=== PATIENT | female | born 1955 | race Caucasian/White ===

== ENCOUNTER 2017-02-14 06:31 | Inpatient (IN) | payer OTHER ==
[2017-02-14] MEDS ORDERED: DEXAMETHASONE SOD PHOSPHATE 10 MG/1 ML VIAL ONE (06:40)
[2017-02-14] MEDS ORDERED: MAGNESIUM SULF 50% (8.12 MEQ/2 ML-1 GM VIAL) ONE (06:40)
[2017-02-14] MEDS ORDERED: ALBUTEROL SO4 2.5/IPRATROPIUM 0.5 INH SOL 3 ML VIAL.NEB. NEB ONE ×3 (06:41→09:31)
[2017-02-14 06:48] VITALS: BMI 31.9
[2017-02-14] MEDS ORDERED: methylPREDNISolone NA SUCC 125 MG/2 ML VIAL IVPB ONE (07:17)
--- NOTE | 2017-02-14 07:18 | PDOC ---
History of Present Illness <Yomaira Fine - Last Filed: 02/14/17 08:42> - General History Source: Patient Exam Limitations: No Limitations - History of Present Illness Initial Comments: 02/14/17 07:18 CHIEF COMPLAINT: Shortness of breath HISTORY OF PRESENT ILLNESS: This is a 61 year old female with a history of asthma/COPD (steroid dependent, uses O2 prn), GERD, osteoporosis, Essie's thyroiditis, and MGUS who presents to the ED complaining of shortness of breath. She was feeling slightly more short of breath and noted increased sputum production when she went to bed last night and. At around 2:30am, she woke up coughing and felt a "pop" in the left side of her chest, becoming acutely more short of breath. She denies fevers, chills, hemoptysis, leg pain/ swelling, or any other symptoms. V/s on arrival are notable for SpO2 of 91% on RA (patient states her baseline is 96%) and RR 30. PCP is Dr. La Burrell Resaw Tailer is Dr. James REVIEW OF SYSTEMS: GENERAL/CONSTITUTIONAL: No fever or chills. No weakness. No weight change. HEAD, EYES, EARS, NOSE AND THROAT: No change in vision. No ear pain or discharge. No sore throat. CARDIOVASCULAR: Chest pain/tightness, worse with deep breathing. RESPIRATORY: See HPI. GASTROINTESTINAL: No nausea, vomiting, diarrhea or constipation. GENITOURINARY: No dysuria, frequency, or change in urination. MUSCULOSKELETAL: New pain and swelling in DIPs. SKIN: No rash or easy bruising. NEUROLOGIC: No headache, vertigo, loss of consciousness, or loss of sensation. PSYCHIATRIC: No depression or anxiety. ENDOCRINE: No increased thirst. No abnormal weight change. HEMATOLOGIC/LYMPHATIC: No anemia, easy bleeding, or history of blood clots. ALLERGIC/IMMUNOLOGIC: PCN and fluoroquinolone allergies. PHYSICAL EXAM: GENERAL: The patient is awake, alert, and in respiratory distress. ENT: Pupils equal, round and reactive to light, extraocular movements intact, sclera anicteric, conjunctiva clear. Neck supple. LUNGS: Breath sounds absent left side. Wheezing in right lung nolan. Tachypneic with accessory muscle use. CV: RRR, S1/S2, no MRG. Cap refill < 2 sec. ABDOMEN: Soft, obese, non-tender. EXTREMITIES: 1+ pitting LE edema bilaterally. NEUROLOGICAL: Normal speech. CN II-XII grossly intact. PSYCH: Normal mood, normal affect. SKIN: Warm, dry, normal turgor, no rashes or lesions noted. <Jami Dixon - Last Filed: 02/14/17 11:13> - General Chief Complaint: Respiratory Stated Complaint: DIFFICULTY BREATHING Time Seen by Provider: 02/14/17 07:10 Past History <Yomaira Fine - Last Filed: 02/14/17 08:42> - Past Medical History Asthma: Yes Cancer: No Cardiac Disorders: No CVA: No COPD: No CHF: No Diabetes: Yes (steroid induced pre-diabetic) GI Disorders: No Disorders: No HTN: No Hypercholesterolemia: No Liver Disease: No Seizures: No Thyroid Disease: No - Surgical History Abdominal Surgery: No Appendectomy: No Cardiac Surgery: No Cholecystectomy: No Lung Surgery: No Neurologic Surgery: No Orthopedic Surgery: Yes (numerous foot surgeries) - Psycho/Social/Smoking Cessation Hx Anxiety: No Suicidal Ideation: No Smoking History: Unknown if ever smoked Have you smoked in the past 12 months: No Number of Cigarettes Smoked Daily: 1 If you are a former smoker, when did you quit?: 2014 'Breaking Loose' booklet given: 02/27/16 Hx Alcohol Use: No Drug/Substance Use Hx: No Substance Use Type: None Hx Substance Use Treatment: No <Jami Dixon - Last Filed: 02/14/17 11:13> - Past Medical History Allergies/Adverse Reactions: Allergies Allergy/AdvReac Type Severity Reaction Status Date / Time Penicillins Allergy Intermediate Rash Verified 02/14/17 06:36 fluoroquinolones Allergy Severe Difficulty Uncoded 02/14/17 06:36 Breathing Home Medications: Ambulatory Orders Albuterol Sulfate Inhaler - [Ventolin HFA Inhaler -] 2 puff IH Q4H 09/11/15 Atorvastatin Ca [Lipitor] 20 mg PO HS 02/14/17 Azelastine/Fluticasone [Dymista Nasal [place]] 23 gm NS BID 02/14/17 BUPROPion HCL "SR" [Wellbutrin Sr [Nf]] 150 mg PO DAILY 02/14/17 Budesonide/Formeterol Fumarate [SYMBICORT 160/4.5mcg -] 2 inh PO BID 02/14/17 Cetirizine HCl [Zyrtec -] 10 mg PO DAILY 02/14/17 Cyclobenzaprine HCl [Flexeril 10 mg] 10 mg PO BID PRN 02/14/17 Cyclosporine [Restasis] 1 each OP BID 02/14/17 Lorazepam [Ativan] 1 mg PO DAILY PRN 02/14/17 Montelukast Na [Singulair -] 10 mg PO HS 02/14/17 Prednisone [Deltasone -] 0 mg PO ASDIR 02/14/17 *Physical Exam - Vital Signs Last Vital Signs Temp Pulse Resp BP Pulse Ox 69 22 142/86 92 L 02/14/17 06:36 02/14/17 06:36 02/14/17 06:36 02/14/17 06:36 <Yomaira Fine - Last Filed: 02/14/17 08:42> - Vital Signs Last Vital Signs Temp Pulse Resp BP Pulse Ox 69 22 142/86 92 L 02/14/17 06:36 02/14/17 06:36 02/14/17 06:36 02/14/17 06:36 <Jami Dixon - Last Filed: 02/14/17 11:13> Procedures - Chest Tube Left Mid Axillary Line Indication: Pneumothorax Anesthesia: 2% Lidocaine Sterile Draping: Yes Sterile Technique: Yes Marte of Air Tompkins: Yes Vaseline Gauze Dressing: Yes Tube Sutured to Skin: Yes Complications: No Post Procedure CXR: Yes Progress: 02/14/17 08:30 Paitent pulse ox was initially 91. A chest tube thoracostomy was performed on the left side. Area was cleaned with chlorhexidine and anesthetized with 2% lidocaine without epinephrine. Pigtail catheter was guided in between the ribs and lung was subsequently drained. Area was dressed with xeroform petrolatum and gauze. Patients pulse ox leveled to 100 at this time. <Yomaira Fine - Last Filed: 02/14/17 08:42> Heart Score/ECG Review - ECG Intrepretation Comment:: 02/14/17 10:21 NSR at 99bpm, no ST or T wave changes <aJmi Dixon - Last Filed: 02/14/17 11:13> ED Treatment Course - LABORATORY CBC & Chemistry Diagram: 02/14/17 07:45 02/14/17 07:45 - ADDITIONAL ORDERS Additional order review: Laboratory Results 02/14/17 07:45 INR 0.96 02/14/17 07:45 RBC 5.06 MCV 75.3 L MCHC 31.9 L RDW 18.7 H MPV 7.6 Neutrophils % Y Lymphocytes % Y - Medications Given in the ED: ED Medications Discontinued Medications Generic Name Dose Route Start Last Admin Trade Name Abril PRN Reason Stop Dose Admin Albuterol/Ipratropium 1 amp 02/14/17 07:30 02/14/17 07:51 Duoneb - NEB 02/14/17 07:46 1 amp Q15M KAMLESH Administration Hydromorphone HCl 1 mg 02/14/17 07:40 02/14/17 07:50 Dilaudid Injection - IVPUSH 02/14/17 07:41 1 mg ONCE ONE Administration Methylprednisolone Sodium Succinate 125 mg 02/14/17 07:17 02/14/17 07:50 Solu-Medrol - IVPB 02/14/17 07:18 125 mg ONCE ONE Administration <Uts,Yomaira - Last Filed: 02/14/17 08:42> - LABORATORY CBC & Chemistry Diagram: 02/14/17 07:45 02/14/17 07:45 - RADIOLOGY Radiology Studies Ordered: Category Date Time Status CHEST PA & LAT [RAD] Stat Radiology 02/14/17 07:17 Ordered <Jami Dixon - Last Filed: 02/14/17 11:13> Medical Decision Making - Critical Care Time Total Critical Care Time (minutes): 30 Critical Care Statement: The care of this patient involved high complexity decision making to prevent further life threatening deterioration of the patient 's condition and/or to evalute & treat vital organ system(s) failure or risk of failure. <Uts,Yomaira - Last Filed: 02/14/17 08:42> - Medical Decision Making 02/14/17 09:25 A/P: 61 year old female with cough and shortness of breath, suspect spontaneous PTX. 1. Patient accompanied for AP CXR - large left PTX seen 2. Pigtail catheter placed by Dr. Mejia with improvement in SpO2, improved work of breathing 3. Labs sent and notable for WBC 27.0 - patient does have chronic leukocytosis, but this is above baseline; troponin elevated at 0.18, ASA given, no ischemic changes on EKG 4. Repeat CXR shows decreased PTX; increased lung markings at right base noted 5. Will give Ceftriaxone (not history of PCN anaphylaxis, recently completed course of azithromycin for sinusitis) 6. DuoNebs and Solu-Medrol 125mg IVP given 7. Will request admission to telemetry - accepted by Dr. Gloria Burrell 02/14/17 11:[address] Valentin; he is not livestock commission agent and unavailable today. If repeat troponins are trending up, service digital imaging technician should be notified. Otherwise, he will see patient tomorrow. <Jami Dixon - Last Filed: 02/14/17 11:13> *DC/Admit/Observation/Transfer - Attestations Scribe Attestion: 02/14/17 08:32 Documentation prepared by Yomaira Fine, acting as medical language specialist for Beatriz Mejia MD. <Yomaira Fine - Last Filed: 02/14/17 08:42> - Discharge Dispostion Admit: Yes <Jami Dixon - Last Filed: 02/14/17 11:13> Diagnosis at time of Disposition: Elevated troponin Pneumothorax Qualifiers: Pneumothorax type: other pneumothorax Qualified Code(s): J93.83 - Other pneumothorax - Referrals
[2017-02-14] MEDS: ALBUTEROL SO4 2.5/IPRATROPIUM 0.5 INH SOL 3 ML VIAL.NEB. NEB SCH ×2 (07:30→07:51)
[2017-02-14] MEDS ORDERED: HYDROmorphone HCL CARPU-JECT 1 MG/1 ML DISP.SYRIN IVPUSH ONE ×2 (07:40→09:13)
[2017-02-14] MEDS ORDERED: HYDROmorphone HCL CARPU-JECT 1 MG/1 ML DISP.SYRIN ONE ×3 (07:42→12:48)
[2017-02-14 07:53] LABS: MCHC 31.9 g/dl (32.0-36.0); MEAN CELL VOLUME 75.3 fl (80-96); MEAN PLT VOLUME 7.6 fl (7.5-11.1); PLATELET COUNT 337 K/MM3 (134-434); RDW 18.7 % (11.6-15.6); WHITE BLOOD COUNT 27.9 K/mm3 (4.0-10.0)
[2017-02-14 08:07] LABS: INR 0.96 (0.82-1.09); PROTHROMBIN TIME (PATIENT) 10.6 SEC (9.98-11.88)
[2017-02-14] MEDS ORDERED: LIDOCAINE HCL 2% (20ML MULTI-DOSE VIAL) NR ONE (08:08)
[2017-02-14 08:31] LABS: ALBUMIN 3.5 g/dl (3.4-5.0); ANION GAP 10 (8-16); BILIRUBIN,TOTAL 0.2 mg/dL (0.2-1.0); CALCIUM 8.4 mg/dL (8.5-10.1); CO2 25 mmol/L (21-32); COCKROFT - GAULT 89.3605; CREATININE 0.8 mg/dL (0.55-1.02); GLUCOSE,RANDOM 100 mg/dL (74-106); SGOT/AST 27 U/L (15-37); SGPT/ALT 38 U/L (12-78)
[2017-02-14 08:32] LABS: ALK PHOS 55 U/L (45-117); TROPONIN I 0.18 ng/ml (0.00-0.05)
[2017-02-14 08:33] LABS: ANISOCYTOSIS 1+; PLATELET ESTIMATE ADEQUATE (NORMAL); POLYCHROMASIA FEW
--- NOTE | 2017-02-14 08:42 | PDOC ---
*Physical Exam - Vital Signs Last Vital Signs Temp Pulse Resp BP Pulse Ox 69 22 142/86 92 L 02/14/17 06:36 02/14/17 06:36 02/14/17 06:36 02/14/17 06:36 - Physical Exam General Appearance: Yes: Nourished HEENT: positive: Normal ENT Inspection Neck: positive: Trachea midline Respiratory/Chest: positive: Lungs Clear, Decreased Breath Sounds, Other ( decreased breath sounds left lung, wheezing bilaterally) Cardiovascular: positive: Regular Rhythm, Regular Rate, S1, S2. negative: Edema , JVD, Murmur Vascular Pulses: Dorsalis-Pedis (R): 2+, Doralis-Pedis (L): 2+ Gastrointestinal/Abdominal: positive: Normal Bowel Sounds. negative: Tender, Flat Rectal Exam: negative: heme negative stool Musculoskeletal: positive: Normal Inspection. negative: CVA Tenderness Extremity: positive: Normal Capillary Refill, Normal Inspection, Normal Range of Motion Integumentary: positive: Normal Color, Dry, Warm Neurologic: positive: Fully Oriented, Alert, Normal Mood/Affect, Normal Response ED Treatment Course - LABORATORY CBC & Chemistry Diagram: 02/26/17 05:18 02/26/17 05:18 - ADDITIONAL ORDERS Additional order review: Laboratory Results 02/14/17 02/14/17 02/14/17 07:45 07:45 07:45 INR 0.96 Sodium 141 Potassium 4.1 Chloride 106 Carbon Dioxide 25 Anion Gap 10 BUN 17 D Creatinine 0.8 Creat Clearance w eGFR > 60 Random Glucose 100 Calcium 8.4 L Total Bilirubin 0.2 D AST 27 D ALT 38 Alkaline Phosphatase 55 D Creatine Kinase 254 H D Troponin I 0.18 H Total Protein 7.0 Albumin 3.5 02/14/17 07:45 RBC 5.06 MCV 75.3 L MCHC 31.9 L RDW 18.7 H MPV 7.6 Neutrophils % 88.0 H Lymphocytes % 6.0 L D Monocytes % 5.0 D - Medications Given in the ED: ED Medications Discontinued Medications Generic Name Dose Route Start Last Admin Trade Name Freq PRN Reason Stop Dose Admin Albuterol/Ipratropium 1 amp 02/14/17 07:30 02/14/17 07:51 Duoneb - NEB 02/14/17 07:46 1 amp Q15M KAMLESH Administration Hydromorphone HCl 1 mg 02/14/17 07:40 02/14/17 07:50 Dilaudid Injection - IVPUSH 02/14/17 07:41 1 mg ONCE ONE Administration Methylprednisolone Sodium Succinate 125 mg 02/14/17 07:17 02/14/17 07:50 Solu-Medrol - IVPB 02/14/17 07:18 125 mg ONCE ONE Administration Medical Decision Making - Medical Decision Making 02/14/17 08:38 61 yo F COPD here today with sob and wheezing, was using breathing treatment at home, suddenly felt pop, suddenly had left sided chest pain, and sob. no h/o bleb, or prior known ptx. no known h/o cancer. no fever or chills. no n/v no on exam awake, alert, bilat wheezing, mild tachypnea, mild acces. muscle use. heart RRR no m/r/g. abd soft nt nd. ext no edema wwp. MDM: pna, copd excacerbation, chf, ptx. plan cxr nebs steroids, labs, ekg ttrop. CXR with PTX chest pigtail placed for spontaneous ptx, pt improved. tolerated well. oxygen sats 100 following. prior to procedure, old ct confirmed no h/o blebs from 4 mo prior. plan pulmonary consult ( pt pulm dr. Eleanor Connell) and admit. continued nebs. abx. 02/26/17 09:58 *DC/Admit/Observation/Transfer Diagnosis at time of Disposition: Elevated troponin Pneumothorax Qualifiers: Pneumothorax type: other pneumothorax Qualified Code(s): J93.83 - Other pneumothorax - Discharge Dispostion Admit: Yes - Referrals - Patient Instructions - Post Discharge Activity
[2017-02-14] MEDS ORDERED: AZITHROMYCIN IVPB 500 MG in DEXTROSE 5%-WATER - 250 ML IVPB ONE (09:27)
[2017-02-14] MEDS ORDERED: CEFTRIAXONE 1 GM in DEXTROSE 5%-WATER - 50 ML IVPB ONE (09:28)
[2017-02-14] MEDS ORDERED: CEFTRIAXONE 50 ML ONE (09:41)
[2017-02-14] MEDS ORDERED: ASPIRIN 81 MG CHEWABLE TABLETS PO SCH (10:00)
[2017-02-14] MEDS ORDERED: ASPIRIN 81 MG CHEWABLE TABLETS ONE (10:03)
[2017-02-14] MEDS: ALBUTEROL SO4 0.083% IH SOL 2.5 MG/3 ML VIAL.NEB. NEB SCH ×2 (10:15→10:30)
[2017-02-14 12:14] LABS: TROPONIN I 0.22 ng/ml (0.00-0.05)
--- NOTE | 2017-02-14 12:46 | HP ---
Admitting History and Physical - Primary Care Physician PCP: Amarjit Burrell - Admission Chief Complaint: CP, SOB History of Present Illness: Pt. with Hx/o COPD, Acute bronchitis for the last 2 weeks, treated with Prednison and Zitromax) by PCP (Dr. Ladarius Burrell) and Pulmonary (Dr. James), last night woke up and cough when heard a "pop" and developed CP and SOB. Pt. came to ER and was found to have left side pneumotorax; chest tube was placed in ER. Pt. also with elevated CE. Pt was admitted to Telemetry. 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: Peripheral Neuropathy (left hand) Cardiovascular: Yes: CHF (Diastolic) Pulmonary: Yes: Asthma, COPD Gastrointestinal: Yes: GERD Heme/Onc: Yes: Other (MGUS) - Past Surgical History Additional Past Surgical History: Foot Surgery Cataract surgery - Smoking History Smoking history: Unknown if ever smoked Have you smoked in the past 12 months: No Aproximately how many cigarettes per day: 1 If you are a former smoker, when did you quit?: 2014 - Alcohol/Substance Use Hx Alcohol Use: No - Social History History of Recent Travel: No Home Medications - Allergies Allergies/Adverse Reactions: Allergies Allergy/AdvReac Type Severity Reaction Status Date / Time Penicillins Allergy Intermediate Rash Verified 02/14/17 06:36 fluoroquinolones Allergy Severe Difficulty Uncoded 02/14/17 06:36 Breathing - Home Medications Home Medications: Ambulatory Orders Albuterol Sulfate Inhaler - [Ventolin HFA Inhaler -] 2 puff IH Q4H 09/11/15 Atorvastatin Ca [Lipitor] 20 mg PO HS 02/14/17 Azelastine/Fluticasone [Dymista Nasal [place]] 23 gm NS BID 02/14/17 BUPROPion HCL "SR" [Wellbutrin Sr [Nf]] 150 mg PO DAILY 02/14/17 Budesonide/Formeterol Fumarate [SYMBICORT 160/4.5mcg -] 2 inh PO BID 02/14/17 Cetirizine HCl [Zyrtec -] 10 mg PO DAILY 02/14/17 Cyclobenzaprine HCl [Flexeril 10 mg] 10 mg PO BID PRN 02/14/17 Cyclosporine [Restasis] 1 each OP BID 02/14/17 Lorazepam [Ativan] 1 mg PO DAILY PRN 02/14/17 Montelukast Na [Singulair -] 10 mg PO HS 02/14/17 Prednisone [Deltasone -] 0 mg PO ASDIR 02/14/17 Family Disease History - Family Disease History Family History: Denies Review of Systems - Review of Systems Constitutional: denies: Chills, Fever Eyes: denies: Blurred Vision, Double Vision HENT: denies: Difficult Swallowing, Ear Discharge, Ear Pain, Throat Pain Neck: denies: Decreased ROM, Stiffness Cardiovascular: reports: Chest Pain (with breathing), Shortness of Breath. denies: Edema, Palpitations Respiratory: reports: Cough, Wheezing Gastrointestinal: denies: Abdominal Pain, Constipation, Diarrhea, Nausea, Vomiting Genitourinary: denies: Burning, Discharge, Flank Pain Musculoskeletal: denies: Back Pain, Joint Pain Integumentary: denies: Bruising, Erythema, Rash Neurological: denies: Change in LOC, Change in Speech, Confusion, Dizziness Endocrine: denies: Excessive Sweating, Unexplained Weight Gain Hematology/Lymphatic: denies: Easily Bruised, Excessive Bleeding Psychiatric: denies: Anxiety, Depression Physical Examination Vital Signs: Vital Signs Temperature Pulse Rate 99 H 02/14/17 09:30 Respiratory Rate 24 02/14/17 09:30 Blood Pressure 141/79 02/14/17 09:30 O2 Sat by Pulse Oximetry (%) 92 L 02/14/17 09:30 Constitutional: Yes: Mild Distress (secondary to pain) Eyes: Yes: Conjunctiva Clear, EOM Intact, PERRL HENT: Yes: Atraumatic. No: Epistaxis, Rhinnorhea Neck: Yes: Trachea Midline. No: Lymphadenopathy Cardiovascular: Yes: Regular Rate and Rhythm, Tachycardia, S1, S2 Respiratory: Yes: Wheezes, Other (decreased BS on Left side). No: CTA Bilaterally Gastrointestinal: Yes: Normal Bowel Sounds, Soft, Abdomen, Obese. No: Tenderness ...Rectal Exam: Yes: Deferred Breast(s): Yes: Other (deferred) Musculoskeletal: No: Back Pain, Joint Swelling Edema: No Integumentary: No: Erythema, Rash Neurological: Yes: Alert, Oriented, Cran Nerves II-XII Intact Psychiatric: Yes: Alert, Oriented Labs: reviewed Imaging - Results Chest X-ray: Report Reviewed, Image Reviewed Problem List - Problems (1) Pneumothorax Assessment/Plan: s/p Chest tube placement. Pulmonary consult. Case was d/w Dr. 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 Pt. also received Zithromax. To cont. both. Code(s): J44.1 - CHRONIC OBSTRUCTIVE PULMONARY DISEASE W (ACUTE) EXACERBATION (3) Elevated troponin Assessment/Plan: Cardio consult. Pt. states that saw Dr. Izquierdo 1 or 2 years ago, had few tests and everything came back OK. Serial CE. ASA Lipitor Consider BB ECHO Code(s): R74.8 - ABNORMAL LEVELS OF OTHER SERUM ENZYMES (4) Chest pain Code(s): R07.9 - CHEST PAIN, UNSPECIFIED Assessment/Plan Case was reviewed with pt and familly at bedside, all questions were answered DVT proph- Heparin SQ Pain control- Dilaudid IVPB; to adjust for comfort w/o affecting respiratory function. Case was d/w pt's nurse ( several times). AM labs. Time spent for managing pt.'s care: over 80 min.
[2017-02-14] MEDS: HYDROmorphone HCL CARPU-JECT 1 MG/1 ML DISP.SYRIN IVPB PRN ×3 (13:01→22:12)
--- NOTE | 2017-02-14 13:24 | CON.PULM ---
Consult Consult Specialty:: PULMONARY Referred by:: Dr. Burrell Reason for Consultation:: pneumothorax - History of Present Illness Chief Complaint: chest pain History of Present Illness: 61yo female with h/o COPD, chronic hypoxic respiratory failure on home O2, GERD , osteoporosis, Essie's thyroiditis, MGUS who presents with sudden onset of chest pain and shortness of breath which woke her up from sleep. She felt a "pop " in her chest. No reported trauma. No prior history of pneumothorax. She stopped smoking a year and a half ago, started at age 27 and smoked on average 1 /2 PPD. She is maintained on chronic prednisone. Noted to have a left sided pneumothorax in the ER, pigtail catheter placed with partial re-expansion of the lung. 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) Cardio/Vascular: Yes: CHF (Diastolic) Pulmonary: Yes: Asthma, COPD Gastrointestinal: Yes: GERD Endocrine: Yes: Hypothyroidism - Alcohol/Substance Use Hx Alcohol Use: No - Smoking History Smoking history: Unknown if ever smoked Have you smoked in the past 12 months: No Aproximately how many cigarettes per day: 1 If you are a former smoker, when did you quit?: 2014 - Social History History of Recent Travel: No Home Medications - Allergies Allergies/Adverse Reactions: Allergies Allergy/AdvReac Type Severity Reaction Status Date / Time Penicillins Allergy Intermediate Rash Verified 02/14/17 06:36 fluoroquinolones Allergy Severe Difficulty Uncoded 02/14/17 06:36 Breathing - Home Medications Home Medications: Ambulatory Orders Albuterol Sulfate Inhaler - [Ventolin HFA Inhaler -] 2 puff IH Q4H 09/11/15 Atorvastatin Ca [Lipitor] 20 mg PO HS 02/14/17 Azelastine/Fluticasone [Dymista Nasal [place]] 23 gm NS BID 02/14/17 BUPROPion HCL "SR" [Wellbutrin Sr [Nf]] 150 mg PO DAILY 02/14/17 Budesonide/Formeterol Fumarate [SYMBICORT 160/4.5mcg -] 2 inh PO BID 02/14/17 Cetirizine HCl [Zyrtec -] 10 mg PO DAILY 02/14/17 Cyclobenzaprine HCl [Flexeril 10 mg] 10 mg PO BID PRN 02/14/17 Cyclosporine [Restasis] 1 each OP BID 02/14/17 Lorazepam [Ativan] 1 mg PO DAILY PRN 02/14/17 Montelukast Na [Singulair -] 10 mg PO HS 02/14/17 Prednisone [Deltasone -] 0 mg PO ASDIR 02/14/17 Review of Systems - Review of Systems Constitutional: denies: Chills, Fever Eyes: denies: Recent Change in Vision HENT: denies: Nasal Congestion, Throat Pain Neck: denies: Tenderness Cardiovascular: reports: Chest Pain, Shortness of Breath. denies: Edema, Palpitations Respiratory: reports: Cough, SOB. denies: Hemoptysis, Wheezing Gastrointestinal: denies: Abdominal Pain, Nausea, Vomiting Genitourinary: denies: Dysuria, Hematuria Neurological: denies: Dizziness, Headache Physical Exam Vital Sings: Vital Signs Temperature Pulse Rate 99 H 02/14/17 09:30 Respiratory Rate 24 02/14/17 09:30 Blood Pressure 141/79 02/14/17 09:30 O2 Sat by Pulse Oximetry (%) 92 L 02/14/17 09:30 Constitutional: Yes: Anxious Eyes: Yes: Conjunctiva Clear, EOM Intact HENT: Yes: Atraumatic, Normocephalic Neck: Yes: Supple, Trachea Midline Cardiovascular: Yes: Regular Rate and Rhythm Respiratory: Yes: Diminished (distant breath sounds) ...Clubbing: No Gastrointestinal: Yes: Normal Bowel Sounds, Soft. No: Tenderness Edema: No Neurological: Yes: Alert, Oriented Imaging - Results Chest X-ray: Report Reviewed, Image Reviewed (left pneumothorax) Problem List - Problems (1) Pneumothorax Code(s): J93.9 - PNEUMOTHORAX, UNSPECIFIED Qualifiers: Pneumothorax type: other pneumothorax Qualified Code(s): J93.83 - Other pneumothorax; J93.8 - Other pneumothorax and air leak (2) COPD exacerbation Code(s): J44.1 - CHRONIC OBSTRUCTIVE PULMONARY DISEASE W (ACUTE) EXACERBATION (3) Chest pain Code(s): R07.9 - CHEST PAIN, UNSPECIFIED (4) Elevated troponin Code(s): R74.8 - ABNORMAL LEVELS OF OTHER SERUM ENZYMES Assessment/Plan Spontaneous Pneumothorax COPD Chronic Hypoxic Respiratory Failure MGUS +Troponins - continue pigtail catheter to low wall suction - repeat CXR in AM - if pneumothorax resolved, will clamp tube and repeat CXR - supplemental O2 - continue steroids - inhaled bronchodilators - DVT prophylaxis Thank you for this consult Rosendo Pierre MD
[2017-02-14] MEDS: ALBUTEROL SO4 2.5/IPRATROPIUM 0.5 INH SOL 3 ML VIAL.NEB. NEB PRN (14:04)
[2017-02-14 14:09] LABS: TROPONIN I 0.28 ng/ml (0.00-0.05)
[2017-02-14] MEDS: PANTOPRAZOLE 20 MG TABLET (FP) PO SCH (14:50)
[2017-02-14] MEDS: LORATADINE 10 MG TABLET PO SCH (14:51)
[2017-02-14] MEDS ORDERED: PT OWN MED DRAWER 7, Y5N ONE (16:59)
[2017-02-14] MEDS: BUDESONIDE/FORMETEROL FUMARATE 160/4.5 mcg INHALER IH SCH (21:57)
[2017-02-14] MEDS: MONTELUKAST NA 10 MG TABLET PO SCH (21:58)
[2017-02-14] MEDS: HEPARIN NA (PORCINE) 5,000 UNITS/ML 1ML VIAL SQ SCH (21:58)
[2017-02-14] MEDS ORDERED: ATORVASTATIN CA 40 MG TABLET (FP) PO ONE (22:00)
[2017-02-14] MEDS ORDERED: ATORVASTATIN CA 20 MG TABLET (FP) PO SCH (22:00)
[2017-02-15] MEDS: HYDROmorphone HCL CARPU-JECT 1 MG/1 ML DISP.SYRIN IVPB PRN ×3 (04:55→20:58)
[2017-02-15 07:02] LABS: MCH 23.8 pg (25.7-33.7); MCHC 31.5 g/dl (32.0-36.0); MEAN CELL VOLUME 75.5 fl (80-96); PLATELET COUNT 352 K/MM3 (134-434); RDW 18.7 % (11.6-15.6); WHITE BLOOD COUNT 23.9 K/mm3 (4.0-10.0)
[2017-02-15 07:25] LABS: ALBUMIN 3.7 g/dl (3.4-5.0); ANION GAP 6 (8-16); CALCIUM 8.8 mg/dL (8.5-10.1); CO2 30 mmol/L (21-32); GLUCOSE,RANDOM 88 mg/dL (74-106); SGPT/ALT 39 U/L (12-78)
[2017-02-15 07:38] LABS: ALK PHOS 53 U/L (45-117); BILIRUBIN,TOTAL 0.4 mg/dL (0.2-1.0); COCKROFT - GAULT 89.3605; CREATININE 0.8 mg/dL (0.55-1.02); SGOT/AST 37 U/L (15-37); THYROID STIMULATING HORMONE 1.18 uIU/ml (0.358-3.74); TOT PROT 7.2 g/dl (6.4-8.2)
--- NOTE | 2017-02-15 09:10 | CON.CARD ---
Consult Consult Specialty:: cardiology Referred by:: neri Reason for Consultation:: cp, elev troponin - History of Present Illness Chief Complaint: cp/sob History of Present Illness: 61yo female presented with sudden onset of chest pain and shortness of breath which woke her up from sleep. describes feeling a "pop" in her chest. No prior history of pneumothorax. on prednisone maintenance for copd. in ER, cxr revealed left sided pneumothora-- pigtail catheter placed with partial re-expansion of the lung. still feeling sob; also admits to ongoing cp though mild and improved vs prior + cough and wheeze no palpitations PMH: COPD, chronic hypoxic respiratory failure on home O2, longtime prior cigs, GERD, osteoporosis, Essie's thyroiditis, MGUS, HPL - Past Medical History [employer]: Yes: Peripheral Neuropathy (left hand) Cardio/Vascular: Yes: CHF (Diastolic) Pulmonary: Yes: Asthma, COPD Gastrointestinal: Yes: GERD Endocrine: Yes: Hypothyroidism - Alcohol/Substance Use Hx Alcohol Use: No - Smoking History Smoking history: Unknown if ever smoked Have you smoked in the past 12 months: No Aproximately how many cigarettes per day: 1 If you are a former smoker, when did you quit?: 2014 - Social History History of Recent Travel: No Home Medications - Allergies Allergies/Adverse Reactions: Allergies Allergy/AdvReac Type Severity Reaction Status Date / Time Penicillins Allergy Intermediate Rash Verified 02/14/17 06:36 fluoroquinolones Allergy Severe Difficulty Uncoded 02/14/17 06:36 Breathing - Home Medications Home Medications: Ambulatory Orders Albuterol Sulfate Inhaler - [Ventolin HFA Inhaler -] 2 puff IH Q4H 09/11/15 Atorvastatin Ca [Lipitor] 20 mg PO HS 02/14/17 Azelastine/Fluticasone [Dymista Nasal [place]] 23 gm NS BID 02/14/17 BUPROPion HCL "SR" [Wellbutrin Sr [Nf]] 150 mg PO DAILY 02/14/17 Budesonide/Formeterol Fumarate [SYMBICORT 160/4.5mcg -] 2 inh PO BID 02/14/17 Cetirizine HCl [Zyrtec -] 10 mg PO DAILY 02/14/17 Cyclobenzaprine HCl [Flexeril 10 mg] 10 mg PO BID PRN 02/14/17 Cyclosporine [Restasis] 1 each OP BID 02/14/17 Lorazepam [Ativan] 1 mg PO DAILY PRN 02/14/17 Montelukast Na [Singulair -] 10 mg PO HS 02/14/17 Prednisone [Deltasone -] 0 mg PO ASDIR 02/14/17 Family Disease History - Family Disease History Family History: Denies (no cmp) Review of Systems - Review of Systems Constitutional: denies: Chills, Fever Eyes: denies: Eye Pain HENT: denies: Nasal Congestion Neck: denies: Stiffness Cardiovascular: denies: Palpitations Respiratory: reports: Cough, Wheezing Gastrointestinal: denies: Diarrhea, Rectal Bleeding Genitourinary: denies: Burning, Hematuria Musculoskeletal: denies: Muscle Pain Integumentary: denies: Rash Neurological: denies: Numbness, Seizure, Syncope Endocrine: denies: Excessive Sweating Hematology/Lymphatic: denies: Excessive Bleeding Vital Signs: Vital Signs Temperature 97.4 F L 02/15/17 05:37 Pulse Rate 88 02/15/17 05:37 Respiratory Rate 20 02/15/17 05:37 Blood Pressure 133/78 02/15/17 05:37 O2 Sat by Pulse Oximetry (%) 95 02/14/17 21:00 Constitutional: Yes: Well Nourished, No Distress Eyes: No: Sclera Icterus HENT: No: Nasal Congestion Neck: No: Decreased ROM Respiratory: Yes: Wheezes. No: Accessory Muscle Use, Rales Gastrointestinal: Yes: Normal Bowel Sounds. No: Distention, Hepatomegaly, Palpable Mass, Tenderness Cardiovascular: Yes: Regular Rate and Rhythm JVD: No Carotid Bruit: No PMI: Non-Displaced Heart Sounds: Yes: S1, S2. No: Gallop Murmur: No: Systolic Murmur, Diastolic Murmur Musculoskeletal: Yes: Other (No kyphosis) Extremities: No: Cold, Cyanosis Edema: No Peripheral Pulses: 2+ Left Carotid, 2+ Right Carotid, 2+ Left Doralis Pedis, 2+ Right Dorsalis Pedis Integumentary: No: Jaundice Neurological: Yes: Alert, Oriented (x3) Psychiatric: No: Agitated - Other Data Labs, Other Data: CBC, BMP 02/15/17 05:35 02/15/17 05:35 INR, PTT INR 0.96 (0.82-1.09) 02/14/17 07:45 Troponin, BNP 02/14/17 02/14/17 11:30 13:08 Troponin I 0.22 H 0.28 H Troponin, BNP 02/14/17 02/14/17 11:30 13:08 Troponin I 0.22 H 0.28 H Laboratory Tests 02/14/17 02/14/17 02/14/17 07:45 11:30 13:08 WBC Hgb Plt Count Sodium Potassium Carbon Dioxide BUN Creatinine AST ALT Creatine Kinase 254 H D 356 H D 393 H Troponin I 0.18 H 0.22 H 0.28 H TSH 02/15/17 02/15/17 05:35 05:35 WBC 23.9 H Hgb 11.8 Plt Count 352 Sodium 139 Potassium 4.1 Carbon Dioxide 30 BUN 19 H Creatinine 0.8 AST 37 D ALT 39 Creatine Kinase Troponin I TSH 1.18 tele: NSR ekg: NSR, normal axis, no path q's; no ST-T abnormality Assessment/Plan spontaneous PTX, severe copd on home O2 and maintenance steroids with a.e. here: -s/p pigtail catheter insertion -plan per pulm team -tx of copd per pulm as well elevated troponin: -trop rising slowly 0.18 to 0.28-->0.19 with elevated CPK likely mostly non- cardiac (i.e. skel muscle) -EKG without ischemic changes -hi risk for underlying obstructive CAD based on longstanding prior cig hx -the above alma-pck-mhod pattern to a very low peak troponin either represents plaque rupture ACS in very small vascular distribution, or Type II ME sec to hypoxia and hemondynamic changes. -f/u echo for LV fxn -should have risk-stratification with nuclear stress test prior to hospital discharge, once resp status is much more stable -cont tele x 24 hrs and if she remains cardiologically stable it can be d/c'd in am HTN: -bp mostly controlled here, occasionally mild-mod elevated -apparently not on bp meds at home -likely sec to acute sx's she's having here--observe trend HPL: -cont home atorva regimen
[2017-02-15 09:28] LABS: TROPONIN I 0.19 ng/ml (0.00-0.05)
[2017-02-15] MEDS ORDERED: PT OWN MED DRAWER 7, Y5N ONE (09:35)
[2017-02-15] MEDS: methylPREDNISolone NA SUCC 40 MG/1 ML VIAL IVPB SCH (10:08)
[2017-02-15] MEDS: HEPARIN NA (PORCINE) 5,000 UNITS/ML 1ML VIAL SQ SCH ×2 (10:09→21:00)
[2017-02-15] MEDS: PANTOPRAZOLE 20 MG TABLET (FP) PO SCH (10:13)
[2017-02-15] MEDS: ASPIRIN COATED 81 MG TABLET.EC PO SCH (10:13)
[2017-02-15] MEDS: LORATADINE 10 MG TABLET PO SCH (10:13)
[2017-02-15] MEDS: BUDESONIDE/FORMETEROL FUMARATE 160/4.5 mcg INHALER IH SCH ×2 (10:15→22:00)
--- NOTE | 2017-02-15 10:37 | EKG ---
Test Reason : Blood Pressure : / mmHG Vent. Rate : 099 BPM Atrial Rate : 099 BPM P-R Int : 152 ms QRS Dur : 076 ms QT Int : 352 ms P-R-T Axes : 061 056 066 degrees QTc Int : 451 ms NORMAL SINUS RHYTHM NORMAL ECG WHEN COMPARED WITH ECG OF 16-JUL-2016 11:16, NO SIGNIFICANT CHANGE WAS FOUND Confirmed by SUDHA TAPIA MD ([id number]) on 02/15/2017 10:37:07 AM Referred By: Confirmed By:SUDHA TAPIA MD
--- NOTE | 2017-02-15 11:34 | PN ---
Progress Note, Physician History of Present Illness: pulmonary alert,feeling better,less dyspnea ,+ chest discomfort secondary to chest tube - Current Medication List Current Medications: Active Medications Albuterol/Ipratropium (Duoneb -) 1 amp NEB Q4H PRN PRN Reason: SHORTNESS OF BREATH Last Admin: 02/14/17 14:04 Dose: 1 amp Aspirin (Ecotrin -) 81 mg PO DAILY [facility] Last Admin: 02/15/17 10:13 Dose: 81 mg Atorvastatin Calcium (Lipitor -) 20 mg PO [facility] Budesonide/Formoterol Fumarate (Symbicort 160/4.5mcg -) 2 puff IH BID [facility] Last Admin: 02/15/17 10:15 Dose: 2 puff Bupropion HCl (Wellbutrin Xl -) 150 mg PO DAILY [facility] Last Admin: 02/15/17 10:09 Dose: 150 mg Heparin Sodium (Porcine) (Heparin -) 5,000 unit SQ BID [facility] Last Admin: 02/15/17 10:09 Dose: 5,000 unit Hydromorphone HCl (Dilaudid Injection -) 1 mg IVPB Q4H PRN PRN Reason: PAIN Last Admin: 02/15/17 10:14 Dose: 1 mg Loratadine (Claritin -) 10 mg PO DAILY [facility] Last Admin: 02/15/17 10:13 Dose: 10 mg Methylprednisolone Sodium Succinate (Solu-Medrol -) 40 mg IVPB DAILY [facility] Last Admin: 02/15/17 10:08 Dose: 40 mg Montelukast Sodium (Singulair -) 10 mg PO [facility] Last Admin: 02/14/17 21:58 Dose: 10 mg Non-Formulary Medication (Azelastine/Fluticasone [Dymista Nasal [place]]) 23 gm NS BID [facility] Non-Formulary Medication (Cyclosporine [Restasis]) 1 each OP BID [facility] Pantoprazole Sodium (Protonix -) 20 mg PO DAILY [facility] Last Admin: 02/15/17 10:13 Dose: 20 mg - Objective Vital Signs: Vital Signs Temperature 98.2 F 02/15/17 09:00 Pulse Rate 102 H 02/15/17 09:00 Respiratory Rate 20 02/15/17 09:00 Blood Pressure 147/90 02/15/17 09:00 O2 Sat by Pulse Oximetry (%) 96 02/15/17 09:00 Constitutional: Yes: Well Nourished, Calm Eyes: Yes: WNL HENT: Yes: WNL Neck: Yes: WNL Cardiovascular: Yes: Regular Rate and Rhythm, S1, S2 Respiratory: Yes: Diminished, Wheezes (few scattered xenia wheezes) Gastrointestinal: Yes: Normal Bowel Sounds, Soft Extremities: Yes: WNL Edema: No Labs: CBC, BMP 02/15/17 05:35 02/15/17 05:35 INR, PTT INR 0.96 (0.82-1.09) 02/14/17 07:45 Assessment/Plan Problem List - Problems (1) Pneumothorax Code(s): J93.9 - PNEUMOTHORAX, UNSPECIFIED Qualifiers: Pneumothorax type: other pneumothorax Qualified Code(s): J93.83 - Other pneumothorax; J93.8 - Other pneumothorax and air leak (2) COPD exacerbation Code(s): J44.1 - CHRONIC OBSTRUCTIVE PULMONARY DISEASE W (ACUTE) EXACERBATION (3) Chest pain Code(s): R07.9 - CHEST PAIN, UNSPECIFIED (4) Elevated troponin Code(s): R74.8 - ABNORMAL LEVELS OF OTHER SERUM ENZYMES Assessment/Plan Spontaneous Pneumothorax COPD Chronic Hypoxic Respiratory Failure MGUS +Troponins - continue pigtail catheter to low wall suction - if pneumothorax resolved, will clamp tube and repeat CXR - supplemental O2 - steroids - inhaled bronchodilators - DVT prophylaxis - analgesics - thoracic surgery eval for possible pleuradesis DR GRAHAM
--- NOTE | 2017-02-15 13:45 | CONSULT ---
Consult - text type - Consultation Consultation Note: Thoracic Surgery Consultation: 61F with COPD, on home O2, h/o Essie's, and MGUS, presented ED with shortness of breath and pleuritic chest pain. Found to have a pneumothorax yesterday. Chest tube drainage done in ED and lung expanded. Referred from Dr. Pierre and Dr. Burrell. PE: VSS CT in place, tidaling with small air-leak on suction, not on water seal. WBC elevated (secondary to steroids?) Imp/Plan: Pneumothorax in setting of COPD Recommend CT scan and continued chest tube drainage for now Would do clamp trial prior to removing tube after >48 hours of suction and no evidence of air-leak. I have lowered suction to -10 for now. I have spent 40 minutes with >50% spent in counseling and coordination of care including history, physical exam, review of imaging, and discussion with Dr. Pierre and nursing staff.
[2017-02-15] MEDS: ALBUTEROL SO4 2.5/IPRATROPIUM 0.5 INH SOL 3 ML VIAL.NEB. NEB PRN ×2 (14:03→18:50)
--- NOTE | 2017-02-15 19:14 | PN ---
Progress Note, Physician Chief Complaint: events noted admitted with spontaneous pneumothorax afetr a coughing spell at home had chest tube placed in ER; admitted to telemetry seen by cardio and pulmonary has pleuritic CP and + troponins - Current Medication List Current Medications: Active Medications Albuterol/Ipratropium (Duoneb -) 1 amp NEB Q4H PRN PRN Reason: SHORTNESS OF BREATH Last Admin: 02/15/17 14:03 Dose: 1 amp Aspirin (Ecotrin -) 81 mg PO DAILY [facility] Last Admin: 02/15/17 10:13 Dose: 81 mg Atorvastatin Calcium (Lipitor -) 20 mg PO [facility] Budesonide/Formoterol Fumarate (Symbicort 160/4.5mcg -) 2 puff IH BID [facility] Last Admin: 02/15/17 10:15 Dose: 2 puff Bupropion HCl (Wellbutrin Xl -) 150 mg PO DAILY [facility] Last Admin: 02/15/17 10:09 Dose: 150 mg Heparin Sodium (Porcine) (Heparin -) 5,000 unit SQ BID [facility] Last Admin: 02/15/17 10:09 Dose: 5,000 unit Hydromorphone HCl (Dilaudid Injection -) 1 mg IVPB Q4H PRN PRN Reason: PAIN Last Admin: 02/15/17 10:14 Dose: 1 mg Loratadine (Claritin -) 10 mg PO DAILY [facility] Last Admin: 02/15/17 10:13 Dose: 10 mg Methylprednisolone Sodium Succinate (Solu-Medrol -) 40 mg IVPB DAILY [facility] Last Admin: 02/15/17 10:08 Dose: 40 mg Montelukast Sodium (Singulair -) 10 mg PO HS [facility] Last Admin: 02/14/17 21:58 Dose: 10 mg Non-Formulary Medication (Azelastine/Fluticasone [Dymista Nasal [place]]) 23 gm NS BID [facility] Non-Formulary Medication (Cyclosporine [Restasis]) 1 each OP BID [facility] Pantoprazole Sodium (Protonix -) 20 mg PO DAILY [facility] Last Admin: 02/15/17 10:13 Dose: 20 mg - Objective Vital Signs: Vital Signs Temperature 97.9 F 02/15/17 18:00 Pulse Rate 83 02/15/17 18:00 Respiratory Rate 19 02/15/17 18:00 Blood Pressure 126/64 02/15/17 18:00 O2 Sat by Pulse Oximetry (%) 98 02/15/17 14:00 Constitutional: Yes: No Distress, Calm Eyes: Yes: Conjunctiva Clear HENT: Yes: Atraumatic Neck: Yes: Supple Cardiovascular: Yes: Regular Rate and Rhythm Respiratory: Yes: Rales, Other (L chest tube) Gastrointestinal: Yes: Soft. No: Distention, Tenderness Genitourinary: No: CVA Tenderness - Left, CVA Tenderness - Right Musculoskeletal: No: Joint Stiffness, Joint Swelling Extremities: No: Cold, Cool, Cyanosis Edema: No Peripheral Pulses WNL: Yes Integumentary: No: Rash, Venous Stasis Changes Neurological: Yes: WNL, Alert, Oriented ...Motor Strength: WNL Psychiatric: Yes: WNL, Alert, Oriented. No: Agitated, Suicidal Ideation Labs: CBC, BMP 02/15/17 05:35 02/15/17 05:35 INR, PTT INR 0.96 (0.82-1.09) 02/14/17 07:45 - ....Imaging Other: Report Reviewed Assessment/Plan Spontaneous Pneumothorax after coughing spell at home COPD O2 dep Chronic Hypoxic Respiratory Failure +Troponins, high WBC on steroids - continue pigtail catheter to low wall suction - if pneumothorax resolved, will clamp tube and repeat CXR - supplemental O2 - steroids - inhaled bronchodilators - DVT prophylaxis - analgesics - thoracic surgery eval for possible pleurodesis - f/u labs [place] pfx d/w pt and staff
[2017-02-15] MEDS: ATORVASTATIN CA 20 MG TABLET (FP) PO SCH (21:00)
[2017-02-16] MEDS: MONTELUKAST NA 10 MG TABLET PO SCH ×2 (04:30→20:10)
[2017-02-16] MEDS ORDERED: PT OWN MED DRAWER 7, Y5N ONE (09:53)
[2017-02-16] MEDS: PANTOPRAZOLE 20 MG TABLET (FP) PO SCH (09:54)
[2017-02-16] MEDS: ASPIRIN COATED 81 MG TABLET.EC PO SCH (09:54)
[2017-02-16] MEDS: LORATADINE 10 MG TABLET PO SCH (09:54)
[2017-02-16] MEDS: HEPARIN NA (PORCINE) 5,000 UNITS/ML 1ML VIAL SQ SCH ×2 (09:54→20:10)
[2017-02-16] MEDS: methylPREDNISolone NA SUCC 40 MG/1 ML VIAL IVPB SCH ×3 (09:55→20:12)
[2017-02-16] MEDS: BUDESONIDE/FORMETEROL FUMARATE 160/4.5 mcg INHALER IH SCH ×2 (09:55→20:11)
--- NOTE | 2017-02-16 09:59 | PN ---
Progress Note, Physician Chief Complaint: OOB to chair wheezing, on/off SOB, occasional L CP at the site of the chest tube. - Current Medication List Current Medications: Active Medications Albuterol/Ipratropium (Duoneb -) 1 amp NEB Q4H PRN PRN Reason: SHORTNESS OF BREATH Last Admin: 02/16/17 00:00 Dose: 1 amp Aspirin (Ecotrin -) 81 mg PO DAILY [facility] Last Admin: 02/16/17 09:54 Dose: 81 mg Atorvastatin Calcium (Lipitor -) 20 mg PO HS [facility] Last Admin: 02/15/17 21:00 Dose: 20 mg Budesonide/Formoterol Fumarate (Symbicort 160/4.5mcg -) 2 puff IH BID [facility] Last Admin: 02/16/17 09:55 Dose: 2 puff Bupropion HCl (Wellbutrin Xl -) 150 mg PO DAILY [facility] Last Admin: 02/16/17 09:54 Dose: 150 mg Heparin Sodium (Porcine) (Heparin -) 5,000 unit SQ BID [facility] Last Admin: 02/16/17 09:54 Dose: 5,000 unit Hydromorphone HCl (Dilaudid Injection -) 1 mg IVPB Q4H PRN PRN Reason: PAIN Last Admin: 02/15/17 20:58 Dose: 1 mg Loratadine (Claritin -) 10 mg PO DAILY [facility] Last Admin: 02/16/17 09:54 Dose: 10 mg Methylprednisolone Sodium Succinate (Solu-Medrol -) 40 mg IVPB DAILY [facility] Last Admin: 02/16/17 09:55 Dose: 40 mg Montelukast Sodium (Singulair -) 10 mg PO HS [facility] Last Admin: 02/16/17 04:30 Dose: 10 mg Non-Formulary Medication (Azelastine/Fluticasone [Dymista Nasal [place]]) 23 gm NS BID [facility] Non-Formulary Medication (Cyclosporine [Restasis]) 1 each OP BID [facility] Pantoprazole Sodium (Protonix -) 20 mg PO DAILY [facility] Last Admin: 02/16/17 09:54 Dose: 20 mg - Objective Vital Signs: Vital Signs Temperature 98 F 02/16/17 06:00 Pulse Rate 91 H 02/16/17 06:00 Respiratory Rate 20 02/16/17 06:00 Blood Pressure 114/72 02/16/17 06:00 O2 Sat by Pulse Oximetry (%) 95 02/15/17 21:00 Constitutional: Yes: Calm Eyes: Yes: Conjunctiva Clear HENT: Yes: Atraumatic Neck: Yes: Supple Cardiovascular: Yes: Regular Rate and Rhythm Respiratory: Yes: Wheezes Gastrointestinal: Yes: Soft. No: Distention, Tenderness Genitourinary: No: CVA Tenderness - Left, CVA Tenderness - Right Musculoskeletal: No: Joint Stiffness, Joint Swelling Extremities: No: Cold, Cool Edema: No Peripheral Pulses WNL: Yes Neurological: Yes: WNL, Alert, Oriented ...Motor Strength: WNL Psychiatric: Yes: WNL, Alert, Oriented. No: Agitated, Suicidal Ideation Labs: CBC, BMP 02/15/17 05:35 02/15/17 05:35 INR, PTT INR 0.96 (0.82-1.09) 02/14/17 07:45 - ....Imaging Other: Report Reviewed Assessment/Plan Spontaneous Pneumothorax after coughing spell at home COPD O2 dep Chronic Hypoxic Respiratory Failure +Troponins, high WBC on steroids - chest tube in, pulmonary and CT surgery f/u - chest CT ordered but pt could not lye down, wheezing; will increase iv solumedrol to 60 mg IVPB q6 h d/w pulm dr Mccoy. - supplemental O2 - inhaled bronchodilators - DVT prophylaxis - analgesics - f/u labs prognosis guarded falls pfx d/w pt and staff t time 35 min
--- NOTE | 2017-02-16 10:05 | PN ---
Progress Note (short form) - Note Progress Note: Chief Complaint: cp/sob S: breathing improving since pigtail placement. Still with limiting dyspnea upon any ambulation. + cough. + CP persists. Patient could not tolerate going down for scan this morning. Current Medications Albuterol/Ipratropium (Duoneb -) 1 amp NEB Q4H PRN PRN Reason: SHORTNESS OF BREATH Last Admin: 02/16/17 00:00 Dose: 1 amp Aspirin (Ecotrin -) 81 mg PO DAILY [facility] Last Admin: 02/16/17 09:54 Dose: 81 mg Atorvastatin Calcium (Lipitor -) 20 mg PO HS [facility] Last Admin: 02/15/17 21:00 Dose: 20 mg Budesonide/Formoterol Fumarate (Symbicort 160/4.5mcg -) 2 puff IH BID [facility] Last Admin: 02/16/17 09:55 Dose: 2 puff Bupropion HCl (Wellbutrin Xl -) 150 mg PO DAILY [facility] Last Admin: 02/16/17 09:54 Dose: 150 mg Heparin Sodium (Porcine) (Heparin -) 5,000 unit SQ BID [facility] Last Admin: 02/16/17 09:54 Dose: 5,000 unit Hydromorphone HCl (Dilaudid Injection -) 1 mg IVPB Q4H PRN PRN Reason: PAIN Last Admin: 02/15/17 20:58 Dose: 1 mg Loratadine (Claritin -) 10 mg PO DAILY [facility] Last Admin: 02/16/17 09:54 Dose: 10 mg Methylprednisolone Sodium Succinate (Solu-Medrol -) 40 mg IVPB DAILY [facility] Last Admin: 02/16/17 09:55 Dose: 40 mg Montelukast Sodium (Singulair -) 10 mg PO HS [facility] Last Admin: 02/16/17 04:30 Dose: 10 mg Non-Formulary Medication (Azelastine/Fluticasone [Dymista Nasal [place]]) 23 gm NS BID [facility] Non-Formulary Medication (Cyclosporine [Restasis]) 1 each OP BID [facility] Pantoprazole Sodium (Protonix -) 20 mg PO DAILY [facility] Last Admin: 02/16/17 09:54 Dose: 20 mg Vital Signs - 24 hr 02/15/17 02/15/17 02/15/17 14:00 18:00 21:00 Temperature 97.9 F Pulse Rate 97 H 83 Respiratory 19 22 Rate Blood Pressure 126/64 O2 Sat by Pulse 98 95 Oximetry (%) 02/16/17 02/16/17 02:00 06:00 Temperature 98 F Pulse Rate 102 H 91 H Respiratory 22 20 Rate Blood Pressure 126/69 114/72 O2 Sat by Pulse Oximetry (%) Intake & Output 02/14/17 02/15/17 02/16/17 02/17/17 07:59 07:59 07:59 07:59 Intake Total 350 50 50 Balance 350 50 50 Weight 169 lb 169 lb Constitutional: Yes: Well Nourished, No Distress Eyes: No: Sclera Icterus HENT: No: Nasal Congestion Neck: No: Decreased ROM Respiratory: Yes: diffuse rhonchi No: Accessory Muscle Use, Rales Gastrointestinal: Yes: Normal Bowel Sounds. No: Distention, Hepatomegaly, Palpable Mass, Tenderness Cardiovascular: Yes: Regular Rate and Rhythm JVD: No Carotid Bruit: No PMI: Non-Displaced Heart Sounds: Yes: S1, S2. No: Gallop Murmur: No: Systolic Murmur, Diastolic Murmur Musculoskeletal: Yes: Other (No kyphosis) Extremities: No: Cold, Cyanosis Edema: No Peripheral Pulses: 2+ Left Carotid, 2+ Right Carotid, 2+ Left Doralis Pedis, 2+ Right Dorsalis Pedis Integumentary: No: Jaundice Neurological: Yes: Alert, Oriented (x3) Psychiatric: No: Agitated - Other Data Labs, Other Data: no CBC, BMP tele: NSR/sinus tach ekg: NSR, normal axis, no path q's; no ST-T abnormality echo here: tds. nl lv/rv. valves not well seen but no sig ab. Assessment/Plan 61yo with h/o dchf, hl, COPD, chronic hypoxic respiratory failure on home O2, longtime prior cigs, GERD, osteoporosis, Essie's thyroiditis, MGUS who p/w CP/sob found to have ptx. spontaneous PTX, severe copd on home O2 and maintenance steroids with a.e. here: -s/p pigtail catheter insertion -plan per pulm team -tx of copd per pulm as well elevated troponin: -trop rising slowly 0.18 to 0.28-->0.19 with elevated CPK likely mostly non- cardiac (i.e. skel muscle) -EKG without ischemic changes. echo without rwma. -hi risk for underlying obstructive CAD based on longstanding prior cig hx -the above [id number] pattern to a very low peak troponin either represents plaque rupture ACS in very small vascular distribution, or Type II IA sec to hypoxia and hemondynamic changes. -should have risk-stratification with nuclear stress test prior to hospital discharge, once resp status is much more stable and pigtail catheter removed. - tele x 24 hrs nsr HTN: -bp controlled here, off bp meds (not on bp meds at home) -initial elevations likely sec to acute sx's HPL: -cont home atorva regimen
--- NOTE | 2017-02-16 10:36 | PN ---
Progress Note, Physician History of Present Illness: pulmonary alert,siting oob-chair,more congested today,+wheezing. pt unable to lay flat for chest ct - Current Medication List Current Medications: Active Medications Albuterol/Ipratropium (Duoneb -) 1 amp NEB Q4H PRN PRN Reason: SHORTNESS OF BREATH Last Admin: 02/16/17 00:00 Dose: 1 amp Aspirin (Ecotrin -) 81 mg PO DAILY [facility] Last Admin: 02/16/17 09:54 Dose: 81 mg Atorvastatin Calcium (Lipitor -) 20 mg PO HS [facility] Last Admin: 02/15/17 21:00 Dose: 20 mg Budesonide/Formoterol Fumarate (Symbicort 160/4.5mcg -) 2 puff IH BID [facility] Last Admin: 02/16/17 09:55 Dose: 2 puff Bupropion HCl (Wellbutrin Xl -) 150 mg PO DAILY [facility] Last Admin: 02/16/17 09:54 Dose: 150 mg Heparin Sodium (Porcine) (Heparin -) 5,000 unit SQ BID [facility] Last Admin: 02/16/17 09:54 Dose: 5,000 unit Hydromorphone HCl (Dilaudid Injection -) 1 mg IVPB Q4H PRN PRN Reason: PAIN Last Admin: 02/15/17 20:58 Dose: 1 mg Loratadine (Claritin -) 10 mg PO DAILY [facility] Last Admin: 02/16/17 09:54 Dose: 10 mg Methylprednisolone Sodium Succinate (Solu-Medrol -) 40 mg IVPB Q6H-IV [facility] Montelukast Sodium (Singulair -) 10 mg PO [facility] Last Admin: 02/16/17 04:30 Dose: 10 mg Non-Formulary Medication (Azelastine/Fluticasone [Dymista Nasal [place]]) 23 gm NS BID [facility] Non-Formulary Medication (Cyclosporine [Restasis]) 1 each OP BID [facility] Pantoprazole Sodium (Protonix -) 20 mg PO DAILY [facility] Last Admin: 02/16/17 09:54 Dose: 20 mg - Objective Vital Signs: Vital Signs Temperature 98 F 02/16/17 06:00 Pulse Rate 91 H 02/16/17 06:00 Respiratory Rate 20 02/16/17 06:00 Blood Pressure 114/72 02/16/17 06:00 O2 Sat by Pulse Oximetry (%) 95 02/15/17 21:00 Constitutional: Yes: Well Nourished, Calm Eyes: Yes: WNL HENT: Yes: Nasal Congestion Neck: Yes: WNL Cardiovascular: Yes: Regular Rate and Rhythm, S1, S2 Respiratory: Yes: Wheezes (bilateral expiratory and inspiratory wheezes) Gastrointestinal: Yes: Normal Bowel Sounds, Soft Extremities: Yes: WNL Edema: No Labs: CBC, BMP 02/15/17 05:35 02/15/17 05:35 INR, PTT INR 0.96 (0.82-1.09) 02/14/17 07:45 Assessment/Plan Problem List - Problems (1) Pneumothorax Code(s): J93.9 - PNEUMOTHORAX, UNSPECIFIED Qualifiers: Pneumothorax type: other pneumothorax Qualified Code(s): J93.83 - Other pneumothorax; J93.8 - Other pneumothorax and air leak (2) COPD exacerbation Code(s): J44.1 - CHRONIC OBSTRUCTIVE PULMONARY DISEASE W (ACUTE) EXACERBATION (3) Chest pain Code(s): R07.9 - CHEST PAIN, UNSPECIFIED (4) Elevated troponin Code(s): R74.8 - ABNORMAL LEVELS OF OTHER SERUM ENZYMES Assessment/Plan Spontaneous Pneumothorax COPD Chronic Hypoxic Respiratory Failure MGUS +Troponins - continue pigtail catheter to low wall suction - supplemental O2 - continue iv steroids - inhaled bronchodilators - DVT prophylaxis - analgesics DR GRAHAM
[2017-02-16] MEDS: HYDROmorphone HCL CARPU-JECT 1 MG/1 ML DISP.SYRIN IVPB PRN ×2 (11:26→20:02)
[2017-02-16] MEDS: ATORVASTATIN CA 20 MG TABLET (FP) PO SCH (20:11)
[2017-02-16] MEDS: ALBUTEROL SO4 2.5/IPRATROPIUM 0.5 INH SOL 3 ML VIAL.NEB. NEB PRN ×3 (20:29→23:49)
[2017-02-17] MEDS: ALBUTEROL SO4 2.5/IPRATROPIUM 0.5 INH SOL 3 ML VIAL.NEB. NEB PRN ×2 (06:20→19:18)
[2017-02-17 07:55] LABS: BASOPHIL 0.6 % (0-2.0); MCH 23.8 pg (25.7-33.7); MCHC 31.7 g/dl (32.0-36.0); MEAN CELL VOLUME 75.1 fl (80-96); MEAN PLT VOLUME 8.1 fl (7.5-11.1); NEUTROPHILS 82.5 % (42.8-82.8); PLATELET COUNT 339 K/MM3 (134-434); RDW 18.6 % (11.6-15.6); WHITE BLOOD COUNT 17.7 K/mm3 (4.0-10.0)
[2017-02-17 08:58] LABS: ALBUMIN 3.4 g/dl (3.4-5.0); ALK PHOS 54 U/L (45-117); ANION GAP 9 (8-16); BILIRUBIN,TOTAL 0.3 mg/dL (0.2-1.0); CALCIUM 9.3 mg/dL (8.5-10.1); CO2 32 mmol/L (21-32); CREATININE 0.6 mg/dL (0.55-1.02); GLUCOSE,RANDOM 110 mg/dL (74-106); SGOT/AST 24 U/L (15-37); SGPT/ALT 38 U/L (12-78); TOT PROT 6.9 g/dl (6.4-8.2)
--- NOTE | 2017-02-17 10:43 | PN ---
Progress Note, Physician Chief Complaint: feels better today; less wheezing on higher doses of steroids; L CT in; less CP less SOB d/w common law at bedside about pt's condition and treatment - Current Medication List Current Medications: Active Medications Acetaminophen (Tylenol -) 650 mg PO Q6H PRN PRN Reason: FEVER OR PAIN Albuterol/Ipratropium (Duoneb -) 1 amp NEB Q4H PRN PRN Reason: SHORTNESS OF BREATH Last Admin: 02/17/17 06:20 Dose: 1 amp Aspirin (Ecotrin -) 81 mg PO DAILY [facility] Last Admin: 02/16/17 09:54 Dose: 81 mg Atorvastatin Calcium (Lipitor -) 20 mg PO HS [facility] Last Admin: 02/16/17 20:11 Dose: 20 mg Budesonide/Formoterol Fumarate (Symbicort 160/4.5mcg -) 2 puff IH BID [facility] Last Admin: 02/16/17 20:11 Dose: 2 puff Bupropion HCl (Wellbutrin Xl -) 150 mg PO DAILY [facility] Last Admin: 02/16/17 09:54 Dose: 150 mg Heparin Sodium (Porcine) (Heparin -) 5,000 unit SQ BID [facility] Last Admin: 02/16/17 20:10 Dose: 5,000 unit Loratadine (Claritin -) 10 mg PO DAILY [facility] Last Admin: 02/16/17 09:54 Dose: 10 mg Methylprednisolone Sodium Succinate (Solu-Medrol -) 40 mg IVPB Q6H-IV [facility] Last Admin: 02/16/17 20:12 Dose: 40 mg Montelukast Sodium (Singulair -) 10 mg PO HS [facility] Last Admin: 02/16/17 20:10 Dose: 10 mg Non-Formulary Medication (Azelastine/Fluticasone [Dymista Nasal [place]]) 23 gm NS BID [facility] Non-Formulary Medication (Cyclosporine [Restasis]) 1 each OP BID [facility] Pantoprazole Sodium (Protonix -) 20 mg PO DAILY [facility] Last Admin: 02/16/17 09:54 Dose: 20 mg - Objective Vital Signs: Vital Signs Temperature 97.6 F 02/17/17 06:25 Pulse Rate 94 H 02/17/17 06:25 Respiratory Rate 20 02/17/17 06:25 Blood Pressure 127/86 02/17/17 06:25 O2 Sat by Pulse Oximetry (%) 95 02/16/17 21:00 Constitutional: Yes: No Distress, Calm Eyes: Yes: Conjunctiva Clear HENT: Yes: Atraumatic Neck: Yes: Supple Cardiovascular: Yes: Regular Rate and Rhythm Respiratory: Yes: Wheezes Gastrointestinal: Yes: Soft. No: Distention, Tenderness Genitourinary: No: CVA Tenderness - Left, CVA Tenderness - Right Musculoskeletal: No: Joint Stiffness, Joint Swelling Extremities: No: Cold, Cool Edema: No Peripheral Pulses WNL: Yes Integumentary: No: Rash, Venous Stasis Changes Neurological: Yes: WNL, Alert, Oriented ...Motor Strength: WNL Psychiatric: Yes: WNL, Alert, Oriented. No: Agitated, Suicidal Ideation Labs: CBC, BMP 02/17/17 06:20 02/17/17 06:20 INR, PTT INR 0.96 (0.82-1.09) 02/14/17 07:45 - ....Imaging Other: Report Reviewed Assessment/Plan Spontaneous Pneumothorax after coughing spell at home COPD O2 dep Chronic Hypoxic Respiratory Failure +Troponins, high WBC on steroids - chest tube in, pulmonary and CT surgery f/u - chest CT still pending; increased iv solumedrol to 60 mg IVPB q6h - supplemental O2 - inhaled bronchodilators - DVT prophylaxis - analgesics - f/u labs prognosis guarded falls pfx d/w pt and staff
--- NOTE | 2017-02-17 10:47 | PN ---
Progress Note (short form) - Note Progress Note: Chief Complaint: cp/sob S: Still with limiting dyspnea upon any ambulation. + cough. + CP persists. No dizzy/palps Current Medications Generic Name Dose Route Start Last Admin Trade Name Freq PRN Reason Stop Dose Admin Acetaminophen 650 mg 02/16/17 21:22 Tylenol - PO Q6H PRN FEVER OR PAIN Albuterol/Ipratropium 1 amp 02/14/17 13:23 02/17/17 06:20 Duoneb - NEB 1 amp Q4H PRN Administration SHORTNESS OF BREATH Aspirin 81 mg 02/15/17 10:00 02/16/17 09:54 Ecotrin - PO 81 mg DAILY [facility] Administration Atorvastatin Calcium 20 mg 02/15/17 22:00 02/16/17 20:11 Lipitor - PO 20 mg HS [facility] Administration Budesonide/Formoterol Fumarate 2 puff 02/14/17 22:00 02/16/17 20:11 Symbicort 160/4.5mcg - IH 2 puff BID [facility] Administration Bupropion HCl 150 mg 02/14/17 14:00 02/16/17 09:54 Wellbutrin Xl - PO 150 mg DAILY [facility] Administration Heparin Sodium (Porcine) 5,000 unit 02/14/17 22:00 02/16/17 20:10 Heparin - SQ 5,000 unit BID [facility] Administration Loratadine 10 mg 02/14/17 14:00 02/16/17 09:54 Claritin - PO 10 mg DAILY [facility] Administration Methylprednisolone Sodium Succinate 40 mg 02/16/17 15:00 02/16/17 20:12 Solu-Medrol - IVPB 40 mg Q6H-IV [facility] Administration Montelukast Sodium 10 mg 02/14/17 22:00 02/16/17 20:10 Singulair - PO 10 mg HS [facility] Administration Non-Formulary Medication 23 gm 02/14/17 22:00 Azelastine/Fluticasone [Dymista Nasal [place]] NS BID [facility] Non-Formulary Medication 1 each 02/14/17 13:15 Cyclosporine [Restasis] OP BID [facility] Pantoprazole Sodium 20 mg 02/14/17 14:00 02/16/17 09:54 Protonix - PO 20 mg DAILY [facility] Administration Vital Signs Period Temp Pulse Resp BP Sys/Stringer Pulse Ox Last 24 Hr 97.5 F-98.2 F 81-101 18-22 122-142/72-95 95 Constitutional: Yes: Well Nourished, No Distress Eyes: No: Sclera Icterus Respiratory: Yes: diffuse rhonchi/wheezes bl No: Accessory Muscle Use, Rales Gastrointestinal: Yes: Normal Bowel Sounds. No: Distention, Hepatomegaly, Palpable Mass, Tenderness Cardiovascular: Yes: Regular Rate and Rhythm JVD: No Heart Sounds: Yes: S1, S2. No: Gallop Murmur: No: Systolic Murmur, Diastolic Murmur Extremities: No: Cold, Cyanosis Edema: No Integumentary: No: Jaundice diaphoresis Neurological: Yes: Alert, Oriented (x3) Psychiatric: No: Agitated - Other Data Labs, Other Data: CBC, BMP 02/17/17 06:20 02/17/17 06:20 tele: SR/sinus tach ekg: NSR, normal axis, no path q's; no ST-T abnormality echo here: tds. nl lv/rv. valves not well seen but no sig ab. Assessment/Plan 61yo with h/o dchf, hl, COPD, chronic hypoxic respiratory failure on home O2, longtime prior cigs, GERD, osteoporosis, Essie's thyroiditis, MGUS who p/w CP/sob found to have ptx. spontaneous PTX, severe copd on home O2 and maintenance steroids with a.e. here: -s/p pigtail catheter insertion -still with sob, wheezing -tx of copd per pulm elevated troponin: -trop rising slowly 0.18 to 0.28-->0.19 with elevated CPK likely mostly non- cardiac (i.e. skel muscle) -EKG without ischemic changes. echo without rwma. -hi risk for underlying obstructive CAD based on longstanding prior cig hx -should have risk-stratification with nuclear stress test prior to hospital discharge, once resp status is much more stable and pigtail catheter removed. HTN: -bp controlled here, off bp meds (not on bp meds at home) -initial elevations likely sec to acute sx's HPL: -cont home atorva regimen
[2017-02-17] MEDS: ASPIRIN COATED 81 MG TABLET.EC PO SCH (10:54)
[2017-02-17] MEDS: PANTOPRAZOLE 20 MG TABLET (FP) PO SCH (10:54)
[2017-02-17] MEDS: LORATADINE 10 MG TABLET PO SCH (10:54)
[2017-02-17] MEDS: BUDESONIDE/FORMETEROL FUMARATE 160/4.5 mcg INHALER IH SCH ×2 (10:55→22:05)
[2017-02-17] MEDS: methylPREDNISolone NA SUCC 40 MG/1 ML VIAL IVPB SCH ×2 (10:55→21:57)
[2017-02-17] MEDS: HEPARIN NA (PORCINE) 5,000 UNITS/ML 1ML VIAL SQ SCH ×2 (10:56→21:58)
--- NOTE | 2017-02-17 11:26 | PN ---
Progress Note, Physician History of Present Illness: pulmonary alert,sitting up in bed less dyspneic - Current Medication List Current Medications: Active Medications Acetaminophen (Tylenol -) 650 mg PO Q6H PRN PRN Reason: FEVER OR PAIN Albuterol/Ipratropium (Duoneb -) 1 amp NEB Q4H PRN PRN Reason: SHORTNESS OF BREATH Last Admin: 02/17/17 06:20 Dose: 1 amp Aspirin (Ecotrin -) 81 mg PO DAILY [facility] Last Admin: 02/17/17 10:54 Dose: 81 mg Atorvastatin Calcium (Lipitor -) 20 mg PO HS [facility] Last Admin: 02/16/17 20:11 Dose: 20 mg Budesonide/Formoterol Fumarate (Symbicort 160/4.5mcg -) 2 puff IH BID [facility] Last Admin: 02/17/17 10:55 Dose: 2 puff Bupropion HCl (Wellbutrin Xl -) 150 mg PO DAILY [facility] Last Admin: 02/17/17 10:55 Dose: 150 mg Heparin Sodium (Porcine) (Heparin -) 5,000 unit SQ BID [facility] Last Admin: 02/17/17 10:56 Dose: 5,000 unit Loratadine (Claritin -) 10 mg PO DAILY [facility] Last Admin: 02/17/17 10:54 Dose: 10 mg Methylprednisolone Sodium Succinate (Solu-Medrol -) 40 mg IVPB Q6H-IV [facility] Last Admin: 02/17/17 10:55 Dose: 40 mg Montelukast Sodium (Singulair -) 10 mg PO HS [facility] Last Admin: 02/16/17 20:10 Dose: 10 mg Non-Formulary Medication (Azelastine/Fluticasone [Dymista Nasal [place]]) 23 gm NS BID [facility] Non-Formulary Medication (Cyclosporine [Restasis]) 1 each OP BID [facility] Pantoprazole Sodium (Protonix -) 20 mg PO DAILY [facility] Last Admin: 02/17/17 10:54 Dose: 20 mg - Objective Vital Signs: Vital Signs Temperature 97.6 F 02/17/17 06:25 Pulse Rate 94 H 02/17/17 06:25 Respiratory Rate 20 02/17/17 06:25 Blood Pressure 127/86 02/17/17 06:25 O2 Sat by Pulse Oximetry (%) 95 02/16/17 21:00 Constitutional: Yes: Well Nourished, Calm Eyes: Yes: WNL HENT: Yes: WNL Neck: Yes: WNL Cardiovascular: Yes: Regular Rate and Rhythm, S1, S2 Respiratory: Yes: Wheezes (less wheezes bilaterally) Gastrointestinal: Yes: Normal Bowel Sounds, Soft Extremities: Yes: WNL Edema: No Labs: CBC, BMP 02/17/17 06:20 02/17/17 06:20 INR, PTT INR 0.96 (0.82-1.09) 02/14/17 07:45 Assessment/Plan Problem List - Problems (1) Pneumothorax Code(s): J93.9 - PNEUMOTHORAX, UNSPECIFIED Qualifiers: Pneumothorax type: other pneumothorax Qualified Code(s): J93.83 - Other pneumothorax; J93.8 - Other pneumothorax and air leak (2) COPD exacerbation Code(s): J44.1 - CHRONIC OBSTRUCTIVE PULMONARY DISEASE W (ACUTE) EXACERBATION (3) Chest pain Code(s): R07.9 - CHEST PAIN, UNSPECIFIED (4) Elevated troponin Code(s): R74.8 - ABNORMAL LEVELS OF OTHER SERUM ENZYMES Assessment/Plan Spontaneous Pneumothorax COPD Chronic Hypoxic Respiratory Failure MGUS +Troponins - continue pigtail catheter to low wall suction - supplemental O2 - continue iv steroids same dose - inhaled bronchodilators - DVT prophylaxis - analgesics - chest ct DR GRAHAM
--- NOTE | 2017-02-17 15:06 | PN ---
Progress Note (short form) - Note Progress Note: Pt states that yesterday she had SOB but when it was noticed that the left pigtail catheter was clamped. after it was unkinked she felt better after 10 minutes. Today, she feels better and just returned from ct scan where she had a chest scan. Vital Signs Period Temp Pulse Resp BP Sys/Stringer Pulse Ox Last 24 Hr 97 F-98.2 F 81-112 18-24 122-142/72-95 95 PE: Left chest: pigtail catheter in place. + AL, minimal drainage. Mild SQ emphysema. CBC, BMP 02/17/17 06:20 02/17/17 06:20 CXR: 02/16-increased SQ emphysema with small apical pntx CT scan: waiting official read A/P: 61 yo female with COPD/left pigtail catheter for pntx Spoke with Dr. Hernandez, will await CT scan results Continue CT to 10cm LOW wall suction, CXR in the am
--- NOTE | 2017-02-17 15:12 | PN ---
Progress Note (short form) - Note Progress Note: Thoracic Surgery: Reviewed CT. LLL is completely atelectatic. Recommend IR drain placed to open this up as she is very high risk for VATS. I believe this will ultimately heal her air-leak. If air-leak persists after well-placed tube, would then do doxy pleurodesis. Will d/w Dr. King.
[2017-02-17] MEDS: ACETAMINOPHEN 325 MG TABLET (FP) PO PRN (20:27)
[2017-02-17] MEDS: ATORVASTATIN CA 20 MG TABLET (FP) PO SCH (21:57)
[2017-02-17] MEDS: MONTELUKAST NA 10 MG TABLET PO SCH (21:58)
[2017-02-18] MEDS: methylPREDNISolone NA SUCC 40 MG/1 ML VIAL IVPB SCH ×5 (03:00→22:41)
[2017-02-18] MEDS: ACETAMINOPHEN 325 MG TABLET (FP) PO PRN ×3 (05:30→18:40)
[2017-02-18] MEDS: ALBUTEROL SO4 2.5/IPRATROPIUM 0.5 INH SOL 3 ML VIAL.NEB. NEB PRN (05:35)
[2017-02-18] MEDS: HEPARIN NA (PORCINE) 5,000 UNITS/ML 1ML VIAL SQ SCH ×2 (09:42→22:41)
--- NOTE | 2017-02-18 09:56 | PN ---
Progress Note, Physician Chief Complaint: still SOB and intermitent L CP; for chest tube placemnt per CT sx in IR by dr Cardenas - Current Medication List Current Medications: Active Medications Acetaminophen (Tylenol -) 650 mg PO Q6H PRN PRN Reason: FEVER OR PAIN Last Admin: 02/18/17 05:30 Dose: 650 mg Albuterol/Ipratropium (Duoneb -) 1 amp NEB Q4H PRN PRN Reason: SHORTNESS OF BREATH Last Admin: 02/18/17 05:35 Dose: 1 amp Aspirin (Ecotrin -) 81 mg PO DAILY [facility] Last Admin: 02/17/17 10:54 Dose: 81 mg Atorvastatin Calcium (Lipitor -) 20 mg PO HS [facility] Last Admin: 02/17/17 21:57 Dose: 20 mg Budesonide/Formoterol Fumarate (Symbicort 160/4.5mcg -) 2 puff IH BID [facility] Last Admin: 02/17/17 22:05 Dose: 2 puff Bupropion HCl (Wellbutrin Xl -) 150 mg PO DAILY [facility] Last Admin: 02/17/17 10:55 Dose: 150 mg Heparin Sodium (Porcine) (Heparin -) 5,000 unit SQ BID [facility] Last Admin: 02/18/17 09:42 Dose: Not Given Loratadine (Claritin -) 10 mg PO DAILY [facility] Last Admin: 02/17/17 10:54 Dose: 10 mg Methylprednisolone Sodium Succinate (Solu-Medrol -) 40 mg IVPB Q6H-IV [facility] Last Admin: 02/18/17 03:00 Dose: 40 mg Montelukast Sodium (Singulair -) 10 mg PO HS [facility] Last Admin: 02/17/17 21:58 Dose: 10 mg Non-Formulary Medication (Azelastine/Fluticasone [Dymista Nasal [place]]) 23 gm NS BID [facility] Non-Formulary Medication (Cyclosporine [Restasis]) 1 each OP BID [facility] Pantoprazole Sodium (Protonix -) 20 mg PO DAILY [facility] Last Admin: 02/17/17 10:54 Dose: 20 mg - Objective Vital Signs: Vital Signs Temperature 97.6 F 02/18/17 06:00 Pulse Rate 100 H 02/18/17 06:00 Respiratory Rate 22 02/18/17 06:00 Blood Pressure 146/96 02/18/17 06:00 O2 Sat by Pulse Oximetry (%) 96 02/17/17 21:00 Constitutional: Yes: No Distress, Calm Eyes: Yes: Conjunctiva Clear HENT: Yes: Atraumatic Neck: Yes: Supple Cardiovascular: Yes: Regular Rate and Rhythm Respiratory: Yes: Rales, Wheezes Gastrointestinal: Yes: Soft. No: Distention, Tenderness Genitourinary: No: CVA Tenderness - Left, CVA Tenderness - Right Musculoskeletal: No: Joint Stiffness, Joint Swelling Extremities: No: Cold, Cool, Cyanosis Edema: No Integumentary: No: Rash, Venous Stasis Changes Neurological: Yes: WNL, Alert, Oriented ...Motor Strength: WNL Psychiatric: Yes: WNL, Alert, Oriented. No: Agitated Labs: CBC, BMP 02/17/17 06:20 02/17/17 06:20 INR, PTT INR 0.96 (0.82-1.09) 02/14/17 07:45 - ....Imaging Other: Report Reviewed Assessment/Plan Spontaneous Pneumothorax after coughing spell at home COPD O2 dep Chronic Hypoxic Respiratory Failure +Troponins, high WBC on steroids - for second chest tube to be placed by IR, pulmonary and CT surgery f/u - iv solumedrol to 60 mg IVPB q6h - supplemental O2 - inhaled bronchodilators - DVT prophylaxis - analgesics - f/u labs prognosis guarded falls pfx d/w pt and staff
[2017-02-18] MEDS: PANTOPRAZOLE 20 MG TABLET (FP) PO SCH (10:19)
[2017-02-18] MEDS: LORATADINE 10 MG TABLET PO SCH (10:19)
[2017-02-18] MEDS ORDERED: PT OWN MED DRAWER 7, Y5N ONE (10:32)
--- NOTE | 2017-02-18 10:54 | PN ---
Progress Note (short form) - Note Progress Note: Chief Complaint: cp/sob S: sob a little better, + cough. No dizzy/palps/cp Current Medications Generic Name Dose Route Start Last Admin Trade Name Freq PRN Reason Stop Dose Admin Acetaminophen 650 mg 02/16/17 21:22 02/18/17 05:30 Tylenol - PO 650 mg Q6H PRN Administration FEVER OR PAIN Albuterol/Ipratropium 1 amp 02/14/17 13:23 02/18/17 05:35 Duoneb - NEB 1 amp Q4H PRN Administration SHORTNESS OF BREATH Aspirin 81 mg 02/15/17 10:00 02/17/17 10:54 Ecotrin - PO 81 mg DAILY [facility] Administration Atorvastatin Calcium 20 mg 02/15/17 22:00 02/17/17 21:57 Lipitor - PO 20 mg HS [facility] Administration Budesonide/Formoterol Fumarate 2 puff 02/14/17 22:00 02/17/17 22:05 Symbicort 160/4.5mcg - IH 2 puff BID [facility] Administration Bupropion HCl 150 mg 02/14/17 14:00 02/17/17 10:55 Wellbutrin Xl - PO 150 mg DAILY [facility] Administration Heparin Sodium (Porcine) 5,000 unit 02/14/17 22:00 02/18/17 09:42 Heparin - SQ Not Given BID [facility] Loratadine 10 mg 02/14/17 14:00 02/18/17 10:19 Claritin - PO 10 mg DAILY [facility] Administration Methylprednisolone Sodium Succinate 40 mg 02/16/17 15:00 02/18/17 10:19 Solu-Medrol - IVPB 40 mg Q6H-IV [facility] Administration Montelukast Sodium 10 mg 02/14/17 22:00 02/17/17 21:58 Singulair - PO 10 mg HS [facility] Administration Non-Formulary Medication 23 gm 02/14/17 22:00 Azelastine/Fluticasone [Dymista Nasal [place]] NS BID [facility] Non-Formulary Medication 1 each 02/14/17 13:15 Cyclosporine [Restasis] OP BID [facility] Pantoprazole Sodium 20 mg 02/14/17 14:00 02/18/17 10:19 Protonix - PO 20 mg DAILY [facility] Administration Vital Signs Period Temp Pulse Resp BP Sys/Stringer Pulse Ox Last 24 Hr 97.3 F-97.8 F 87-100 18-22 124-146/70-96 96 Constitutional: Yes: Well Nourished, No Distress Eyes: No: Sclera Icterus Respiratory: Yes: diffuse rhonchi/wheezes bl No: Accessory Muscle Use, Rales Gastrointestinal: Yes: Normal Bowel Sounds. No: Distention, Hepatomegaly, Palpable Mass, Tenderness Cardiovascular: Yes: Regular Rate and Rhythm JVD: No Heart Sounds: Yes: S1, S2. No: Gallop Murmur: No: Systolic Murmur, Diastolic Murmur Extremities: No: Cold, Cyanosis Edema: No Integumentary: No: Jaundice diaphoresis Neurological: Yes: Alert, Oriented (x3) Psychiatric: No: Agitated - Other Data Labs, Other Data: CBC, BMP 02/17/17 06:20 02/17/17 06:20 tele: SR/sinus tach ekg: NSR, normal axis, no path q's; no ST-T abnormality echo here: tds. nl lv/rv. valves not well seen but no sig ab. Assessment/Plan 61yo with h/o dchf, hl, COPD, chronic hypoxic respiratory failure on home O2, longtime prior cigs, GERD, osteoporosis, Essie's thyroiditis, MGUS who p/w CP/sob found to have ptx. spontaneous PTX, severe copd on home O2 and maintenance steroids with a.e. here: -s/p pigtail catheter insertion -still with sob, wheezing and ct shows persistent PTX, plans per CTS/IR -tx of copd per pulm elevated troponin: -trop rising slowly 0.18 to 0.28-->0.19 with elevated CPK likely mostly non- cardiac (i.e. skel muscle) -EKG without ischemic changes. echo without rwma. -hi risk for underlying obstructive CAD based on longstanding prior cig hx -should have risk-stratification with nuclear stress test prior to hospital discharge, once resp status is much more stable and pigtail catheter removed. HTN: -bp controlled here, off bp meds (not on bp meds at home) -initial elevations likely sec to acute sx's HPL: -cont home atorva
[2017-02-18] MEDS: ASPIRIN COATED 81 MG TABLET.EC PO SCH (12:48)
[2017-02-18] MEDS: BUDESONIDE/FORMETEROL FUMARATE 160/4.5 mcg INHALER IH SCH ×2 (12:48→22:41)
[2017-02-18] MEDS: oxyCODONE HCL 5 MG TABLET PO PRN ×2 (13:53→18:38)
--- NOTE | 2017-02-18 16:01 | PN ---
Progress Note (short form) - Note Progress Note: Feels a little better. Had a second Pleural decompression catheter inserted by IR. No CP at the insertion sites. CXR: Left small apical PTX. Intake & Output 02/15/17 02/16/17 02/17/17 02/18/17 23:59 23:59 23:59 23:59 Intake Total 50 650 600 140 Balance 50 650 600 140 Last Vital Signs Temp Pulse Resp BP Pulse Ox 98.2 F 102 H 24 151/95 96 02/18/17 14:16 02/18/17 14:16 02/18/17 14:16 02/18/17 14:16 02/17/17 21:00 Active Medications Acetaminophen (Tylenol -) 650 mg PO Q6H PRN PRN Reason: FEVER OR PAIN Last Admin: 02/18/17 13:55 Dose: 650 mg Acetaminophen (Tylenol -) 325 mg PO Q6H PRN PRN Reason: PAIN Albuterol/Ipratropium (Duoneb -) 1 amp NEB Q4H PRN PRN Reason: SHORTNESS OF BREATH Last Admin: 02/18/17 05:35 Dose: 1 amp Aspirin (Ecotrin -) 81 mg PO DAILY [facility] Last Admin: 02/18/17 12:48 Dose: 81 mg Atorvastatin Calcium (Lipitor -) 20 mg PO HS [facility] Last Admin: 02/17/17 21:57 Dose: 20 mg Budesonide/Formoterol Fumarate (Symbicort 160/4.5mcg -) 2 puff IH BID [facility] Last Admin: 02/18/17 12:48 Dose: 2 puff Bupropion HCl (Wellbutrin Xl -) 150 mg PO DAILY [facility] Last Admin: 02/18/17 12:49 Dose: 150 mg Heparin Sodium (Porcine) (Heparin -) 5,000 unit SQ BID [facility] Last Admin: 02/18/17 09:42 Dose: Not Given Loratadine (Claritin -) 10 mg PO DAILY [facility] Last Admin: 02/18/17 10:19 Dose: 10 mg Methylprednisolone Sodium Succinate (Solu-Medrol -) 40 mg IVPB Q6H-IV [facility] Last Admin: 02/18/17 14:16 Dose: 40 mg Montelukast Sodium (Singulair -) 10 mg PO HS [facility] Last Admin: 02/17/17 21:58 Dose: 10 mg Non-Formulary Medication (Azelastine/Fluticasone [Dymista Nasal [place]]) 23 gm NS BID [facility] Non-Formulary Medication (Cyclosporine [Restasis]) 1 each OP BID [facility] Oxycodone HCl (Roxicodone -) 5 mg PO Q6H PRN PRN Reason: PAIN Last Admin: 02/18/17 13:53 Dose: 5 mg Pantoprazole Sodium (Protonix -) 20 mg PO DAILY [facility] Last Admin: 02/18/17 10:19 Dose: 20 mg Constitutional: Yes: Awake and alert, NAD Eyes: Yes: WNL HENT: Yes: WNL Neck: Yes: WNL Cardiovascular: Yes: Regular Rate and Rhythm, S1, S2 Respiratory: Yes: Few scattered expiratory Wheezes, pigtail x 2 Left hemithorax -> minimal air leak Gastrointestinal: Yes: Normal Bowel Sounds, Soft Extremities: Yes: WNL Edema: No Labs: Assessment/Plan Problem List - Problems (1) Pneumothorax Code(s): J93.9 - PNEUMOTHORAX, UNSPECIFIED Qualifiers: Pneumothorax type: other pneumothorax Qualified Code(s): J93.83 - Other pneumothorax; J93.8 - Other pneumothorax and air leak (2) COPD exacerbation Code(s): J44.1 - CHRONIC OBSTRUCTIVE PULMONARY DISEASE W (ACUTE) EXACERBATION (3) Chest pain Code(s): R07.9 - CHEST PAIN, UNSPECIFIED (4) Elevated troponin Code(s): R74.8 - ABNORMAL LEVELS OF OTHER SERUM ENZYMES Assessment/Plan Spontaneous Pneumothorax COPD Chronic Hypoxic Respiratory Failure MGUS +Troponins - Pigtail catheter to low wall suction - supplemental O2 - continue iv steroids - inhaled bronchodilators - DVT prophylaxis - analgesics - Daily CXR Dr Arana
[2017-02-18] MEDS: MONTELUKAST NA 10 MG TABLET PO SCH (22:40)
[2017-02-18] MEDS: ATORVASTATIN CA 20 MG TABLET (FP) PO SCH (22:41)
[2017-02-19] MEDS: methylPREDNISolone NA SUCC 40 MG/1 ML VIAL IVPB SCH ×4 (03:06→21:06)
--- NOTE | 2017-02-19 05:54 | PN ---
Progress Note, Physician Chief Complaint: OOB to chair feels a little bit better s/p 2nd CT inserted to decompress lung - Current Medication List Current Medications: Active Medications Acetaminophen (Tylenol -) 650 mg PO Q6H PRN PRN Reason: FEVER OR PAIN Last Admin: 02/18/17 18:40 Dose: 650 mg Acetaminophen (Tylenol -) 325 mg PO Q6H PRN PRN Reason: PAIN Albuterol/Ipratropium (Duoneb -) 1 amp NEB Q4H PRN PRN Reason: SHORTNESS OF BREATH Last Admin: 02/18/17 05:35 Dose: 1 amp Aspirin (Ecotrin -) 81 mg PO DAILY [facility] Last Admin: 02/18/17 12:48 Dose: 81 mg Atorvastatin Calcium (Lipitor -) 20 mg PO [facility] Last Admin: 02/18/17 22:41 Dose: 20 mg Budesonide/Formoterol Fumarate (Symbicort 160/4.5mcg -) 2 puff IH BID [facility] Last Admin: 02/18/17 22:41 Dose: 2 puff Bupropion HCl (Wellbutrin Xl -) 150 mg PO DAILY [facility] Last Admin: 02/18/17 12:49 Dose: 150 mg Heparin Sodium (Porcine) (Heparin -) 5,000 unit SQ BID [facility] Last Admin: 02/18/17 22:41 Dose: 5,000 unit Loratadine (Claritin -) 10 mg PO DAILY [facility] Last Admin: 02/18/17 10:19 Dose: 10 mg Methylprednisolone Sodium Succinate (Solu-Medrol -) 40 mg IVPB Q6H-IV [facility] Last Admin: 02/19/17 03:06 Dose: 40 mg Montelukast Sodium (Singulair -) 10 mg PO HS [facility] Last Admin: 02/18/17 22:40 Dose: 10 mg Non-Formulary Medication (Azelastine/Fluticasone [Dymista Nasal [place]]) 23 gm NS BID [facility] Non-Formulary Medication (Cyclosporine [Restasis]) 1 each OP BID [facility] Oxycodone HCl (Roxicodone -) 5 mg PO Q6H PRN PRN Reason: PAIN Last Admin: 02/18/17 18:38 Dose: 5 mg Pantoprazole Sodium (Protonix -) 20 mg PO DAILY [facility] Last Admin: 02/18/17 10:19 Dose: 20 mg - Objective Vital Signs: Vital Signs Temperature 97.9 F 02/19/17 03:07 Pulse Rate 85 02/19/17 03:07 Respiratory Rate 20 02/19/17 03:07 Blood Pressure 152/93 02/19/17 03:07 O2 Sat by Pulse Oximetry (%) 96 02/18/17 21:00 Constitutional: Yes: No Distress, Calm Eyes: Yes: Conjunctiva Clear HENT: Yes: Atraumatic Neck: Yes: Supple Cardiovascular: Yes: Regular Rate and Rhythm Respiratory: Yes: Wheezes Gastrointestinal: Yes: Soft. No: Distention, Tenderness Genitourinary: No: CVA Tenderness - Left, CVA Tenderness - Right Musculoskeletal: No: Joint Stiffness, Joint Swelling Extremities: No: Cold, Cool, Cyanosis Edema: No Integumentary: No: Rash, Venous Stasis Changes Neurological: Yes: WNL, Alert, Oriented ...Motor Strength: WNL Psychiatric: Yes: WNL, Alert, Oriented. No: Agitated, Suicidal Ideation Labs: CBC, BMP 02/17/17 06:20 02/17/17 06:20 INR, PTT INR 0.96 (0.82-1.09) 02/14/17 07:45 - ....Imaging Other: Report Reviewed Assessment/Plan Spontaneous Pneumothorax after coughing spell at home COPD O2 dep Chronic Hypoxic Respiratory Failure +Troponins, f/u by cardiology high WBC on steroids - for second chest tube placed by IR; pulmonary and CT surgery f/u - iv solumedrol - supplemental O2 - inhaled bronchodilators - DVT prophylaxis - analgesics - f/u labs falls PFX d/w pt do not get OOB alone, ask for help if needs OOB prognosis guarded falls pfx d/w pt and staff
[2017-02-19] MEDS: ASPIRIN COATED 81 MG TABLET.EC PO SCH (10:03)
[2017-02-19] MEDS: PANTOPRAZOLE 20 MG TABLET (FP) PO SCH (10:03)
[2017-02-19] MEDS: oxyCODONE HCL 5 MG TABLET PO PRN ×2 (10:03→19:56)
[2017-02-19] MEDS: LORATADINE 10 MG TABLET PO SCH (10:03)
[2017-02-19] MEDS: HEPARIN NA (PORCINE) 5,000 UNITS/ML 1ML VIAL SQ SCH ×2 (10:03→21:07)
[2017-02-19] MEDS: ACETAMINOPHEN 325 MG TABLET (FP) PO PRN ×2 (10:04→19:59)
[2017-02-19] MEDS: BUDESONIDE/FORMETEROL FUMARATE 160/4.5 mcg INHALER IH SCH ×2 (10:09→22:04)
[2017-02-19] MEDS: ALBUTEROL SO4 2.5/IPRATROPIUM 0.5 INH SOL 3 ML VIAL.NEB. NEB PRN ×2 (10:40→20:05)
--- NOTE | 2017-02-19 11:11 | PN ---
Progress Note, Physician History of Present Illness: PULMONARY ALERT,LES DYSPNEIC,LESS CONGESTED - Current Medication List Current Medications: Active Medications Acetaminophen (Tylenol -) 650 mg PO Q6H PRN PRN Reason: FEVER OR PAIN Last Admin: 02/18/17 18:40 Dose: 650 mg Acetaminophen (Tylenol -) 325 mg PO Q6H PRN PRN Reason: PAIN Last Admin: 02/19/17 10:04 Dose: 325 mg Albuterol/Ipratropium (Duoneb -) 1 amp NEB Q4H PRN PRN Reason: SHORTNESS OF BREATH Last Admin: 02/18/17 05:35 Dose: 1 amp Aspirin (Ecotrin -) 81 mg PO DAILY [facility] Last Admin: 02/19/17 10:03 Dose: 81 mg Atorvastatin Calcium (Lipitor -) 20 mg PO HS [facility] Last Admin: 02/18/17 22:41 Dose: 20 mg Budesonide/Formoterol Fumarate (Symbicort 160/4.5mcg -) 2 puff IH BID [facility] Last Admin: 02/18/17 22:41 Dose: 2 puff Bupropion HCl (Wellbutrin Xl -) 150 mg PO DAILY [facility] Last Admin: 02/19/17 10:04 Dose: 150 mg Heparin Sodium (Porcine) (Heparin -) 5,000 unit SQ BID [facility] Last Admin: 02/19/17 10:03 Dose: 5,000 unit Loratadine (Claritin -) 10 mg PO DAILY [facility] Last Admin: 02/19/17 10:03 Dose: 10 mg Methylprednisolone Sodium Succinate (Solu-Medrol -) 40 mg IVPB Q6H-IV [facility] Last Admin: 02/19/17 10:02 Dose: 40 mg Montelukast Sodium (Singulair -) 10 mg PO HS [facility] Last Admin: 02/18/17 22:40 Dose: 10 mg Non-Formulary Medication (Azelastine/Fluticasone [Dymista Nasal [place]]) 23 gm NS BID [facility] Non-Formulary Medication (Cyclosporine [Restasis]) 1 each OP BID [facility] Oxycodone HCl (Roxicodone -) 5 mg PO Q6H PRN PRN Reason: PAIN Last Admin: 02/19/17 10:03 Dose: 5 mg Pantoprazole Sodium (Protonix -) 20 mg PO DAILY [facility] Last Admin: 02/19/17 10:03 Dose: 20 mg - Objective Vital Signs: Vital Signs Temperature 98.2 F 02/19/17 08:10 Pulse Rate 94 H 02/19/17 08:10 Respiratory Rate 16 02/19/17 08:10 Blood Pressure 148/88 02/19/17 08:10 O2 Sat by Pulse Oximetry (%) 96 02/18/17 21:00 Constitutional: Yes: Well Nourished, Calm Eyes: Yes: WNL HENT: Yes: WNL Neck: Yes: WNL Cardiovascular: Yes: Regular Rate and Rhythm, S1, S2 Respiratory: Yes: Wheezes (BILATERAL WHEEZES) Gastrointestinal: Yes: Normal Bowel Sounds, Soft Extremities: Yes: WNL Edema: No Labs: CBC, BMP 02/17/17 06:20 02/17/17 06:20 INR, PTT INR 0.96 (0.82-1.09) 02/14/17 07:45 Assessment/Plan Problem List - Problems (1) Pneumothorax Code(s): J93.9 - PNEUMOTHORAX, UNSPECIFIED Qualifiers: Pneumothorax type: other pneumothorax Qualified Code(s): J93.83 - Other pneumothorax; J93.8 - Other pneumothorax and air leak (2) COPD exacerbation Code(s): J44.1 - CHRONIC OBSTRUCTIVE PULMONARY DISEASE W (ACUTE) EXACERBATION (3) Chest pain Code(s): R07.9 - CHEST PAIN, UNSPECIFIED (4) Elevated troponin Code(s): R74.8 - ABNORMAL LEVELS OF OTHER SERUM ENZYMES Assessment/Plan Spontaneous Pneumothorax COPD Chronic Hypoxic Respiratory Failure MGUS +Troponins - continue pigtail catheter to low wall suction - supplemental O2 - iv steroids - inhaled bronchodilators - DVT prophylaxis - analgesics - thoracic f/u DR GRAHAM
--- NOTE | 2017-02-19 11:25 | PN ---
Progress Note (short form) - Note Progress Note: Chief Complaint: cp/sob S: sob a little better, + cough. No dizzy/palps/cp Current Medications Generic Name Dose Route Start Last Admin Trade Name Freq PRN Reason Stop Dose Admin Acetaminophen 650 mg 02/16/17 21:22 02/18/17 18:40 Tylenol - PO 650 mg Q6H PRN Administration FEVER OR PAIN Acetaminophen 325 mg 02/18/17 13:42 02/19/17 10:04 Tylenol - PO 325 mg Q6H PRN Administration PAIN Albuterol/Ipratropium 1 amp 02/14/17 13:23 02/18/17 05:35 Duoneb - NEB 1 amp Q4H PRN Administration SHORTNESS OF BREATH Aspirin 81 mg 02/15/17 10:00 02/19/17 10:03 Ecotrin - PO 81 mg DAILY [facility] Administration Atorvastatin Calcium 20 mg 02/15/17 22:00 02/18/17 22:41 Lipitor - PO 20 mg HS [facility] Administration Budesonide/Formoterol Fumarate 2 puff 02/14/17 22:00 02/18/17 22:41 Symbicort 160/4.5mcg - IH 2 puff BID [facility] Administration Bupropion HCl 150 mg 02/14/17 14:00 02/19/17 10:04 Wellbutrin Xl - PO 150 mg DAILY [facility] Administration Heparin Sodium (Porcine) 5,000 unit 02/14/17 22:00 02/19/17 10:03 Heparin - SQ 5,000 unit BID [facility] Administration Loratadine 10 mg 02/14/17 14:00 02/19/17 10:03 Claritin - PO 10 mg DAILY [facility] Administration Methylprednisolone Sodium Succinate 40 mg 02/16/17 15:00 02/19/17 10:02 Solu-Medrol - IVPB 40 mg Q6H-IV [facility] Administration Montelukast Sodium 10 mg 02/14/17 22:00 02/18/17 22:40 Singulair - PO 10 mg HS [facility] Administration Non-Formulary Medication 23 gm 02/14/17 22:00 Azelastine/Fluticasone [Dymista Nasal [place]] NS BID [facility] Non-Formulary Medication 1 each 02/14/17 13:15 Cyclosporine [Restasis] OP BID [facility] Oxycodone HCl 5 mg 02/18/17 13:42 02/19/17 10:03 Roxicodone - PO 5 mg Q6H PRN Administration PAIN Pantoprazole Sodium 20 mg 02/14/17 14:00 02/19/17 10:03 Protonix - PO 20 mg DAILY [facility] Administration Vital Signs Period Temp Pulse Resp BP Sys/Stringer Pulse Ox Last 24 Hr 97.7 F-98.2 F 85-102 16-24 131-152/70-95 96 Constitutional: Yes: Well Nourished, No Distress Eyes: No: Sclera Icterus Respiratory: Yes: diffuse rhonchi/wheezes bl No: Accessory Muscle Use, Rales Gastrointestinal: Yes: Normal Bowel Sounds. No: Distention, Hepatomegaly, Palpable Mass, Tenderness Cardiovascular: Yes: Regular Rate and Rhythm JVD: No Heart Sounds: Yes: S1, S2. No: Gallop Murmur: No: Systolic Murmur, Diastolic Murmur Extremities: No: Cold, Cyanosis Edema: No Integumentary: No: Jaundice diaphoresis Neurological: Yes: Alert, Oriented (x3) Psychiatric: No: Agitated - Other Data Labs, Other Data: CBC, BMP 02/17/17 06:20 02/17/17 06:20 tele: SR/sinus tach ekg: NSR, normal axis, no path q's; no ST-T abnormality echo here: tds. nl lv/rv. valves not well seen but no sig ab. Assessment/Plan 61yo with h/o dchf, hl, COPD, chronic hypoxic respiratory failure on home O2, longtime prior cigs, GERD, osteoporosis, Essie's thyroiditis, MGUS who p/w CP/sob found to have ptx. spontaneous PTX, severe copd on home O2 and maintenance steroids with a.e. here: -s/p pigtail catheter insertion x2 -tx of copd per pulm elevated troponin: -trop elevation here, 0.18 to 0.28-->0.19 with elevated CPK likely mostly non- cardiac (i.e. skel muscle) -EKG without ischemic changes. echo without rwma. -hi risk for underlying obstructive CAD based on longstanding prior cig hx -should have risk-stratification with nuclear stress test prior to hospital discharge, once resp status is much more stable and pigtail catheters removed. HTN: -bp controlled here, off bp meds (not on bp meds at home) -initial elevations likely sec to acute sx's HPL: -cont home atorva
[2017-02-19] MEDS: MONTELUKAST NA 10 MG TABLET PO SCH (21:06)
[2017-02-19] MEDS: ATORVASTATIN CA 20 MG TABLET (FP) PO SCH (21:06)
[2017-02-20] MEDS: methylPREDNISolone NA SUCC 40 MG/1 ML VIAL IVPB SCH ×5 (02:24→22:27)
[2017-02-20] MEDS: oxyCODONE HCL 5 MG TABLET PO PRN ×2 (05:48→14:35)
[2017-02-20] MEDS: ACETAMINOPHEN 325 MG TABLET (FP) PO PRN ×2 (05:58→14:35)
[2017-02-20 07:39] LABS: MCHC 31.8 g/dl (32.0-36.0); MEAN CELL VOLUME 75.2 fl (80-96); MEAN PLT VOLUME 8.2 fl (7.5-11.1); PLATELET COUNT 343 K/MM3 (134-434); RDW 18.6 % (11.6-15.6); WHITE BLOOD COUNT 21.4 K/mm3 (4.0-10.0)
--- NOTE | 2017-02-20 08:42 | PN ---
Progress Note, Physician History of Present Illness: PULMONARY ALERT,STILL CONGESTED,+COUGH.PT STILL WITH SMALL PTX CHEST TUBES ON LOW WALL SUCTION - Current Medication List Current Medications: Active Medications Acetaminophen (Tylenol -) 650 mg PO Q6H PRN PRN Reason: FEVER OR PAIN Last Admin: 02/20/17 05:58 Dose: 650 mg Acetaminophen (Tylenol -) 325 mg PO Q6H PRN PRN Reason: PAIN Last Admin: 02/19/17 10:04 Dose: 325 mg Albuterol/Ipratropium (Duoneb -) 1 amp NEB Q4H PRN PRN Reason: SHORTNESS OF BREATH Last Admin: 02/19/17 20:05 Dose: 1 amp Aspirin (Ecotrin -) 81 mg PO DAILY [facility] Last Admin: 02/19/17 10:03 Dose: 81 mg Atorvastatin Calcium (Lipitor -) 20 mg PO HS [facility] Last Admin: 02/19/17 21:06 Dose: 20 mg Budesonide/Formoterol Fumarate (Symbicort 160/4.5mcg -) 2 puff IH BID [facility] Last Admin: 02/19/17 10:09 Dose: 2 puff Bupropion HCl (Wellbutrin Xl -) 150 mg PO DAILY [facility] Last Admin: 02/19/17 10:04 Dose: 150 mg Heparin Sodium (Porcine) (Heparin -) 5,000 unit SQ BID [facility] Last Admin: 02/19/17 21:07 Dose: 5,000 unit Loratadine (Claritin -) 10 mg PO DAILY [facility] Last Admin: 02/19/17 10:03 Dose: 10 mg Methylprednisolone Sodium Succinate (Solu-Medrol -) 40 mg IVPB Q6H-IV [facility] Last Admin: 02/20/17 02:24 Dose: 40 mg Montelukast Sodium (Singulair -) 10 mg PO HS [facility] Last Admin: 02/19/17 21:06 Dose: 10 mg Non-Formulary Medication (Azelastine/Fluticasone [Dymista Nasal [place]]) 23 gm NS BID [facility] Non-Formulary Medication (Cyclosporine [Restasis]) 1 each OP BID [facility] Oxycodone HCl (Roxicodone -) 5 mg PO Q6H PRN PRN Reason: PAIN Last Admin: 02/20/17 05:48 Dose: 5 mg Pantoprazole Sodium (Protonix -) 20 mg PO DAILY [facility] Last Admin: 02/19/17 10:03 Dose: 20 mg - Objective Vital Signs: Vital Signs Temperature 98.7 F 02/20/17 05:44 Pulse Rate 90 02/20/17 05:44 Respiratory Rate 18 02/20/17 05:44 Blood Pressure 146/83 02/20/17 05:44 O2 Sat by Pulse Oximetry (%) 97 02/19/17 20:00 Constitutional: Yes: Well Nourished, Calm Eyes: Yes: WNL HENT: Yes: WNL Neck: Yes: WNL Cardiovascular: Yes: Regular Rate and Rhythm, S1, S2 Respiratory: Yes: Wheezes (BILATERAL WHEEZES) Gastrointestinal: Yes: Normal Bowel Sounds, Soft Extremities: Yes: WNL Edema: No Labs: CBC, BMP 02/20/17 05:35 INR, PTT INR 0.96 (0.82-1.09) 02/14/17 07:45 Assessment/Plan Problem List - Problems (1) Pneumothorax Code(s): J93.9 - PNEUMOTHORAX, UNSPECIFIED Qualifiers: Pneumothorax type: other pneumothorax Qualified Code(s): J93.83 - Other pneumothorax; J93.8 - Other pneumothorax and air leak (2) COPD exacerbation Code(s): J44.1 - CHRONIC OBSTRUCTIVE PULMONARY DISEASE W (ACUTE) EXACERBATION (3) Chest pain Code(s): R07.9 - CHEST PAIN, UNSPECIFIED (4) Elevated troponin Code(s): R74.8 - ABNORMAL LEVELS OF OTHER SERUM ENZYMES Assessment/Plan Spontaneous Pneumothorax COPD Chronic Hypoxic Respiratory Failure MGUS +Troponins - continue pigtail catheter to low wall suction - supplemental O2 - iv steroids - inhaled bronchodilators - DVT prophylaxis - analgesics - thoracic f/u - chest x-ray DR GRAHAM
[2017-02-20] MEDS ORDERED: PT OWN MED DRAWER 7, Y5N ONE (08:59)
[2017-02-20] MEDS: PANTOPRAZOLE 20 MG TABLET (FP) PO SCH (09:30)
[2017-02-20] MEDS: HEPARIN NA (PORCINE) 5,000 UNITS/ML 1ML VIAL SQ SCH ×2 (09:30→21:03)
[2017-02-20] MEDS: ASPIRIN COATED 81 MG TABLET.EC PO SCH (09:30)
[2017-02-20] MEDS: LORATADINE 10 MG TABLET PO SCH (09:30)
[2017-02-20] MEDS: BUDESONIDE/FORMETEROL FUMARATE 160/4.5 mcg INHALER IH SCH ×2 (09:31→21:03)
[2017-02-20 10:24] LABS: PLATELET ESTIMATE ADEQUATE (NORMAL)
--- NOTE | 2017-02-20 10:49 | PN ---
Progress Note, Physician Chief Complaint: OOB to chair no new c/o; occasional pain at site of CT insertion; less SOB - Current Medication List Current Medications: Active Medications Acetaminophen (Tylenol -) 650 mg PO Q6H PRN PRN Reason: FEVER OR PAIN Last Admin: 02/20/17 05:58 Dose: 650 mg Acetaminophen (Tylenol -) 325 mg PO Q6H PRN PRN Reason: PAIN Last Admin: 02/19/17 10:04 Dose: 325 mg Albuterol/Ipratropium (Duoneb -) 1 amp NEB Q4H PRN PRN Reason: SHORTNESS OF BREATH Last Admin: 02/19/17 20:05 Dose: 1 amp Aspirin (Ecotrin -) 81 mg PO DAILY [facility] Last Admin: 02/20/17 09:30 Dose: 81 mg Atorvastatin Calcium (Lipitor -) 20 mg PO HS [facility] Last Admin: 02/19/17 21:06 Dose: 20 mg Budesonide/Formoterol Fumarate (Symbicort 160/4.5mcg -) 2 puff IH BID [facility] Last Admin: 02/20/17 09:31 Dose: 2 puff Bupropion HCl (Wellbutrin Xl -) 150 mg PO DAILY [facility] Last Admin: 02/20/17 09:31 Dose: 150 mg Heparin Sodium (Porcine) (Heparin -) 5,000 unit SQ BID [facility] Last Admin: 02/20/17 09:30 Dose: 5,000 unit Loratadine (Claritin -) 10 mg PO DAILY [facility] Last Admin: 02/20/17 09:30 Dose: 10 mg Methylprednisolone Sodium Succinate (Solu-Medrol -) 40 mg IVPB Q6H-IV [facility] Last Admin: 02/20/17 09:30 Dose: 40 mg Montelukast Sodium (Singulair -) 10 mg PO HS [facility] Last Admin: 02/19/17 21:06 Dose: 10 mg Non-Formulary Medication (Azelastine/Fluticasone [Dymista Nasal [place]]) 23 gm NS BID [facility] Non-Formulary Medication (Cyclosporine [Restasis]) 1 each OP BID [facility] Oxycodone HCl (Roxicodone -) 5 mg PO Q6H PRN PRN Reason: PAIN Last Admin: 02/20/17 05:48 Dose: 5 mg Pantoprazole Sodium (Protonix -) 20 mg PO DAILY [facility] Last Admin: 05/20/17 09:30 Dose: 20 mg - Objective Vital Signs: Vital Signs Temperature 98.2 F 02/20/17 08:05 Pulse Rate 88 02/20/17 08:05 Respiratory Rate 16 02/20/17 08:05 Blood Pressure 136/78 02/20/17 08:05 O2 Sat by Pulse Oximetry (%) 97 02/19/17 20:00 Constitutional: Yes: No Distress, Calm Eyes: Yes: Conjunctiva Clear HENT: Yes: Atraumatic Neck: Yes: Supple Cardiovascular: Yes: Regular Rate and Rhythm Respiratory: Yes: Wheezes Gastrointestinal: Yes: Soft. No: Distention, Tenderness Genitourinary: No: CVA Tenderness - Left, CVA Tenderness - Right Musculoskeletal: No: Joint Stiffness, Joint Swelling Extremities: No: Cold, Cool, Cyanosis Edema: No Peripheral Pulses WNL: Yes Integumentary: No: Rash, Venous Stasis Changes Neurological: Yes: WNL, Alert, Oriented ...Motor Strength: WNL Psychiatric: Yes: WNL, Alert, Oriented. No: Agitated, Suicidal Ideation Labs: CBC, BMP 02/20/17 05:35 02/20/17 05:35 INR, PTT INR 0.96 (0.82-1.09) 02/14/17 07:45 - ....Imaging Other: Report Reviewed Assessment/Plan Spontaneous Pneumothorax after coughing spell at home COPD O2 dep Chronic Hypoxic Respiratory Failure +Troponins, f/u by cardiology high WBC on steroids - for second chest tube placed by IR; pulmonary and CT surgery f/u - iv solumedrol - supplemental O2 - inhaled bronchodilators - DVT prophylaxis - analgesics - f/u labs falls PFX d/w pt do not get OOB alone, ask for help if needs OOB prognosis guarded falls pfx d/w pt and staff
[2017-02-20 10:50] LABS: ALBUMIN 3.3 g/dl (3.4-5.0); ALK PHOS 49 U/L (45-117); ANION GAP 12 (8-16); BILIRUBIN,TOTAL 0.2 mg/dL (0.2-1.0); CALCIUM 9.2 mg/dL (8.5-10.1); CO2 29 mmol/L (21-32); COCKROFT - GAULT 89.3605; CREATININE 0.8 mg/dL (0.55-1.02); GLUCOSE,RANDOM 130 mg/dL (74-106); SGOT/AST 18 U/L (15-37); SGPT/ALT 33 U/L (12-78); TOT PROT 6.8 g/dl (6.4-8.2)
--- NOTE | 2017-02-20 10:59 | PN ---
Progress Note, Physician History of Present Illness: No CV complaints Tele NSR/ST at 120s - Current Medication List Current Medications: Active Medications Acetaminophen (Tylenol -) 650 mg PO Q6H PRN PRN Reason: FEVER OR PAIN Last Admin: 02/20/17 05:58 Dose: 650 mg Acetaminophen (Tylenol -) 325 mg PO Q6H PRN PRN Reason: PAIN Last Admin: 02/19/17 10:04 Dose: 325 mg Albuterol/Ipratropium (Duoneb -) 1 amp NEB Q4H PRN PRN Reason: SHORTNESS OF BREATH Last Admin: 02/19/17 20:05 Dose: 1 amp Aspirin (Ecotrin -) 81 mg PO DAILY [facility] Last Admin: 02/20/17 09:30 Dose: 81 mg Atorvastatin Calcium (Lipitor -) 20 mg PO HS [facility] Last Admin: 02/19/17 21:06 Dose: 20 mg Budesonide/Formoterol Fumarate (Symbicort 160/4.5mcg -) 2 puff IH BID [facility] Last Admin: 02/20/17 09:31 Dose: 2 puff Bupropion HCl (Wellbutrin Xl -) 150 mg PO DAILY [facility] Last Admin: 02/20/17 09:31 Dose: 150 mg Heparin Sodium (Porcine) (Heparin -) 5,000 unit SQ BID [facility] Last Admin: 02/20/17 09:30 Dose: 5,000 unit Loratadine (Claritin -) 10 mg PO DAILY [facility] Last Admin: 02/20/17 09:30 Dose: 10 mg Methylprednisolone Sodium Succinate (Solu-Medrol -) 40 mg IVPB Q6H-IV [facility] Last Admin: 02/20/17 09:30 Dose: 40 mg Montelukast Sodium (Singulair -) 10 mg PO HS [facility] Last Admin: 02/19/17 21:06 Dose: 10 mg Non-Formulary Medication (Azelastine/Fluticasone [Dymista Nasal [place]]) 23 gm NS BID [facility] Non-Formulary Medication (Cyclosporine [Restasis]) 1 each OP BID [facility] Oxycodone HCl (Roxicodone -) 5 mg PO Q6H PRN PRN Reason: PAIN Last Admin: 02/20/17 05:48 Dose: 5 mg Pantoprazole Sodium (Protonix -) 20 mg PO DAILY [facility] Last Admin: 02/20/17 09:30 Dose: 20 mg - Objective Vital Signs: Vital Signs Temperature 98.2 F 02/20/17 08:05 Pulse Rate 88 02/20/17 08:05 Respiratory Rate 16 02/20/17 08:05 Blood Pressure 136/78 02/20/17 08:05 O2 Sat by Pulse Oximetry (%) 97 02/19/17 20:00 Constitutional: Yes: Calm Eyes: Yes: Conjunctiva Clear HENT: Yes: WNL Neck: Yes: WNL Cardiovascular: Yes: Regular Rate and Rhythm, Other (CT in place) Gastrointestinal: Yes: WNL Extremities: Yes: WNL Edema: No Labs: CBC, BMP 02/20/17 05:35 02/20/17 05:35 INR, PTT INR 0.96 (0.82-1.09) 02/14/17 07:45 Assessment/Plan 61yo with h/o dchf, hl, COPD, chronic hypoxic respiratory failure on home O2, longtime prior cigs, GERD, osteoporosis, Essie's thyroiditis, MGUS who p/w CP/sob found to have ptx. spontaneous PTX, severe copd on home O2 and maintenance steroids with a.e. here: -s/p pigtail catheter insertion x2 -tx of copd per pulm elevated troponin: -trop elevation here, 0.18 to 0.28-->0.19 with elevated CPK likely mostly non- cardiac (i.e. skel muscle) -EKG without ischemic changes. echo without rwma. -hi risk for underlying obstructive CAD based on longstanding prior cig hx -should have risk-stratification with nuclear stress test prior to hospital discharge, once resp status is much more stable and pigtail catheters removed. HTN: -bp controlled here, off bp meds (not on bp meds at home) -initial elevations likely sec to acute sx's HPL: -cont home atorva
[2017-02-20] MEDS: MONTELUKAST NA 10 MG TABLET PO SCH (21:02)
[2017-02-20] MEDS: ATORVASTATIN CA 20 MG TABLET (FP) PO SCH (21:02)
[2017-02-20] MEDS: ALBUTEROL SO4 2.5/IPRATROPIUM 0.5 INH SOL 3 ML VIAL.NEB. NEB PRN (21:45)
[2017-02-21] MEDS: methylPREDNISolone NA SUCC 40 MG/1 ML VIAL IVPB SCH ×3 (02:10→17:24)
[2017-02-21] MEDS ORDERED: ACETAMINOPHEN 325 MG TABLET (FP) PO PRN (02:13)
[2017-02-21] MEDS: ALBUTEROL SO4 2.5/IPRATROPIUM 0.5 INH SOL 3 ML VIAL.NEB. NEB PRN ×2 (06:53→22:20)
--- NOTE | 2017-02-21 09:12 | PN ---
Progress Note, Physician History of Present Illness: pulmonary alert,less dyspneic,+increased left apical ptx. - Current Medication List Current Medications: Active Medications Acetaminophen (Tylenol -) 650 mg PO Q6H PRN PRN Reason: FEVER OR PAIN Last Admin: 02/21/17 00:00 Dose: 650 mg Acetaminophen (Tylenol -) 325 mg PO Q6H PRN PRN Reason: PAIN Last Admin: 02/20/17 14:35 Dose: 325 mg Acetaminophen (Tylenol -) 650 mg PO Q4H PRN PRN Reason: FEVER OR PAIN Albuterol/Ipratropium (Duoneb -) 1 amp NEB Q4H PRN PRN Reason: SHORTNESS OF BREATH Last Admin: 02/21/17 06:53 Dose: 1 amp Aspirin (Ecotrin -) 81 mg PO DAILY [facility] Last Admin: 02/20/17 09:30 Dose: 81 mg Atorvastatin Calcium (Lipitor -) 20 mg PO HS [facility] Last Admin: 02/20/17 21:02 Dose: 20 mg Budesonide/Formoterol Fumarate (Symbicort 160/4.5mcg -) 2 puff IH BID [facility] Last Admin: 02/20/17 21:03 Dose: 2 puff Bupropion HCl (Wellbutrin Xl -) 150 mg PO DAILY [facility] Last Admin: 02/20/17 09:31 Dose: 150 mg Heparin Sodium (Porcine) (Heparin -) 5,000 unit SQ BID [facility] Last Admin: 02/20/17 21:03 Dose: 5,000 unit Loratadine (Claritin -) 10 mg PO DAILY [facility] Last Admin: 02/20/17 09:30 Dose: 10 mg Methylprednisolone Sodium Succinate (Solu-Medrol -) 40 mg IVPB Q6H-IV [facility] Last Admin: 02/21/17 02:10 Dose: 40 mg Montelukast Sodium (Singulair -) 10 mg PO HS [facility] Last Admin: 02/20/17 21:02 Dose: 10 mg Non-Formulary Medication (Azelastine/Fluticasone [Dymista Nasal [place]]) 23 gm NS BID [facility] Non-Formulary Medication (Cyclosporine [Restasis]) 1 each OP BID [facility] Oxycodone HCl (Roxicodone -) 5 mg PO Q6H PRN PRN Reason: PAIN Last Admin: 02/21/17 00:00 Dose: 5 mg Pantoprazole Sodium (Protonix -) 20 mg PO DAILY [facility] Last Admin: 02/20/17 09:30 Dose: 20 mg - Objective Vital Signs: Vital Signs Temperature 98.1 F 02/21/17 06:03 Pulse Rate 87 02/21/17 06:03 Respiratory Rate 16 02/21/17 06:03 Blood Pressure 142/82 02/21/17 06:03 O2 Sat by Pulse Oximetry (%) 96 02/20/17 20:02 Constitutional: Yes: Well Nourished, Calm Eyes: Yes: WNL HENT: Yes: WNL Neck: Yes: WNL Cardiovascular: Yes: Regular Rate and Rhythm, S1, S2 Respiratory: Yes: Wheezes (xenia wheezes) Gastrointestinal: Yes: Normal Bowel Sounds, Soft Extremities: Yes: WNL Edema: No Labs: CBC, BMP 02/20/17 05:35 02/20/17 05:35 INR, PTT INR 0.96 (0.82-1.09) 02/14/17 07:45 Assessment/Plan Problem List - Problems (1) Pneumothorax Code(s): J93.9 - PNEUMOTHORAX, UNSPECIFIED Qualifiers: Pneumothorax type: other pneumothorax Qualified Code(s): J93.83 - Other pneumothorax; J93.8 - Other pneumothorax and air leak (2) COPD exacerbation Code(s): J44.1 - CHRONIC OBSTRUCTIVE PULMONARY DISEASE W (ACUTE) EXACERBATION (3) Chest pain Code(s): R07.9 - CHEST PAIN, UNSPECIFIED (4) Elevated troponin Code(s): R74.8 - ABNORMAL LEVELS OF OTHER SERUM ENZYMES Assessment/Plan Spontaneous Pneumothorax COPD Chronic Hypoxic Respiratory Failure MGUS +Troponins - continue pigtail catheter to low wall suction - supplemental O2 - steroid taper - inhaled bronchodilators - DVT prophylaxis - analgesics - thoracic f/u - chest x-ray DR GRAHAM
[2017-02-21] MEDS ORDERED: PT OWN MED DRAWER 7, Y5N ONE (09:21)
[2017-02-21] MEDS: ASPIRIN COATED 81 MG TABLET.EC PO SCH (09:28)
[2017-02-21] MEDS: HEPARIN NA (PORCINE) 5,000 UNITS/ML 1ML VIAL SQ SCH ×2 (09:28→21:17)
[2017-02-21] MEDS: LORATADINE 10 MG TABLET PO SCH (09:28)
[2017-02-21] MEDS: PANTOPRAZOLE 20 MG TABLET (FP) PO SCH (09:29)
[2017-02-21] MEDS: BUDESONIDE/FORMETEROL FUMARATE 160/4.5 mcg INHALER IH SCH ×2 (09:29→21:17)
--- NOTE | 2017-02-21 11:57 | PN ---
Progress Note (short form) - Note Progress Note: Thoracic Surgery: CXR reviewed. Unclear if lower lobe is expanded. Would continue suction and get CT chest tomorrow. If does not expand would do VATS with bronch, possible doxycycline, this week and would need medical clearance and is likely high risk due to cardiac disease.
--- NOTE | 2017-02-21 11:58 | PN ---
Progress Note, Physician History of Present Illness: No CV complaints Some pleuritic CP Tele: ST 120s - Current Medication List Current Medications: Active Medications Acetaminophen (Tylenol -) 650 mg PO Q6H PRN PRN Reason: FEVER OR PAIN Last Admin: 02/21/17 00:00 Dose: 650 mg Acetaminophen (Tylenol -) 325 mg PO Q6H PRN PRN Reason: PAIN Last Admin: 02/20/17 14:35 Dose: 325 mg Acetaminophen (Tylenol -) 650 mg PO Q4H PRN PRN Reason: FEVER OR PAIN Albuterol/Ipratropium (Duoneb -) 1 amp NEB Q4H PRN PRN Reason: SHORTNESS OF BREATH Last Admin: 02/21/17 06:53 Dose: 1 amp Aspirin (Ecotrin -) 81 mg PO DAILY [facility] Last Admin: 02/21/17 09:28 Dose: 81 mg Atorvastatin Calcium (Lipitor -) 20 mg PO HS [facility] Last Admin: 02/20/17 21:02 Dose: 20 mg Budesonide/Formoterol Fumarate (Symbicort 160/4.5mcg -) 2 puff IH BID [facility] Last Admin: 02/21/17 09:29 Dose: 2 puff Bupropion HCl (Wellbutrin Xl -) 150 mg PO DAILY [facility] Last Admin: 02/21/17 09:29 Dose: 150 mg Heparin Sodium (Porcine) (Heparin -) 5,000 unit SQ BID [facility] Last Admin: 02/21/17 09:28 Dose: 5,000 unit Loratadine (Claritin -) 10 mg PO DAILY [facility] Last Admin: 02/21/17 09:28 Dose: 10 mg Methylprednisolone Sodium Succinate (Solu-Medrol -) 40 mg IVPB Q8H-IV [facility] Last Admin: 02/21/17 09:28 Dose: 40 mg Montelukast Sodium (Singulair -) 10 mg PO HS [facility] Last Admin: 02/20/17 21:02 Dose: 10 mg Non-Formulary Medication (Azelastine/Fluticasone [Dymista Nasal [place]]) 23 gm NS BID [facility] Non-Formulary Medication (Cyclosporine [Restasis]) 1 each OP BID [facility] Oxycodone HCl (Roxicodone -) 5 mg PO Q6H PRN PRN Reason: PAIN Last Admin: 02/21/17 00:00 Dose: 5 mg Pantoprazole Sodium (Protonix -) 20 mg PO DAILY [facility] Last Admin: 02/21/17 09:29 Dose: 20 mg - Objective Vital Signs: Vital Signs Temperature 98.6 F 02/21/17 10:00 Pulse Rate 101 H 02/21/17 10:00 Respiratory Rate 24 02/21/17 10:00 Blood Pressure 144/85 02/21/17 10:00 O2 Sat by Pulse Oximetry (%) 97 02/21/17 09:00 Constitutional: Yes: No Distress Eyes: Yes: WNL HENT: Yes: WNL Neck: Yes: WNL Cardiovascular: Yes: Tachycardia Respiratory: Yes: Other (Decreased BS left base, CT in place) Musculoskeletal: Yes: WNL Edema: No Labs: CBC, BMP 02/20/17 05:35 02/20/17 05:35 INR, PTT INR 0.96 (0.82-1.09) 02/14/17 07:45 Assessment/Plan 61yo with h/o dchf, hl, COPD, chronic hypoxic respiratory failure on home O2, longtime prior cigs, GERD, osteoporosis, Essie's thyroiditis, MGUS who p/w CP/sob found to have ptx. spontaneous PTX, severe copd on home O2 and maintenance steroids with a.e. here: -s/p pigtail catheter insertion x2 -tx of copd per pulm elevated troponin: -trop elevation here, 0.18 to 0.28-->0.19 with elevated CPK likely mostly non- cardiac (i.e. skel muscle) -EKG without ischemic changes. echo without rwma. -hi risk for underlying obstructive CAD based on longstanding prior cig hx -should have risk-stratification with nuclear stress test prior to hospital discharge, once resp status is much more stable and pigtail catheters removed. -On ASA and statin HTN: -bp controlled here, off bp meds (not on bp meds at home) -initial elevations likely sec to acute sx's HPL: -cont home atorva
--- NOTE | 2017-02-21 12:12 | PN ---
Progress Note, Physician Chief Complaint: no new c/o; CT in; less sob; occ L CP at surgical site; had BM - Current Medication List Current Medications: Active Medications Acetaminophen (Tylenol -) 650 mg PO Q6H PRN PRN Reason: FEVER OR PAIN Last Admin: 02/21/17 00:00 Dose: 650 mg Acetaminophen (Tylenol -) 325 mg PO Q6H PRN PRN Reason: PAIN Last Admin: 02/20/17 14:35 Dose: 325 mg Acetaminophen (Tylenol -) 650 mg PO Q4H PRN PRN Reason: FEVER OR PAIN Albuterol/Ipratropium (Duoneb -) 1 amp NEB Q4H PRN PRN Reason: SHORTNESS OF BREATH Last Admin: 02/21/17 06:53 Dose: 1 amp Aspirin (Ecotrin -) 81 mg PO DAILY [facility] Last Admin: 02/21/17 09:28 Dose: 81 mg Atorvastatin Calcium (Lipitor -) 20 mg PO HS [facility] Last Admin: 02/20/17 21:02 Dose: 20 mg Budesonide/Formoterol Fumarate (Symbicort 160/4.5mcg -) 2 puff IH BID [facility] Last Admin: 02/21/17 09:29 Dose: 2 puff Bupropion HCl (Wellbutrin Xl -) 150 mg PO DAILY [facility] Last Admin: 02/21/17 09:29 Dose: 150 mg Heparin Sodium (Porcine) (Heparin -) 5,000 unit SQ BID [facility] Last Admin: 02/21/17 09:28 Dose: 5,000 unit Loratadine (Claritin -) 10 mg PO DAILY [facility] Last Admin: 02/21/17 09:28 Dose: 10 mg Methylprednisolone Sodium Succinate (Solu-Medrol -) 40 mg IVPB Q8H-IV [facility] Last Admin: 02/21/17 09:28 Dose: 40 mg Montelukast Sodium (Singulair -) 10 mg PO HS [facility] Last Admin: 02/20/17 21:02 Dose: 10 mg Non-Formulary Medication (Azelastine/Fluticasone [Dymista Nasal [place]]) 23 gm NS BID [facility] Non-Formulary Medication (Cyclosporine [Restasis]) 1 each OP BID [facility] Oxycodone HCl (Roxicodone -) 5 mg PO Q6H PRN PRN Reason: PAIN Last Admin: 02/21/17 00:00 Dose: 5 mg Pantoprazole Sodium (Protonix -) 20 mg PO DAILY [facility] Last Admin: 02/21/17 09:29 Dose: 20 mg - Objective Vital Signs: Vital Signs Temperature 98.6 F 02/21/17 10:00 Pulse Rate 101 H 02/21/17 10:00 Respiratory Rate 24 02/21/17 10:00 Blood Pressure 144/85 02/21/17 10:00 O2 Sat by Pulse Oximetry (%) 97 02/21/17 09:00 Constitutional: Yes: No Distress, Calm Eyes: Yes: Conjunctiva Clear HENT: Yes: Atraumatic Neck: Yes: Supple Cardiovascular: Yes: Regular Rate and Rhythm Respiratory: Yes: Wheezes Gastrointestinal: Yes: Soft. No: Distention, Tenderness Genitourinary: No: CVA Tenderness - Left, CVA Tenderness - Right Musculoskeletal: No: Joint Stiffness, Joint Swelling Extremities: No: Cold, Cool, Cyanosis Edema: No Integumentary: No: Rash, Venous Stasis Changes Neurological: Yes: WNL, Alert, Oriented ...Motor Strength: WNL Psychiatric: Yes: WNL, Alert, Oriented. No: Agitated, Suicidal Ideation Labs: CBC, BMP 02/20/17 05:35 02/20/17 05:35 INR, PTT INR 0.96 (0.82-1.09) 02/14/17 07:45 - ....Imaging Other: Report Reviewed Assessment/Plan Spontaneous Pneumothorax after coughing spell at home COPD O2 dep Chronic Hypoxic Respiratory Failure +Troponins, f/u by cardiology high WBC on steroids - s/p second chest tube placed by IR; pulmonary and CT surgery f/u - will check chest CT in am - if lung not expanded might need surgery - cardiac and pulm eval preop - high risk surgery - iv solumedrol - supplemental O2 - inhaled bronchodilators - DVT prophylaxis - analgesics - f/u labs falls PFX d/w pt do not get OOB alone, ask for help if needs OOB prognosis guarded falls pfx d/w pt and staff
[2017-02-21] MEDS: oxyCODONE HCL 5 MG TABLET PO PRN ×2 (17:24)
[2017-02-21] MEDS: ACETAMINOPHEN 325 MG TABLET (FP) PO PRN ×2 (17:25)
[2017-02-21] MEDS: MONTELUKAST NA 10 MG TABLET PO SCH (21:18)
[2017-02-21] MEDS: ATORVASTATIN CA 20 MG TABLET (FP) PO SCH (21:18)
[2017-02-22] MEDS: methylPREDNISolone NA SUCC 40 MG/1 ML VIAL IVPB SCH ×3 (00:59→18:32)
[2017-02-22] MEDS: ALBUTEROL SO4 2.5/IPRATROPIUM 0.5 INH SOL 3 ML VIAL.NEB. NEB PRN (06:48)
[2017-02-22] MEDS ORDERED: PT OWN MED DRAWER 7, Y5N ONE (09:03)
[2017-02-22] MEDS: ASPIRIN COATED 81 MG TABLET.EC PO SCH (09:13)
[2017-02-22] MEDS: PANTOPRAZOLE 20 MG TABLET (FP) PO SCH (09:13)
[2017-02-22] MEDS: LORATADINE 10 MG TABLET PO SCH (09:13)
[2017-02-22] MEDS: BUDESONIDE/FORMETEROL FUMARATE 160/4.5 mcg INHALER IH SCH ×2 (09:14→21:54)
--- NOTE | 2017-02-22 09:30 | PN ---
Progress Note, Physician Chief Complaint: ptx History of Present Illness: ongoing positional L pectoral cp when moves or twists; sob stable feels "bubbles" under skin of L chest wall no palpit, edema + cigs hx - Current Medication List Current Medications: Active Medications Acetaminophen (Tylenol -) 650 mg PO Q6H PRN PRN Reason: FEVER OR PAIN Last Admin: 02/21/17 00:00 Dose: 650 mg Acetaminophen (Tylenol -) 325 mg PO Q6H PRN PRN Reason: PAIN Last Admin: 02/21/17 17:25 Dose: 325 mg Acetaminophen (Tylenol -) 650 mg PO Q4H PRN PRN Reason: FEVER OR PAIN Albuterol/Ipratropium (Duoneb -) 1 amp NEB Q4H PRN PRN Reason: SHORTNESS OF BREATH Last Admin: 02/22/17 06:48 Dose: 1 amp Aspirin (Ecotrin -) 81 mg PO DAILY [facility] Last Admin: 02/22/17 09:13 Dose: 81 mg Atorvastatin Calcium (Lipitor -) 20 mg PO [facility] Last Admin: 02/21/17 21:18 Dose: 20 mg Budesonide/Formoterol Fumarate (Symbicort 160/4.5mcg -) 2 puff IH BID [facility] Last Admin: 02/22/17 09:14 Dose: 2 puff Bupropion HCl (Wellbutrin Xl -) 150 mg PO DAILY [facility] Last Admin: 02/22/17 09:14 Dose: 150 mg Loratadine (Claritin -) 10 mg PO DAILY [facility] Last Admin: 02/22/17 09:13 Dose: 10 mg Methylprednisolone Sodium Succinate (Solu-Medrol -) 40 mg IVPB Q8H-IV [facility] Last Admin: 02/22/17 09:14 Dose: 40 mg Montelukast Sodium (Singulair -) 10 mg PO HS [facility] Last Admin: 02/21/17 21:18 Dose: 10 mg Non-Formulary Medication (Azelastine/Fluticasone [Dymista Nasal [place]]) 23 gm NS BID [facility] Non-Formulary Medication (Cyclosporine [Restasis]) 1 each OP BID [facility] Oxycodone HCl (Roxicodone -) 5 mg PO Q6H PRN PRN Reason: PAIN Last Admin: 02/21/17 17:24 Dose: 5 mg Pantoprazole Sodium (Protonix -) 20 mg PO DAILY [facility] Last Admin: 02/22/17 09:13 Dose: 20 mg - Objective Vital Signs: Vital Signs Temperature 98.2 F 02/22/17 06:00 Pulse Rate 88 02/22/17 06:00 Respiratory Rate 16 02/22/17 06:00 Blood Pressure 128/82 02/22/17 06:00 O2 Sat by Pulse Oximetry (%) 98 02/21/17 21:00 Constitutional: Yes: No Distress, Calm, Obese Eyes: No: Sclera Icterus HENT: No: Nasal Congestion Cardiovascular: Yes: Regular Rate and Rhythm, S1, S2, Other (PMI non diplaced). No: JVD, Gallop, Murmur Respiratory: Yes: CTA Bilaterally. No: Accessory Muscle Use, Rales, Wheezes Gastrointestinal: Yes: Normal Bowel Sounds, Soft. No: Tenderness Musculoskeletal: Yes: Other (No kyphosis) Extremities: No: Cold Edema: No Integumentary: No: Jaundice Neurological: Yes: Alert, Oriented (x3) Psychiatric: No: Agitated Labs: CBC, BMP 02/20/17 05:35 02/20/17 05:35 INR, PTT INR 0.96 (0.82-1.09) 02/14/17 07:45 - ....Imaging EKG: Other (tele: NSR) Assessment/Plan Echo here: tds. nl lv/rv. valves not well seen but no sig ab. Assessment/Plan 61yo with h/o dchf, hl, COPD, chronic hypoxic respiratory failure on home O2, longtime prior cigs, GERD, osteoporosis, Essie's thyroiditis, MGUS who p/w CP/sob found to have ptx. spontaneous PTX, severe copd on home O2 and maintenance steroids with a.e. here: -s/p pigtail catheter insertion x2 -thoracic surgery following: for possible VATS if lung does not re-expand -+subcutaneous emphysema on exam 02/22--pulm following as well elevated troponin: -trop elevation here, 0.18 to 0.28-->0.19 with elevated CPK likely mostly non- cardiac (i.e. skel muscle) -EKG without ischemic changes. echo without rwma. -hi risk for underlying obstructive CAD based on longstanding prior cig hx -cont ASA, statin -should have risk-stratification with nuclear stress test--will do tomorrow ( dobutamine MPI), also for preop risk stratification for possible VATS (per thoracic surgery note) atyp CP: -sx's are clearly m-skel in description HTN: -bp controlled here, off bp meds (not on bp meds at home) -initial elevations likely sec to acute sx's HPL: -cont home atorva preop CV eval: -RCRI = 0, probably decreased functional capacity -for intermediate risk thoracic surgery -possible small NSTEMI on admit, though equivocal hx -will do nuclear perfusion stress test to risk-stratify NO NEED FOR CONTINUED TELEMETRY MONITORING GIVEN NO ACTIVE CV SX'S
--- NOTE | 2017-02-22 11:45 | PN ---
Progress Note, Physician History of Present Illness: pulmonary alert,oob-chair,less dyspneic,+sub-cutaneous emphysema - Current Medication List Current Medications: Active Medications Acetaminophen (Tylenol -) 650 mg PO Q6H PRN PRN Reason: FEVER OR PAIN Last Admin: 02/21/17 00:00 Dose: 650 mg Acetaminophen (Tylenol -) 325 mg PO Q6H PRN PRN Reason: PAIN Last Admin: 02/21/17 17:25 Dose: 325 mg Acetaminophen (Tylenol -) 650 mg PO Q4H PRN PRN Reason: FEVER OR PAIN Albuterol/Ipratropium (Duoneb -) 1 amp NEB Q4H PRN PRN Reason: SHORTNESS OF BREATH Last Admin: 02/22/17 06:48 Dose: 1 amp Aspirin (Ecotrin -) 81 mg PO DAILY [facility] Last Admin: 02/22/17 09:13 Dose: 81 mg Atorvastatin Calcium (Lipitor -) 20 mg PO [facility] Last Admin: 02/21/17 21:18 Dose: 20 mg Budesonide/Formoterol Fumarate (Symbicort 160/4.5mcg -) 2 puff IH BID [facility] Last Admin: 02/22/17 09:14 Dose: 2 puff Bupropion HCl (Wellbutrin Xl -) 150 mg PO DAILY [facility] Last Admin: 02/22/17 09:14 Dose: 150 mg Loratadine (Claritin -) 10 mg PO DAILY [facility] Last Admin: 02/22/17 09:13 Dose: 10 mg Methylprednisolone Sodium Succinate (Solu-Medrol -) 40 mg IVPB Q8H-IV [facility] Last Admin: 02/22/17 09:14 Dose: 40 mg Montelukast Sodium (Singulair -) 10 mg PO HS [facility] Last Admin: 02/21/17 21:18 Dose: 10 mg Non-Formulary Medication (Azelastine/Fluticasone [Dymista Nasal [place]]) 23 gm NS BID [facility] Non-Formulary Medication (Cyclosporine [Restasis]) 1 each OP BID [facility] Oxycodone HCl (Roxicodone -) 5 mg PO Q6H PRN PRN Reason: PAIN Last Admin: 02/21/17 17:24 Dose: 5 mg Pantoprazole Sodium (Protonix -) 20 mg PO DAILY [facility] Last Admin: 02/22/17 09:13 Dose: 20 mg - Objective Vital Signs: Vital Signs Temperature 98.4 F 02/22/17 10:00 Pulse Rate 87 02/22/17 10:00 Respiratory Rate 22 02/22/17 10:00 Blood Pressure 140/83 02/22/17 10:00 O2 Sat by Pulse Oximetry (%) 98 02/21/17 21:00 Constitutional: Yes: Well Nourished, Calm Eyes: Yes: WNL HENT: Yes: WNL Neck: Yes: WNL Cardiovascular: Yes: Regular Rate and Rhythm, S1, S2 Respiratory: Yes: Rhonchi (less xenia wheezes and rhonchi,+increased subcutaneous emphysema anteriorly), Wheezes Gastrointestinal: Yes: Normal Bowel Sounds, Soft Extremities: Yes: WNL Edema: Yes Labs: CBC, BMP 02/20/17 05:35 02/20/17 05:35 INR, PTT INR 0.96 (0.82-1.09) 02/14/17 07:45 Assessment/Plan Problem List - Problems (1) Pneumothorax Code(s): J93.9 - PNEUMOTHORAX, UNSPECIFIED Qualifiers: Pneumothorax type: other pneumothorax Qualified Code(s): J93.83 - Other pneumothorax; J93.8 - Other pneumothorax and air leak (2) COPD exacerbation Code(s): J44.1 - CHRONIC OBSTRUCTIVE PULMONARY DISEASE W (ACUTE) EXACERBATION (3) Chest pain Code(s): R07.9 - CHEST PAIN, UNSPECIFIED (4) Elevated troponin Code(s): R74.8 - ABNORMAL LEVELS OF OTHER SERUM ENZYMES Assessment/Plan Spontaneous Pneumothorax COPD Chronic Hypoxic Respiratory Failure MGUS +Troponins - continue pigtail catheter to low wall suction - supplemental O2 - steroid taper - inhaled bronchodilators - DVT prophylaxis - analgesics - chest ct today,may require insertion large bore chest tube,possible VAT DR GRAHAM
--- NOTE | 2017-02-22 17:07 | PN ---
Progress Note, Physician Chief Complaint: feels better less SOB, still with some intermitent CP at the surgical sites but better - Current Medication List Current Medications: Active Medications Acetaminophen (Tylenol -) 650 mg PO Q6H PRN PRN Reason: FEVER OR PAIN Last Admin: 02/21/17 00:00 Dose: 650 mg Acetaminophen (Tylenol -) 325 mg PO Q6H PRN PRN Reason: PAIN Last Admin: 02/21/17 17:25 Dose: 325 mg Acetaminophen (Tylenol -) 650 mg PO Q4H PRN PRN Reason: FEVER OR PAIN Aspirin (Ecotrin -) 81 mg PO DAILY [facility] Last Admin: 02/22/17 09:13 Dose: 81 mg Atorvastatin Calcium (Lipitor -) 20 mg PO HS [facility] Last Admin: 02/21/17 21:18 Dose: 20 mg Budesonide/Formoterol Fumarate (Symbicort 160/4.5mcg -) 2 puff IH BID [facility] Last Admin: 02/22/17 09:14 Dose: 2 puff Bupropion HCl (Wellbutrin Xl -) 150 mg PO DAILY [facility] Last Admin: 02/22/17 09:14 Dose: 150 mg Loratadine (Claritin -) 10 mg PO DAILY [facility] Last Admin: 02/22/17 09:13 Dose: 10 mg Methylprednisolone Sodium Succinate (Solu-Medrol -) 40 mg IVPB Q8H-IV [facility] Last Admin: 02/22/17 09:14 Dose: 40 mg Montelukast Sodium (Singulair -) 10 mg PO HS [facility] Last Admin: 02/21/17 21:18 Dose: 10 mg Non-Formulary Medication (Azelastine/Fluticasone [Dymista Nasal [place]]) 23 gm NS BID [facility] Non-Formulary Medication (Cyclosporine [Restasis]) 1 each OP BID [facility] Oxycodone HCl (Roxicodone -) 5 mg PO Q6H PRN PRN Reason: PAIN Last Admin: 02/21/17 17:24 Dose: 5 mg Pantoprazole Sodium (Protonix -) 20 mg PO DAILY [facility] Last Admin: 02/22/17 09:13 Dose: 20 mg - Objective Vital Signs: Vital Signs Temperature 99.6 F 02/22/17 14:39 Pulse Rate 89 02/22/17 14:39 Respiratory Rate 24 02/22/17 14:39 Blood Pressure 144/95 02/22/17 14:39 O2 Sat by Pulse Oximetry (%) 97 02/22/17 09:00 Constitutional: Yes: No Distress, Calm Eyes: Yes: Conjunctiva Clear HENT: Yes: Atraumatic Neck: Yes: Supple Cardiovascular: Yes: Regular Rate and Rhythm Respiratory: Yes: Wheezes (less) Gastrointestinal: Yes: Soft. No: Distention, Tenderness Genitourinary: No: CVA Tenderness - Left, CVA Tenderness - Right Musculoskeletal: No: Joint Stiffness, Joint Swelling Extremities: No: Cold, Cool Edema: No Integumentary: No: Rash, Venous Stasis Changes Neurological: Yes: WNL, Alert, Oriented ...Motor Strength: WNL Psychiatric: Yes: WNL, Alert, Oriented. No: Agitated, Suicidal Ideation Labs: CBC, BMP 02/20/17 05:35 02/20/17 05:35 INR, PTT INR 0.96 (0.82-1.09) 02/14/17 07:45 - ....Imaging Other: Report Reviewed Assessment/Plan Spontaneous Pneumothorax after coughing spell at home COPD O2 dep Chronic Hypoxic Respiratory Failure +Troponins, f/u by cardiology high WBC on steroids - s/p second chest tube placed by IR; pulmonary and CT surgery f/u - will check chest CT in am - if lung not expanded might need surgery - cardiac and pulm eval preop - high risk surgery - iv solumedrol - supplemental O2 - inhaled bronchodilators - DVT prophylaxis - analgesics - f/u labs falls PFX d/w pt do not get OOB alone, ask for help if needs OOB prognosis guarded falls pfx d/w pt and staff
[2017-02-22] MEDS: oxyCODONE HCL 5 MG TABLET PO PRN (18:32)
[2017-02-22] MEDS: ACETAMINOPHEN 325 MG TABLET (FP) PO PRN (18:32)
[2017-02-22] MEDS: ATORVASTATIN CA 20 MG TABLET (FP) PO SCH (21:54)
[2017-02-22] MEDS: MONTELUKAST NA 10 MG TABLET PO SCH (21:54)
[2017-02-23] MEDS: methylPREDNISolone NA SUCC 40 MG/1 ML VIAL IVPB SCH ×4 (01:47→22:33)
[2017-02-23 07:17] LABS: BASOPHIL 0.2 % (0-2.0); MCH 23.9 pg (25.7-33.7); MCHC 32.2 g/dl (32.0-36.0); MEAN CELL VOLUME 74.4 fl (80-96); MEAN PLT VOLUME 7.9 fl (7.5-11.1); NEUTROPHILS 90.7 % (42.8-82.8); PLATELET COUNT 316 K/MM3 (134-434); RDW 18.5 % (11.6-15.6); WHITE BLOOD COUNT 23.2 K/mm3 (4.0-10.0)
[2017-02-23 08:32] LABS: ALBUMIN 3.2 g/dl (3.4-5.0); ALK PHOS 39 U/L (45-117); ANION GAP 8 (8-16); BILIRUBIN,TOTAL 0.3 mg/dL (0.2-1.0); CALCIUM 8.6 mg/dL (8.5-10.1); CO2 31 mmol/L (21-32); CREATININE 0.6 mg/dL (0.55-1.02); GLUCOSE,RANDOM 131 mg/dL (74-106); SGOT/AST 20 U/L (15-37); SGPT/ALT 37 U/L (12-78); TOT PROT 6.2 g/dl (6.4-8.2)
[2017-02-23] MEDS ORDERED: DOBUTAMINE HCL 100,000 MCG in DEXTROSE 5%-WATER - 92 ML IVPB ONE (10:00)
--- NOTE | 2017-02-23 11:02 | PN ---
Progress Note (short form) - Note Progress Note: PULMONARY Denies shortness of breath or chest pain. Repeat CT chest showing good re- expansion of left lung. Last Vital Signs Temp Pulse Resp BP Pulse Ox 97.8 F 84 20 133/83 97 02/23/17 09:00 02/23/17 09:00 02/23/17 09:00 02/23/17 09:00 02/22/17 21:00 Gen: NAD at rest Heart: RRR Lung: distant but equal breath sounds, scattered wheeze Abd: soft, nontender Ext: no edema CBC, BMP 02/23/17 06:15 02/23/17 06:15 Active Medications Acetaminophen (Tylenol -) 650 mg PO Q6H PRN PRN Reason: FEVER OR PAIN Last Admin: 02/21/17 00:00 Dose: 650 mg Acetaminophen (Tylenol -) 325 mg PO Q6H PRN PRN Reason: PAIN Last Admin: 02/22/17 18:32 Dose: 325 mg Acetaminophen (Tylenol -) 650 mg PO Q4H PRN PRN Reason: FEVER OR PAIN Aspirin (Ecotrin -) 81 mg PO DAILY [facility] Last Admin: 02/22/17 09:13 Dose: 81 mg Atorvastatin Calcium (Lipitor -) 20 mg PO [facility] Last Admin: 02/22/17 21:54 Dose: 20 mg Budesonide/Formoterol Fumarate (Symbicort 160/4.5mcg -) 2 puff IH BID [facility] Last Admin: 02/22/17 21:54 Dose: 2 puff Bupropion HCl (Wellbutrin Xl -) 150 mg PO DAILY [facility] Last Admin: 02/22/17 09:14 Dose: 150 mg Dobutamine HCl 100,000 mcg/ (Dextrose) 100 mls @ 22.99 mls/hr IVPB ONCE ONE; 5 MCG/KG/MIN PRN Reason: Protocol Stop: 02/23/17 14:20 Loratadine (Claritin -) 10 mg PO DAILY [facility] Last Admin: 02/22/17 09:13 Dose: 10 mg Methylprednisolone Sodium Succinate (Solu-Medrol -) 40 mg IVPB Q8H-IV [facility] Last Admin: 02/23/17 01:47 Dose: 40 mg Montelukast Sodium (Singulair -) 10 mg PO HS [facility] Last Admin: 02/22/17 21:54 Dose: 10 mg Non-Formulary Medication (Azelastine/Fluticasone [Dymista Nasal [place]]) 23 gm NS BID [facility] Non-Formulary Medication (Cyclosporine [Restasis]) 1 each OP BID [facility] Oxycodone HCl (Roxicodone -) 5 mg PO Q6H PRN PRN Reason: PAIN Last Admin: 02/22/17 18:32 Dose: 5 mg Pantoprazole Sodium (Protonix -) 20 mg PO DAILY [facility] Last Admin: 02/22/17 09:13 Dose: 20 mg A/P Spontaneous Pneumothorax COPD Chronic Hypoxic Respiratory Failure MGUS +Troponins - will clamp chest tubes today after stress test and repeat CXR after 1 hour - supplemental O2 - will decrease medrol to q12h dosing - inhaled bronchodilators - DVT prophylaxis - analgesics Problem List - Problems (1) Pneumothorax Code(s): J93.9 - PNEUMOTHORAX, UNSPECIFIED Qualifiers: Pneumothorax type: other pneumothorax Qualified Code(s): J93.83 - Other pneumothorax; J93.8 - Other pneumothorax and air leak (2) COPD exacerbation Code(s): J44.1 - CHRONIC OBSTRUCTIVE PULMONARY DISEASE W (ACUTE) EXACERBATION (3) Chest pain Code(s): R07.9 - CHEST PAIN, UNSPECIFIED (4) Elevated troponin Code(s): R74.8 - ABNORMAL LEVELS OF OTHER SERUM ENZYMES
[2017-02-23] MEDS: LORATADINE 10 MG TABLET PO SCH (12:36)
[2017-02-23] MEDS: PANTOPRAZOLE 20 MG TABLET (FP) PO SCH (12:36)
[2017-02-23] MEDS: ASPIRIN COATED 81 MG TABLET.EC PO SCH (12:36)
[2017-02-23] MEDS: BUDESONIDE/FORMETEROL FUMARATE 160/4.5 mcg INHALER IH SCH ×2 (12:38→21:46)
--- NOTE | 2017-02-23 14:58 | PN ---
Progress Note (short form) - Note Progress Note: Thoracic Surgery: Pt seen and examined while in Cardiac Stress test area. About to undergo stress. Tube on water seal. Did not tidal and did not show air-leak. However, LLL well-expanded on CT yesterday. After stress, recommend clamping tubes and cxr while clamped today and tomorrow. Possibly remove tubes tomorrow sequentially.
[2017-02-23] MEDS ORDERED: ALBUTEROL SO4 0.083% IH SOL 2.5 MG/3 ML VIAL.NEB. NEB PRN (18:05)
[2017-02-23] MEDS ORDERED: PT OWN MED DRAWER 7, Y5N ONE (20:47)
[2017-02-23] MEDS: ATORVASTATIN CA 20 MG TABLET (FP) PO SCH (21:45)
[2017-02-23] MEDS: MONTELUKAST NA 10 MG TABLET PO SCH (21:45)
[2017-02-23] MEDS: ALBUTEROL SO4 2.5/IPRATROPIUM 0.5 INH SOL 3 ML VIAL.NEB. NEB SCH (22:00)
--- NOTE | 2017-02-23 22:34 | PN ---
Progress Note, Physician Chief Complaint: OOB to chair NAD feels better but tired - Current Medication List Current Medications: Active Medications Acetaminophen (Tylenol -) 650 mg PO Q6H PRN PRN Reason: FEVER OR PAIN Last Admin: 02/21/17 00:00 Dose: 650 mg Acetaminophen (Tylenol -) 325 mg PO Q6H PRN PRN Reason: PAIN Last Admin: 02/22/17 18:32 Dose: 325 mg Acetaminophen (Tylenol -) 650 mg PO Q4H PRN PRN Reason: FEVER OR PAIN Albuterol Sulfate (Ventolin 0.083% Nebulizer Soln -) 1 amp NEB Q4H PRN PRN Reason: SHORT OF BREATH/WHEEZING Last Admin: 02/23/17 18:15 Dose: 1 amp Albuterol/Ipratropium (Duoneb -) 1 amp NEB TIDR [facility] Last Admin: 02/23/17 22:00 Dose: 1 amp Aspirin (Ecotrin -) 81 mg PO DAILY [facility] Last Admin: 02/23/17 12:36 Dose: 81 mg Atorvastatin Calcium (Lipitor -) 20 mg PO [facility] Last Admin: 02/23/17 21:45 Dose: 20 mg Budesonide/Formoterol Fumarate (Symbicort 160/4.5mcg -) 2 puff IH BID [facility] Last Admin: 02/23/17 21:46 Dose: 2 puff Bupropion HCl (Wellbutrin Xl -) 150 mg PO DAILY [facility] Last Admin: 02/23/17 12:36 Dose: 150 mg Loratadine (Claritin -) 10 mg PO DAILY [facility] Last Admin: 02/23/17 12:36 Dose: 10 mg Methylprednisolone Sodium Succinate (Solu-Medrol -) 40 mg IVPB Q12H [facility] Last Admin: 02/23/17 12:35 Dose: 40 mg Montelukast Sodium (Singulair -) 10 mg PO HS [facility] Last Admin: 02/23/17 21:45 Dose: 10 mg Non-Formulary Medication (Azelastine/Fluticasone [Dymista Nasal [place]]) 23 gm NS BID [facility] Non-Formulary Medication (Cyclosporine [Restasis]) 1 each OP BID [facility] Oxycodone HCl (Roxicodone -) 5 mg PO Q6H PRN PRN Reason: PAIN Last Admin: 02/22/17 18:32 Dose: 5 mg Pantoprazole Sodium (Protonix -) 20 mg PO DAILY [facility] Last Admin: 02/23/17 12:36 Dose: 20 mg - Objective Vital Signs: Vital Signs Temperature 98.3 F 02/23/17 19:59 Pulse Rate 95 H 02/23/17 19:59 Respiratory Rate 21 02/23/17 20:36 Blood Pressure 114/89 02/23/17 19:59 O2 Sat by Pulse Oximetry (%) 97 02/23/17 20:36 Constitutional: Yes: No Distress, Calm Eyes: Yes: Conjunctiva Clear HENT: Yes: Atraumatic Neck: Yes: Supple Cardiovascular: Yes: Regular Rate and Rhythm Respiratory: Yes: Wheezes (less) Gastrointestinal: Yes: Soft. No: Distention, Tenderness Musculoskeletal: No: Joint Stiffness, Joint Swelling Extremities: No: Cold, Cool Edema: No Peripheral Pulses WNL: Yes Integumentary: No: Rash, Venous Stasis Changes Neurological: Yes: WNL, Alert, Oriented ...Motor Strength: WNL Psychiatric: Yes: WNL, Alert, Oriented. No: Agitated, Suicidal Ideation Labs: CBC, BMP 02/23/17 06:15 02/23/17 06:15 INR, PTT INR 0.96 (0.82-1.09) 02/14/17 07:45 - ....Imaging Other: Report Reviewed Assessment/Plan Spontaneous Pneumothorax after coughing spell at home COPD O2 dep Chronic Hypoxic Respiratory Failure +Troponins, f/u by cardiology high WBC on steroids - s/p second chest tube placed by IR; pulmonary and CT surgery f/u - chest CT lung expanded well - cardiac and pulm f/u - iv solumedrol - supplemental O2 - inhaled bronchodilators - DVT prophylaxis - analgesics - f/u labs falls PFX d/w pt do not get OOB alone, ask for help if needs OOB prognosis guarded falls pfx d/w pt and staff
[2017-02-24] MEDS: ALBUTEROL SO4 2.5/IPRATROPIUM 0.5 INH SOL 3 ML VIAL.NEB. NEB SCH ×3 (06:42→22:29)
[2017-02-24 06:56] LABS: BASOPHIL 0.1 % (0-2.0); MCH 23.9 pg (25.7-33.7); MCHC 31.9 g/dl (32.0-36.0); MEAN PLT VOLUME 7.8 fl (7.5-11.1); NEUTROPHILS 87.8 % (42.8-82.8); PLATELET COUNT 342 K/MM3 (134-434); RDW 18.5 % (11.6-15.6); WHITE BLOOD COUNT 22.8 K/mm3 (4.0-10.0)
[2017-02-24 07:14] LABS: ALBUMIN 3.3 g/dl (3.4-5.0); ALK PHOS 43 U/L (45-117); ANION GAP 8 (8-16); BILIRUBIN,TOTAL 0.3 mg/dL (0.2-1.0); CALCIUM 8.9 mg/dL (8.5-10.1); CO2 33 mmol/L (21-32); COCKROFT - GAULT 89.3605; CREATININE 0.8 mg/dL (0.55-1.02); GLUCOSE,RANDOM 131 mg/dL (74-106); SGOT/AST 20 U/L (15-37); SGPT/ALT 41 U/L (12-78); TOT PROT 6.3 g/dl (6.4-8.2)
--- NOTE | 2017-02-24 11:01 | PN ---
Progress Note (short form) - Note Progress Note: Thoracic Surgery: CXR stable. Will sequentially pull tubes (have asked PA's to remove one at a time).
[2017-02-24] MEDS: ASPIRIN COATED 81 MG TABLET.EC PO SCH (11:05)
[2017-02-24] MEDS: PANTOPRAZOLE 20 MG TABLET (FP) PO SCH (11:05)
[2017-02-24] MEDS: methylPREDNISolone NA SUCC 40 MG/1 ML VIAL IVPB SCH ×2 (11:05→21:36)
[2017-02-24] MEDS: LORATADINE 10 MG TABLET PO SCH (11:05)
[2017-02-24] MEDS: BUDESONIDE/FORMETEROL FUMARATE 160/4.5 mcg INHALER IH SCH ×2 (11:06→21:37)
--- NOTE | 2017-02-24 11:38 | PN ---
Progress Note, Physician Chief Complaint: oral thrush (on IV steroids); no CP/SOB did not take opiates 1 chest tube removed; - Current Medication List Current Medications: Active Medications Acetaminophen (Tylenol -) 650 mg PO Q6H PRN PRN Reason: FEVER OR PAIN Last Admin: 02/21/17 00:00 Dose: 650 mg Acetaminophen (Tylenol -) 325 mg PO Q6H PRN PRN Reason: PAIN Last Admin: 02/22/17 18:32 Dose: 325 mg Acetaminophen (Tylenol -) 650 mg PO Q4H PRN PRN Reason: FEVER OR PAIN Albuterol Sulfate (Ventolin 0.083% Nebulizer Soln -) 1 amp NEB Q4H PRN PRN Reason: SHORT OF BREATH/WHEEZING Last Admin: 02/23/17 18:15 Dose: 1 amp Albuterol/Ipratropium (Duoneb -) 1 amp NEB TIDR [facility] Last Admin: 02/24/17 06:42 Dose: 1 amp Aspirin (Ecotrin -) 81 mg PO DAILY [facility] Last Admin: 02/24/17 11:05 Dose: 81 mg Atorvastatin Calcium (Lipitor -) 20 mg PO [facility] Last Admin: 02/23/17 21:45 Dose: 20 mg Budesonide/Formoterol Fumarate (Symbicort 160/4.5mcg -) 2 puff IH BID [facility] Last Admin: 02/24/17 11:06 Dose: 2 puff Bupropion HCl (Wellbutrin Xl -) 150 mg PO DAILY [facility] Last Admin: 02/24/17 11:05 Dose: 150 mg Loratadine (Claritin -) 10 mg PO DAILY [facility] Last Admin: 02/24/17 11:05 Dose: 10 mg Methylprednisolone Sodium Succinate (Solu-Medrol -) 40 mg IVPB Q12H [facility] Last Admin: 02/24/17 11:05 Dose: 40 mg Montelukast Sodium (Singulair -) 10 mg PO HS [facility] Last Admin: 02/23/17 21:45 Dose: 10 mg Non-Formulary Medication (Azelastine/Fluticasone [Dymista Nasal [place]]) 23 gm NS BID [facility] Non-Formulary Medication (Cyclosporine [Restasis]) 1 each OP BID [facility] Oxycodone HCl (Roxicodone -) 5 mg PO Q6H PRN PRN Reason: PAIN Last Admin: 02/22/17 18:32 Dose: 5 mg Pantoprazole Sodium (Protonix -) 20 mg PO DAILY [facility] Last Admin: 02/24/17 11:05 Dose: 20 mg - Objective Vital Signs: Vital Signs Temperature 98.0 F 02/24/17 05:51 Pulse Rate 88 02/24/17 05:51 Respiratory Rate 20 02/24/17 05:51 Blood Pressure 146/96 02/24/17 05:51 O2 Sat by Pulse Oximetry (%) 97 02/23/17 20:36 Constitutional: Yes: No Distress, Calm Eyes: Yes: Conjunctiva Clear HENT: Yes: Atraumatic Neck: Yes: Supple Cardiovascular: Yes: Regular Rate and Rhythm Respiratory: Yes: Wheezes (better) Gastrointestinal: Yes: Soft. No: Distention, Tenderness Genitourinary: No: Hematuria Musculoskeletal: No: Joint Stiffness, Joint Swelling Extremities: No: Cold, Cool, Cyanosis Edema: No Integumentary: No: Skin Tear, Venous Stasis Changes Neurological: Yes: WNL, Alert, Oriented ...Motor Strength: WNL Psychiatric: Yes: WNL, Alert, Oriented. No: Agitated, Suicidal Ideation Labs: CBC, BMP 02/24/17 05:55 02/24/17 05:55 INR, PTT INR 0.96 (0.82-1.09) 02/14/17 07:45 - ....Imaging Other: Report Reviewed Assessment/Plan Spontaneous Pneumothorax after coughing spell at home COPD O2 dep Chronic Hypoxic Respiratory Failure +Troponins, f/u by cardiology high WBC on steroids - 1 chest tube removed; pulmonary and CT surgery f/u - chest CT lung expanded well - cardiac and pulm f/u - iv solumedrol - supplemental O2 - inhaled bronchodilators - DVT prophylaxis - analgesics - f/u labs falls PFX d/w pt do not get OOB alone, ask for help if needs OOB prognosis guarded falls pfx d/w pt and staff
[2017-02-24] MEDS ORDERED: FLUCONAZOLE 150 MG TABLET PO ONE (12:01)
--- NOTE | 2017-02-24 12:09 | PN ---
Progress Note (short form) - Note Progress Note: Spoke with Dr. Hernandez and he asked to have one pigtail removed. The more inferior/posterior pigtail cath was removed. a Xeroform, dry dressing with tegaderm was applied. Will order a new xray.
[2017-02-24] MEDS ORDERED: PT OWN MED DRAWER 7, Y5N ONE (13:43)
--- NOTE | 2017-02-24 14:39 | PN ---
Progress Note (short form) - Note Progress Note: PULMONARY AWAKE/ALERT SUBJECTIVE IMPROVEMENT ONE PIGTAIL CATHETER REMOVED REPEAT CXR OFFICIAL READING PENDING TO MY REVIEW AN APICAL PTX REMAINS PIGTAIL IS PRESENTLY CLAMPED WILL UNCLAMP AND PLACE ON SUCTION WILL ADJUST STEROIDS Leonardo MARSH MD
--- NOTE | 2017-02-24 15:53 | PN ---
Progress Note (short form) - Note Progress Note: Thoracic Surgery: Reviewed CXR. Seems c/w yesterday afternoon's CXR, but worse than this AM. Could be small amount of entrained air when tube was pulled. After release of clamp, there was no air suggesting air-leak in pleurovac. In fact, not tidaling. I have reclamped chest tube. I don't think this tube is doing anything. Will check CXR in AM. If unchanged or better, can remove in AM. If worse, will put doxycyline in tubing and place back on suction. This is his first PTX and she is on prednisone so doxy may not take well. However, it does appear there is no further air-leak so she should do OK with chest tube removal.
[2017-02-24] MEDS ORDERED: FLUCONAZOLE 100 MG TABLET (UD) PO ONE (17:30)
[2017-02-24] MEDS: ACETAMINOPHEN 325 MG TABLET (FP) PO PRN (18:03)
[2017-02-24] MEDS: oxyCODONE HCL 5 MG TABLET PO PRN (18:04)
[2017-02-24] MEDS: NYSTATIN 500,000 UNITS/5 ML SUSPENSION PO SCH (19:20)
--- NOTE | 2017-02-24 20:09 | PN ---
Progress Note (short form) - Note Progress Note: Chief Complaint: ptx History of Present Illness: new left sided flank pain since chest tube removal today. sob stable. no cp, palps, dizziness, le edema + cigs hx Current Medications Acetaminophen (Tylenol -) 650 mg PO Q6H PRN PRN Reason: FEVER OR PAIN Last Admin: 02/21/17 00:00 Dose: 650 mg Acetaminophen (Tylenol -) 325 mg PO Q6H PRN PRN Reason: PAIN Last Admin: 02/24/17 18:03 Dose: 325 mg Acetaminophen (Tylenol -) 650 mg PO Q4H PRN PRN Reason: FEVER OR PAIN Albuterol Sulfate (Ventolin 0.083% Nebulizer Soln -) 1 amp NEB Q4H PRN PRN Reason: SHORT OF BREATH/WHEEZING Last Admin: 02/23/17 18:15 Dose: 1 amp Albuterol/Ipratropium (Duoneb -) 1 amp NEB TIDR [facility] Last Admin: 02/24/17 14:40 Dose: 1 amp Aspirin (Ecotrin -) 81 mg PO DAILY [facility] Last Admin: 02/24/17 11:05 Dose: 81 mg Atorvastatin Calcium (Lipitor -) 20 mg PO HS [facility] Last Admin: 02/23/17 21:45 Dose: 20 mg Budesonide/Formoterol Fumarate (Symbicort 160/4.5mcg -) 2 puff IH BID [facility] Last Admin: 02/24/17 11:06 Dose: 2 puff Bupropion HCl (Wellbutrin Xl -) 150 mg PO DAILY [facility] Last Admin: 02/24/17 11:05 Dose: 150 mg Loratadine (Claritin -) 10 mg PO DAILY [facility] Last Admin: 02/24/17 11:05 Dose: 10 mg Methylprednisolone Sodium Succinate (Solu-Medrol -) 20 mg IVPB BID [facility] Montelukast Sodium (Singulair -) 10 mg PO HS [facility] Last Admin: 02/23/17 21:45 Dose: 10 mg Non-Formulary Medication (Azelastine/Fluticasone [Dymista Nasal [place]]) 23 gm NS BID [facility] Non-Formulary Medication (Cyclosporine [Restasis]) 1 each OP BID [facility] Nystatin (Nystatin Oral Suspension -) 500,000 units PO Q6HPO [facility] Stop: 03/01/17 12:01 Last Admin: 02/24/17 19:20 Dose: 500,000 units Oxycodone HCl (Roxicodone -) 5 mg PO Q6H PRN PRN Reason: PAIN Last Admin: 02/24/17 18:04 Dose: 5 mg Pantoprazole Sodium (Protonix -) 20 mg PO DAILY [facility] Last Admin: 02/24/17 11:05 Dose: 20 mg Vital Signs - 24 hr 02/23/17 02/24/17 02/24/17 20:36 05:51 09:00 Temperature 98.0 F 98.2 F Pulse Rate 88 109 H Respiratory 21 20 18 Rate Blood Pressure 146/96 118/83 O2 Sat by Pulse 97 Oximetry (%) 02/24/17 14:00 Temperature 98.0 F Pulse Rate 95 H Respiratory 18 Rate Blood Pressure O2 Sat by Pulse Oximetry (%) Intake & Output 02/22/17 02/23/17 02/24/17 02/25/17 07:59 07:59 07:59 07:59 Intake Total 300 685 350 250 Output Total 600 600 Balance -300 685 -250 250 Constitutional: Yes: No Distress, Calm, Obese Eyes: No: Sclera Icterus HENT: No: Nasal Congestion Cardiovascular: Yes: Regular Rate and Rhythm, S1, S2, Other (PMI non diplaced). No: JVD, Gallop, Murmur Respiratory: Yes: superficial crackles diffusely on left. anterior crepitus. ? crepitus over left back?. No: Accessory Muscle Use, Rales, Wheezes Gastrointestinal: Yes: Normal Bowel Sounds, Soft. No: Tenderness Musculoskeletal: Yes: Other (No kyphosis) Extremities: No: Cold Edema: No Integumentary: No: Jaundice Neurological: Yes: Alert, Oriented (x3) Psychiatric: No: Agitated Labs: CBC, BMP 02/24/17 05:55 02/24/17 05:55 Laboratory Tests 02/24/17 05:55 Albumin 3.3 L - ....Imaging EKG: Other (tele: NSR) Assessment/Plan Echo here: tds. nl lv/rv. valves not well seen but no sig ab. dobutamine stress: suboptimal, target HR not achieved. occ pvc's seen. diaphragmatic attenuation, no ischemica. EF 73% Assessment/Plan 61yo with h/o dchf, hl, COPD, chronic hypoxic respiratory failure on home O2, longtime prior cigs, GERD, osteoporosis, Essie's thyroiditis, MGUS who p/w CP/sob found to have ptx. spontaneous PTX, severe copd on home O2 and maintenance steroids with a.e. here: -s/p pigtail catheter insertion x2 -thoracic surgery following: f -+subcutaneous emphysema on exam 02/22--pulm following as well - 02/24: 2nd chest tube removed today, apical ptx visualized on post-removal cxr. ongoing mgm't per thoracic surgery/pulm. elevated troponin: -trop elevation here, 0.18 to 0.28-->0.19 with elevated CPK likely mostly non- cardiac (i.e. skel muscle) -EKG without ischemic changes. echo without rwma. -hi risk for underlying obstructive CAD based on longstanding prior cig hx -cont ASA, statin - dobutmaine nuclear stress test negative for ischemia (although target heart rate not achieved) atyp CP: -sx's were m-skel in description, resolved HTN: -bp overall controlled here, off bp meds (not on bp meds at home) -initial elevations likely sec to acute sx's HPL: -cont home atorva preop CV eval/possible VATS? -RCRI = 0, probably decreased functional capacity -for intermediate risk thoracic surgery -possible small NSTEMI on admit, though equivocal hx. nuclear perfusion stress test negative for high risk findings.
[2017-02-24] MEDS: MONTELUKAST NA 10 MG TABLET PO SCH (21:36)
[2017-02-24] MEDS: ATORVASTATIN CA 20 MG TABLET (FP) PO SCH (21:36)
[2017-02-25] MEDS: NYSTATIN 500,000 UNITS/5 ML SUSPENSION PO SCH ×4 (00:52→18:51)
[2017-02-25] MEDS: ACETAMINOPHEN 325 MG TABLET (FP) PO PRN ×2 (01:10→09:32)
[2017-02-25] MEDS: oxyCODONE HCL 5 MG TABLET PO PRN ×2 (01:11→09:31)
[2017-02-25] MEDS: ALBUTEROL SO4 2.5/IPRATROPIUM 0.5 INH SOL 3 ML VIAL.NEB. NEB SCH ×3 (07:16→22:04)
[2017-02-25 07:24] LABS: MCH 24.1 pg (25.7-33.7); MEAN CELL VOLUME 75.2 fl (80-96); MEAN PLT VOLUME 8.1 fl (7.5-11.1); PLATELET COUNT 326 K/MM3 (134-434); RDW 18.5 % (11.6-15.6); WHITE BLOOD COUNT 29.1 K/mm3 (4.0-10.0)
[2017-02-25 08:06] LABS: ALBUMIN 3.3 g/dl (3.4-5.0); ANION GAP 8 (8-16); CALCIUM 8.8 mg/dL (8.5-10.1); CO2 30 mmol/L (21-32); GLUCOSE,RANDOM 170 mg/dL (74-106)
[2017-02-25 08:10] LABS: ALK PHOS 43 U/L (45-117); BILIRUBIN,TOTAL 0.3 mg/dL (0.2-1.0); COCKROFT - GAULT 89.3605; CREATININE 0.8 mg/dL (0.55-1.02); SGOT/AST 17 U/L (15-37); SGPT/ALT 41 U/L (12-78); TOT PROT 6.4 g/dl (6.4-8.2)
[2017-02-25] MEDS: PANTOPRAZOLE 20 MG TABLET (FP) PO SCH (09:30)
[2017-02-25] MEDS: LORATADINE 10 MG TABLET PO SCH (09:31)
[2017-02-25] MEDS: methylPREDNISolone NA SUCC 40 MG/1 ML VIAL IVPB SCH ×3 (09:33→18:51)
[2017-02-25] MEDS: BUDESONIDE/FORMETEROL FUMARATE 160/4.5 mcg INHALER IH SCH ×2 (09:39→22:29)
--- NOTE | 2017-02-25 10:46 | PN ---
Progress Note (short form) - Note Progress Note: Thoracic Surgery: One tube removed. Blew up with sq emphysema with remaining tube clamped. Reopened on suction. May have been dislodged as appears farther lateral than prior, or might have burst new bleb. Will likely need to go to OR for VATS. Will try and place tube under MAC with doxycycline. This causes pain and will need ICU bed. Discussed with Dr. James. Needs medical/cardiac optimization but believe this is necessary. If high risk cardiac, will be sure to do under MAC.
[2017-02-25] MEDS: ASPIRIN COATED 81 MG TABLET.EC PO SCH (11:09)
[2017-02-25] MEDS ORDERED: DOXYCYCLINE IVPB ONE (11:37)
[2017-02-25] MEDS ORDERED: SODIUM CHLORIDE IVPB ONE (11:37)
--- NOTE | 2017-02-25 12:04 | PN ---
Progress Note (short form) - Note Progress Note: PULMONARY/CCM Pt with worsening shortness of breath and subcutaneous emphysema after 1 tube removed, + air leak on pleur-vac. CXRs reviewed, position of pigtail catheter likely changed. Last Vital Signs Temp Pulse Resp BP Pulse Ox 98.3 F 85 18 118/85 98 02/25/17 08:04 02/25/17 08:04 02/25/17 08:04 02/25/17 08:04 02/25/17 09:00 Intake & Output 02/22/17 02/23/17 02/24/17 02/25/17 23:59 23:59 23:59 23:59 Intake Total 985 350 600 Output Total 600 400 Balance 985 -250 200 Gen: tachypneic with exertion Neck: no stridor, +subcutaneous emphysema Heart: RRR Lung: diffuse crackles Abd: soft, nontender Ext: no edema Chest tube: +air leak CBC, BMP 02/25/17 06:10 02/25/17 06:10 Active Medications Acetaminophen (Tylenol -) 650 mg PO Q6H PRN PRN Reason: FEVER OR PAIN Last Admin: 02/25/17 09:32 Dose: 650 mg Acetaminophen (Tylenol -) 325 mg PO Q6H PRN PRN Reason: PAIN Last Admin: 02/25/17 01:10 Dose: 325 mg Acetaminophen (Tylenol -) 650 mg PO Q4H PRN PRN Reason: FEVER OR PAIN Albuterol Sulfate (Ventolin 0.083% Nebulizer Soln -) 1 amp NEB Q4H PRN PRN Reason: SHORT OF BREATH/WHEEZING Last Admin: 02/23/17 18:15 Dose: 1 amp Albuterol/Ipratropium (Duoneb -) 1 amp NEB TIDR [facility] Last Admin: 02/25/17 07:16 Dose: 1 amp Aspirin (Ecotrin -) 81 mg PO DAILY [facility] Last Admin: 02/25/17 11:09 Dose: 81 mg Atorvastatin Calcium (Lipitor -) 20 mg PO HS [facility] Last Admin: 02/24/17 21:36 Dose: 20 mg Budesonide/Formoterol Fumarate (Symbicort 160/4.5mcg -) 2 puff IH BID [facility] Last Admin: 02/25/17 09:39 Dose: 2 puff Bupropion HCl (Wellbutrin Xl -) 150 mg PO DAILY [facility] Last Admin: 02/25/17 09:32 Dose: 150 mg Doxycycline Hyclate 1,000 mg/ (Sodium Chloride) 100 mls @ 100 mls/hr IVPB ONCE ONE Stop: 02/25/17 12:36 Loratadine (Claritin -) 10 mg PO DAILY [facility] Last Admin: 02/25/17 09:31 Dose: 10 mg Methylprednisolone Sodium Succinate (Solu-Medrol -) 20 mg IVPB BID [facility] Last Admin: 02/25/17 09:33 Dose: 20 mg Montelukast Sodium (Singulair -) 10 mg PO HS [facility] Last Admin: 02/24/17 21:36 Dose: 10 mg Non-Formulary Medication (Azelastine/Fluticasone [Dymista Nasal [place]]) 23 gm NS BID [facility] Non-Formulary Medication (Cyclosporine [Restasis]) 1 each OP BID [facility] Nystatin (Nystatin Oral Suspension -) 500,000 units PO Q6HPO [facility] Stop: 03/01/17 12:01 Last Admin: 02/25/17 11:16 Dose: 500,000 units Oxycodone HCl (Roxicodone -) 5 mg PO Q6H PRN PRN Reason: PAIN Last Admin: 02/25/17 09:31 Dose: 5 mg Pantoprazole Sodium (Protonix -) 20 mg PO DAILY [facility] Last Admin: 02/25/17 09:30 Dose: 20 mg A/P Spontaneous Pneumothorax Diffuse Subcutaneous Emphysema COPD Chronic Hypoxic Respiratory Failure MGUS +Troponins - discussed with thoracic surgery, will bring to OR for possible VATS/chest tube placement - keep NPO - supplemental O2 - taper medrol - inhaled bronchodilators - DVT prophylaxis - transfer to ICU for closer monitoring of airway/respiratory status Problem List - Problems (1) Pneumothorax Code(s): J93.9 - PNEUMOTHORAX, UNSPECIFIED Qualifiers: Pneumothorax type: other pneumothorax Qualified Code(s): J93.83 - Other pneumothorax; J93.8 - Other pneumothorax and air leak (2) COPD exacerbation Code(s): J44.1 - CHRONIC OBSTRUCTIVE PULMONARY DISEASE W (ACUTE) EXACERBATION (3) Chest pain Code(s): R07.9 - CHEST PAIN, UNSPECIFIED (4) Elevated troponin Code(s): R74.8 - ABNORMAL LEVELS OF OTHER SERUM ENZYMES
[2017-02-25] MEDS: SODIUM CHLORIDE 1,000 ML IV SCH (12:30)
[2017-02-25 12:36] LABS: PLATELET ESTIMATE ADEQUATE (NORMAL)
--- NOTE | 2017-02-25 14:04 | PN ---
Progress Note, Physician Chief Complaint: events noted one chest tube clamped yesterday, the other one removed per pulm & CT Sx, then pt felt "bubbles under her skin" informed last night nurse but MD not called; O2 sat >90% pt not SOB no CP. Today's CXR increasing SQ Emphysema d/w CT Sx pt needs VATS and possible Doxycycline infusion d/w pulm and cardiology, d/w pt and pt's family at bedside; pt transferred to ICU; chest tube unclamped - Current Medication List Current Medications: Active Medications Acetaminophen (Tylenol -) 650 mg PO Q6H PRN PRN Reason: FEVER OR PAIN Last Admin: 02/25/17 09:32 Dose: 650 mg Acetaminophen (Tylenol -) 325 mg PO Q6H PRN PRN Reason: PAIN Last Admin: 02/25/17 01:10 Dose: 325 mg Acetaminophen (Tylenol -) 650 mg PO Q4H PRN PRN Reason: FEVER OR PAIN Albuterol Sulfate (Ventolin 0.083% Nebulizer Soln -) 1 amp NEB Q4H PRN PRN Reason: SHORT OF BREATH/WHEEZING Last Admin: 02/23/17 18:15 Dose: 1 amp Albuterol/Ipratropium (Duoneb -) 1 amp NEB TIDR [facility] Last Admin: 02/25/17 07:16 Dose: 1 amp Aspirin (Ecotrin -) 81 mg PO DAILY [facility] Last Admin: 02/25/17 11:09 Dose: 81 mg Atorvastatin Calcium (Lipitor -) 20 mg PO HS [facility] Last Admin: 02/24/17 21:36 Dose: 20 mg Budesonide/Formoterol Fumarate (Symbicort 160/4.5mcg -) 2 puff IH BID [facility] Last Admin: 02/25/17 09:39 Dose: 2 puff Bupropion HCl (Wellbutrin Xl -) 150 mg PO DAILY [facility] Last Admin: 02/25/17 09:32 Dose: 150 mg Sodium Chloride (Normal Saline -) 1,000 mls @ 50 mls/hr IV ASDIR [facility] Last Admin: 02/25/17 12:30 Dose: 50 mls/hr Loratadine (Claritin -) 10 mg PO DAILY [facility] Last Admin: 02/25/17 09:31 Dose: 10 mg Methylprednisolone Sodium Succinate (Solu-Medrol -) 40 mg IVPB Q8H [facility] Montelukast Sodium (Singulair -) 10 mg PO HS [facility] Last Admin: 02/24/17 21:36 Dose: 10 mg Non-Formulary Medication (Azelastine/Fluticasone [Dymista Nasal [place]]) 23 gm NS BID [facility] Non-Formulary Medication (Cyclosporine [Restasis]) 1 each OP BID [facility] Nystatin (Nystatin Oral Suspension -) 500,000 units PO Q6HPO [facility] Stop: 03/01/17 12:01 Last Admin: 02/25/17 11:16 Dose: 500,000 units Oxycodone HCl (Roxicodone -) 5 mg PO Q6H PRN PRN Reason: PAIN Last Admin: 02/25/17 09:31 Dose: 5 mg Pantoprazole Sodium (Protonix -) 20 mg PO DAILY [facility] Last Admin: 02/25/17 09:30 Dose: 20 mg - Objective Vital Signs: Vital Signs Temperature 97.5 F L 02/25/17 12:00 Pulse Rate 86 02/25/17 12:00 Respiratory Rate 18 02/25/17 12:00 Blood Pressure 138/85 02/25/17 12:00 O2 Sat by Pulse Oximetry (%) 98 02/25/17 13:41 Constitutional: Yes: No Distress, Calm Eyes: Yes: Conjunctiva Clear HENT: Yes: Atraumatic Neck: Yes: Supple Cardiovascular: Yes: Regular Rate and Rhythm Respiratory: Yes: Diminished, Other (sq air chest, upper arms, neck) Gastrointestinal: Yes: Soft, Abdomen, Obese. No: Distention, Tenderness Genitourinary: No: CVA Tenderness - Left, CVA Tenderness - Right Musculoskeletal: No: Joint Stiffness, Joint Swelling Extremities: No: Cold, Cool, Cyanosis Edema: No Peripheral Pulses WNL: Yes Integumentary: No: Rash, Skin Tear, Venous Stasis Changes Neurological: Yes: WNL, Alert, Oriented ...Motor Strength: WNL Psychiatric: Yes: WNL, Alert, Oriented. No: Agitated, Suicidal Ideation Labs: CBC, BMP 02/25/17 06:10 02/25/17 06:10 INR, PTT INR 0.96 (0.82-1.09) 02/14/17 07:45 - ....Imaging Chest X-ray: Report Reviewed Other: Report Reviewed Assessment/Plan Spontaneous Pneumothorax after coughing spell at home advanced COPD O2 dep Chronic Hypoxic Respiratory Failure +Troponins, f/u by cardiology, stress test negative, echo no significant changes high WBC on steroids developed increased SQ emphysema after removing 1 chest tube and clamping the other chest tube; CT unclamped pt transferred to ICU d/w CT Sx dr Zapata d/w pulm dr Jean and cardio dr Leal; no absolute contraindications for VATs procedure ICU postop - cardiac and pulm f/u - iv solumedrol stress doses - supplemental O2 - inhaled bronchodilators - DVT prophylaxis - analgesics - f/u labs falls PFX d/w pt do not get OOB alone, ask for help if needs OOB d/w pt and staff d/w pt's family at bedside t time 60 min
--- NOTE | 2017-02-25 14:48 | PN ---
Physical Exam: SUBJECTIVE: Patient seen and examined in ICU. She is complaining of throat discomfort and swelling in her left arm and on her chest. OBJECTIVE: Vital Signs Period Temp Pulse Resp BP Sys/Stringer Pulse Ox Last 24 Hr 97.5 F-98.3 F 85-87 18-18 118-138/85-94 98-98 GENERAL: The patient is awake, alert, and fully oriented, in no mild distress, lying in bed on NC. HEAD: Normal with no signs of trauma. EYES: extraocular movements intact, sclera anicteric, conjunctiva clear. No ptosis. ENT: oropharynx clear without exudates, moist mucous membranes. NECK: Trachea midline, full range of motion, supple. LUNGS: Breath sounds equal, clear to auscultation bilaterally, no wheezes, no crackles, no accessory muscle use. HEART: Regular rate and rhythm, distant S1, S2 without murmur, rub or gallop. ABDOMEN: Obese, soft, nontender, nondistended, normoactive bowel sounds, no guarding, no rebound, no hepatosplenomegaly, no masses. EXTREMITIES: 2+ pulses, warm, no edema. NEUROLOGICAL: Normal speech, gait not observed, motor 5/5, sensation intact. PSYCH: Normal mood, normal affect. SKIN: Warm, dry, normal turgor, no rashes, subcutaneous emphysema in left arm and chest, neck. Laboratory Results - last 24 hr 02/25/17 02/25/17 06:10 06:10 WBC 29.1 H RBC 4.80 Hgb 11.5 Hct 36.1 MCV 75.2 L MCHC 32.0 RDW 18.5 H Plt Count 326 MPV 8.1 Neutrophils % 85.0 H Lymphocytes % 12.0 D Monocytes % 3.0 L Differential Comment Manual diff done Platelet Estimate Adequate Sodium 137 Potassium 4.3 Chloride 99 Carbon Dioxide 30 Anion Gap 8 BUN 24 H Creatinine 0.8 Creat Clearance w eGFR > 60 Random Glucose 170 H D Calcium 8.8 Total Bilirubin 0.3 AST 17 ALT 41 Alkaline Phosphatase 43 L Total Protein 6.4 Albumin 3.3 L Active Medications Generic Name Dose Route Start Last Admin Trade Name Freq PRN Reason Stop Dose Admin Acetaminophen 650 mg 02/16/17 21:22 02/25/17 09:32 Tylenol - PO 650 mg Q6H PRN Administration FEVER OR PAIN Acetaminophen 325 mg 02/18/17 13:42 02/25/17 01:10 Tylenol - PO 325 mg Q6H PRN Administration PAIN Acetaminophen 650 mg 02/21/17 02:13 Tylenol - PO Q4H PRN FEVER OR PAIN Albuterol Sulfate 1 amp 02/23/17 18:05 02/23/17 18:15 Ventolin 0.083% Nebulizer Soln - NEB 1 amp Q4H PRN Administration SHORT OF BREATH/WHEEZING Albuterol/Ipratropium 1 amp 02/23/17 22:00 02/25/17 07:16 Duoneb - NEB 1 amp TIDR [facility] Administration Aspirin 81 mg 02/15/17 10:00 02/25/17 11:09 Ecotrin - PO 81 mg DAILY [facility] Administration Atorvastatin Calcium 20 mg 02/15/17 22:00 02/24/17 21:36 Lipitor - PO 20 mg HS [facility] Administration Budesonide/Formoterol Fumarate 2 puff 02/14/17 22:00 02/25/17 09:39 Symbicort 160/4.5mcg - IH 2 puff BID [facility] Administration Bupropion HCl 150 mg 02/14/17 14:00 02/25/17 09:32 Wellbutrin Xl - PO 150 mg DAILY [facility] Administration Sodium Chloride 1,000 mls @ 50 mls/hr 02/25/17 12:45 02/25/17 12:30 Normal Saline - IV 50 mls/hr ASDIR [facility] Administration Loratadine 10 mg 02/14/17 14:00 02/25/17 09:31 Claritin - PO 10 mg DAILY [facility] Administration Methylprednisolone Sodium Succinate 40 mg 02/25/17 14:00 Solu-Medrol - IVPB Q8H-IV [facility] Montelukast Sodium 10 mg 02/14/17 22:00 02/24/17 21:36 Singulair - PO 10 mg HS [facility] Administration Non-Formulary Medication 23 gm 02/14/17 22:00 Azelastine/Fluticasone [Dymista Nasal [place]] NS BID [facility] Non-Formulary Medication 1 each 02/14/17 13:15 Cyclosporine [Restasis] OP BID [facility] Nystatin 500,000 units 02/24/17 18:00 02/25/17 11:16 Nystatin Oral Suspension - PO 03/01/17 12:01 500,000 units Q6HPO [facility] Administration Oxycodone HCl 5 mg 02/18/17 13:42 02/25/17 09:31 Roxicodone - PO 5 mg Q6H PRN Administration PAIN Pantoprazole Sodium 20 mg 02/14/17 14:00 02/25/17 09:30 Protonix - PO 20 mg DAILY [facility] Administration ASSESSMENT/PLAN: 61yo with h/o chf, COPD, chronic hypoxic respiratory failure on home O2, GERD, osteoporosis, Essie's,, MGUS who presented to the hospital complaining of severee SOB and was found to have pneumothorax. spontaneous PTX, -subcutaneous emphysema on exam and CXR -s/p pigtail catheter insertion x2, one removed yesterday -thoracic surgery following today at 4 PM for VATS elevated troponin: -trop elevation here, 0.18 to 0.28-->0.19 with elevated CPK likely mostly non- cardiac (i.e. skel muscle) -EKG, no ischemic changes -echo nl -hi risk for underlying obstructive CAD based on longstanding prior cig hx -cont ASA, statin -[place] nuclear stress test negative for ischemia HTN: -bp overall controlled here, off bp meds (not on bp meds at home) -initial elevations likely sec to acute sx's HPL: -cont home atorvastatin Disposition: ICU Visit type - Emergency Visit Emergency Visit: Yes ED Registration Date: 02/14/17 Care time: The patient presented to the Emergency Department on the above date and was hospitalized for further evaluation of their emergent condition. - New Patient This patient is new to me today: Yes Date on this admission: 02/25/17 - Critical Care Critical Care patient: Yes Total Critical Care Time (in minutes): 45 Critical Care Statement: The care of this patient involved high complexity decision making to prevent further life threatening deterioration of the patient 's condition and/or to evalute & treat vital organ system(s) failure or risk of failure.
--- NOTE | 2017-02-25 15:54 | PN ---
Progress Note (short form) - Note Progress Note: Chief Complaint: ptx History of Present Illness: acute worsening of subcutaneous emphysema. sob stable. no cp, palps, dizziness, le edema + cigs hx Current Medications Acetaminophen (Tylenol -) 650 mg PO Q6H PRN PRN Reason: FEVER OR PAIN Last Admin: 02/25/17 09:32 Dose: 650 mg Acetaminophen (Tylenol -) 325 mg PO Q6H PRN PRN Reason: PAIN Last Admin: 02/25/17 01:10 Dose: 325 mg Acetaminophen (Tylenol -) 650 mg PO Q4H PRN PRN Reason: FEVER OR PAIN Albuterol Sulfate (Ventolin 0.083% Nebulizer Soln -) 1 amp NEB Q4H PRN PRN Reason: SHORT OF BREATH/WHEEZING Last Admin: 02/23/17 18:15 Dose: 1 amp Albuterol/Ipratropium (Duoneb -) 1 amp NEB TIDR [facility] Last Admin: 02/25/17 14:45 Dose: 1 amp Aspirin (Ecotrin -) 81 mg PO DAILY [facility] Last Admin: 02/25/17 11:09 Dose: 81 mg Atorvastatin Calcium (Lipitor -) 20 mg PO HS [facility] Last Admin: 02/24/17 21:36 Dose: 20 mg Budesonide/Formoterol Fumarate (Symbicort 160/4.5mcg -) 2 puff IH BID [facility] Last Admin: 02/25/17 09:39 Dose: 2 puff Bupropion HCl (Wellbutrin Xl -) 150 mg PO DAILY [facility] Last Admin: 02/25/17 09:32 Dose: 150 mg Sodium Chloride (Normal Saline -) 1,000 mls @ 50 mls/hr IV ASDIR [facility] Last Admin: 02/25/17 12:30 Dose: 50 mls/hr Loratadine (Claritin -) 10 mg PO DAILY [facility] Last Admin: 02/25/17 09:31 Dose: 10 mg Methylprednisolone Sodium Succinate (Solu-Medrol -) 40 mg IVPB Q8H-IV [facility] Last Admin: 02/25/17 15:02 Dose: 40 mg Montelukast Sodium (Singulair -) 10 mg PO HS [facility] Last Admin: 02/24/17 21:36 Dose: 10 mg Non-Formulary Medication (Azelastine/Fluticasone [Dymista Nasal [place]]) 23 gm NS BID [facility] Non-Formulary Medication (Cyclosporine [Restasis]) 1 each OP BID [facility] Nystatin (Nystatin Oral Suspension -) 500,000 units PO Q6HPO [facility] Stop: 03/01/17 12:01 Last Admin: 02/25/17 11:16 Dose: 500,000 units Oxycodone HCl (Roxicodone -) 5 mg PO Q6H PRN PRN Reason: PAIN Last Admin: 02/25/17 09:31 Dose: 5 mg Pantoprazole Sodium (Protonix -) 20 mg PO DAILY [facility] Last Admin: 02/25/17 09:30 Dose: 20 mg Vital Signs - 24 hr 02/24/17 02/25/17 02/25/17 20:15 06:00 08:04 Temperature 98.3 F 98.3 F Pulse Rate 87 85 Respiratory 18 18 18 Rate Blood Pressure 125/94 118/85 O2 Sat by Pulse Oximetry (%) 02/25/17 02/25/17 02/25/17 09:00 12:00 13:41 Temperature 97.5 F L Pulse Rate 86 Respiratory 18 Rate Blood Pressure 138/85 O2 Sat by Pulse 98 98 Oximetry (%) 02/25/17 14:00 Temperature Pulse Rate 87 Respiratory 17 Rate Blood Pressure 128/84 O2 Sat by Pulse Oximetry (%) Intake & Output 02/23/17 02/24/17 02/25/17 02/26/17 07:59 07:59 07:59 07:59 Intake Total 685 350 600 60 Output Total 600 400 Balance 685 -250 200 60 Constitutional: Yes: No Distress, Calm, Obese Eyes: No: Sclera Icterus HENT: No: Nasal Congestion Cardiovascular: Yes: Regular Rate and Rhythm, S1, S2, Other (PMI non diplaced). No: JVD, Gallop, Murmur Respiratory: Yes: superficial crackles diffusely on left. anterior crepitus. ? crepitus over left back?. No: Accessory Muscle Use, Rales, Wheezes Gastrointestinal: Yes: Normal Bowel Sounds, Soft. No: Tenderness Musculoskeletal: Yes: Other (No kyphosis) Extremities: No: Cold Edema: No Integumentary: No: Jaundice Neurological: Yes: Alert, Oriented (x3) Psychiatric: No: Agitated Labs: CBC, BMP 02/25/17 06:10 05/25/17 06:10 Laboratory Tests 02/25/17 06:10 Total Bilirubin 0.3 AST 17 ALT 41 Alkaline Phosphatase 43 L Albumin 3.3 L - ....Imaging EKG: Other (tele: NSR) Assessment/Plan Echo here: tds. nl lv/rv. valves not well seen but no sig ab. dobutamine stress: suboptimal, target HR not achieved. occ pvc's seen. diaphragmatic attenuation, no ischemica. EF 73% Assessment/Plan 61yo with h/o dchf, hl, COPD, chronic hypoxic respiratory failure on home O2, longtime prior cigs, GERD, osteoporosis, Essie's thyroiditis, MGUS who p/w CP/sob found to have ptx. spontaneous PTX, severe copd on home O2 and maintenance steroids with a.e. here: -s/p pigtail catheter insertion x2 -thoracic surgery following: f -+subcutaneous emphysema on exam 02/22--pulm following as well - 02/24: 2nd chest tube removed today, apical ptx visualized on post-removal cxr. ongoing mgm't per thoracic surgery/pulm. - 02/25: CXR with acute worsening of subcutaneous emphysema, small left apical ptx. Plan for urgent surgery today. elevated troponin: -trop elevation here, 0.18 to 0.28-->0.19 with elevated CPK likely mostly non- cardiac (i.e. skel muscle) -EKG without ischemic changes. echo without rwma. -hi risk for underlying obstructive CAD based on longstanding prior cig hx -cont ASA, statin - dobutmine nuclear stress test negative for ischemia (although target heart rate not achieved) atyp CP: -sx's were m-skel in description, resolved HTN: -bp overall controlled here, off bp meds (not on bp meds at home) -initial elevations likely sec to acute sx's HPL: -cont home atorva preop CV eval/possible VATS? -RCRI = 0, probably decreased functional capacity -possible small NSTEMI on admit, though equivocal hx. nuclear perfusion stress test negative for high risk findings. -for intermediate risk thoracic surgery today. Despite change in clinical status, remains hemodynamically stable and stable from CV perspective. -Estimated CV minerva-operative risk is low-intermediate. Greatest risk is probably from underlying advanced pulmonary disease. Pulm consult following and aware of surgical plan. cct 35 min.
[2017-02-25] MEDS ORDERED: CLINDAMYCIN 600 MG PREMIX BAG IVPB ONE (16:45)
[2017-02-25] MEDS ORDERED: LIDOCAINE HCL 1%, 10 MG/ML (20ML VIAL) ONE ×3 (16:49→16:59)
[2017-02-25] MEDS ORDERED: LIDOCAINE HCL 1%, 10 MG/ML (50 mL VIAL) IJ ONE (17:00)
--- NOTE | 2017-02-25 17:47 | OP ---
Operative Note - Note: Operative Date: 02/25/17 Pre-Operative Diagnosis: COPD/Asthma Operation: Left VATS, pneumolysis, placement of chest tube Findings: Adhesion of left upper lobe to apex, old scarred bleb anteriorly. Lower lobe partially stuck to diaphragm. Surgeon: Isacc Hernandez Anesthesiologist/DRAW END HAND: Orin Mustafa Anesthesia: General Estimated Blood Loss (mls): 5 Drains & Tubes with Location: 28Fr Chest tube.
[2017-02-25] MEDS ORDERED: ONDANSETRON 4 MG/2 ML VIAL IVPUSH PRN (17:50)
[2017-02-25] MEDS ORDERED: HYDROmorphone *PCA* 10MG/50ML DISP.SYRIN PCA ONE (20:13)
[2017-02-25] MEDS: HYDROmorphone *PCA* 10MG/50ML DISP.SYRIN PCA SCH (20:14)
[2017-02-25] MEDS: ATORVASTATIN CA 20 MG TABLET (FP) PO SCH (22:29)
[2017-02-25] MEDS: MONTELUKAST NA 10 MG TABLET PO SCH (22:29)
[2017-02-26] MEDS: NYSTATIN 500,000 UNITS/5 ML SUSPENSION PO SCH ×4 (01:15→23:42)
[2017-02-26] MEDS: methylPREDNISolone NA SUCC 40 MG/1 ML VIAL IVPB SCH ×3 (01:15→17:03)
[2017-02-26 06:41] LABS: MCHC 32.1 g/dl (32.0-36.0); MEAN CELL VOLUME 74.5 fl (80-96); PLATELET COUNT 313 K/MM3 (134-434); RDW 18.6 % (11.6-15.6)
[2017-02-26] MEDS: ALBUTEROL SO4 2.5/IPRATROPIUM 0.5 INH SOL 3 ML VIAL.NEB. NEB SCH ×3 (06:46→21:46)
[2017-02-26 07:03] LABS: ALBUMIN 3.2 g/dl (3.4-5.0); ANION GAP 7 (8-16); BILIRUBIN,TOTAL 0.4 mg/dL (0.2-1.0); CO2 34 mmol/L (21-32); COCKROFT - GAULT 102.1275; CREATININE 0.7 mg/dL (0.55-1.02); GLUCOSE,RANDOM 106 mg/dL (74-106); SGOT/AST 19 U/L (15-37); SGPT/ALT 38 U/L (12-78); TOT PROT 6.2 g/dl (6.4-8.2)
[2017-02-26 07:04] LABS: ALK PHOS 41 U/L (45-117)
[2017-02-26 07:14] LABS: WHITE BLOOD COUNT 33.2 K/mm3 (4.0-10.0)
[2017-02-26 09:32] LABS: PLATELET ESTIMATE ADEQUATE (NORMAL)
--- NOTE | 2017-02-26 10:10 | OP ---
- Note: Patient Name: Ana Laura Gomez MR#: [id number] Procedure Date: 02/26/2017 Preoperative Diagnosis: Pneumothorax Postoperative Diagnosis: same Procedure: 1. Left VATS, pneumolysis, insertion of chest tube Indication: as above Surgeon(s): Dr. Isacc Hernandez Anesthesia: [facility] [place] Wound Classification: Clean Antibiotic Prophylaxis: n/a Findings: 1. Thoracoscopy: adhesion from left upper lobe to apex and left lower lobe to diaphragm, scarring on upper lobe anteriorly consistent with old bleb. Specimens: na. Complications: none Drains / Tubes / Catheters: 1 chest tube. Hardware / Implants: na Blood / Fluid Losses: 5cc. Blood / Fluids Administered: per anesthesia Post-Operative Condition: stable Indications: This patient is a 61 year-old female, former smoker with COPD and severe asthma on chronic steroids, who was admitted after a pneumothorax complicated by myocardial infarction. An emergent chest tube was placed by the ED followed by an IR CT guided chest tube by Dr. King that expanded her lung. After the first tube was removed she suffered from subcutaneous emphysema and it appeared as if the remaining tube was dislodged due to her obesity. For this reason, after discussion with her medical team and pulmonologists, we offered her a VATS to place a better chest tube. She was explained the risks, benefits, and alternatives of a VATS and she agreed and understood. All questions were answered. Details of Procedure: The patient was taken into the operating room and placed supine on the table. She was monitored with pulse oximetry and blood pressure monitoring. Sequential compression devices were placed. She was given sedation and placed in the right lateral decubitus position. The chest was prepared and draped in sterile fashion. I gave local anesthesia. I placed one port and visualized the lung. I then placed a chest tube to the apex. I elected not to do more given her tenuous respiratory status. We secured the tube. The lung expanded again. The wound was closed with absorbable sutures. Sterile dressings were placed. The patient was then awakened and taken to the ICU. She tolerated the procedure well.
[2017-02-26] MEDS ORDERED: PT OWN MED DRAWER 7, Y5N ONE ×2 (10:19→21:47)
[2017-02-26] MEDS: LORATADINE 10 MG TABLET PO SCH (10:21)
[2017-02-26] MEDS: PANTOPRAZOLE 20 MG TABLET (FP) PO SCH (10:22)
[2017-02-26] MEDS: ENOXAPARIN NA (PORCINE) 40 MG/0.4 ML DISP.SYRIN SQ SCH (10:22)
[2017-02-26] MEDS: ASPIRIN COATED 81 MG TABLET.EC PO SCH (10:23)
--- NOTE | 2017-02-26 10:25 | PN ---
Progress Note, Physician Chief Complaint: in ICU s/p VATs Sx; chest tube in awake alert; still with SQ emphysema; L eye closed b/o sq air no SOB; no other c/o - Current Medication List Current Medications: Active Medications Acetaminophen (Tylenol -) 650 mg PO Q6H PRN PRN Reason: FEVER OR PAIN Last Admin: 02/25/17 09:32 Dose: 650 mg Acetaminophen (Tylenol -) 325 mg PO Q6H PRN PRN Reason: PAIN Last Admin: 02/25/17 01:10 Dose: 325 mg Acetaminophen (Tylenol -) 650 mg PO Q4H PRN PRN Reason: FEVER OR PAIN Albuterol Sulfate (Ventolin 0.083% Nebulizer Soln -) 1 amp NEB Q4H PRN PRN Reason: SHORT OF BREATH/WHEEZING Last Admin: 02/23/17 18:15 Dose: 1 amp Albuterol/Ipratropium (Duoneb -) 1 amp NEB TIDR [facility] Last Admin: 02/26/17 06:46 Dose: 1 amp Aspirin (Ecotrin -) 81 mg PO DAILY [facility] Last Admin: 02/25/17 11:09 Dose: 81 mg Atorvastatin Calcium (Lipitor -) 20 mg PO HS [facility] Last Admin: 02/25/17 22:29 Dose: 20 mg Budesonide/Formoterol Fumarate (Symbicort 160/4.5mcg -) 2 puff IH BID [facility] Last Admin: 02/25/17 22:29 Dose: 2 puff Bupropion HCl (Wellbutrin Xl -) 150 mg PO DAILY [facility] Last Admin: 02/25/17 09:32 Dose: 150 mg Enoxaparin Sodium (Lovenox -) 40 mg SQ DAILY [facility] Hydromorphone HCl (Dilaudid Bow Making Machine Operator -) 0 mg CHARHOUSE WORKER CHARHOUSE WORKER [facility] PRN Reason: Protocol Stop: 03/04/17 17:51 Last Admin: 02/25/17 20:14 Dose: 0.2 mg Sodium Chloride (Normal Saline -) 1,000 mls @ 50 mls/hr IV ASDIR [facility] Last Admin: 02/25/17 12:30 Dose: 50 mls/hr Loratadine (Claritin -) 10 mg PO DAILY [facility] Last Admin: 02/25/17 09:31 Dose: 10 mg Methylprednisolone Sodium Succinate (Solu-Medrol -) 20 mg IVPB Q8H-IV [facility] Montelukast Sodium (Singulair -) 10 mg PO HS [facility] Last Admin: 02/25/17 22:29 Dose: 10 mg Non-Formulary Medication (Azelastine/Fluticasone [Dymista Nasal [place]]) 23 gm NS BID [facility] Non-Formulary Medication (Cyclosporine [Restasis]) 1 each OP BID [facility] Nystatin (Nystatin Oral Suspension -) 500,000 units PO Q6HPO [facility] Stop: 03/01/17 12:01 Last Admin: 02/26/17 06:15 Dose: 500,000 units Oxycodone HCl (Roxicodone -) 5 mg PO Q6H PRN PRN Reason: PAIN Last Admin: 02/25/17 09:31 Dose: 5 mg Pantoprazole Sodium (Protonix -) 20 mg PO DAILY [facility] Last Admin: 02/25/17 09:30 Dose: 20 mg - Objective Vital Signs: Vital Signs Temperature 98.6 F 02/26/17 06:00 Pulse Rate 94 H 02/26/17 10:06 Respiratory Rate 12 02/26/17 10:06 Blood Pressure 102/89 02/26/17 10:06 O2 Sat by Pulse Oximetry (%) 96 02/26/17 09:00 Constitutional: Yes: No Distress, Calm Eyes: Yes: Conjunctiva Clear HENT: Yes: Atraumatic Neck: Yes: Supple Cardiovascular: Yes: Regular Rate and Rhythm Respiratory: Yes: Wheezes (less) Gastrointestinal: Yes: Soft. No: Distention, Tenderness Genitourinary: No: Hematuria Musculoskeletal: No: Joint Stiffness, Joint Swelling Extremities: No: Cold, Cool, Cyanosis Edema: No Peripheral Pulses WNL: Yes Integumentary: No: Rash, Venous Stasis Changes Neurological: Yes: WNL, Alert, Oriented ...Motor Strength: WNL Psychiatric: Yes: WNL, Alert, Oriented. No: Agitated, Suicidal Ideation Labs: CBC, BMP 02/26/17 05:18 02/26/17 05:18 INR, PTT INR 0.96 (0.82-1.09) 02/14/17 07:45 - ....Imaging Other: Report Reviewed Assessment/Plan Spontaneous Pneumothorax after coughing spell at home advanced COPD O2 dep Chronic Hypoxic Respiratory Failure +Troponins, f/u by cardiology, stress test negative, echo no significant changes high WBC on steroids s/p VATs, pneumothorax and sq emphysema pt transferred to ICU postop - cardiac and pulm f/u - iv solumedrol taper - supplemental O2 - inhaled bronchodilators - DVT prophylaxis - analgesics - f/u labs falls PFX d/w pt do not get OOB alone, ask for help if needs OOB d/w pt and staff t time 40 min
[2017-02-26] MEDS: BUDESONIDE/FORMETEROL FUMARATE 160/4.5 mcg INHALER IH SCH ×2 (13:04→23:42)
--- NOTE | 2017-02-26 13:29 | PN ---
Teaching Attending Note Name of Resident: Eleanor Soto ATTENDING PHYSICIAN STATEMENT I saw and evaluated the patient. I reviewed the resident's note and discussed the case with the resident. I agree with the resident's findings and plan as documented. SUBJECTIVE: Patient and examined in the ICU. S/P Left VATS/pneumolysis/CT placement yesterday. Still with extensive SQ emphysema. She reports that her breathing is slightly better today. No CP. No obvious air leak noted. CXR: CT intact / no PTX Intake & Output 02/23/17 02/24/17 02/25/17 02/26/17 23:59 23:59 23:59 23:59 Intake Total 670 545 4715 1940 Output Total 600 400 795 510 Balance -250 145 471 0277 Last Vital Signs Temp Pulse Resp BP Pulse Ox 98 F 102 H 16 130/79 96 02/26/17 12:06 02/26/17 12:06 02/26/17 12:06 02/26/17 12:06 02/26/17 09:00 Active Medications Acetaminophen (Tylenol -) 650 mg PO Q6H PRN PRN Reason: FEVER OR PAIN Last Admin: 02/25/17 09:32 Dose: 650 mg Acetaminophen (Tylenol -) 325 mg PO Q6H PRN PRN Reason: PAIN Last Admin: 02/25/17 01:10 Dose: 325 mg Acetaminophen (Tylenol -) 650 mg PO Q4H PRN PRN Reason: FEVER OR PAIN Albuterol Sulfate (Ventolin 0.083% Nebulizer Soln -) 1 amp NEB Q4H PRN PRN Reason: SHORT OF BREATH/WHEEZING Last Admin: 02/23/17 18:15 Dose: 1 amp Albuterol/Ipratropium (Duoneb -) 1 amp NEB TIDR [facility] Last Admin: 02/26/17 06:46 Dose: 1 amp Aspirin (Ecotrin -) 81 mg PO DAILY [facility] Last Admin: 02/26/17 10:23 Dose: 81 mg Atorvastatin Calcium (Lipitor -) 20 mg PO HS [facility] Last Admin: 02/25/17 22:29 Dose: 20 mg Budesonide/Formoterol Fumarate (Symbicort 160/4.5mcg -) 2 puff IH BID [facility] Last Admin: 02/26/17 13:04 Dose: 2 puff Bupropion HCl (Wellbutrin Xl -) 150 mg PO DAILY [facility] Last Admin: 02/26/17 10:22 Dose: 150 mg Enoxaparin Sodium (Lovenox -) 40 mg SQ DAILY [facility] Last Admin: 02/26/17 10:22 Dose: 40 mg Hydromorphone HCl (Dilaudid Donation Specialist -) 0 mg SUPERVISOR ENGRAVING SUPERVISOR ENGRAVING [facility] PRN Reason: Protocol Stop: 03/04/17 17:51 Last Admin: 02/25/17 20:14 Dose: 0.2 mg Sodium Chloride (Normal Saline -) 1,000 mls @ 50 mls/hr IV ASDIR [facility] Last Admin: 02/25/17 12:30 Dose: 50 mls/hr Loratadine (Claritin -) 10 mg PO DAILY [facility] Last Admin: 02/26/17 10:21 Dose: 10 mg Methylprednisolone Sodium Succinate (Solu-Medrol -) 20 mg IVPB Q8H-IV [facility] Last Admin: 02/26/17 10:22 Dose: 20 mg Montelukast Sodium (Singulair -) 10 mg PO HS [facility] Last Admin: 02/25/17 22:29 Dose: 10 mg Non-Formulary Medication (Azelastine/Fluticasone [Dymista Nasal [place]]) 23 gm NS BID [facility] Non-Formulary Medication (Cyclosporine [Restasis]) 1 each OP BID [facility] Nystatin (Nystatin Oral Suspension -) 500,000 units PO Q6HPO [facility] Stop: 03/01/17 12:01 Last Admin: 02/26/17 06:15 Dose: 500,000 units Oxycodone HCl (Roxicodone -) 5 mg PO Q6H PRN PRN Reason: PAIN Last Admin: 02/25/17 09:31 Dose: 5 mg Pantoprazole Sodium (Protonix -) 20 mg PO DAILY [facility] Last Admin: 02/26/17 10:22 Dose: 20 mg Gen: Awake and alert, Mildly tachypneic Neck: no stridor, +subcutaneous emphysema Heart: RRR Lung: diffuse crackles Abd: soft, nontender Ext: no edema Chest tube: (-) air leak Laboratory Results - last 24 hr 02/26/17 02/26/17 05:18 05:18 WBC 33.2 H* RBC 4.82 Hgb 11.5 Hct 35.9 MCV 74.5 L MCHC 32.1 RDW 18.6 H Plt Count 313 MPV 8.0 Neutrophils % 87.0 H Lymphocytes % 8.0 D Monocytes % 4.0 Myelocytes 1 Differential Comment Manual diff done Platelet Estimate Adequate Sodium 140 Potassium 4.4 Chloride 99 Carbon Dioxide 34 H Anion Gap 7 L BUN 21 H Creatinine 0.7 Creat Clearance w eGFR > 60 Random Glucose 106 D Calcium 9.0 Total Bilirubin 0.4 D AST 19 ALT 38 Alkaline Phosphatase 41 L Total Protein 6.2 L Albumin 3.2 L A/P Spontaneous Pneumothorax Diffuse Subcutaneous Emphysema COPD Chronic Hypoxic Respiratory Failure MGUS +Troponins - discussed with thoracic surgery, will bring to OR for possible VATS/chest tube placement - keep NPO - supplemental O2 - taper medrol - inhaled bronchodilators - DVT prophylaxis - transfer to ICU for closer monitoring of airway/respiratory status Problem List - Problems (1) Pneumothorax Code(s): J93.9 - PNEUMOTHORAX, UNSPECIFIED Qualifiers: Pneumothorax type: other pneumothorax Qualified Code(s): J93.83 - Other pneumothorax; J93.8 - Other pneumothorax and air leak (2) COPD exacerbation Code(s): J44.1 - CHRONIC OBSTRUCTIVE PULMONARY DISEASE W (ACUTE) EXACERBATION (3) Chest pain Code(s): R07.9 - CHEST PAIN, UNSPECIFIED (4) Elevated troponin Code(s): R74.8 - ABNORMAL LEVELS OF OTHER SERUM ENZYMES A/P Spontaneous Pneumothorax Diffuse Subcutaneous Emphysema COPD Chronic Hypoxic Respiratory Failure MGUS +Troponins - CT to suction - Incentive Spirometry - O2 as needed - PO as tolerated - Steroid taper - BD TX - DVT prophylaxis - Follow CXR Dr Arnaa Critical care time spent in reviewing chart, evaluating patient and formulating plan 35 min
--- NOTE | 2017-02-26 14:51 | PN ---
Physical Exam: SUBJECTIVE: Patient seen and examined. She is feeling well. No complaints, her throat discomfort resolved. No overnight events. OBJECTIVE: Vital Signs Period Temp Pulse Resp BP Sys/Stringer Pulse Ox Last 24 Hr 98 F-98.6 F 70-107 12- 102-155/68-100 96-98 GENERAL: The patient is awake, alert, and fully oriented, in no mild distress, lying in bed. HEAD: Normal with no signs of trauma. EYES: extraocular movements intact, sclera anicteric, conjunctiva clear. Swelling on left side of her face, left eye closed. ENT: oropharynx clear without exudates, moist mucous membranes. NECK: Trachea midline, full range of motion, supple. LUNGS: Breath sounds equal, clear to auscultation bilaterally, no wheezes, no crackles, no accessory muscle use. HEART: Regular rate and rhythm, distant S1, S2 without murmur, rub or gallop. ABDOMEN: Obese, soft, nontender, nondistended, normoactive bowel sounds, no guarding, no rebound, no hepatosplenomegaly, no masses. EXTREMITIES: 2+ pulses, warm, no edema. NEUROLOGICAL: Normal speech, gait not observed, motor 5/5, sensation intact. PSYCH: Normal mood, normal affect. SKIN: Warm, dry, normal turgor, no rashes, subcutaneous emphysema in left arm and chest, neck. Laboratory Results - last 24 hr 02/26/17 02/26/17 05:18 05:18 WBC 33.2 H* RBC 4.82 Hgb 11.5 Hct 35.9 MCV 74.5 L MCHC 32.1 RDW 18.6 H Plt Count 313 MPV 8.0 Neutrophils % 87.0 H Lymphocytes % 8.0 D Monocytes % 4.0 Myelocytes 1 Differential Comment Manual diff done Platelet Estimate Adequate Sodium 140 Potassium 4.4 Chloride 99 Carbon Dioxide 34 H Anion Gap 7 L BUN 21 H Creatinine 0.7 Creat Clearance w eGFR > 60 Random Glucose 106 D Calcium 9.0 Total Bilirubin 0.4 D AST 19 ALT 38 Alkaline Phosphatase 41 L Total Protein 6.2 L Albumin 3.2 L Active Medications Generic Name Dose Route Start Last Admin Trade Name Freq PRN Reason Stop Dose Admin Acetaminophen 650 mg 02/16/17 21:22 02/25/17 09:32 Tylenol - PO 650 mg Q6H PRN Administration FEVER OR PAIN Acetaminophen 325 mg 02/18/17 13:42 02/25/17 01:10 Tylenol - PO 325 mg Q6H PRN Administration PAIN Acetaminophen 650 mg 02/21/17 02:13 Tylenol - PO Q4H PRN FEVER OR PAIN Albuterol Sulfate 1 amp 02/23/17 18:05 02/23/17 18:15 Ventolin 0.083% Nebulizer Soln - NEB 1 amp Q4H PRN Administration SHORT OF BREATH/WHEEZING Albuterol/Ipratropium 1 amp 02/23/17 22:00 02/26/17 14:01 Duoneb - NEB 1 amp TIDR KAMLESH Administration Aspirin 81 mg 02/15/17 10:00 02/26/17 10:23 Ecotrin - PO 81 mg DAILY KAMLESH Administration Atorvastatin Calcium 20 mg 02/15/17 22:00 02/25/17 22:29 Lipitor - PO 20 mg HS KAMLESH Administration Budesonide/Formoterol Fumarate 2 puff 02/14/17 22:00 02/26/17 13:04 Symbicort 160/4.5mcg - IH 2 puff BID KAMLESH Administration Bupropion HCl 150 mg 02/14/17 14:00 02/26/17 10:22 Wellbutrin Xl - PO 150 mg DAILY [facility] Administration Enoxaparin Sodium 40 mg 02/26/17 10:00 02/26/17 10:22 Lovenox - SQ 40 mg DAILY [facility] Administration Hydromorphone HCl 0 mg 02/25/17 18:00 02/25/17 20:14 Dilaudid Custom Stock Maker - SAWYER HELPER 03/04/17 17:51 0.2 mg SAWYER HELPER KAMLESH Administration Protocol Sodium Chloride 1,000 mls @ 50 mls/hr 02/25/17 12:45 02/25/17 12:30 Normal Saline - IV 50 mls/hr ASDIR KAMLESH Administration Loratadine 10 mg 02/14/17 14:00 02/26/17 10:21 Claritin - PO 10 mg DAILY K[facility]LES[facility] Administration Methylprednisolone Sodium Succinate 20 mg 02/26/17 09:06 02/26/17 10:22 Solu-Medrol - IVPB 20 mg Q8H-IV KAMLESH Administration Montelukast Sodium 10 mg 02/14/17 22:00 02/25/17 22:29 Singulair - PO 10 mg HS KAMLESH Administration Non-Formulary Medication 23 gm 02/14/17 22:00 Azelastine/Fluticasone [Dymista Nasal [place]] NS BID K[facility]LES[facility] Non-Formulary Medication 1 each 02/14/17 13:15 Cyclosporine [Restasis] OP BID K[facility]LES[facility] Nystatin 500,000 units 02/24/17 18:00 02/26/17 06:15 Nystatin Oral Suspension - PO 03/01/17 12:01 500,000 units Q6HPO KAMLES[facility] Administration Oxycodone HCl 5 mg 02/18/17 13:42 02/25/17 09:31 Roxicodone - PO 5 mg Q6H PRN Administration PAIN Pantoprazole Sodium 20 mg 02/14/17 14:00 02/26/17 10:22 Protonix - PO 20 mg DAILY K[facility]LES[facility] Administration ASSESSMENT/PLAN: 61yo with h/o chf, COPD, chronic hypoxic respiratory failure on home O2, GERD, osteoporosis, Essie's, MGUS who presented to the hospital complaining of severe SOB and was found to have pneumothorax. spontaneous PTX, -subcutaneous emphysema on exam and CXR -s/p pigtail catheter insertion x2, one removed yesterday -VATS done yesterday, no complications reported -Dilaulid PCN 0.3 elevated troponin: -trop elevation here, 0.18 to 0.28-->0.19 with elevated CPK likely mostly non- cardiac -EKG, no ischemic changes -echo nl -hi risk for underlying obstructive CAD based on longstanding prior cig hx -cont ASA, statin -[place] nuclear stress test negative for ischemia HTN: -bp overall controlled here, off bp meds (not on bp meds at home) -initial elevations likely sec to acute sx's HPL: -cont home atorvastatin Disposition: ICU, possible transfer to med surg tomorrow Problem List - Problems (1) Elevated troponin Code(s): R74.8 - ABNORMAL LEVELS OF OTHER SERUM ENZYMES (2) Pneumothorax Code(s): J93.9 - PNEUMOTHORAX, UNSPECIFIED Qualifiers: Pneumothorax type: other pneumothorax Qualified Code(s): J93.83 - Other pneumothorax; J93.8 - Other pneumothorax and air leak (3) COPD exacerbation Code(s): J44.1 - CHRONIC OBSTRUCTIVE PULMONARY DISEASE W (ACUTE) EXACERBATION (4) Respiratory distress Code(s): R06.00 - DYSPNEA, UNSPECIFIED Visit type - Emergency Visit Emergency Visit: Yes ED Registration Date: 02/14/17 Care time: The patient presented to the Emergency Department on the above date and was hospitalized for further evaluation of their emergent condition. - New Patient This patient is new to me today: No - Critical Care Critical Care patient: Yes Total Critical Care Time (in minutes): 45 Critical Care Statement: The care of this patient involved high complexity decision making to prevent further life threatening deterioration of the patient 's condition and/or to evalute & treat vital organ system(s) failure or risk of failure.
--- NOTE | 2017-02-26 16:01 | PN ---
Progress Note (short form) - Note Progress Note: Chief Complaint: ptx History of Present Illness: S/P Left VATS/pneumolysis/CT placement yesterday. sob stable. no cp, palps, dizziness, le edema + cigs hx Current Medications Acetaminophen (Tylenol -) 650 mg PO Q6H PRN PRN Reason: FEVER OR PAIN Last Admin: 02/25/17 09:32 Dose: 650 mg Acetaminophen (Tylenol -) 325 mg PO Q6H PRN PRN Reason: PAIN Last Admin: 02/25/17 01:10 Dose: 325 mg Acetaminophen (Tylenol -) 650 mg PO Q4H PRN PRN Reason: FEVER OR PAIN Albuterol Sulfate (Ventolin 0.083% Nebulizer Soln -) 1 amp NEB Q4H PRN PRN Reason: SHORT OF BREATH/WHEEZING Last Admin: 02/23/17 18:15 Dose: 1 amp Albuterol/Ipratropium (Duoneb -) 1 amp NEB TIDR [facility] Last Admin: 02/26/17 14:01 Dose: 1 amp Aspirin (Ecotrin -) 81 mg PO DAILY [facility] Last Admin: 02/26/17 10:23 Dose: 81 mg Atorvastatin Calcium (Lipitor -) 20 mg PO HS [facility] Last Admin: 02/25/17 22:29 Dose: 20 mg Budesonide/Formoterol Fumarate (Symbicort 160/4.5mcg -) 2 puff IH BID [facility] Last Admin: 02/26/17 13:04 Dose: 2 puff Bupropion HCl (Wellbutrin Xl -) 150 mg PO DAILY [facility] Last Admin: 02/26/17 10:22 Dose: 150 mg Enoxaparin Sodium (Lovenox -) 40 mg SQ DAILY [facility] Last Admin: 02/26/17 10:22 Dose: 40 mg Hydromorphone HCl (Dilaudid Toll Line Mechanic -) 0 mg HAND BRAILLE TRANSCRIBER HAND BRAILLE TRANSCRIBER KAMLESH PRN Reason: Protocol Stop: 03/04/17 17:51 Last Admin: 02/25/17 20:14 Dose: 0.2 mg Sodium Chloride (Normal Saline -) 1,000 mls @ 50 mls/hr IV ASDIR [facility] Last Admin: 02/25/17 12:30 Dose: 50 mls/hr Loratadine (Claritin -) 10 mg PO DAILY [facility] Last Admin: 02/26/17 10:21 Dose: 10 mg Methylprednisolone Sodium Succinate (Solu-Medrol -) 20 mg IVPB Q8H-IV [facility] Last Admin: 02/26/17 10:22 Dose: 20 mg Montelukast Sodium (Singulair -) 10 mg PO HS [facility] Last Admin: 02/25/17 22:29 Dose: 10 mg Non-Formulary Medication (Azelastine/Fluticasone [Dymista Nasal [place]]) 23 gm NS BID [facility] Non-Formulary Medication (Cyclosporine [Restasis]) 1 each OP BID [facility] Nystatin (Nystatin Oral Suspension -) 500,000 units PO Q6HPO [facility] Stop: 03/01/17 12:01 Last Admin: 02/26/17 06:15 Dose: 500,000 units Oxycodone HCl (Roxicodone -) 5 mg PO Q6H PRN PRN Reason: PAIN Last Admin: 02/25/17 09:31 Dose: 5 mg Pantoprazole Sodium (Protonix -) 20 mg PO DAILY [facility] Last Admin: 02/26/17 10:22 Dose: 20 mg Vital Signs - 24 hr 02/25/17 02/25/17 02/25/17 17:45 18:00 18:15 Temperature 98.4 F Pulse Rate 98 H 102 H 107 H Respiratory 18 13 21 Rate Blood Pressure 142/93 139/95 133/91 O2 Sat by Pulse Oximetry (%) 02/25/17 02/25/17 02/25/17 18:30 19:00 19:51 Temperature 98.6 F Pulse Rate 98 H 100 H Respiratory 17 16 16 Rate Blood Pressure 133/95 150/100 O2 Sat by Pulse 98 Oximetry (%) 02/25/17 02/25/17 02/25/17 20:00 20:14 20:44 Temperature 98.4 F Pulse Rate 94 H 94 H 83 Respiratory 16 14 14 Rate Blood Pressure 134/78 126/78 128/96 O2 Sat by Pulse Oximetry (%) 02/25/17 02/25/17 02/25/17 21:14 21:44 22:00 Temperature Pulse Rate 85 76 91 H Respiratory 14 14 17 Rate Blood Pressure 130/94 124/84 132/75 O2 Sat by Pulse Oximetry (%) 02/25/17 02/25/17 02/25/17 22:14 22:44 23:14 Temperature Pulse Rate 84 85 90 Respiratory 14 12 Rate Blood Pressure 130/100 134/100 O2 Sat by Pulse Oximetry (%) 02/25/17 02/26/17 02/26/17 23:44 00:00 00:14 Temperature 98.2 F Pulse Rate 92 H 78 78 Respiratory 12 12 12 Rate Blood Pressure 128/85 128/85 O2 Sat by Pulse Oximetry (%) 02/26/17 02/26/17 02/26/17 01:14 02:00 02:14 Temperature Pulse Rate 77 74 74 Respiratory 12 12 12 Rate Blood Pressure 130/80 121/77 121/77 O2 Sat by Pulse Oximetry (%) 02/26/17 02/26/17 02/26/17 03:14 04:00 04:14 Temperature Pulse Rate 76 83 83 Respiratory 14 22 20 Rate Blood Pressure 133/68 155/83 155/83 O2 Sat by Pulse Oximetry (%) 02/26/17 02/26/17 02/26/17 05:14 06:00 06:14 Temperature 98.6 F Pulse Rate 71 70 70 Respiratory 12 12 12 Rate Blood Pressure 142/82 134/81 142/81 O2 Sat by Pulse Oximetry (%) 02/26/17 02/26/17 02/26/17 08:00 09:00 10:00 Temperature Pulse Rate 96 H 94 H Respiratory 12 12 Rate Blood Pressure 116/73 102/89 O2 Sat by Pulse 96 Oximetry (%) 02/26/17 02/26/17 12:06 14:00 Temperature 98 F Pulse Rate 102 H 90 Respiratory 16 18 Rate Blood Pressure 130/79 145/99 O2 Sat by Pulse Oximetry (%) Intake & Output 02/24/17 02/25/17 02/26/17 02/27/17 07:59 07:59 07:59 07:59 Intake Total 547 605 8749 1040 Output Total 866 854 2925 600 Balance -634 027 7660 440 Constitutional: Yes: No Distress, Calm, Obese Eyes: No: Sclera Icterus HENT: No: Nasal Congestion Cardiovascular: Yes: Regular Rate and Rhythm, S1, S2, Other (PMI non diplaced). No: JVD, Gallop, Murmur Respiratory: Yes: superficial crackles diffusely on left. significant subcutaneous air No: Accessory Muscle Use, Rales, Wheezes Gastrointestinal: Yes: Normal Bowel Sounds, Soft. No: Tenderness Musculoskeletal: Yes: Other (No kyphosis) Extremities: No: Cold Edema: No Integumentary: No: Jaundice Neurological: Yes: Alert, Oriented (x3) Psychiatric: No: Agitated Labs: CBC, BMP 02/26/17 05:18 02/26/17 05:18 - ....Imaging EKG: Other (tele: NSR) Assessment/Plan Echo here: tds. nl lv/rv. valves not well seen but no sig ab. dobutamine stress: suboptimal, target HR not achieved. occ pvc's seen. diaphragmatic attenuation, no ischemica. EF 73% Assessment/Plan 61yo with h/o dchf, hl, COPD, chronic hypoxic respiratory failure on home O2, longtime prior cigs, GERD, osteoporosis, Essie's thyroiditis, MGUS who p/w CP/sob found to have ptx. spontaneous PTX, severe copd on home O2 and maintenance steroids with a.e. here: -s/p pigtail catheter insertion x2 -thoracic surgery following: f -+subcutaneous emphysema on exam 02/22--pulm following as well - 02/24: 2nd chest tube removed today, apical ptx visualized on post-removal cxr. ongoing mgm't per thoracic surgery/pulm. - 02/25: CXR with acute worsening of subcutaneous emphysema, small left apical ptx. Plan for urgent surgery today. - 02/26: S/P Left VATS/pneumolysis/CT placement yesterday elevated troponin: -trop elevation here, 0.18 to 0.28-->0.19 with elevated CPK likely mostly non- cardiac (i.e. skel muscle) -EKG without ischemic changes. echo without rwma. -hi risk for underlying obstructive CAD based on longstanding prior cig hx -cont ASA, statin - dobutmine nuclear stress test negative for ischemia (although target heart rate not achieved) atyp CP: -sx's were m-skel in description, resolved HTN: -bp overall controlled here, off bp meds (not on bp meds at home) -initial elevations likely sec to acute sx's HPL: -cont home atorva preop CV eval/S/P Left VATS/pneumolysis/CT placement 02/26 -RCRI = 0, probably decreased functional capacity -possible small NSTEMI on admit, though equivocal hx. nuclear perfusion stress test negative for high risk findings. -for intermediate risk thoracic surgery today. Despite change in clinical status, remains hemodynamically stable and stable from CV perspective. -Estimated CV minerva-operative risk is low-intermediate.
[2017-02-26] MEDS: SODIUM CHLORIDE 1,000 ML IV SCH (17:02)
[2017-02-26] MEDS: MONTELUKAST NA 10 MG TABLET PO SCH (22:43)
[2017-02-26] MEDS: ATORVASTATIN CA 20 MG TABLET (FP) PO SCH (22:43)
[2017-02-27] MEDS: methylPREDNISolone NA SUCC 40 MG/1 ML VIAL IVPB SCH ×3 (02:04→19:23)
[2017-02-27] MEDS: ALBUTEROL SO4 2.5/IPRATROPIUM 0.5 INH SOL 3 ML VIAL.NEB. NEB SCH ×3 (06:00→23:37)
[2017-02-27 06:33] LABS: BASOPHIL 0.1 % (0-2.0); EOSINOPHIL 0.1 % (0-4.5); MCH 23.5 pg (25.7-33.7); MCHC 31.1 g/dl (32.0-36.0); MEAN CELL VOLUME 75.6 fl (80-96); MEAN PLT VOLUME 8.1 fl (7.5-11.1); NEUTROPHILS 89.4 % (42.8-82.8); PLATELET COUNT 325 K/MM3 (134-434); RDW 18.6 % (11.6-15.6); WHITE BLOOD COUNT 25.9 K/mm3 (4.0-10.0)
[2017-02-27] MEDS: NYSTATIN 500,000 UNITS/5 ML SUSPENSION PO SCH ×4 (06:43→19:23)
[2017-02-27 07:01] LABS: ALBUMIN 2.9 g/dl (3.4-5.0); ANION GAP 10 (8-16); CALCIUM 8.6 mg/dL (8.5-10.1); CO2 32 mmol/L (21-32); COCKROFT - GAULT 89.3605; CREATININE 0.8 mg/dL (0.55-1.02); GLUCOSE,RANDOM 104 mg/dL (74-106); SGOT/AST 16 U/L (15-37); SGPT/ALT 31 U/L (12-78)
[2017-02-27 07:03] LABS: ALK PHOS 40 U/L (45-117); BILIRUBIN,TOTAL 0.6 mg/dL (0.2-1.0); TOT PROT 5.8 g/dl (6.4-8.2)
--- NOTE | 2017-02-27 08:50 | PN ---
Progress Note, Physician Chief Complaint: still in ICU, feels better, less pain, used very little FREIGHT SERVICE INSPECTOR - will change to po; L chest tube in; no SOB; less sq air no BM in 3 days; to take miralax po; d/w pt falls and decubs PFX; turn in bed frequently; OOB to chair with help only ; do not get OOB alone d/w pt and staff - Current Medication List Current Medications: Active Medications Acetaminophen (Tylenol -) 650 mg PO Q6H PRN PRN Reason: FEVER OR PAIN Last Admin: 02/25/17 09:32 Dose: 650 mg Acetaminophen (Tylenol -) 325 mg PO Q6H PRN PRN Reason: PAIN Last Admin: 02/25/17 01:10 Dose: 325 mg Acetaminophen (Tylenol -) 650 mg PO Q4H PRN PRN Reason: FEVER OR PAIN Albuterol Sulfate (Ventolin 0.083% Nebulizer Soln -) 1 amp NEB Q4H PRN PRN Reason: SHORT OF BREATH/WHEEZING Last Admin: 02/23/17 18:15 Dose: 1 amp Albuterol/Ipratropium (Duoneb -) 1 amp NEB TIDR [facility] Last Admin: 02/27/17 06:00 Dose: 1 amp Aspirin (Ecotrin -) 81 mg PO DAILY [facility] Last Admin: 02/26/17 10:23 Dose: 81 mg Atorvastatin Calcium (Lipitor -) 20 mg PO HS [facility] Last Admin: 02/26/17 22:43 Dose: 20 mg Budesonide/Formoterol Fumarate (Symbicort 160/4.5mcg -) 2 puff IH BID [facility] Last Admin: 02/26/17 23:42 Dose: 2 puff Bupropion HCl (Wellbutrin Xl -) 150 mg PO DAILY [facility] Last Admin: 02/26/17 10:22 Dose: 150 mg Enoxaparin Sodium (Lovenox -) 40 mg SQ DAILY [facility] Last Admin: 02/26/17 10:22 Dose: 40 mg Hydromorphone HCl (Dilaudid Air Carrier Maintenance Inspector -) 0 mg FREIGHT SERVICE INSPECTOR FREIGHT SERVICE INSPECTOR [facility] PRN Reason: Protocol Stop: 03/04/17 17:51 Last Admin: 02/25/17 20:14 Dose: 0.2 mg Sodium Chloride (Normal Saline -) 1,000 mls @ 50 mls/hr IV ASDIR [facility] Last Admin: 02/26/17 17:02 Dose: 50 mls/hr Loratadine (Claritin -) 10 mg PO DAILY [facility] Last Admin: 02/26/17 10:21 Dose: 10 mg Methylprednisolone Sodium Succinate (Solu-Medrol -) 20 mg IVPB Q8H-IV [facility] Last Admin: 02/27/17 02:04 Dose: 20 mg Montelukast Sodium (Singulair -) 10 mg PO HS [facility] Last Admin: 02/26/17 22:43 Dose: 10 mg Non-Formulary Medication (Azelastine/Fluticasone [Dymista Nasal [place]]) 23 gm NS BID [facility] Non-Formulary Medication (Cyclosporine [Restasis]) 1 each OP BID [facility] Nystatin (Nystatin Oral Suspension -) 500,000 units PO Q6HPO [facility] Stop: 03/01/17 12:01 Last Admin: 02/27/17 06:43 Dose: 500,000 units Oxycodone HCl (Roxicodone -) 5 mg PO Q6H PRN PRN Reason: PAIN Last Admin: 02/25/17 09:31 Dose: 5 mg Pantoprazole Sodium (Protonix -) 20 mg PO DAILY [facility] Last Admin: 02/26/17 10:22 Dose: 20 mg - Objective Vital Signs: Vital Signs Temperature 98.4 F 02/27/17 06:00 Pulse Rate 88 02/27/17 08:00 Respiratory Rate 18 02/27/17 08:00 Blood Pressure 123/76 02/27/17 08:00 O2 Sat by Pulse Oximetry (%) 100 02/26/17 22:00 Constitutional: Yes: No Distress, Calm Eyes: Yes: Conjunctiva Clear HENT: Yes: Atraumatic Neck: Yes: Supple Cardiovascular: Yes: Regular Rate and Rhythm Respiratory: Yes: CTA Bilaterally Gastrointestinal: Yes: Soft. No: Distention, Tenderness Genitourinary: No: CVA Tenderness - Left, CVA Tenderness - Right, Hematuria Musculoskeletal: No: Joint Stiffness, Joint Swelling Extremities: No: Cold, Cool, Cyanosis Edema: No Peripheral Pulses WNL: Yes Integumentary: No: Rash, Venous Stasis Changes Neurological: Yes: WNL, Alert, Oriented ...Motor Strength: WNL Psychiatric: Yes: WNL, Alert, Oriented. No: Agitated, Suicidal Ideation Labs: CBC, BMP 02/27/17 05:30 02/27/17 05:30 INR, PTT INR 0.96 (0.82-1.09) 02/14/17 07:45 - ....Imaging Other: Report Reviewed Assessment/Plan Spontaneous Pneumothorax after coughing spell at home advanced COPD O2 dep Chronic Hypoxic Respiratory Failure +Troponins, f/u by cardiology, stress test negative, echo no significant changes high WBC on steroids s/p VATs, pneumothorax and sq emphysema ICU postop - cardiac and pulm f/u; CT Sx f/u - iv solumedrol taper - supplemental O2 - inhaled bronchodilators - DVT prophylaxis - analgesics prn, miralax prn - f/u labs falls PFX d/w pt do not get OOB alone, ask for help if needs OOB d/w pt and staff t time 40 min
[2017-02-27] MEDS ORDERED: PT OWN MED DRAWER 7, Y5N ONE (09:49)
--- NOTE | 2017-02-27 09:58 | PN ---
Progress Note (short form) - Note Progress Note: Patient and examined in the ICU. CT intact. SQ emphysema grossly appears better. Reports that her breathing is slightly better today. No CP. No obvious air leak noted. CXR: CT intact / no PTX Intake & Output 02/24/17 02/25/17 02/26/17 02/27/17 23:59 23:59 23:59 23:59 Intake Total 600 1380 3630 650 Output Total 511 352 0937 600 Balance 613 102 0528 50 Last Vital Signs Temp Pulse Resp BP Pulse Ox 98.4 F 88 18 123/76 96 02/27/17 06:00 02/27/17 08:00 02/27/17 08:00 02/27/17 08:00 02/27/17 09:00 Active Medications Acetaminophen (Tylenol -) 650 mg PO Q6H PRN PRN Reason: FEVER OR PAIN Last Admin: 02/25/17 09:32 Dose: 650 mg Acetaminophen (Tylenol -) 325 mg PO Q6H PRN PRN Reason: PAIN Last Admin: 02/25/17 01:10 Dose: 325 mg Acetaminophen (Tylenol -) 650 mg PO Q4H PRN PRN Reason: FEVER OR PAIN Albuterol Sulfate (Ventolin 0.083% Nebulizer Soln -) 1 amp NEB Q4H PRN PRN Reason: SHORT OF BREATH/WHEEZING Last Admin: 02/23/17 18:15 Dose: 1 amp Albuterol/Ipratropium (Duoneb -) 1 amp NEB TIDR [facility] Last Admin: 02/27/17 06:00 Dose: 1 amp Aspirin (Ecotrin -) 81 mg PO DAILY [facility] Last Admin: 02/26/17 10:23 Dose: 81 mg Atorvastatin Calcium (Lipitor -) 20 mg PO HS [facility] Last Admin: 02/26/17 22:43 Dose: 20 mg Budesonide/Formoterol Fumarate (Symbicort 160/4.5mcg -) 2 puff IH BID [facility] Last Admin: 02/26/17 23:42 Dose: 2 puff Bupropion HCl (Wellbutrin Xl -) 150 mg PO DAILY [facility] Last Admin: 02/26/17 10:22 Dose: 150 mg Enoxaparin Sodium (Lovenox -) 40 mg SQ DAILY [facility] Last Admin: 02/26/17 10:22 Dose: 40 mg Hydromorphone HCl (Dilaudid Facility Administrator -) 0 mg PROSTHODONTIST PROSTHODONTIST [facility] PRN Reason: Protocol Stop: 03/04/17 17:51 Last Admin: 02/25/17 20:14 Dose: 0.2 mg Sodium Chloride (Normal Saline -) 1,000 mls @ 50 mls/hr IV ASDIR [facility] Last Admin: 02/26/17 17:02 Dose: 50 mls/hr Loratadine (Claritin -) 10 mg PO DAILY [facility] Last Admin: 02/26/17 10:21 Dose: 10 mg Methylprednisolone Sodium Succinate (Solu-Medrol -) 20 mg IVPB Q8H-IV [facility] Last Admin: 02/27/17 02:04 Dose: 20 mg Montelukast Sodium (Singulair -) 10 mg PO HS [facility] Last Admin: 02/26/17 22:43 Dose: 10 mg Non-Formulary Medication (Azelastine/Fluticasone [Dymista Nasal [place]]) 23 gm NS BID [facility] Non-Formulary Medication (Cyclosporine [Restasis]) 1 each OP BID [facility] Nystatin (Nystatin Oral Suspension -) 500,000 units PO Q6HPO [facility] Stop: 03/01/17 12:01 Last Admin: 02/27/17 06:43 Dose: 500,000 units Oxycodone HCl (Roxicodone -) 5 mg PO Q6H PRN PRN Reason: PAIN Last Admin: 02/25/17 09:31 Dose: 5 mg Pantoprazole Sodium (Protonix -) 20 mg PO DAILY [facility] Last Admin: 02/26/17 10:22 Dose: 20 mg Gen: Awake and alert, Less tachypneic Neck: no stridor, Less subcutaneous emphysema Heart: RRR Lung: diffuse crackles Abd: soft, nontender Ext: no edema Chest tube: (-) air leak Laboratory Results - last 24 hr 02/27/17 02/27/17 05:30 05:30 WBC 25.9 H RBC 4.72 Hgb 11.1 Hct 35.7 MCV 75.6 L MCHC 31.1 L RDW 18.6 H Plt Count 325 MPV 8.1 Neutrophils % 89.4 H Lymphocytes % 4.9 L D Monocytes % 5.5 Eosinophils % 0.1 D Basophils % 0.1 Sodium 141 Potassium 4.6 Chloride 99 Carbon Dioxide 32 Anion Gap 10 BUN 24 H Creatinine 0.8 Creat Clearance w eGFR > 60 Random Glucose 104 Calcium 8.6 Total Bilirubin 0.6 D AST 16 ALT 31 Alkaline Phosphatase 40 L Total Protein 5.8 L Albumin 2.9 L Problem List - Problems (1) Pneumothorax Code(s): J93.9 - PNEUMOTHORAX, UNSPECIFIED Qualifiers: Pneumothorax type: other pneumothorax Qualified Code(s): J93.83 - Other pneumothorax; J93.8 - Other pneumothorax and air leak (2) COPD exacerbation Code(s): J44.1 - CHRONIC OBSTRUCTIVE PULMONARY DISEASE W (ACUTE) EXACERBATION (3) Chest pain Code(s): R07.9 - CHEST PAIN, UNSPECIFIED (4) Elevated troponin Code(s): R74.8 - ABNORMAL LEVELS OF OTHER SERUM ENZYMES A/P Spontaneous Pneumothorax Diffuse Subcutaneous Emphysema COPD Chronic Hypoxic Respiratory Failure MGUS +Troponins - CT to suction - Incentive Spirometry - O2 as needed - PO as tolerated - Change to Prednisone - BD TX - DVT prophylaxis - Follow CXR - Floor Dr Arana Critical care time spent in reviewing chart, evaluating patient and formulating plan 35 min
[2017-02-27] MEDS: ASPIRIN COATED 81 MG TABLET.EC PO SCH (10:25)
[2017-02-27] MEDS: LORATADINE 10 MG TABLET PO SCH (10:25)
[2017-02-27] MEDS: ENOXAPARIN NA (PORCINE) 40 MG/0.4 ML DISP.SYRIN SQ SCH (10:25)
[2017-02-27] MEDS: BUDESONIDE/FORMETEROL FUMARATE 160/4.5 mcg INHALER IH SCH ×2 (10:28→21:47)
[2017-02-27] MEDS: PANTOPRAZOLE 20 MG TABLET (FP) PO SCH (10:46)
--- NOTE | 2017-02-27 12:36 | PN ---
Progress Note, Physician Chief Complaint: s/p VATS post op day one History of Present Illness: under MAC anesthesia - Current Medication List Current Medications: Active Medications Acetaminophen (Tylenol -) 650 mg PO Q6H PRN PRN Reason: FEVER OR PAIN Last Admin: 02/25/17 09:32 Dose: 650 mg Acetaminophen (Tylenol -) 325 mg PO Q6H PRN PRN Reason: PAIN Last Admin: 02/25/17 01:10 Dose: 325 mg Acetaminophen (Tylenol -) 650 mg PO Q4H PRN PRN Reason: FEVER OR PAIN Albuterol Sulfate (Ventolin 0.083% Nebulizer Soln -) 1 amp NEB Q4H PRN PRN Reason: SHORT OF BREATH/WHEEZING Last Admin: 02/23/17 18:15 Dose: 1 amp Albuterol/Ipratropium (Duoneb -) 1 amp NEB TIDR [facility] Last Admin: 02/27/17 06:00 Dose: 1 amp Aspirin (Ecotrin -) 81 mg PO DAILY [facility] Last Admin: 02/27/17 10:25 Dose: 81 mg Atorvastatin Calcium (Lipitor -) 20 mg PO HS [facility] Last Admin: 02/26/17 22:43 Dose: 20 mg Budesonide/Formoterol Fumarate (Symbicort 160/4.5mcg -) 2 puff IH BID [facility] Last Admin: 02/27/17 10:28 Dose: 2 puff Bupropion HCl (Wellbutrin Xl -) 150 mg PO DAILY [facility] Last Admin: 02/27/17 10:25 Dose: 150 mg Enoxaparin Sodium (Lovenox -) 40 mg SQ DAILY [facility] Last Admin: 02/27/17 10:25 Dose: 40 mg Hydromorphone HCl (Dilaudid Bereavement Counselor -) 0 mg POWER DISTRIBUTOR POWER DISTRIBUTOR [facility] PRN Reason: Protocol Stop: 03/04/17 17:51 Last Admin: 02/25/17 20:14 Dose: 0.2 mg Sodium Chloride (Normal Saline -) 1,000 mls @ 50 mls/hr IV ASDIR [facility] Last Admin: 02/26/17 17:02 Dose: 50 mls/hr Loratadine (Claritin -) 10 mg PO DAILY [facility] Last Admin: 02/27/17 10:25 Dose: 10 mg Methylprednisolone Sodium Succinate (Solu-Medrol -) 20 mg IVPB Q8H-IV [facility] Last Admin: 02/27/17 10:25 Dose: 20 mg Montelukast Sodium (Singulair -) 10 mg PO HS [facility] Last Admin: 02/26/17 22:43 Dose: 10 mg Non-Formulary Medication (Azelastine/Fluticasone [Dymista Nasal [place]]) 23 gm NS BID [facility] Non-Formulary Medication (Cyclosporine [Restasis]) 1 each OP BID [facility] Nystatin (Nystatin Oral Suspension -) 500,000 units PO Q6HPO [facility] Stop: 03/01/17 12:01 Last Admin: 02/27/17 06:43 Dose: 500,000 units Oxycodone HCl (Roxicodone -) 5 mg PO Q6H PRN PRN Reason: PAIN Last Admin: 02/25/17 09:31 Dose: 5 mg Pantoprazole Sodium (Protonix -) 20 mg PO DAILY [facility] Last Admin: 02/27/17 10:46 Dose: 20 mg - Objective Vital Signs: Vital Signs Temperature 98 F 02/27/17 10:00 Pulse Rate 88 02/27/17 12:00 Respiratory Rate 18 02/27/17 12:00 Blood Pressure 122/72 02/27/17 12:00 O2 Sat by Pulse Oximetry (%) 96 02/27/17 09:00 Constitutional: Yes: Well Nourished, No Distress Cardiovascular: Yes: WNL Respiratory: Yes: On Nasal O2 Gastrointestinal: Yes: WNL Labs: CBC, BMP 02/27/17 05:30 02/27/17 05:30 INR, PTT INR 0.96 (0.82-1.09) 02/14/17 07:45 Assessment/Plan Patient reported no adverse effects of anesthetic, breathing is better by report , pain on inspiration, will continue POWER DISTRIBUTOR until chest tube is removed.
--- NOTE | 2017-02-27 12:43 | PN ---
Progress Note (short form) - Note Progress Note: Anesthesia postop check Post op day 2, SLIP CASTER has been discontinued, patient reports good pain control, dept of anesthesia will sign off care at this time
[2017-02-27] MEDS: POLYETHYLENE GLYCOL 3350 119 GM BTL PO SCH (13:09)
[2017-02-27] MEDS: oxyCODONE HCL 5 MG TABLET PO PRN (19:24)
[2017-02-27] MEDS: ATORVASTATIN CA 20 MG TABLET (FP) PO SCH (21:48)
[2017-02-27] MEDS: MONTELUKAST NA 10 MG TABLET PO SCH (21:48)
[2017-02-28] MEDS: oxyCODONE HCL 5 MG TABLET PO PRN ×3 (01:18→19:19)
[2017-02-28] MEDS: ACETAMINOPHEN 325 MG TABLET (FP) PO PRN ×3 (01:18→19:19)
[2017-02-28] MEDS: methylPREDNISolone NA SUCC 40 MG/1 ML VIAL IVPB SCH ×3 (02:31→18:33)
[2017-02-28 06:16] LABS: MCH 23.7 pg (25.7-33.7); MCHC 31.6 g/dl (32.0-36.0); MEAN CELL VOLUME 74.9 fl (80-96); MEAN PLT VOLUME 8.2 fl (7.5-11.1); PLATELET COUNT 274 K/MM3 (134-434); RDW 18.8 % (11.6-15.6); WHITE BLOOD COUNT 23.5 K/mm3 (4.0-10.0)
[2017-02-28 06:42] LABS: ALBUMIN 2.7 g/dl (3.4-5.0); ALK PHOS 38 U/L (45-117); ANION GAP 10 (8-16); BILIRUBIN,TOTAL 0.2 mg/dL (0.2-1.0); CALCIUM 8.3 mg/dL (8.5-10.1); CO2 31 mmol/L (21-32); CREATININE 0.6 mg/dL (0.55-1.02); GLUCOSE,RANDOM 142 mg/dL (74-106); SGOT/AST 13 U/L (15-37); SGPT/ALT 29 U/L (12-78); TOT PROT 5.8 g/dl (6.4-8.2)
[2017-02-28] MEDS: ALBUTEROL SO4 2.5/IPRATROPIUM 0.5 INH SOL 3 ML VIAL.NEB. NEB SCH ×3 (06:50→22:13)
[2017-02-28] MEDS: NYSTATIN 500,000 UNITS/5 ML SUSPENSION PO SCH ×4 (06:52→18:32)
[2017-02-28] MEDS ORDERED: PT OWN MED DRAWER 7, Y5N ONE (09:07)
[2017-02-28] MEDS: ENOXAPARIN NA (PORCINE) 40 MG/0.4 ML DISP.SYRIN SQ SCH (09:09)
[2017-02-28] MEDS: ASPIRIN COATED 81 MG TABLET.EC PO SCH (09:10)
[2017-02-28] MEDS: POLYETHYLENE GLYCOL 3350 119 GM BTL PO SCH (09:10)
[2017-02-28] MEDS: PANTOPRAZOLE 20 MG TABLET (FP) PO SCH (09:10)
[2017-02-28] MEDS: LORATADINE 10 MG TABLET PO SCH (09:10)
[2017-02-28] MEDS: BUDESONIDE/FORMETEROL FUMARATE 160/4.5 mcg INHALER IH SCH ×2 (09:11→21:41)
[2017-02-28 09:30] LABS: PLATELET ESTIMATE ADEQUATE (NORMAL)
--- NOTE | 2017-02-28 10:19 | PN ---
Progress Note (short form) - Note Progress Note: Patient and examined in the ICU. CT intact. SQ emphysema grossly appears to be improving. Reports that her breathing is slightly better today. No CP bit some discomfort at the CT site. No obvious air leak noted. CXR: CT intact / no PTX Intake & Output 02/25/17 02/26/17 02/27/17 02/28/17 23:59 23:59 23:59 23:59 Intake Total 1380 3630 1910 200 Output Total 795 1810 1900 610 Balance 585 1820 10 -410 Last Vital Signs Temp Pulse Resp BP Pulse Ox 98.0 F 100 H 18 122/76 96 02/28/17 06:00 02/28/17 08:00 02/28/17 08:00 02/28/17 08:00 02/28/17 08:10 Active Medications Acetaminophen (Tylenol -) 650 mg PO Q6H PRN PRN Reason: FEVER OR PAIN Last Admin: 02/25/17 09:32 Dose: 650 mg Acetaminophen (Tylenol -) 325 mg PO Q6H PRN PRN Reason: PAIN Last Admin: 02/28/17 06:52 Dose: 325 mg Acetaminophen (Tylenol -) 650 mg PO Q4H PRN PRN Reason: FEVER OR PAIN Albuterol Sulfate (Ventolin 0.083% Nebulizer Soln -) 1 amp NEB Q4H PRN PRN Reason: SHORT OF BREATH/WHEEZING Last Admin: 02/23/17 18:15 Dose: 1 amp Albuterol/Ipratropium (Duoneb -) 1 amp NEB TIDR [facility] Last Admin: 02/28/17 06:50 Dose: 1 amp Aspirin (Ecotrin -) 81 mg PO DAILY [facility] Last Admin: 02/28/17 09:10 Dose: 81 mg Atorvastatin Calcium (Lipitor -) 20 mg PO HS [facility] Last Admin: 02/27/17 21:48 Dose: 20 mg Budesonide/Formoterol Fumarate (Symbicort 160/4.5mcg -) 2 puff IH BID [facility] Last Admin: 02/28/17 09:11 Dose: 2 puff Bupropion HCl (Wellbutrin Xl -) 150 mg PO DAILY [facility] Last Admin: 02/28/17 09:09 Dose: 150 mg Enoxaparin Sodium (Lovenox -) 40 mg SQ DAILY [facility] Last Admin: 02/28/17 09:09 Dose: 40 mg Loratadine (Claritin -) 10 mg PO DAILY [facility] Last Admin: 02/28/17 09:10 Dose: 10 mg Methylprednisolone Sodium Succinate (Solu-Medrol -) 20 mg IVPB Q8H-IV [facility] Last Admin: 02/28/17 09:09 Dose: 20 mg Montelukast Sodium (Singulair -) 10 mg PO HS [facility] Last Admin: 02/27/17 21:48 Dose: 10 mg Non-Formulary Medication (Azelastine/Fluticasone [Dymista Nasal [place]]) 23 gm NS BID [facility] Non-Formulary Medication (Cyclosporine [Restasis]) 1 each OP BID [facility] Nystatin (Nystatin Oral Suspension -) 500,000 units PO Q6HPO [facility] Stop: 03/01/17 12:01 Last Admin: 02/28/17 06:52 Dose: 500,000 units Oxycodone HCl (Roxicodone -) 5 mg PO Q6H PRN PRN Reason: PAIN Last Admin: 02/28/17 06:52 Dose: 5 mg Pantoprazole Sodium (Protonix -) 20 mg PO DAILY [facility] Last Admin: 02/28/17 09:10 Dose: 20 mg Polyethylene Glycol (Miralax (For Daily Use) -) 17 gm PO DAILY [facility] Last Admin: 02/28/17 09:10 Dose: 17 gm Gen: Awake and alert, Less tachypneic Neck: no stridor, Less subcutaneous emphysema Heart: RRR Lung: diffuse crackles Abd: soft, nontender Ext: no edema Chest tube: (-) air leak Laboratory Results - last 24 hr 02/28/17 02/28/17 05:20 05:20 WBC 23.5 H RBC 4.74 Hgb 11.2 Hct 35.5 MCV 74.9 L MCHC 31.6 L RDW 18.8 H Plt Count 274 MPV 8.2 Neutrophils % 93.0 H Lymphocytes % 4.0 L Monocytes % 2.0 L Band Neutrophils 1.0 Platelet Estimate Adequate Platelet Comment No clumping noted Sodium 141 Potassium 4.4 Chloride 100 Carbon Dioxide 31 Anion Gap 10 BUN 21 H Creatinine 0.6 D Creat Clearance w eGFR > 60 Random Glucose 142 H D Calcium 8.3 L Total Bilirubin 0.2 D AST 13 L ALT 29 Alkaline Phosphatase 38 L Total Protein 5.8 L Albumin 2.7 L Problem List - Problems (1) Pneumothorax Code(s): J93.9 - PNEUMOTHORAX, UNSPECIFIED Qualifiers: Pneumothorax type: other pneumothorax Qualified Code(s): J93.83 - Other pneumothorax; J93.8 - Other pneumothorax and air leak (2) COPD exacerbation Code(s): J44.1 - CHRONIC OBSTRUCTIVE PULMONARY DISEASE W (ACUTE) EXACERBATION (3) Chest pain Code(s): R07.9 - CHEST PAIN, UNSPECIFIED (4) Elevated troponin Code(s): R74.8 - ABNORMAL LEVELS OF OTHER SERUM ENZYMES A/P Spontaneous Pneumothorax Diffuse Subcutaneous Emphysema COPD Chronic Hypoxic Respiratory Failure MGUS +Troponins - CT to suction - Incentive Spirometry - O2 as needed - PO as tolerated - Change to Prednisone - BD TX - DVT prophylaxis - Follow CXR - Floor Dr Arana Critical care time spent in reviewing chart, evaluating patient and formulating plan 35 min
--- NOTE | 2017-02-28 11:56 | PN ---
Progress Note, Physician Chief Complaint: in ICU OOB to chair; chest tube in; has some yellow sputum but no fever/chills; WBC coming down; tapering steroids; no SOB at rest; less wheezing; CXR RLL atelectasis vs inf; d/w pulm dr Patterson will do incentive spirometry no ATB for now, close f/u ate OK, had BM small x 1; on miralax prn consults tests meds reviewed and d/w pt less SQ air on her face and chest; LUE sq air - Current Medication List Current Medications: Active Medications Acetaminophen (Tylenol -) 650 mg PO Q6H PRN PRN Reason: FEVER OR PAIN Last Admin: 02/25/17 09:32 Dose: 650 mg Acetaminophen (Tylenol -) 325 mg PO Q6H PRN PRN Reason: PAIN Last Admin: 02/28/17 06:52 Dose: 325 mg Albuterol Sulfate (Ventolin 0.083% Nebulizer Soln -) 1 amp NEB Q4H PRN PRN Reason: SHORT OF BREATH/WHEEZING Last Admin: 02/23/17 18:15 Dose: 1 amp Albuterol/Ipratropium (Duoneb -) 1 amp NEB TIDR [facility] Last Admin: 02/28/17 06:50 Dose: 1 amp Aspirin (Ecotrin -) 81 mg PO DAILY [facility] Last Admin: 02/28/17 09:10 Dose: 81 mg Atorvastatin Calcium (Lipitor -) 20 mg PO HS [facility] Last Admin: 02/27/17 21:48 Dose: 20 mg Budesonide/Formoterol Fumarate (Symbicort 160/4.5mcg -) 2 puff IH BID [facility] Last Admin: 02/28/17 09:11 Dose: 2 puff Bupropion HCl (Wellbutrin Xl -) 150 mg PO DAILY [facility] Last Admin: 02/28/17 09:09 Dose: 150 mg Enoxaparin Sodium (Lovenox -) 40 mg SQ DAILY [facility] Last Admin: 02/28/17 09:09 Dose: 40 mg Loratadine (Claritin -) 10 mg PO DAILY [facility] Last Admin: 02/28/17 09:10 Dose: 10 mg Methylprednisolone Sodium Succinate (Solu-Medrol -) 20 mg IVPB Q8H-IV [facility] Last Admin: 02/28/17 09:09 Dose: 20 mg Montelukast Sodium (Singulair -) 10 mg PO HS [facility] Last Admin: 02/27/17 21:48 Dose: 10 mg Non-Formulary Medication (Azelastine/Fluticasone [Dymista Nasal [place]]) 23 gm NS BID [facility] Non-Formulary Medication (Cyclosporine [Restasis]) 1 each OP BID [facility] Nystatin (Nystatin Oral Suspension -) 500,000 units PO Q6HPO [facility] Stop: 03/01/17 12:01 Last Admin: 02/28/17 06:52 Dose: 500,000 units Oxycodone HCl (Roxicodone -) 5 mg PO Q6H PRN PRN Reason: PAIN Last Admin: 02/28/17 06:52 Dose: 5 mg Pantoprazole Sodium (Protonix -) 20 mg PO DAILY [facility] Last Admin: 02/28/17 09:10 Dose: 20 mg Polyethylene Glycol (Miralax (For Daily Use) -) 17 gm PO DAILY [facility] Last Admin: 02/28/17 09:10 Dose: 17 gm - Objective Vital Signs: Vital Signs Temperature 98 F 02/28/17 10:00 Pulse Rate 96 H 02/28/17 10:00 Respiratory Rate 18 02/28/17 10:00 Blood Pressure 124/82 02/28/17 10:00 O2 Sat by Pulse Oximetry (%) 96 02/28/17 09:00 Constitutional: Yes: No Distress, Calm Eyes: Yes: Conjunctiva Clear HENT: Yes: Atraumatic Neck: Yes: Supple Cardiovascular: Yes: Regular Rate and Rhythm Respiratory: Yes: Wheezes (less) Gastrointestinal: Yes: Soft. No: Distention, Tenderness Musculoskeletal: No: Joint Stiffness, Joint Swelling Extremities: No: Cold, Cool, Cyanosis Edema: No Neurological: Yes: WNL, Alert, Oriented ...Motor Strength: WNL Psychiatric: Yes: WNL, Alert, Oriented. No: Agitated Labs: CBC, BMP 02/28/17 05:20 02/28/17 05:20 INR, PTT INR 0.96 (0.82-1.09) 02/14/17 07:45 - ....Imaging Other: Report Reviewed Assessment/Plan Spontaneous Pneumothorax after coughing spell at home advanced COPD O2 dep Chronic Hypoxic Respiratory Failure +Troponins, f/u by cardiology, stress test negative, echo no significant changes high WBC on steroids s/p VATs, pneumothorax and sq emphysema, improving; chest tube management per pulm and CT sx d/w pulm and pt and staff - transfer out of ICU - cardiac and pulm f/u; CT Sx f/u - iv solumedrol taper - supplemental O2 - inhaled bronchodilators - DVT prophylaxis - analgesics prn, miralax prn - f/u labs incentive spirometry f/u CXR falls PFX d/w pt do not get OOB alone, ask for help if needs OOB d/w pt and staff t time 40 min
[2017-02-28] MEDS ORDERED: ALBUTEROL SO4 0.083% IH SOL 2.5 MG/3 ML VIAL.NEB. NEB PRN (12:06)
--- NOTE | 2017-02-28 13:07 | PN ---
Progress Note (short form) - Note Progress Note: Chief Complaint: ptx History of Present Illness: sob and subcutaneous edema improved. no cp, palps, dizziness, le edema. transferred out of the icu today + cigs hx Current Medications Acetaminophen (Tylenol -) 650 mg PO Q6H PRN PRN Reason: FEVER OR PAIN Acetaminophen (Tylenol -) 325 mg PO Q6H PRN PRN Reason: PAIN Albuterol Sulfate (Ventolin 0.083% Nebulizer Soln -) 1 amp NEB Q4H PRN PRN Reason: SHORT OF BREATH/WHEEZING Albuterol/Ipratropium (Duoneb -) 1 amp NEB TIDR [facility] Aspirin (Ecotrin -) 81 mg PO DAILY [facility] Atorvastatin Calcium (Lipitor -) 20 mg PO HS [facility] Budesonide/Formoterol Fumarate (Symbicort 160/4.5mcg -) 2 puff IH BID [facility] Bupropion HCl (Wellbutrin Xl -) 150 mg PO DAILY [facility] Enoxaparin Sodium (Lovenox -) 40 mg SQ DAILY [facility] Loratadine (Claritin -) 10 mg PO DAILY [facility] Methylprednisolone Sodium Succinate (Solu-Medrol -) 20 mg IVPB Q8H-IV [facility] Montelukast Sodium (Singulair -) 10 mg PO HS [facility] Non-Formulary Medication (Azelastine/Fluticasone [Dymista Nasal [place]]) 23 gm NS BID [facility] Non-Formulary Medication (Cyclosporine [Restasis]) 1 each OP BID [facility] Nystatin (Nystatin Oral Suspension -) 500,000 units PO Q6HPO [facility] Stop: 03/01/17 12:01 Oxycodone HCl (Roxicodone -) 5 mg PO Q6H PRN PRN Reason: PAIN Pantoprazole Sodium (Protonix -) 20 mg PO DAILY [facility] Polyethylene Glycol (Miralax (For Daily Use) -) 17 gm PO DAILY [facility] Vital Signs - 24 hr 02/27/17 02/27/17 02/27/17 14:00 16:00 18:00 Temperature 98 F 98.2 F Pulse Rate 88 68 112 H Respiratory 18 18 18 Rate Blood Pressure 116/78 111/72 133/64 O2 Sat by Pulse Oximetry (%) 02/27/17 02/27/17 02/27/17 20:00 21:00 22:00 Temperature 98.8 F Pulse Rate 85 85 Respiratory 18 18 Rate Blood Pressure 114/76 123/69 O2 Sat by Pulse 96 Oximetry (%) 02/28/17 02/28/17 02/28/17 00:00 02:00 04:00 Temperature 98.0 F Pulse Rate 78 82 84 Respiratory 16 16 18 Rate Blood Pressure 120/78 135/76 142/78 O2 Sat by Pulse Oximetry (%) 02/28/17 02/28/17 02/28/17 06:00 08:00 09:00 Temperature 98.0 F Pulse Rate 86 100 H Respiratory 16 18 Rate Blood Pressure 128/68 122/76 O2 Sat by Pulse 96 Oximetry (%) 02/28/17 02/28/17 10:00 12:00 Temperature 98 F Pulse Rate 96 H 99 H Respiratory 18 18 Rate Blood Pressure 124/82 122/83 O2 Sat by Pulse Oximetry (%) Intake & Output 02/26/17 02/27/17 02/28/17 03/01/17 07:59 07:59 07:59 07:59 Intake Total 2680 2980 1460 Output Total 1305 1900 1910 Balance 1375 1080 -450 Constitutional: Yes: No Distress, Calm, Obese Eyes: No: Sclera Icterus HENT: No: Nasal Congestion Cardiovascular: Yes: Regular Rate and Rhythm, S1, S2, Other (PMI non diplaced). No: JVD, Gallop, Murmur Respiratory: Yes: improved aeration, bibasilar dullness + subcutaneous air, improving No: Accessory Muscle Use, Rales, Wheezes Gastrointestinal: Yes: Normal Bowel Sounds, Soft. No: Tenderness Musculoskeletal: Yes: Other (No kyphosis) Extremities: No: Cold Edema: No Integumentary: No: Jaundice Neurological: Yes: Alert, Oriented (x3) Psychiatric: No: Agitated Labs: CBC, BMP 02/28/17 05:20 02/28/17 05:20 - ....Imaging EKG: Other (tele: NSR) Assessment/Plan Echo here: tds. nl lv/rv. valves not well seen but no sig ab. dobutamine stress: suboptimal, target HR not achieved. occ pvc's seen. diaphragmatic attenuation, no ischemica. EF 73% Assessment/Plan 61yo with h/o dchf, hl, COPD, chronic hypoxic respiratory failure on home O2, longtime prior cigs, GERD, osteoporosis, Essie's thyroiditis, MGUS who p/w CP/sob found to have ptx. spontaneous PTX, severe copd on home O2 and maintenance steroids with a.e. here: -s/p pigtail catheter insertion x2 -+subcutaneous emphysema on exam 02/22--pulm following as well - 02/24: 2nd chest tube removed today, apical ptx visualized on post-removal cxr. ongoing mgm't per thoracic surgery/pulm. - 02/25: CXR with acute worsening of subcutaneous emphysema, small left apical ptx. --> S/P Left VATS/pneumolysis/CT placement - improving. thoracic surgery/pulm following elevated troponin: -trop elevation here, 0.18 to 0.28-->0.19 with elevated CPK likely mostly non- cardiac (i.e. skel muscle) -EKG without ischemic changes. echo without rwma. -hi risk for underlying obstructive CAD based on longstanding prior cig hx -cont ASA, statin - dobutamine nuclear stress test negative for ischemia (although target heart rate not achieved) atyp CP: -sx's were m-skel in description, resolved HTN: -bp overall controlled here, off bp meds (not on bp meds at home) -initial elevations likely sec to acute sx's HPL: -cont home atorva preop CV eval/S/P Left VATS/pneumolysis/CT placement 02/26 -RCRI = 0, probably decreased functional capacity -possible small NSTEMI on admit, though equivocal hx. nuclear perfusion stress test negative for high risk findings. -Estimated CV minerva-operative risk, low-intermediate. - BP/HR remains well controlled.
[2017-02-28] MEDS: PATIENT'S OWN MEDICATION (NON-FORMULARY) (Cyclosporine [Restasis] 1 EACH) OP SCH ×2 (15:01→15:02)
[2017-02-28] MEDS: HYDROmorphone *PCA* 10MG/50ML DISP.SYRIN PCA SCH (15:03)
[2017-02-28] MEDS: ATORVASTATIN CA 20 MG TABLET (FP) PO SCH (21:37)
[2017-02-28] MEDS: MONTELUKAST NA 10 MG TABLET PO SCH (21:37)
[2017-02-28] MEDS ORDERED: PATIENT'S OWN MEDICATION (NON-FORMULARY) (Cyclosporine [Restasis] 1 EACH) OP SCH (22:00)
[2017-03-01] MEDS: NYSTATIN 500,000 UNITS/5 ML SUSPENSION PO SCH ×3 (00:07→11:14)
[2017-03-01] MEDS: methylPREDNISolone NA SUCC 40 MG/1 ML VIAL IVPB SCH ×3 (02:39→21:20)
[2017-03-01] MEDS: oxyCODONE HCL 5 MG TABLET PO PRN ×3 (04:18→21:20)
[2017-03-01] MEDS: ACETAMINOPHEN 325 MG TABLET (FP) PO PRN ×3 (04:22→21:21)
[2017-03-01] MEDS: ALBUTEROL SO4 2.5/IPRATROPIUM 0.5 INH SOL 3 ML VIAL.NEB. NEB SCH ×3 (07:00→22:45)
--- NOTE | 2017-03-01 09:25 | PN ---
Progress Note (short form) - Note Progress Note: PULMONARY AWAKE/ALERT/VSS/AFEBRILE SUBJECTIVE IMPROVEMENT/LESS SUB-Q EMPHYSEMA ONE PIGTAIL CATHETER IN PLACE ON SUCTION REPEAT CXR PENDING TO MY REVIEW AN APICAL PTX REMAINS WILL ADJUST STEROIDS Leonardo MARSH MD
[2017-03-01] MEDS ORDERED: PT OWN MED DRAWER 7, Y5N ONE (09:41)
[2017-03-01] MEDS: LORATADINE 10 MG TABLET PO SCH (09:49)
[2017-03-01] MEDS: ASPIRIN COATED 81 MG TABLET.EC PO SCH (09:49)
[2017-03-01] MEDS: PANTOPRAZOLE 20 MG TABLET (FP) PO SCH (09:49)
[2017-03-01] MEDS: ENOXAPARIN NA (PORCINE) 40 MG/0.4 ML DISP.SYRIN SQ SCH (09:49)
[2017-03-01] MEDS: POLYETHYLENE GLYCOL 3350 119 GM BTL PO SCH (09:50)
[2017-03-01] MEDS: BUDESONIDE/FORMETEROL FUMARATE 160/4.5 mcg INHALER IH SCH ×2 (09:51→21:20)
--- NOTE | 2017-03-01 11:01 | PN ---
Progress Note, Physician Chief Complaint: feels better, consults noted; still needs chest tube for now - Current Medication List Current Medications: Active Medications Acetaminophen (Tylenol -) 650 mg PO Q6H PRN PRN Reason: FEVER OR PAIN Last Admin: 03/01/17 09:57 Dose: 650 mg Acetaminophen (Tylenol -) 325 mg PO Q6H PRN PRN Reason: PAIN Last Admin: 03/01/17 04:22 Dose: 325 mg Albuterol Sulfate (Ventolin 0.083% Nebulizer Soln -) 1 amp NEB Q4H PRN PRN Reason: SHORT OF BREATH/WHEEZING Albuterol/Ipratropium (Duoneb -) 1 amp NEB TIDR [facility] Last Admin: 03/01/17 07:00 Dose: 1 amp Aspirin (Ecotrin -) 81 mg PO DAILY [facility] Last Admin: 03/01/17 09:49 Dose: 81 mg Atorvastatin Calcium (Lipitor -) 20 mg PO [facility] Last Admin: 02/28/17 21:37 Dose: 20 mg Budesonide/Formoterol Fumarate (Symbicort 160/4.5mcg -) 2 puff IH BID [facility] [place] Last Admin: 03/01/17 09:51 Dose: 2 puff Bupropion HCl (Wellbutrin Xl -) 150 mg PO DAILY [facility] Last Admin: 03/01/17 09:51 Dose: 150 mg Enoxaparin Sodium (Lovenox -) 40 mg SQ DAILY [facility] [place] Last Admin: 03/01/17 09:49 Dose: 40 mg Loratadine (Claritin -) 10 mg PO DAILY [facility] [place] Last Admin: 03/01/17 09:49 Dose: 10 mg Methylprednisolone Sodium Succinate (Solu-Medrol -) 20 mg IVPB BID [facility] Last Admin: 03/01/17 09:50 Dose: 20 mg Montelukast Sodium (Singulair -) 10 mg PO HS [facility] [place] Last Admin: 02/28/17 21:37 Dose: 10 mg Non-Formulary Medication (Azelastine/Fluticasone [Dymista Nasal [place]]) 23 gm NS BID [facility] [place] Non-Formulary Medication (Cyclosporine [Restasis]) 1 each OP BID [facility] Nystatin (Nystatin Oral Suspension -) 500,000 units PO Q6HPO [facility] Stop: 03/01/17 12:01 Last Admin: 03/01/17 05:47 Dose: 500,000 units Oxycodone HCl (Roxicodone -) 5 mg PO Q6H PRN PRN Reason: PAIN Last Admin: 03/01/17 09:58 Dose: 5 mg Pantoprazole Sodium (Protonix -) 20 mg PO DAILY [facility] [place] Last Admin: 03/01/17 09:49 Dose: 20 mg Polyethylene Glycol (Miralax (For Daily Use) -) 17 gm PO DAILY [facility] Last Admin: 03/01/17 09:50 Dose: 17 gm - Objective Vital Signs: Vital Signs Temperature 98.1 F 03/01/17 06:00 Pulse Rate 61 03/01/17 06:00 Respiratory Rate 20 03/01/17 06:00 Blood Pressure 135/59 03/01/17 06:00 O2 Sat by Pulse Oximetry (%) 96 02/28/17 21:00 Constitutional: Yes: No Distress, Calm Eyes: Yes: Conjunctiva Clear HENT: Yes: Atraumatic Neck: Yes: Supple Cardiovascular: Yes: Regular Rate and Rhythm Respiratory: Yes: Wheezes Gastrointestinal: Yes: Soft. No: Distention, Tenderness Genitourinary: No: CVA Tenderness - Left, CVA Tenderness - Right Musculoskeletal: No: Joint Stiffness, Joint Swelling Extremities: No: Cold, Cool, Cyanosis Edema: No Integumentary: No: Rash, Venous Stasis Changes Neurological: Yes: WNL, Alert, Oriented ...Motor Strength: WNL Psychiatric: Yes: WNL, Alert, Oriented. No: Agitated, Suicidal Ideation Labs: CBC, BMP 02/28/17 05:20 02/28/17 05:20 INR, PTT INR 0.96 (0.82-1.09) 02/14/17 07:45 - ....Imaging Other: Report Reviewed Assessment/Plan Spontaneous Pneumothorax after coughing spell at home advanced COPD O2 dep Chronic Hypoxic Respiratory Failure +Troponins, f/u by cardiology, stress test negative, echo no significant changes high WBC on steroids s/p VATs, pneumothorax and sq emphysema, improving; chest tube management per pulm and CT sx d/w pulm and pt and staff - transfer out of ICU - cardiac and pulm f/u; CT Sx f/u - iv solumedrol taper and switch to po steroids per pulm - supplemental O2 - inhaled bronchodilators - DVT prophylaxis - analgesics prn, miralax prn - f/u labs incentive spirometry f/u CXR falls PFX d/w pt do not get OOB alone, ask for help if needs OOB d/w pt and staff
[2017-03-01] MEDS: MONTELUKAST NA 10 MG TABLET PO SCH (21:19)
[2017-03-01] MEDS: ATORVASTATIN CA 20 MG TABLET (FP) PO SCH (21:19)
[2017-03-02] MEDS: ALBUTEROL SO4 2.5/IPRATROPIUM 0.5 INH SOL 3 ML VIAL.NEB. NEB SCH ×3 (06:15→22:09)
[2017-03-02 08:06] LABS: MCH 24.4 pg (25.7-33.7); MCHC 32.6 g/dl (32.0-36.0); MEAN CELL VOLUME 74.8 fl (80-96); MEAN PLT VOLUME 7.9 fl (7.5-11.1); PLATELET COUNT 276 K/MM3 (134-434); RDW 18.6 % (11.6-15.6); WHITE BLOOD COUNT 22.7 K/mm3 (4.0-10.0)
[2017-03-02 08:31] LABS: CALCIUM 8.5 mg/dL (8.5-10.1); COCKROFT - GAULT 119.153; CREATININE 0.6 mg/dL (0.55-1.02)
[2017-03-02] MEDS: PANTOPRAZOLE 20 MG TABLET (FP) PO SCH (09:18)
[2017-03-02] MEDS: methylPREDNISolone NA SUCC 40 MG/1 ML VIAL IVPB SCH (09:18)
[2017-03-02] MEDS: LORATADINE 10 MG TABLET PO SCH (09:18)
[2017-03-02] MEDS: ASPIRIN COATED 81 MG TABLET.EC PO SCH (09:18)
[2017-03-02] MEDS: ENOXAPARIN NA (PORCINE) 40 MG/0.4 ML DISP.SYRIN SQ SCH (09:19)
[2017-03-02] MEDS: POLYETHYLENE GLYCOL 3350 119 GM BTL PO SCH (09:31)
[2017-03-02] MEDS: BUDESONIDE/FORMETEROL FUMARATE 160/4.5 mcg INHALER IH SCH ×2 (09:32→21:37)
[2017-03-02 10:47] LABS: PLATELET ESTIMATE ADEQUATE (NORMAL)
--- NOTE | 2017-03-02 11:06 | PN ---
Progress Note, Physician Chief Complaint: feels better no SOB no cough; CXR possible atelectasis vs inf but no fever and WBC down; d/w pulm would not treat with ATB - Current Medication List Current Medications: Active Medications Acetaminophen (Tylenol -) 650 mg PO Q6H PRN PRN Reason: FEVER OR PAIN Last Admin: 03/01/17 09:57 Dose: 650 mg Acetaminophen (Tylenol -) 325 mg PO Q6H PRN PRN Reason: PAIN Last Admin: 03/01/17 21:21 Dose: 325 mg Albuterol Sulfate (Ventolin 0.083% Nebulizer Soln -) 1 amp NEB Q4H PRN PRN Reason: SHORT OF BREATH/WHEEZING Albuterol/Ipratropium (Duoneb -) 1 amp NEB TIDR [facility] Last Admin: 03/02/17 06:15 Dose: 1 amp Aspirin (Ecotrin -) 81 mg PO DAILY [facility] Last Admin: 03/02/17 09:18 Dose: 81 mg Atorvastatin Calcium (Lipitor -) 20 mg PO HS [facility] Last Admin: 03/01/17 21:19 Dose: 20 mg Budesonide/Formoterol Fumarate (Symbicort 160/4.5mcg -) 2 puff IH BID [facility] Last Admin: 03/02/17 09:32 Dose: 2 puff Bupropion HCl (Wellbutrin Xl -) 150 mg PO DAILY [facility] Last Admin: 03/02/17 09:19 Dose: 150 mg Enoxaparin Sodium (Lovenox -) 40 mg SQ DAILY [facility] Last Admin: 03/02/17 09:19 Dose: 40 mg Loratadine (Claritin -) 10 mg PO DAILY [facility] Last Admin: 03/02/17 09:18 Dose: 10 mg Methylprednisolone Sodium Succinate (Solu-Medrol -) 20 mg IVPB BID [facility] Last Admin: 03/02/17 09:18 Dose: 20 mg Montelukast Sodium (Singulair -) 10 mg PO HS [facility] Last Admin: 03/01/17 21:19 Dose: 10 mg Non-Formulary Medication (Azelastine/Fluticasone [Dymista Nasal [place]]) 23 gm NS BID [facility] Non-Formulary Medication (Cyclosporine [Restasis]) 1 each OP BID [facility] Oxycodone HCl (Roxicodone -) 5 mg PO Q6H PRN PRN Reason: PAIN Last Admin: 03/01/17 21:20 Dose: 5 mg Pantoprazole Sodium (Protonix -) 20 mg PO DAILY [facility] Last Admin: 03/02/17 09:18 Dose: 20 mg Polyethylene Glycol (Miralax (For Daily Use) -) 17 gm PO DAILY [facility] Last Admin: 03/02/17 09:31 Dose: 17 gm - Objective Vital Signs: Vital Signs Temperature 98.4 F 03/02/17 06:36 Pulse Rate 83 03/02/17 06:36 Respiratory Rate 20 03/02/17 06:36 Blood Pressure 118/69 03/02/17 06:36 O2 Sat by Pulse Oximetry (%) 98 03/01/17 09:00 Constitutional: Yes: No Distress, Calm Eyes: Yes: Conjunctiva Clear HENT: Yes: Atraumatic Neck: Yes: Supple Cardiovascular: Yes: Regular Rate and Rhythm Respiratory: Yes: Wheezes Gastrointestinal: Yes: Soft. No: Distention, Tenderness Musculoskeletal: No: Joint Stiffness, Joint Swelling Extremities: No: Cold, Cool, Cyanosis Edema: No Integumentary: No: Rash, Venous Stasis Changes Neurological: Yes: WNL, Alert, Oriented ...Motor Strength: WNL Psychiatric: Yes: WNL, Alert, Oriented. No: Agitated, Suicidal Ideation Labs: CBC, BMP 03/02/17 06:50 03/02/17 06:50 INR, PTT INR 0.96 (0.82-1.09) 02/14/17 07:45 - ....Imaging Other: Report Reviewed Assessment/Plan Spontaneous Pneumothorax after coughing spell at home advanced COPD O2 dep Chronic Hypoxic Respiratory Failure +Troponins, f/u by cardiology, stress test negative, echo no significant changes high WBC on steroids s/p VATs, pneumothorax and sq emphysema, improving; chest tube management per pulm and CT sx d/w pulm and pt and staff - cardiac and pulm f/u; CT Sx f/u - po steroids per pulm - supplemental O2 - inhaled bronchodilators - DVT prophylaxis - analgesics prn, miralax prn - f/u labs incentive spirometry f/u CXR falls PFX d/w pt do not get OOB alone, ask for help if needs OOB d/w pt and staff
--- NOTE | 2017-03-02 11:22 | PN ---
Progress Note (short form) - Note Progress Note: Thoracic Surgery: Improving. No evidence of air-leak. Given high steroids, would recommend discharge with tube on Heimlich valve/pneumostat with VNS at home and removal in 2 weeks. Will check water seal cxr today and assess for valve tomorrow.
--- NOTE | 2017-03-02 12:07 | PN ---
Progress Note (short form) - Note Progress Note: Patient and examined in the ICU. CT intact. SQ emphysema progressively improving. Reports that her breathing is slightly better today. No obvious air leak noted. Intake & Output 02/27/17 02/28/17 03/01/17 03/02/17 23:59 23:59 23:59 23:59 Intake Total 9204 339 9629 200 Output Total 1900 610 40 20 Balance 10 -10 1480 180 Last Vital Signs Temp Pulse Resp BP Pulse Ox 98.5 F 93 H 18 121/76 98 03/02/17 10:00 03/02/17 10:00 03/02/17 10:00 03/02/17 10:00 03/01/17 09:00 Active Medications Acetaminophen (Tylenol -) 650 mg PO Q6H PRN PRN Reason: FEVER OR PAIN Last Admin: 03/01/17 09:57 Dose: 650 mg Acetaminophen (Tylenol -) 325 mg PO Q6H PRN PRN Reason: PAIN Last Admin: 03/01/17 21:21 Dose: 325 mg Albuterol Sulfate (Ventolin 0.083% Nebulizer Soln -) 1 amp NEB Q4H PRN PRN Reason: SHORT OF BREATH/WHEEZING Albuterol/Ipratropium (Duoneb -) 1 amp NEB TIDR [facility] Last Admin: 03/02/17 06:15 Dose: 1 amp Aspirin (Ecotrin -) 81 mg PO DAILY [facility] Last Admin: 03/02/17 09:18 Dose: 81 mg Atorvastatin Calcium (Lipitor -) 20 mg PO HS [facility] Last Admin: 03/01/17 21:19 Dose: 20 mg Budesonide/Formoterol Fumarate (Symbicort 160/4.5mcg -) 2 puff IH BID [facility] Last Admin: 03/02/17 09:32 Dose: 2 puff Bupropion HCl (Wellbutrin Xl -) 150 mg PO DAILY [facility] Last Admin: 03/02/17 09:19 Dose: 150 mg Enoxaparin Sodium (Lovenox -) 40 mg SQ DAILY [facility] Last Admin: 03/02/17 09:19 Dose: 40 mg Loratadine (Claritin -) 10 mg PO DAILY [facility] Last Admin: 03/02/17 09:18 Dose: 10 mg Methylprednisolone Sodium Succinate (Solu-Medrol -) 20 mg IVPB BID [facility] Last Admin: 03/02/17 09:18 Dose: 20 mg Montelukast Sodium (Singulair -) 10 mg PO HS [facility] Last Admin: 03/01/17 21:19 Dose: 10 mg Non-Formulary Medication (Azelastine/Fluticasone [Dymista Nasal [place]]) 23 gm NS BID [facility] Non-Formulary Medication (Cyclosporine [Restasis]) 1 each OP BID [facility] Oxycodone HCl (Roxicodone -) 5 mg PO Q6H PRN PRN Reason: PAIN Last Admin: 03/01/17 21:20 Dose: 5 mg Pantoprazole Sodium (Protonix -) 20 mg PO DAILY [facility] Last Admin: 03/02/17 09:18 Dose: 20 mg Polyethylene Glycol (Miralax (For Daily Use) -) 17 gm PO DAILY [facility] Last Admin: 03/02/17 09:31 Dose: 17 gm Gen: Awake and alert, NAD Neck: no stridor, Less subcutaneous emphysema Heart: RRR Lung: diffuse crackles Abd: soft, nontender Ext: no edema Chest tube: (-) air leak Laboratory Results - last 24 hr 03/02/17 03/02/17 06:50 06:50 WBC 22.7 H RBC 4.60 Hgb 11.2 Hct 34.4 MCV 74.8 L MCHC 32.6 RDW 18.6 H Plt Count 276 MPV 7.9 Neutrophils % 81.0 Lymphocytes % 13.0 D Monocytes % 5.0 D Eosinophils % 1.0 D Differential Comment Manual diff done Platelet Estimate Adequate Sodium 140 Potassium 4.3 Chloride 100 Carbon Dioxide 31 Anion Gap 9 BUN 20 H Creatinine 0.6 Random Glucose 101 D Calcium 8.5 Problem List - Problems (1) Pneumothorax Code(s): J93.9 - PNEUMOTHORAX, UNSPECIFIED Qualifiers: Pneumothorax type: other pneumothorax Qualified Code(s): J93.83 - Other pneumothorax; J93.8 - Other pneumothorax and air leak (2) COPD exacerbation Code(s): J44.1 - CHRONIC OBSTRUCTIVE PULMONARY DISEASE W (ACUTE) EXACERBATION (3) Chest pain Code(s): R07.9 - CHEST PAIN, UNSPECIFIED (4) Elevated troponin Code(s): R74.8 - ABNORMAL LEVELS OF OTHER SERUM ENZYMES A/P Spontaneous Pneumothorax Diffuse Subcutaneous Emphysema COPD Chronic Hypoxic Respiratory Failure MGUS +Troponins - CT to suction - Incentive Spirometry - O2 as needed - PO as tolerated - Prednisone - BD TX - DVT prophylaxis - Follow CXR - Agree with Jenifer Arana
[2017-03-02] MEDS: oxyCODONE HCL 5 MG TABLET PO PRN ×2 (15:47→23:31)
--- NOTE | 2017-03-02 16:55 | PN ---
Progress Note (short form) - Note Progress Note: thoracic f/u: CXR stable on water seal. New CXR in AM. If ok, home with Jenifer (PA will change tomorrow.)
[2017-03-02] MEDS: ATORVASTATIN CA 20 MG TABLET (FP) PO SCH (21:35)
[2017-03-02] MEDS: MONTELUKAST NA 10 MG TABLET PO SCH (21:35)
[2017-03-02] MEDS: ACETAMINOPHEN 325 MG TABLET (FP) PO PRN (23:30)
[2017-03-03] MEDS: ALBUTEROL SO4 2.5/IPRATROPIUM 0.5 INH SOL 3 ML VIAL.NEB. NEB SCH ×3 (05:59→22:35)
[2017-03-03] MEDS: BUDESONIDE/FORMETEROL FUMARATE 160/4.5 mcg INHALER IH SCH ×2 (09:21→21:47)
[2017-03-03] MEDS: PANTOPRAZOLE 20 MG TABLET (FP) PO SCH (09:52)
[2017-03-03] MEDS: ENOXAPARIN NA (PORCINE) 40 MG/0.4 ML DISP.SYRIN SQ SCH (09:52)
[2017-03-03] MEDS: LORATADINE 10 MG TABLET PO SCH (09:53)
[2017-03-03] MEDS: ASPIRIN COATED 81 MG TABLET.EC PO SCH (09:53)
[2017-03-03] MEDS ORDERED: predniSONE 20 MG TABLET (UD) PO SCH ×2 (10:00→11:31)
--- NOTE | 2017-03-03 10:01 | OP ---
- Note: Thoracic: CXR stable on water seal. Proceed to Heimlich and discharge with VNS. PA's to place. Sponge bath only. Will likely remove in 2 weeks.
[2017-03-03] MEDS: POLYETHYLENE GLYCOL 3350 119 GM BTL PO SCH (11:34)
[2017-03-03] MEDS: oxyCODONE HCL 5 MG TABLET PO PRN ×2 (11:34→17:56)
[2017-03-03] MEDS: ACETAMINOPHEN 325 MG TABLET (FP) PO PRN ×2 (11:34→17:57)
--- NOTE | 2017-03-03 11:41 | PN ---
Progress Note (short form) - Note Progress Note: PULMONARY AWAKE/ALERT/VSS/AFEBRILE SUBJECTIVE IMPROVEMENT/LESS SUB-Q EMPHYSEMA ONE PIGTAIL CATHETER IN PLACE ON WATER SEAL Dr. Hernandez's note reviewed Discussed with PMD WILL ADJUST STEROIDS Agree with discharge planning Leonardo MARSH MD
--- NOTE | 2017-03-03 11:57 | PN ---
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 pt needs more) and has home O2 and home nebs also ordered percocet prn; do not use if sleepy or lethargic; falls and risks and SE d/w pt she is aware do not use together with valium see DC instructions d/w pt scripts done; [employer]/ GÓMEZ checked falls pfx bathing d/w pt she said she is aware RTER if SOB/CP/fever/ bleeding t time 60 min - Current Medication List Current Medications: Active Medications Acetaminophen (Tylenol -) 650 mg PO Q6H PRN PRN Reason: FEVER OR PAIN Last Admin: 03/03/17 11:34 Dose: 650 mg Acetaminophen (Tylenol -) 325 mg PO Q6H PRN PRN Reason: PAIN Last Admin: 03/02/17 23:30 Dose: 325 mg Albuterol Sulfate (Ventolin 0.083% Nebulizer Soln -) 1 amp NEB Q4H PRN PRN Reason: SHORT OF BREATH/WHEEZING Albuterol/Ipratropium (Duoneb -) 1 amp NEB TIDR [facility] Last Admin: 03/03/17 05:59 Dose: 1 amp Aspirin (Ecotrin -) 81 mg PO DAILY [facility] Last Admin: 03/03/17 09:53 Dose: 81 mg Atorvastatin Calcium (Lipitor -) 20 mg PO HS [facility] Last Admin: 03/02/17 21:35 Dose: 20 mg Budesonide/Formoterol Fumarate (Symbicort 160/4.5mcg -) 2 puff IH BID [facility] Last Admin: 03/02/17 21:37 Dose: 2 puff Bupropion HCl (Wellbutrin Xl -) 150 mg PO DAILY [facility] Last Admin: 03/03/17 09:53 Dose: 150 mg Enoxaparin Sodium (Lovenox -) 40 mg SQ DAILY [facility] Last Admin: 03/03/17 09:52 Dose: 40 mg Loratadine (Claritin -) 10 mg PO DAILY [facility] Last Admin: 03/03/17 09:53 Dose: 10 mg Montelukast Sodium (Singulair -) 10 mg PO HS [facility] Last Admin: 03/02/17 21:35 Dose: 10 mg Non-Formulary Medication (Azelastine/Fluticasone [Dymista Nasal [place]]) 23 gm NS BID [facility] Non-Formulary Medication (Cyclosporine [Restasis]) 1 each OP BID [facility] Oxycodone HCl (Roxicodone -) 5 mg PO Q6H PRN PRN Reason: PAIN Last Admin: 03/03/17 11:34 Dose: 5 mg Pantoprazole Sodium (Protonix -) 20 mg PO DAILY [facility] Last Admin: 03/03/17 09:52 Dose: 20 mg Polyethylene Glycol (Miralax (For Daily Use) -) 17 gm PO DAILY [facility] Last Admin: 03/03/17 11:34 Dose: 17 gm Prednisone (Deltasone -) 30 mg PO DAILY [facility] - Objective Vital Signs: Vital Signs Temperature 98.2 F 03/03/17 06:36 Pulse Rate 88 03/03/17 06:36 Respiratory Rate 20 03/03/17 06:36 Blood Pressure 122/75 03/03/17 06:36 O2 Sat by Pulse Oximetry (%) 97 03/02/17 21:00 Constitutional: Yes: No Distress, Calm Eyes: Yes: Conjunctiva Clear HENT: Yes: Atraumatic Neck: Yes: Supple Cardiovascular: Yes: Regular Rate and Rhythm Respiratory: Yes: CTA Bilaterally, Other (L chest tube) Gastrointestinal: Yes: Soft. No: Distention, Tenderness Genitourinary: No: CVA Tenderness - Left, CVA Tenderness - Right Musculoskeletal: No: Joint Stiffness, Joint Swelling Extremities: No: Cold, Cool, Cyanosis Edema: No Integumentary: No: Rash, Venous Stasis Changes Neurological: Yes: WNL, Alert, Oriented ...Motor Strength: WNL Psychiatric: Yes: WNL, Alert, Oriented. No: Agitated, Suicidal Ideation Labs: CBC, BMP 03/02/17 06:50 03/02/17 06:50 INR, PTT INR 0.96 (0.82-1.09) 02/14/17 07:45 - ....Imaging Other: Report Reviewed Assessment/Plan Spontaneous Pneumothorax after coughing spell at home advanced COPD O2 dep Chronic Hypoxic Respiratory Failure +Troponins, f/u by cardiology, stress test negative, echo no significant changes high WBC on steroids s/p VATs, pneumothorax and sq emphysema, improving; chest tube management per pulm and CT sx - if Heimlich valve in today pt could go home - see above d/w pulm and pt and staff - cardiac and pulm f/u; CT Sx f/u - po steroids per pulm - supplemental O2 - inhaled bronchodilators - DVT prophylaxis - analgesics prn, miralax prn - f/u labs incentive spirometry f/u CXR falls PFX d/w pt do not get OOB alone, ask for help if needs OOB d/w pt and staff t time 60 min
--- NOTE | 2017-03-03 15:29 | PN ---
Progress Note (short form) - Note Progress Note: Pt without complaints today. Vital Signs Period Temp Pulse Resp BP Sys/Stringer Pulse Ox Last 24 Hr 97.7 F-98.3 F 77-100 18-20 115-137/57-81 96-97 chest tube-no drainage, x 2 days. GEN: appears comfortable left chest: No air leak with cough. Chest tube connected to heimlich valve. Since no drainage was noted end of the heimlich value was left to air. chest tube dressing c/d/i. CXR: 03/03: tiny small left apical/medial pntx, SQ emphysema, CT in place CXR: 03/02: ?left apical pntx, SQ emphysema A/P: Left VATS, pneumolysis, CT placment Placed heimlich valve today and pt to be discharged to home with VNS She is to return to Dr. Hernandez's office in two weeks, call to schedule an appointment and have outpt xray obtained prior to office visit. No baths, sponge bath only D/w Dr. Hernandez
--- NOTE | 2017-03-03 16:41 | DS ---
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 s/p VATs Hospital Course: improved with above; iv sterids stress doses pre and postop; DC home with chest tube with Heimlich valve; f/u as advised. Condition: Improved - Instructions Diet, Activity, Other Instructions: VNS for Heimlich valve care/wound care. DO NOT COVER OR CLOSE THE HEIMLICH VALVE, WILL DEFEAT THE PURPOSE AND CREATE A TENSION PNEUMOTHORAX Dry dressing to left chest. Keep incisions clean/dry. Sponge bath only, no baths. Please call Dr. Hernandez's office to schedule outpatient xray prior to office visit in 2 weeks. Regular diet f/u with pulmonary and PCP in 1-2 weeks Referrals: Adalid James MD [Primary Care Provider] - Isacc Hernandez MD [Staff Physician] - La Burrell [Staff Physician] - Disposition: VNS/HOME HEALTH CARE - Home Medications Comprehensive Discharge Medication List: Ambulatory Orders Albuterol Sulfate Inhaler - [Ventolin HFA Inhaler -] 2 puff IH Q4H 09/11/15 Atorvastatin Ca [Lipitor] 20 mg PO HS 02/14/17 Azelastine/Fluticasone [Dymista Nasal [place]] 23 gm NS BID 02/14/17 BUPROPion HCL "SR" [Wellbutrin Sr -] 150 mg PO DAILY 02/14/17 Budesonide/Formeterol Fumarate [SYMBICORT 160/4.5mcg -] 2 inh PO BID 02/14/17 Cetirizine HCl [Zyrtec -] 10 mg PO DAILY 02/14/17 Cyclosporine [Restasis] 1 each OP BID 02/14/17 Montelukast Na [Singulair -] 10 mg PO HS 02/14/17 Acetaminophen [Tylenol .Regular Strength -] 325 mg PO Q6H PRN #0 tablet Albuterol 0.083% Nebulizer [place] [Ventolin 0.083% Nebulizer Soln -] 1 amp NEB Q4H PRN #0 amp 03/03/17 Albuterol 2.5/Ipratropium 0.5 [Duoneb -] 1 amp NEB TIDR amp 03/03/17 Aspirin Coated [Ecotrin -] 81 mg PO DAILY tablet 03/03/17 Oxycodone HCl [Roxicodone -] 5 mg PO Q8H PRN #30 tablet MDD 3 03/03/17 Polyethylene Glycol 3350 [Miralax 119 gm Btl -] 17 gm PO DAILY bottle 03/03/17 Prednisone [Deltasone -] 30 mg PO DAILY tablet 03/03/17
[2017-03-03] MEDS: ATORVASTATIN CA 20 MG TABLET (FP) PO SCH (21:46)
[2017-03-03] MEDS: MONTELUKAST NA 10 MG TABLET PO SCH (21:46)
[2017-03-04] MEDS: ALBUTEROL SO4 2.5/IPRATROPIUM 0.5 INH SOL 3 ML VIAL.NEB. NEB SCH (06:10)
[2017-03-04] MEDS: oxyCODONE HCL 5 MG TABLET PO PRN ×2 (06:18→11:52)
[2017-03-04] MEDS: ACETAMINOPHEN 325 MG TABLET (FP) PO PRN ×2 (06:19→11:53)
[2017-03-04] MEDS ORDERED: PT OWN MED DRAWER 7, Y5N ONE (09:33)
[2017-03-04] MEDS: PANTOPRAZOLE 20 MG TABLET (FP) PO SCH (09:47)
--- NOTE | 2017-03-04 09:47 | PN ---
Progress Note (short form) - Note Progress Note: Had pain around the CT last night, better this AM. Heimlich valve attached. CXR: No PTX / basilar atelectasis Intake & Output 03/01/17 03/02/17 03/03/17 03/04/17 23:59 23:59 23:59 23:59 Intake Total 1520 1040 1760 100 Output Total 40 20 5 Balance 1480 1020 1755 100 Last Vital Signs Temp Pulse Resp BP Pulse Ox 98.6 F 89 20 126/68 96 03/04/17 06:07 03/04/17 06:07 03/04/17 06:07 03/04/17 06:07 03/03/17 10:30 Active Medications Acetaminophen (Tylenol -) 650 mg PO Q6H PRN PRN Reason: FEVER OR PAIN Last Admin: 03/03/17 17:57 Dose: 650 mg Acetaminophen (Tylenol -) 325 mg PO Q6H PRN PRN Reason: PAIN Last Admin: 03/04/17 06:19 Dose: 325 mg Albuterol Sulfate (Ventolin 0.083% Nebulizer Soln -) 1 amp NEB Q4H PRN PRN Reason: SHORT OF BREATH/WHEEZING Albuterol/Ipratropium (Duoneb -) 1 amp NEB TIDR [facility] Last Admin: 03/04/17 06:10 Dose: 1 amp Aspirin (Ecotrin -) 81 mg PO DAILY [facility] Last Admin: 03/03/17 09:53 Dose: 81 mg Atorvastatin Calcium (Lipitor -) 20 mg PO [facility] Last Admin: 03/03/17 21:46 Dose: 20 mg Budesonide/Formoterol Fumarate (Symbicort 160/4.5mcg -) 2 puff IH BID [facility] Last Admin: 03/03/17 21:47 Dose: 2 puff Bupropion HCl (Wellbutrin Xl -) 150 mg PO DAILY [facility] Last Admin: 03/03/17 09:53 Dose: 150 mg Enoxaparin Sodium (Lovenox -) 40 mg SQ DAILY [facility] Last Admin: 03/03/17 09:52 Dose: 40 mg Loratadine (Claritin -) 10 mg PO DAILY [facility] Last Admin: 03/03/17 09:53 Dose: 10 mg Montelukast Sodium (Singulair -) 10 mg PO [facility] Last Admin: 03/03/17 21:46 Dose: 10 mg Non-Formulary Medication (Azelastine/Fluticasone [Dymista Nasal [place]]) 23 gm NS BID [facility] Non-Formulary Medication (Cyclosporine [Restasis]) 1 each OP BID [facility] Oxycodone HCl (Roxicodone -) 5 mg PO Q6H PRN PRN Reason: PAIN Last Admin: 03/04/17 06:18 Dose: 5 mg Pantoprazole Sodium (Protonix -) 20 mg PO DAILY [facility] Last Admin: 03/03/17 09:52 Dose: 20 mg Polyethylene Glycol (Miralax (For Daily Use) -) 17 gm PO DAILY [facility] Last Admin: 03/03/17 11:34 Dose: 17 gm Prednisone (Deltasone -) 30 mg PO DAILY [facility] Gen: Awake and alert, NAD Neck: no stridor, Less subcutaneous emphysema Heart: RRR Lung: diffuse crackles Abd: soft, nontender Ext: no edema Chest tube: (-) air leak Problem List - Problems (1) Pneumothorax Code(s): J93.9 - PNEUMOTHORAX, UNSPECIFIED Qualifiers: Pneumothorax type: other pneumothorax Qualified Code(s): J93.83 - Other pneumothorax; J93.8 - Other pneumothorax and air leak (2) COPD exacerbation Code(s): J44.1 - CHRONIC OBSTRUCTIVE PULMONARY DISEASE W (ACUTE) EXACERBATION (3) Chest pain Code(s): R07.9 - CHEST PAIN, UNSPECIFIED (4) Elevated troponin Code(s): R74.8 - ABNORMAL LEVELS OF OTHER SERUM ENZYMES A/P Spontaneous Pneumothorax Diffuse Subcutaneous Emphysema COPD Chronic Hypoxic Respiratory Failure MGUS +Troponins - Encouraged patient Incentive Spirometry at home - Prednisone taper - BD TX - DVT prophylaxis - D/C planning Dr Arana
[2017-03-04] MEDS: ASPIRIN COATED 81 MG TABLET.EC PO SCH (09:48)
[2017-03-04] MEDS: LORATADINE 10 MG TABLET PO SCH (09:48)
[2017-03-04] MEDS: BUDESONIDE/FORMETEROL FUMARATE 160/4.5 mcg INHALER IH SCH (09:49)
[2017-03-04] MEDS: ENOXAPARIN NA (PORCINE) 40 MG/0.4 ML DISP.SYRIN SQ SCH (09:49)
[2017-03-04] MEDS: POLYETHYLENE GLYCOL 3350 119 GM BTL PO SCH (09:49)
[2017-03-04 12:31] VITALS: BP 130/81; PULSE 78; TEMP 98.1
== END 2017-03-04 12:15 | disposition home health service (06) | DRG 163 ==
LOC: JER 06:31 → JERBED 10:51 → J4W 12:36 → J6S 02-22 23:26 → JICU 02-25 11:56 → J8W 02-28 13:51
PROVIDERS: ADMIT Internal Medicine; ATTEND Internal Medicine
PROC: 0W9B30Z Drainage of Left Pleural Cavity with Drainage Device, Percutaneous Approach (ICD-10-PCS; principal; 2017-02-14)
PROC: 0W9B30Z Drainage of Left Pleural Cavity with Drainage Device, Percutaneous Approach (ICD-10-PCS; 2017-02-24)
PROC: 0BNG4ZZ Release Left Upper Lung Lobe, Percutaneous Endoscopic Approach (ICD-10-PCS; 2017-02-25)
PROC: 0WH Anatomical Regions, General, Insertion (ICD-10-PCS; 2017-02-25)
PROC: 0W9B30Z Drainage of Left Pleural Cavity with Drainage Device, Percutaneous Approach (ICD-10-PCS; 2017-02-26)
DX: J93.83 Other pneumothorax (principal); I21.4 Non-ST elevation (NSTEMI) myocardial infarction; I50.30 Unspecified diastolic (congestive) heart failure; J44.1 Chronic obstructive pulmonary disease with (acute) exacerbation; J96.10 Chronic respiratory failure, unspecified whether with hypoxia or hypercapnia; J98.11 Atelectasis; J94.8 Other specified pleural conditions; B37.0 Candidal stomatitis; K21.9 Gastro-esophageal reflux disease without esophagitis; M81.0 Age-related osteoporosis without current pathological fracture; E06.3 Autoimmune thyroiditis; E09.42 Drug or chemical induced diabetes mellitus with neurological complications with diabetic polyneuropathy; T38.0X5A Adverse effect of glucocorticoids and synthetic analogues, initial encounter; I11.0 Hypertensive heart disease with heart failure; R74.8 Abnormal levels of other serum enzymes; D47.2 Monoclonal gammopathy; Z99.81 Dependence on supplemental oxygen; Z87.891 Personal history of nicotine dependence; T81.82XA Emphysema (subcutaneous) resulting from a procedure, initial encounter; Y84.9 Medical procedure, unspecified as the cause of abnormal reaction of the patient, or of later complication, without mention of misadventure at the time of the procedure; E66.9 Obesity, unspecified; Z68.30 Body mass index [BMI] 30.0-30.9, adult; Z71.3 Dietary counseling and surveillance; J93.82 Other air leak
CPT/HCPCS: 32557; 36415; 71010-TC; 71250-TC; 78452-TC; 80048; 80053; 82550; 82553; 84439; 84443; 84484; 85025; 85027; 85610; 86850; 86900; 86901; 87040; 93005; 93010; 93017; 93306-TC; 94010; 94640; 99284-25; A9502; C1729; C1769; J1644

== ENCOUNTER 2017-07-21 16:15 | Emergency (ER) | payer OTHER ==
[2017-07-21 16:23] VITALS: BMI 33.2
--- NOTE | 2017-07-21 19:29 | PDOC ---
History of Present Illness - General Chief Complaint: Nasal Bleeding Stated Complaint: NOSE BLEED,BLOOD IN THE THROAT Time Seen by Provider: 07/21/17 19:10 - History of Present Illness Initial Comments: 07/21/17 19:19 CHIEF COMPLAINT: nosebleed HISTORY OF PRESENT ILLNESS: 62 yo F with hx of HTN and chronic asthma presents to ED with nosebleed x 2 days. Patient reports that last night she was walking in her kitchen when suddenly she started bleeding significantly and it continued for an hour. This afternoon she started bleeding again "with a lot of clots" and states that she now feels dizzy, lightheaded, and has palpitations. Patient reports she has had "chronic sinusitis" recently completed a course of azithromycin and is on her final day of a course of clindamycin. PAST MEDICAL HISTORY: Denies past medical history FAMILY HISTORY: Denies SOCIAL HISTORY:Denies tobacco, alcohol, illicit drug use. SURGICAL HISTORY: Denies ALLERGIES: PCN, fluoroquinolones REVIEW OF SYSTEMS General/Constitutional: Denies fever or chills. Denies weakness. HEENT: "two really bad nosebleeds since yesterday." Denies change in vision. Denies ear pain or discharge. Denies sore throat. Cardiovascular: Chronic shortness of breath secondary to asthma. Respiratory: Denies cough, wheezing, or hemoptysis. Gastrointestinal: Denies nausea, vomiting, diarrhea. Genitourinary: Denies dysuria, frequency, or change in urination. Musculoskeletal: Denies joint or muscle swelling or pain. Denies neck or back pain. Skin and breasts: Denies rash or easy bruising. Neurologic: Dizziness, lightheadedness. Denies headache loss of consciousness, or loss of sensation. PHYSICAL EXAM General Appearance: Well-appearing, appropriately dressed. No apparent distress. HEENT: No active bleeding. EOMI, PERRLA, normal ENT inspection, normal voice, TMs normal, pharynx normal. No conjunctival pallor. No photophobia, scleral icterus. Respiratory/Chest: Diffuse wheezing bilaterally. No crackles, rales, rhonchi, stridor, dullness Cardiovascular: RRR. S1, S2. No JVD, murmur, bradycardia, tachycardia. Vascular Pulses: Dorsalis-Pedis (R): 2+, Dorsalis-Pedis (L): 2+ Gastrointestinal/Abdominal: Normal bowel sounds. Abdomen soft, non-distended. No tenderness or rebound tenderness. No organomegaly, pulsatile mass, guarding , hernia, hepatomegaly, splenomegaly. Musculoskeletal/Extremities: Normal inspection. FROM of all extremities, normal capillary refill. No tenderness to extremities, pedal edema, swelling, erythema or deformity. Integumentary: Appropriate color, dry, warm. No cyanosis, erythema, jaundice or rash Neurologic: loan manager II-XII intact. Fully oriented, alert. Appropriate mood/affect. Motor strength 5/5. No appreciable EOM palsy, facial droop or sensory deficit. Past History - Past Medical History Allergies/Adverse Reactions: Allergies Allergy/AdvReac Type Severity Reaction Status Date / Time Penicillins Allergy Intermediate Rash Verified 07/21/17 16:23 fluoroquinolones Allergy Severe Difficulty Uncoded 07/21/17 16:23 Breathing Home Medications: Ambulatory Orders Albuterol Sulfate Inhaler - [Ventolin HFA Inhaler -] 2 puff IH Q4H 09/11/15 BUPROPion HCL "SR" [Wellbutrin Sr -] 150 mg PO DAILY 02/14/17 Budesonide/Formeterol Fumarate [SYMBICORT 160/4.5mcg -] 2 inh PO BID 02/14/17 Cetirizine HCl [Zyrtec -] 10 mg PO DAILY 02/14/17 Cyclosporine [Restasis] 1 each OP BID 02/14/17 Montelukast Na [Singulair -] 10 mg PO HS 02/14/17 Acetaminophen [Tylenol .Regular Strength -] 325 mg PO Q6H PRN #0 tablet Albuterol 0.083% Nebulizer Yadira [Ventolin 0.083% Nebulizer Soln -] 1 amp NEB Q4H PRN #0 amp 03/03/17 Albuterol 2.5/Ipratropium 0.5 [Duoneb -] 1 amp NEB TIDR amp 03/03/17 Aspirin Coated [Ecotrin -] 81 mg PO DAILY tablet 03/03/17 Polyethylene Glycol 3350 [Miralax 119 gm Btl -] 17 gm PO DAILY bottle 03/03/17 Prednisone [Deltasone -] 20 mg PO DAILY 07/21/17 Asthma: Yes Cancer: No Cardiac Disorders: No CVA: No COPD: No CHF: No Diabetes: Yes (steroid induced pre-diabetic) GI Disorders: No Disorders: No HTN: No Hypercholesterolemia: No Liver Disease: No Seizures: No Thyroid Disease: No Other medical history: PNEUMOTHORAX L - Surgical History Abdominal Surgery: No Appendectomy: No Cardiac Surgery: No Cholecystectomy: No Lung Surgery: No Neurologic Surgery: No Orthopedic Surgery: Yes (numerous foot surgeries) - Immunization History Immunization Up to Date: No - Suicide/Smoking/Psychosocial Hx Smoking History: Never smoked Have you smoked in the past 12 months: No Number of Cigarettes Smoked Daily: 1 If you are a former smoker, when did you quit?: 2014 'Breaking Loose' booklet given: 02/27/16 Hx Alcohol Use: No Drug/Substance Use Hx: No Substance Use Type: None Hx Substance Use Treatment: No *Physical Exam - Vital Signs Last Vital Signs Temp Pulse Resp BP Pulse Ox 115 H 20 142/89 96 07/21/17 16:20 07/21/17 16:20 07/21/17 16:20 07/21/17 16:20 ED Treatment Course - LABORATORY CBC & Chemistry Diagram: 07/21/17 19:50 07/21/17 19:50 Medical Decision Making - Medical Decision Making 07/21/17 21:40 62 yo F with hx of HTN and chronic asthma presents to ED with nosebleed x 2 days. VS remarkable for HR 115. -EKG -CBC, CMP, PT/PTT/INR -CXR Patient with diffuse wheezing b/l. Duoneb given Repeat HR now 80. Patient still with wheezing b/l. 1 mg Mg sulfate given. Patient reassessed; at this time she reports feeling better and is anxious to go home. Patient denies any SOB, difficulty breathing, nasal bleeding, palpitations, or any symptoms at this time. Advised patient to f/u with PCP Ashanti and ENT Ye this week. Patient verbalized understanding and agrees to plan. *DC/Admit/Observation/Transfer Diagnosis at time of Disposition: Epistaxis - Discharge Dispostion Admit: No - Referrals Referrals: Amarjit Burrell MD [Primary Care Provider] - Keenan Belcher MD [Staff Physician] - Adalid James MD [Staff Physician] - - Patient Instructions Printed Discharge Instructions: DI for Nosebleed Additional Instructions: As discussed, please use a humidifier to decrease your potential for bleeding. Follow up with Jacob Dodd, and Ye this week for further monitoring and evaluation. If you develop any severe headache, dizziness, palpitations, fever, weakness, or any new or worsening symptoms, please return to the ER.
[2017-07-21] MEDS ORDERED: ALBUTEROL SO4 2.5/IPRATROPIUM 0.5 INH SOL 3 ML VIAL.NEB. NEB ONE ×2 (19:30→19:43)
[2017-07-21 20:27] LABS: INR 0.91 (0.82-1.09); PROTHROMBIN TIME (PATIENT) 10.3 SEC (9.98-11.88)
[2017-07-21 20:34] LABS: BASOPHIL 0.4 % (0-2.0); EOSINOPHIL 0.2 % (0-4.5); MCH 24.2 pg (25.7-33.7); MCHC 32.3 g/dl (32.0-36.0); MEAN PLT VOLUME 8.1 fl (7.5-11.1); NEUTROPHILS 82.3 % (42.8-82.8); PLATELET COUNT 363 K/MM3 (134-434); RDW 18.2 % (11.6-15.6)
[2017-07-21 20:52] LABS: ALBUMIN 3.4 g/dl (3.4-5.0); ANION GAP 7 (8-16); BILIRUBIN,TOTAL 0.2 mg/dL (0.2-1.0); CALCIUM 8.7 mg/dL (8.5-10.1); CO2 30 mmol/L (21-32); CREATININE 0.9 mg/dL (0.55-1.02); GLUCOSE,RANDOM 176 mg/dL (74-106); SGOT/AST 23 U/L (15-37); SGPT/ALT 38 U/L (12-78); TOT PROT 6.6 g/dl (6.4-8.2)
[2017-07-21 20:53] LABS: ALK PHOS 49 U/L (45-117)
[2017-07-21] MEDS ORDERED: MAGNESIUM SULF 50% (8.12 MEQ/2 ML-1 GM VIAL) ONE (21:07)
[2017-07-21 21:14] VITALS: BP 140/94; PULSE 82
[2017-07-21 21:25] VITALS: TEMP 97.5
--- NOTE | 2017-07-22 13:00 | EKG ---
Test Reason : Blood Pressure : / mmHG Vent. Rate : 086 BPM Atrial Rate : 086 BPM P-R Int : 146 ms QRS Dur : 074 ms QT Int : 380 ms P-R-T Axes : 042 032 066 degrees QTc Int : 454 ms NORMAL SINUS RHYTHM NORMAL ECG WHEN COMPARED WITH ECG OF 14-FEB-2017 10:06, NO SIGNIFICANT CHANGE WAS FOUND Confirmed by TWAN HIGGINS MD ([id number]) on 07/22/2017 12:59:44 PM Referred By: Confirmed By:TWAN HIGGINS MD
== END 2017-07-21 21:58 | disposition home or self-care (01) ==
LOC: JER 16:15
PROC: 3E0F7GC Introduction of Other Therapeutic Substance into Respiratory Tract, Via Natural or Artificial Opening (ICD-10-PCS; principal; 2017-07-21)
DX: R04.0 Epistaxis (principal); J45.909 Unspecified asthma, uncomplicated; E09.9 Drug or chemical induced diabetes mellitus without complications; T38.0X5A Adverse effect of glucocorticoids and synthetic analogues, initial encounter; Y92.038 Other place in apartment as the place of occurrence of the external cause; I10 Essential (primary) hypertension; Z79.82 Long term (current) use of aspirin
CPT/HCPCS: 36415; 71020-TC; 80053; 85025; 85610; 85730; 93005; 93010; 99283-25

== ENCOUNTER 2017-07-22 15:07 | Emergency (ER) | payer OTHER ==
[2017-07-22 15:41] VITALS: BP 118/89; PULSE 96; TEMP 98.3; BMI 32.1
--- NOTE | 2017-07-22 15:46 | PDOC ---
History of Present Illness <Jadiel Guzmán - Last Filed: 07/22/17 16:21> - General History Source: Patient Exam Limitations: No Limitations - History of Present Illness Initial Comments: 07/22/17 16:29 62 y/o F with a PMHx of asthma presents to the ED with nasal bleeding today. Patient reports 3 different episodes of nasal bleeding. She states it was a lot of blood and became nervous. She is not on blood thinners. She has no other complaints. She denies fever, chills. Denies headache, dizziness. Denies nausea , vomiting, diarrhea. <Marlee Mon - Last Filed: 07/22/17 16:30> - General Chief Complaint: Nasal Bleeding Stated Complaint: NASAL BLEED Time Seen by Provider: 07/22/17 15:44 Past History - Past Medical History Asthma: Yes Cancer: No Cardiac Disorders: No CVA: No COPD: No CHF: No Diabetes: Yes (steroid induced pre-diabetic) GI Disorders: No Disorders: No HTN: No Hypercholesterolemia: No Liver Disease: No Seizures: No Thyroid Disease: No - Surgical History Abdominal Surgery: No Appendectomy: No Cardiac Surgery: No Cholecystectomy: No Lung Surgery: No Neurologic Surgery: No Orthopedic Surgery: Yes (numerous foot surgeries) - Immunization History Immunization Up to Date: No - Suicide/Smoking/Psychosocial Hx Smoking History: Never smoked Have you smoked in the past 12 months: No Number of Cigarettes Smoked Daily: 1 If you are a former smoker, when did you quit?: 2014 Information on smoking cessation initiated: No 'Breaking Loose' booklet given: 02/27/16 Hx Alcohol Use: No Drug/Substance Use Hx: No Substance Use Type: None Hx Substance Use Treatment: No <Jadiel Guzmán - Last Filed: 07/22/17 16:21> <Marlee Mon - Last Filed: 07/22/17 16:30> - Past Medical History Allergies/Adverse Reactions: Allergies Allergy/AdvReac Type Severity Reaction Status Date / Time Penicillins Allergy Intermediate Rash Verified 07/22/17 15:32 fluoroquinolones Allergy Severe Difficulty Uncoded 07/22/17 15:32 Breathing Home Medications: Ambulatory Orders Albuterol Sulfate Inhaler - [Ventolin HFA Inhaler -] 2 puff IH Q4H 09/11/15 BUPROPion HCL "SR" [Wellbutrin Sr -] 150 mg PO DAILY 02/14/17 Budesonide/Formeterol Fumarate [SYMBICORT 160/4.5mcg -] 2 inh PO BID 02/14/17 Cetirizine HCl [Zyrtec -] 10 mg PO DAILY 02/14/17 Cyclosporine [Restasis] 1 each OP BID 02/14/17 Montelukast Na [Singulair -] 10 mg PO HS 02/14/17 Acetaminophen [Tylenol .Regular Strength -] 325 mg PO Q6H PRN #0 tablet Albuterol 0.083% Nebulizer Yadira [Ventolin 0.083% Nebulizer Soln -] 1 amp NEB Q4H PRN #0 amp 03/03/17 Albuterol 2.5/Ipratropium 0.5 [Duoneb -] 1 amp NEB TIDR amp 03/03/17 Aspirin Coated [Ecotrin -] 81 mg PO DAILY tablet 03/03/17 Polyethylene Glycol 3350 [Miralax 119 gm Btl -] 17 gm PO DAILY bottle 03/03/17 Prednisone [Deltasone -] 20 mg PO DAILY 07/21/17 Review of Systems - Review of Systems Comments:: 07/22/17 16:29 A complete review of 10 out of 10 review of systems is taken and is negative apart from what is previously mentioned below and in the HPI. <Marlee Mon - Last Filed: 07/22/17 16:30> *Physical Exam - Vital Signs Last Vital Signs Temp Pulse Resp BP Pulse Ox 98.3 F 96 H 20 118/89 95 07/22/17 15:32 07/22/17 15:32 07/22/17 15:32 07/22/17 15:32 07/22/17 15:32 <Jadiel Guzmán - Last Filed: 07/22/17 16:21> - Vital Signs Last Vital Signs Temp Pulse Resp BP Pulse Ox 98.3 F 96 H 20 118/89 95 07/22/17 15:32 07/22/17 15:32 07/22/17 15:32 07/22/17 15:32 07/22/17 15:32 - Physical Exam Comments: 07/22/17 16:29 Vitals: Triage Vital signs reviewed General Appearance: no acute distress, well nourished well developed Head: Atraumatic Eyes: Pupils equal reactive round, extraocular movement intact Nose: Inside of right nostril small vessel with evidence of recent bleed, but no active bleeding. Neck: Supple; No Nucal rigidity Chest Wall: Nontender Cardiac: Regular rate and rhythm, no murmurs, no rubs, no gallops Lungs: Slight wheeze bilaterally, good air movement bilaterally Abdomen: Soft, non distended, normal bowel sounds, non tender to palpation Extremities: Full range of motion to all extremities, no cyanosis, clubbing, or edema Skin: Warm and dry, no rashes or lesions, no rash, no petechiae Neuro: AOX3; Cranial Nerves 2-12 grossly intact, Strength intact to all extremities, Sensation intact to all extremities Psych: normal mood, normal affect <Marlee Mon - Last Filed: 07/22/17 16:30> *DC/Admit/Observation/Transfer - Discharge Dispostion Admit: No <Jadiel Guzmán - Last Filed: 07/22/17 16:21> - Attestations Scribe Attestion: 07/22/17 16:30 Documentation prepared by Marlee Mon, acting as vice president medical affairs for Jadiel Guzmán MD. <Marlee Mon - Last Filed: 07/22/17 16:30> Diagnosis at time of Disposition: Epistaxis, recurrent, Epistaxis - Referrals Referrals: Amarjit Burrell MD [Primary Care Provider] - - Patient Instructions Printed Discharge Instructions: Nosebleed Additional Instructions: Follow-up with your ENT on Wednesday. If rebleeding occurs apply pressure for 30 minutes. Do not blow nose to not drink though a straw. Return to ED for any concerns
[2017-07-22] MEDS ORDERED: SILVER NITRATE 75% APPLIC STCK 1 PKT EACH TP ONE (16:18)
[2017-07-22] MEDS ORDERED: SILVER NITRATE 75% APPLIC STCK 1 PKT EACH ONE (16:31)
== END 2017-07-22 16:49 | disposition home or self-care (01) ==
LOC: JER 15:07
PROC: 0W3Q7ZZ Control Bleeding in Respiratory Tract, Via Natural or Artificial Opening (ICD-10-PCS; principal; 2017-07-22)
DX: R04.0 Epistaxis (principal); J45.909 Unspecified asthma, uncomplicated; E09.9 Drug or chemical induced diabetes mellitus without complications; T38.0X5A Adverse effect of glucocorticoids and synthetic analogues, initial encounter; Y92.038 Other place in apartment as the place of occurrence of the external cause; Z79.84 Long term (current) use of oral hypoglycemic drugs
CPT/HCPCS: 99281-25

== ENCOUNTER 2017-08-23 12:34 | Inpatient (IN) | payer OTHER ==
[2017-08-23 12:43] VITALS: BMI 32.1
--- NOTE | 2017-08-23 14:17 | PDOC ---
History of Present Illness <Marycarmen Ibarra - Last Filed: 08/23/17 18:07> - General History Source: Patient Exam Limitations: No Limitations - History of Present Illness Initial Comments: 08/23/17 16:30 The patient is a 62 year old female with a significant PMH of a recent left lung collapse (s/p 3 chest tubes), asthma/COPD (steroid dependent, uses O2 prn) , former smoker, GERD, osteoporosis, Hashimotos thyroiditis, and MGUS who presents to the emergency department after being sent in by Dr. James with shortness of breath beginning approximately five days ago. The patient notes that she even feels short of breath with minimal exertion. The patient reports coughing yellow sputum secondary to her shortness of breath. She reports intermittently self-checking her O2 saturation for the past five days and noting it was low. The patient also reports being prescribed antibiotics last Wednesday after being evaluated for an infection. The patient denies chest pain, headache and dizziness. Denies fever, chills, nausea, vomit, diarrhea and constipation. Denies dysuria, frequency, urgency and hematuria. Allergies: NKA Past surgical history: Chest tube x3 Social history: Former smoker (15 years, ppd). No reported alcohol or drug abuse. PCP: Dr. Lio Burrell <Benjamin Frances - Last Filed: 08/23/17 18:43> - General Chief Complaint: Shortness of Breath Stated Complaint: admission DIFFICULTY BREATHING Time Seen by Provider: 08/23/17 14:17 Past History - Past Medical History Asthma: Yes Cancer: No Cardiac Disorders: No CVA: No COPD: Yes CHF: No Diabetes: Yes (steroid induced pre-diabetic) GI Disorders: No Disorders: No HTN: No Hypercholesterolemia: No Liver Disease: No Seizures: No Thyroid Disease: No - Surgical History Abdominal Surgery: No Appendectomy: No Cardiac Surgery: No Cholecystectomy: No Lung Surgery: No Neurologic Surgery: No Orthopedic Surgery: Yes (numerous foot surgeries) - Immunization History Immunization Up to Date: No - Suicide/Smoking/Psychosocial Hx Smoking History: Former smoker Have you smoked in the past 12 months: No Number of Cigarettes Smoked Daily: 1 If you are a former smoker, when did you quit?: 2014 Information on smoking cessation initiated: No 'Breaking Loose' booklet given: 02/27/16 Hx Alcohol Use: No Drug/Substance Use Hx: No Substance Use Type: None Hx Substance Use Treatment: No <Marycarmen Ibarra - Last Filed: 08/23/17 18:07> <Benjamin Frances - Last Filed: 08/23/17 18:43> - Past Medical History Allergies/Adverse Reactions: Allergies Allergy/AdvReac Type Severity Reaction Status Date / Time Penicillins Allergy Intermediate Rash Verified 08/23/17 12:39 fluoroquinolones Allergy Severe Difficulty Uncoded 08/23/17 12:39 Breathing Home Medications: Ambulatory Orders Albuterol Sulfate Inhaler - [Ventolin HFA Inhaler -] 2 puff IH Q4H 09/11/15 BUPROPion HCL "SR" [Wellbutrin Sr -] 150 mg PO DAILY 02/14/17 Budesonide/Formeterol Fumarate [SYMBICORT 160/4.5mcg -] 2 inh PO BID 02/14/17 Cetirizine HCl [Zyrtec -] 10 mg PO DAILY 02/14/17 Cyclosporine [Restasis] 1 each OP BID 02/14/17 Montelukast Na [Singulair -] 10 mg PO HS 02/14/17 Acetaminophen [Tylenol .Regular Strength -] 325 mg PO Q6H PRN #0 tablet Albuterol 0.083% Nebulizer Yadira [Ventolin 0.083% Nebulizer Soln -] 1 amp NEB Q4H PRN #0 amp 03/03/17 Albuterol 2.5/Ipratropium 0.5 [Duoneb -] 1 amp NEB TIDR amp 03/03/17 Aspirin Coated [Ecotrin -] 81 mg PO DAILY tablet 03/03/17 Polyethylene Glycol 3350 [Miralax 119 gm Btl -] 17 gm PO DAILY bottle 03/03/17 Prednisone [Deltasone -] 20 mg PO DAILY 07/21/17 Review of Systems - Review of Systems Comments:: 08/23/17 16:29 GENERAL/CONSTITUTIONAL: No fever or chills. No weakness. HEAD, EYES, EARS, NOSE AND THROAT: No change in vision. No ear pain or discharge. No sore throat. CARDIOVASCULAR: No chest pain or shortness of breath. RESPIRATORY: (+) Shortness of breath. (+) Cough. No wheezing, or hemoptysis. GASTROINTESTINAL: No nausea, vomiting, diarrhea or constipation. GENITOURINARY: No dysuria, frequency, or change in urination. MUSCULOSKELETAL: No joint or muscle swelling or pain. No neck or back pain. SKIN: No rash NEUROLOGIC: No headache, vertigo, loss of consciousness, or change in strength/ sensation. ENDOCRINE: No increased thirst. No abnormal weight change. HEMATOLOGIC/LYMPHATIC: No anemia, easy bleeding, or history of blood clots. ALLERGIC/IMMUNOLOGIC: No hives or skin allergy. <Benjamin Frances - Last Filed: 08/23/17 18:43> *Physical Exam - Vital Signs Last Vital Signs Temp Pulse Resp BP Pulse Ox 97.8 F 114 H 22 121/91 95 08/23/17 12:40 08/23/17 12:40 08/23/17 12:40 08/23/17 12:40 08/23/17 12:40 <Marycarmen Ibarra - Last Filed: 08/23/17 18:07> - Vital Signs Last Vital Signs Temp Pulse Resp BP Pulse Ox 97.8 F 114 H 22 121/91 95 08/23/17 12:40 08/23/17 12:40 08/23/17 12:40 08/23/17 12:40 08/23/17 12:40 - Physical Exam Comments: 08/23/17 16:28 GENERAL: (+) Speaking in 3-4 word sentences. Awake, alert, and fully oriented, in no acute distress HEAD: No signs of trauma EYES: PERRLA, EOMI, sclera anicteric, conjunctiva clear ENT: Auricles normal inspection, hearing grossly normal, nares patent, oropharynx clear without exudates. Moist mucosa NECK: Normal ROM, supple, no lymphadenopathy, JVD, or masses LUNGS: (+) Diffuse wheezing. (+) Decreased air entry. Breath sounds equal. No crackles, rales, or rhonchi. HEART: Regular rate and rhythm, normal S1 and S2, no murmurs, rubs or gallops ABDOMEN: Soft, nontender, normoactive bowel sounds. No guarding, no rebound. No masses EXTREMITIES: Normal range of motion, no edema. No clubbing or cyanosis. No cords, erythema, or tenderness NEUROLOGICAL: Cranial nerves II through XII grossly intact. Normal speech, normal gait SKIN: Warm, Dry, normal turgor, no rashes or lesions noted. <Benjamin Frances - Last Filed: 08/23/17 18:43> Heart Score/ECG Review #1 08/23/17 18:36 Vent rate 107 bpm Sinus tachycardia Otherwise normal ECG <Benjamin Frances - Last Filed: 08/23/17 18:43> ED Treatment Course - LABORATORY CBC & Chemistry Diagram: 08/23/17 14:58 08/23/17 15:40 <Marycarmen Ibarra - Last Filed: 08/23/17 18:07> - LABORATORY CBC & Chemistry Diagram: 08/23/17 14:58 08/23/17 15:40 - Medications Given in the ED: ED Medications Discontinued Medications Generic Name Dose Route Start Last Admin Trade Name Freq PRN Reason Stop Dose Admin Albuterol/Ipratropium 1 amp 08/23/17 14:26 08/23/17 16:11 Duoneb - NEB 08/23/17 14:27 1 amp ONCE ONE Administration Methylprednisolone Sodium Succinate 125 mg 08/23/17 14:26 08/23/17 16:11 Solu-Medrol - IVPUSH 08/23/17 14:27 125 mg ONCE ONE Administration - Consult/PCP Time Called: 17:30 Case discussed with personal care physician: Amarjit Burrell <Benjamin Frances - Last Filed: 08/23/17 18:43> *DC/Admit/Observation/Transfer - Discharge Dispostion Admit: Yes <Marycarmen Ibarra - Last Filed: 08/23/17 18:07> - Attestations Scribe Attestion: 08/23/17 16:29 Documentation prepared by Benjamin Frances, acting as clinical medical transcriptionist for Marycarmen Ibarra MD. <Benjamin Frances - Last Filed: 08/23/17 18:43> Diagnosis at time of Disposition: Asthma Qualifiers: Asthma severity: moderate Asthma persistence: persistent Asthma complication type: with acute exacerbation Qualified Code(s): J45.41 - Moderate persistent asthma with (acute) exacerbation - Discharge Dispostion Condition at time of disposition: Good - Referrals Referrals: Amarjit Burrell MD [Primary Care Provider] -
[2017-08-23] MEDS ORDERED: methylPREDNISolone NA SUCC 125 MG/2 ML VIAL IVPUSH ONE (14:26)
[2017-08-23] MEDS ORDERED: ALBUTEROL SO4 2.5/IPRATROPIUM 0.5 INH SOL 3 ML VIAL.NEB. NEB ONE ×2 (14:26→15:42)
--- NOTE | 2017-08-23 15:59 | PN ---
Teaching Attending Note Name of Resident: Jakob Cheney ATTENDING PHYSICIAN STATEMENT I saw and evaluated the patient. I reviewed the resident's note and discussed the case with the resident. I agree with the resident's findings and plan as documented. PULMONARY IMP MODERATE CHRONIC PERSISTENT ASTHMA WITH ACUTE EXACERBATION ASTHMA/COPD SINUSITIS CHF PERIPHERAL NEUROPATHY GERD HYPOTHYROIDISM PLAN IV STEROIDS INHALED BRONCHODILATORS O2 DALIRESP ZITHROMAX 500mq PO TIW MONITOR PEAK FLOW DR GRAHAM Problem List - Problems (1) Asthma exacerbation Code(s): J45.901 - UNSPECIFIED ASTHMA WITH (ACUTE) EXACERBATION (2) COPD exacerbation Code(s): J44.1 - CHRONIC OBSTRUCTIVE PULMONARY DISEASE W (ACUTE) EXACERBATION (3) Respiratory distress Code(s): R06.00 - DYSPNEA, UNSPECIFIED (4) Moderate persistent chronic asthma with acute exacerbation Code(s): J45.41 - MODERATE PERSISTENT ASTHMA WITH (ACUTE) EXACERBATION
[2017-08-23 16:27] LABS: BASOPHIL 0.5 % (0-2.0); EOSINOPHIL 0.1 % (0-4.5); MCHC 31.7 g/dl (32.0-36.0); MEAN CELL VOLUME 75.5 fl (80-96); MEAN PLT VOLUME 7.6 fl (7.5-11.1); NEUTROPHILS 86.2 % (42.8-82.8); PLATELET COUNT 357 K/MM3 (134-434); RDW 18.1 % (11.6-15.6); WHITE BLOOD COUNT 15.7 K/mm3 (4.0-10.0)
--- NOTE | 2017-08-23 16:48 | CON.PULM ---
Consult Consult Specialty:: Pulmonary Reason for Consultation:: Asthma - History of Present Illness Chief Complaint: Shortness of breath History of Present Illness: The patient is a 62 yo f w/ PMH asthma/COPD, recurrent sinusitis and CHF who was sent to the ED by Dr. James for a 1 week history of SOB, chest tightness and productive cough. The patient states that 1 week ago, she began to experience a cough productive of yellowish sputum without blood. Since then, the cough began to be associated with wheezing and shortness of breath which became progressively worse. The patient went to Dr. James, who prescribed her 500mg azithromycin daily for 7 days. That patient took this medication as prescribed, but returned to Dr. James's office after the shortness of breath continued to become worse. The patient states that she cannot move from one room to another room in her house without becoming winded. Patient denies chest pain, abdominal pain, fevers, chills or sick contacts. 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) Cardio/Vascular: Yes: CHF (Diastolic) Pulmonary: Yes: Asthma, COPD Gastrointestinal: Yes: GERD Endocrine: Yes: Hypothyroidism - Alcohol/Substance Use Hx Alcohol Use: No - Smoking History Smoking history: Former smoker Have you smoked in the past 12 months: No Aproximately how many cigarettes per day: 1 If you are a former smoker, when did you quit?: 2014 - Social History History of Recent Travel: No Home Medications - Allergies Allergies/Adverse Reactions: Allergies Allergy/AdvReac Type Severity Reaction Status Date / Time Penicillins Allergy Intermediate Rash Verified 08/23/17 12:39 fluoroquinolones Allergy Severe Difficulty Uncoded 08/23/17 12:39 Breathing - Home Medications Home Medications: Ambulatory Orders Albuterol Sulfate Inhaler - [Ventolin HFA Inhaler -] 2 puff IH Q4H 09/11/15 BUPROPion HCL "SR" [Wellbutrin Sr -] 150 mg PO DAILY 02/14/17 Budesonide/Formeterol Fumarate [SYMBICORT 160/4.5mcg -] 2 inh PO BID 02/14/17 Cetirizine HCl [Zyrtec -] 10 mg PO DAILY 02/14/17 Cyclosporine [Restasis] 1 each OP BID 02/14/17 Montelukast Na [Singulair -] 10 mg PO HS 02/14/17 Acetaminophen [Tylenol .Regular Strength -] 325 mg PO Q6H PRN #0 tablet Albuterol 0.083% Nebulizer Yadira [Ventolin 0.083% Nebulizer Soln -] 1 amp NEB Q4H PRN #0 amp 03/03/17 Albuterol 2.5/Ipratropium 0.5 [Duoneb -] 1 amp NEB TIDR amp 03/03/17 Aspirin Coated [Ecotrin -] 81 mg PO DAILY tablet 03/03/17 Polyethylene Glycol 3350 [Miralax 119 gm Btl -] 17 gm PO DAILY bottle 03/03/17 Prednisone [Deltasone -] 20 mg PO DAILY 07/21/17 Review of Systems - Review of Systems Constitutional: denies: Chills, Fever, Malaise HENT: reports: Nasal Congestion. denies: Difficult Swallowing, Ear Pain, Hearing Loss, Throat Pain Cardiovascular: reports: Edema (swelling of feet for the past month), Shortness of Breath. denies: Chest Pain, Palpitations Respiratory: reports: Cough, SOB, SOB on Exertion. denies: Hemoptysis Gastrointestinal: denies: Abdominal Pain Physical Exam Vital Sings: Vital Signs Temperature 97.8 F 08/23/17 12:40 Pulse Rate 114 H 08/23/17 12:40 Respiratory Rate 22 08/23/17 12:40 Blood Pressure 121/91 08/23/17 12:40 O2 Sat by Pulse Oximetry (%) 95 08/23/17 12:40 Constitutional: Yes: Well Nourished, Calm. No: No Distress HENT: Yes: Atraumatic, Normocephalic Neck: Yes: Supple, Trachea Midline Cardiovascular: Yes: Regular Rate and Rhythm, S1, S2. No: JVD, Gallop, Murmur, Rub, S3, S4 Respiratory: Yes: Regular, Rhonchi (in all lung nolan), Other (prolonged expiratory phase) ...Breath Sounds: ANTONELLA Rhonchi, LLL Rhonchi, RUL Rhonchi, RML Rhonchi, RLL Rhonchi Labs: CBC, BMP 08/23/17 14:58 Assessment/Plan The Patient is a 62 yo f w/ PMH asthma/COPD and CHF who was sent to the ED by her threader for a cough and progressively worsening SOB which failed outpatient therapy. The patient has a severe persistent asthma and is currently on multiple bronchodilators as well as both inhaled and oral steroids and continues to have repeated infections and hospitalizations despite therapy. Patient currently only tachycardic, but afebrile at this time. #Persistant, productive cough 2/2 severe asthma vs infectious eitology -solu-medrol 60mg Q12h -spiriva 2 puffs BID -albuterol PRN for SOB -Sputum eosinophils -obtain baseline peak flow and monitor daily -DaliResp 500mcg daily -patient has refractory asthma and may benefit from additional medications or possibly invasive procedures
[2017-08-23 17:05] LABS: ALBUMIN 3.3 g/dl (3.4-5.0); ANION GAP 11 (8-16); CALCIUM 8.7 mg/dL (8.5-10.1); CO2 25 mmol/L (21-32); GLUCOSE,RANDOM 151 mg/dL (74-106); SGOT/AST 16 U/L (15-37); SGPT/ALT 35 U/L (12-78)
[2017-08-23 17:07] LABS: ALK PHOS 60 U/L (45-117); BILIRUBIN,TOTAL 0.4 mg/dL (0.2-1.0)
[2017-08-23] MEDS ORDERED: ALBUTEROL SO4 0.083% IH SOL 2.5 MG/3 ML VIAL.NEB. NEB ONE (18:19)
[2017-08-23] MEDS ORDERED: ACETAMINOPHEN 325 MG TABLET (FP) PO PRN (22:32)
[2017-08-23] MEDS ORDERED: ALBUTEROL SO4 0.083% IH SOL 2.5 MG/3 ML VIAL.NEB. NEB PRN (22:32)
--- NOTE | 2017-08-23 22:45 | HP ---
Admitting History and Physical - Primary Care Physician PCP: Amarjit Burrell - Admission Chief Complaint: SOB, Cough History of Present Illness: Pt with Hx/o COPD, ex smoker, started to feel SOB and coughing about a week ago ; she saw Dr. James and was started on Zithromax 500 mg DFaily X 7 Days. Pt was seen today on f/u and was referred to ER for worsening symptoms. 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) Cardiovascular: Yes: CHF (Diastolic) Pulmonary: Yes: Asthma, COPD Gastrointestinal: Yes: GERD Heme/Onc: Yes: Other (MGUS) Endocrine: Yes: Hypothyroidism - Smoking History Smoking history: Former smoker Have you smoked in the past 12 months: No Aproximately how many cigarettes per day: 1 If you are a former smoker, when did you quit?: 2014 - Alcohol/Substance Use Hx Alcohol Use: No - Social History History of Recent Travel: No Home Medications - Allergies Allergies/Adverse Reactions: Allergies Allergy/AdvReac Type Severity Reaction Status Date / Time Penicillins Allergy Intermediate Rash Verified 08/23/17 12:39 fluoroquinolones Allergy Severe Difficulty Uncoded 08/23/17 12:39 Breathing - Home Medications Home Medications: Ambulatory Orders Albuterol Sulfate Inhaler - [Ventolin HFA Inhaler -] 2 puff IH Q4H 09/11/15 BUPROPion HCL "SR" [Wellbutrin Sr -] 150 mg PO DAILY 02/14/17 Montelukast Na [Singulair -] 10 mg PO HS 02/14/17 Acetaminophen [Tylenol .Regular Strength -] 325 mg PO Q6H PRN #0 tablet Albuterol 0.083% Nebulizer Yadira [Ventolin 0.083% Nebulizer Soln -] 1 amp NEB Q4H PRN #0 amp 03/03/17 Albuterol 2.5/Ipratropium 0.5 [Duoneb -] 1 amp NEB TIDR amp 03/03/17 Polyethylene Glycol 3350 [Miralax 119 gm Btl -] 17 gm PO DAILY bottle 03/03/17 Prednisone [Deltasone -] 20 mg PO DAILY 07/21/17 Baclofen 10 mg PO BID 08/23/17 Budesonide/Formeterol Fumarate [SYMBICORT 80/4.5mcg -] 2 inh PO BID 08/23/17 Cetirizine HCl [Zyrtec -] 10 mg PO DAILY 08/23/17 Cyclosporine [Restasis] 1 each OP ASDIR 08/23/17 Famotidine [Pepcid] 40 mg PO DAILY 08/23/17 Fluticasone Prop 0.05% Nasal [Flonase -] 1 - 2 spray NS DAILY 08/23/17 Lorazepam 1 mg PO DAILY PRN 08/23/17 Naproxen [Naprosyn -] 500 mg PO BID 08/23/17 Nystatin Oral Suspension - [Nystatin Oral Susp 238482 Units/5 ML -] 5 ml PO BID 08/23/17 Review of Systems - Review of Systems Constitutional: denies: Chills, Fever Eyes: denies: Blurred Vision, Photophobia HENT: denies: Difficult Swallowing, Ear Discharge, Ear Pain, Epistaxis, Nasal Congestion Cardiovascular: denies: Chest Pain, Edema, Palpitations Respiratory: reports: Cough, SOB on Exertion, Wheezing. denies: Hemoptysis Gastrointestinal: denies: Abdominal Pain, Diarrhea, Vomiting Genitourinary: denies: Burning, Discharge, Dysuria Breasts: reports: Other (deferred) Musculoskeletal: denies: Back Pain, Joint Swelling Integumentary: denies: Blister, Bruising Neurological: denies: Change in LOC, Change in Speech, Confusion Endocrine: denies: Excessive Sweating, Intolerance to Heat Hematology/Lymphatic: denies: Easily Bruised, Excessive Bleeding Psychiatric: denies: Hallucinations, Panic Physical Examination Vital Signs: Vital Signs Temperature 98.3 F 08/23/17 21:00 Pulse Rate 95 H 08/23/17 21:00 Respiratory Rate 22 08/23/17 21:00 Blood Pressure 130/95 08/23/17 21:00 O2 Sat by Pulse Oximetry (%) 95 08/23/17 12:40 Constitutional: Yes: No Distress, Calm (breathing easier) Eyes: Yes: Conjunctiva Clear, EOM Intact HENT: Yes: Normocephalic. No: Hoarseness, Nasal Congestion, Thrush Neck: Yes: Trachea Midline. No: Lymphadenopathy Cardiovascular: Yes: Regular Rate and Rhythm, S1, S2 Respiratory: Yes: Regular, Rales, Rhonchi, Wheezes Gastrointestinal: Yes: Normal Bowel Sounds, Soft, Abdomen, Obese. No: Tenderness ...Rectal Exam: Yes: Deferred Breast(s): Yes: Other (deferred) Edema: No Integumentary: Yes: Rash. No: Bruising Neurological: Yes: Alert, Oriented, Other (motor and sensory evaluation is symmetric in UE/ LE/ face) Psychiatric: Yes: Alert, Oriented Labs: CBC, BMP 08/23/17 14:58 08/23/17 15:40 Imaging - Results Chest X-ray: Pending Problem List - Problems (1) COPD exacerbation Code(s): J44.1 - CHRONIC OBSTRUCTIVE PULMONARY DISEASE W (ACUTE) EXACERBATION (2) CHF (congestive heart failure) Code(s): I50.9 - HEART FAILURE, UNSPECIFIED (3) Shoulder pain, left Code(s): M25.512 - PAIN IN LEFT SHOULDER Assessment/Plan start IV solu-medrol Pulmonary consult Ortho consult OOBTC daily.PT eval. AM labs
[2017-08-23] MEDS: BUDESONIDE/FORMETEROL FUMARATE 80/4.5 mcg INHALER IH SCH (23:21)
[2017-08-23] MEDS: LORazepam 1 MG TABLET PO PRN (23:21)
[2017-08-23] MEDS: NYSTATIN 500,000 UNITS/5 ML SUSPENSION PO SCH (23:54)
[2017-08-24] MEDS: methylPREDNISolone NA SUCC 40 MG/1 ML VIAL IVPUSH SCH ×3 (02:20→18:41)
[2017-08-24] MEDS: ALBUTEROL SO4 2.5/IPRATROPIUM 0.5 INH SOL 3 ML VIAL.NEB. NEB SCH ×3 (06:06→21:30)
[2017-08-24 07:21] LABS: MCH 23.5 pg (25.7-33.7); MEAN CELL VOLUME 75.8 fl (80-96); MEAN PLT VOLUME 7.5 fl (7.5-11.1); PLATELET COUNT 348 K/MM3 (134-434); RDW 18.2 % (11.6-15.6); WHITE BLOOD COUNT 17.9 K/mm3 (4.0-10.0)
[2017-08-24 07:43] LABS: ANION GAP 8 (8-16); CALCIUM 8.6 mg/dL (8.5-10.1); CO2 25 mmol/L (21-32); GLUCOSE,RANDOM 151 mg/dL (74-106)
[2017-08-24 07:47] LABS: ALK PHOS 54 U/L (45-117); BILIRUBIN,TOTAL 0.3 mg/dL (0.2-1.0); CREATININE 0.8 mg/dL (0.55-1.02); SGOT/AST 11 U/L (15-37); SGPT/ALT 32 U/L (12-78); TOT PROT 6.4 g/dl (6.4-8.2)
[2017-08-24] MEDS ORDERED: PT OWN MED DRAWER 7, Y5N ONE ×3 (10:59→19:46)
[2017-08-24] MEDS: RANITIDINE HCL 150 MG TABLET (FP) PO SCH ×2 (11:04→21:45)
[2017-08-24] MEDS: LORATADINE 10 MG TABLET PO SCH (11:04)
[2017-08-24] MEDS: BACLOFEN 10 MG TABLET (FP) PO SCH ×2 (11:04→21:45)
[2017-08-24] MEDS: BUDESONIDE/FORMETEROL FUMARATE 80/4.5 mcg INHALER IH SCH ×2 (11:05→21:55)
[2017-08-24] MEDS: FLUTICASONE PROP 0.05% 16 GM NASAL SPRAY NS SCH (11:06)
[2017-08-24] MEDS: NYSTATIN 500,000 UNITS/5 ML SUSPENSION PO SCH ×2 (11:06→21:46)
[2017-08-24] MEDS: POLYETHYLENE GLYCOL 3350 119 GM BTL PO SCH (11:06)
[2017-08-24] MEDS: NAPROXEN 500 MG TABLET (FP) PO SCH ×2 (11:08→21:56)
--- NOTE | 2017-08-24 11:11 | PN ---
Progress Note (short form) - Note Progress Note: Breathing feels a little better today. Still with congested cough. No hemoptysis. Intake & Output 08/21/17 08/22/17 08/23/17 08/24/17 23:59 23:59 23:59 23:59 Intake Total 300 600 Balance 300 600 Weight 171 lb 12.8 oz Last Vital Signs Temp Pulse Resp BP Pulse Ox 98.4 F 95 H 22 147/83 95 08/24/17 06:00 08/24/17 06:00 08/24/17 06:00 08/24/17 06:00 08/23/17 21:00 Active Medications Acetaminophen (Tylenol -) 325 mg PO Q6H PRN PRN Reason: PAIN Albuterol Sulfate (Ventolin 0.083% Nebulizer Soln -) 1 amp NEB Q4H PRN PRN Reason: SHORT OF BREATH/WHEEZING Albuterol/Ipratropium (Duoneb -) 1 amp NEB TIDR [facility] Last Admin: 08/24/17 06:06 Dose: 1 amp Baclofen (Lioresal -) 10 mg PO BID [facility] Budesonide/Formoterol Fumarate (Symbicort 80/4.5mcg -) 2 puff IH BID [facility] Last Admin: 08/23/17 23:21 Dose: 2 puff Bupropion HCl (Wellbutrin Xl -) 150 mg PO DAILY [facility] Fluticasone Propionate (Flonase -) 1 spray NS DAILY [facility] Loratadine (Claritin -) 10 mg PO DAILY [facility] Lorazepam (Ativan -) 1 mg PO DAILY PRN PRN Reason: ANXIETY Last Admin: 08/23/17 23:21 Dose: 1 mg Methylprednisolone Sodium Succinate (Solu-Medrol -) 40 mg IVPUSH Q8H-IV [facility] Last Admin: 08/24/17 02:20 Dose: 40 mg Montelukast Sodium (Singulair -) 10 mg PO HS [facility] Naproxen (Naprosyn -) 500 mg PO BID [facility] Non-Formulary Medication (Cyclosporine [Restasis]) 1 each OP ASDIR [facility] Nystatin (Nystatin Oral Suspension -) 500,000 units PO BID [facility] Last Admin: 08/23/17 23:54 Dose: 500,000 units Polyethylene Glycol (Miralax (For Daily Use) -) 17 gm PO DAILY [facility] Ranitidine HCl (Zantac -) 300 mg PO HS [facility] Constitutional: Yes: Mildly tachypneic at rest HENT: Yes: Atraumatic, Normocephalic Neck: Yes: Supple, Trachea Midline Cardiovascular: Yes: Regular Rate and Rhythm, S1, S2. No: JVD, Gallop, Murmur, Rub, S3, S4 Respiratory: Yes: Bilateral expiratory wheeze with coarse rhonchi GI: (+) BS, NT, ND EXT: (-) edema Neuro: non-focal Labs: Laboratory Results - last 24 hr 08/23/17 08/23/17 08/24/17 14:58 15:40 06:30 WBC 15.7 H 17.9 H RBC 4.87 4.74 Hgb 11.7 11.1 Hct 36.8 35.9 MCV 75.5 L 75.8 L MCH 24.0 L 23.5 L MCHC 31.7 L 31.0 L RDW 18.1 H 18.2 H Plt Count 357 348 MPV 7.6 7.5 Neutrophils % 86.2 H Lymphocytes % 9.5 D Monocytes % 3.7 L Eosinophils % 0.1 Basophils % 0.5 Sodium 143 Potassium 4.4 Chloride 107 Carbon Dioxide 25 Anion Gap 11 BUN 17 D Creatinine 1.0 D Creat Clearance w eGFR 56.18 Random Glucose 151 H D Calcium 8.7 Total Bilirubin 0.4 D AST 16 ALT 35 Alkaline Phosphatase 60 D Total Protein 7.0 Albumin 3.3 L 08/24/17 06:30 WBC RBC Hgb Hct MCV MCH MCHC RDW Plt Count MPV Neutrophils % Lymphocytes % Monocytes % Eosinophils % Basophils % Sodium 140 Potassium 4.4 Chloride 107 Carbon Dioxide 25 Anion Gap 8 BUN 20 H Creatinine 0.8 Creat Clearance w eGFR > 60 Random Glucose 151 H Calcium 8.6 Total Bilirubin 0.3 D AST 11 L D ALT 32 Alkaline Phosphatase 54 Total Protein 6.4 Albumin 3.0 L Problem List - Problems (1) Asthma exacerbation Code(s): J45.901 - UNSPECIFIED ASTHMA WITH (ACUTE) EXACERBATION (2) COPD exacerbation Code(s): J44.1 - CHRONIC OBSTRUCTIVE PULMONARY DISEASE W (ACUTE) EXACERBATION (3) Respiratory distress Code(s): R06.00 - DYSPNEA, UNSPECIFIED (4) Moderate persistent chronic asthma with acute exacerbation Code(s): J45.41 - MODERATE PERSISTENT ASTHMA WITH (ACUTE) EXACERBATION Assessment/Plan IMP MODERATE CHRONIC PERSISTENT ASTHMA WITH ACUTE EXACERBATION ASTHMA/COPD SINUSITIS CHF PERIPHERAL NEUROPATHY GERD HYPOTHYROIDISM PLAN IV STEROIDS INHALED BRONCHODILATORS O2 SINGULAIR/CLARITIN ZITHROMAX 500mq PO TIW MONITOR PEAK FLOW SHOULD HAVE SLEEP WORKUP AFTER D/C TO R/O [facility] DR ZARATE
--- NOTE | 2017-08-24 14:44 | PN ---
Progress Note, Physician History of Present Illness: Pt's cough is slightly better, sitting in the bed (all day). Pt w/o CP, palp, abd pain; pt with constipation. Pt with left shoulder pain, states that cannot move her left arm. - Current Medication List Current Medications: Active Medications Acetaminophen (Tylenol -) 325 mg PO Q6H PRN PRN Reason: PAIN Albuterol Sulfate (Ventolin 0.083% Nebulizer Soln -) 1 amp NEB Q4H PRN PRN Reason: SHORT OF BREATH/WHEEZING Albuterol/Ipratropium (Duoneb -) 1 amp NEB TIDR [facility] Last Admin: 08/24/17 06:06 Dose: 1 amp Baclofen (Lioresal -) 10 mg PO BID [facility] Last Admin: 08/24/17 11:04 Dose: 10 mg Budesonide/Formoterol Fumarate (Symbicort 80/4.5mcg -) 2 puff IH BID [facility] Last Admin: 08/24/17 11:05 Dose: 2 puff Bupropion HCl (Wellbutrin Xl -) 150 mg PO DAILY [facility] Last Admin: 08/24/17 11:05 Dose: 150 mg Fluticasone Propionate (Flonase -) 1 spray NS DAILY [facility] Last Admin: 08/24/17 11:06 Dose: 1 spray Loratadine (Claritin -) 10 mg PO DAILY [facility] Last Admin: 08/24/17 11:04 Dose: 10 mg Lorazepam (Ativan -) 1 mg PO DAILY PRN PRN Reason: ANXIETY Last Admin: 08/23/17 23:21 Dose: 1 mg Methylprednisolone Sodium Succinate (Solu-Medrol -) 40 mg IVPUSH Q8H-IV [facility] Last Admin: 08/24/17 11:05 Dose: 40 mg Montelukast Sodium (Singulair -) 10 mg PO HS [facility] Naproxen (Naprosyn -) 500 mg PO BID [facility] Last Admin: 08/24/17 11:08 Dose: 500 mg Non-Formulary Medication (Cyclosporine [Restasis]) 1 each OP ASDIR [facility] Nystatin (Nystatin Oral Suspension -) 500,000 units PO BID [facility] Last Admin: 08/24/17 11:06 Dose: 500,000 units Polyethylene Glycol (Miralax (For Daily Use) -) 17 gm PO DAILY [facility] Last Admin: 08/24/17 11:06 Dose: 17 grams Ranitidine HCl (Zantac -) 300 mg PO HS [facility] Last Admin: 08/24/17 11:04 Dose: 300 mg - Objective Vital Signs: Vital Signs Temperature 98.4 F 08/24/17 06:00 Pulse Rate 95 H 08/24/17 06:00 Respiratory Rate 22 08/24/17 06:00 Blood Pressure 147/83 08/24/17 06:00 O2 Sat by Pulse Oximetry (%) 95 08/23/17 21:00 Constitutional: Yes: No Distress, Calm Cardiovascular: Yes: Regular Rate and Rhythm, S1, S2 Respiratory: Yes: Regular, CTA Bilaterally, Rhonchi (bilat), Wheezes (bilat) Gastrointestinal: Yes: Normal Bowel Sounds, Soft, Distention Edema: No Neurological: Yes: Alert, Oriented Labs: CBC, BMP 08/24/17 06:30 08/24/17 06:30 Problem List - Problems (1) COPD exacerbation Code(s): J44.1 - CHRONIC OBSTRUCTIVE PULMONARY DISEASE W (ACUTE) EXACERBATION (2) CHF (congestive heart failure) Code(s): I50.9 - HEART FAILURE, UNSPECIFIED (3) Shoulder pain, left Code(s): M25.512 - PAIN IN LEFT SHOULDER (4) Constipation Code(s): K59.00 - CONSTIPATION, UNSPECIFIED Assessment/Plan Continue IV Solu-medrol Pulmonary consult appreciated. Ortho consult for left shoulder pain OOBTC daily. PT eval. AM labs
[2017-08-24] MEDS: LORazepam 1 MG TABLET PO PRN (14:50)
--- NOTE | 2017-08-24 18:11 | EKG ---
Test Reason : Blood Pressure : / mmHG Vent. Rate : 107 BPM Atrial Rate : 107 BPM P-R Int : 148 ms QRS Dur : 074 ms QT Int : 326 ms P-R-T Axes : 039 038 065 degrees QTc Int : 435 ms SINUS TACHYCARDIA NONSPECIFIC T WAVE ABNORMALITY WHEN COMPARED WITH ECG OF 21-JUL-2017 19:44, NO SIGNIFICANT CHANGE WAS FOUND REPEAT EKG IF CLINICALLY INDICATED Confirmed by PALOMO BLANCA MD ([id number]) on 08/24/2017 6:10:55 PM Referred By: Confirmed By:PALOMO BLANCA MD
[2017-08-24] MEDS: MONTELUKAST NA 10 MG TABLET PO SCH (21:51)
[2017-08-25] MEDS: methylPREDNISolone NA SUCC 40 MG/1 ML VIAL IVPUSH SCH ×3 (01:44→17:31)
[2017-08-25] MEDS: ALBUTEROL SO4 2.5/IPRATROPIUM 0.5 INH SOL 3 ML VIAL.NEB. NEB SCH (06:20)
[2017-08-25 07:36] LABS: MCHC 31.4 g/dl (32.0-36.0); MEAN CELL VOLUME 76.3 fl (80-96); MEAN PLT VOLUME 7.9 fl (7.5-11.1); PLATELET COUNT 357 K/MM3 (134-434); RDW 18.5 % (11.6-15.6); WHITE BLOOD COUNT 22.5 K/mm3 (4.0-10.0)
[2017-08-25 07:45] LABS: ANION GAP 6 (8-16); CALCIUM 8.6 mg/dL (8.5-10.1); CO2 29 mmol/L (21-32); GLUCOSE,RANDOM 133 mg/dL (74-106)
[2017-08-25 07:46] LABS: CREATININE 0.7 mg/dL (0.55-1.02)
--- NOTE | 2017-08-25 09:57 | CONSULT ---
Consult - text type - Consultation Consultation Note: FULL CONSULT DICTATED IMP: LEFT ROTATOR CUFF EAR PLAN: NEEDS OPERATIVE REPAIR ONCE MEDICALLY OPTIMIZED. WILL BOOK OUTPATIENT AFTER DISCHARGE. ANALGESICS FOR NOW
[2017-08-25] MEDS ORDERED: ACETYLCYSTEINE 20% 200MG/ML 30 ML VIAL *FOR ORAL / INH USE ONLY NEB ONE (10:50)
[2017-08-25] MEDS ORDERED: SENNOSIDES 8.6MG TABLET (FP) PO PRN (10:52)
[2017-08-25] MEDS: BACLOFEN 10 MG TABLET (FP) PO SCH ×2 (10:58→21:57)
[2017-08-25] MEDS: LORATADINE 10 MG TABLET PO SCH (10:58)
[2017-08-25] MEDS: NYSTATIN 500,000 UNITS/5 ML SUSPENSION PO SCH ×2 (10:58→21:56)
[2017-08-25] MEDS: BUDESONIDE/FORMETEROL FUMARATE 80/4.5 mcg INHALER IH SCH ×2 (10:59→21:56)
--- NOTE | 2017-08-25 10:59 | PN ---
Progress Note, Physician History of Present Illness: Pt's cough is the same, cannot sleep. Pt w/o CP, palp, abd pain; pt with constipation. Pt with left shoulder pain, states that cannot move her left arm. Pt doesn't want to bring in Restasis at the hospital (not available from the hospital pharmacy), doesn't want to take it while in the hospital (to DC). - Current Medication List Current Medications: Active Medications Acetaminophen (Tylenol -) 325 mg PO Q6H PRN PRN Reason: PAIN Albuterol Sulfate (Ventolin 0.083% Nebulizer Soln -) 1 amp NEB Q4H PRN PRN Reason: SHORT OF BREATH/WHEEZING Albuterol/Ipratropium (Duoneb -) 1 amp NEB TIDR [facility] Last Admin: 08/25/17 06:20 Dose: 1 amp Baclofen (Lioresal -) 10 mg PO BID [facility] Last Admin: 08/24/17 21:45 Dose: 10 mg Budesonide/Formoterol Fumarate (Symbicort 80/4.5mcg -) 2 puff IH BID [facility] Last Admin: 08/24/17 21:55 Dose: 2 puff Bupropion HCl (Wellbutrin Xl -) 150 mg PO DAILY [facility] Last Admin: 08/24/17 11:05 Dose: 150 mg Fluticasone Propionate (Flonase -) 1 spray NS DAILY [facility] Last Admin: 08/24/17 11:06 Dose: 1 spray Loratadine (Claritin -) 10 mg PO DAILY [facility] Last Admin: 08/24/17 11:04 Dose: 10 mg Lorazepam (Ativan -) 1 mg PO DAILY PRN PRN Reason: ANXIETY Last Admin: 08/24/17 14:50 Dose: 1 mg Methylprednisolone Sodium Succinate (Solu-Medrol -) 40 mg IVPUSH Q8H-IV [facility] Last Admin: 08/25/17 01:44 Dose: 40 mg Montelukast Sodium (Singulair -) 10 mg PO HS [facility] Last Admin: 08/24/17 21:51 Dose: 10 mg Naproxen (Naprosyn -) 500 mg PO BID [facility] Last Admin: 08/24/17 21:56 Dose: 500 mg Non-Formulary Medication (Cyclosporine [Restasis]) 1 each OP ASDIR [facility] Nystatin (Nystatin Oral Suspension -) 500,000 units PO BID [facility] Last Admin: 08/24/17 21:46 Dose: 500,000 units Ranitidine HCl (Zantac -) 300 mg PO HS [facility] Last Admin: 08/24/17 21:45 Dose: 300 mg - Objective Vital Signs: Vital Signs Temperature 97.9 F 08/25/17 07:24 Pulse Rate 89 08/25/17 07:24 Respiratory Rate 17 08/25/17 07:24 Blood Pressure 129/69 08/25/17 07:24 O2 Sat by Pulse Oximetry (%) 93 L 08/24/17 21:00 Constitutional: Yes: No Distress, Calm Cardiovascular: Yes: Regular Rate and Rhythm, S1, S2 Respiratory: Yes: Regular, CTA Bilaterally, Rhonchi, Wheezes Gastrointestinal: Yes: Normal Bowel Sounds, Soft. No: Tenderness Edema: No Neurological: Yes: Alert, Oriented Labs: CBC, BMP 08/25/17 06:30 08/25/17 06:30 Problem List - Problems (1) COPD exacerbation Code(s): J44.1 - CHRONIC OBSTRUCTIVE PULMONARY DISEASE W (ACUTE) EXACERBATION (2) CHF (congestive heart failure) Code(s): I50.9 - HEART FAILURE, UNSPECIFIED (3) Shoulder pain, left Code(s): M25.512 - PAIN IN LEFT SHOULDER (4) Constipation Code(s): K59.00 - CONSTIPATION, UNSPECIFIED Assessment/Plan Continue IV Solu-medrol Pulmonary consult appreciated. Ortho consult for left shoulder pain OOBTC daily. PT eval. Increase Miralax, add Senna. Add Mucomyst. Add Hycodan PRN. Case was d/w pt's nurse. AM labs
[2017-08-25] MEDS: POLYETHYLENE GLYCOL 3350 119 GM BTL PO SCH ×2 (11:00→21:57)
[2017-08-25] MEDS: FLUTICASONE PROP 0.05% 16 GM NASAL SPRAY NS SCH (11:04)
[2017-08-25] MEDS: NAPROXEN 500 MG TABLET (FP) PO SCH ×2 (11:04→21:57)
[2017-08-25] MEDS: PATIENT'S OWN MEDICATION (NON-FORMULARY) (Cyclosporine [Restasis] 1 EACH) OP SCH ×2 (11:18→13:08)
[2017-08-25] MEDS ORDERED: ACETYLCYSTEINE 20% 200MG/ML 30 ML VIAL *FOR ORAL / INH USE ONLY NEB SCH (12:45)
--- NOTE | 2017-08-25 12:54 | PN ---
Progress Note, Physician History of Present Illness: PULMONARY' ' ALERT,LESS DYSPNEIC,+COUGH. - Current Medication List Current Medications: Active Medications Acetaminophen (Tylenol -) 325 mg PO Q6H PRN PRN Reason: PAIN Acetylcysteine (Mucomyst 20 Oral / Inh Use Only*) 600 mg NEB QIDR [facility] Albuterol Sulfate (Ventolin 0.083% Nebulizer Soln -) 1 amp NEB QIDR [facility] Baclofen (Lioresal -) 10 mg PO BID [facility] Last Admin: 08/25/17 10:58 Dose: 10 mg Budesonide/Formoterol Fumarate (Symbicort 80/4.5mcg -) 2 puff IH BID [facility] Last Admin: 08/25/17 10:59 Dose: 2 puff Bupropion HCl (Wellbutrin Xl -) 150 mg PO DAILY [facility] Last Admin: 08/25/17 10:58 Dose: 150 mg Fluticasone Propionate (Flonase -) 1 spray NS DAILY [facility] Last Admin: 08/25/17 11:04 Dose: 1 spray Guaifenesin/Codeine Phosphate (Robitussin Ac -) 5 ml PO TID PRN PRN Reason: COUGH Loratadine (Claritin -) 10 mg PO DAILY [facility] Last Admin: 08/25/17 10:58 Dose: 10 mg Lorazepam (Ativan -) 1 mg PO DAILY PRN PRN Reason: ANXIETY Last Admin: 08/24/17 14:50 Dose: 1 mg Methylprednisolone Sodium Succinate (Solu-Medrol -) 40 mg IVPUSH Q8H-IV [facility] Last Admin: 08/25/17 10:58 Dose: 40 mg Montelukast Sodium (Singulair -) 10 mg PO HS [facility] Last Admin: 08/24/17 21:51 Dose: 10 mg Naproxen (Naprosyn -) 500 mg PO BID [facility] Last Admin: 08/25/17 11:04 Dose: 500 mg Nystatin (Nystatin Oral Suspension -) 500,000 units PO BID [facility] Last Admin: 08/25/17 10:58 Dose: 500,000 units Polyethylene Glycol (Miralax (For Daily Use) -) 17 gm PO BID [facility] Ranitidine HCl (Zantac -) 300 mg PO HS [facility] Last Admin: 08/24/17 21:45 Dose: 300 mg Senna (Senna -) 2 tab PO HS PRN PRN Reason: CONSTIPATION - Objective Vital Signs: Vital Signs Temperature 98.2 F 08/25/17 11:19 Pulse Rate 95 H 08/25/17 11:19 Respiratory Rate 18 08/25/17 11:19 Blood Pressure 148/93 08/25/17 11:19 O2 Sat by Pulse Oximetry (%) 93 L 08/24/17 21:00 Constitutional: Yes: Well Nourished, Calm Eyes: Yes: WNL HENT: Yes: WNL Neck: Yes: WNL Cardiovascular: Yes: Regular Rate and Rhythm, S1, S2 Respiratory: Yes: Wheezes (SCATTTERED EDWIN WHEEZES) Gastrointestinal: Yes: Normal Bowel Sounds, Soft Extremities: Yes: WNL Edema: No Labs: CBC, BMP 08/25/17 06:30 08/25/17 06:30 Problem List - Problems (1) Asthma exacerbation Code(s): J45.901 - UNSPECIFIED ASTHMA WITH (ACUTE) EXACERBATION (2) COPD exacerbation Code(s): J44.1 - CHRONIC OBSTRUCTIVE PULMONARY DISEASE W (ACUTE) EXACERBATION (3) Respiratory distress Code(s): R06.00 - DYSPNEA, UNSPECIFIED (4) Moderate persistent chronic asthma with acute exacerbation Code(s): J45.41 - MODERATE PERSISTENT ASTHMA WITH (ACUTE) EXACERBATION Assessment/Plan IMP MODERATE CHRONIC PERSISTENT ASTHMA WITH ACUTE EXACERBATION ASTHMA/COPD SINUSITIS CHF PERIPHERAL NEUROPATHY GERD HYPOTHYROIDISM PLAN IV STEROIDS SAME DOSE INHALED BRONCHODILATORS O2 DALIRESP ZITHROMAX 500mq PO TIW MONITOR PEAK FLOW DR G[facility] Problem List - Problems (1) Asthma exacerbation Code(s): J45.901 - UNSPECIFIED ASTHMA WITH (ACUTE) EXACERBATION (2) COPD exacerbation Code(s): J44.1 - CHRONIC OBSTRUCTIVE PULMONARY DISEASE W (ACUTE) EXACERBATION (3) Respiratory distress Code(s): R06.00 - DYSPNEA, UNSPECIFIED (4) Moderate persistent chronic asthma with acute exacerbation Code(s): J45.41 - MODERATE PERSISTENT ASTHMA WITH (ACUTE) EXACERBATION
[2017-08-25] MEDS: ALBUTEROL SO4 0.083% IH SOL 2.5 MG/3 ML VIAL.NEB. NEB SCH ×3 (12:55→23:04)
[2017-08-25] MEDS: ACETYLCYSTEINE 20% 200MG/ML 4 ML VIAL *FOR ORAL / INH USE ONLY NEB SCH ×2 (17:20→23:04)
[2017-08-25] MEDS: MONTELUKAST NA 10 MG TABLET PO SCH (21:57)
[2017-08-25] MEDS: RANITIDINE HCL 150 MG TABLET (FP) PO SCH (21:57)
[2017-08-25] MEDS: LORazepam 1 MG TABLET PO PRN (22:07)
[2017-08-25] MEDS: guaiFENesin/CODEINE 5 ML UNIT-DOSE CUPS PO PRN (22:07)
[2017-08-26] MEDS: methylPREDNISolone NA SUCC 40 MG/1 ML VIAL IVPUSH SCH ×3 (02:25→17:10)
[2017-08-26] MEDS: ALBUTEROL SO4 0.083% IH SOL 2.5 MG/3 ML VIAL.NEB. NEB SCH ×4 (06:22→23:15)
[2017-08-26] MEDS: ACETYLCYSTEINE 20% 200MG/ML 4 ML VIAL *FOR ORAL / INH USE ONLY NEB SCH ×4 (06:22→23:15)
[2017-08-26 07:57] LABS: ANION GAP 6 (8-16); CALCIUM 7.8 mg/dL (8.5-10.1); CO2 29 mmol/L (21-32); CREATININE 0.7 mg/dL (0.55-1.02); GLUCOSE,RANDOM 130 mg/dL (74-106); MCH 24.2 pg (25.7-33.7); MCHC 31.9 g/dl (32.0-36.0); MEAN CELL VOLUME 75.9 fl (80-96); MEAN PLT VOLUME 7.7 fl (7.5-11.1); PLATELET COUNT 364 K/MM3 (134-434); WHITE BLOOD COUNT 18.5 K/mm3 (4.0-10.0)
[2017-08-26] MEDS ORDERED: PT OWN MED DRAWER 7, Y5N ONE ×3 (09:36→21:27)
--- NOTE | 2017-08-26 10:19 | PN ---
Progress Note, Physician History of Present Illness: Pt's cough, some improvement; pt slept last night with "new cough medicine". Pt w/o CP, palp, abd pain; pt with constipation. - Current Medication List Current Medications: Active Medications Acetaminophen (Tylenol -) 325 mg PO Q6H PRN PRN Reason: PAIN Acetylcysteine (Mucomyst 20 Oral / Inh Use Only*) 600 mg NEB QIDR [facility] Last Admin: 08/26/17 06:22 Dose: 600 mg Albuterol Sulfate (Ventolin 0.083% Nebulizer Soln -) 1 amp NEB QIDR [facility] Last Admin: 08/26/17 06:22 Dose: 1 amp Baclofen (Lioresal -) 10 mg PO BID [facility] Last Admin: 08/25/17 21:57 Dose: 10 mg Budesonide/Formoterol Fumarate (Symbicort 80/4.5mcg -) 2 puff IH BID [facility] Last Admin: 08/25/17 21:56 Dose: 2 puff Bupropion HCl (Wellbutrin Xl -) 150 mg PO DAILY [facility] Last Admin: 08/25/17 10:58 Dose: 150 mg Fluticasone Propionate (Flonase -) 1 spray NS DAILY [facility] Last Admin: 08/25/17 11:04 Dose: 1 spray Guaifenesin/Codeine Phosphate (Robitussin Ac -) 5 ml PO TID PRN PRN Reason: COUGH Last Admin: 08/25/17 22:07 Dose: 5 ml Loratadine (Claritin -) 10 mg PO DAILY [facility] Last Admin: 08/25/17 10:58 Dose: 10 mg Lorazepam (Ativan -) 1 mg PO DAILY PRN PRN Reason: ANXIETY Last Admin: 08/25/17 22:07 Dose: 1 mg Methylprednisolone Sodium Succinate (Solu-Medrol -) 40 mg IVPUSH Q8H-IV [facility] Last Admin: 08/26/17 02:25 Dose: 40 mg Montelukast Sodium (Singulair -) 10 mg PO HS [facility] Last Admin: 08/25/17 21:57 Dose: 10 mg Naproxen (Naprosyn -) 500 mg PO BID [facility] Last Admin: 08/25/17 21:57 Dose: 500 mg Nystatin (Nystatin Oral Suspension -) 500,000 units PO BID [facility] Last Admin: 08/25/17 21:56 Dose: 500,000 units Polyethylene Glycol (Miralax (For Daily Use) -) 17 gm PO BID [facility] Last Admin: 08/25/17 21:57 Dose: 17 grams Ranitidine HCl (Zantac -) 300 mg PO HS [facility] Last Admin: 08/25/17 21:57 Dose: 300 mg Senna (Senna -) 2 tab PO HS PRN PRN Reason: CONSTIPATION - Objective Vital Signs: Vital Signs Temperature 98 F 08/26/17 06:09 Pulse Rate 84 08/26/17 06:09 Respiratory Rate 18 08/26/17 06:09 Blood Pressure 148/88 08/26/17 06:09 O2 Sat by Pulse Oximetry (%) 96 08/25/17 21:00 Constitutional: Yes: No Distress, Calm Cardiovascular: Yes: Regular Rate and Rhythm, Murmur, S1, S2 Respiratory: Yes: Regular, CTA Bilaterally, Rales (bolat, scattered) Gastrointestinal: Yes: Normal Bowel Sounds, Soft. No: Tenderness Edema: No Neurological: Yes: Alert, Oriented Labs: CBC, BMP 08/26/17 06:55 08/26/17 06:55 Problem List - Problems (1) COPD exacerbation Code(s): J44.1 - CHRONIC OBSTRUCTIVE PULMONARY DISEASE W (ACUTE) EXACERBATION (2) CHF (congestive heart failure) Code(s): I50.9 - HEART FAILURE, UNSPECIFIED (3) Shoulder pain, left Code(s): M25.512 - PAIN IN LEFT SHOULDER (4) Constipation Code(s): K59.00 - CONSTIPATION, UNSPECIFIED (5) Leukocytosis Assessment/Plan: secondary to steroids Code(s): D72.829 - ELEVATED WHITE BLOOD CELL COUNT, UNSPECIFIED Assessment/Plan Continue IV Solu-medrol ( same dose for now) Pulmonary consult appreciated. Ortho consult for left shoulder pain OOBTC daily. PT eval. Increase Miralax, added Senna. Added Mucomyst. Added Hycodan PRN. Case was d/w pt's nurse. AM labs
[2017-08-26] MEDS: LORATADINE 10 MG TABLET PO SCH (10:25)
[2017-08-26] MEDS: BACLOFEN 10 MG TABLET (FP) PO SCH ×2 (10:25→21:23)
[2017-08-26] MEDS: guaiFENesin/CODEINE 5 ML UNIT-DOSE CUPS PO PRN ×2 (10:26→21:31)
[2017-08-26] MEDS: NYSTATIN 500,000 UNITS/5 ML SUSPENSION PO SCH ×2 (10:26→21:28)
[2017-08-26] MEDS: NAPROXEN 500 MG TABLET (FP) PO SCH ×2 (10:26→21:27)
[2017-08-26] MEDS: BUDESONIDE/FORMETEROL FUMARATE 80/4.5 mcg INHALER IH SCH ×2 (10:26→21:30)
[2017-08-26] MEDS: FLUTICASONE PROP 0.05% 16 GM NASAL SPRAY NS SCH (10:26)
[2017-08-26] MEDS: POLYETHYLENE GLYCOL 3350 119 GM BTL PO SCH ×2 (10:27→21:23)
--- NOTE | 2017-08-26 10:44 | PN ---
Progress Note (short form) - Note Progress Note: PULMONARY VSS/AFEBRILE MINOR SUBJECTIVE IMPROVEMENT AICTERIC B/L DIFUSE WHEEZES S1S2 BS+ MILD LOWER EXT EDEMA LEFT SHOULDER PAIN LABS/IMAGES/MICRO/EDS/NOTES REVIEWED IMP MODERATE CHRONIC PERSISTENT ASTHMA WITH ACUTE EXACERBATION/STEROID RESISTANT ASTHMA/COPD SINUSITIS CHF PERIPHERAL NEUROPATHY GERD HYPOTHYROIDISM LEFT SHOULDER PAIN PLAN IV STEROIDS SAME DOSE INHALED BRONCHODILATORS O2 DALIRESP ZITHROMAX 500mq PO TIW MONITOR PEAK FLOW Leonardo MARSH MD
[2017-08-26] MEDS: SENNOSIDES 8.6MG TABLET (FP) PO SCH (21:28)
[2017-08-26] MEDS: MONTELUKAST NA 10 MG TABLET PO SCH (21:30)
[2017-08-26] MEDS: RANITIDINE HCL 150 MG TABLET (FP) PO SCH (21:30)
[2017-08-27] MEDS: methylPREDNISolone NA SUCC 40 MG/1 ML VIAL IVPUSH SCH ×3 (01:22→17:12)
[2017-08-27] MEDS: ALBUTEROL SO4 0.083% IH SOL 2.5 MG/3 ML VIAL.NEB. NEB SCH ×4 (06:30→23:04)
[2017-08-27] MEDS: ACETYLCYSTEINE 20% 200MG/ML 4 ML VIAL *FOR ORAL / INH USE ONLY NEB SCH ×4 (06:30→23:04)
[2017-08-27] MEDS: amLODIPine BESYLATE 2.5 MG TABLET (FP) PO SCH (06:45)
[2017-08-27 07:40] LABS: MCH 23.9 pg (25.7-33.7); MCHC 31.5 g/dl (32.0-36.0); MEAN CELL VOLUME 75.9 fl (80-96); MEAN PLT VOLUME 7.7 fl (7.5-11.1); PLATELET COUNT 392 K/MM3 (134-434); RDW 18.2 % (11.6-15.6); WHITE BLOOD COUNT 24.9 K/mm3 (4.0-10.0)
[2017-08-27 07:59] LABS: ANION GAP 9 (8-16); CALCIUM 8.6 mg/dL (8.5-10.1); CO2 27 mmol/L (21-32); CREATININE 0.8 mg/dL (0.55-1.02); GLUCOSE,RANDOM 151 mg/dL (74-106)
[2017-08-27] MEDS ORDERED: PT OWN MED DRAWER 7, Y5N ONE ×2 (09:19→19:40)
[2017-08-27] MEDS: NYSTATIN 500,000 UNITS/5 ML SUSPENSION PO SCH ×2 (09:39→21:45)
[2017-08-27] MEDS: LORATADINE 10 MG TABLET PO SCH (09:39)
[2017-08-27] MEDS: SENNOSIDES 8.6MG TABLET (FP) PO SCH ×2 (09:39→21:46)
[2017-08-27] MEDS: POLYETHYLENE GLYCOL 3350 119 GM BTL PO SCH ×2 (09:39→21:44)
[2017-08-27] MEDS: FLUTICASONE PROP 0.05% 16 GM NASAL SPRAY NS SCH (09:39)
[2017-08-27] MEDS: BACLOFEN 10 MG TABLET (FP) PO SCH ×2 (09:39→21:39)
[2017-08-27] MEDS: NAPROXEN 500 MG TABLET (FP) PO SCH ×2 (09:40→21:45)
[2017-08-27] MEDS: BUDESONIDE/FORMETEROL FUMARATE 80/4.5 mcg INHALER IH SCH ×2 (09:43→21:52)
--- NOTE | 2017-08-27 10:55 | PN ---
Progress Note (short form) - Note Progress Note: PULMONARY VSS/AFEBRILE SUBJECTIVE IMPROVEMENT WITH THE ADDITION OF MUCOMYST ANICTERIC/CUSHINOID B/L DIFUSE WHEEZES DECREASED S1S2 BS+ MILD LOWER EXT EDEMA LEFT SHOULDER PAIN LABS/IMAGES/MICRO/EDS/NOTES REVIEWED PEAK FLOW 190 L/M IMP MODERATE CHRONIC PERSISTENT ASTHMA WITH ACUTE EXACERBATION/STEROID RESISTANT ASTHMA/COPD SINUSITIS CHF PERIPHERAL NEUROPATHY GERD HYPOTHYROIDISM LEFT SHOULDER PAIN PLAN IV STEROIDS SAME DOSE INHALED BRONCHODILATORS/CONTINUE MUCOMYST O2 DALIRESP ZITHROMAX 500mq PO TIW MONITOR PEAK FLOW Leonardo MARSH MD
--- NOTE | 2017-08-27 11:24 | PN ---
Progress Note (short form) - Note Progress Note: PULMONARY CONDITION IMPROVING WILL ARRANGE OR OUTPATIENT
--- NOTE | 2017-08-27 13:07 | PN ---
Progress Note, Physician History of Present Illness: Pt's cough, some improvement; still bring up colored sputum Pt w/o CP, palp, abd pain; pt with constipation-had a small BM. - Current Medication List Current Medications: Active Medications Acetaminophen (Tylenol -) 325 mg PO Q6H PRN PRN Reason: PAIN Acetylcysteine (Mucomyst 20 Oral / Inh Use Only*) 600 mg NEB QIDR [facility] Last Admin: 08/27/17 11:44 Dose: 600 mg Albuterol Sulfate (Ventolin 0.083% Nebulizer Soln -) 1 amp NEB QIDR [facility] Last Admin: 08/27/17 11:45 Dose: 1 amp Amlodipine Besylate (Norvasc -) 2.5 mg PO DAILY [facility] Last Admin: 08/27/17 06:45 Dose: 2.5 mg Baclofen (Lioresal -) 10 mg PO BID [facility] Last Admin: 08/27/17 09:39 Dose: 10 mg Budesonide/Formoterol Fumarate (Symbicort 80/4.5mcg -) 2 puff IH BID [facility] Last Admin: 08/27/17 09:43 Dose: 2 puff Bupropion HCl (Wellbutrin Xl -) 150 mg PO DAILY [facility] Last Admin: 08/27/17 09:39 Dose: 150 mg Fluticasone Propionate (Flonase -) 1 spray NS DAILY [facility] Last Admin: 08/27/17 09:39 Dose: 1 spray Guaifenesin/Codeine Phosphate (Robitussin Ac -) 5 ml PO TID PRN PRN Reason: COUGH Last Admin: 08/26/17 21:31 Dose: 5 ml Loratadine (Claritin -) 10 mg PO DAILY [facility] Last Admin: 08/27/17 09:39 Dose: 10 mg Lorazepam (Ativan -) 1 mg PO DAILY PRN PRN Reason: ANXIETY Last Admin: 08/25/17 22:07 Dose: 1 mg Methylprednisolone Sodium Succinate (Solu-Medrol -) 40 mg IVPUSH Q8H-IV [facility] Last Admin: 08/27/17 09:39 Dose: 40 mg Montelukast Sodium (Singulair -) 10 mg PO HS [facility] Last Admin: 08/26/17 21:30 Dose: 10 mg Naproxen (Naprosyn -) 500 mg PO BID [facility] Last Admin: 08/27/17 09:40 Dose: 500 mg Nystatin (Nystatin Oral Suspension -) 500,000 units PO BID [facility] Last Admin: 08/27/17 09:39 Dose: 500,000 units Polyethylene Glycol (Miralax (For Daily Use) -) 17 gm PO BID [facility] Last Admin: 08/27/17 09:39 Dose: 17 grams Ranitidine HCl (Zantac -) 300 mg PO HS [facility] Last Admin: 08/26/17 21:30 Dose: 300 mg Senna (Senna -) 2 tab PO BID [facility] Last Admin: 08/27/17 09:39 Dose: 2 tab - Objective Vital Signs: Vital Signs Temperature 98.1 F 08/27/17 10:00 Pulse Rate 98 H 08/27/17 11:08 Respiratory Rate 20 08/27/17 10:00 Blood Pressure 152/83 08/27/17 10:00 O2 Sat by Pulse Oximetry (%) 96 08/27/17 11:08 Constitutional: Yes: No Distress, Calm Cardiovascular: Yes: Regular Rate and Rhythm, S1, S2 Respiratory: Yes: Regular, Rhonchi, Wheezes Gastrointestinal: Yes: Normal Bowel Sounds, Soft, Abdomen, Obese. No: Tenderness Edema: No Neurological: Yes: Alert, Oriented Labs: CBC, BMP 08/27/17 06:00 08/27/17 06:00 Problem List - Problems (1) COPD exacerbation Code(s): J44.1 - CHRONIC OBSTRUCTIVE PULMONARY DISEASE W (ACUTE) EXACERBATION (2) CHF (congestive heart failure) Code(s): I50.9 - HEART FAILURE, UNSPECIFIED (3) Shoulder pain, left Code(s): M25.512 - PAIN IN LEFT SHOULDER (4) Constipation Code(s): K59.00 - CONSTIPATION, UNSPECIFIED (5) Leukocytosis Code(s): D72.829 - ELEVATED WHITE BLOOD CELL COUNT, UNSPECIFIED Assessment/Plan Continue IV Solu-medrol ( same dose for now) Pulmonary consult appreciated. Ortho consult for left shoulder pain OOBTC daily. PT eval. Cont Miralax, Senna. Cont Mucomyst. Cont Hycodan PRN. Case was d/w pt's nurse. AM labs
[2017-08-27] MEDS ORDERED: amLODIPine BESYLATE 2.5 MG TABLET (FP) PO ONE (16:15)
[2017-08-27] MEDS: MONTELUKAST NA 10 MG TABLET PO SCH (21:47)
[2017-08-27] MEDS: RANITIDINE HCL 150 MG TABLET (FP) PO SCH (21:54)
[2017-08-27] MEDS: guaiFENesin/CODEINE 5 ML UNIT-DOSE CUPS PO PRN (21:55)
[2017-08-28] MEDS: methylPREDNISolone NA SUCC 40 MG/1 ML VIAL IVPUSH SCH ×3 (02:15→21:17)
[2017-08-28] MEDS: ACETYLCYSTEINE 20% 200MG/ML 4 ML VIAL *FOR ORAL / INH USE ONLY NEB SCH ×3 (06:34→18:33)
[2017-08-28] MEDS: ALBUTEROL SO4 0.083% IH SOL 2.5 MG/3 ML VIAL.NEB. NEB SCH ×3 (06:35→18:33)
[2017-08-28 08:24] LABS: MCH 23.6 pg (25.7-33.7); MCHC 31.5 g/dl (32.0-36.0); MEAN CELL VOLUME 75.1 fl (80-96); MEAN PLT VOLUME 7.7 fl (7.5-11.1); PLATELET COUNT 396 K/MM3 (134-434); RDW 18.4 % (11.6-15.6); WHITE BLOOD COUNT 25.5 K/mm3 (4.0-10.0)
[2017-08-28 09:16] LABS: ANION GAP 9 (8-16); CALCIUM 8.9 mg/dL (8.5-10.1); CO2 28 mmol/L (21-32); CREATININE 0.8 mg/dL (0.55-1.02); GLUCOSE,RANDOM 175 mg/dL (74-106)
[2017-08-28] MEDS ORDERED: PT OWN MED DRAWER 7, Y5N ONE (10:17)
[2017-08-28 10:38] LABS: PLATELET COMMENTS NO CLUMPING NOTED; PLATELET ESTIMATE ADEQUATE; TOTAL CELLS COUNTED 100
[2017-08-28 10:39] LABS: ANISOCYTOSIS 1+; MICROCYTOSIS 1+
[2017-08-28] MEDS: amLODIPine BESYLATE 2.5 MG TABLET (FP) PO SCH (10:40)
[2017-08-28] MEDS: SENNOSIDES 8.6MG TABLET (FP) PO SCH ×2 (10:40→21:17)
[2017-08-28] MEDS: POLYETHYLENE GLYCOL 3350 119 GM BTL PO SCH ×2 (10:41→21:19)
[2017-08-28] MEDS: NYSTATIN 500,000 UNITS/5 ML SUSPENSION PO SCH ×2 (10:41→21:16)
[2017-08-28] MEDS: BUDESONIDE/FORMETEROL FUMARATE 80/4.5 mcg INHALER IH SCH ×2 (10:41→21:38)
[2017-08-28] MEDS: LORATADINE 10 MG TABLET PO SCH (10:41)
[2017-08-28] MEDS: BACLOFEN 10 MG TABLET (FP) PO SCH ×2 (10:41→21:16)
[2017-08-28] MEDS: NAPROXEN 500 MG TABLET (FP) PO SCH ×2 (10:41→21:16)
[2017-08-28] MEDS: FLUTICASONE PROP 0.05% 16 GM NASAL SPRAY NS SCH (10:42)
[2017-08-28] MEDS: guaiFENesin/CODEINE 5 ML UNIT-DOSE CUPS PO PRN (10:52)
--- NOTE | 2017-08-28 11:54 | PN ---
Progress Note, Physician History of Present Illness: Pt's cough, some improvement; still bring up colored sputum Pt w/o CP, palp, abd pain; pt with constipation-had BM. Pt c/o insomnia. - Current Medication List Current Medications: Active Medications Acetaminophen (Tylenol -) 325 mg PO Q6H PRN PRN Reason: PAIN Acetylcysteine (Mucomyst 20 Oral / Inh Use Only*) 600 mg NEB QIDR [facility] Last Admin: 08/28/17 06:34 Dose: 600 mg Albuterol Sulfate (Ventolin 0.083% Nebulizer Soln -) 1 amp NEB QIDR [facility] Last Admin: 08/28/17 06:35 Dose: 1 amp Amlodipine Besylate (Norvasc -) 2.5 mg PO DAILY [facility] Last Admin: 08/28/17 10:40 Dose: 2.5 mg Baclofen (Lioresal -) 10 mg PO BID [facility] Last Admin: 08/28/17 10:41 Dose: 10 mg Budesonide/Formoterol Fumarate (Symbicort 80/4.5mcg -) 2 puff IH BID [facility] Last Admin: 08/28/17 10:41 Dose: 2 puff Bupropion HCl (Wellbutrin Xl -) 150 mg PO DAILY [facility] Last Admin: 08/28/17 10:40 Dose: 150 mg Fluticasone Propionate (Flonase -) 1 spray NS DAILY [facility] Last Admin: 08/28/17 10:42 Dose: 1 spray Loratadine (Claritin -) 10 mg PO DAILY [facility] Last Admin: 08/28/17 10:41 Dose: 10 mg Methylprednisolone Sodium Succinate (Solu-Medrol -) 40 mg IVPUSH Q8H-IV [facility] Last Admin: 08/28/17 10:39 Dose: 40 mg Montelukast Sodium (Singulair -) 10 mg PO HS [facility] Last Admin: 08/27/17 21:47 Dose: 10 mg Naproxen (Naprosyn -) 500 mg PO BID [facility] Last Admin: 08/28/17 10:41 Dose: 500 mg Nystatin (Nystatin Oral Suspension -) 500,000 units PO BID [facility] Last Admin: 08/28/17 10:41 Dose: 500,000 units Polyethylene Glycol (Miralax (For Daily Use) -) 17 gm PO BID [facility] Last Admin: 08/28/17 10:41 Dose: Not Given Ranitidine HCl (Zantac -) 300 mg PO HS [facility] Last Admin: 08/27/17 21:54 Dose: 300 mg Senna (Senna -) 2 tab PO BID [facility] Last Admin: 08/28/17 10:40 Dose: 2 tab - Objective Vital Signs: Vital Signs Temperature 97.8 F 08/28/17 05:48 Pulse Rate 83 08/28/17 05:48 Respiratory Rate 18 08/28/17 05:48 Blood Pressure 145/77 08/28/17 05:48 O2 Sat by Pulse Oximetry (%) 96 08/27/17 19:56 Constitutional: Yes: No Distress, Calm Cardiovascular: Yes: Regular Rate and Rhythm, S1, S2 Respiratory: Yes: Regular, Rales (at bases), Wheezes Gastrointestinal: Yes: Normal Bowel Sounds, Soft. No: Tenderness Edema: No Neurological: Yes: Alert, Oriented Labs: CBC, BMP 08/28/17 07:00 08/28/17 07:00 Problem List - Problems (1) COPD exacerbation Code(s): J44.1 - CHRONIC OBSTRUCTIVE PULMONARY DISEASE W (ACUTE) EXACERBATION (2) CHF (congestive heart failure) Code(s): I50.9 - HEART FAILURE, UNSPECIFIED (3) Shoulder pain, left Code(s): M25.512 - PAIN IN LEFT SHOULDER (4) Constipation Code(s): K59.00 - CONSTIPATION, UNSPECIFIED (5) Leukocytosis Code(s): D72.829 - ELEVATED WHITE BLOOD CELL COUNT, UNSPECIFIED Assessment/Plan IV Solu-medrol- to [facility] Pulmonary consult appreciated. Ortho consult for left shoulder pain appreciated OOBTC daily. PT eval. Cont Miralax, Senna. Cont Mucomyst. Cont Hycodan PRN. Trial of Rozerem Case was d/w pt's nurse. AM labs
[2017-08-28] MEDS ORDERED: RAMELTEON 8 MG TABLET PO SCH ×2 (12:15→22:00)
--- NOTE | 2017-08-28 12:19 | PN ---
Progress Note (short form) - Note Progress Note: Breathing feels overall better today. Still with some congested cough. No hemoptysis. Intake & Output 08/25/17 08/26/17 08/27/17 08/28/17 23:59 23:59 23:59 23:59 Intake Total 780 565 500 595 Output Total 1 Balance 780 565 499 595 Last Vital Signs Temp Pulse Resp BP Pulse Ox 97.8 F 83 18 145/77 96 08/28/17 05:48 08/28/17 05:48 08/28/17 05:48 08/28/17 05:48 08/27/17 19:56 Active Medications Acetaminophen (Tylenol -) 325 mg PO Q6H PRN PRN Reason: PAIN Acetylcysteine (Mucomyst 20 Oral / Inh Use Only*) 600 mg NEB QIDR [facility] Last Admin: 08/28/17 06:34 Dose: 600 mg Albuterol Sulfate (Ventolin 0.083% Nebulizer Soln -) 1 amp NEB QIDR [facility] Last Admin: 08/28/17 06:35 Dose: 1 amp Amlodipine Besylate (Norvasc -) 2.5 mg PO DAILY [facility] Last Admin: 08/28/17 10:40 Dose: 2.5 mg Baclofen (Lioresal -) 10 mg PO BID [facility] Last Admin: 08/28/17 10:41 Dose: 10 mg Budesonide/Formoterol Fumarate (Symbicort 80/4.5mcg -) 2 puff IH BID [facility] Last Admin: 08/28/17 10:41 Dose: 2 puff Bupropion HCl (Wellbutrin Xl -) 150 mg PO DAILY [facility] Last Admin: 08/28/17 10:40 Dose: 150 mg Fluticasone Propionate (Flonase -) 1 spray NS DAILY [facility] Last Admin: 08/28/17 10:42 Dose: 1 spray Loratadine (Claritin -) 10 mg PO DAILY [facility] Last Admin: 08/28/17 10:41 Dose: 10 mg Methylprednisolone Sodium Succinate (Solu-Medrol -) 40 mg IVPUSH Q8H-IV [facility] Last Admin: 08/28/17 10:39 Dose: 40 mg Montelukast Sodium (Singulair -) 10 mg PO HS [facility] Last Admin: 08/27/17 21:47 Dose: 10 mg Naproxen (Naprosyn -) 500 mg PO BID [facility] Last Admin: 08/28/17 10:41 Dose: 500 mg Nystatin (Nystatin Oral Suspension -) 500,000 units PO BID [facility] Last Admin: 08/28/17 10:41 Dose: 500,000 units Polyethylene Glycol (Miralax (For Daily Use) -) 17 gm PO BID [facility] Last Admin: 08/28/17 10:41 Dose: Not Given Ranitidine HCl (Zantac -) 300 mg PO HS [facility] Last Admin: 08/27/17 21:54 Dose: 300 mg Senna (Senna -) 2 tab PO BID [facility] Last Admin: 08/28/17 10:40 Dose: 2 tab Constitutional: Yes: NAD HENT: Yes: Atraumatic, Normocephalic Neck: Yes: Supple, Trachea Midline Cardiovascular: Yes: Regular Rate and Rhythm, S1, S2. No: JVD, Gallop, Murmur, Rub, S3, S4 Respiratory: Yes: No wheeze appreciated, (+) coarse rhonchi GI: (+) BS, NT, ND EXT: (-) edema Neuro: non-focal Labs: Laboratory Results - last 24 hr 08/28/17 08/28/17 07:00 07:00 WBC 25.5 H RBC 4.74 Hgb 11.2 Hct 35.6 MCV 75.1 L MCH 23.6 L MCHC 31.5 L RDW 18.4 H Plt Count 396 MPV 7.7 Total Counted 100 Neutrophils % (Manual) 91.0 H* Band Neutrophils % 2.0 Lymphocytes % (Manual) 5.0 L Monocytes % (Manual) 2 L Manual Slide Review Done Hypersegmented Neuts 1+ Platelet Estimate Adequate Platelet Comment No clumping noted Anisocytosis 1+ Microcytosis 1+ Sodium 140 Potassium 4.3 Chloride 103 Carbon Dioxide 28 Anion Gap 9 BUN 25 H Creatinine 0.8 Random Glucose 175 H Calcium 8.9 Problem List - Problems (1) Asthma exacerbation Code(s): J45.901 - UNSPECIFIED ASTHMA WITH (ACUTE) EXACERBATION (2) COPD exacerbation Code(s): J44.1 - CHRONIC OBSTRUCTIVE PULMONARY DISEASE W (ACUTE) EXACERBATION (3) Respiratory distress Code(s): R06.00 - DYSPNEA, UNSPECIFIED (4) Moderate persistent chronic asthma with acute exacerbation Code(s): J45.41 - MODERATE PERSISTENT ASTHMA WITH (ACUTE) EXACERBATION Assessment/Plan IMP MODERATE CHRONIC PERSISTENT ASTHMA WITH ACUTE EXACERBATION ASTHMA/COPD SINUSITIS CHF PERIPHERAL NEUROPATHY GERD HYPOTHYROIDISM PLAN TAPER STEROIDS INHALED BRONCHODILATORS O2 SINGULAIR/CLARITIN ZITHROMAX 500mq PO TIW MONITOR PEAK FLOW SHOULD HAVE SLEEP WORKUP AFTER D/C TO R/O [facility] DR ZARATE
[2017-08-28] MEDS ORDERED: amLODIPine BESYLATE 2.5 MG TABLET (FP) PO ONE (20:30)
[2017-08-28] MEDS: RANITIDINE HCL 150 MG TABLET (FP) PO SCH (21:16)
[2017-08-28] MEDS: MONTELUKAST NA 10 MG TABLET PO SCH (21:17)
[2017-08-28] MEDS ORDERED: MELATONIN 5 MG TABLETS PO ONE (22:00)
[2017-08-29] MEDS: ACETYLCYSTEINE 20% 200MG/ML 4 ML VIAL *FOR ORAL / INH USE ONLY NEB SCH ×5 (00:59→23:40)
[2017-08-29] MEDS: ALBUTEROL SO4 0.083% IH SOL 2.5 MG/3 ML VIAL.NEB. NEB SCH ×5 (00:59→23:40)
[2017-08-29 07:17] LABS: MCH 23.8 pg (25.7-33.7); MCHC 31.2 g/dl (32.0-36.0); MEAN CELL VOLUME 76.1 fl (80-96); MEAN PLT VOLUME 7.8 fl (7.5-11.1); PLATELET COUNT 377 K/MM3 (134-434); RDW 18.6 % (11.6-15.6); WHITE BLOOD COUNT 26.2 K/mm3 (4.0-10.0)
[2017-08-29 07:50] LABS: ANION GAP 8 (8-16); CALCIUM 8.5 mg/dL (8.5-10.1); CO2 28 mmol/L (21-32)
[2017-08-29 07:53] LABS: CREATININE 0.8 mg/dL (0.55-1.02); GLUCOSE,RANDOM 154 mg/dL (74-106)
[2017-08-29 08:35] LABS: TOTAL CELLS COUNTED 100
[2017-08-29 08:36] LABS: METAMYELOCYTE 1 % (0-2); MYELOCYTE 3 % (0-2)
[2017-08-29 08:37] LABS: PLATELET ESTIMATE SLT INCREASE
[2017-08-29] MEDS ORDERED: PT OWN MED DRAWER 7, Y5N ONE (09:30)
[2017-08-29] MEDS: NAPROXEN 500 MG TABLET (FP) PO SCH ×2 (10:10→22:29)
[2017-08-29] MEDS: BUDESONIDE/FORMETEROL FUMARATE 80/4.5 mcg INHALER IH SCH ×2 (10:10→22:21)
[2017-08-29] MEDS: FLUTICASONE PROP 0.05% 16 GM NASAL SPRAY NS SCH (10:10)
[2017-08-29] MEDS: POLYETHYLENE GLYCOL 3350 119 GM BTL PO SCH ×2 (10:11→22:52)
[2017-08-29] MEDS: NYSTATIN 500,000 UNITS/5 ML SUSPENSION PO SCH ×2 (10:11→22:29)
[2017-08-29] MEDS: SENNOSIDES 8.6MG TABLET (FP) PO SCH ×2 (10:11→22:52)
[2017-08-29] MEDS: methylPREDNISolone NA SUCC 40 MG/1 ML VIAL IVPUSH SCH ×2 (10:11→22:29)
[2017-08-29] MEDS: amLODIPine BESYLATE 5 MG TABLET (FP) PO SCH (10:11)
[2017-08-29] MEDS: LORATADINE 10 MG TABLET PO SCH (10:11)
[2017-08-29] MEDS: BACLOFEN 10 MG TABLET (FP) PO SCH ×2 (10:11→22:29)
[2017-08-29] MEDS: amLODIPine BESYLATE 2.5 MG TABLET (FP) PO SCH (10:18)
--- NOTE | 2017-08-29 12:03 | PN ---
Progress Note (short form) - Note Progress Note: Breathing feels overall better today. Still with some congested cough. No hemoptysis. Intake & Output 08/26/17 08/27/17 08/28/17 08/29/17 23:59 23:59 23:59 23:59 Intake Total 367 107 7915 620 Output Total 1 2 Balance 371 887 0725 620 Last Vital Signs Temp Pulse Resp BP Pulse Ox 97.6 F 74 18 128/68 95 08/29/17 06:00 08/29/17 06:00 08/29/17 06:00 08/29/17 06:00 08/28/17 22:00 Active Medications Acetaminophen (Tylenol -) 325 mg PO Q6H PRN PRN Reason: PAIN Acetylcysteine (Mucomyst 20 Oral / Inh Use Only*) 600 mg NEB QIDR [facility] Last Admin: 08/29/17 11:08 Dose: 600 mg Albuterol Sulfate (Ventolin 0.083% Nebulizer Soln -) 1 amp NEB QIDR [facility] Last Admin: 08/29/17 11:08 Dose: 1 amp Amlodipine Besylate (Norvasc -) 5 mg PO DAILY [facility] Last Admin: 08/29/17 10:11 Dose: 5 mg Baclofen (Lioresal -) 10 mg PO BID [facility] Last Admin: 08/29/17 10:11 Dose: 10 mg Budesonide/Formoterol Fumarate (Symbicort 80/4.5mcg -) 2 puff IH BID [facility] Last Admin: 08/29/17 10:10 Dose: 2 puff Bupropion HCl (Wellbutrin Xl -) 150 mg PO DAILY [facility] Last Admin: 08/29/17 10:11 Dose: 150 mg Fluticasone Propionate (Flonase -) 1 spray NS DAILY [facility] Last Admin: 08/29/17 10:10 Dose: 1 spray Loratadine (Claritin -) 10 mg PO DAILY [facility] Last Admin: 08/29/17 10:11 Dose: 10 mg Methylprednisolone Sodium Succinate (Solu-Medrol -) 40 mg IVPUSH BID [facility] Last Admin: 08/29/17 10:11 Dose: 40 mg Montelukast Sodium (Singulair -) 10 mg PO HS [facility] Last Admin: 08/28/17 21:17 Dose: 10 mg Naproxen (Naprosyn -) 500 mg PO BID [facility] Last Admin: 08/29/17 10:10 Dose: 500 mg Nystatin (Nystatin Oral Suspension -) 500,000 units PO BID [facility] Last Admin: 08/29/17 10:11 Dose: 500,000 units Polyethylene Glycol (Miralax (For Daily Use) -) 17 gm PO BID [facility] Last Admin: 08/29/17 10:11 Dose: Not Given Ramelteon (Rozerem) [address] [facility] Ranitidine HCl (Zantac -) 300 mg PO HS [facility] Last Admin: 08/28/17 21:16 Dose: 300 mg Senna (Senna -) 2 tab PO BID [facility] Last Admin: 08/29/17 10:11 Dose: Not Given Constitutional: Yes: NAD HENT: Yes: Atraumatic, Normocephalic Neck: Yes: Supple, Trachea Midline Cardiovascular: Yes: Regular Rate and Rhythm, S1, S2. No: JVD, Gallop, Murmur, Rub, S3, S4 Respiratory: Yes: No wheeze appreciated, (+) coarse rhonchi GI: (+) BS, NT, ND EXT: (-) edema Neuro: non-focal Labs: Laboratory Results - last 24 hr 08/29/17 08/29/17 05:20 05:20 WBC 26.2 H RBC 4.69 Hgb 11.1 Hct 35.7 MCV 76.1 L MCH 23.8 L MCHC 31.2 L RDW 18.6 H Plt Count 377 MPV 7.8 Total Counted 100 Neutrophils % (Manual) 79.0 Band Neutrophils % 2.0 Lymphocytes % (Manual) 9.0 D Monocytes % (Manual) 6 D Myelocytes % (Man) 3 H Metamyelocytes 1 Manual Slide Review Done Platelet Estimate Slt increase Sodium 141 Potassium 4.6 Chloride 105 Carbon Dioxide 28 Anion Gap 8 BUN 27 H Creatinine 0.8 Random Glucose 154 H Calcium 8.5 Problem List - Problems (1) Asthma exacerbation Code(s): J45.901 - UNSPECIFIED ASTHMA WITH (ACUTE) EXACERBATION (2) COPD exacerbation Code(s): J44.1 - CHRONIC OBSTRUCTIVE PULMONARY DISEASE W (ACUTE) EXACERBATION (3) Respiratory distress Code(s): R06.00 - DYSPNEA, UNSPECIFIED (4) Moderate persistent chronic asthma with acute exacerbation Code(s): J45.41 - MODERATE PERSISTENT ASTHMA WITH (ACUTE) EXACERBATION Assessment/Plan IMP MODERATE CHRONIC PERSISTENT ASTHMA WITH ACUTE EXACERBATION ASTHMA/COPD SINUSITIS CHF PERIPHERAL NEUROPATHY GERD HYPOTHYROIDISM PLAN CAN CHANGE TO PREDNISONE INHALED BRONCHODILATORS O2 SINGULAIR/CLARITIN ZITHROMAX 500mq PO TIW MONITOR PEAK FLOW SHOULD HAVE SLEEP WORKUP AFTER D/C TO R/O [facility] DR ZARATE
--- NOTE | 2017-08-29 12:05 | PN ---
Progress Note, Physician History of Present Illness: Pt's cough, some improvement; still bring up colored sputum Pt w/o CP, palp, abd pain; pt's constipation improved. Pt c/o insomnia, Rozerem not available last night. - Current Medication List Current Medications: Active Medications Acetaminophen (Tylenol -) 325 mg PO Q6H PRN PRN Reason: PAIN Acetylcysteine (Mucomyst 20 Oral / Inh Use Only*) 600 mg NEB QIDR [facility] Last Admin: 08/29/17 11:08 Dose: 600 mg Albuterol Sulfate (Ventolin 0.083% Nebulizer Soln -) 1 amp NEB QIDR [facility] Last Admin: 08/29/17 11:08 Dose: 1 amp Amlodipine Besylate (Norvasc -) 5 mg PO DAILY [facility] Last Admin: 08/29/17 10:11 Dose: 5 mg Baclofen (Lioresal -) 10 mg PO BID [facility] Last Admin: 08/29/17 10:11 Dose: 10 mg Budesonide/Formoterol Fumarate (Symbicort 80/4.5mcg -) 2 puff IH BID [facility] Last Admin: 08/29/17 10:10 Dose: 2 puff Bupropion HCl (Wellbutrin Xl -) 150 mg PO DAILY [facility] Last Admin: 08/29/17 10:11 Dose: 150 mg Fluticasone Propionate (Flonase -) 1 spray NS DAILY [facility] Last Admin: 08/29/17 10:10 Dose: 1 spray Loratadine (Claritin -) 10 mg PO DAILY [facility] Last Admin: 08/29/17 10:11 Dose: 10 mg Methylprednisolone Sodium Succinate (Solu-Medrol -) 40 mg IVPUSH BID [facility] Last Admin: 08/29/17 10:11 Dose: 40 mg Montelukast Sodium (Singulair -) 10 mg PO HS [facility] Last Admin: 08/28/17 21:17 Dose: 10 mg Naproxen (Naprosyn -) 500 mg PO BID [facility] Last Admin: 08/29/17 10:10 Dose: 500 mg Nystatin (Nystatin Oral Suspension -) 500,000 units PO BID [facility] Last Admin: 08/29/17 10:11 Dose: 500,000 units Polyethylene Glycol (Miralax (For Daily Use) -) 17 gm PO BID [facility] Last Admin: 08/29/17 10:11 Dose: Not Given Ramelteon (Rozerem) 8 mg PO HS [facility] Ranitidine HCl (Zantac -) 300 mg PO HS [facility] Last Admin: 08/28/17 21:16 Dose: 300 mg Senna (Senna -) 2 tab PO BID [facility] Last Admin: 08/29/17 10:11 Dose: Not Given - Objective Vital Signs: Vital Signs Temperature 97.6 F 08/29/17 06:00 Pulse Rate 74 08/29/17 06:00 Respiratory Rate 18 08/29/17 06:00 Blood Pressure 128/68 08/29/17 06:00 O2 Sat by Pulse Oximetry (%) 95 08/28/17 22:00 Constitutional: Yes: No Distress Cardiovascular: Yes: Regular Rate and Rhythm, S1, S2 Respiratory: Yes: Regular, Rales (improving, scattered), Rhonchi (improving, scattered), Wheezes Gastrointestinal: Yes: Normal Bowel Sounds, Soft, Abdomen, Obese. No: Tenderness Edema: No (pretibial) Neurological: Yes: Alert, Oriented Labs: CBC, BMP 08/29/17 05:20 08/29/17 05:20 Problem List - Problems (1) COPD exacerbation Code(s): J44.1 - CHRONIC OBSTRUCTIVE PULMONARY DISEASE W (ACUTE) EXACERBATION (2) CHF (congestive heart failure) Code(s): I50.9 - HEART FAILURE, UNSPECIFIED (3) Shoulder pain, left Code(s): M25.512 - PAIN IN LEFT SHOULDER (4) Constipation Code(s): K59.00 - CONSTIPATION, UNSPECIFIED (5) Leukocytosis Code(s): D72.829 - ELEVATED WHITE BLOOD CELL COUNT, UNSPECIFIED (6) Asthma exacerbation Code(s): J45.901 - UNSPECIFIED ASTHMA WITH (ACUTE) EXACERBATION Assessment/Plan IV Solu-medrol- joseph yesterday; usually taper takes longer in her case ( secondary to advanced COPD, Asthma) Pulmonary consult appreciated. Ortho consult for left shoulder pain appreciated OOBTC daily. PT eval. Cont Miralax, Senna. Cont Mucomyst. Cont Hycodan PRN. Trial of Rozerem Case was d/w pt's nurse. AM labs
[2017-08-29] MEDS: MONTELUKAST NA 10 MG TABLET PO SCH (22:29)
[2017-08-29] MEDS: RANITIDINE HCL 150 MG TABLET (FP) PO SCH (22:29)
[2017-08-29] MEDS: MELATONIN 5 MG TABLETS PO SCH (22:29)
[2017-08-30] MEDS: ACETYLCYSTEINE 20% 200MG/ML 4 ML VIAL *FOR ORAL / INH USE ONLY NEB SCH ×4 (06:40→23:13)
[2017-08-30] MEDS: ALBUTEROL SO4 0.083% IH SOL 2.5 MG/3 ML VIAL.NEB. NEB SCH ×4 (06:40→23:13)
[2017-08-30 07:44] LABS: MCHC 31.5 g/dl (32.0-36.0); MEAN CELL VOLUME 76.1 fl (80-96); MEAN PLT VOLUME 7.6 fl (7.5-11.1); PLATELET COUNT 376 K/MM3 (134-434); RDW 18.7 % (11.6-15.6); WHITE BLOOD COUNT 26.6 K/mm3 (4.0-10.0)
[2017-08-30 08:07] LABS: ANION GAP 9 (8-16); CALCIUM 9.1 mg/dL (8.5-10.1); CO2 29 mmol/L (21-32); CREATININE 0.8 mg/dL (0.55-1.02); GLUCOSE,RANDOM 147 mg/dL (74-106)
[2017-08-30] MEDS: NYSTATIN 500,000 UNITS/5 ML SUSPENSION PO SCH ×2 (10:26→22:00)
[2017-08-30] MEDS: NAPROXEN 500 MG TABLET (FP) PO SCH ×2 (10:26→22:00)
[2017-08-30] MEDS: FLUTICASONE PROP 0.05% 16 GM NASAL SPRAY NS SCH (10:26)
[2017-08-30] MEDS: amLODIPine BESYLATE 5 MG TABLET (FP) PO SCH (10:26)
[2017-08-30] MEDS: LORATADINE 10 MG TABLET PO SCH (10:26)
[2017-08-30] MEDS: methylPREDNISolone NA SUCC 40 MG/1 ML VIAL IVPUSH SCH ×2 (10:26→22:03)
[2017-08-30] MEDS: BACLOFEN 10 MG TABLET (FP) PO SCH ×2 (10:26→21:59)
[2017-08-30] MEDS: BUDESONIDE/FORMETEROL FUMARATE 80/4.5 mcg INHALER IH SCH ×2 (10:27→22:05)
[2017-08-30] MEDS: POLYETHYLENE GLYCOL 3350 119 GM BTL PO SCH ×2 (11:07→22:00)
[2017-08-30] MEDS: SENNOSIDES 8.6MG TABLET (FP) PO SCH ×2 (11:07→22:02)
--- NOTE | 2017-08-30 12:48 | PN ---
Teaching Attending Note Name of Resident: Jakob Cheney ATTENDING PHYSICIAN STATEMENT I saw and evaluated the patient. I reviewed the resident's note and discussed the case with the resident. I agree with the resident's findings and plan as documented. PULMONARY ALERT,NAD,LESS DYSPNEIC,LESS COUGH Assessment/Plan IMP MODERATE CHRONIC PERSISTENT ASTHMA WITH ACUTE EXACERBATION ASTHMA/COPD SINUSITIS CHF PERIPHERAL NEUROPATHY GERD HYPOTHYROIDISM PLAN STEROID TAPER INHALED BRONCHODILATORS O2 DALIRESP ZITHROMAX 500mq PO TIW MONITOR PEAK FLOW DR GRAHAM Problem List - Problems (1) Asthma exacerbation Code(s): J45.901 - UNSPECIFIED ASTHMA WITH (ACUTE) EXACERBATION (2) COPD exacerbation Code(s): J44.1 - CHRONIC OBSTRUCTIVE PULMONARY DISEASE W (ACUTE) EXACERBATION (3) Respiratory distress Code(s): R06.00 - DYSPNEA, UNSPECIFIED (4) Moderate persistent chronic asthma with acute exacerbation Code(s): J45.41 - MODERATE PERSISTENT ASTHMA WITH (ACUTE) EXACERBATION ASSESSMENT AND PLAN: Problem List - Problems (1) Asthma exacerbation Code(s): J45.901 - UNSPECIFIED ASTHMA WITH (ACUTE) EXACERBATION (2) COPD exacerbation Code(s): J44.1 - CHRONIC OBSTRUCTIVE PULMONARY DISEASE W (ACUTE) EXACERBATION (3) Respiratory distress Code(s): R06.00 - DYSPNEA, UNSPECIFIED (4) Moderate persistent chronic asthma with acute exacerbation Code(s): J45.41 - MODERATE PERSISTENT ASTHMA WITH (ACUTE) EXACERBATION
--- NOTE | 2017-08-30 13:05 | PN ---
Progress Note, Physician History of Present Illness: f/u of pulmonary consultation Patient seen and examined at bedside. Patient states that her breathing is improved today. Transitioning patient to PO steroids in anticipation of discharge - Current Medication List Current Medications: Active Medications Acetaminophen (Tylenol -) 325 mg PO Q6H PRN PRN Reason: PAIN Acetylcysteine (Mucomyst 20 Oral / Inh Use Only*) 600 mg NEB QIDR [facility] Last Admin: 08/30/17 11:25 Dose: 600 mg Albuterol Sulfate (Ventolin 0.083% Nebulizer Soln -) 1 amp NEB QIDR [facility] Last Admin: 08/30/17 11:25 Dose: 1 amp Amlodipine Besylate (Norvasc -) 5 mg PO DAILY [facility] Last Admin: 08/30/17 10:26 Dose: 5 mg Baclofen (Lioresal -) 10 mg PO BID [facility] Last Admin: 08/30/17 10:26 Dose: 10 mg Budesonide/Formoterol Fumarate (Symbicort 80/4.5mcg -) 2 puff IH BID [facility] Last Admin: 08/30/17 10:27 Dose: 2 puff Bupropion HCl (Wellbutrin Xl -) 150 mg PO DAILY [facility] Last Admin: 08/30/17 10:26 Dose: 150 mg Fluticasone Propionate (Flonase -) 1 spray NS DAILY [facility] Last Admin: 08/30/17 10:26 Dose: 1 spray Loratadine (Claritin -) 10 mg PO DAILY [facility] Last Admin: 08/30/17 10:26 Dose: 10 mg Melatonin (Melatonin) 10 mg PO HS [facility] Last Admin: 08/29/17 22:29 Dose: 10 mg Methylprednisolone Sodium Succinate (Solu-Medrol -) 40 mg IVPUSH BID [facility] Last Admin: 08/30/17 10:26 Dose: 40 mg Montelukast Sodium (Singulair -) 10 mg PO HS [facility] Last Admin: 08/29/17 22:29 Dose: 10 mg Naproxen (Naprosyn -) 500 mg PO BID [facility] Last Admin: 08/30/17 10:26 Dose: 500 mg Nystatin (Nystatin Oral Suspension -) 500,000 units PO BID [facility] Last Admin: 08/30/17 10:26 Dose: 500,000 units Polyethylene Glycol (Miralax (For Daily Use) -) 17 gm PO BID [facility] Last Admin: 08/30/17 11:07 Dose: Not Given Ramelteon (Rozerem) 8 mg PO HS [facility] Ranitidine HCl (Zantac -) 300 mg PO HS [facility] Last Admin: 08/29/17 22:29 Dose: 300 mg Senna (Senna -) 2 tab PO BID [facility] Last Admin: 08/30/17 11:07 Dose: Not Given - Objective Vital Signs: Vital Signs Temperature 99.2 F 08/30/17 09:30 Pulse Rate 86 08/30/17 09:30 Respiratory Rate 18 08/30/17 09:30 Blood Pressure 118/90 08/30/17 09:30 O2 Sat by Pulse Oximetry (%) 96 08/30/17 09:00 Constitutional: Yes: Well Nourished, No Distress, Calm HENT: Yes: Atraumatic, Normocephalic Neck: Yes: Supple, Trachea Midline Cardiovascular: Yes: Regular Rate and Rhythm, S1, S2. 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 The patient has a severe persistent asthma and is currently on multiple bronchodilators as well as both inhaled and oral steroids and continues to have repeated infections and hospitalizations despite therapy. Patient currently only tachycardic, but afebrile at this time. #Persistant, productive cough 2/2 severe asthma vs infectious eitology -solu-medrol 60mg Q12h tapered to 40mg BID -spiriva 2 puffs BID -albuterol PRN for SOB -obtain baseline peak flow and monitor daily -DaliResp 500mcg daily -patient has refractory asthma and may benefit from additional medications or possibly invasive procedures
--- NOTE | 2017-08-30 17:05 | PROC ---
Procedure Note Procedure: SHOULDER STILL WITH SIGNIFICANT PAIN PLEASE ADD WARM SOAKS DC WHEN MEDICALLY OK
--- NOTE | 2017-08-30 19:28 | PN ---
Progress Note, Physician History of Present Illness: Pt's cough, improving. Pt w/o CP, palp, abd pain; pt's constipation improved. Pt c/o insomnia, Rozerem not available last night. - Current Medication List Current Medications: Active Medications Acetaminophen (Tylenol -) 325 mg PO Q6H PRN PRN Reason: PAIN Acetylcysteine (Mucomyst 20 Oral / Inh Use Only*) 600 mg NEB QIDR [facility] Last Admin: 08/30/17 17:05 Dose: 600 mg Albuterol Sulfate (Ventolin 0.083% Nebulizer Soln -) 1 amp NEB QIDR [facility] Last Admin: 08/30/17 17:05 Dose: 1 amp Amlodipine Besylate (Norvasc -) 5 mg PO DAILY [facility] Last Admin: 08/30/17 10:26 Dose: 5 mg Baclofen (Lioresal -) 10 mg PO BID [facility] Last Admin: 08/30/17 10:26 Dose: 10 mg Budesonide/Formoterol Fumarate (Symbicort 80/4.5mcg -) 2 puff IH BID [facility] Last Admin: 08/30/17 10:27 Dose: 2 puff Bupropion HCl (Wellbutrin Xl -) 150 mg PO DAILY [facility] Last Admin: 08/30/17 10:26 Dose: 150 mg Fluticasone Propionate (Flonase -) 1 spray NS DAILY [facility] Last Admin: 08/30/17 10:26 Dose: 1 spray Loratadine (Claritin -) 10 mg PO DAILY [facility] Last Admin: 08/30/17 10:26 Dose: 10 mg Melatonin (Melatonin) 10 mg PO HS [facility] Last Admin: 08/29/17 22:29 Dose: 10 mg Methylprednisolone Sodium Succinate (Solu-Medrol -) 40 mg IVPUSH BID [facility] Last Admin: 08/30/17 10:26 Dose: 40 mg Montelukast Sodium (Singulair -) 10 mg PO HS [facility] Last Admin: 08/29/17 22:29 Dose: 10 mg Naproxen (Naprosyn -) 500 mg PO BID [facility] Last Admin: 08/30/17 10:26 Dose: 500 mg Nystatin (Nystatin Oral Suspension -) 500,000 units PO BID [facility] Last Admin: 08/30/17 10:26 Dose: 500,000 units Polyethylene Glycol (Miralax (For Daily Use) -) 17 gm PO BID [facility] Last Admin: 08/30/17 11:07 Dose: Not Given Ramelteon (Rozerem) 8 mg PO HS [facility] Ranitidine HCl (Zantac -) 300 mg PO HS [facility] Last Admin: 08/29/17 22:29 Dose: 300 mg Senna (Senna -) 2 tab PO BID [facility] Last Admin: 08/30/17 11:07 Dose: Not Given - Objective Vital Signs: Vital Signs Temperature 98.7 F 08/30/17 15:04 Pulse Rate 90 08/30/17 15:04 Respiratory Rate 18 08/30/17 15:04 Blood Pressure 154/90 08/30/17 15:04 O2 Sat by Pulse Oximetry (%) 96 08/30/17 09:00 Constitutional: Yes: No Distress, Calm Cardiovascular: Yes: Regular Rate and Rhythm, S1, S2 Respiratory: Yes: Regular, Rhonchi, Wheezes Gastrointestinal: Yes: Normal Bowel Sounds, Soft, Abdomen, Obese. No: Tenderness Edema: No Neurological: Yes: Alert, Oriented Labs: CBC, BMP 08/30/17 06:20 08/30/17 06:20 Problem List - Problems (1) COPD exacerbation Code(s): J44.1 - CHRONIC OBSTRUCTIVE PULMONARY DISEASE W (ACUTE) EXACERBATION (2) CHF (congestive heart failure) Code(s): I50.9 - HEART FAILURE, UNSPECIFIED (3) Shoulder pain, left Code(s): M25.512 - PAIN IN LEFT SHOULDER (4) Constipation Code(s): K59.00 - CONSTIPATION, UNSPECIFIED (5) Leukocytosis Code(s): D72.829 - ELEVATED WHITE BLOOD CELL COUNT, UNSPECIFIED (6) Asthma exacerbation Code(s): J45.901 - UNSPECIFIED ASTHMA WITH (ACUTE) EXACERBATION Assessment/Plan IV Solu-medrol; usually taper takes longer in her case ( secondary to advanced COPD, Asthma) Pulmonary consult appreciated. Ortho consult for left shoulder pain appreciated OOBTC daily. PT eval. Cont Miralax, Senna. Cont Mucomyst. Cont Hycodan PRN. Rozerem- if available Case was d/w pt's nurse. DC planning in AM
[2017-08-30] MEDS ORDERED: PT OWN MED DRAWER 7, Y5N ONE (20:23)
[2017-08-30] MEDS: MELATONIN 5 MG TABLETS PO SCH (21:59)
[2017-08-30] MEDS: MONTELUKAST NA 10 MG TABLET PO SCH (22:03)
[2017-08-30] MEDS: RANITIDINE HCL 150 MG TABLET (FP) PO SCH (22:05)
[2017-08-31] MEDS: ALBUTEROL SO4 0.083% IH SOL 2.5 MG/3 ML VIAL.NEB. NEB SCH ×2 (06:58→11:11)
[2017-08-31] MEDS: ACETYLCYSTEINE 20% 200MG/ML 4 ML VIAL *FOR ORAL / INH USE ONLY NEB SCH ×2 (06:58→11:11)
[2017-08-31] MEDS ORDERED: PT OWN MED DRAWER 7, Y5N ONE (09:46)
[2017-08-31] MEDS: LORATADINE 10 MG TABLET PO SCH (10:05)
[2017-08-31] MEDS: FLUTICASONE PROP 0.05% 16 GM NASAL SPRAY NS SCH (10:05)
[2017-08-31] MEDS: BACLOFEN 10 MG TABLET (FP) PO SCH (10:05)
[2017-08-31] MEDS: NAPROXEN 500 MG TABLET (FP) PO SCH (10:06)
[2017-08-31] MEDS: POLYETHYLENE GLYCOL 3350 119 GM BTL PO SCH (10:06)
[2017-08-31] MEDS: NYSTATIN 500,000 UNITS/5 ML SUSPENSION PO SCH (10:07)
[2017-08-31] MEDS: amLODIPine BESYLATE 5 MG TABLET (FP) PO SCH (10:07)
[2017-08-31] MEDS: SENNOSIDES 8.6MG TABLET (FP) PO SCH (10:08)
[2017-08-31] MEDS: BUDESONIDE/FORMETEROL FUMARATE 80/4.5 mcg INHALER IH SCH (10:09)
[2017-08-31] MEDS: methylPREDNISolone NA SUCC 40 MG/1 ML VIAL IVPUSH SCH (10:09)
[2017-08-31 11:11] VITALS: PULSE 92
--- NOTE | 2017-08-31 12:06 | PN ---
Progress Note, Physician History of Present Illness: f/u of pulmonary consultation Patient seen and examined at bedside. Patient states that her breathing is improved today. Patient for discharge on PO steroids today. - Current Medication List Current Medications: Active Medications Acetaminophen (Tylenol -) 325 mg PO Q6H PRN PRN Reason: PAIN Acetylcysteine (Mucomyst 20 Oral / Inh Use Only*) 600 mg NEB QIDR [facility] Last Admin: 08/31/17 11:11 Dose: 600 mg Albuterol Sulfate (Ventolin 0.083% Nebulizer Soln -) 1 amp NEB QIDR [facility] Last Admin: 08/31/17 11:11 Dose: 1 amp Amlodipine Besylate (Norvasc -) 5 mg PO DAILY [facility] Last Admin: 08/31/17 10:07 Dose: 5 mg Baclofen (Lioresal -) 10 mg PO BID [facility] Last Admin: 08/31/17 10:05 Dose: 10 mg Budesonide/Formoterol Fumarate (Symbicort 80/4.5mcg -) 2 puff IH BID [facility] Last Admin: 08/31/17 10:09 Dose: 2 puff Bupropion HCl (Wellbutrin Xl -) 150 mg PO DAILY [facility] Last Admin: 08/31/17 10:09 Dose: 150 mg Fluticasone Propionate (Flonase -) 1 spray NS DAILY [facility] Last Admin: 08/31/17 10:05 Dose: 1 spray Loratadine (Claritin -) 10 mg PO DAILY [facility] Last Admin: 08/31/17 10:05 Dose: 10 mg Melatonin (Melatonin) 10 mg PO HS [facility] Last Admin: 08/30/17 21:59 Dose: 10 mg Methylprednisolone Sodium Succinate (Solu-Medrol -) 40 mg IVPUSH BID [facility] Last Admin: 08/31/17 10:09 Dose: 40 mg Montelukast Sodium (Singulair -) 10 mg PO HS [facility] Last Admin: 08/30/17 22:03 Dose: 10 mg Naproxen (Naprosyn -) 500 mg PO BID [facility] Last Admin: 08/31/17 10:06 Dose: 500 mg Nystatin (Nystatin Oral Suspension -) 500,000 units PO BID [facility] Last Admin: 08/31/17 10:07 Dose: 500,000 units Polyethylene Glycol (Miralax (For Daily Use) -) 17 gm PO BID [facility] Last Admin: 08/31/17 10:06 Dose: Not Given Ramelteon (Rozerem) 8 mg PO HS [facility] Ranitidine HCl (Zantac -) 300 mg PO HS [facility] Last Admin: 08/30/17 22:05 Dose: 300 mg Senna (Senna -) 2 tab PO BID [facility] Last Admin: 08/31/17 10:08 Dose: 2 tab - Objective Vital Signs: Vital Signs Temperature 98.5 F 08/31/17 06:00 Pulse Rate 92 H 08/31/17 11:11 Respiratory Rate 18 08/31/17 06:00 Blood Pressure 128/6 08/31/17 06:00 O2 Sat by Pulse Oximetry (%) 94 L 08/31/17 11:11 Constitutional: Yes: Well Nourished, No Distress, Calm HENT: Yes: Atraumatic, Normocephalic Neck: Yes: Supple, Trachea Midline Cardiovascular: Yes: Regular Rate and Rhythm, S1, S2. No: Bruit, JVD, Gallop, Murmur, Rub, S3, S4 Edema: No Labs: CBC, BMP 08/30/17 06:20 08/30/17 06:20 Assessment/Plan The Patient is a 62 yo f w/ PMH asthma/COPD and CHF who was sent to the ED by her title i assistant for a cough and progressively worsening SOB which failed outpatient therapy. The patient has a severe persistent asthma and is currently on multiple bronchodilators as well as both inhaled and oral steroids and continues to have repeated infections and hospitalizations despite therapy. Patient currently only tachycardic, but afebrile at this time. #Persistant, productive cough 2/2 severe asthma vs infectious eitology -Patient for discharge home today on slow taper of steroids as she is prone to adrenal crisis. -Patient encouraged to follow closely with Dr. James and Dr. Ashanti Hernández 500mcg daily -patient has refractory asthma and may benefit from additional medications or possibly invasive procedures
--- NOTE | 2017-08-31 12:16 | PN ---
Progress Note (short form) - Note Progress Note: PULMONARY Doing well. Breathing better. Minimal cough and wheezing. Last Vital Signs Temp Pulse Resp BP Pulse Ox 98.5 F 92 H 18 128/6 94 L 08/31/17 06:00 08/31/17 11:11 08/31/17 06:00 08/31/17 06:00 08/31/17 11:11 Gen: NAD at rest Heart: RRR Lung: scattered wheezes Abd: soft, nontender Ext: no edema CBC, BMP 08/30/17 06:20 08/30/17 06:20 Active Medications Acetaminophen (Tylenol -) 325 mg PO Q6H PRN PRN Reason: PAIN Acetylcysteine (Mucomyst 20 Oral / Inh Use Only*) 600 mg NEB QIDR [facility] Last Admin: 08/31/17 11:11 Dose: 600 mg Albuterol Sulfate (Ventolin 0.083% Nebulizer Soln -) 1 amp NEB QIDR [facility] Last Admin: 08/31/17 11:11 Dose: 1 amp Amlodipine Besylate (Norvasc -) 5 mg PO DAILY [facility] Last Admin: 08/31/17 10:07 Dose: 5 mg Baclofen (Lioresal -) 10 mg PO BID [facility] Last Admin: 08/31/17 10:05 Dose: 10 mg Budesonide/Formoterol Fumarate (Symbicort 80/4.5mcg -) 2 puff IH BID [facility] Last Admin: 08/31/17 10:09 Dose: 2 puff Bupropion HCl (Wellbutrin Xl -) 150 mg PO DAILY [facility] Last Admin: 08/31/17 10:09 Dose: 150 mg Fluticasone Propionate (Flonase -) 1 spray NS DAILY [facility] Last Admin: 08/31/17 10:05 Dose: 1 spray Loratadine (Claritin -) 10 mg PO DAILY [facility] Last Admin: 08/31/17 10:05 Dose: 10 mg Melatonin (Melatonin) 10 mg PO HS [facility] Last Admin: 08/30/17 21:59 Dose: 10 mg Methylprednisolone Sodium Succinate (Solu-Medrol -) 40 mg IVPUSH BID [facility] Last Admin: 08/31/17 10:09 Dose: 40 mg Montelukast Sodium (Singulair -) 10 mg PO HS [facility] Last Admin: 08/30/17 22:03 Dose: 10 mg Naproxen (Naprosyn -) 500 mg PO BID [facility] Last Admin: 08/31/17 10:06 Dose: 500 mg Nystatin (Nystatin Oral Suspension -) 500,000 units PO BID [facility] Last Admin: 08/31/17 10:07 Dose: 500,000 units Polyethylene Glycol (Miralax (For Daily Use) -) 17 gm PO BID [facility] Last Admin: 08/31/17 10:06 Dose: Not Given Ramelteon (Rozerem) 8 mg PO [facility] Ranitidine HCl (Zantac -) 300 mg PO [facility] Last Admin: 08/30/17 22:05 Dose: 300 mg Senna (Senna -) 2 tab PO BID [facility] Last Admin: 08/31/17 10:08 Dose: 2 tab A/P Acute Asthma Exacerbation CHF GERD Hypothyroidism - can change steroids to PO and taper as outpt - inhaled bronchodilators - monitor peak flow - DVT prophylaxis
[2017-08-31 13:26] VITALS: BP 135/73; TEMP 97.2
--- NOTE | 2017-08-31 14:11 | DS ---
Physical Examination Vital Signs: Vital Signs Temperature 97.2 F L 08/31/17 10:00 Pulse Rate 92 H 08/31/17 11:11 Respiratory Rate 18 08/31/17 10:00 Blood Pressure 135/73 08/31/17 10:00 O2 Sat by Pulse Oximetry (%) 94 L 08/31/17 11:11 Findings/Remarks: Pt w/o fever, chills, SOB, CP, palp. Pt's cough is getter; pt brings up less sputum. Constitutional: Yes: No Distress, Calm Cardiovascular: Yes: Regular Rate and Rhythm, S1, S2 Respiratory: Yes: Regular, Rhonchi (scattered, decreased), Wheezes (scattered, decreased) Gastrointestinal: Yes: Normal Bowel Sounds, Soft. No: Tenderness Edema: No Neurological: Yes: Alert, Oriented Labs: CBC, BMP 08/30/17 06:20 08/30/17 06:20 Discharge Summary Reason For Visit: ASTHMA Current Active Problems Asthma (Acute) CHF (congestive heart failure) (Acute) Constipation (Acute) Leukocytosis (Acute) Moderate persistent chronic asthma with acute exacerbation (Acute) Shoulder pain, left (Acute) Procedures: Principal: CXR Hospital Course: Pt with known Asthma and COPD (on chronic Prednisone) came to ER from Pulmonary office as she fell outpatient treatment of COPD exacerbation. Pt was admitted and started on IV steroids, with sloww improvement in the symptoms. Pt was treated alos for constipation with extra Miralax and Lasix. Pt' s blood pressure was noticed to be elevated (new) and required treatment with Norvasc. Pt to be DC'ed home with outpatient f/u. Condition: Good - Instructions Diet, Activity, Other Instructions: Diet: low salt, low cholesterol, NCS Referrals: Amarjit Burrell MD [Primary Care Provider] - (this week-call for apppoitment.) Adalid James MD [Staff Physician] - (next week- call for appointmnet) Disposition: HOME - Home Medications Comprehensive Discharge Medication List: Ambulatory Orders Albuterol Sulfate Inhaler - [Ventolin HFA Inhaler -] 2 puff IH Q4H 09/11/15 BUPROPion HCL "SR" [Wellbutrin Sr -] 150 mg PO DAILY 02/14/17 Montelukast Na [Singulair -] 10 mg PO HS 02/14/17 Acetaminophen [Tylenol .Regular Strength -] 325 mg PO Q6H PRN #0 tablet Albuterol 0.083% Nebulizer Yadira [Ventolin 0.083% Nebulizer Soln -] 1 amp NEB Q4H PRN #0 amp 03/03/17 Albuterol 2.5/Ipratropium 0.5 [Duoneb -] 1 amp NEB TIDR amp 03/03/17 Polyethylene Glycol 3350 [Miralax 119 gm Btl -] 17 gm PO DAILY bottle 03/03/17 Prednisone [Deltasone -] 20 mg PO DAILY 07/21/17 Baclofen 10 mg PO BID 08/23/17 Budesonide/Formeterol Fumarate [SYMBICORT 80/4.5mcg -] 2 inh PO BID 08/23/17 Cetirizine HCl [Zyrtec -] 10 mg PO DAILY 08/23/17 Cyclosporine [Restasis] 1 each OP ASDIR 08/23/17 Famotidine [Pepcid] 40 mg PO DAILY 08/23/17 Fluticasone Prop 0.05% Nasal [Flonase -] 1 - 2 spray NS DAILY 08/23/17 Lorazepam 1 mg PO DAILY PRN 08/23/17 Naproxen [Naprosyn -] 500 mg PO BID 08/23/17 Nystatin Oral Suspension - [Nystatin Oral Susp 983373 Units/5 ML -] 5 ml PO BID 08/23/17
== END 2017-08-31 16:37 | disposition home or self-care (01) | DRG 191 ==
LOC: JER 12:34 → JERBED 18:08 → J5S 20:40
PROVIDERS: ADMIT Specialist; ATTEND Specialist
DX: J44.1 Chronic obstructive pulmonary disease with (acute) exacerbation (principal); J45.41 Moderate persistent asthma with (acute) exacerbation; I50.30 Unspecified diastolic (congestive) heart failure; K21.9 Gastro-esophageal reflux disease without esophagitis; E03.9 Hypothyroidism, unspecified; D72.829 Elevated white blood cell count, unspecified; M25.512 Pain in left shoulder; J32.9 Chronic sinusitis, unspecified; G62.9 Polyneuropathy, unspecified; Z87.891 Personal history of nicotine dependence
CPT/HCPCS: 36415; 71020-TC; 80048; 80053; 85025; 85027; 93005; 93010; 94150; 94640; 99283-25; J0475

== ENCOUNTER 2017-09-24 05:18 | Day surgery (SDC) | payer OTHER ==
[2017-09-21 15:21] VITALS: BMI 32.8
--- NOTE | 2017-09-24 08:11 | HP ---
[facility] - Chief Complaint Chief Complaint: left shoulder pain - Past Medical History Allergies/Adverse Reactions: Allergies Allergy/AdvReac Type Severity Reaction Status Date / Time Penicillins Allergy Intermediate Rash Verified 09/21/17 15:08 fluoroquinolones Allergy Severe Difficulty Uncoded 09/21/17 15:08 Breathing FUNNEL COATER: Yes: Peripheral Neuropathy (left hand) Cardiovascular: Yes: CHF (Diastolic) Pulmonary: Yes: Asthma, COPD Gastrointestinal: Yes: GERD Heme/Onc: Yes: Other (MGUS) Endocrine: Yes: Hypothyroidism - Current Medications Current Medications: Home Medications Medication Instructions Recorded Albuterol Sulfate Inhaler - 2 puff IH Q4H PRN 09/11/15 [Ventolin HFA Inhaler -] BUPROPion HCL "SR" [Wellbutrin Sr 100 mg PO DAILY 02/14/17 -] Montelukast Na [Singulair -] 10 mg PO HS 02/14/17 Albuterol 0.083% Nebulizer Yadira 1 amp NEB Q4H PRN #0 amp 03/03/17 [Ventolin 0.083% Nebulizer Soln -] Albuterol 2.5/Ipratropium 0.5 1 amp NEB TIDR amp 03/03/17 [Duoneb -] Budesonide/Formeterol Fumarate 2 inh PO BID 08/23/17 [SYMBICORT 80/4.5mcg -] Cetirizine HCl [Zyrtec -] 10 mg PO DAILY 08/23/17 Cyclosporine [Restasis] 1 each OP ASDIR 08/23/17 Famotidine [Pepcid] 40 mg PO DAILY 08/23/17 Fluticasone Prop 0.05% Nasal 1 - 2 spray NS DAILY 08/23/17 [Flonase -] Lorazepam 1 mg PO DAILY PRN 08/23/17 Acetylcysteine 10% [Mucomyst] 600 mg GT BID #360 ml 08/31/17 Amlodipine Besylate [Norvasc -] 5 mg PO DAILY #30 tablet 08/31/17 Melatonin 10 mg PO HS #60 tab 08/31/17 Ramelteon [Rozerem] 8 mg PO HS PRN #30 tablet 08/31/17 Polyethylene Glycol 3350 [Miralax 17 gm PO DAILY PRN 09/21/17 119 gm Btl -] Prednisone 40 mg PO DAILY 09/21/17 Sennosides [Senna -] 2 tab PO BID PRN 09/21/17 Oxycodone HCl/Acetaminophen 1 - 2 tab PO Q6H #50 tab MDD 8 09/24/17 [Percocet 5-325 mg Tablet] Satellite Physical Exam - Physical Examination General Appearance: Well Nourished, Well Developed, Alert & Oriented x3 ENT: Clear Lung: Normal air movement Heart: Regular rate & rhythm Extremities: Other (left shoulder - + ttp, decr rom, +empty can, + neer, + regalado, nvi MRI + rct) Neurological: Intact, Alert, Oriented Satellite Impression/Plan - Impression/Plan Impression: left shoulder rct Operative Procedure: left shoulder arthroscopy with RCR, SAD Date to be Performed: 09/24/17
[2017-09-24] MEDS ORDERED: MIDAZOLAM HCL 2 MG/2 ML SINGLE DOSE VIAL ONE ×2 (08:47)
[2017-09-24] MEDS ORDERED: ONDANSETRON 4 MG/2 ML VIAL IVPUSH PRN (09:01)
[2017-09-24] MEDS ORDERED: oxyCODONE HCL 5 MG TABLET PO PRN (09:01)
[2017-09-24] MEDS ORDERED: LACTATED RINGERS SOLUTION 1,000 ML IV SCH (09:15)
[2017-09-24] MEDS ORDERED: ceFAZolin SODIUM 1 GM VIAL IVPB ONE (09:59)
[2017-09-24] MEDS ORDERED: LIDOCAINE HCL/PF 2% SDV 5ML VIAL ONE (10:07)
[2017-09-24] MEDS ORDERED: ceFAZolin SODIUM 1 GM VIAL ONE (10:11)
[2017-09-24] MEDS ORDERED: SODIUM CHLORIDE 0.9% P/F 10 ML VIAL IJ ONE (10:11)
[2017-09-24] MEDS ORDERED: PROPOFOL 20 ML ONE (10:12)
[2017-09-24] MEDS ORDERED: KETOROLAC TROMETHAMINE 30 MG/1 ML VIAL ONE ×2 (10:13→10:16)
[2017-09-24] MEDS ORDERED: DEXAMETHASONE SOD PHOSPHATE 4 MG/1 ML VIAL ONE ×2 (10:13→10:16)
--- NOTE | 2017-09-24 11:13 | OP ---
Operative Note - Note: Operative Date: 09/24/17 ([facility]) Pre-Operative Diagnosis: left shoulder rct Operation: left shoulder arthroscopy with RCR, SAD Implants: arthrex speedbridge, 2 swivelocks Post-Operative Diagnosis: Same as Pre-op Surgeon: Janusz Rivers Outreach Rep: Clem Holliday Anesthesiologist/CHILD GUIDANCE COUNSELOR: Daron Starkey Anesthesia: General, Local Specimens Removed: shavings Estimated Blood Loss (mls): 5 Operative Report Dictated: Yes
[2017-09-24 12:48] VITALS: TEMP 98.6
[2017-09-24 15:31] VITALS: PULSE 98
[2017-09-24 15:47] VITALS: BP 111/62
--- NOTE | 2017-09-25 13:25 | OP ---
DATE OF OPERATION: 09/24/2017 PREOPERATIVE DIAGNOSIS: Left rotator cuff tear. POSTOPERATIVE DIAGNOSIS: Left rotator cuff tear. PROCEDURE: Arthroscopy of the left shoulder with arthroscopic left rotator cuff repair. SURGICAL ATTENDING: Janusz Rivers MD PANTOGRAPH II ENGRAVER: OSIEL wSift ANESTHESIA: Regional and general. CLOSURE: A SpeedBridge as well SwiveLock for repair, 3-0 nylon for skin. ESTIMATED BLOOD LOSS: Negligible. COMPLICATIONS: None. CONDITION: To recovery room in stable condition. DESCRIPTION OF OPERATIVE PROCEDURE: Patient was taken to the operating room on September 24, 2017. Regional and general anesthesia was administered by the anesthesiologist. IV Kefzol administered prophylactically prior to the case. Patient was placed in the beach chair position with all prominences well padded. Left shoulder area was prepped and draped in the usual sterile fashion. First, a diagnostic arthroscopy of the glenohumeral joint was performed. A posterior portal was made 2 fingerbreadths below the acromion, first with a 15 blade, followed by a blunt trocar. Circumferential exam of the glenohumeral joint revealed the following: Intact glenoid and humeral head articular cartilage, intact labrum circumferentially; no loose body in the axillary pouch; intact subscapularis to its insertion; intact biceps to its insertion. Looking superiorly, there was a large rotator cuff tear clearly seen. The fluid was drained from the shoulder, and trocar was removed. The posterior trocar was redirected in the subacromial space. An accessory lateral portal was then made with a 15 blade, followed by a blunt trocar. A bursectomy was performed, clearing the subacromial space. The coracoacromial ligament was identified and was detached from the anterior acromion and was further debrided. The undersurface of the acromion was debrided, gaining sufficient height for the underlying rotator cuff. Looking inferiorly, the rotator cuff had a very large tear with displacement medially. The greater tuberosity was clearly seen throughout. This area was debrided of all fibrous tissues using a shaver and the ArthroCare device. The leading edge of the rotator cuff was debrided, exposing healthier tissue underneath. Bursal and fibrous tissue above the rotator cuff was debrided using the ArthroCare device. Traction on the rotator cuff revealed that it did have mobility and was able to be reduced to the leading edge of the greater tuberosity but not further. Stigler elevators again were used to free it up as best we could to deliver it to the greater tuberosity. Two medial anchors were placed on the articular margin, one anterior and one posterior. The 4 limbs of FiberTape that were preloaded were passed in a fanned-out position through the rotator cuff. They were docked through an anterior portal that was made with a 15 blade and blunt trocar. One anterior and one posterior limb were fixated through a lateral row anchor on the greater tuberosity, and the other limb that was anterior and posterior was fixated through a posterior anchor on the lateral aspect of the greater tuberosity, reducing the rotator cuff to the greater tuberosity. An accessory anterior SwiveLock was needed to fixate more of the rotator cuff anteriorly. FiberWire sutures were placed in horizontal mattress formation through the anterior portion of the rotator cuff, and they were fixated to SwiveLocks in the greater tuberosity. Post repair, the rotator cuff was found to be stable. We took it through a passive range of motion, found to have good clearance of the subacromial space with good, solid repair. The shoulder was irrigated with copious amounts of irrigation. The trocars were removed. The portals were closed using 3-0 nylon horizontal mattress. A sterile pressure dressing followed by a shoulder immobilizer was applied. The patient was awakened from anesthesia and transferred to recovery room in stable condition. No complications. Estimated blood loss negligible. Elina [id number]
--- NOTE | 2017-09-28 15:06 | PATH ---
Surgical Pathology Report Patient Name: KRISSY LEAHY [facility]. Rec. #: [id number] /Age/Gender: 1955 (Age: 62) / F Account: [id number] Location: [facility] SURGICAL Taken: 09/24/2017 Received: 09/24/2017 Reported: 09/28/2017 Physicians: Janusz Rivers M.D. Specimen(s) Received SHAVINGS LEFT SHOULDER Clinical History Tear left shoulder Final Diagnosis SHOULDER SHAVINGS, LEFT, ARTHROSCOPY WITH ROTATOR CUFF REPAIR: BENIGN CARTILAGE, DENSE CONNECTIVE AND FIBROADIPOSE TISSUE, SKELETAL MUSCLE, BONE, AND MILD CHRONIC SYNOVITIS. Electronically Signed Doris Corona M.D. Gross Description Received in formalin, labeled "left shoulder shavings," is a 3.5 x 3.5 x 0.4 cm. aggregate of scales-yellow soft tissue fragments. A sales representative livestock portion is submitted in one cassette. 09/24/201709/24/2017
== END 2017-09-24 14:30 | disposition home or self-care (01) ==
LOC: JASU-SURG 05:18
PROVIDERS: ATTEND Orthopaedic Surgery
PROC: 0LQ24ZZ Repair Left Shoulder Tendon, Percutaneous Endoscopic Approach (ICD-10-PCS; principal; 2017-09-24 09:30)
PROC: 0RNK4ZZ Release Left Shoulder Joint, Percutaneous Endoscopic Approach (ICD-10-PCS; 2017-09-24 09:30)
DX: M75.102 Unspecified rotator cuff tear or rupture of left shoulder, not specified as traumatic (principal)
CPT/HCPCS: 88304-TC; 94760

== ENCOUNTER 2017-10-05 11:06 | Inpatient (IN) | payer OTHER ==
[2017-10-05 11:26] VITALS: BMI 32.1
[2017-10-05] MEDS ORDERED: ALBUTEROL SO4 2.5/IPRATROPIUM 0.5 INH SOL 3 ML VIAL.NEB. NEB ONE ×5 (11:31→15:45)
--- NOTE | 2017-10-05 11:59 | PDOC ---
Attending Attestation - HPI HPI: 10/05/17 12:05 The patient is a 62 year old female, with a significant past medical history of lung collapse (s/p 3 chest tubes), steroid dependent on O2 prn, asthma, COPD, MGUS, GERD who presents to the emergency department with difficulty breathing and cough. The patient reports bringing up green sputum with her cough. She reports having 3 circumvent treatments at home and 1 while en route to the ER by EMS.She also has chief complaints of LE swelling. She denies recent fevers, chills, headache or dizziness. She denies recent nausea, vomit, diarrhea or constipation. She denies recent dysuria, frequency, urgency or hematuria. She denies recent chest pain or shortness of breath. Allergies: NKA Past surgical history: See HPI. Recent RCR. Social history: Former smoker. Denies EtOH use and recreational drug use. Primary Care Physician: / <Clem Howell - Last Filed: 10/05/17 12:05> - Resident Resident Name: Oumar Garnica - ED Attending Attestation I have performed the following: I have examined & evaluated the patient, The case was reviewed & discussed with the resident, I agree w/resident's findings & plan, Exceptions are as noted - Physicial Exam PE: GENERAL: Awake, alert, and fully oriented, in no acute distress HEAD: No signs of trauma EYES: PERRLA, EOMI, sclera anicteric, conjunctiva clear ENT: Auricles normal inspection, hearing grossly normal, nares patent, oropharynx clear without exudates. Moist mucosa NECK: Normal ROM, supple, no lymphadenopathy, JVD, or masses LUNGS: +Exp wheezes B/L. Good air entry B/L. HEART: Regular rate and rhythm, normal S1 and S2, no murmurs, rubs or gallops ABDOMEN: Soft, nontender, normoactive bowel sounds. No guarding, no rebound. No masses EXTREMITIES: Normal range of motion, 2+ pitting edema BLE, R>L. No clubbing or cyanosis. No cords, erythema, or tenderness NEUROLOGICAL: Cranial nerves II through XII grossly intact. Normal speech, normal gait SKIN: Warm, Dry, normal turgor, no rashes or lesions noted. - Medical Decision Making Patient's symptoms are more indicative of a respiratory etiology, however, she has history of recent shoulder surgery and swollen legs. Will r/o PE. Plan for admission. <Katya Omer - Last Filed: 10/09/17 10:20>
[2017-10-05 12:20] LABS: HEMATOCRIT 35.9 % (32.4-45.2); HEMOGLOBIN 11.2 GM/dL (10.7-15.3); MCH 24.1 pg (25.7-33.7); MCHC 31.1 g/dl (32.0-36.0); MEAN CELL VOLUME 77.4 fl (80-96); PLATELET COUNT 418 K/MM3 (134-434); RBC 4.64 M/mm3 (3.60-5.2); RDW 19.8 % (11.6-15.6); WHITE BLOOD COUNT 24.7 K/mm3 (4.0-10.0)
[2017-10-05 12:22] LABS: URINE APPEARANCE CLEAR; URINE BILIRUBIN NEGATIVE (NEGATIVE); URINE BLOOD 1+ (NEGATIVE); URINE COLOR STRAW; URINE GLUCOSE (UA) NEGATIVE (NEGATIVE); URINE KETONE NEGATIVE (NEGATIVE); URINE LEUK ESTERASE NEGATIVE (NEGATIVE); URINE NITRITE NEGATIVE (NEGATIVE); URINE PROTEIN NEGATIVE (NEGATIVE); URINE UROBILINOGEN NEGATIVE mg/dL (0.2-1.0)
[2017-10-05 12:42] LABS: ALBUMIN 3.4 g/dl (3.4-5.0); ANION GAP 9 (8-16); BILIRUBIN,TOTAL 0.3 mg/dL (0.2-1.0); BLOOD UREA NITROGEN 14 mg/dL (7-18); CALCIUM 8.7 mg/dL (8.5-10.1); CHLORIDE 105 mmol/L (98-107); CO2 26 mmol/L (21-32); CREATININE 0.8 mg/dL (0.55-1.02); GLUCOSE,RANDOM 102 mg/dL (74-106); SGOT/AST 18 U/L (15-37); SGPT/ALT 44 U/L (12-78); SODIUM 140 mmol/L (136-145); TOT PROT 6.9 g/dl (6.4-8.2)
[2017-10-05 12:45] LABS: ALK PHOS 63 U/L (45-117); N-TERMINAL BNP 20.47 pg/ml (5-125)
[2017-10-05] MEDS ORDERED: MAGNESIUM SULF 50% (8.12 MEQ/2 ML-1 GM VIAL) IVPB ONE (13:04)
[2017-10-05] MEDS ORDERED: methylPREDNISolone NA SUCC 125 MG/2 ML VIAL IVPUSH ONE (13:04)
--- NOTE | 2017-10-05 13:16 | PDOC ---
History of Present Illness - General Chief Complaint: Respiratory Stated Complaint: DIFFICULTY BREATHING Time Seen by Provider: 10/05/17 11:26 History Source: Patient Exam Limitations: No Limitations - History of Present Illness Initial Comments: 10/05/17 13:06 The patient is a 62F with a PMH of recent left lung collapse (s/p 3 chest tubes) , asthma/COPD (steroid dependent, uses O2 prn), former smoker, GERD, osteoporosis, Hashimotos thyroiditis, and MGUS who presents to the ED via EMS for complaints of asthma exacerbation. The patient states that for the past 3 days she has been feeling more short of breath than usual. She states that today she tried to go to the bathroom from her bedroom and became extremely short of breath. She admits to a recent orthopedic surgery (09/24/17) where she had her rotator cuff replaced and says both of her legs have been more swollen as of recent. She denies any fever, chills, CP, but admits to a cough. She used 3 combivent nebs at home and 1 in EMS. She says this does not feel like her normal asthma exacerbations because she does not normally get this short of breath with exertion. Past History - Past Medical History Allergies/Adverse Reactions: Allergies Allergy/AdvReac Type Severity Reaction Status Date / Time Penicillins Allergy Intermediate Rash Verified 10/05/17 11:24 fluoroquinolones Allergy Severe Difficulty Uncoded 10/05/17 11:24 Breathing Home Medications: Ambulatory Orders Albuterol Sulfate Inhaler - [Ventolin HFA Inhaler -] 2 puff IH Q4H PRN 09/11/15 BUPROPion HCL "SR" [Wellbutrin Sr -] 100 mg PO DAILY 02/14/17 Montelukast Na [Singulair -] 10 mg PO HS 02/14/17 Albuterol 0.083% Nebulizer Yadira [Ventolin 0.083% Nebulizer Soln -] 1 amp NEB Q4H PRN #0 amp 03/03/17 Albuterol 2.5/Ipratropium 0.5 [Duoneb -] 1 amp NEB TIDR amp 03/03/17 Budesonide/Formeterol Fumarate [SYMBICORT 80/4.5mcg -] 2 inh PO BID 08/23/17 Cetirizine HCl [Zyrtec -] 10 mg PO DAILY 08/23/17 Cyclosporine [Restasis] 1 each OU BID 08/23/17 Famotidine [Pepcid] 40 mg PO DAILY 08/23/17 Lorazepam 1 mg PO DAILY PRN 08/23/17 Acetylcysteine 10% [Mucomyst] 600 mg GT BID #360 ml 08/31/17 Amlodipine Besylate [Norvasc -] 5 mg PO DAILY #30 tablet 08/31/17 Melatonin 10 mg PO HS #60 tab 08/31/17 Prednisone 40 mg PO DAILY 09/21/17 Naproxen 500 mg PO BID 10/05/17 Nystatin 100,000 unit PO BID 10/05/17 Anemia: No Asthma: Yes Cancer: No Cardiac Disorders: No CVA: No COPD: Yes CHF: No Dementia: No 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) GI Disorders: No Disorders: No HTN: Yes Hypercholesterolemia: Yes Liver Disease: No Seizures: No Thyroid Disease: No - Surgical History Abdominal Surgery: No Appendectomy: No Cardiac Surgery: No Cholecystectomy: No Lung Surgery: No Neurologic Surgery: No Orthopedic Surgery: Yes (numerous foot surgeries, right rotator cuff) - Immunization History Immunization Up to Date: No - Suicide/Smoking/Psychosocial Hx Smoking History: Former smoker Have you smoked in the past 12 months: No Number of Cigarettes Smoked Daily: 1 If you are a former smoker, when did you quit?: 02/17 Information on smoking cessation initiated: No 'Breaking Loose' booklet given: 02/27/16 Hx Alcohol Use: No Drug/Substance Use Hx: No Substance Use Type: None Hx Substance Use Treatment: No Review of Systems - Review of Systems Comments:: 10/05/17 13:22 GENERAL/CONSTITUTIONAL: No fever or chills. No weakness. HEAD, EYES, EARS, NOSE AND THROAT: No change in vision. No ear pain or discharge. No sore throat. GASTROINTESTINAL: No nausea, vomiting, diarrhea, constipation, or abdominal pain. GENITOURINARY: No dysuria, frequency, hematuria, or change in urination. CARDIOVASCULAR: No chest pain, palpitations, or lightheadedness. RESPIRATORY: Positive for cough and wheezing, asthma, and shortness of breath. No hemoptysis. MUSCULOSKELETAL: No joint or muscle swelling or pain. No neck or back pain. SKIN: Positive for new onset edema. No rash or lesions. NEUROLOGIC: No headache, numbness, tingling, weakness, loss of consciousness, or change in strength/sensation. ENDOCRINE: No increased thirst. No abnormal weight change. HEMATOLOGIC/LYMPHATIC: No anemia, easy bleeding, or history of blood clots. ALLERGIC/IMMUNOLOGIC: No hives or skin allergy. *Physical Exam - Vital Signs Last Vital Signs Temp Pulse Resp BP Pulse Ox 98.7 F 112 H 24 133/80 96 10/05/17 11:24 10/05/17 12:00 10/05/17 12:00 10/05/17 12:00 10/05/17 12:00 Heart Score/ECG Review #1 General ECG Interpretation: Sinus Rhythm, Normal Rate, Normal Intervals, No acute ischemic changes Compared to previous ECG there are: Previous ECG unavail 10/05/17 13:24 NSR, sinus tach Rate 111 QRS 74 QTc 451 ED Treatment Course - LABORATORY CBC & Chemistry Diagram: 10/05/17 12:10 10/05/17 12:10 - ADDITIONAL ORDERS Additional order review: Laboratory Results 10/05/17 10/05/17 12:10 11:58 Sodium 140 Potassium 4.0 Chloride 105 Carbon Dioxide 26 Anion Gap 9 BUN 14 Creatinine 0.8 Creat Clearance w eGFR > 60 Random Glucose 102 Calcium 8.7 Total Bilirubin 0.3 AST 18 ALT 44 Alkaline Phosphatase 63 D Creatine Kinase 132 Troponin I < 0.02 B-Natriuretic Peptide 20.47 Total Protein 6.9 Albumin 3.4 Urine Color Straw Urine Appearance Clear Urine pH 6.0 Ur Specific Colbert 1.004 Urine Protein Negative Urine Glucose (UA) Negative Urine Ketones Negative Urine Blood 1+ H Urine Nitrite Negative Urine Bilirubin Negative Urine Urobilinogen Negative 10/05/17 12:10 RBC 4.64 MCV 77.4 L MCHC 31.1 L RDW 19.8 H MPV 7.0 L Neutrophils % No Result Required. Lymphocytes % No Result Required. - RADIOLOGY Radiology Studies Ordered: Category Date Time Status CHEST CTA [CT] Stat CT Scan 10/05/17 13:00 Ordered CHEST PA & LAT [RAD] Stat Radiology 10/05/17 12:01 Completed - Medications Given in the ED: ED Medications Discontinued Medications Generic Name Dose Route Start Last Admin Trade Name Freq PRN Reason Stop Dose Admin Albuterol/Ipratropium 1 amp 10/05/17 11:34 10/05/17 11:58 Duoneb - NEB 10/05/17 11:35 1 amp ONCE ONE Administration Medical Decision Making - Medical Decision Making 10/05/17 13:24 The patient is a 62F with a PMH of asthma who is presenting with worsening of her asthma symptoms. I have a slight suspicion for PE 2/2 ortho procedure and worsening SOB. CXR shows bibasilar atelectic changes. Pending CTA. Labs significant for white count of 24. Pt is on chronic 40mg prednisone for asthma. Will reassess and monitor closely. 10/05/17 14:54 Chest CTA does not indicate any PE but does indicate atelectasis in R lung base. Dr. Burrell accepts admission for the patient. *DC/Admit/Observation/Transfer Diagnosis at time of Disposition: Moderate persistent chronic asthma with acute exacerbation - Discharge Dispostion Condition at time of disposition: Stable Admit: Yes - Referrals Referrals: Amarjit Burrell MD [Primary Care Provider] - - Patient Instructions - Post Discharge Activity
[2017-10-05] MEDS ORDERED: methylPREDNISolone NA SUCC 125 MG/2 ML VIAL ONE (14:00)
[2017-10-05] MEDS ORDERED: MAGNESIUM SULF 50% (8.12 MEQ/2 ML-1 GM VIAL) ONE (14:00)
[2017-10-05 14:16] LABS: EPI CELLS RARE /HPF (FEW)
[2017-10-05 14:37] LABS: ANISOCYTOSIS 2+; PLATELET ESTIMATE NORMAL
[2017-10-05] MEDS ORDERED: LORazepam 1 MG TABLET PO PRN (17:19)
[2017-10-05] MEDS ORDERED: PT OWN MED DRAWER 7, Y5N ONE (21:14)
[2017-10-05] MEDS: guaiFENesin/D-M SUGAR-FREE/ACLHOL-FREE 118 ML BOTTLE PO SCH (21:21)
[2017-10-05] MEDS: methylPREDNISolone NA SUCC 125 MG/2 ML VIAL IVPB SCH (21:21)
[2017-10-05] MEDS: MONTELUKAST NA 10 MG TABLET PO SCH (21:22)
[2017-10-05] MEDS: HEPARIN NA (PORCINE) 5,000 UNITS/ML 1ML VIAL SQ SCH (21:22)
[2017-10-05] MEDS ORDERED: PATIENT'S OWN MEDICATION (NON-FORMULARY) (Cyclosporine [Restasis] 1 EACH) OU SCH (22:00)
[2017-10-05] MEDS ORDERED: ACETYLCYSTEINE 20% 200MG/ML 30 ML VIAL *FOR ORAL / INH USE ONLY GT SCH (22:00)
[2017-10-05] MEDS: ALBUTEROL SO4 2.5/IPRATROPIUM 0.5 INH SOL 3 ML VIAL.NEB. NEB SCH (22:10)
[2017-10-05] MEDS: MELATONIN 5 MG TABLETS PO SCH (22:41)
[2017-10-05] MEDS: NAPROXEN 500 MG TABLET (FP) PO SCH (22:42)
[2017-10-05] MEDS: BUDESONIDE/FORMETEROL FUMARATE 80/4.5 mcg INHALER IH SCH (22:42)
[2017-10-05] MEDS: NYSTATIN 500,000 UNITS/5 ML SUSPENSION PO SCH (22:49)
--- NOTE | 2017-10-05 23:42 | HP ---
Admitting History and Physical - Primary Care Physician PCP: Amarjit Burrell - Admission Chief Complaint: SOB History of Present Illness: Pt with significant Hx/o Asthma, COPD, CHF, c/o worsening SOB for the last 2-3 days, now associated with clear to yellowish sputum; pt came today to ER; pt had CTA (and R'ed/O PE) and was admitted for Asthma Exacerbation. 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) Cardiovascular: Yes: CHF (Diastolic) Pulmonary: Yes: Asthma, COPD, Other (Former Smoker.) Gastrointestinal: Yes: GERD Heme/Onc: Yes: Other (MGUS) Endocrine: Yes: Hypothyroidism - Smoking History Smoking history: Former smoker Have you smoked in the past 12 months: No Aproximately how many cigarettes per day: 1 If you are a former smoker, when did you quit?: 02/17 - Alcohol/Substance Use Hx Alcohol Use: No - Social History History of Recent Travel: No Home Medications - Allergies Allergies/Adverse Reactions: Allergies Allergy/AdvReac Type Severity Reaction Status Date / Time Penicillins Allergy Intermediate Rash Verified 10/05/17 11:24 fluoroquinolones Allergy Severe Difficulty Uncoded 10/05/17 11:24 Breathing - Home Medications Home Medications: Ambulatory Orders RX: Albuterol Sulfate Inhaler - [Ventolin HFA Inhaler -] 2 puff IH Q4H PRN 09/11 RX: BUPROPion HCL "SR" [Wellbutrin Sr -] 100 mg PO DAILY 02/14/17 RX: Montelukast Na [Singulair -] 10 mg PO HS 02/14/17 RX: Albuterol 0.083% Nebulizer Yadira [Ventolin 0.083% Nebulizer Soln -] 1 amp NEB Q4H PRN #0 amp 03/03/17 RX: Albuterol 2.5/Ipratropium 0.5 [Duoneb -] 1 amp NEB TIDR amp 03/03/17 RX: Budesonide/Formeterol Fumarate [SYMBICORT 80/4.5mcg -] 2 inh PO BID RX: Cetirizine HCl [Zyrtec -] 10 mg PO DAILY 08/23/17 RX: Cyclosporine [Restasis] 1 each OU BID 08/23/17 RX: Famotidine [Pepcid] 40 mg PO DAILY 08/23/17 RX: Lorazepam 1 mg PO DAILY PRN 08/23/17 RX: Acetylcysteine 10% [Mucomyst] 600 mg GT BID #360 ml 08/31/17 RX: Amlodipine Besylate [Norvasc -] 5 mg PO DAILY #30 tablet 08/31/17 RX: Melatonin 10 mg PO HS #60 tab 08/31/17 RX: Prednisone 40 mg PO DAILY 09/21/17 RX: Naproxen 500 mg PO BID 10/05/17 RX: Nystatin 100,000 unit PO BID 10/05/17 Review of Systems - Review of Systems Constitutional: reports: Weakness. denies: Chills, Fever Eyes: denies: Blind Spots, Blurred Vision, Double Vision HENT: denies: Difficult Swallowing, Ear Discharge, Ear Pain, Epistaxis Cardiovascular: denies: Chest Pain, Edema, Palpitations Respiratory: reports: Cough, SOB, Wheezing. denies: Hemoptysis Gastrointestinal: denies: Abdominal Pain, Diarrhea, Nausea, Vomiting Genitourinary: denies: Burning, Discharge, Dysuria Musculoskeletal: denies: Back Pain, Joint Swelling Integumentary: denies: Blister, Bruising Neurological: denies: Change in LOC, Change in Speech, Dizziness Endocrine: denies: Excessive Sweating, Intolerance to Cold Psychiatric: denies: Anxiety, Depression Physical Examination Vital Signs: Vital Signs Temperature 98.1 F 10/05/17 17:56 Pulse Rate 107 H 10/05/17 22:00 Respiratory Rate 20 10/05/17 22:00 Blood Pressure 123/83 10/05/17 22:00 O2 Sat by Pulse Oximetry (%) 96 10/05/17 18:23 Constitutional: Yes: No Distress, Calm Eyes: Yes: Conjunctiva Clear, EOM Intact, PERRL HENT: Yes: Normocephalic. No: Epistaxis, Rhinnorhea Neck: Yes: Trachea Midline. No: Lymphadenopathy Cardiovascular: Yes: Regular Rate and Rhythm, S1, S2 Respiratory: Yes: Regular, Rhonchi (bilat), Wheezes (bilat.) Gastrointestinal: Yes: Normal Bowel Sounds, Soft. No: Tenderness ...Rectal Exam: Yes: Deferred Renal/: No: CVA Tenderness - Left, CVA Tenderness - Right Breast(s): Yes: Other (deferred) Musculoskeletal: No: Joint Stiffness, Joint Swelling Extremities: No: Cold, Cool Edema: No (pretibial) Integumentary: No: Body Piercing, Erythema Neurological: Yes: Alert, Oriented, Other (sensory and motor exam is symmetric in UE/ LE/ face.) Psychiatric: Yes: Alert, Oriented Labs: CBC, BMP 10/05/17 12:10 10/05/17 12:10 Imaging - Results Chest X-ray: Report Reviewed X-ray: Report Reviewed Problem List - Problems (1) Asthma exacerbation Code(s): J45.901 - UNSPECIFIED ASTHMA WITH (ACUTE) EXACERBATION (2) Acute exacerbation of COPD with asthma Code(s): J44.1 - CHRONIC OBSTRUCTIVE PULMONARY DISEASE W (ACUTE) EXACERBATION; J45.901 - UNSPECIFIED ASTHMA WITH (ACUTE) EXACERBATION (3) CHF (congestive heart failure) Code(s): I50.9 - HEART FAILURE, UNSPECIFIED (4) Leukocytosis Assessment/Plan: probable secondary to chronic steroid use. Code(s): D72.829 - ELEVATED WHITE BLOOD CELL COUNT, UNSPECIFIED (5) Shoulder pain, left Assessment/Plan: s/p recent surgery (with Dr. Rivers) Code(s): M25.512 - PAIN IN LEFT SHOULDER Assessment/Plan IV Steroids Pulmonary consult AM labs DVT prophylaxis PT evaluation
[2017-10-05] MEDS ORDERED: ACETYLCYSTEINE 20% 200MG/ML 4 ML VIAL *FOR ORAL / INH USE ONLY NEB SCH (23:45)
[2017-10-06] MEDS ORDERED: PT OWN MED DRAWER 7, Y5N ONE ×3 (00:26→21:19)
[2017-10-06] MEDS: guaiFENesin/D-M SUGAR-FREE/ACLHOL-FREE 118 ML BOTTLE PO SCH ×7 (03:08→21:26)
[2017-10-06] MEDS: methylPREDNISolone NA SUCC 125 MG/2 ML VIAL IVPB SCH ×4 (03:09→21:25)
[2017-10-06] MEDS: ALBUTEROL SO4 2.5/IPRATROPIUM 0.5 INH SOL 3 ML VIAL.NEB. NEB SCH ×3 (06:20→22:02)
[2017-10-06 07:35] LABS: HEMATOCRIT 34.9 % (32.4-45.2); HEMOGLOBIN 10.6 GM/dL (10.7-15.3); MCH 23.9 pg (25.7-33.7); MCHC 30.5 g/dl (32.0-36.0); MEAN CELL VOLUME 78.3 fl (80-96); MEAN PLT VOLUME 7.2 fl (7.5-11.1); PLATELET COUNT 416 K/MM3 (134-434); RBC 4.46 M/mm3 (3.60-5.2); RDW 19.1 % (11.6-15.6); WHITE BLOOD COUNT 25.5 K/mm3 (4.0-10.0)
[2017-10-06 08:05] LABS: ALBUMIN 3.1 g/dl (3.4-5.0); ANION GAP 15 (8-16); BLOOD UREA NITROGEN 16 mg/dL (7-18); CHLORIDE 102 mmol/L (98-107); CO2 22 mmol/L (21-32); CREATININE 0.9 mg/dL (0.55-1.02); GLUCOSE,RANDOM 171 mg/dL (74-106); POTASSIUM 4.2 mmol/L (3.5-5.1); SGOT/AST 14 U/L (15-37); SGPT/ALT 38 U/L (12-78); SODIUM 139 mmol/L (136-145)
[2017-10-06 08:07] LABS: ALK PHOS 60 U/L (45-117); BILIRUBIN,TOTAL 0.4 mg/dL (0.2-1.0); TOT PROT 6.6 g/dl (6.4-8.2)
--- NOTE | 2017-10-06 09:31 | EKG ---
Test Reason : Blood Pressure : / mmHG Vent. Rate : 111 BPM Atrial Rate : 111 BPM P-R Int : 148 ms QRS Dur : 074 ms QT Int : 332 ms P-R-T Axes : 029 012 050 degrees QTc Int : 451 ms SINUS TACHYCARDIA OTHERWISE NORMAL ECG Confirmed by MD Bill, Rob ([id number]) on 10/06/2017 9:31:20 AM Referred By: Confirmed By:Rob Khan MD
[2017-10-06] MEDS: ACETYLCYSTEINE 20% 200MG/ML 4 ML VIAL *FOR ORAL / INH USE ONLY NEB SCH ×2 (09:55→22:02)
[2017-10-06] MEDS: ALBUTEROL SO4 0.083% IH SOL 2.5 MG/3 ML VIAL.NEB. NEB PRN (09:55)
[2017-10-06] MEDS: HEPARIN NA (PORCINE) 5,000 UNITS/ML 1ML VIAL SQ SCH ×2 (09:58→21:26)
[2017-10-06] MEDS: RANITIDINE HCL 150 MG TABLET (FP) PO SCH (09:58)
[2017-10-06] MEDS: NYSTATIN 500,000 UNITS/5 ML SUSPENSION PO SCH ×2 (09:58→21:26)
[2017-10-06] MEDS: amLODIPine BESYLATE 5 MG TABLET (FP) PO SCH (09:59)
[2017-10-06] MEDS: BUDESONIDE/FORMETEROL FUMARATE 80/4.5 mcg INHALER IH SCH ×2 (09:59→21:26)
[2017-10-06] MEDS: NAPROXEN 500 MG TABLET (FP) PO SCH ×2 (10:00→21:26)
[2017-10-06] MEDS: LORATADINE 10 MG TABLET PO SCH (10:00)
--- NOTE | 2017-10-06 12:17 | PN ---
Progress Note, Physician History of Present Illness: Pt states that her breathing is better. Pt w/o SOB, CP, palp, abd pain. - Current Medication List Current Medications: Active Medications Acetylcysteine (Mucomyst 20 Oral / Inh Use Only*) 600 mg NEB BID [facility] Last Admin: 10/06/17 09:55 Dose: 600 mg Albuterol Sulfate (Ventolin 0.083% Nebulizer Soln -) 1 amp NEB Q4H PRN PRN Reason: SHORT OF BREATH/WHEEZING Last Admin: 10/06/17 09:55 Dose: 1 amp Albuterol/Ipratropium (Duoneb -) 1 amp NEB TIDR [facility] Last Admin: 10/06/17 06:20 Dose: 1 amp Amlodipine Besylate (Norvasc -) 5 mg PO DAILY [facility] Last Admin: 10/06/17 09:59 Dose: Not Given Budesonide/Formoterol Fumarate (Symbicort 80/4.5mcg -) 2 puff IH BID [facility] Last Admin: 10/06/17 09:59 Dose: 2 puff Bupropion HCl (Wellbutrin Xl -) 150 mg PO DAILY [facility] Last Admin: 10/06/17 10:00 Dose: 150 mg Guaifenesin (Diabetic Tussin Dm -) 10 ml PO Q4H [facility] Last Admin: 10/06/17 10:00 Dose: 10 ml Heparin Sodium (Porcine) (Heparin -) 5,000 unit SQ BID [facility] Last Admin: 10/06/17 09:58 Dose: 5,000 unit Loratadine (Claritin -) 10 mg PO DAILY [facility] Last Admin: 10/06/17 10:00 Dose: 10 mg Lorazepam (Ativan -) 1 mg PO DAILY PRN PRN Reason: ANXIETY Melatonin (Melatonin) 10 mg PO HS [facility] Last Admin: 10/05/17 22:41 Dose: 10 mg Methylprednisolone Sodium Succinate (Solu-Medrol -) 40 mg IVPB Q6H-IV [facility] Last Admin: 10/06/17 09:58 Dose: 40 mg Montelukast Sodium (Singulair -) 10 mg PO HS [facility] Last Admin: 10/05/17 21:22 Dose: 10 mg Naproxen (Naprosyn -) 500 mg PO BID [facility] Last Admin: 10/06/17 10:00 Dose: Not Given Non-Formulary Medication (Cyclosporine [Restasis]) 1 each OU BID [facility] Nystatin (Nystatin Oral Suspension -) 500,000 units PO BID [facility] Last Admin: 10/06/17 09:58 Dose: 500,000 units Ranitidine HCl (Zantac -) 150 mg PO DAILY [facility] Last Admin: 10/06/17 09:58 Dose: 150 mg - Objective Vital Signs: Vital Signs Temperature 98.3 F 10/06/17 06:00 Pulse Rate 107 H 10/06/17 06:00 Respiratory Rate 20 10/06/17 06:00 Blood Pressure 131/68 10/06/17 06:00 O2 Sat by Pulse Oximetry (%) 96 10/05/17 18:23 Constitutional: Yes: No Distress, Calm Cardiovascular: Yes: Regular Rate and Rhythm, S1, S2 Respiratory: Yes: Regular, Rhonchi (scattered). No: Wheezes Gastrointestinal: Yes: Normal Bowel Sounds, Soft. No: Tenderness Neurological: Yes: Alert, Oriented Labs: CBC, BMP 10/06/17 07:00 10/06/17 07:00 Problem List - Problems (1) Asthma exacerbation Code(s): J45.901 - UNSPECIFIED ASTHMA WITH (ACUTE) EXACERBATION (2) Acute exacerbation of COPD with asthma Code(s): J44.1 - CHRONIC OBSTRUCTIVE PULMONARY DISEASE W (ACUTE) EXACERBATION; J45.901 - UNSPECIFIED ASTHMA WITH (ACUTE) EXACERBATION (3) CHF (congestive heart failure) Code(s): I50.9 - HEART FAILURE, UNSPECIFIED (4) Leukocytosis Code(s): D72.829 - ELEVATED WHITE BLOOD CELL COUNT, UNSPECIFIED (5) Shoulder pain, left Code(s): M25.512 - PAIN IN LEFT SHOULDER Assessment/Plan IV Steroids-to joseph per PUlmonary. Pulmonary consult AM labs; to monitor WBC, fever curve DVT prophylaxis PT evaluation Case was d/w pt's nurse.
--- NOTE | 2017-10-06 13:55 | PN ---
Progress Note (short form) - Note Progress Note: PULMONARY CONSULTATION DICTATED 10/06/17 IMP ASTHMA/COPD EXACERBATION URI DIASTOLIC HF STEROID INDUCED DM MGUS R/O OSAS PLAN O2 INHALED BRONCHODILATORS IV STEROIDS DIURETICS ABX SPUTUM C+S MONITOR PEAK FLOW SLEEP SCREEN DR GRAHAM Problem List - Problems (1) MGUS (monoclonal gammopathy of unknown significance) Code(s): D47.2 - MONOCLONAL GAMMOPATHY (2) Acute exacerbation of COPD with asthma Code(s): J44.1 - CHRONIC OBSTRUCTIVE PULMONARY DISEASE W (ACUTE) EXACERBATION; J45.901 - UNSPECIFIED ASTHMA WITH (ACUTE) EXACERBATION (3) Moderate persistent chronic asthma with acute exacerbation Code(s): J45.41 - MODERATE PERSISTENT ASTHMA WITH (ACUTE) EXACERBATION (4) Diabetes 1.5, managed as type 2 Code(s): E13.9 - OTHER SPECIFIED DIABETES MELLITUS WITHOUT COMPLICATIONS (5) Respiratory distress Code(s): R06.00 - DYSPNEA, UNSPECIFIED
--- NOTE | 2017-10-06 14:56 | CONS ---
DATE OF CONSULTATION: 10/06/2017 REFERRING PHYSICIAN: Amarjit Burrell MD The patient is a 62-year-old female with past medical history of asthma/COPD on O2 as well as chronic steroids, history of peripheral neuropathy, diastolic heart failure, GERD, MGUS, hypothyroidism, longstanding history of tobacco use approximately 1/2 pack per day since teenage years, quit 1 year ago, admitted to [facility] with complaints of 2- to 3-day history of increasing shortness of breath and dyspnea on exertion. The patient states she was doing relatively well until a few days prior to admission. She started developing shortness of breath with minimal exertion. She stated that her symptoms became so severe she could only ambulate a couple steps and felt severely dyspneic, at which time she presented to the emergency room. She was treated with bronchodilators with some clinical improvement. She was also noted to have this cough productive of clear to yellowish sputum. She denied any hemoptysis, denied any chest pains or palpitations, denies any nausea, vomiting, or diaphoresis. She was admitted with the above. On admission she was started on inhaled bronchodilators and steroids with good response. Patient denies any fevers, chills. Denies any recent travel. There is no history of DVT or PE in the past. There is a history of respiratory failure in the past requiring ventilatory support in the while working at [employer]. PAST MEDICAL HISTORY: Includes asthma/COPD, diastolic heart failure, MGUS, GERD, peripheral neuropathy. Reviewed. SOCIAL HISTORY: Again with positive history of smoking, quit 1 year ago. No occupational exposures. CURRENT MEDICATIONS: Include Symbicort 80/4.5, Restasis, Solu-Medrol 40 q.6, heparin, , Wellbutrin, Diabetic Tussin, Ativan, albuterol, DuoNeb, Norvasc, Zantac, Singulair, Mucomyst, Naprosyn, melatonin, nystatin, and Claritin. REVIEW OF SYSTEMS: Positive shortness of breath. Positive cough. Positive dyspnea. Positive orthopnea. No chest pain, no palpitations. No fever, no chills. Positive lower extremity edema. PHYSICAL EXAMINATION: General: The patient is an obese female but awake, alert, currently in no acute distress. Vital Signs: She is currently afebrile, blood pressure 131/68. Respiratory rate is 20. HEENT: Normocephalic, atraumatic. Neck: Supple. Heart: Regular, S1, S2. Chest: Scattered bilateral wheezes. Abdomen: Soft. Bowel sounds are positive. Extremities: Bilateral lower extremity edema. LABORATORY: WBC is 25.5, hemoglobin 10.6, hematocrit 34.9 with a platelet count of 416,000. BUN is 16, creatinine 0.9. BNP is 20. Chest CT: Atelectatic changes. Subsegmental consolidation, atelectasis, right lung base. Mild atelectatic changes in the left lung base. IMPRESSION: 1. Acute asthma/chronic obstructive pulmonary disease exacerbation. 2. Diastolic heart failure. 3. Steroid-induced diabetes. 4. History of monoclonal gammopathy of undetermined significance. 5. Rule out obstructive sleep apnea. PLAN: IV steroids, inhaled bronchodilators, supplemental O2. Will obtain sleep screen. Monitor peak flow. Antibiotics. Elina [id number]
[2017-10-06] MEDS: AZITHROMYCIN 250 MG TABLET PO SCH (14:58)
[2017-10-06] MEDS: MELATONIN 5 MG TABLETS PO SCH (21:26)
[2017-10-06] MEDS: MONTELUKAST NA 10 MG TABLET PO SCH (22:36)
[2017-10-07] MEDS: guaiFENesin/D-M SUGAR-FREE/ACLHOL-FREE 118 ML BOTTLE PO SCH ×5 (02:23→18:14)
[2017-10-07] MEDS: methylPREDNISolone NA SUCC 125 MG/2 ML VIAL IVPB SCH ×3 (02:32→15:53)
[2017-10-07] MEDS: ALBUTEROL SO4 2.5/IPRATROPIUM 0.5 INH SOL 3 ML VIAL.NEB. NEB SCH (06:50)
[2017-10-07 07:37] LABS: HEMATOCRIT 32.3 % (32.4-45.2); MCH 23.9 pg (25.7-33.7); MEAN CELL VOLUME 77.2 fl (80-96); MEAN PLT VOLUME 7.7 fl (7.5-11.1); PLATELET COUNT 407 K/MM3 (134-434); RBC 4.19 M/mm3 (3.60-5.2); WHITE BLOOD COUNT 25.8 K/mm3 (4.0-10.0)
[2017-10-07 07:48] LABS: ANION GAP 14 (8-16); BLOOD UREA NITROGEN 17 mg/dL (7-18); CHLORIDE 103 mmol/L (98-107); CO2 24 mmol/L (21-32); CREATININE 0.9 mg/dL (0.55-1.02); GLUCOSE,RANDOM 176 mg/dL (74-106); POTASSIUM 4.1 mmol/L (3.5-5.1); SODIUM 141 mmol/L (136-145)
[2017-10-07] MEDS ORDERED: PT OWN MED DRAWER 7, Y5N ONE ×2 (09:07→17:37)
[2017-10-07] MEDS: AZITHROMYCIN 250 MG TABLET PO SCH (09:23)
[2017-10-07] MEDS: amLODIPine BESYLATE 5 MG TABLET (FP) PO SCH (09:23)
[2017-10-07] MEDS: LORATADINE 10 MG TABLET PO SCH (09:23)
[2017-10-07] MEDS: NYSTATIN 500,000 UNITS/5 ML SUSPENSION PO SCH (09:23)
[2017-10-07] MEDS: RANITIDINE HCL 150 MG TABLET (FP) PO SCH (09:23)
[2017-10-07] MEDS: HEPARIN NA (PORCINE) 5,000 UNITS/ML 1ML VIAL SQ SCH (09:23)
[2017-10-07] MEDS: BUDESONIDE/FORMETEROL FUMARATE 80/4.5 mcg INHALER IH SCH (09:24)
[2017-10-07] MEDS: NAPROXEN 500 MG TABLET (FP) PO SCH (09:24)
[2017-10-07 10:21] LABS: ANISOCYTOSIS 3+; MACROCYTOSIS 0; PLATELET ESTIMATE NORMAL
[2017-10-07] MEDS: ACETYLCYSTEINE 20% 200MG/ML 4 ML VIAL *FOR ORAL / INH USE ONLY NEB SCH ×2 (10:30→22:45)
[2017-10-07] MEDS: ALBUTEROL SO4 0.083% IH SOL 2.5 MG/3 ML VIAL.NEB. NEB PRN ×2 (10:30→22:46)
--- NOTE | 2017-10-07 13:04 | PN ---
Progress Note, Physician History of Present Illness: pulmonary alert,feeling better,less dyspneic - Current Medication List Current Medications: Active Medications Acetylcysteine (Mucomyst 20 Oral / Inh Use Only*) 600 mg NEB BID [facility] Last Admin: 10/07/17 10:30 Dose: 600 mg Albuterol Sulfate (Ventolin 0.083% Nebulizer Soln -) 1 amp NEB Q4H PRN PRN Reason: SHORT OF BREATH/WHEEZING Last Admin: 10/07/17 10:30 Dose: 1 amp Albuterol/Ipratropium (Duoneb -) 1 amp NEB TIDR [facility] Amlodipine Besylate (Norvasc -) 5 mg PO DAILY [facility] Last Admin: 10/07/17 09:23 Dose: 5 mg Azithromycin (Zithromax -) 500 mg PO DAILY [facility] Last Admin: 10/07/17 09:23 Dose: 500 mg Budesonide/Formoterol Fumarate (Symbicort 80/4.5mcg -) 2 puff IH BID [facility] Last Admin: 10/07/17 09:24 Dose: 2 puff Bupropion HCl (Wellbutrin Xl -) 150 mg PO DAILY [facility] Last Admin: 10/07/17 09:25 Dose: 150 mg Guaifenesin (Diabetic Tussin Dm -) 10 ml PO Q4H [facility] Last Admin: 10/07/17 09:24 Dose: Not Given Heparin Sodium (Porcine) (Heparin -) 5,000 unit SQ BID [facility] Last Admin: 10/07/17 09:23 Dose: 5,000 unit Loratadine (Claritin -) 10 mg PO DAILY [facility] Last Admin: 10/07/17 09:23 Dose: 10 mg Lorazepam (Ativan -) 1 mg PO DAILY PRN PRN Reason: ANXIETY Melatonin (Melatonin) 10 mg PO [facility] Last Admin: 10/06/17 21:26 Dose: 10 mg Methylprednisolone Sodium Succinate (Solu-Medrol -) 40 mg IVPB Q6H-IV [facility] Last Admin: 10/07/17 09:22 Dose: 40 mg Montelukast Sodium (Singulair -) 10 mg PO [facility] Last Admin: 10/06/17 22:36 Dose: 10 mg Naproxen (Naprosyn -) 500 mg PO BID [facility] Last Admin: 10/07/17 09:24 Dose: Not Given Non-Formulary Medication (Cyclosporine [Restasis]) 1 each OU BID [facility] Nystatin (Nystatin Oral Suspension -) 500,000 units PO BID [facility] Last Admin: 10/07/17 09:23 Dose: 500,000 units Ranitidine HCl (Zantac -) 150 mg PO DAILY [facility] Last Admin: 10/07/17 09:23 Dose: 150 mg - Objective Vital Signs: Vital Signs Temperature 97.8 F 10/07/17 10:00 Pulse Rate 108 H 10/07/17 10:00 Respiratory Rate 20 10/07/17 10:00 Blood Pressure 139/73 10/07/17 10:00 O2 Sat by Pulse Oximetry (%) 96 10/05/17 18:23 Constitutional: Yes: Well Nourished, Calm Eyes: Yes: WNL HENT: Yes: WNL Neck: Yes: WNL Cardiovascular: Yes: Regular Rate and Rhythm, S1, S2 Respiratory: Yes: Wheezes (few wheezes) Gastrointestinal: Yes: Normal Bowel Sounds, Soft Extremities: Yes: WNL Edema: Yes (xenia ankle edema) Labs: CBC, BMP 10/07/17 06:45 10/07/17 06:45 Problem List - Problems (1) MGUS (monoclonal gammopathy of unknown significance) Code(s): D47.2 - MONOCLONAL GAMMOPATHY (2) Acute exacerbation of COPD with asthma Code(s): J44.1 - CHRONIC OBSTRUCTIVE PULMONARY DISEASE W (ACUTE) EXACERBATION; J45.901 - UNSPECIFIED ASTHMA WITH (ACUTE) EXACERBATION (3) Moderate persistent chronic asthma with acute exacerbation Code(s): J45.41 - MODERATE PERSISTENT ASTHMA WITH (ACUTE) EXACERBATION (4) Diabetes 1.5, managed as type 2 Code(s): E13.9 - OTHER SPECIFIED DIABETES MELLITUS WITHOUT COMPLICATIONS (5) Respiratory distress Code(s): R06.00 - DYSPNEA, UNSPECIFIED Assessment/Plan IMP ASTHMA/COPD EXACERBATION URI DIASTOLIC HF STEROID INDUCED DM MGUS R/O OSAS PLAN O2 INHALED BRONCHODILATORS IV STEROIDS DIURETICS ABX MONITOR PEAK FLOW SLEEP SCREEN DR GRAHAM Problem List - Problems (1) MGUS (monoclonal gammopathy of unknown significance) Code(s): D47.2 - MONOCLONAL GAMMOPATHY (2) Acute exacerbation of COPD with asthma Code(s): J44.1 - CHRONIC OBSTRUCTIVE PULMONARY DISEASE W (ACUTE) EXACERBATION; J45.901 - UNSPECIFIED ASTHMA WITH (ACUTE) EXACERBATION (3) Moderate persistent chronic asthma with acute exacerbation Code(s): J45.41 - MODERATE PERSISTENT ASTHMA WITH (ACUTE) EXACERBATION (4) Diabetes 1.5, managed as type 2 Code(s): E13.9 - OTHER SPECIFIED DIABETES MELLITUS WITHOUT COMPLICATIONS (5) Respiratory distress Code(s): R06.00 - DYSPNEA, UNSPECIFIED
[2017-10-07] MEDS ORDERED: ALBUTEROL SO4 2.5/IPRATROPIUM 0.5 INH SOL 3 ML VIAL.NEB. NEB SCH (14:00)
--- NOTE | 2017-10-07 16:35 | PN ---
Progress Note, Physician History of Present Illness: Pt states that her breathing is better; still get SOB with activity Pt w/o SOB, CP, palp, abd pain. - Current Medication List Current Medications: Active Medications Acetylcysteine (Mucomyst 20 Oral / Inh Use Only*) 600 mg NEB BID [facility] Last Admin: 10/07/17 10:30 Dose: 600 mg Albuterol/Ipratropium (Duoneb -) 1 amp NEB TIDR [facility] Amlodipine Besylate (Norvasc -) 5 mg PO DAILY [facility] Last Admin: 10/07/17 09:23 Dose: 5 mg Azithromycin (Zithromax -) 500 mg PO DAILY [facility] Last Admin: 10/07/17 09:23 Dose: 500 mg Budesonide/Formoterol Fumarate (Symbicort 80/4.5mcg -) 2 puff IH BID [facility] Last Admin: 10/07/17 09:24 Dose: 2 puff Bupropion HCl (Wellbutrin Xl -) 150 mg PO DAILY [facility] Last Admin: 10/07/17 09:25 Dose: 150 mg Guaifenesin (Diabetic Tussin Dm -) 10 ml PO Q4H [facility] Last Admin: 10/07/17 15:20 Dose: Not Given Heparin Sodium (Porcine) (Heparin -) 5,000 unit SQ BID [facility] Last Admin: 10/07/17 09:23 Dose: 5,000 unit Loratadine (Claritin -) 10 mg PO DAILY [facility] Last Admin: 10/07/17 09:23 Dose: 10 mg Lorazepam (Ativan -) 1 mg PO DAILY PRN PRN Reason: ANXIETY Melatonin (Melatonin) [address] [facility] Last Admin: 10/06/17 21:26 Dose: 10 mg Methylprednisolone Sodium Succinate (Solu-Medrol -) 40 mg IVPB Q6H-IV [facility] Last Admin: 10/07/17 15:53 Dose: 40 mg Montelukast Sodium (Singulair -) [address] [facility] Last Admin: 10/06/17 22:36 Dose: 10 mg Naproxen (Naprosyn -) 500 mg PO BID [facility] Last Admin: 10/07/17 09:24 Dose: Not Given Nystatin (Nystatin Oral Suspension -) 500,000 units PO BID [facility] Last Admin: 10/07/17 09:23 Dose: 500,000 units Ranitidine HCl (Zantac -) 150 mg PO DAILY [facility] Last Admin: 10/07/17 09:23 Dose: 150 mg - Objective Vital Signs: Vital Signs Temperature 98 F 10/07/17 15:23 Pulse Rate 112 H 10/07/17 15:23 Respiratory Rate 20 10/07/17 10:00 Blood Pressure 146/92 10/07/17 15:23 O2 Sat by Pulse Oximetry (%) 96 10/05/17 18:23 Constitutional: Yes: No Distress, Calm Cardiovascular: Yes: Regular Rate and Rhythm, S1, S2 Respiratory: Yes: Regular, CTA Bilaterally. No: Rales Gastrointestinal: Yes: Normal Bowel Sounds, Soft. No: Tenderness Edema: No (pretibial) Neurological: Yes: Alert, Oriented Labs: CBC, BMP 10/07/17 06:45 10/07/17 06:45 Problem List - Problems (1) Asthma exacerbation Code(s): J45.901 - UNSPECIFIED ASTHMA WITH (ACUTE) EXACERBATION (2) Acute exacerbation of COPD with asthma Code(s): J44.1 - CHRONIC OBSTRUCTIVE PULMONARY DISEASE W (ACUTE) EXACERBATION; J45.901 - UNSPECIFIED ASTHMA WITH (ACUTE) EXACERBATION (3) CHF (congestive heart failure) Code(s): I50.9 - HEART FAILURE, UNSPECIFIED (4) Leukocytosis Code(s): D72.829 - ELEVATED WHITE BLOOD CELL COUNT, UNSPECIFIED (5) Shoulder pain, left Code(s): M25.512 - PAIN IN LEFT SHOULDER Assessment/Plan IV Steroids-to joseph in AM to Q*H. Pulmonary consult appreciated AM labs; to monitor WBC, fever curve DVT prophylaxis PT evaluation Case was d/w pt's nurse.
[2017-10-08] MEDS: HEPARIN NA (PORCINE) 5,000 UNITS/ML 1ML VIAL SQ SCH ×3 (00:09→22:24)
[2017-10-08] MEDS: MONTELUKAST NA 10 MG TABLET PO SCH ×2 (00:11→22:24)
[2017-10-08] MEDS: NYSTATIN 500,000 UNITS/5 ML SUSPENSION PO SCH ×3 (00:11→22:24)
[2017-10-08] MEDS: NAPROXEN 500 MG TABLET (FP) PO SCH ×3 (00:11→22:24)
[2017-10-08] MEDS: MELATONIN 5 MG TABLETS PO SCH ×2 (00:11→22:24)
[2017-10-08] MEDS: guaiFENesin/D-M SUGAR-FREE/ACLHOL-FREE 118 ML BOTTLE PO SCH ×7 (00:12→22:25)
[2017-10-08] MEDS: BUDESONIDE/FORMETEROL FUMARATE 80/4.5 mcg INHALER IH SCH ×3 (00:12→22:23)
[2017-10-08] MEDS: methylPREDNISolone NA SUCC 125 MG/2 ML VIAL IVPB SCH ×3 (00:13→09:48)
[2017-10-08] MEDS: ALBUTEROL SO4 0.083% IH SOL 2.5 MG/3 ML VIAL.NEB. NEB PRN ×3 (06:15→22:00)
[2017-10-08 07:35] LABS: HEMATOCRIT 33.5 % (32.4-45.2); HEMOGLOBIN 10.4 GM/dL (10.7-15.3); MCH 24.1 pg (25.7-33.7); MCHC 30.9 g/dl (32.0-36.0); MEAN PLT VOLUME 7.3 fl (7.5-11.1); PLATELET COUNT 400 K/MM3 (134-434); RDW 19.5 % (11.6-15.6); WHITE BLOOD COUNT 24.5 K/mm3 (4.0-10.0)
[2017-10-08 09:00] LABS: CHLORIDE 103 mmol/L (98-107); POTASSIUM 3.9 mmol/L (3.5-5.1); SODIUM 140 mmol/L (136-145)
[2017-10-08 09:04] LABS: ANION GAP 14 (8-16); BLOOD UREA NITROGEN 23 mg/dL (7-18); CALCIUM 8.9 mg/dL (8.5-10.1); CO2 23 mmol/L (21-32); CREATININE 0.9 mg/dL (0.55-1.02); GLUCOSE,RANDOM 171 mg/dL (74-106)
[2017-10-08] MEDS: ACETYLCYSTEINE 20% 200MG/ML 4 ML VIAL *FOR ORAL / INH USE ONLY NEB SCH ×2 (09:23→22:00)
[2017-10-08] MEDS ORDERED: PT OWN MED DRAWER 7, Y5N ONE ×2 (09:38→14:15)
[2017-10-08] MEDS: AZITHROMYCIN 250 MG TABLET PO SCH (09:47)
[2017-10-08] MEDS: LORATADINE 10 MG TABLET PO SCH (09:47)
[2017-10-08] MEDS: amLODIPine BESYLATE 5 MG TABLET (FP) PO SCH (09:47)
[2017-10-08] MEDS: RANITIDINE HCL 150 MG TABLET (FP) PO SCH (09:47)
--- NOTE | 2017-10-08 10:33 | PN ---
Progress Note, Physician History of Present Illness: Pt states that her breathing is better; still get SOB with activity Pt w/o SOB, CP, palp, abd pain. Pt with constipation - Current Medication List Current Medications: Active Medications Acetylcysteine (Mucomyst 20 Oral / Inh Use Only*) 600 mg NEB BID [facility]S [facility] Last Admin: 10/08/17 09:23 Dose: 600 mg Albuterol Sulfate (Ventolin 0.083% Nebulizer Soln -) 1 amp NEB Q6H PRN PRN Reason: SHORT OF BREATH/WHEEZING Last Admin: 10/08/17 09:24 Dose: 1 amp Amlodipine Besylate (Norvasc -) 5 mg PO DAILY [facility] 234 BEDS AT [facility] Last Admin: 10/08/17 09:47 Dose: 5 mg Azithromycin (Zithromax -) 500 mg PO DAILY [facility] 234 B[facility]S AT [facility] Last Admin: 10/08/17 09:47 Dose: 500 mg Budesonide/Formoterol Fumarate (Symbicort 80/4.5mcg -) 2 puff IH BID [facility] B[facility]S AT [facility] Last Admin: 10/08/17 09:47 Dose: 2 puff Bupropion HCl (Wellbutrin Xl -) 150 mg PO DAILY [facility] 234 B[facility]S AT [facility] Last Admin: 10/08/17 09:47 Dose: 150 mg Guaifenesin (Diabetic Tussin Dm -) 10 ml PO Q4H [facility] 234 B[facility]S AT [facility] Last Admin: 10/08/17 09:48 Dose: 10 ml Heparin Sodium (Porcine) (Heparin -) 5,000 unit SQ BID [facility] 234 B[facility]S AT [facility] Last Admin: 10/08/17 09:48 Dose: 5,000 unit Loratadine (Claritin -) 10 mg PO DAILY [facility] 234 B[facility]S [facility] Last Admin: 10/08/17 09:47 Dose: 10 mg Lorazepam (Ativan -) 1 mg PO DAILY PRN PRN Reason: ANXIETY Melatonin (Melatonin) 10 mg PO HS [facility] 234 BEDS AT [facility] Last Admin: 10/08/17 00:11 Dose: 10 mg Methylprednisolone Sodium Succinate (Solu-Medrol -) 40 mg IVPB Q8H-IV [facility] Montelukast Sodium (Singulair -) 10 mg PO HS [facility] 234 BEDS AT [facility] Last Admin: 10/08/17 00:11 Dose: 10 mg Naproxen (Naprosyn -) 500 mg PO BID [facility] 234 B[facility]S AT [facility] Last Admin: 10/08/17 09:49 Dose: Not Given Nystatin (Nystatin Oral Suspension -) 500,000 units PO BID [facility] 234 B[facility]S AT [facility] Last Admin: 10/08/17 09:47 Dose: 500,000 units Ranitidine HCl (Zantac -) 150 mg PO DAILY [facility] Last Admin: 10/08/17 09:47 Dose: 150 mg - Objective Vital Signs: Vital Signs Temperature 98.2 F 10/08/17 09:00 Pulse Rate 88 10/08/17 10:08 Respiratory Rate 18 10/08/17 09:00 Blood Pressure 137/82 10/08/17 09:00 O2 Sat by Pulse Oximetry (%) 96 10/08/17 10:08 Constitutional: Yes: No Distress, Calm Cardiovascular: Yes: Regular Rate and Rhythm, S1, S2 Respiratory: Yes: Regular, Wheezes (minimum with deep inspiration) Gastrointestinal: Yes: Normal Bowel Sounds, Soft. No: Tenderness Edema: No (pretibial) Neurological: Yes: Alert, Oriented Labs: CBC, BMP 10/08/17 07:15 10/08/17 07:15 Problem List - Problems (1) Asthma exacerbation Code(s): J45.901 - UNSPECIFIED ASTHMA WITH (ACUTE) EXACERBATION (2) Acute exacerbation of COPD with asthma Code(s): J44.1 - CHRONIC OBSTRUCTIVE PULMONARY DISEASE W (ACUTE) EXACERBATION; J45.901 - UNSPECIFIED ASTHMA WITH (ACUTE) EXACERBATION (3) CHF (congestive heart failure) Code(s): I50.9 - HEART FAILURE, UNSPECIFIED (4) Leukocytosis Code(s): D72.829 - ELEVATED WHITE BLOOD CELL COUNT, UNSPECIFIED (5) Shoulder pain, left Code(s): M25.512 - PAIN IN LEFT SHOULDER Assessment/Plan IV Steroids-to joseph in AM to Q12H. Pulmonary consult appreciated AM labs; to monitor WBC, fever curve DVT prophylaxis PT evaluation Case was d/w pt's nurse. Miralax once, Senna PRN at night if Miralax doesn't help.
[2017-10-08] MEDS ORDERED: POLYETHYLENE GLYCOL 3350 119 GM BTL PO ONE (10:55)
--- NOTE | 2017-10-08 13:18 | PN ---
Progress Note, Physician History of Present Illness: pulmonary alert,feeling better,less dyspneic.sleep screen + mild mónica AHI 5 - Current Medication List Current Medications: Active Medications Acetylcysteine (Mucomyst 20 Oral / Inh Use Only*) 600 mg NEB BID [facility] Last Admin: 10/08/17 09:23 Dose: 600 mg Albuterol Sulfate (Ventolin 0.083% Nebulizer Soln -) 1 amp NEB Q6H PRN PRN Reason: SHORT OF BREATH/WHEEZING Last Admin: 10/08/17 09:24 Dose: 1 amp Amlodipine Besylate (Norvasc -) 5 mg PO DAILY [facility] Last Admin: 10/08/17 09:47 Dose: 5 mg Azithromycin (Zithromax -) 500 mg PO DAILY [facility] Last Admin: 10/08/17 09:47 Dose: 500 mg Budesonide/Formoterol Fumarate (Symbicort 80/4.5mcg -) 2 puff IH BID [facility] Last Admin: 10/08/17 09:47 Dose: 2 puff Bupropion HCl (Wellbutrin Xl -) 150 mg PO DAILY [facility] Last Admin: 10/08/17 09:47 Dose: 150 mg Guaifenesin (Diabetic Tussin Dm -) 10 ml PO Q4H [facility] Last Admin: 10/08/17 09:48 Dose: 10 ml Heparin Sodium (Porcine) (Heparin -) 5,000 unit SQ BID [facility] Last Admin: 10/08/17 09:48 Dose: 5,000 unit Loratadine (Claritin -) 10 mg PO DAILY [facility] Last Admin: 10/08/17 09:47 Dose: 10 mg Lorazepam (Ativan -) 1 mg PO DAILY PRN PRN Reason: ANXIETY Melatonin (Melatonin) 10 mg PO [facility] Last Admin: 10/08/17 00:11 Dose: 10 mg Methylprednisolone Sodium Succinate (Solu-Medrol -) 40 mg IVPB Q8H-IV [facility] Montelukast Sodium (Singulair -) 10 mg PO [facility] Last Admin: 10/08/17 00:11 Dose: 10 mg Naproxen (Naprosyn -) 500 mg PO BID [facility] Last Admin: 10/08/17 09:49 Dose: Not Given Nystatin (Nystatin Oral Suspension -) 500,000 units PO BID [facility] Last Admin: 10/08/17 09:47 Dose: 500,000 units Ranitidine HCl (Zantac -) 150 mg PO DAILY [facility] Last Admin: 10/08/17 09:47 Dose: 150 mg Senna (Senna -) 2 tab PO HS PRN PRN Reason: CONSTIPATION - Objective Vital Signs: Vital Signs Temperature 98.2 F 10/08/17 09:00 Pulse Rate 88 10/08/17 10:08 Respiratory Rate 18 10/08/17 09:00 Blood Pressure 137/82 10/08/17 09:00 O2 Sat by Pulse Oximetry (%) 96 10/08/17 10:08 Constitutional: Yes: Well Nourished, Calm Eyes: Yes: WNL HENT: Yes: WNL Neck: Yes: WNL Cardiovascular: Yes: Regular Rate and Rhythm, S1, S2 Respiratory: Yes: Wheezes (less wheezes xenia) Gastrointestinal: Yes: Normal Bowel Sounds, Soft Extremities: Yes: WNL Edema: Yes Labs: CBC, BMP 10/08/17 07:15 10/08/17 07:15 Problem List - Problems (1) MGUS (monoclonal gammopathy of unknown significance) Code(s): D47.2 - MONOCLONAL GAMMOPATHY (2) Acute exacerbation of COPD with asthma Code(s): J44.1 - CHRONIC OBSTRUCTIVE PULMONARY DISEASE W (ACUTE) EXACERBATION; J45.901 - UNSPECIFIED ASTHMA WITH (ACUTE) EXACERBATION (3) Moderate persistent chronic asthma with acute exacerbation Code(s): J45.41 - MODERATE PERSISTENT ASTHMA WITH (ACUTE) EXACERBATION (4) Diabetes 1.5, managed as type 2 Code(s): E13.9 - OTHER SPECIFIED DIABETES MELLITUS WITHOUT COMPLICATIONS (5) Respiratory distress Code(s): R06.00 - DYSPNEA, UNSPECIFIED Assessment/Plan IMP ASTHMA/COPD EXACERBATION URI DIASTOLIC HF STEROID INDUCED DM MGUS OSAS MILD AHI 5 PLAN O2 INHALED BRONCHODILATORS IV STEROIDS SAME DOSE DIURETICS ABX MONITOR PEAK FLOW DR GRAHAM Problem List - Problems (1) MGUS (monoclonal gammopathy of unknown significance) Code(s): D47.2 - MONOCLONAL GAMMOPATHY (2) Acute exacerbation of COPD with asthma Code(s): J44.1 - CHRONIC OBSTRUCTIVE PULMONARY DISEASE W (ACUTE) EXACERBATION; J45.901 - UNSPECIFIED ASTHMA WITH (ACUTE) EXACERBATION (3) Moderate persistent chronic asthma with acute exacerbation Code(s): J45.41 - MODERATE PERSISTENT ASTHMA WITH (ACUTE) EXACERBATION (4) Diabetes 1.5, managed as type 2 Code(s): E13.9 - OTHER SPECIFIED DIABETES MELLITUS WITHOUT COMPLICATIONS (5) Respiratory distress Code(s): R06.00 - DYSPNEA, UNSPECIFIED
[2017-10-08] MEDS: methylPREDNISolone NA SUCC 40 MG/1 ML VIAL IVPB SCH (17:22)
[2017-10-08] MEDS: SENNOSIDES 8.6MG TABLET (FP) PO PRN (22:24)
[2017-10-09] MEDS: methylPREDNISolone NA SUCC 40 MG/1 ML VIAL IVPB SCH ×2 (02:29→10:08)
[2017-10-09] MEDS: guaiFENesin/D-M SUGAR-FREE/ACLHOL-FREE 118 ML BOTTLE PO SCH ×6 (02:29→22:50)
[2017-10-09] MEDS: amLODIPine BESYLATE 5 MG TABLET (FP) PO SCH (10:07)
[2017-10-09] MEDS: HEPARIN NA (PORCINE) 5,000 UNITS/ML 1ML VIAL SQ SCH ×2 (10:07→22:19)
[2017-10-09] MEDS: AZITHROMYCIN 250 MG TABLET PO SCH (10:07)
[2017-10-09] MEDS: RANITIDINE HCL 150 MG TABLET (FP) PO SCH (10:07)
[2017-10-09] MEDS: NYSTATIN 500,000 UNITS/5 ML SUSPENSION PO SCH ×2 (10:07→22:20)
[2017-10-09] MEDS: LORATADINE 10 MG TABLET PO SCH (10:07)
[2017-10-09] MEDS: BUDESONIDE/FORMETEROL FUMARATE 80/4.5 mcg INHALER IH SCH ×2 (10:09→22:20)
[2017-10-09] MEDS: NAPROXEN 500 MG TABLET (FP) PO SCH ×2 (10:11→22:20)
[2017-10-09] MEDS: ACETYLCYSTEINE 20% 200MG/ML 4 ML VIAL *FOR ORAL / INH USE ONLY NEB SCH ×2 (10:15→22:15)
[2017-10-09] MEDS: ALBUTEROL SO4 0.083% IH SOL 2.5 MG/3 ML VIAL.NEB. NEB PRN ×2 (10:15→22:15)
--- NOTE | 2017-10-09 11:15 | CON.CARD ---
Cardiology Consult (text) - Consultation Consultation Note: - History of Present Illness Chief Complaint: sob, cough History of Present Illness: 62yo female presented with several days of cough and sob. Feels like her usual copd. Also for past few months has le edema. No cp, palps, dizzy, loc, pnd. no palpitations. 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) Cardio/Vascular: Yes: CHF (Diastolic) Pulmonary: Yes: Asthma, COPD Gastrointestinal: Yes: GERD Endocrine: Yes: Hypothyroidism - Alcohol/Substance Use Hx Alcohol Use: No - Smoking History Smoking history: Unknown if ever smoked Have you smoked in the past 12 months: No Aproximately how many cigarettes per day: 1 If you are a former smoker, when did you quit?: 2014 - Social History History of Recent Travel: No Home Medications - Allergies Allergies/Adverse Reactions: Allergies Allergy/AdvReac Type Severity Reaction Status Date / Time Penicillins Allergy Intermediate Rash Verified 10/05/17 11:24 fluoroquinolones Allergy Severe Difficulty Uncoded 10/05/17 11:24 Breathing - Home Medications Home Medications Medication Instructions Recorded Albuterol Sulfate Inhaler - 2 puff IH Q4H PRN 09/11/15 [Ventolin HFA Inhaler -] BUPROPion HCL "SR" [Wellbutrin Sr 100 mg PO DAILY 02/14/17 -] Montelukast Na [Singulair -] 10 mg PO HS 02/14/17 Albuterol 0.083% Nebulizer Yadira 1 amp NEB Q4H PRN #0 amp 03/03/17 [Ventolin 0.083% Nebulizer Soln -] Albuterol 2.5/Ipratropium 0.5 1 amp NEB TIDR amp 03/03/17 [Duoneb -] Budesonide/Formeterol Fumarate 2 inh PO BID 08/23/17 [SYMBICORT 80/4.5mcg -] Cetirizine HCl [Zyrtec -] 10 mg PO DAILY 08/23/17 Cyclosporine [Restasis] 1 each OU BID 08/23/17 Famotidine [Pepcid] 40 mg PO DAILY 08/23/17 Lorazepam 1 mg PO DAILY PRN 08/23/17 Acetylcysteine 10% [Mucomyst] 600 mg GT BID #360 ml 08/31/17 Amlodipine Besylate [Norvasc -] 5 mg PO DAILY #30 tablet 08/31/17 Melatonin 10 mg PO HS #60 tab 08/31/17 Prednisone 40 mg PO DAILY 09/21/17 Naproxen 500 mg PO BID 10/05/17 Nystatin 100,000 unit PO BID 10/05/17 Family Disease History - Family Disease History Family History: Denies (no cmp) Review of Systems - Review of Systems Constitutional: denies: Chills, Fever Eyes: denies: Eye Pain HENT: denies: Nasal Congestion Neck: denies: Stiffness Cardiovascular: denies: Palpitations Respiratory: reports: Cough, Wheezing Gastrointestinal: denies: Diarrhea, Rectal Bleeding Genitourinary: denies: Burning, Hematuria Musculoskeletal: denies: Muscle Pain Integumentary: denies: Rash Neurological: denies: Numbness, Seizure, Syncope Endocrine: denies: Excessive Sweating Hematology/Lymphatic: denies: Excessive Bleeding Vital Signs: Vital Signs Period Temp Pulse Resp BP Sys/Stringer Pulse Ox Last 24 Hr 97.5 F-98.4 F 80-98 18-20 138-145/68-92 96 Constitutional: Yes: Well Nourished, No Distress Eyes: No: Sclera Icterus HENT: No: Nasal Congestion Neck: No: Decreased ROM Respiratory: Yes: Wheezes. No: Accessory Muscle Use, Rales Gastrointestinal: Yes: Normal Bowel Sounds. No: Distention, Hepatomegaly, Palpable Mass, Tenderness Cardiovascular: Yes: Regular Rate and Rhythm JVD: No Carotid Bruit: No PMI: Non-Displaced Heart Sounds: Yes: S1, S2. No: Gallop Murmur: No: Systolic Murmur, Diastolic Murmur Extremities: No: Cold, Cyanosis Edema: trace pedal edema bl Peripheral Pulses: 2+ Left Carotid, 2+ Right Carotid, 2+ Left Doralis Pedis, 2+ Right Dorsalis Pedis Integumentary: No: Jaundice Neurological: Yes: Alert, Oriented (x3) Psychiatric: No: Agitated - Other Data Labs, Other Data: Laboratory Last Values WBC 24.5 K/mm3 (4.0-10.0) H 10/08/17 07:15 RBC 4.30 M/mm3 (3.60-5.2) 10/08/17 07:15 Hgb 10.4 GM/dL (10.7-15.3) L 10/08/17 07:15 Hct 33.5 % (32.4-45.2) 10/08/17 07:15 MCV 78.0 fl (80-96) L 10/08/17 07:15 MCH 24.1 pg (25.7-33.7) L 10/08/17 07:15 MCHC 30.9 g/dl (32.0-36.0) L 10/08/17 07:15 RDW 19.5 % (11.6-15.6) H 10/08/17 07:15 Plt Count 400 K/MM3 (134-434) 10/08/17 07:15 MPV 7.3 fl (7.5-11.1) L 10/08/17 07:15 Total Counted 100 10/07/17 06:45 Neutrophils % No Result Required. 10/07/17 06:45 Neutrophils % (Manual) 86.9 % (42.8-82.8) H 10/07/17 06:45 Band Neutrophils % 3.0 % 10/07/17 06:45 Lymphocytes % No Result Required. 10/07/17 06:45 Lymphocytes % (Manual) 7.1 % (8-40) L 10/07/17 06:45 Monocytes % (Manual) 1 % (3.8-10.2) L 10/07/17 06:45 Eosinophils % (Manual) 0.0 % (0-4.5) 10/07/17 06:45 Basophils % (Manual) 0.0 % (0-2.0) 10/07/17 06:45 Myelocytes % (Man) 2 % (0-2) D 10/07/17 06:45 Metamyelocytes 0 % (0-2) D 10/07/17 06:45 Hypochromia 0 10/07/17 06:45 Platelet Estimate Normal 10/07/17 06:45 Polychromasia 0 10/07/17 06:45 Poikilocytosis 0 10/07/17 06:45 Anisocytosis 3+ 10/07/17 06:45 Microcytosis 3+ 10/07/17 06:45 Macrocytosis 0 10/07/17 06:45 Sodium 140 mmol/L (136-145) 10/08/17 07:15 Potassium 3.9 mmol/L (3.5-5.1) 10/08/17 07:15 Chloride 103 mmol/L (98-107) 10/08/17 07:15 Carbon Dioxide 23 mmol/L (21-32) 10/08/17 07:15 Anion Gap 14 (8-16) 10/08/17 07:15 BUN 23 mg/dL (7-18) H D 10/08/17 07:15 Creatinine 0.9 mg/dL (0.55-1.02) 10/08/17 07:15 Creat Clearance w eGFR > 60 (>60) 10/06/17 07:00 Random Glucose 171 mg/dL (74-106) H 10/08/17 07:15 Calcium 8.9 mg/dL (8.5-10.1) 10/08/17 07:15 Total Bilirubin 0.4 mg/dL (0.2-1.0) D 10/06/17 07:00 AST 14 U/L (15-37) L D 10/06/17 07:00 ALT 38 U/L (12-78) 10/06/17 07:00 Alkaline Phosphatase 60 U/L (45-117) 10/06/17 07:00 Creatine Kinase 132 IU/L (26-192) 10/05/17 12:10 Troponin I < 0.02 ng/ml (0.00-0.05) 10/05/17 12:10 B-Natriuretic Peptide 20.47 pg/ml (5-125) 10/05/17 12:10 Total Protein 6.6 g/dl (6.4-8.2) 10/06/17 07:00 Albumin 3.1 g/dl (3.4-5.0) L 10/06/17 07:00 Urine Color Straw 10/05/17 11:58 Urine Appearance Clear 10/05/17 11:58 Urine pH 6.0 (5.0-8.0) 10/05/17 11:58 Ur Specific Dewey 1.004 (1.001-1.035) 10/05/17 11:58 Urine Protein Negative (NEGATIVE) 01/02/18 11:58 Urine Glucose (UA) Negative (NEGATIVE) 10/05/17 11:58 Urine Ketones Negative (NEGATIVE) 10/05/17 11:58 Urine Blood 1+ (NEGATIVE) H 10/05/17 11:58 Urine Nitrite Negative (NEGATIVE) 10/05/17 11:58 Urine Bilirubin Negative (NEGATIVE) 10/05/17 11:58 Urine Urobilinogen Negative mg/dL (0.2-1.0) 10/05/17 11:58 Ur Leukocyte Esterase Negative (NEGATIVE) 10/05/17 11:58 Urine WBC (Auto) 3 /hpf (3-5) 10/05/17 11:58 Urine RBC (Auto) 1 /hpf (0-3) 10/05/17 11:58 Ur Epithelial Cells Rare /HPF (FEW) 10/05/17 11:58 Echo 02/2017: tds. nl lv/rv. valves not well seen but no sig ab. dobutamine stress 02/2017: suboptimal, target HR not achieved. occ pvc's seen. diaphragmatic attenuation, no ischemica. EF 73% cta chest: no pe, no chf ecg 10/05/17: sr, nl intervals, no ischemic changes Assessment/Plan 62yo with h/o dchf, hld, COPD, chronic hypoxic respiratory failure on home O2, longtime prior cigs, GERD, osteoporosis, Essie's thyroiditis, MGUS, PTX s/p vats here with sob. sob, copd: -no signs of acs or pulm edema -current sxs seem to be from copd, cont tx per pmd/pulm HTN: -stable off meds HPL: -cont home statin chronic diastolic chf, le venous insuff: -no signs pulm edema or acute chf -ct chest w/o chf -bnp low -will start lasix 20 po qd for le edema
--- NOTE | 2017-10-09 12:30 | PN ---
Progress Note, Physician History of Present Illness: pulmonary alert,feeling better,less dyspneic - Current Medication List Current Medications: Active Medications Acetylcysteine (Mucomyst 20 Oral / Inh Use Only*) 600 mg NEB BID [facility] Last Admin: 10/09/17 10:15 Dose: 600 mg Albuterol Sulfate (Ventolin 0.083% Nebulizer Soln -) 1 amp NEB Q6H PRN PRN Reason: SHORT OF BREATH/WHEEZING Last Admin: 10/09/17 10:15 Dose: 1 amp Amlodipine Besylate (Norvasc -) 5 mg PO DAILY [facility] Last Admin: 10/09/17 10:07 Dose: 5 mg Azithromycin (Zithromax -) 500 mg PO DAILY [facility] Last Admin: 10/09/17 10:07 Dose: 500 mg Budesonide/Formoterol Fumarate (Symbicort 80/4.5mcg -) 2 puff IH BID [facility] Last Admin: 10/09/17 10:09 Dose: 2 puff Bupropion HCl (Wellbutrin Xl -) 150 mg PO DAILY [facility] Last Admin: 10/09/17 10:10 Dose: 150 mg Furosemide (Lasix -) 20 mg PO DAILY [facility] Guaifenesin (Diabetic Tussin Dm -) 10 ml PO Q4H [facility] Last Admin: 10/09/17 11:02 Dose: 10 ml Heparin Sodium (Porcine) (Heparin -) 5,000 unit SQ BID [facility] Last Admin: 10/09/17 10:07 Dose: 5,000 unit Loratadine (Claritin -) 10 mg PO DAILY [facility] Last Admin: 10/09/17 10:07 Dose: 10 mg Lorazepam (Ativan -) 1 mg PO DAILY PRN PRN Reason: ANXIETY Melatonin (Melatonin) 10 mg PO [facility] Last Admin: 10/08/17 22:24 Dose: 10 mg Methylprednisolone Sodium Succinate (Solu-Medrol -) 40 mg IVPB Q8H-IV [facility] Last Admin: 10/09/17 10:08 Dose: 40 mg Montelukast Sodium (Singulair -) 10 mg PO [facility] Last Admin: 10/08/17 22:24 Dose: 10 mg Naproxen (Naprosyn -) 500 mg PO BID [facility] Last Admin: 10/09/17 10:11 Dose: Not Given Nystatin (Nystatin Oral Suspension -) 500,000 units PO BID [facility] Last Admin: 10/09/17 10:07 Dose: 500,000 units Ranitidine HCl (Zantac -) 150 mg PO DAILY [facility] Last Admin: 10/09/17 10:07 Dose: 150 mg Senna (Senna -) 2 tab PO HS PRN PRN Reason: CONSTIPATION Last Admin: 10/08/17 22:24 Dose: 2 tab - Objective Vital Signs: Vital Signs Temperature 98.2 F 10/09/17 08:58 Pulse Rate 94 H 10/09/17 08:58 Respiratory Rate 20 10/09/17 08:58 Blood Pressure 143/86 10/09/17 08:58 O2 Sat by Pulse Oximetry (%) 96 10/08/17 21:00 Constitutional: Yes: Well Nourished, Calm Eyes: Yes: WNL HENT: Yes: WNL Neck: Yes: WNL Cardiovascular: Yes: Regular Rate and Rhythm, S1, S2 Respiratory: Yes: Wheezes (few scattered wheezes) Gastrointestinal: Yes: Normal Bowel Sounds, Soft Extremities: Yes: WNL Edema: Yes Labs: CBC, BMP 10/08/17 07:15 10/08/17 07:15 Problem List - Problems (1) MGUS (monoclonal gammopathy of unknown significance) Code(s): D47.2 - MONOCLONAL GAMMOPATHY (2) Acute exacerbation of COPD with asthma Code(s): J44.1 - CHRONIC OBSTRUCTIVE PULMONARY DISEASE W (ACUTE) EXACERBATION; J45.901 - UNSPECIFIED ASTHMA WITH (ACUTE) EXACERBATION (3) Moderate persistent chronic asthma with acute exacerbation Code(s): J45.41 - MODERATE PERSISTENT ASTHMA WITH (ACUTE) EXACERBATION (4) Diabetes 1.5, managed as type 2 Code(s): E13.9 - OTHER SPECIFIED DIABETES MELLITUS WITHOUT COMPLICATIONS (5) Respiratory distress Code(s): R06.00 - DYSPNEA, UNSPECIFIED Assessment/Plan IMP ASTHMA/COPD EXACERBATION URI DIASTOLIC HF STEROID INDUCED DM MGUS OSAS MILD AHI 5 PLAN O2 INHALED BRONCHODILATORS STEROID TAPER DIURETICS ABX MONITOR PEAK FLOW DR GRAHAM Problem List - Problems (1) MGUS (monoclonal gammopathy of unknown significance) Code(s): D47.2 - MONOCLONAL GAMMOPATHY (2) Acute exacerbation of COPD with asthma Code(s): J44.1 - CHRONIC OBSTRUCTIVE PULMONARY DISEASE W (ACUTE) EXACERBATION; J45.901 - UNSPECIFIED ASTHMA WITH (ACUTE) EXACERBATION (3) Moderate persistent chronic asthma with acute exacerbation Code(s): J45.41 - MODERATE PERSISTENT ASTHMA WITH (ACUTE) EXACERBATION (4) Diabetes 1.5, managed as type 2 Code(s): E13.9 - OTHER SPECIFIED DIABETES MELLITUS WITHOUT COMPLICATIONS (5) Respiratory distress Code(s): R06.00 - DYSPNEA, UNSPECIFIED
[2017-10-09] MEDS ORDERED: methylPREDNISolone NA SUCC 40 MG/1 ML VIAL IVPB SCH (12:31)
[2017-10-09] MEDS: FUROSEMIDE 20 MG TABLET (FP) PO SCH (13:06)
--- NOTE | 2017-10-09 13:09 | PN ---
Progress Note, Physician History of Present Illness: Pt states that her breathing is better; still get SOB with activity Pt w/o SOB, CP, palp, abd pain. Pt with constipation, fogot to ask for Senna last night. - Current Medication List Current Medications: Active Medications Acetylcysteine (Mucomyst 20 Oral / Inh Use Only*) 600 mg NEB BID [facility] Last Admin: 10/09/17 10:15 Dose: 600 mg Albuterol Sulfate (Ventolin 0.083% Nebulizer Soln -) 1 amp NEB Q6H PRN PRN Reason: SHORT OF BREATH/WHEEZING Last Admin: 10/09/17 10:15 Dose: 1 amp Amlodipine Besylate (Norvasc -) 5 mg PO DAILY [facility] Last Admin: 10/09/17 10:07 Dose: 5 mg Azithromycin (Zithromax -) 500 mg PO DAILY [facility] Last Admin: 10/09/17 10:07 Dose: 500 mg Budesonide/Formoterol Fumarate (Symbicort 80/4.5mcg -) 2 puff IH BID [facility] Last Admin: 10/09/17 10:09 Dose: 2 puff Bupropion HCl (Wellbutrin Xl -) 150 mg PO DAILY [facility] Last Admin: 10/09/17 10:10 Dose: 150 mg Furosemide (Lasix -) 20 mg PO DAILY [facility] Last Admin: 10/09/17 13:06 Dose: 20 mg Guaifenesin (Diabetic Tussin Dm -) 10 ml PO Q4H [facility] Last Admin: 10/09/17 11:02 Dose: 10 ml Heparin Sodium (Porcine) (Heparin -) 5,000 unit SQ BID [facility] Last Admin: 10/09/17 10:07 Dose: 5,000 unit Loratadine (Claritin -) 10 mg PO DAILY [facility] Last Admin: 10/09/17 10:07 Dose: 10 mg Lorazepam (Ativan -) 1 mg PO DAILY PRN PRN Reason: ANXIETY Melatonin (Melatonin) 10 mg PO HS [facility] Last Admin: 10/08/17 22:24 Dose: 10 mg Methylprednisolone Sodium Succinate (Solu-Medrol -) 40 mg IVPB Q12H [facility] Montelukast Sodium (Singulair -) 10 mg PO HS [facility] Last Admin: 10/08/17 22:24 Dose: 10 mg Naproxen (Naprosyn -) 500 mg PO BID [facility] Last Admin: 10/09/17 10:11 Dose: Not Given Nystatin (Nystatin Oral Suspension -) 500,000 units PO BID [facility] Last Admin: 10/09/17 10:07 Dose: 500,000 units Ranitidine HCl (Zantac -) 150 mg PO DAILY [facility] Last Admin: 10/09/17 10:07 Dose: 150 mg Senna (Senna -) 2 tab PO HS PRN PRN Reason: CONSTIPATION Last Admin: 10/08/17 22:24 Dose: 2 tab - Objective Vital Signs: Vital Signs Temperature 98.2 F 10/09/17 08:58 Pulse Rate 94 H 10/09/17 08:58 Respiratory Rate 20 10/09/17 08:58 Blood Pressure 143/86 10/09/17 08:58 O2 Sat by Pulse Oximetry (%) 96 10/08/17 21:00 Constitutional: Yes: No Distress Cardiovascular: Yes: Regular Rate and Rhythm, S1, S2 Respiratory: Yes: Regular, Rales. No: Wheezes Gastrointestinal: Yes: Normal Bowel Sounds, Soft. No: Tenderness Edema: No Neurological: Yes: Alert, Oriented Labs: CBC, BMP 10/08/17 07:15 10/08/17 07:15 Problem List - Problems (1) Asthma exacerbation Code(s): J45.901 - UNSPECIFIED ASTHMA WITH (ACUTE) EXACERBATION (2) Acute exacerbation of COPD with asthma Code(s): J44.1 - CHRONIC OBSTRUCTIVE PULMONARY DISEASE W (ACUTE) EXACERBATION; J45.901 - UNSPECIFIED ASTHMA WITH (ACUTE) EXACERBATION (3) CHF (congestive heart failure) Code(s): I50.9 - HEART FAILURE, UNSPECIFIED (4) Leukocytosis Code(s): D72.829 - ELEVATED WHITE BLOOD CELL COUNT, UNSPECIFIED (5) Shoulder pain, left Code(s): M25.512 - PAIN IN LEFT SHOULDER (6) Constipation Code(s): K59.00 - CONSTIPATION, UNSPECIFIED Assessment/Plan IV Steroids-to joseph in AM to Q12H. Pulmonary consult appreciated AM labs; to monitor WBC, fever curve DVT prophylaxis PT evaluation Case was d/w pt's nurse. Miralax
[2017-10-09] MEDS ORDERED: PT OWN MED DRAWER 7, Y5N ONE ×2 (22:11→23:06)
[2017-10-09] MEDS: MELATONIN 5 MG TABLETS PO SCH (22:19)
[2017-10-09] MEDS: methylPREDNISolone NA SUCC 40 MG/1 ML VIAL IVPUSH SCH (22:20)
[2017-10-09] MEDS: MONTELUKAST NA 10 MG TABLET PO SCH (22:22)
[2017-10-09] MEDS: SENNOSIDES 8.6MG TABLET (FP) PO PRN (22:23)
[2017-10-10] MEDS: guaiFENesin/D-M SUGAR-FREE/ACLHOL-FREE 118 ML BOTTLE PO SCH ×6 (01:44→21:05)
[2017-10-10] MEDS: NYSTATIN 500,000 UNITS/5 ML SUSPENSION PO SCH ×2 (09:21→21:05)
[2017-10-10] MEDS: AZITHROMYCIN 250 MG TABLET PO SCH (09:24)
[2017-10-10] MEDS: FUROSEMIDE 20 MG TABLET (FP) PO SCH (09:24)
[2017-10-10] MEDS: methylPREDNISolone NA SUCC 40 MG/1 ML VIAL IVPUSH SCH ×2 (09:24→21:05)
[2017-10-10] MEDS: LORATADINE 10 MG TABLET PO SCH (09:24)
[2017-10-10] MEDS: amLODIPine BESYLATE 5 MG TABLET (FP) PO SCH (09:24)
[2017-10-10] MEDS: RANITIDINE HCL 150 MG TABLET (FP) PO SCH (09:24)
[2017-10-10] MEDS: HEPARIN NA (PORCINE) 5,000 UNITS/ML 1ML VIAL SQ SCH ×2 (09:24→21:05)
[2017-10-10] MEDS: NAPROXEN 500 MG TABLET (FP) PO SCH ×2 (09:25→21:05)
[2017-10-10] MEDS: BUDESONIDE/FORMETEROL FUMARATE 80/4.5 mcg INHALER IH SCH ×2 (09:25→21:05)
--- NOTE | 2017-10-10 11:05 | PN ---
Progress Note (short form) - Note Progress Note: s: sob improving, no cp palps dizzy; le edema better o: Vital Signs Period Temp Pulse Resp BP Sys/Stringer Pulse Ox Last 24 Hr 97.8 F-98.2 F 84-98 20-20 118-136/71-81 97 Constitutional: Yes: Well Nourished, No Distress Eyes: No: Sclera Icterus Respiratory: Yes: Wheezes. No: Accessory Muscle Use, Rales Gastrointestinal: Yes: Normal Bowel Sounds. No: Distention, Hepatomegaly, Palpable Mass, Tenderness Cardiovascular: Yes: Regular Rate and Rhythm JVD: No Heart Sounds: Yes: S1, S2. No: Gallop Murmur: No: Systolic Murmur, Diastolic Murmur Extremities: No: Cold, Cyanosis Edema: trace pedal edema bl Integumentary: No: Jaundice Neurological: Yes: Alert, Oriented (x3) Psychiatric: No: Agitated Current Medications Generic Name Dose Route Start Last Admin Trade Name Freq PRN Reason Stop Dose Admin Acetylcysteine 600 mg 10/05/17 23:46 10/09/17 22:15 Mucomyst 20 Oral / Inh Use Only* NEB 600 mg BID [facility]AM[facility] Administration Albuterol Sulfate 1 amp 10/07/17 18:09 10/09/17 22:15 Ventolin 0.083% Nebulizer Soln - NEB 1 amp Q6H PRN Administration SHORT OF BREATH/WHEEZING Amlodipine Besylate 5 mg 10/06/17 10:00 10/10/17 09:24 Norvasc - PO 5 mg DAILY [facility] Administration Azithromycin 500 mg 10/06/17 14:00 10/10/17 09:24 Zithromax - PO 500 mg DAILY [facility] Administration Budesonide/Formoterol Fumarate 2 puff 10/05/17 22:00 10/10/17 09:25 Symbicort 80/4.5mcg - IH 2 puff BID [facility] Administration Bupropion HCl 150 mg 10/06/17 10:00 10/10/17 09:25 Wellbutrin Xl - PO 150 mg DAILY [facility] Administration Furosemide 20 mg 10/09/17 11:15 10/10/17 09:24 Lasix - PO 20 mg DAILY [facility] Administration Guaifenesin 10 ml 10/05/17 18:00 10/10/17 09:23 Diabetic Tussin Dm - PO 10 ml Q4H [facility] Administration Heparin Sodium (Porcine) 5,000 unit 10/05/17 22:00 10/10/17 09:24 Heparin - SQ 5,000 unit BID [facility] Administration Loratadine 10 mg 10/06/17 10:00 10/10/17 09:24 Claritin - PO 10 mg DAILY [facility] Administration Lorazepam 1 mg 10/05/17 17:19 Ativan - PO DAILY PRN ANXIETY Melatonin 10 mg 10/05/17 22:00 10/09/17 22:19 Melatonin PO 10 mg HS [facility] Administration Methylprednisolone Sodium Succinate 40 mg 10/09/17 22:00 10/10/17 09:24 Solu-Medrol - IVPUSH 40 mg BID [facility] Administration Montelukast Sodium 10 mg 10/05/17 22:00 10/09/17 22:22 Singulair - PO 10 mg HS [facility] Administration Naproxen 500 mg 10/05/17 22:00 10/10/17 09:25 Naprosyn - PO Not Given BID [facility] Nystatin 500,000 units 10/05/17 22:30 10/10/17 09:21 Nystatin Oral Suspension - PO 500,000 units BID [facility] Administration Ranitidine HCl 150 mg 10/06/17 10:00 10/10/17 09:24 Zantac - PO 150 mg DAILY [facility] Administration Senna 2 tab 10/08/17 10:55 10/09/17 22:23 Senna - PO 2 tab HS PRN Administration CONSTIPATION CBC, BMP 10/08/17 07:15 10/08/17 07:15 Echo 02/2017: tds. nl lv/rv. valves not well seen but no sig ab. dobutamine stress 02/2017: suboptimal, target HR not achieved. occ pvc's seen. diaphragmatic attenuation, no ischemica. EF 73% cta chest: no pe, no chf ecg 10/05/17: sr, nl intervals, no ischemic changes Assessment/Plan 62yo with h/o dchf, hld, COPD, chronic hypoxic respiratory failure on home O2, longtime prior cigs, GERD, osteoporosis, Essie's thyroiditis, MGUS, PTX s/p vats here with sob. sob, copd: -no signs of acs or pulm edema -current sxs seem to be from copd, cont tx per pmd/pulm HTN: -stable off meds HPL: -cont home statin chronic diastolic chf, le venous insuff: -no signs pulm edema or acute chf -ct chest w/o chf -bnp low -started lasix 20 po qd here for le edema
[2017-10-10] MEDS: ACETYLCYSTEINE 20% 200MG/ML 4 ML VIAL *FOR ORAL / INH USE ONLY NEB SCH ×2 (11:17→22:43)
[2017-10-10] MEDS: ALBUTEROL SO4 0.083% IH SOL 2.5 MG/3 ML VIAL.NEB. NEB PRN ×2 (11:18→22:42)
--- NOTE | 2017-10-10 12:31 | PN ---
Progress Note, Physician History of Present Illness: pulmonary alert,feeling better,less dyspneic - Current Medication List Current Medications: Active Medications Acetylcysteine (Mucomyst 20 Oral / Inh Use Only*) 600 mg NEB BID [facility] Last Admin: 10/10/17 11:17 Dose: 600 mg Albuterol Sulfate (Ventolin 0.083% Nebulizer Soln -) 1 amp NEB Q6H PRN PRN Reason: SHORT OF BREATH/WHEEZING Last Admin: 10/10/17 11:18 Dose: 1 amp Amlodipine Besylate (Norvasc -) 5 mg PO DAILY [facility] Last Admin: 10/10/17 09:24 Dose: 5 mg Azithromycin (Zithromax -) 500 mg PO DAILY [facility] Last Admin: 10/10/17 09:24 Dose: 500 mg Budesonide/Formoterol Fumarate (Symbicort 80/4.5mcg -) 2 puff IH BID [facility] Last Admin: 10/10/17 09:25 Dose: 2 puff Bupropion HCl (Wellbutrin Xl -) 150 mg PO DAILY [facility] Last Admin: 10/10/17 09:25 Dose: 150 mg Furosemide (Lasix -) 20 mg PO DAILY [facility] Last Admin: 10/10/17 09:24 Dose: 20 mg Guaifenesin (Diabetic Tussin Dm -) 10 ml PO Q4H [facility] Last Admin: 10/10/17 09:23 Dose: 10 ml Heparin Sodium (Porcine) (Heparin -) 5,000 unit SQ BID [facility] Last Admin: 10/10/17 09:24 Dose: 5,000 unit Loratadine (Claritin -) 10 mg PO DAILY [facility] Last Admin: 10/10/17 09:24 Dose: 10 mg Lorazepam (Ativan -) 1 mg PO DAILY PRN PRN Reason: ANXIETY Melatonin (Melatonin) 10 mg PO HS [facility] Last Admin: 10/09/17 22:19 Dose: 10 mg Methylprednisolone Sodium Succinate (Solu-Medrol -) 40 mg IVPUSH BID [facility] Last Admin: 10/10/17 09:24 Dose: 40 mg Montelukast Sodium (Singulair -) 10 mg PO HS [facility] Last Admin: 10/09/17 22:22 Dose: 10 mg Naproxen (Naprosyn -) 500 mg PO BID [facility] Last Admin: 10/10/17 09:25 Dose: Not Given Nystatin (Nystatin Oral Suspension -) 500,000 units PO BID [facility] Last Admin: 10/10/17 09:21 Dose: 500,000 units Ranitidine HCl (Zantac -) 150 mg PO DAILY [facility] Last Admin: 10/10/17 09:24 Dose: 150 mg Senna (Senna -) 2 tab PO HS PRN PRN Reason: CONSTIPATION Last Admin: 10/09/17 22:23 Dose: 2 tab - Objective Vital Signs: Vital Signs Temperature 97.8 F 10/10/17 09:51 Pulse Rate 84 10/10/17 09:51 Respiratory Rate 20 10/10/17 09:51 Blood Pressure 118/81 10/10/17 09:51 O2 Sat by Pulse Oximetry (%) 97 10/10/17 09:00 Constitutional: Yes: Well Nourished, Calm Eyes: Yes: WNL HENT: Yes: WNL Neck: Yes: WNL Cardiovascular: Yes: Regular Rate and Rhythm, S1, S2 Respiratory: Yes: Wheezes (few scattered xenia wheezes) Gastrointestinal: Yes: Normal Bowel Sounds, Soft Extremities: Yes: WNL Edema: Yes Labs: CBC, BMP Problem List - Problems (1) MGUS (monoclonal gammopathy of unknown significance) Code(s): D47.2 - MONOCLONAL GAMMOPATHY (2) Acute exacerbation of COPD with asthma Code(s): J44.1 - CHRONIC OBSTRUCTIVE PULMONARY DISEASE W (ACUTE) EXACERBATION; J45.901 - UNSPECIFIED ASTHMA WITH (ACUTE) EXACERBATION (3) Moderate persistent chronic asthma with acute exacerbation Code(s): J45.41 - MODERATE PERSISTENT ASTHMA WITH (ACUTE) EXACERBATION (4) Diabetes 1.5, managed as type 2 Code(s): E13.9 - OTHER SPECIFIED DIABETES MELLITUS WITHOUT COMPLICATIONS (5) Respiratory distress Code(s): R06.00 - DYSPNEA, UNSPECIFIED Assessment/Plan IMP ASTHMA/COPD EXACERBATION improving URI DIASTOLIC HF STEROID INDUCED DM MGUS OSAS MILD AHI 5 PLAN O2 INHALED BRONCHODILATORS STEROID TAPER DIURETICS ABX MONITOR PEAK FLOW DR GRAHAM Problem List - Problems (1) MGUS (monoclonal gammopathy of unknown significance) Code(s): D47.2 - MONOCLONAL GAMMOPATHY (2) Acute exacerbation of COPD with asthma Code(s): J44.1 - CHRONIC OBSTRUCTIVE PULMONARY DISEASE W (ACUTE) EXACERBATION; J45.901 - UNSPECIFIED ASTHMA WITH (ACUTE) EXACERBATION (3) Moderate persistent chronic asthma with acute exacerbation Code(s): J45.41 - MODERATE PERSISTENT ASTHMA WITH (ACUTE) EXACERBATION (4) Diabetes 1.5, managed as type 2 Code(s): E13.9 - OTHER SPECIFIED DIABETES MELLITUS WITHOUT COMPLICATIONS (5) Respiratory distress Code(s): R06.00 - DYSPNEA, UNSPECIFIED
--- NOTE | 2017-10-10 14:06 | PN ---
Progress Note, Physician History of Present Illness: Pt states that her breathing is better. Pt w/o SOB, CP, palp, abd pain. - Current Medication List Current Medications: Active Medications Acetylcysteine (Mucomyst 20 Oral / Inh Use Only*) 600 mg NEB BID [facility] [place] Last Admin: 10/10/17 11:17 Dose: 600 mg Albuterol Sulfate (Ventolin 0.083% Nebulizer Soln -) 1 amp NEB Q6H PRN PRN Reason: SHORT OF BREATH/WHEEZING Last Admin: 10/10/17 11:18 Dose: 1 amp Amlodipine Besylate (Norvasc -) 5 mg PO DAILY [facility] [place] Last Admin: 10/10/17 09:24 Dose: 5 mg Azithromycin (Zithromax -) 500 mg PO DAILY [facility] [place] Last Admin: 10/10/17 09:24 Dose: 500 mg Budesonide/Formoterol Fumarate (Symbicort 80/4.5mcg -) 2 puff IH BID [facility] [place] Last Admin: 10/10/17 09:25 Dose: 2 puff Bupropion HCl (Wellbutrin Xl -) 150 mg PO DAILY [facility] [place] Last Admin: 10/10/17 09:25 Dose: 150 mg Furosemide (Lasix -) 20 mg PO DAILY [facility] [place] Last Admin: 10/10/17 09:24 Dose: 20 mg Guaifenesin (Diabetic Tussin Dm -) 10 ml PO Q4H [facility] [place] Last Admin: 10/10/17 13:29 Dose: Not Given Heparin Sodium (Porcine) (Heparin -) 5,000 unit SQ BID [facility] [place] Last Admin: 10/10/17 09:24 Dose: 5,000 unit Loratadine (Claritin -) 10 mg PO DAILY [facility] [place] Last Admin: 10/10/17 09:24 Dose: 10 mg Lorazepam (Ativan -) 1 mg PO DAILY PRN PRN Reason: ANXIETY Melatonin (Melatonin) 10 mg PO HS [facility] [place] Last Admin: 10/09/17 22:19 Dose: 10 mg Methylprednisolone Sodium Succinate (Solu-Medrol -) 40 mg IVPUSH BID [facility] [place] Last Admin: 10/10/17 09:24 Dose: 40 mg Montelukast Sodium (Singulair -) 10 mg PO HS [facility] [place] Last Admin: 10/09/17 22:22 Dose: 10 mg Naproxen (Naprosyn -) 500 mg PO BID [facility] [place] Last Admin: 10/10/17 09:25 Dose: Not Given Nystatin (Nystatin Oral Suspension -) 500,000 units PO BID [facility] [place] Last Admin: 10/10/17 09:21 Dose: 500,000 units Ranitidine HCl (Zantac -) 150 mg PO DAILY [facility] [place] Last Admin: 10/10/17 09:24 Dose: 150 mg Senna (Senna -) 2 tab PO HS PRN PRN Reason: CONSTIPATION Last Admin: 10/09/17 22:23 Dose: 2 tab - Objective Vital Signs: Vital Signs Temperature 97.8 F 10/10/17 09:51 Pulse Rate 84 10/10/17 09:51 Respiratory Rate 20 10/10/17 09:51 Blood Pressure 118/81 10/10/17 09:51 O2 Sat by Pulse Oximetry (%) 97 10/10/17 09:00 Constitutional: Yes: No Distress, Calm Cardiovascular: Yes: Regular Rate and Rhythm, S1, S2 Respiratory: Yes: Regular, CTA Bilaterally, Rales (scattered) Gastrointestinal: Yes: Normal Bowel Sounds, Soft. No: Tenderness Edema: No Neurological: Yes: Alert, Oriented Labs: CBC, BMP 10/08/17 07:15 10/08/17 07:15 Problem List - Problems (1) Asthma exacerbation Code(s): J45.901 - UNSPECIFIED ASTHMA WITH (ACUTE) EXACERBATION (2) Acute exacerbation of COPD with asthma Code(s): J44.1 - CHRONIC OBSTRUCTIVE PULMONARY DISEASE W (ACUTE) EXACERBATION; J45.901 - UNSPECIFIED ASTHMA WITH (ACUTE) EXACERBATION (3) CHF (congestive heart failure) Code(s): I50.9 - HEART FAILURE, UNSPECIFIED (4) Leukocytosis Code(s): D72.829 - ELEVATED WHITE BLOOD CELL COUNT, UNSPECIFIED (5) Shoulder pain, left Code(s): M25.512 - PAIN IN LEFT SHOULDER Assessment/Plan IV Steroids- tappered to Q12H starting today. Pulmonary consult appreciated AM labs; to monitor WBC, fever curve DVT prophylaxis PT evaluation Case was d/w pt's nurse.
[2017-10-10] MEDS ORDERED: PT OWN MED DRAWER 7, Y5N ONE ×2 (17:21→19:58)
[2017-10-10] MEDS: MELATONIN 5 MG TABLETS PO SCH (21:05)
[2017-10-10] MEDS: MONTELUKAST NA 10 MG TABLET PO SCH (21:06)
[2017-10-11] MEDS: guaiFENesin/D-M SUGAR-FREE/ACLHOL-FREE 118 ML BOTTLE PO SCH ×6 (06:29→22:23)
[2017-10-11 07:34] LABS: HEMATOCRIT 35.9 % (32.4-45.2); HEMOGLOBIN 11.3 GM/dL (10.7-15.3); MCH 24.2 pg (25.7-33.7); MCHC 31.4 g/dl (32.0-36.0); MEAN CELL VOLUME 77.1 fl (80-96); MEAN PLT VOLUME 7.6 fl (7.5-11.1); PLATELET COUNT 423 K/MM3 (134-434); RBC 4.65 M/mm3 (3.60-5.2); RDW 19.3 % (11.6-15.6); WHITE BLOOD COUNT 26.7 K/mm3 (4.0-10.0)
[2017-10-11 08:11] LABS: ALBUMIN 3.1 g/dl (3.4-5.0); ANION GAP 7 (8-16); BILIRUBIN,TOTAL 0.4 mg/dL (0.2-1.0); BLOOD UREA NITROGEN 26 mg/dL (7-18); CALCIUM 8.3 mg/dL (8.5-10.1); CHLORIDE 102 mmol/L (98-107); CO2 29 mmol/L (21-32); CREATININE 0.7 mg/dL (0.55-1.02); GLUCOSE,RANDOM 144 mg/dL (74-106); POTASSIUM 4.1 mmol/L (3.5-5.1); SGOT/AST 9 U/L (15-37); SGPT/ALT 32 U/L (12-78); SODIUM 138 mmol/L (136-145); TOT PROT 6.6 g/dl (6.4-8.2)
[2017-10-11 08:12] LABS: ALK PHOS 51 U/L (45-117)
[2017-10-11] MEDS ORDERED: PT OWN MED DRAWER 7, Y5N ONE (09:01)
[2017-10-11] MEDS: ACETYLCYSTEINE 20% 200MG/ML 4 ML VIAL *FOR ORAL / INH USE ONLY NEB SCH ×2 (09:29→22:25)
[2017-10-11] MEDS: ALBUTEROL SO4 0.083% IH SOL 2.5 MG/3 ML VIAL.NEB. NEB PRN ×2 (09:29→22:25)
[2017-10-11] MEDS: amLODIPine BESYLATE 5 MG TABLET (FP) PO SCH (09:38)
[2017-10-11] MEDS: NAPROXEN 500 MG TABLET (FP) PO SCH ×2 (09:38→22:24)
[2017-10-11] MEDS: RANITIDINE HCL 150 MG TABLET (FP) PO SCH (09:38)
[2017-10-11] MEDS: AZITHROMYCIN 250 MG TABLET PO SCH (09:38)
[2017-10-11] MEDS: LORATADINE 10 MG TABLET PO SCH (09:38)
[2017-10-11] MEDS: BUDESONIDE/FORMETEROL FUMARATE 80/4.5 mcg INHALER IH SCH ×2 (09:38→22:22)
[2017-10-11] MEDS: FUROSEMIDE 20 MG TABLET (FP) PO SCH (09:38)
[2017-10-11] MEDS: methylPREDNISolone NA SUCC 40 MG/1 ML VIAL IVPUSH SCH ×2 (09:39→22:22)
[2017-10-11] MEDS: HEPARIN NA (PORCINE) 5,000 UNITS/ML 1ML VIAL SQ SCH ×2 (09:39→22:22)
[2017-10-11] MEDS: NYSTATIN 500,000 UNITS/5 ML SUSPENSION PO SCH ×2 (09:39→22:23)
--- NOTE | 2017-10-11 13:19 | PN ---
Progress Note, Physician History of Present Illness: pulmonary alert,nad,-cp,-sob - Current Medication List Current Medications: Active Medications Acetylcysteine (Mucomyst 20 Oral / Inh Use Only*) 600 mg NEB BID [facility] Last Admin: 10/11/17 09:29 Dose: 600 mg Albuterol Sulfate (Ventolin 0.083% Nebulizer Soln -) 1 amp NEB Q6H PRN PRN Reason: SHORT OF BREATH/WHEEZING Last Admin: 10/11/17 09:29 Dose: 1 amp Amlodipine Besylate (Norvasc -) 5 mg PO DAILY [facility] Last Admin: 10/11/17 09:38 Dose: 5 mg Azithromycin (Zithromax -) 500 mg PO DAILY [facility] Last Admin: 10/11/17 09:38 Dose: 500 mg Budesonide/Formoterol Fumarate (Symbicort 80/4.5mcg -) 2 puff IH BID [facility] Last Admin: 10/11/17 09:38 Dose: 2 puff Bupropion HCl (Wellbutrin Xl -) 150 mg PO DAILY [facility] Last Admin: 10/11/17 09:38 Dose: 150 mg Furosemide (Lasix -) 20 mg PO DAILY [facility] Last Admin: 10/11/17 09:38 Dose: 20 mg Guaifenesin (Diabetic Tussin Dm -) 10 ml PO Q4H [facility] Last Admin: 10/11/17 09:39 Dose: Not Given Heparin Sodium (Porcine) (Heparin -) 5,000 unit SQ BID [facility] Last Admin: 10/11/17 09:39 Dose: 5,000 unit Loratadine (Claritin -) 10 mg PO DAILY [facility] Last Admin: 10/11/17 09:38 Dose: 10 mg Melatonin (Melatonin) [address] [facility] Last Admin: 10/10/17 21:05 Dose: 10 mg Methylprednisolone Sodium Succinate (Solu-Medrol -) 40 mg IVPUSH BID [facility] Last Admin: 10/11/17 09:39 Dose: 40 mg Montelukast Sodium (Singulair -) 10 mg PO HS [facility] Last Admin: 10/10/17 21:06 Dose: 10 mg Naproxen (Naprosyn -) 500 mg PO BID [facility] Last Admin: 10/11/17 09:38 Dose: 500 mg Nystatin (Nystatin Oral Suspension -) 500,000 units PO BID [facility] Last Admin: 10/11/17 09:39 Dose: 500,000 units Ranitidine HCl (Zantac -) 150 mg PO DAILY [facility] Last Admin: 10/11/17 09:38 Dose: 150 mg Senna (Senna -) 2 tab PO HS PRN PRN Reason: CONSTIPATION Last Admin: 10/09/17 22:23 Dose: 2 tab - Objective Vital Signs: Vital Signs Temperature 98.7 F 10/11/17 09:00 Pulse Rate 110 H 10/11/17 09:28 Respiratory Rate 20 10/11/17 09:00 Blood Pressure 130/80 10/11/17 09:00 O2 Sat by Pulse Oximetry (%) 97 10/11/17 09:28 Constitutional: Yes: Well Nourished, Calm Eyes: Yes: WNL HENT: Yes: WNL Neck: Yes: WNL Cardiovascular: Yes: Regular Rate and Rhythm, S1, S2 Respiratory: Yes: Wheezes (few wheezes) Gastrointestinal: Yes: Normal Bowel Sounds, Soft Extremities: Yes: WNL Edema: Yes Labs: CBC, BMP 10/11/17 07:10 10/11/17 07:10 Problem List - Problems (1) MGUS (monoclonal gammopathy of unknown significance) Code(s): D47.2 - MONOCLONAL GAMMOPATHY (2) Acute exacerbation of COPD with asthma Code(s): J44.1 - CHRONIC OBSTRUCTIVE PULMONARY DISEASE W (ACUTE) EXACERBATION; J45.901 - UNSPECIFIED ASTHMA WITH (ACUTE) EXACERBATION (3) Moderate persistent chronic asthma with acute exacerbation Code(s): J45.41 - MODERATE PERSISTENT ASTHMA WITH (ACUTE) EXACERBATION (4) Diabetes 1.5, managed as type 2 Code(s): E13.9 - OTHER SPECIFIED DIABETES MELLITUS WITHOUT COMPLICATIONS (5) Respiratory distress Code(s): R06.00 - DYSPNEA, UNSPECIFIED Assessment/Plan IMP ASTHMA/COPD EXACERBATION improving URI DIASTOLIC HF STEROID INDUCED DM MGUS OSAS MILD AHI 5 PLAN O2 INHALED BRONCHODILATORS PREDNISONE AM DIURETICS ABX MONITOR PEAK FLOW DR GRAHAM Problem List - Problems (1) MGUS (monoclonal gammopathy of unknown significance) Code(s): D47.2 - MONOCLONAL GAMMOPATHY (2) Acute exacerbation of COPD with asthma Code(s): J44.1 - CHRONIC OBSTRUCTIVE PULMONARY DISEASE W (ACUTE) EXACERBATION; J45.901 - UNSPECIFIED ASTHMA WITH (ACUTE) EXACERBATION (3) Moderate persistent chronic asthma with acute exacerbation Code(s): J45.41 - MODERATE PERSISTENT ASTHMA WITH (ACUTE) EXACERBATION (4) Diabetes 1.5, managed as type 2 Code(s): E13.9 - OTHER SPECIFIED DIABETES MELLITUS WITHOUT COMPLICATIONS (5) Respiratory distress Code(s): R06.00 - DYSPNEA, UNSPECIFIED
--- NOTE | 2017-10-11 18:56 | PN ---
Progress Note, Physician History of Present Illness: Pt breathing is better. Pt's leg are less swollen. Pt w/o SOB, CP, palp, abd pain. - Current Medication List Current Medications: Active Medications Acetylcysteine (Mucomyst 20 Oral / Inh Use Only*) 600 mg NEB BID [facility] Last Admin: 10/11/17 09:29 Dose: 600 mg Albuterol Sulfate (Ventolin 0.083% Nebulizer Soln -) 1 amp NEB Q6H PRN PRN Reason: SHORT OF BREATH/WHEEZING Last Admin: 10/11/17 09:29 Dose: 1 amp Amlodipine Besylate (Norvasc -) 5 mg PO DAILY [facility] Last Admin: 10/11/17 09:38 Dose: 5 mg Azithromycin (Zithromax -) 500 mg PO DAILY [facility] Last Admin: 10/11/17 09:38 Dose: 500 mg Budesonide/Formoterol Fumarate (Symbicort 80/4.5mcg -) 2 puff IH BID [facility] Last Admin: 10/11/17 09:38 Dose: 2 puff Bupropion HCl (Wellbutrin Xl -) 150 mg PO DAILY [facility] Last Admin: 10/11/17 09:38 Dose: 150 mg Furosemide (Lasix -) 20 mg PO DAILY [facility] Last Admin: 10/11/17 09:38 Dose: 20 mg Guaifenesin (Diabetic Tussin Dm -) 10 ml PO Q4H [facility] Last Admin: 10/11/17 17:01 Dose: Not Given Heparin Sodium (Porcine) (Heparin -) 5,000 unit SQ BID [facility] Last Admin: 10/11/17 09:39 Dose: 5,000 unit Loratadine (Claritin -) 10 mg PO DAILY [facility] Last Admin: 10/11/17 09:38 Dose: 10 mg Melatonin (Melatonin) 10 mg PO HS [facility] Last Admin: 10/10/17 21:05 Dose: 10 mg Methylprednisolone Sodium Succinate (Solu-Medrol -) 40 mg IVPUSH BID [facility] Stop: 10/11/17 23:00 Last Admin: 10/11/17 09:39 Dose: 40 mg Montelukast Sodium (Singulair -) 10 mg PO HS [facility] Last Admin: 10/10/17 21:06 Dose: 10 mg Naproxen (Naprosyn -) 500 mg PO BID [facility] Last Admin: 10/11/17 09:38 Dose: 500 mg Nystatin (Nystatin Oral Suspension -) 500,000 units PO BID [facility] Last Admin: 10/11/17 09:39 Dose: 500,000 units Prednisone (Deltasone -) 60 mg PO DAILY [facility] Ranitidine HCl (Zantac -) 150 mg PO DAILY [facility] Last Admin: 10/11/17 09:38 Dose: 150 mg Senna (Senna -) 2 tab PO HS PRN PRN Reason: CONSTIPATION Last Admin: 10/09/17 22:23 Dose: 2 tab - Objective Vital Signs: Vital Signs Temperature 97.8 F 10/11/17 14:50 Pulse Rate 96 H 10/11/17 14:50 Respiratory Rate 20 10/11/17 14:50 Blood Pressure 124/80 10/11/17 14:50 O2 Sat by Pulse Oximetry (%) 97 10/11/17 09:28 Constitutional: Yes: No Distress, Calm Cardiovascular: Yes: Regular Rate and Rhythm, S1, S2 Respiratory: Yes: Regular, Rales (scattered) Gastrointestinal: Yes: Normal Bowel Sounds, Soft. No: Tenderness Edema: No (pretibial) Neurological: Yes: Alert, Oriented Labs: CBC, BMP 10/11/17 07:10 10/11/17 07:10 Problem List - Problems (1) Asthma exacerbation Code(s): J45.901 - UNSPECIFIED ASTHMA WITH (ACUTE) EXACERBATION (2) Acute exacerbation of COPD with asthma Code(s): J44.1 - CHRONIC OBSTRUCTIVE PULMONARY DISEASE W (ACUTE) EXACERBATION; J45.901 - UNSPECIFIED ASTHMA WITH (ACUTE) EXACERBATION (3) CHF (congestive heart failure) Code(s): I50.9 - HEART FAILURE, UNSPECIFIED (4) Leukocytosis Code(s): D72.829 - ELEVATED WHITE BLOOD CELL COUNT, UNSPECIFIED (5) Shoulder pain, left Code(s): M25.512 - PAIN IN LEFT SHOULDER Assessment/Plan IV Steroids, to be switched to PO starting AM Pulmonary consult and f/u appreciated. DVT prophylaxis PT evaluation Case was d/w pt's nurse. DC planning
[2017-10-11] MEDS: SENNOSIDES 8.6MG TABLET (FP) PO PRN (22:22)
[2017-10-11] MEDS: MONTELUKAST NA 10 MG TABLET PO SCH (22:23)
[2017-10-11] MEDS: MELATONIN 5 MG TABLETS PO SCH (22:23)
[2017-10-12] MEDS: guaiFENesin/D-M SUGAR-FREE/ACLHOL-FREE 118 ML BOTTLE PO SCH ×3 (02:04→11:53)
[2017-10-12 09:10] VITALS: BP 107/75; TEMP 97.9
[2017-10-12 09:32] VITALS: PULSE 95
[2017-10-12] MEDS: ACETYLCYSTEINE 20% 200MG/ML 4 ML VIAL *FOR ORAL / INH USE ONLY NEB SCH (09:32)
[2017-10-12] MEDS: ALBUTEROL SO4 0.083% IH SOL 2.5 MG/3 ML VIAL.NEB. NEB PRN (09:32)
[2017-10-12] MEDS ORDERED: PT OWN MED DRAWER 7, Y5N ONE (09:46)
[2017-10-12] MEDS: FUROSEMIDE 20 MG TABLET (FP) PO SCH (09:53)
[2017-10-12] MEDS: NYSTATIN 500,000 UNITS/5 ML SUSPENSION PO SCH (09:53)
[2017-10-12] MEDS: BUDESONIDE/FORMETEROL FUMARATE 80/4.5 mcg INHALER IH SCH (09:53)
[2017-10-12] MEDS: AZITHROMYCIN 250 MG TABLET PO SCH (09:53)
[2017-10-12] MEDS: amLODIPine BESYLATE 5 MG TABLET (FP) PO SCH (09:53)
[2017-10-12] MEDS: LORATADINE 10 MG TABLET PO SCH (09:53)
[2017-10-12] MEDS: RANITIDINE HCL 150 MG TABLET (FP) PO SCH (09:53)
[2017-10-12] MEDS: HEPARIN NA (PORCINE) 5,000 UNITS/ML 1ML VIAL SQ SCH (09:53)
[2017-10-12] MEDS: NAPROXEN 500 MG TABLET (FP) PO SCH (09:58)
[2017-10-12] MEDS ORDERED: predniSONE 20 MG TABLET (UD) PO SCH (10:00)
[2017-10-12] MEDS ORDERED: ACETYLCYSTEINE 20% 200MG/ML 4 ML VIAL *FOR ORAL / INH USE ONLY NEB SCH (10:24)
--- NOTE | 2017-10-12 10:53 | PN ---
Progress Note, Physician History of Present Illness: Pt breathing OK, even when walking; she feels good and wants to go home. Pt's leg are less swollen, wants to continue on Lasix. Pt w/o SOB, CP, palp, abd pain. - Current Medication List Current Medications: Active Medications Acetylcysteine (Mucomyst 20 Oral / Inh Use Only*) 600 mg NEB RBID [facility] Albuterol Sulfate (Ventolin 0.083% Nebulizer Soln -) 1 amp NEB Q6H PRN PRN Reason: SHORT OF BREATH/WHEEZING Last Admin: 10/12/17 09:32 Dose: 1 amp Amlodipine Besylate (Norvasc -) 5 mg PO DAILY [facility] Last Admin: 10/12/17 09:53 Dose: 5 mg Azithromycin (Zithromax -) 500 mg PO DAILY [facility] Last Admin: 10/12/17 09:53 Dose: 500 mg Budesonide/Formoterol Fumarate (Symbicort 80/4.5mcg -) 2 puff IH BID [facility] Last Admin: 10/12/17 09:53 Dose: 2 puff Bupropion HCl (Wellbutrin Xl -) 150 mg PO DAILY [facility] Last Admin: 10/12/17 09:53 Dose: 150 mg Furosemide (Lasix -) 20 mg PO DAILY [facility] Last Admin: 10/12/17 09:53 Dose: 20 mg Guaifenesin (Diabetic Tussin Dm -) 10 ml PO Q4H [facility] Last Admin: 10/12/17 06:26 Dose: Not Given Heparin Sodium (Porcine) (Heparin -) 5,000 unit SQ BID [facility] Last Admin: 10/12/17 09:53 Dose: 5,000 unit Loratadine (Claritin -) 10 mg PO DAILY [facility] Last Admin: 10/12/17 09:53 Dose: 10 mg Melatonin (Melatonin) 10 mg PO HS [facility] Last Admin: 10/11/17 22:23 Dose: 10 mg Montelukast Sodium (Singulair -) 10 mg PO HS [facility] Last Admin: 10/11/17 22:23 Dose: 10 mg Naproxen (Naprosyn -) 500 mg PO BID [facility] Last Admin: 10/12/17 09:58 Dose: 500 mg Nystatin (Nystatin Oral Suspension -) 500,000 units PO BID [facility] Last Admin: 10/12/17 09:53 Dose: 500,000 units Prednisone (Deltasone -) 60 mg PO DAILY [facility] Last Admin: 10/12/17 09:53 Dose: 60 mg Ranitidine HCl (Zantac -) 150 mg PO DAILY [facility] Last Admin: 10/12/17 09:53 Dose: 150 mg Senna (Senna -) 2 tab PO HS PRN PRN Reason: CONSTIPATION Last Admin: 10/11/17 22:22 Dose: 2 tab - Objective Vital Signs: Vital Signs Temperature 97.9 F 10/12/17 09:07 Pulse Rate 95 H 10/12/17 09:31 Respiratory Rate 18 10/12/17 09:07 Blood Pressure 107/75 10/12/17 09:07 O2 Sat by Pulse Oximetry (%) 96 10/12/17 09:31 Constitutional: Yes: No Distress, Calm Cardiovascular: Yes: Regular Rate and Rhythm, S1, S2 Respiratory: Yes: Regular, Wheezes (occasinally, scattered, with deep inpiration ) Gastrointestinal: Yes: Normal Bowel Sounds, Soft. No: Tenderness Extremities: Yes: Other (feet edema: decreased) Edema: No (pretibial) Neurological: Yes: Alert, Oriented Labs: CBC, BMP 10/11/17 07:10 10/11/17 07:10 Problem List - Problems (1) Asthma exacerbation Code(s): J45.901 - UNSPECIFIED ASTHMA WITH (ACUTE) EXACERBATION (2) Acute exacerbation of COPD with asthma Code(s): J44.1 - CHRONIC OBSTRUCTIVE PULMONARY DISEASE W (ACUTE) EXACERBATION; J45.901 - UNSPECIFIED ASTHMA WITH (ACUTE) EXACERBATION (3) CHF (congestive heart failure) Code(s): I50.9 - HEART FAILURE, UNSPECIFIED Qualifiers: Congestive heart failure type: diastolic Congestive heart failure chronicity: chronic Qualified Code(s): I50.32 - Chronic diastolic (congestive ) heart failure (4) Leukocytosis Code(s): D72.829 - ELEVATED WHITE BLOOD CELL COUNT, UNSPECIFIED (5) Shoulder pain, left Code(s): M25.512 - PAIN IN LEFT SHOULDER (6) Edema of both feet Code(s): R60.0 - LOCALIZED EDEMA Assessment/Plan switched to PO starting AM Pulmonary consult and f/u appreciated. DVT prophylaxis PT evaluation Case was d/w pt's nurse. Pt to go home today. See DC summary.
--- NOTE | 2017-10-12 11:00 | DS ---
Physical Examination Vital Signs: Vital Signs Temperature 97.9 F 10/12/17 09:07 Pulse Rate 95 H 10/12/17 09:31 Respiratory Rate 18 10/12/17 09:07 Blood Pressure 107/75 10/12/17 09:07 O2 Sat by Pulse Oximetry (%) 96 10/12/17 09:31 Findings/Remarks: Pt breathing OK, even when walking; she feels good and wants to go home. Pt's leg are less swollen, wants to continue on Lasix. Pt w/o SOB, CP, palp, abd pain. Constitutional: Yes: No Distress, Calm Cardiovascular: Yes: Regular Rate and Rhythm, S1, S2 Respiratory: Yes: Regular, Rales (scatterd wheezing with deep inspiration) Gastrointestinal: Yes: Normal Bowel Sounds, Soft Extremities: Yes: Other (Feet Edema: improved) Edema: No (pretibial) Neurological: Yes: Alert, Oriented Labs: CBC, BMP 10/11/17 07:10 10/11/17 07:10 Discharge Summary Reason For Visit: MODERATE PERSISTANT CHRONIC ASTHMA Current Active Problems Acute exacerbation of COPD with asthma (Acute) Edema of both feet (Acute) MGUS (monoclonal gammopathy of unknown significance) (Acute) Moderate persistent chronic asthma with acute exacerbation (Acute) Hospital Course: Pt came to ER c/o SOB, found to have Acute asthma exacerbation, Acute COPD exacerbation; pt was admitted , started on IV steroids; pt was seen by Pulmonary (Dr. Mccoy/ [place]); pt improved slowly and steroids were tappered. Pt had feet edema, seen by Cardio (Dr. Leal/ [place]), started on low dose Lasix with improvement of edema. Pt to go home today; steroid joseph was reviewed with patient, all questions were answered. Condition: Stable - Instructions Referrals: Amarjit Burrell MD [Primary Care Provider] - (in 1 week; call for appointment. ) Adalid James MD [Staff Physician] - (within a week; call for appointment.) Yuly Stockton MD [Staff Physician] - (im 1-2 weeks; call for appointment.) Disposition: HOME - Home Medications Comprehensive Discharge Medication List: Ambulatory Orders this list might NOT be accurate. Albuterol Sulfate Inhaler - [Ventolin HFA Inhaler -] 2 puff IH Q4H PRN 09/11/15 BUPROPion HCL "SR" [Wellbutrin Sr -] 100 mg PO DAILY 02/14/17 Montelukast Na [Singulair -] 10 mg PO HS 02/14/17 Albuterol 0.083% Nebulizer [facility] [Ventolin 0.083% Nebulizer Soln -] 1 amp NEB Q4H PRN #0 amp 03/03/17 Albuterol 2.5/Ipratropium 0.5 [Duoneb -] 1 amp NEB TIDR amp 03/03/17 Budesonide/Formeterol Fumarate [SYMBICORT 80/4.5mcg -] 2 inh PO BID 08/23/17 Cetirizine HCl [Zyrtec -] 10 mg PO DAILY 08/23/17 Cyclosporine [Restasis] 1 each OU BID 08/23/17 Famotidine [Pepcid] 40 mg PO DAILY 08/23/17 Lorazepam 1 mg PO DAILY PRN 08/23/17 Acetylcysteine 10% [Mucomyst] 600 mg GT BID #360 ml 08/31/17 Amlodipine Besylate [Norvasc -] 5 mg PO DAILY #30 tablet 08/31/17 Melatonin 10 mg PO HS #60 tab 08/31/17 Prednisone 40 mg PO DAILY 09/21/17 Naproxen 500 mg PO BID 10/05/17 Nystatin 100,000 unit PO BID 10/05/17
--- NOTE | 2017-10-12 12:41 | PN ---
Progress Note (short form) - Note Progress Note: s: sob improving, no cp palps dizzy; le edema better o: Current Medications Acetylcysteine (Mucomyst 20 Oral / Inh Use Only*) 600 mg NEB RBID [facility] Albuterol Sulfate (Ventolin 0.083% Nebulizer Soln -) 1 amp NEB Q6H PRN PRN Reason: SHORT OF BREATH/WHEEZING Last Admin: 10/12/17 09:32 Dose: 1 amp Amlodipine Besylate (Norvasc -) 5 mg PO DAILY [facility] Last Admin: 10/12/17 09:53 Dose: 5 mg Azithromycin (Zithromax -) 500 mg PO DAILY [facility] Last Admin: 10/12/17 09:53 Dose: 500 mg Budesonide/Formoterol Fumarate (Symbicort 80/4.5mcg -) 2 puff IH BID [facility] Last Admin: 10/12/17 09:53 Dose: 2 puff Bupropion HCl (Wellbutrin Xl -) 150 mg PO DAILY [facility] Last Admin: 10/12/17 09:53 Dose: 150 mg Furosemide (Lasix -) 20 mg PO DAILY [facility] Last Admin: 10/12/17 09:53 Dose: 20 mg Guaifenesin (Diabetic Tussin Dm -) 10 ml PO Q4H [facility] Last Admin: 10/12/17 11:53 Dose: Not Given Heparin Sodium (Porcine) (Heparin -) 5,000 unit SQ BID [facility] Last Admin: 10/12/17 09:53 Dose: 5,000 unit Loratadine (Claritin -) 10 mg PO DAILY [facility] Last Admin: 10/12/17 09:53 Dose: 10 mg Melatonin (Melatonin) 10 mg PO HS [facility] Last Admin: 10/11/17 22:23 Dose: 10 mg Montelukast Sodium (Singulair -) 10 mg PO HS [facility] Last Admin: 10/11/17 22:23 Dose: 10 mg Naproxen (Naprosyn -) 500 mg PO BID [facility] Last Admin: 10/12/17 09:58 Dose: 500 mg Nystatin (Nystatin Oral Suspension -) 500,000 units PO BID [facility] Last Admin: 10/12/17 09:53 Dose: 500,000 units Prednisone (Deltasone -) 60 mg PO DAILY [facility] Last Admin: 10/12/17 09:53 Dose: 60 mg Ranitidine HCl (Zantac -) 150 mg PO DAILY [facility] Last Admin: 10/12/17 09:53 Dose: 150 mg Senna (Senna -) 2 tab PO HS PRN PRN Reason: CONSTIPATION Last Admin: 10/11/17 22:22 Dose: 2 tab Vital Signs - 24 hr 10/11/17 10/11/17 10/11/17 14:50 21:00 23:00 Temperature 97.8 F Pulse Rate 96 H 88 Respiratory 20 20 18 Rate Blood Pressure 124/80 125/78 O2 Sat by Pulse 96 Oximetry (%) 10/12/17 10/12/17 10/12/17 05:14 09:00 09:07 Temperature 98.6 F 97.9 F Pulse Rate 87 98 H Respiratory 18 18 18 Rate Blood Pressure 136/73 107/75 O2 Sat by Pulse 95 Oximetry (%) 10/12/17 09:31 Temperature Pulse Rate 95 H Respiratory Rate Blood Pressure O2 Sat by Pulse 96 Oximetry (%) Intake & Output 10/10/17 10/11/17 10/12/17 10/13/17 07:59 07:59 07:59 07:59 Intake Total 768 398 2922 Balance [phone] Constitutional: Yes: Well Nourished, No Distress Eyes: No: Sclera Icterus Respiratory: Yes: Wheezes. No: Accessory Muscle Use, Rales Gastrointestinal: Yes: Normal Bowel Sounds. No: Distention, Hepatomegaly, Palpable Mass, Tenderness Cardiovascular: Yes: Regular Rate and Rhythm JVD: No Heart Sounds: Yes: S1, S2. No: Gallop Murmur: No: Systolic Murmur, Diastolic Murmur Extremities: No: Cold, Cyanosis Edema: trace pedal edema bl Integumentary: No: Jaundice Neurological: Yes: Alert, Oriented (x3) Psychiatric: No: Agitated no CBC, BMP today Echo 02/2017: tds. nl lv/rv. valves not well seen but no sig ab. dobutamine stress 02/2017: suboptimal, target HR not achieved. occ pvc's seen. diaphragmatic attenuation, no ischemica. EF 73% cta chest: no pe, no chf ecg 10/05/17: sr, nl intervals, no ischemic changes Assessment/Plan 62yo with h/o dchf, hld, COPD, chronic hypoxic respiratory failure on home O2, longtime prior cigs, GERD, osteoporosis, Essie's thyroiditis, MGUS, PTX s/p vats here with sob. sob, copd: -no signs of acs or pulm edema -current sxs seem to be from copd, cont tx per pmd/pulm HTN: -stable off meds HPL: -cont home statin chronic diastolic chf, le venous insuff: -no signs pulm edema or acute chf -ct chest w/o chf -bnp low -started lasix 20 po qd here for le edema
== END 2017-10-12 13:35 | disposition home or self-care (01) | DRG 191 ==
LOC: JER 11:06 → JERBED 13:18 → J5S 18:14
PROVIDERS: ADMIT Specialist; ATTEND Specialist
DX: J44.1 Chronic obstructive pulmonary disease with (acute) exacerbation (principal); J45.41 Moderate persistent asthma with (acute) exacerbation; I50.32 Chronic diastolic (congestive) heart failure; J96.11 Chronic respiratory failure with hypoxia; K21.9 Gastro-esophageal reflux disease without esophagitis; J06.9 Acute upper respiratory infection, unspecified; D47.2 Monoclonal gammopathy; E11.42 Type 2 diabetes mellitus with diabetic polyneuropathy; E78.00 Pure hypercholesterolemia, unspecified; E03.9 Hypothyroidism, unspecified; D72.829 Elevated white blood cell count, unspecified; M81.8 Other osteoporosis without current pathological fracture; I87.2 Venous insufficiency (chronic) (peripheral); M25.512 Pain in left shoulder; R60.9 Edema, unspecified; E06.3 Autoimmune thyroiditis; G47.33 Obstructive sleep apnea (adult) (pediatric); Z87.891 Personal history of nicotine dependence; Z79.52 Long term (current) use of systemic steroids; Z99.81 Dependence on supplemental oxygen
CPT/HCPCS: 36415; 71046-TC; 71275-TC; 80048; 80053; 81003; 81015; 82550; 83880; 84484; 85025; 85027; 87070; 87077; 87086; 87205; 93005; 93010; 93306-TC; 94010; 94150; 94640; 99284-25; J1644

== ENCOUNTER 2017-10-25 12:11 | Inpatient (IN) | payer OTHER ==
[2017-10-25 12:16] VITALS: BMI 32.3
[2017-10-25] MEDS ORDERED: ALBUTEROL SO4 2.5/IPRATROPIUM 0.5 INH SOL 3 ML VIAL.NEB. NEB ONE ×4 (12:17→23:42)
[2017-10-25] MEDS ORDERED: methylPREDNISolone NA SUCC 125 MG/2 ML VIAL IVPB ONE (15:12)
[2017-10-25] MEDS ORDERED: MAGNESIUM SULF 50% (8.12 MEQ/2 ML-1 GM VIAL) IVPB ONE (15:12)
--- NOTE | 2017-10-25 15:22 | PDOC ---
History of Present Illness - History of Present Illness Initial Comments: 10/25/17 15:48 The patient is a 62 year old female with a significant PMH of left lung collapse (s/p chest tubes, asthma/COPD (steroid dependent, uses O2 prn), former smoker, GERD, osteoporosis, Hashimotos thyroiditis, and MGUS who was sent to the emergency department by Dr. Stockton for further evaluation of persistent productive cough and wheezing that began on October 21. The patient reports she was recently discharged for an upper respiratory infection. The patient states she saw Dr. James with complaints of greenish productive cough and wheezing that began on 10/21/17 and was started on azithromycin and had her prednisone increased from 40 to 60 mg. The patient used her nebulizer and home O2 with no relief of symptoms. The patient denies chest pain, headache and dizziness. Denies fever, chills, nausea, vomit, diarrhea and constipation. Denies dysuria, frequency, urgency and hematuria. Allergies: NKA Past surgical history: None reported Social history: Former smoker. No reported alcohol or drug use. PCP: Dr. 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) GI Disorders: No Disorders: No HTN: Yes Hypercholesterolemia: Yes Liver Disease: No Seizures: No Thyroid Disease: No - Surgical History Abdominal Surgery: No Appendectomy: No Cardiac Surgery: No Cholecystectomy: No Lung Surgery: No Neurologic Surgery: No Orthopedic Surgery: Yes (numerous foot surgeries, right rotator cuff) - Immunization History Immunization Up to Date: No - Suicide/Smoking/Psychosocial Hx Smoking History: Former smoker Have you smoked in the past 12 months: No Number of Cigarettes Smoked Daily: 1 If you are a former smoker, when did you quit?: 02/17 Information on smoking cessation initiated: No 'Breaking Loose' booklet given: 02/27/16 Hx Alcohol Use: No Drug/Substance Use Hx: No Substance Use Type: None Hx Substance Use Treatment: No <Benjamin Katz - Last Filed: 10/25/17 17:44> - Past Medical History Allergies/Adverse Reactions: Allergies Allergy/AdvReac Type Severity Reaction Status Date / Time Penicillins Allergy Intermediate Rash Verified 10/25/17 12:12 fluoroquinolones Allergy Severe Difficulty Uncoded 10/25/17 12:12 Breathing Home Medications: Ambulatory Orders Albuterol Sulfate Inhaler - [Ventolin HFA Inhaler -] 2 puff IH Q4H PRN 09/11/15 BUPROPion HCL "SR" [Wellbutrin Sr -] 100 mg PO DAILY 02/14/17 Montelukast Na [Singulair -] 10 mg PO HS 02/14/17 Albuterol 0.083% Nebulizer Yadira [Ventolin 0.083% Nebulizer Soln -] 1 amp NEB Q4H PRN #0 amp 03/03/17 Budesonide/Formeterol Fumarate [SYMBICORT 80/4.5mcg -] 2 inh PO BID 08/23/17 Cetirizine HCl [Zyrtec -] 10 mg PO DAILY 08/23/17 Cyclosporine [Restasis] 1 each OU BID 08/23/17 Famotidine [Pepcid] 40 mg PO DAILY 08/23/17 Lorazepam 1 mg PO DAILY PRN 08/23/17 Acetylcysteine 10% [Mucomyst] 600 mg GT BID #360 ml 08/31/17 Amlodipine Besylate [Norvasc -] 5 mg PO DAILY #30 tablet 08/31/17 Melatonin 10 mg PO HS #60 tab 08/31/17 Naproxen 500 mg PO BID 10/05/17 Nystatin 100,000 unit PO BID 10/05/17 Acetylcysteine Po/INH 20% [Mucomyst 20 Oral / INH Use Only*] 600 mg NEB BID #60 vial 10/12/17 Albuterol 0.083% Nebulizer Yadira [Ventolin 0.083% Nebulizer Soln -] 1 amp NEB Q6H PRN amp 10/12/17 Furosemide [Lasix -] 20 mg PO DAILY #90 tablet 10/12/17 Guaifenesin/D-Methorphan Hb [Diabetic Tussin Dm -] 10 ml PO Q4H #200 ml Prednisone [Deltasone -] See Taper PO DAILY 15 Days #67 tablet 10/12/17 Review of Systems - Review of Systems Able to Perform ROS?: Yes Comments:: 10/25/17 15:26 GENERAL/CONSTITUTIONAL: No fever or chills. No weakness. HEAD, EYES, EARS, NOSE AND THROAT: No change in vision. No ear pain or discharge. No sore throat. CARDIOVASCULAR: No chest pain or shortness of breath. RESPIRATORY: (+) Productive cough. (+) Wheezing. No hemoptysis. GASTROINTESTINAL: No nausea, vomiting, diarrhea or constipation. GENITOURINARY: No dysuria, frequency, or change in urination. MUSCULOSKELETAL: No joint or muscle swelling or pain. No neck or back pain. SKIN: No rash NEUROLOGIC: No headache, vertigo, loss of consciousness, or change in strength/ sensation. ENDOCRINE: No increased thirst. No abnormal weight change. HEMATOLOGIC/LYMPHATIC: No anemia, easy bleeding, or history of blood clots. ALLERGIC/IMMUNOLOGIC: No hives or skin allergy. <Renetta Espinoza - Last Filed: 10/25/17 15:54> *Physical Exam - Vital Signs Last Vital Signs Temp Pulse Resp BP Pulse Ox 98.4 F 100 H 20 145/94 96 10/25/17 12:13 10/25/17 12:13 10/25/17 12:13 10/25/17 12:13 10/25/17 12:13 - Physical Exam Comments: 10/25/17 15:25 GENERAL: Awake, alert, and fully oriented, in no acute distress HEAD: No signs of trauma EYES: PERRLA, EOMI, sclera anicteric, conjunctiva clear ENT: Auricles normal inspection, hearing grossly normal, nares patent, oropharynx clear without exudates. Moist mucosa NECK: Normal ROM, supple, no lymphadenopathy, JVD, or masses LUNGS: (+) Diffuse expiratory wheezing. No crackles. HEART: Regular rate and rhythm, normal S1 and S2, no murmurs, rubs or gallops ABDOMEN: Soft, nontender, normoactive bowel sounds. No guarding, no rebound. No masses EXTREMITIES: Normal range of motion, no edema. No clubbing or cyanosis. No cords, erythema, or tenderness NEUROLOGICAL: Cranial nerves II through XII grossly intact. Normal speech, normal gait SKIN: Warm, Dry, normal turgor, no rashes or lesions noted. <Renetta Espinoza - Last Filed: 10/25/17 15:54> - Vital Signs Last Vital Signs Temp Pulse Resp BP Pulse Ox 98.4 F 100 H 20 145/94 96 10/25/17 12:13 10/25/17 12:13 10/25/17 12:13 10/25/17 12:13 10/25/17 12:13 <Benjamin Katz - Last Filed: 10/25/17 17:44> Heart Score/ECG Review #1 ECG reviewed & interpreted by me at: 17:25 10/25/17 17:44 NSR 110, no std/ilan, normal axis, normal intervals, QTC 454 msec <Benjamin Katz - Last Filed: 10/25/17 17:44> ED Treatment Course - Medications Given in the ED: ED Medications Discontinued Medications Generic Name Dose Route Start Last Admin Trade Name Freq PRN Reason Stop Dose Admin Albuterol/Ipratropium 1 amp 10/25/17 12:17 10/25/17 12:18 Duoneb - NEB 10/25/17 12:18 1 amp NOW ONE Administration <Renetta Espinoza - Last Filed: 10/25/17 15:54> - LABORATORY CBC & Chemistry Diagram: 10/25/17 17:18 10/25/17 17:18 - RADIOLOGY Radiology Studies Ordered: Category Date Time Status CHEST X-RAY PORTABLE* [RAD] Stat Radiology 10/25/17 14:59 Ordered - Medications Given in the ED: ED Medications Discontinued Medications Generic Name Dose Route Start Last Admin Trade Name Freq PRN Reason Stop Dose Admin Albuterol/Ipratropium 1 amp 10/25/17 12:17 10/25/17 12:18 Duoneb - NEB 10/25/17 12:18 1 amp NOW ONE Administration <Benjamin Katz - Last Filed: 10/25/17 17:44> Medical Decision Making - Medical Decision Making 10/25/17 15:22 A portion of this note was documented by scribe services under my direction. I have reviewed the details of the note, within reason, and agree with the documentation with the following case summary and management plan written by me. Patient treated in the ED. Nursing notes are reviewed and incorporated into the medical decision-making. Vital signs reviewed. Peripheral IV access obtained by the nurse, laboratory studies are drawn and sent, reviewed and interpreted by myself. Vital Signs Temp Pulse Resp BP Pulse Ox 98.4 F 100 H 20 145/94 96 10/25/17 12:13 10/25/17 12:13 10/25/17 12:13 10/25/17 12:13 10/25/17 12:13 62 year old female with past medical history of collapsed lung, COPD, asthma, MGUS, GERD, congestive heart failure presents with persistent shortness of breath and wheezing. The patient reported that she was recently discharge for an upper a store infection earlier this month. On October 21, patient started developing wheezing and greenish productive cough. She was initiated on empiric azithromycin and her prednisone was increased to 60 mg. The patient continues to wheeze and have greenish cough. No fevers, chills or chest pain. Pt went to visit Dr. Jessica Wells who sent patient to the ED. Likely COPD exacerbation. Failed outpatient therapy. R/o CHF, PNA. Labs, chest xray. Duonebs, steroids, likely needs antibiotics. Admit 10/25/17 15:[address] Rasheed Mccoy. Dr. Mccoy is seeing the patient in the ED. 10/25/17 17:[address] Monreal for ID consultation. Dr. Monreal recommended vanc and aztreonam (pt has rash allergy to penicillins). Vanc and aztreonam ordered. Case discussed with DR. Amarjit Burrell. Accepts for admission for COPD and PNA Case discussed in detail with admitting physician including history, physical exam and ancillary studies. Admitting physician has assumed care for the patient, will follow all pending diagnostics and will complete the evaluation and treatment. <Benjamin Katz - Last Filed: 10/25/17 17:44> *DC/Admit/Observation/Transfer - Attestations Scribe Attestion: 10/25/17 15:28 Documentation prepared by Renetta Espinoza, acting as medical assistant dermatology for Benjamin Katz MD. <Renetta Espinoza - Last Filed: 10/25/17 15:54> - Discharge Dispostion Admit: Yes <GiannaBenjamin - Last Filed: 10/25/17 17:44> Diagnosis at time of Disposition: Pneumonia Qualifiers: Pneumonia type: due to unspecified organism Laterality: unspecified laterality Lung location: unspecified part of lung Qualified Code(s): J18.9 - Pneumonia, unspecified organism COPD (chronic obstructive pulmonary disease) Qualifiers: COPD type: unspecified COPD Qualified Code(s): J44.9 - Chronic obstructive pulmonary disease, unspecified - Discharge Dispostion Condition at time of disposition: Stable - Referrals Referrals: Amarjit Burrell MD [Primary Care Provider] - - Patient Instructions - Post Discharge Activity
--- NOTE | 2017-10-25 15:58 | PN ---
Progress Note (short form) - Note Progress Note: PULMONARY CONSULTATION DICTATED 10/25/17 IMP ACUTE ON CHRONIC HYPOXEMIC RESPIRATORY FAILURE CHRONIC PERSISTENT ASTHMA WITH ACUTE EXACERBATION DIASTOLIC HF MGUS PERIPHERAL NEUROPATHY PLAN IV STEROIDS INHALED BRONCHODILATORS O2 THEOPHYLLINE MONITOR PEAK FLOW ABX F/U CHEST X-RAY Problem List - Problems (1) Acute on chronic respiratory failure with hypoxia Code(s): J96.21 - ACUTE AND CHRONIC RESPIRATORY FAILURE WITH HYPOXIA (2) Acute exacerbation of COPD with asthma Code(s): J44.1 - CHRONIC OBSTRUCTIVE PULMONARY DISEASE W (ACUTE) EXACERBATION; J45.901 - UNSPECIFIED ASTHMA WITH (ACUTE) EXACERBATION (3) Asthma exacerbation Code(s): J45.901 - UNSPECIFIED ASTHMA WITH (ACUTE) EXACERBATION (4) CHF (congestive heart failure) Code(s): I50.9 - HEART FAILURE, UNSPECIFIED Qualifiers: (5) Diabetes 1.5, managed as type 2 Code(s): E13.9 - OTHER SPECIFIED DIABETES MELLITUS WITHOUT COMPLICATIONS (6) Edema of both feet Code(s): R60.0 - LOCALIZED EDEMA (7) MGUS (monoclonal gammopathy of unknown significance) Code(s): D47.2 - MONOCLONAL GAMMOPATHY (8) Moderate persistent chronic asthma with acute exacerbation Code(s): J45.41 - MODERATE PERSISTENT ASTHMA WITH (ACUTE) EXACERBATION (9) Respiratory distress Code(s): R06.00 - DYSPNEA, UNSPECIFIED
[2017-10-25] MEDS ORDERED: AZTREONAM 2 GM in DEXTROSE 5%-WATER - 50 ML IVPB ONE (16:38)
[2017-10-25] MEDS ORDERED: VANCOMYCIN 1,000 MG in DEXTROSE 5%-WATER - 250 ML IVPB ONE (16:40)
[2017-10-25] MEDS ORDERED: methylPREDNISolone NA SUCC 125 MG/2 ML VIAL ONE (17:25)
[2017-10-25] MEDS ORDERED: MAGNESIUM SULF 50% (8.12 MEQ/2 ML-1 GM VIAL) ONE (17:25)
[2017-10-25] MEDS ORDERED: VANCOMYCIN 1 GRAM (PRE-DOCKED) 1,000 MG/250 ML BAG IVPB ONE (17:25)
[2017-10-25 17:34] LABS: BASO % 0.6 % (0-2.0); HEMATOCRIT 34.8 % (32.4-45.2); HEMOGLOBIN 10.9 GM/dL (10.7-15.3); LYMPH % 7.9 % (8-40); MCH 24.5 pg (25.7-33.7); MCHC 31.3 g/dl (32.0-36.0); MEAN CELL VOLUME 78.1 fl (80-96); MEAN PLT VOLUME 7.7 fl (7.5-11.1); MONO % 2.9 % (3.8-10.2); NEUT % 88.6 % (42.8-82.8); PLATELET COUNT 327 K/MM3 (134-434); RBC 4.45 M/mm3 (3.60-5.2); RDW 19.6 % (11.6-15.6); WHITE BLOOD COUNT 12.7 K/mm3 (4.0-10.0)
[2017-10-25 17:36] LABS: VENOUS PC02 35.8 mmHg (38-52); VENOUS PH 7.42 (7.32-7.42); VENOUS PO2 50.3 mmHg (28-48)
--- NOTE | 2017-10-25 17:40 | CONS ---
PULMONARY CONSULTATION DATE OF CONSULTATION: 10/25/2017 REFERRING PHYSICIAN: Dr. Burrell HISTORY OF PRESENT ILLNESS: The patient is a 62-year-old female known to me from previous hospitalization with past medical history of chronic persistent asthma on chronic steroids and O2, peripheral neuropathy, diastolic heart failure, GERD, MGUS, hypothyroidism, history of 1/2 pack per day since teenage years, quit 1 year ago, admitted to [facility] with complaint of increasing shortness of breath, cough and bronchospasm. The patient was recently hospitalized for COPD and asthma exacerbation. She apparently for the past week or so has started to notice increased shortness of breath, cough and wheezing. She was placed on upped the dose of steroids to 60 mg daily, as well as started on Zithromax. Still complained of cough productive of green sputum. Denied any chest pain, nausea, vomiting. She did complain of some sweats. Denied any fevers or chills. Denied any hemoptysis. The patient's symptoms continued to worsen, at which time she presented to the emergency room. In the ER she was treated with magnesium sulfate supplement, Solu-Medrol and inhaled bronchodilators with some clinical improvement. PAST MEDICAL HISTORY: Again includes chronic persistent asthma on chronic steroids and O2, peripheral neuropathy, diastolic heart failure, MGUS, hypothyroidism, GERD. SOCIAL HISTORY: No occupational exposure. Tobacco history: Quit 1 year ago. REVIEW OF SYSTEMS: Positive cough, positive shortness of breath, positive wheezing, positive chills, no fever, no hemoptysis, no abdominal pain. Presents with mild lower extremity edema. CURRENT MEDICATIONS: Started in the ER Solu-Medrol, magnesium and DuoNebs. PHYSICAL EXAMINATION: General: The patient is a well-developed, well-nourished female awake, alert, dyspneic, afebrile. Vital Signs: Blood pressure is 145/94, heart rate 100. O2 saturation is 96% on 2 L. HEENT: Exam is normal. Normocephalic, atraumatic. Neck: Supple. Heart: Tachycardic. Normal S1, S2. Chest: Bilateral expiratory and inspiratory wheezes and rhonchi. Abdomen: Soft. Bowel sounds are positive. Extremities: Bilateral lower extremity edema. LABORATORY: WBC is 26.7, hemoglobin 11.3, hematocrit 35.9, platelet count 423,000. INR is 0.95. Chemistries: BUN 7, creatinine 0.6. Chest x-ray reveals heart is rotated to the left. There is possible right lower lobe opacity. IMPRESSION: Chronic persistent asthma with acute exacerbation. Diastolic heart failure. Monoclonal gammopathy of undetermined significance (MGUS). Neuropathy. PLAN: IV steroids, inhaled bronchodilators, antibiotics. Will follow chest x-ray. Monitor peak flow. Start theophylline 300 mg daily. Also will consider referring patient for a bronchial thermoplasty. GIGI GRAHAM M.D. [id number]
[2017-10-25 17:48] LABS: INR 0.97 (0.82-1.09)
[2017-10-25 17:51] LABS: ACTIVATED PTT 25.9 SECONDS (26.9-34.4)
[2017-10-25 17:55] LABS: ALBUMIN 2.9 g/dl (3.4-5.0); ANION GAP 11 (8-16); BILIRUBIN,TOTAL 0.2 mg/dL (0.2-1.0); BLOOD UREA NITROGEN 19 mg/dL (7-18); CALCIUM 8.4 mg/dL (8.5-10.1); CHLORIDE 107 mmol/L (98-107); CO2 23 mmol/L (21-32); CREATININE 0.9 mg/dL (0.55-1.02); GLUCOSE,RANDOM 216 mg/dL (74-106); MAGNESIUM 2.4 mg/dL (1.8-2.4); PHOSPHOROUS 3.7 mg/dL (2.5-4.9); POTASSIUM 4.4 mmol/L (3.5-5.1); SGOT/AST 14 U/L (15-37); SGPT/ALT 38 U/L (12-78); SODIUM 141 mmol/L (136-145); TOT PROT 6.6 g/dl (6.4-8.2)
[2017-10-25 17:58] LABS: ALK PHOS 53 U/L (45-117); N-TERMINAL BNP 27.09 pg/ml (5-125)
--- NOTE | 2017-10-25 18:19 | HP ---
Admitting History and Physical - Primary Care Physician PCP: Amarjit Burrell - Admission Chief Complaint: Cough, Dyspnea History of Present Illness: Pt with significant Hx/o CHF, Asthma, COPD on chronic steroids, Acute respiratory failure, started last week by Dr. James on Zithromax and Prednisone dose was uptitrate to 60 mg daily, seen today by Dr. Stockton in the office and referred to ER for worsening dyspnea. History Source: Patient - Past Medical History [employer]: Yes: Peripheral Neuropathy (left hand) Cardiovascular: Yes: CHF (Diastolic) Pulmonary: Yes: Asthma, COPD, Other (Former Smoker. Pneumothorax) Gastrointestinal: Yes: GERD Heme/Onc: Yes: Other (MGUS) Endocrine: Yes: Hypothyroidism - Past Surgical History Additional Past Surgical History: Left shoulder Sx - Smoking History Smoking history: Former smoker Have you smoked in the past 12 months: No Aproximately how many cigarettes per day: 1 If you are a former smoker, when did you quit?: 02/17 - Alcohol/Substance Use Hx Alcohol Use: No - Social History History of Recent Travel: No Home Medications - Allergies Allergies/Adverse Reactions: Allergies Allergy/AdvReac Type Severity Reaction Status Date / Time Penicillins Allergy Intermediate Rash Verified 10/25/17 12:12 fluoroquinolones Allergy Severe Difficulty Uncoded 10/25/17 12:12 Breathing - Home Medications Home Medications: Ambulatory Orders Albuterol Sulfate Inhaler - [Ventolin HFA Inhaler -] 2 puff IH Q4H PRN 09/11/15 BUPROPion HCL "SR" [Wellbutrin Sr -] 100 mg PO DAILY 02/14/17 Montelukast Na [Singulair -] 10 mg PO HS 02/14/17 Albuterol 0.083% Nebulizer Yadira [Ventolin 0.083% Nebulizer Soln -] 1 amp NEB Q4H PRN #0 amp 03/03/17 Budesonide/Formeterol Fumarate [SYMBICORT 80/4.5mcg -] 2 inh PO BID 08/23/17 Cetirizine HCl [Zyrtec -] 10 mg PO DAILY 08/23/17 Cyclosporine [Restasis] 1 each OU BID 08/23/17 Famotidine [Pepcid] 40 mg PO DAILY 08/23/17 Lorazepam 1 mg PO DAILY PRN 08/23/17 Acetylcysteine 10% [Mucomyst] 600 mg GT BID #360 ml 08/31/17 Amlodipine Besylate [Norvasc -] 5 mg PO DAILY #30 tablet 08/31/17 Melatonin 10 mg PO HS #60 tab 08/31/17 Naproxen 500 mg PO BID 10/05/17 Nystatin 100,000 unit PO BID 10/05/17 Acetylcysteine Po/INH 20% [Mucomyst 20 Oral / INH Use Only*] 600 mg NEB BID #60 vial 10/12/17 Albuterol 0.083% Nebulizer Yadira [Ventolin 0.083% Nebulizer Soln -] 1 amp NEB Q6H PRN amp 10/12/17 Furosemide [Lasix -] 20 mg PO DAILY #90 tablet 10/12/17 Guaifenesin/D-Methorphan Hb [Diabetic Tussin Dm -] 10 ml PO Q4H #200 ml Prednisone [Deltasone -] See Taper PO DAILY 15 Days #67 tablet 10/12/17 Review of Systems - Review of Systems Constitutional: reports: Fever, Weakness. denies: Chills Eyes: denies: Blurred Vision, Double Vision HENT: denies: Difficult Swallowing, Ear Discharge, Ear Pain, Nasal Congestion, Throat Pain Neck: reports: Stiffness. denies: Pain on Movement Cardiovascular: reports: Palpitations. denies: Chest Pain, Edema Respiratory: reports: Cough, SOB on Exertion, Wheezing. denies: Hemoptysis Gastrointestinal: denies: Abdominal Pain, Diarrhea, Vomiting Genitourinary: denies: Burning, Discharge, Dysuria Musculoskeletal: reports: Joint Pain (Left shoulder). denies: Back Pain Integumentary: denies: Pallor, Rash Neurological: denies: Change in LOC, Change in Speech Endocrine: denies: Excessive Sweating, Intolerance to Cold Psychiatric: denies: Altered Sleep Pattern, Anxiety Physical Examination Vital Signs: Vital Signs Temperature 98.4 F 10/25/17 12:13 Pulse Rate 100 H 10/25/17 12:13 Respiratory Rate 20 10/25/17 12:13 Blood Pressure 145/94 10/25/17 12:13 O2 Sat by Pulse Oximetry (%) 96 10/25/17 12:13 Constitutional: Yes: Anxious. No: Diaphoresis, Pallor Eyes: Yes: Conjunctiva Clear, EOM Intact HENT: No: Drooling, Epistaxis, Rhinnorhea Neck: Yes: Trachea Midline, Lymphadenopathy Cardiovascular: Yes: Regular Rate and Rhythm, S1, S2 Respiratory: Yes: Regular, Rhonchi (bilat.), Wheezes (bilat.) Gastrointestinal: Yes: Normal Bowel Sounds, Soft. No: Tenderness ...Rectal Exam: Yes: Deferred Renal/: No: CVA Tenderness - Left, CVA Tenderness - Right Breast(s): Yes: Other (deferred) Musculoskeletal: Yes: Other (L shoulder still painful, undergoing PT after surgery). No: Back Pain, Joint Swelling Edema: LLE: Trace, RLE: Trace Integumentary: No: Bruising, Jaundice, Rash Neurological: Yes: Alert, Oriented, Other (symmetric motor and sensory in UE/ LE / face.) Psychiatric: Yes: Alert, Oriented Labs: CBC, BMP 10/25/17 17:18 10/25/17 17:18 Imaging - Results Chest X-ray: Report Reviewed Problem List - Problems (1) Pneumonia Code(s): J18.9 - PNEUMONIA, UNSPECIFIED ORGANISM Qualifiers: Pneumonia type: due to unspecified organism Laterality: unspecified laterality Lung location: unspecified part of lung Qualified Code(s): J18.9 - Pneumonia, unspecified organism (2) Acute exacerbation of COPD with asthma Code(s): J44.1 - CHRONIC OBSTRUCTIVE PULMONARY DISEASE W (ACUTE) EXACERBATION; J45.901 - UNSPECIFIED ASTHMA WITH (ACUTE) EXACERBATION (3) CHF (congestive heart failure) Code(s): I50.9 - HEART FAILURE, UNSPECIFIED Qualifiers: (4) MGUS (monoclonal gammopathy of unknown significance) Code(s): D47.2 - MONOCLONAL GAMMOPATHY (5) Shoulder pain, left Code(s): M25.512 - PAIN IN LEFT SHOULDER Assessment/Plan Pulmonary Consult, case was d/w dr. Mccoy ID consult IV abtx per ID IV steroids DVT prophylaxis GI prophylaxis AM labs
--- NOTE | 2017-10-25 18:50 | CON.CARD ---
Cardiology Consult (text) - Consultation Consultation Note: Chief Complaint: sob, cough History of Present Illness: 62yo with h/o new HTN (recently started on norvasc), LE edema/? diastolic dysfunction/chf, copd on home O2, prior PTX needing VATS, MGUS, peripheral neuropathy, GERD, hypothyroid and recent rotator cuff surgery who p/w progressive sob. Recent admit for copd exacerbation earlier this month. Started on lasix 20 mg daily at that time. For the past week has had progressive sob, wheezing. Spoke with outpatient pulm and had uptitration of home steroids and started on abx over the weekend. SOB continued to progress. Now with sob even if walking from one room to the next in her home. + assoc cough with green sputum Ran out of norvasc one week ago. During this time had slight worsening of her LE edema. Upon instructions from pmd, took double lasix for 3 days with improvement. Still with mild LE edema similar to her baseline. Mild discomfort at shoulder surgery site. No cp, palps, orthopnea, pnd, dizzy, loc, bleeding. No f/c/s, h/a, rashes, visual disturbances, congestion. s/p duonebs, IV steroids and ABx in ER with some mild improvement in sx's. PMH/pshx: per phi social hx: former smoker family hx: no cmp ros: per phi. Ambulatory Orders Albuterol Sulfate Inhaler - [Ventolin HFA Inhaler -] 2 puff IH Q4H PRN 09/11/15 BUPROPion HCL "SR" [Wellbutrin Sr -] 100 mg PO DAILY 02/14/17 Montelukast Na [Singulair -] 10 mg PO HS 02/14/17 Albuterol 0.083% Nebulizer Yadira [Ventolin 0.083% Nebulizer Soln -] 1 amp NEB Q4H PRN #0 amp 03/03/17 Budesonide/Formeterol Fumarate [SYMBICORT 80/4.5mcg -] 2 inh PO BID 08/23/17 Cetirizine HCl [Zyrtec -] 10 mg PO DAILY 08/23/17 Cyclosporine [Restasis] 1 each OU BID 08/23/17 Famotidine [Pepcid] 40 mg PO DAILY 08/23/17 Lorazepam 1 mg PO DAILY PRN 08/23/17 Acetylcysteine 10% [Mucomyst] 600 mg GT BID #360 ml 08/31/17 Amlodipine Besylate [Norvasc -] 5 mg PO DAILY #30 tablet 08/31/17 Melatonin 10 mg PO HS #60 tab 08/31/17 Naproxen 500 mg PO BID 10/05/17 Nystatin 100,000 unit PO BID 10/05/17 Acetylcysteine Po/INH 20% [Mucomyst 20 Oral / INH Use Only*] 600 mg NEB BID #60 vial 10/12/17 Albuterol 0.083% Nebulizer Yadira [Ventolin 0.083% Nebulizer Soln -] 1 amp NEB Q6H PRN amp 10/12/17 Furosemide [Lasix -] 20 mg PO DAILY #90 tablet 10/12/17 Guaifenesin/D-Methorphan Hb [Diabetic Tussin Dm -] 10 ml PO Q4H #200 ml Prednisone [Deltasone -] See Taper PO DAILY 15 Days #67 tablet 10/12/17 Current Medications Heparin Sodium (Porcine) (Heparin -) 5,000 unit SQ BID [facility] Vital Signs - 24 hr 10/25/17 12:13 Temperature 98.4 F Pulse Rate 100 H Respiratory 20 Rate Blood Pressure 145/94 O2 Sat by Pulse 96 Oximetry (%) Constitutional: Yes: Well Nourished, No Distress Eyes: No: Sclera Icterus HENT: No: Nasal Congestion Neck: No: Decreased ROM. no jvd. Respiratory: Yes: Wheezes. diminished air movement. Normal effort. No: Accessory Muscle Use, Rales Gastrointestinal: Yes: Normal Bowel Sounds. No: Distention, Hepatomegaly, Palpable Mass, Tenderness Cardiovascular: Yes: Regular Rate and Rhythm JVD: No Carotid Bruit: No PMI: Non-Displaced Heart Sounds: Yes: S1, S2. No: Gallop Murmur: No: Systolic Murmur, Diastolic Murmur Extremities: No: Cold, Cyanosis Edema: trace pedal edema bl Peripheral Pulses: 2+ Left Carotid, 2+ Right Carotid, 2+ Left Doralis Pedis, 2+ Right Dorsalis Pedis Integumentary: No: Jaundice Neurological: Yes: Alert, Oriented (x3) Psychiatric: No: Agitated CBC, BMP 10/25/17 17:18 10/25/17 17:18 Laboratory Tests 10/25/17 10/25/17 10/25/17 17:15 17:18 17:18 INR 0.97 Lactic Acid 4.9 H* Magnesium 2.4 Total Bilirubin 0.2 D AST 14 L ALT 38 Alkaline Phosphatase 53 Creatine Kinase 110 Troponin I < 0.02 B-Natriuretic Peptide 27.09 Albumin 2.9 L ekg: pending cxr: per report, 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 similar to priors. by my review, LLL opacity in area of prior atelectasis/ consolidation is slightly more prominent than on priors. echo 10/2017: tds. nl lv size/fn. rv not well visualized. 1+ mac. small pericardial effusion < 1 cm. Echo 02/2017: tds. nl lv/rv. valves not well seen but no sig ab. dobutamine stress 02/2017: suboptimal, target HR not achieved. occ pvc's seen. diaphragmatic attenuation, no ischemica. EF 73% Assessment/Plan 62yo with h/o new HTN (recently started on norvasc), LE edema/? diastolic dysfunction/chf, copd on home O2, prior PTX needing VATS, MGUS, peripheral neuropathy, GERD, hypothyroid and recent rotator cuff surgery who p/w progressive sob. sob, copd: -no clinical signs or sx's of pulm edema -significant wheezing on exam. current etilogy of sx's seems to be pulmonary > cardiac, eval/mgm't per pmd/pulm - con't effie. ekg pending. HTN: -con't home norvasc HPL: - will start low dose statin. chronic diastolic chf, le venous insuff: -no signs pulm edema or acute chf -bnp low -continue home lasix 20 po qd for le edema
[2017-10-25] MEDS: HEPARIN NA (PORCINE) 5,000 UNITS/ML 1ML VIAL SQ SCH (22:25)
[2017-10-25] MEDS: ATORVASTATIN CA 20 MG TABLET (FP) PO SCH (22:25)
[2017-10-25] MEDS: amLODIPine BESYLATE 5 MG TABLET (FP) PO SCH (22:25)
[2017-10-25] MEDS: BUDESONIDE/FORMETEROL FUMARATE 160/4.5 mcg INHALER IH SCH (22:26)
[2017-10-25] MEDS: methylPREDNISolone NA SUCC 40 MG/1 ML VIAL IVPUSH SCH (23:17)
[2017-10-26 00:07] LABS: URINE APPEARANCE CLEAR; URINE BILIRUBIN NEGATIVE (NEGATIVE); URINE BLOOD 1+ (NEGATIVE); URINE COLOR STRAW; URINE GLUCOSE (UA) 3+ (NEGATIVE); URINE KETONE TRACE (NEGATIVE); URINE LEUK ESTERASE NEGATIVE (NEGATIVE); URINE NITRITE NEGATIVE (NEGATIVE); URINE PROTEIN NEGATIVE (NEGATIVE); URINE UROBILINOGEN NEGATIVE mg/dL (0.2-1.0)
[2017-10-26] MEDS: ALBUTEROL SO4 2.5/IPRATROPIUM 0.5 INH SOL 3 ML VIAL.NEB. NEB PRN ×4 (00:30→21:35)
[2017-10-26 01:01] LABS: EPI CELLS RARE /HPF (FEW)
[2017-10-26] MEDS: methylPREDNISolone NA SUCC 40 MG/1 ML VIAL IVPUSH SCH ×4 (04:00→20:38)
[2017-10-26 07:49] LABS: HEMATOCRIT 34.8 % (32.4-45.2); HEMOGLOBIN 10.9 GM/dL (10.7-15.3); MCH 24.3 pg (25.7-33.7); MCHC 31.2 g/dl (32.0-36.0); MEAN CELL VOLUME 77.8 fl (80-96); MEAN PLT VOLUME 7.4 fl (7.5-11.1); PLATELET COUNT 309 K/MM3 (134-434); RBC 4.48 M/mm3 (3.60-5.2); RDW 19.5 % (11.6-15.6)
[2017-10-26 08:31] LABS: CHLORIDE 104 mmol/L (98-107); POTASSIUM 4.3 mmol/L (3.5-5.1); SODIUM 140 mmol/L (136-145)
[2017-10-26 09:02] LABS: ANION GAP 16 (8-16); BLOOD UREA NITROGEN 15 mg/dL (7-18); CALCIUM 8.7 mg/dL (8.5-10.1); CO2 20 mmol/L (21-32); CREATININE 0.8 mg/dL (0.55-1.02); GLUCOSE,RANDOM 157 mg/dL (74-106)
[2017-10-26] MEDS: BUDESONIDE/FORMETEROL FUMARATE 160/4.5 mcg INHALER IH SCH ×2 (09:37→21:14)
[2017-10-26] MEDS: amLODIPine BESYLATE 5 MG TABLET (FP) PO SCH (09:37)
[2017-10-26] MEDS: HEPARIN NA (PORCINE) 5,000 UNITS/ML 1ML VIAL SQ SCH ×2 (09:37→21:14)
[2017-10-26] MEDS: TIOTROPIUM BROMIDE 18 MCG/INH (DEVICE W/ 5 CAPSULES) IH SCH (09:38)
[2017-10-26] MEDS: THEOPHYLLINE ANHYDROUS PO SCH (09:38)
[2017-10-26] MEDS ORDERED: FUROSEMIDE 20 MG TABLET (FP) PO SCH (10:00)
[2017-10-26] MEDS ORDERED: THEOPHYLLINE ANHYDROUS 200 MG CAP.ER.24H PO SCH (10:00)
--- NOTE | 2017-10-26 10:06 | CON.ID ---
Consult Consult Specialty:: infectious disease Referred by:: dr salazar Reason for Consultation:: worsening cough, wheezing, green sputum - History of Present Illness Chief Complaint: wheezing, green sputum, weakness History of Present Illness: 62 year old female with COPD on home oxygen- stopped smoking about a year ago, recently hospitalized 10/05 to 10/12 for copd exacerbation, got po zithromax noted worsening wheezing and grenn sputum production at home last week- no fevers generalized weakness she contacted her 911 dispatcher who prescribed zithromax 500 mg which she started on 10/21, as well her steroids were increased to 60 mg (she was on at taper from her prior hospital stay) normally takes 20 mg lives alone no fevers no vomiting no hemoptysis no chest pain penicillin and flouroquinolone allergies - History Source History Provided By: Patient - Past Medical History [employer]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 Pneumothorax, home oxygen) Gastrointestinal: Yes: GERD Endocrine: Yes: Hypothyroidism - Past Surgical History Additional Surgical History: 09/24 left rotator cuff repain - Alcohol/Substance Use Hx Alcohol Use: No - Smoking History Smoking history: Former smoker Have you smoked in the past 12 months: No Aproximately how many cigarettes per day: 1 If you are a former smoker, when did you quit?: 02/17 - Social History Usual Living Arrangement: Alone ADL: Independent History of Recent Travel: No Home Medications - Allergies Allergies/Adverse Reactions: Allergies Allergy/AdvReac Type Severity Reaction Status Date / Time Penicillins Allergy Intermediate Rash Verified 10/25/17 12:12 fluoroquinolones Allergy Severe Difficulty Uncoded 10/25/17 12:12 Breathing - Home Medications Home Medications: Ambulatory Orders Albuterol Sulfate Inhaler - [Ventolin HFA Inhaler -] 2 puff IH Q4H PRN 09/11/15 BUPROPion HCL "SR" [Wellbutrin Sr -] 100 mg PO DAILY 02/14/17 Montelukast Na [Singulair -] 10 mg PO HS 02/14/17 Albuterol 0.083% Nebulizer Yadira [Ventolin 0.083% Nebulizer Soln -] 1 amp NEB Q4H PRN #0 amp 03/03/17 Budesonide/Formeterol Fumarate [SYMBICORT 80/4.5mcg -] 2 inh PO BID 08/23/17 Cetirizine HCl [Zyrtec -] 10 mg PO DAILY 08/23/17 Cyclosporine [Restasis] 1 each OU BID 08/23/17 Famotidine [Pepcid] 40 mg PO DAILY 08/23/17 Lorazepam 1 mg PO DAILY PRN 08/23/17 Acetylcysteine 10% [Mucomyst] 600 mg GT BID #360 ml 08/31/17 Amlodipine Besylate [Norvasc -] 5 mg PO DAILY #30 tablet 08/31/17 Melatonin 10 mg PO HS #60 tab 08/31/17 Naproxen 500 mg PO BID 10/05/17 Nystatin 100,000 unit PO BID 10/05/17 Acetylcysteine Po/INH 20% [Mucomyst 20 Oral / INH Use Only*] 600 mg NEB BID #60 vial 10/12/17 Albuterol 0.083% Nebulizer Yadira [Ventolin 0.083% Nebulizer Soln -] 1 amp NEB Q6H PRN amp 10/12/17 Furosemide [Lasix -] 20 mg PO DAILY #90 tablet 10/12/17 Guaifenesin/D-Methorphan Hb [Diabetic Tussin Dm -] 10 ml PO Q4H #200 ml Prednisone [Deltasone -] See Taper PO DAILY 15 Days #67 tablet 10/12/17 Family Disease History - Family Disease History Family History: Unremarkable Review of Systems - Review of Systems Constitutional: reports: Weakness. denies: Chills, Fever, Night Sweats Eyes: reports: No Symptoms HENT: reports: No Symptoms Neck: reports: No Symptoms Cardiovascular: reports: Edema. denies: Chest Pain Respiratory: reports: Cough, SOB, Wheezing. denies: Hemoptysis Gastrointestinal: reports: No Symptoms Genitourinary: reports: No Symptoms Physical Exam Vital Signs: Vital Signs Temperature 98.1 F 10/26/17 09:46 Pulse Rate 88 10/26/17 06:00 Respiratory Rate 24 10/26/17 09:46 Blood Pressure 140/81 10/26/17 06:00 O2 Sat by Pulse Oximetry (%) 95 10/26/17 09:46 Constitutional: Yes: Well Nourished, No Distress Eyes: Yes: Conjunctiva Clear HENT: Yes: Atraumatic, Normocephalic, Thrush. No: Pharyngeal Erythema, Tonsillar Exudate Neck: Yes: WNL Cardiovascular: Yes: Regular Rate and Rhythm Respiratory: Yes: Wheezes Gastrointestinal: Yes: Normal Bowel Sounds, Soft Extremities: Yes: Other (left arm in sling) Edema: LLE: Trace, RLE: Trace Psychiatric: Yes: Alert, Oriented Labs: CBC, BMP 10/26/17 05:55 10/26/17 07:16 Imaging - Results Chest X-ray: Report Reviewed (increased bibasilar markings) Problem List - Problems (1) Acute exacerbation of COPD with asthma Code(s): J44.1 - CHRONIC OBSTRUCTIVE PULMONARY DISEASE W (ACUTE) EXACERBATION; J45.901 - UNSPECIFIED ASTHMA WITH (ACUTE) EXACERBATION (2) Bronchitis Code(s): J40 - BRONCHITIS, NOT SPECIFIED ACUTE OR CHRONIC (3) Pneumonia Code(s): J18.9 - PNEUMONIA, UNSPECIFIED ORGANISM Qualifiers: Pneumonia type: due to unspecified organism Laterality: unspecified laterality Lung location: unspecified part of lung Qualified Code(s): J18.9 - Pneumonia, unspecified organism (4) Penicillin allergy Code(s): Z88.0 - ALLERGY STATUS TO PENICILLIN (5) Obesity (BMI 30.0-34.9) Code(s): E66.9 - OBESITY, UNSPECIFIED Assessment/Plan cannot r/o pneumonia she is on steroids which may mask fevers pen and quinolone allergies noted send sputum culture (productive cough- green sputum) legionella antigen influenza negative received vanoc/azactam in ED will continue pending cultures- would obtain pa and lateral cxray-if negative, will d/c antibiotics and observe recent chest ct 1/2- no PE, no ILD, some atelectasis check rsv antigen d/w Dr Salazar
[2017-10-26] MEDS ORDERED: VANCOMYCIN 1 GRAM (PRE-DOCKED) 1,000 MG/250 ML BAG IVPB SCH (10:15)
[2017-10-26] MEDS ORDERED: VANCOMYCIN 1,000 MG in DEXTROSE 5%-WATER - 250 ML IVPB SCH (11:45)
--- NOTE | 2017-10-26 12:52 | PN ---
Progress Note (short form) - Note Progress Note: Chief Complaint: sob, cough History of Present Illness: sob/wheezing persists. no cp, palps, dizziness. Current Medications Albuterol/Ipratropium (Duoneb -) 1 amp NEB Q4H PRN PRN Reason: SHORTNESS OF BREATH Last Admin: 10/26/17 12:40 Dose: 1 amp Amlodipine Besylate (Norvasc -) 5 mg PO DAILY [facility] Last Admin: 10/26/17 09:37 Dose: 5 mg Atorvastatin Calcium (Lipitor -) 20 mg PO HS [facility] Last Admin: 10/25/17 22:25 Dose: Not Given Budesonide/Formoterol Fumarate (Symbicort 160/4.5mcg -) 2 puff IH BID [facility] Last Admin: 10/26/17 09:37 Dose: 2 puff Furosemide (Lasix -) 20 mg PO DAILY [facility] Last Admin: 10/26/17 09:38 Dose: 20 mg Heparin Sodium (Porcine) (Heparin -) 5,000 unit SQ BID [facility] Last Admin: 10/26/17 09:37 Dose: 5,000 unit Aztreonam (Azactam (Restricted To Id) -) 1 gm in 10 mls @ 120 mls/hr IVPUSH Q8H -IV [facility] PRN Reason: Protocol Vancomycin HCl 1,000 mg/ (Dextrose) 250 mls @ 166.667 mls/hr IVPB BID [facility] Last Admin: 10/26/17 12:41 Dose: 166.667 mls/hr Methylprednisolone Sodium Succinate (Solu-Medrol -) 60 mg IVPUSH Q6H-IV [facility] Last Admin: 10/26/17 09:37 Dose: 60 mg Nystatin (Nystatin Oral Suspension -) 500,000 units PO Q6HPO [facility] Theophylline 200 mg/ (Theophylline 100 mg) 300 mg PO DAILY [facility] Last Admin: 10/26/17 09:38 Dose: 300 mg Tiotropium [place] (Spiriva -) 1 puff IH DAILY [facility] Last Admin: 10/26/17 09:38 Dose: Not Given Vital Signs - 24 hr 10/25/17 10/26/17 10/26/17 22:00 06:00 09:46 Temperature 98.4 F 98.5 F 98.1 F Pulse Rate 97 H 88 Respiratory 20 20 24 Rate Blood Pressure 136/85 140/81 O2 Sat by Pulse 96 95 Oximetry (%) Intake & Output 10/24/17 10/25/17 10/26/17 10/27/17 07:59 07:59 07:59 07:59 Intake Total 400 Balance 400 Weight 171 lb Constitutional: Yes: Well Nourished, No Distress Eyes: No: Sclera Icterus HENT: No: Nasal Congestion Neck: No: Decreased ROM. no jvd. Respiratory: Yes: Wheezes. diminished air movement. Normal effort. No: Accessory Muscle Use, Rales Gastrointestinal: Yes: Normal Bowel Sounds. No: Distention, Hepatomegaly, Palpable Mass, Tenderness Cardiovascular: Yes: Regular Rate and Rhythm JVD: No Carotid Bruit: No PMI: Non-Displaced Heart Sounds: Yes: S1, S2. No: Gallop Murmur: No: Systolic Murmur, Diastolic Murmur Extremities: No: Cold, Cyanosis Edema: no edema Peripheral Pulses: 2+ Left Carotid, 2+ Right Carotid, 2+ Left Doralis Pedis, 2+ Right Dorsalis Pedis Integumentary: No: Jaundice Neurological: Yes: Alert, Oriented (x3) Psychiatric: No: Agitated CBC, BMP 10/26/17 05:55 10/26/17 07:16 Laboratory Tests 10/25/17 10/25/17 10/26/17 17:18 22:42 07:16 Lactic Acid Magnesium 2.4 Creatine Kinase 110 96 89 Troponin I < 0.02 < 0.02 < 0.02 Albumin 2.9 L 10/26/17 10:40 Lactic Acid 5.9 H* Magnesium Creatine Kinase Troponin I Albumin ekg: sinus tach, no ischemic changes. 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 similar to priors. by my review, LLL opacity in area of prior atelectasis/ consolidation is slightly more prominent than on priors. echo 10/2017: tds. nl lv size/fn. rv not well visualized. 1+ mac. small pericardial effusion < 1 cm. Echo 02/2017: tds. nl lv/rv. valves not well seen but no sig ab. dobutamine stress 02/2017: suboptimal, target HR not achieved. occ pvc's seen. diaphragmatic attenuation, no ischemica. EF 73% Assessment/Plan 62yo with h/o new HTN (recently started on norvasc), LE edema/? diastolic dysfunction/chf, copd on home O2, prior PTX needing VATS, MGUS, peripheral neuropathy, GERD, hypothyroid and recent rotator cuff surgery who p/w progressive sob. sob, copd: -no clinical signs or sx's of pulm edema -significant wheezing on exam. current etilogy of sx's seems to be pulmonary > cardiac, eval/mgm't per pmd/pulm - ce's neg x 3. ekg without ischemic changes . no anginal sx's. no signs of acs. HTN: -con't home norvasc HPL: - started low dose statin. chronic diastolic chf, le venous insuff: -no signs pulm edema or acute chf -bnp low -continue home lasix 20 po qd for le edema
[2017-10-26] MEDS: AZTREONAM 1 GRAM SYRINGE 1 GM/10 ML DISP.SYRIN IVPUSH SCH ×2 (15:00→20:37)
[2017-10-26] MEDS: SODIUM CHLORIDE 1,000 ML IV SCH (15:24)
[2017-10-26] MEDS ORDERED: DOCUSATE SODIUM 100 MG CAPSULE (FP) PO PRN (17:34)
--- NOTE | 2017-10-26 17:38 | PN ---
Progress Note (short form) - Note Progress Note: Still with congested cough and [place], but better than last night. No CP. Intake & Output 10/23/17 10/24/17 10/25/17 10/26/17 23:59 23:59 23:59 23:59 Intake Total 400 0 Balance 400 0 Weight 171 lb Last Vital Signs Temp Pulse Resp BP Pulse Ox 98.2 F 112 H 28 H 122/80 98 10/26/17 15:00 10/26/17 15:00 10/26/17 15:00 10/26/17 15:00 10/26/17 15:00 Active Medications Albuterol/Ipratropium (Duoneb -) 1 amp NEB Q4H PRN PRN Reason: SHORTNESS OF BREATH Last Admin: 10/26/17 12:40 Dose: 1 amp Amlodipine Besylate (Norvasc -) 5 mg PO DAILY [facility] Last Admin: 10/26/17 09:37 Dose: 5 mg Atorvastatin Calcium (Lipitor -) 20 mg PO HS [facility] Last Admin: 10/25/17 22:25 Dose: Not Given Budesonide/Formoterol Fumarate (Symbicort 160/4.5mcg -) 2 puff IH BID [facility] Last Admin: 10/26/17 09:37 Dose: 2 puff Docusate Sodium (Colace -) 100 mg PO Q12H PRN PRN Reason: CONSTIPATION Furosemide (Lasix -) 20 mg PO DAILY [facility] Last Admin: 10/26/17 09:38 Dose: 20 mg Heparin Sodium (Porcine) (Heparin -) 5,000 unit SQ BID [facility] Last Admin: 10/26/17 09:37 Dose: 5,000 unit Aztreonam (Azactam (Restricted To Id) -) 1 gm in 10 mls @ 120 mls/hr IVPUSH Q8H -IV [facility] PRN Reason: Protocol Vancomycin HCl 1,000 mg/ (Dextrose) 250 mls @ 166.667 mls/hr IVPB BID [facility] Last Admin: 10/26/17 12:41 Dose: 166.667 mls/hr Sodium Chloride (Normal Saline -) 1,000 mls @ 50 mls/hr IV ASDIR [facility] Last Admin: 10/26/17 15:24 Dose: 50 mls/hr Methylprednisolone Sodium Succinate (Solu-Medrol -) 60 mg IVPUSH Q6H-IV [facility] Last Admin: 10/26/17 15:23 Dose: 60 mg Nystatin (Nystatin Oral Suspension -) 500,000 units PO Q6HPO [facility] Pantoprazole Sodium (Protonix -) 40 mg PO DAILY [facility] Theophylline 200 mg/ (Theophylline 100 mg) 300 mg PO DAILY [facility] Last Admin: 10/26/17 09:38 Dose: 300 mg Tiotropium [place] (Spiriva -) 1 puff IH DAILY [facility] Last Admin: 10/26/17 09:38 Dose: Not Given Constitutional: Yes: Mildly tachypneic at rest Eyes: No: Sclera Icterus HENT: No: Nasal Congestion Neck: No: Decreased ROM. no jvd. Respiratory: Yes: Bilateral expiratory Wheezes. diminished air movement. Normal effort. No: Accessory Muscle Use, Rales Gastrointestinal: Yes: Normal Bowel Sounds. No: Distention, Hepatomegaly, Palpable Mass, Tenderness Cardiovascular: Yes: Regular Rate and Rhythm JVD: No Carotid Bruit: No PMI: Non-Displaced Heart Sounds: Yes: S1, S2. No: Gallop Murmur: No: Systolic Murmur, Diastolic Murmur Extremities: No: Cold, Cyanosis Edema: trace pedal edema bl Peripheral Pulses: 2+ Left Carotid, 2+ Right Carotid, 2+ Left Doralis Pedis, 2+ Right Dorsalis Pedis Integumentary: No: Jaundice Neurological: Yes: Alert, Oriented (x3) Psychiatric: No: Agitated Laboratory Results - last 24 hr 10/25/17 10/25/17 10/25/17 17:15 17:18 17:18 WBC 12.7 H D RBC 4.45 Hgb 10.9 Hct 34.8 MCV 78.1 L MCH 24.5 L MCHC 31.3 L RDW 19.6 H Plt Count 327 D MPV 7.7 Neutrophils % 88.6 H Lymphocytes % 7.9 L Monocytes % 2.9 L Eosinophils % 0.0 D Basophils % 0.6 PT with INR 11.00 INR 0.97 PTT (Actin FS) 25.9 L VBG pH POC VBG pCO2 POC VBG pO2 Mixed VBG HCO3 Sodium Potassium Chloride Carbon Dioxide Anion Gap BUN Creatinine Creat Clearance w eGFR Random Glucose Lactic Acid 4.9 H* Calcium Phosphorus Magnesium Total Bilirubin AST ALT Alkaline Phosphatase Creatine Kinase Troponin I B-Natriuretic Peptide Total Protein Albumin Urine Color Urine Appearance Urine pH Ur Specific [place] Urine Protein Urine Glucose (UA) Urine Ketones Urine Blood Urine Nitrite Urine Bilirubin Urine Urobilinogen Ur Leukocyte Esterase Urine WBC (Auto) Urine RBC (Auto) Ur Epithelial Cells Blood Type Antibody Screen 10/25/17 10/25/17 10/25/17 17:18 17:18 17:18 WBC RBC Hgb Hct MCV MCH MCHC RDW Plt Count MPV Neutrophils % Lymphocytes % Monocytes % Eosinophils % Basophils % PT with INR INR PTT (Actin FS) VBG pH 7.42 POC VBG pCO2 35.8 L POC VBG pO2 50.3 H D Mixed VBG HCO3 23.2 Sodium 141 Potassium 4.4 Chloride 107 Carbon Dioxide 23 Anion Gap 11 BUN 19 H Creatinine 0.9 Creat Clearance w eGFR > 60 Random Glucose 216 H Lactic Acid Calcium 8.4 L Phosphorus 3.7 Magnesium 2.4 Total Bilirubin 0.2 D AST 14 L ALT 38 Alkaline Phosphatase 53 Creatine Kinase 110 Troponin I < 0.02 B-Natriuretic Peptide 27.09 Total Protein 6.6 Albumin 2.9 L Urine Color Urine Appearance Urine pH Ur Specific [place] Urine Protein Urine Glucose (UA) Urine Ketones Urine Blood Urine Nitrite Urine Bilirubin Urine Urobilinogen Ur Leukocyte Esterase Urine WBC (Auto) Urine RBC (Auto) Ur Epithelial Cells Blood Type A POSITIVE Antibody Screen Negative 10/25/17 10/25/17 10/26/17 17:18 22:42 05:55 WBC 16.0 H RBC 4.48 Hgb 10.9 Hct 34.8 MCV 77.8 L MCH 24.3 L MCHC 31.2 L RDW 19.5 H Plt Count 309 MPV 7.4 L Neutrophils % Lymphocytes % Monocytes % Eosinophils % Basophils % PT with INR INR PTT (Actin FS) VBG pH POC VBG pCO2 POC VBG pO2 Mixed VBG HCO3 Sodium Potassium Chloride Carbon Dioxide Anion Gap BUN Creatinine Creat Clearance w eGFR Random Glucose Lactic Acid Calcium Phosphorus Magnesium Total Bilirubin AST ALT Alkaline Phosphatase Creatine Kinase 96 Troponin I < 0.02 B-Natriuretic Peptide Cancelled Total Protein Albumin Urine Color Urine Appearance Urine pH Ur Specific [place] Urine Protein Urine Glucose (UA) Urine Ketones Urine Blood Urine Nitrite Urine Bilirubin Urine Urobilinogen Ur Leukocyte Esterase Urine WBC (Auto) Urine RBC (Auto) Ur Epithelial Cells Blood Type Antibody Screen 10/26/17 10/26/17 10/26/17 07:16 07:16 10:40 WBC RBC Hgb Hct MCV MCH MCHC RDW Plt Count MPV Neutrophils % Lymphocytes % Monocytes % Eosinophils % Basophils % PT with INR INR PTT (Actin FS) VBG pH POC VBG pCO2 POC VBG pO2 Mixed VBG HCO3 Sodium 140 Potassium 4.3 Chloride 104 Carbon Dioxide 20 L Anion Gap 16 BUN 15 Creatinine 0.8 Creat Clearance w eGFR Random Glucose 157 H Lactic Acid 5.9 H* Calcium 8.7 Phosphorus Magnesium Total Bilirubin AST ALT Alkaline Phosphatase Creatine Kinase 89 Troponin I < 0.02 B-Natriuretic Peptide Total Protein Albumin Urine Color Urine Appearance Urine pH Ur Specific [place] Urine Protein Urine Glucose (UA) Urine Ketones Urine Blood Urine Nitrite Urine Bilirubin Urine Urobilinogen Ur Leukocyte Esterase Urine WBC (Auto) Urine RBC (Auto) Ur Epithelial Cells Blood Type Antibody Screen 10/26/17 23:58 WBC RBC Hgb Hct MCV MCH MCHC RDW Plt Count MPV Neutrophils % Lymphocytes % Monocytes % Eosinophils % Basophils % PT with INR INR PTT (Actin FS) VBG pH POC VBG pCO2 POC VBG pO2 Mixed VBG HCO3 Sodium Potassium Chloride Carbon Dioxide Anion Gap BUN Creatinine Creat Clearance w eGFR Random Glucose Lactic Acid Calcium Phosphorus Magnesium Total Bilirubin AST ALT Alkaline Phosphatase Creatine Kinase Troponin I B-Natriuretic Peptide Total Protein Albumin Urine Color Straw Urine Appearance Clear Urine pH 5.0 Ur Specific [place] 1.017 Urine Protein Negative Urine Glucose (UA) 3+ H Urine Ketones Trace H Urine Blood 1+ H Urine Nitrite Negative Urine Bilirubin Negative Urine Urobilinogen Negative Ur Leukocyte Esterase Negative Urine WBC (Auto) 1 Urine RBC (Auto) 5 Ur Epithelial Cells Rare Blood Type Antibody Screen Problem List - Problems (1) Acute on chronic respiratory failure with hypoxia Code(s): J96.21 - ACUTE AND CHRONIC RESPIRATORY FAILURE WITH HYPOXIA (2) Acute exacerbation of COPD with asthma Code(s): J44.1 - CHRONIC OBSTRUCTIVE PULMONARY DISEASE W (ACUTE) EXACERBATION; J45.901 - UNSPECIFIED ASTHMA WITH (ACUTE) EXACERBATION (3) Asthma exacerbation Code(s): J45.901 - UNSPECIFIED ASTHMA WITH (ACUTE) EXACERBATION (4) CHF (congestive heart failure) Code(s): I50.9 - HEART FAILURE, UNSPECIFIED Qualifiers: (5) Diabetes 1.5, managed as type 2 Code(s): E13.9 - OTHER SPECIFIED DIABETES MELLITUS WITHOUT COMPLICATIONS (6) Edema of both feet Code(s): R60.0 - LOCALIZED EDEMA (7) MGUS (monoclonal gammopathy of unknown significance) Code(s): D47.2 - MONOCLONAL GAMMOPATHY (8) Moderate persistent chronic asthma with acute exacerbation Code(s): J45.41 - MODERATE PERSISTENT ASTHMA WITH (ACUTE) EXACERBATION (9) Respiratory distress Code(s): R06.00 - DYSPNEA, UNSPECIFIED IMP ACUTE ON CHRONIC HYPOXEMIC RESPIRATORY FAILURE CHRONIC PERSISTENT ASTHMA WITH ACUTE EXACERBATION DIASTOLIC HF MGUS PERIPHERAL NEUROPATHY PLAN IV STEROIDS INHALED BRONCHODILATORS O2 THEOPHYLLINE MONITOR PEAK FLOW ABX PER ID DR ZARATE
--- NOTE | 2017-10-26 17:39 | PN ---
Progress Note, Physician History of Present Illness: Pt's breathing is the same, sputum is lighteer in color. Pt w/o CP, palp, abd apin Pt w/o BM X 2 days. - Current Medication List Current Medications: Active Medications Albuterol/Ipratropium (Duoneb -) 1 amp NEB Q4H PRN PRN Reason: SHORTNESS OF BREATH Last Admin: 10/26/17 12:40 Dose: 1 amp Amlodipine Besylate (Norvasc -) 5 mg PO DAILY [facility] Last Admin: 10/26/17 09:37 Dose: 5 mg Atorvastatin Calcium (Lipitor -) 20 mg PO HS [facility] Last Admin: 10/25/17 22:25 Dose: Not Given Budesonide/Formoterol Fumarate (Symbicort 160/4.5mcg -) 2 puff IH BID [facility] Last Admin: 10/26/17 09:37 Dose: 2 puff Furosemide (Lasix -) 20 mg PO DAILY [facility] Last Admin: 10/26/17 09:38 Dose: 20 mg Heparin Sodium (Porcine) (Heparin -) 5,000 unit SQ BID [facility] Last Admin: 10/26/17 09:37 Dose: 5,000 unit Aztreonam (Azactam (Restricted To Id) -) 1 gm in 10 mls @ 120 mls/hr IVPUSH Q8H -IV [facility] PRN Reason: Protocol Vancomycin HCl 1,000 mg/ (Dextrose) 250 mls @ 166.667 mls/hr IVPB BID [facility] Last Admin: 10/26/17 12:41 Dose: 166.667 mls/hr Sodium Chloride (Normal Saline -) 1,000 mls @ 50 mls/hr IV ASDIR [facility] Last Admin: 10/26/17 15:24 Dose: 50 mls/hr Methylprednisolone Sodium Succinate (Solu-Medrol -) 60 mg IVPUSH Q6H-IV [facility] Last Admin: 10/26/17 15:23 Dose: 60 mg Nystatin (Nystatin Oral Suspension -) 500,000 units PO Q6HPO [facility] Theophylline 200 mg/ (Theophylline 100 mg) 300 mg PO DAILY [facility] Last Admin: 10/26/17 09:38 Dose: 300 mg Tiotropium [place] (Spiriva -) 1 puff IH DAILY [facility] Last Admin: 10/26/17 09:38 Dose: Not Given - Objective Vital Signs: Vital Signs Temperature 98.2 F 10/26/17 15:00 Pulse Rate 112 H 10/26/17 15:00 Respiratory Rate 28 H 10/26/17 15:00 Blood Pressure 122/80 10/26/17 15:00 O2 Sat by Pulse Oximetry (%) 98 10/26/17 15:00 Constitutional: Yes: No Distress, Calm Cardiovascular: Yes: Regular Rate and Rhythm, S1, S2 Respiratory: Yes: Regular, Rhonchi, Wheezes Gastrointestinal: Yes: Normal Bowel Sounds, Soft, Abdomen, Obese. No: Palpable Mass, Tenderness Edema: LLE: Trace, RLE: Trace Neurological: Yes: Alert, Oriented Labs: CBC, BMP 10/26/17 05:55 10/26/17 07:16 INR, PTT INR 0.97 (0.82-1.09) 10/25/17 17:18 Problem List - Problems (1) Pneumonia Code(s): J18.9 - PNEUMONIA, UNSPECIFIED ORGANISM Qualifiers: Pneumonia type: due to unspecified organism Laterality: unspecified laterality Lung location: unspecified part of lung Qualified Code(s): J18.9 - Pneumonia, unspecified organism (2) Acute exacerbation of COPD with asthma Code(s): J44.1 - CHRONIC OBSTRUCTIVE PULMONARY DISEASE W (ACUTE) EXACERBATION; J45.901 - UNSPECIFIED ASTHMA WITH (ACUTE) EXACERBATION (3) CHF (congestive heart failure) Code(s): I50.9 - HEART FAILURE, UNSPECIFIED Qualifiers: (4) MGUS (monoclonal gammopathy of unknown significance) Code(s): D47.2 - MONOCLONAL GAMMOPATHY (5) Shoulder pain, left Code(s): M25.512 - PAIN IN LEFT SHOULDER (6) Constipation Assessment/Plan: Start Colace Code(s): K59.00 - CONSTIPATION, UNSPECIFIED (7) Leukocytosis Assessment/Plan: likely secondary to Steroids Code(s): D72.829 - ELEVATED WHITE BLOOD CELL COUNT, UNSPECIFIED (8) Lactic acidosis Assessment/Plan: IVF Repeate level in AM Code(s): E87.2 - ACIDOSIS Assessment/Plan Pulmonary Consult, ID consult appreciated IV abtx per ID IV steroids DVT prophylaxis GI prophylaxis AM labs
[2017-10-26] MEDS: PANTOPRAZOLE 40 MG TABLET (FP) PO SCH (18:24)
[2017-10-26] MEDS: NYSTATIN 500,000 UNITS/5 ML SUSPENSION PO SCH ×2 (18:24→23:13)
[2017-10-26] MEDS: ATORVASTATIN CA 20 MG TABLET (FP) PO SCH (21:14)
[2017-10-27] MEDS: VANCOMYCIN 1,000 MG in DEXTROSE 5%-WATER - 250 ML IVPB SCH ×2 (02:52→15:45)
[2017-10-27] MEDS: methylPREDNISolone NA SUCC 40 MG/1 ML VIAL IVPUSH SCH ×4 (02:52→19:02)
[2017-10-27] MEDS: AZTREONAM 1 GRAM SYRINGE 1 GM/10 ML DISP.SYRIN IVPUSH SCH ×3 (02:52→19:08)
[2017-10-27] MEDS: SODIUM CHLORIDE 1,000 ML IV SCH ×2 (06:52→15:30)
[2017-10-27] MEDS: NYSTATIN 500,000 UNITS/5 ML SUSPENSION PO SCH ×3 (06:53→19:01)
--- NOTE | 2017-10-27 08:08 | EKG ---
Test Reason : Blood Pressure : / mmHG Vent. Rate : 110 BPM Atrial Rate : 110 BPM P-R Int : 144 ms QRS Dur : 076 ms QT Int : 336 ms P-R-T Axes : 029 036 063 degrees QTc Int : 454 ms SINUS TACHYCARDIA OTHERWISE NORMAL ECG WHEN COMPARED WITH ECG OF 05-OCT-2017 12:21, NO SIGNIFICANT CHANGE WAS FOUND Confirmed by RIKI MCGREGOR MD ([id number]) on 10/27/2017 8:07:56 AM Referred By: Confirmed By:RIKI MCGREGOR MD
--- NOTE | 2017-10-27 08:10 | PN ---
Progress Note, Physician Chief Complaint: ID Vancomcyin and Aztreonam per Dr Holm PCN allergy Subjective improvement - Current Medication List Current Medications: Active Medications Albuterol/Ipratropium (Duoneb -) 1 amp NEB Q4H PRN PRN Reason: SHORTNESS OF BREATH Last Admin: 10/26/17 21:35 Dose: 1 amp Amlodipine Besylate (Norvasc -) 5 mg PO DAILY [facility] Last Admin: 10/26/17 09:37 Dose: 5 mg Atorvastatin Calcium (Lipitor -) 20 mg PO HS [facility] Last Admin: 10/26/17 21:14 Dose: 20 mg Budesonide/Formoterol Fumarate (Symbicort 160/4.5mcg -) 2 puff IH BID [facility] Last Admin: 10/26/17 21:14 Dose: 2 puff Docusate Sodium (Colace -) 100 mg PO Q12H PRN PRN Reason: CONSTIPATION Furosemide (Lasix -) 20 mg PO DAILY [facility] Last Admin: 10/26/17 09:38 Dose: 20 mg Heparin Sodium (Porcine) (Heparin -) 5,000 unit SQ BID [facility] Last Admin: 10/26/17 21:14 Dose: 5,000 unit Aztreonam (Azactam (Restricted To Id) -) 1 gm in 10 mls @ 120 mls/hr IVPUSH Q8H -IV [facility] PRN Reason: Protocol Last Admin: 10/27/17 02:52 Dose: 120 mls/hr Sodium Chloride (Normal Saline -) 1,000 mls @ 50 mls/hr IV ASDIR [facility] Last Admin: 10/27/17 06:52 Dose: 50 mls/hr Vancomycin HCl 1,000 mg/ (Dextrose) 250 mls @ 166.667 mls/hr IVPB Q12H [facility] Last Admin: 10/27/17 02:52 Dose: 166.667 mls/hr Methylprednisolone Sodium Succinate (Solu-Medrol -) 60 mg IVPUSH Q6H-IV [facility] Last Admin: 10/27/17 02:52 Dose: 60 mg Nystatin (Nystatin Oral Suspension -) 500,000 units PO Q6HPO [facility] Last Admin: 10/27/17 06:53 Dose: 500,000 units Pantoprazole Sodium (Protonix -) 40 mg PO DAILY [facility] Last Admin: 10/26/17 18:24 Dose: 40 mg Theophylline 200 mg/ (Theophylline 100 mg) 300 mg PO DAILY [facility] Last Admin: 10/26/17 09:38 Dose: 300 mg Tiotropium [place] (Spiriva -) 1 puff IH DAILY [facility] Last Admin: 10/26/17 09:38 Dose: Not Given - Objective Vital Signs: Vital Signs Temperature 97.5 F L 10/27/17 06:00 Pulse Rate 95 H 10/27/17 06:00 Respiratory Rate 20 10/27/17 06:00 Blood Pressure 140/77 10/27/17 06:00 O2 Sat by Pulse Oximetry (%) 98 10/26/17 21:00 Constitutional: Yes: No Distress HENT: Yes: WNL, Atraumatic Neck: Yes: WNL, Supple Cardiovascular: Yes: Regular Rate and Rhythm, S1, S2, Other. No: Murmur Respiratory: Yes: WNL, Regular, CTA Bilaterally, Rhonchi Gastrointestinal: Yes: WNL, Normal Bowel Sounds, Soft. No: Tenderness, Tenderness, Epigastrium Edema: No Labs: CBC, BMP 10/26/17 05:55 10/26/17 07:16 INR, PTT INR 0.97 (0.82-1.09) 10/25/17 17:18 Assessment/Plan Microbiology 10/26/17 16:30 Nasopharyngeal Swab Respiratory Syncytial Virus Ag - Final 10/25/17 17:10 Nasopharyngeal Swab Influenza Types A,B Antigen (GEORGINA) - Final 10/25/17 17:10 Nasopharyngeal Swab - Final Laboratory Tests 10/26/17 10/26/17 10/27/17 05:55 07:16 07:30 WBC 16.0 H Pending Hgb 10.9 Pending Plt Count 309 Pending BUN 15 Creatinine 0.8 10/27/17 07:30 WBC Hgb Plt Count BUN Pending Creatinine Pending Assessment Exacerbation of COPD Plan Continue current antibiotics Jocelin CHAUHAN
[2017-10-27] MEDS: ALBUTEROL SO4 2.5/IPRATROPIUM 0.5 INH SOL 3 ML VIAL.NEB. NEB PRN ×4 (08:40→20:35)
[2017-10-27 08:57] LABS: CHLORIDE 105 mmol/L (98-107)
[2017-10-27 10:30] LABS: HEMATOCRIT 33.1 % (32.4-45.2); HEMOGLOBIN 10.2 GM/dL (10.7-15.3); MCH 24.1 pg (25.7-33.7); MEAN CELL VOLUME 77.8 fl (80-96); MEAN PLT VOLUME 7.3 fl (7.5-11.1); PLATELET COUNT 303 K/MM3 (134-434); RBC 4.25 M/mm3 (3.60-5.2); RDW 19.2 % (11.6-15.6); WHITE BLOOD COUNT 20.2 K/mm3 (4.0-10.0)
[2017-10-27 10:41] LABS: ALBUMIN 2.8 g/dl (3.4-5.0); BILIRUBIN,TOTAL 0.4 mg/dL (0.2-1.0); BLOOD UREA NITROGEN 18 mg/dL (7-18); CALCIUM 8.5 mg/dL (8.5-10.1); CO2 23 mmol/L (21-32); GLUCOSE,RANDOM 181 mg/dL (74-106); TOT PROT 6.3 g/dl (6.4-8.2)
[2017-10-27] MEDS ORDERED: PT OWN MED DRAWER 7, Y5N ONE ×3 (10:52→21:33)
--- NOTE | 2017-10-27 10:52 | PN ---
Progress Note, Physician History of Present Illness: Pt's breathing is a little better, sputum is outreach analyst in color. Pt w/o CP, palp, abd pain, N, V. Pt w/o BM yet. - Current Medication List Current Medications: Active Medications Albuterol/Ipratropium (Duoneb -) 1 amp NEB Q4H PRN PRN Reason: SHORTNESS OF BREATH Last Admin: 10/27/17 08:40 Dose: 1 amp Amlodipine Besylate (Norvasc -) 5 mg PO DAILY [facility] Last Admin: 10/26/17 09:37 Dose: 5 mg Atorvastatin Calcium (Lipitor -) 20 mg PO HS [facility] Last Admin: 10/26/17 21:14 Dose: 20 mg Budesonide/Formoterol Fumarate (Symbicort 160/4.5mcg -) 2 puff IH BID [facility] Last Admin: 10/26/17 21:14 Dose: 2 puff Docusate Sodium (Colace -) 100 mg PO Q12H PRN PRN Reason: CONSTIPATION Heparin Sodium (Porcine) (Heparin -) 5,000 unit SQ BID [facility] Last Admin: 10/26/17 21:14 Dose: 5,000 unit Aztreonam (Azactam (Restricted To Id) -) 1 gm in 10 mls @ 120 mls/hr IVPUSH Q8H -IV [facility] PRN Reason: Protocol Last Admin: 10/27/17 02:52 Dose: 120 mls/hr Sodium Chloride (Normal Saline -) 1,000 mls @ 50 mls/hr IV ASDIR [facility] Last Admin: 10/27/17 06:52 Dose: 50 mls/hr Vancomycin HCl 1,000 mg/ (Dextrose) 250 mls @ 166.667 mls/hr IVPB Q12H [facility] Last Admin: 10/27/17 02:52 Dose: 166.667 mls/hr Methylprednisolone Sodium Succinate (Solu-Medrol -) 60 mg IVPUSH Q6H-IV [facility] Last Admin: 10/27/17 09:49 Dose: 60 mg Nystatin (Nystatin Oral Suspension -) 500,000 units PO Q6HPO [facility] Last Admin: 10/27/17 06:53 Dose: 500,000 units Pantoprazole Sodium (Protonix -) 40 mg PO DAILY [facility] Last Admin: 10/26/17 18:24 Dose: 40 mg Theophylline 200 mg/ (Theophylline 100 mg) 300 mg PO DAILY [facility] Last Admin: 10/26/17 09:38 Dose: 300 mg Tiotropium [place] (Spiriva -) 1 puff IH DAILY [facility] Last Admin: 10/26/17 09:38 Dose: Not Given - Objective Vital Signs: Vital Signs Temperature 98.2 F 10/27/17 08:48 Pulse Rate 102 H 10/27/17 08:48 Respiratory Rate 24 10/27/17 08:48 Blood Pressure 145/72 10/27/17 08:48 O2 Sat by Pulse Oximetry (%) 98 10/26/17 21:00 Constitutional: Yes: No Distress, Calm Cardiovascular: Yes: Regular Rate and Rhythm, S1, S2 Respiratory: Yes: Regular, Rhonchi, Wheezes Gastrointestinal: Yes: Normal Bowel Sounds, Soft. No: Tenderness Edema: No Neurological: Yes: Alert, Oriented Labs: INR, PTT INR 0.97 (0.82-1.09) 10/25/17 17:18 reviewed Problem List - Problems (1) Pneumonia Code(s): J18.9 - PNEUMONIA, UNSPECIFIED ORGANISM Qualifiers: Pneumonia type: due to unspecified organism Laterality: unspecified laterality Lung location: unspecified part of lung Qualified Code(s): J18.9 - Pneumonia, unspecified organism (2) Acute exacerbation of COPD with asthma Code(s): J44.1 - CHRONIC OBSTRUCTIVE PULMONARY DISEASE W (ACUTE) EXACERBATION; J45.901 - UNSPECIFIED ASTHMA WITH (ACUTE) EXACERBATION (3) CHF (congestive heart failure) Code(s): I50.9 - HEART FAILURE, UNSPECIFIED Qualifiers: (4) MGUS (monoclonal gammopathy of unknown significance) Code(s): D47.2 - MONOCLONAL GAMMOPATHY (5) Shoulder pain, left Code(s): M25.512 - PAIN IN LEFT SHOULDER (6) Constipation Code(s): K59.00 - CONSTIPATION, UNSPECIFIED (7) Leukocytosis Code(s): D72.829 - ELEVATED WHITE BLOOD CELL COUNT, UNSPECIFIED (8) Lactic acidosis Assessment/Plan: improving; cont IVF Code(s): E87.2 - ACIDOSIS Assessment/Plan Pulmonary Consult, ID consult appreciated IV abtx per ID IV steroids- joseph per Pulmonary DVT prophylaxis GI prophylaxis Miralax today. AM labs
[2017-10-27] MEDS: PANTOPRAZOLE 40 MG TABLET (FP) PO SCH (10:57)
[2017-10-27] MEDS: HEPARIN NA (PORCINE) 5,000 UNITS/ML 1ML VIAL SQ SCH ×2 (10:57→21:37)
[2017-10-27] MEDS: amLODIPine BESYLATE 5 MG TABLET (FP) PO SCH (10:57)
[2017-10-27] MEDS: BUDESONIDE/FORMETEROL FUMARATE 160/4.5 mcg INHALER IH SCH ×2 (10:57→21:37)
[2017-10-27] MEDS: THEOPHYLLINE ANHYDROUS PO SCH (10:58)
--- NOTE | 2017-10-27 11:16 | PN ---
Progress Note (short form) - Note Progress Note: Chief Complaint: sob, cough History of Present Illness: sob/wheezing persists but better. no cp, palps, dizziness. Current Medications Generic Name Dose Route Start Last Admin Trade Name Freq PRN Reason Stop Dose Admin Albuterol/Ipratropium 1 amp 10/26/17 01:42 10/27/17 08:40 Duoneb - NEB 1 amp Q4H PRN Administration SHORTNESS OF BREATH Amlodipine Besylate 5 mg 10/25/17 19:00 10/27/17 10:57 Norvasc - PO 5 mg DAILY [facility] Administration Atorvastatin Calcium 20 mg 10/25/17 22:00 10/26/17 21:14 Lipitor - PO 20 mg HS [facility] Administration Budesonide/Formoterol Fumarate 2 puff 10/25/17 22:00 10/27/17 10:57 Symbicort 160/4.5mcg - IH 2 puff BID [facility] Administration Docusate Sodium 100 mg 10/26/17 17:34 Colace - PO Q12H PRN CONSTIPATION Heparin Sodium (Porcine) 5,000 unit 10/25/17 22:00 10/27/17 10:57 Heparin - SQ 5,000 unit BID [facility] Administration Aztreonam 1 gm in 10 mls @ 120 mls/hr 10/26/17 11:45 10/27/17 11:08 Azactam (Restricted To Id) - IVPUSH 120 mls/hr Q8H-IV [facility] Administration Protocol Sodium Chloride 1,000 mls @ 50 mls/hr 10/26/17 15:30 10/27/17 06:52 Normal Saline - IV 50 mls/hr ASDIR [facility] Administration Vancomycin HCl 1,000 mg/ 250 mls @ 166.667 mls/hr 10/27/17 03:00 10/27/17 02: 52 Dextrose IVPB 166.667 mls/hr Q12H [facility] Administration Methylprednisolone Sodium Succinate 60 mg 10/25/17 21:00 10/27/17 09:49 Solu-Medrol - IVPUSH 60 mg Q6H-IV [facility] Administration Nystatin 500,000 units 10/26/17 18:00 10/27/17 06:53 Nystatin Oral Suspension - PO 500,000 units Q6HPO [facility] Administration Pantoprazole Sodium 40 mg 10/26/17 17:45 10/27/17 10:57 Protonix - PO 40 mg DAILY [facility] Administration Theophylline 200 mg/ 300 mg 10/26/17 10:00 10/27/17 10:58 Theophylline 100 mg PO 300 mg DAILY [facility] Administration Tiotropium [place] 1 puff 10/26/17 10:00 10/26/17 09:38 Spiriva - IH Not Given DAILY [facility] Vital Signs Period Temp Pulse Resp BP Sys/Stringer Pulse Ox Last 24 Hr 97.5 F-98.2 F 88-112 20-28 122-145/70-81 98-98 Constitutional: Yes: Well Nourished, No Distress Eyes: No: Sclera Icterus Neck: No: Decreased ROM. no jvd. Respiratory: Yes: Wheezes. diminished air movement. Normal effort. No: Accessory Muscle Use, Rales Gastrointestinal: Yes: Normal Bowel Sounds. No: Distention, Hepatomegaly, Palpable Mass, Tenderness Cardiovascular: Yes: Regular Rate and Rhythm JVD: No Heart Sounds: Yes: S1, S2. No: Gallop Murmur: No: Systolic Murmur, Diastolic Murmur Extremities: No: Cold, Cyanosis Edema: no edema Integumentary: No: Jaundice Neurological: Yes: Alert, Oriented (x3) Psychiatric: No: Agitated CBC, BMP 10/27/17 09:50 ekg: sinus tach, no ischemic changes. 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 similar to priors. by my review, LLL opacity in area of prior atelectasis/ consolidation is slightly more prominent than on priors. echo 10/2017: tds. nl lv size/fn. rv not well visualized. 1+ mac. small pericardial effusion < 1 cm. Echo 02/2017: tds. nl lv/rv. valves not well seen but no sig ab. dobutamine stress 02/2017: suboptimal, target HR not achieved. occ pvc's seen. diaphragmatic attenuation, no ischemica. EF 73% Assessment/Plan 62yo with h/o new HTN (recently started on norvasc), LE edema/? diastolic dysfunction/chf, copd on home O2, prior PTX needing VATS, MGUS, peripheral neuropathy, GERD, hypothyroid and recent rotator cuff surgery who p/w progressive sob. sob, copd: -no clinical signs or sx's of pulm edema -significant wheezing on exam. current etiology of sx's seems to be pulmonary > cardiac, eval/mgm't per pmd/pulm -ce's neg x 3. ekg without ischemic changes . no anginal sx's. no signs of acs. HTN: -con't home norvasc HPL: - started low dose statin. chronic diastolic chf, le venous insuff: -no signs pulm edema or acute chf -bnp low -was on lasix 20 qd for le edema at home, holding now while on ivfs
[2017-10-27] MEDS ORDERED: POLYETHYLENE GLYCOL 3350 119 GM BTL PO ONE (11:28)
[2017-10-27] MEDS: DOCUSATE SODIUM 100 MG CAPSULE (FP) PO SCH ×2 (12:27→21:36)
[2017-10-27 12:31] LABS: ANION GAP 13 (8-16); CREATININE 0.8 mg/dL (0.55-1.02); POTASSIUM 4.1 mmol/L (3.5-5.1); SGOT/AST 24 U/L (15-37); SGPT/ALT 31 U/L (12-78); SODIUM 141 mmol/L (136-145)
[2017-10-27 12:32] LABS: ALK PHOS 41 U/L (45-117)
[2017-10-27] MEDS: TIOTROPIUM BROMIDE 18 MCG/INH (DEVICE W/ 5 CAPSULES) IH SCH (14:04)
--- NOTE | 2017-10-27 15:47 | PN ---
Progress Note, Physician Chief Complaint: COUGH/WHEEZE IMPROVED History of Present Illness: WELL KNOWN BY ME FROM OUTPATIENT VISITS - Current Medication List Current Medications: Active Medications Albuterol/Ipratropium (Duoneb -) 1 amp NEB Q4H PRN PRN Reason: SHORTNESS OF BREATH Last Admin: 10/27/17 11:35 Dose: 1 amp Amlodipine Besylate (Norvasc -) 5 mg PO DAILY [facility] Last Admin: 10/27/17 10:57 Dose: 5 mg Atorvastatin Calcium (Lipitor -) 20 mg PO HS [facility] Last Admin: 10/26/17 21:14 Dose: 20 mg Budesonide/Formoterol Fumarate (Symbicort 160/4.5mcg -) 2 puff IH BID [facility] Last Admin: 10/27/17 10:57 Dose: 2 puff Docusate Sodium (Colace -) 100 mg PO BID [facility] Last Admin: 10/27/17 12:27 Dose: 100 mg Heparin Sodium (Porcine) (Heparin -) 5,000 unit SQ BID [facility] Last Admin: 10/27/17 10:57 Dose: 5,000 unit Aztreonam (Azactam (Restricted To Id) -) 1 gm in 10 mls @ 120 mls/hr IVPUSH Q8H -IV [facility] PRN Reason: Protocol Last Admin: 10/27/17 11:08 Dose: 120 mls/hr Sodium Chloride (Normal Saline -) 1,000 mls @ 50 mls/hr IV ASDIR [facility] Last Admin: 10/27/17 06:52 Dose: 50 mls/hr Vancomycin HCl 1,000 mg/ (Dextrose) 250 mls @ 166.667 mls/hr IVPB Q12H [facility] Last Admin: 10/27/17 02:52 Dose: 166.667 mls/hr Methylprednisolone Sodium Succinate (Solu-Medrol -) 40 mg IVPUSH Q8H-IV [facility] Nystatin (Nystatin Oral Suspension -) 500,000 units PO Q6HPO [facility] Last Admin: 10/27/17 12:27 Dose: 500,000 units Pantoprazole Sodium (Protonix -) 40 mg PO DAILY [facility] Last Admin: 10/27/17 10:57 Dose: 40 mg Theophylline 200 mg/ (Theophylline 100 mg) 300 mg PO DAILY [facility] Last Admin: 10/27/17 10:58 Dose: 300 mg Tiotropium [place] (Spiriva -) 1 puff IH DAILY [facility] Last Admin: 10/27/17 14:04 Dose: 1 puff - Objective Vital Signs: Vital Signs Temperature 97.6 F 10/27/17 15:13 Pulse Rate 114 H 10/27/17 15:13 Respiratory Rate 22 10/27/17 15:13 Blood Pressure 150/88 10/27/17 15:13 O2 Sat by Pulse Oximetry (%) 98 10/26/17 21:00 Constitutional: Yes: Calm Eyes: Yes: EOM Intact HENT: Yes: Normocephalic Neck: Yes: Trachea Midline Cardiovascular: Yes: Tachycardia, S1, S2 Respiratory: Yes: Wheezes (DIFFUSE B/LPOSTERIOR) Gastrointestinal: Yes: Normal Bowel Sounds Edema: LLE: Trace, RLE: Trace Integumentary: Yes: WNL Neurological: Yes: Alert Psychiatric: Yes: Alert Labs: CBC, BMP 10/27/17 09:50 10/27/17 07:30 INR, PTT INR 0.97 (0.82-1.09) 10/25/17 17:18 - ....Imaging Chest X-ray: Report Reviewed, Image Reviewed EKG: Report Reviewed, Image Reviewed Problem List - Problems (1) Acute on chronic respiratory failure with hypoxia Code(s): J96.21 - ACUTE AND CHRONIC RESPIRATORY FAILURE WITH HYPOXIA (2) COPD (chronic obstructive pulmonary disease) Code(s): J44.9 - CHRONIC OBSTRUCTIVE PULMONARY DISEASE, UNSPECIFIED Qualifiers: COPD type: unspecified COPD Qualified Code(s): J44.9 - Chronic obstructive pulmonary disease, unspecified (3) Lactic acidosis Code(s): E87.2 - ACIDOSIS (4) Pneumonia Code(s): J18.9 - PNEUMONIA, UNSPECIFIED ORGANISM Qualifiers: Pneumonia type: due to unspecified organism Laterality: unspecified laterality Lung location: unspecified part of lung Qualified Code(s): J18.9 - Pneumonia, unspecified organism (5) Acute exacerbation of COPD with asthma Code(s): J44.1 - CHRONIC OBSTRUCTIVE PULMONARY DISEASE W (ACUTE) EXACERBATION; J45.901 - UNSPECIFIED ASTHMA WITH (ACUTE) EXACERBATION (6) Asthma Code(s): J45.909 - UNSPECIFIED ASTHMA, UNCOMPLICATED Qualifiers: Asthma severity: moderate Asthma persistence: persistent Asthma complication type: with acute exacerbation Qualified Code(s): J45.41 - Moderate persistent asthma with (acute) exacerbation Assessment/Plan LACTIC ACID/WBC COUNT RISING DESPITE CLINICAL IMPROVEMENT IMP ACUTE ON CHRONIC HYPOXEMIC RESPIRATORY FAILURE CHRONIC PERSISTENT ASTHMA WITH ACUTE EXACERBATION DIASTOLIC HF MGUS PERIPHERAL NEUROPATHY PLAN IV STEROIDS REDUCED INHALED BRONCHODILATORS O2 THEOPHYLLINE MONITOR PEAK FLOW ABX PER ID Leonardo MARSH MD
[2017-10-27] MEDS: ATORVASTATIN CA 20 MG TABLET (FP) PO SCH (21:37)
[2017-10-28] MEDS: NYSTATIN 500,000 UNITS/5 ML SUSPENSION PO SCH ×4 (01:00→17:12)
[2017-10-28] MEDS: AZTREONAM 1 GRAM SYRINGE 1 GM/10 ML DISP.SYRIN IVPUSH SCH ×3 (01:47→18:08)
[2017-10-28] MEDS: methylPREDNISolone NA SUCC 40 MG/1 ML VIAL IVPUSH SCH ×3 (01:51→18:08)
[2017-10-28] MEDS: VANCOMYCIN 1,000 MG in DEXTROSE 5%-WATER - 250 ML IVPB SCH ×2 (03:17→14:08)
[2017-10-28 07:47] LABS: HEMOGLOBIN 9.7 GM/dL (10.7-15.3); MCH 24.3 pg (25.7-33.7); MCHC 31.1 g/dl (32.0-36.0); MEAN CELL VOLUME 78.1 fl (80-96); MEAN PLT VOLUME 7.7 fl (7.5-11.1); PLATELET COUNT 299 K/MM3 (134-434); RBC 3.97 M/mm3 (3.60-5.2); RDW 19.3 % (11.6-15.6); WHITE BLOOD COUNT 17.9 K/mm3 (4.0-10.0)
[2017-10-28 07:51] LABS: ANION GAP 10 (8-16); BLOOD UREA NITROGEN 17 mg/dL (7-18); CALCIUM 7.8 mg/dL (8.5-10.1); CHLORIDE 105 mmol/L (98-107); CO2 25 mmol/L (21-32); CREATININE 0.6 mg/dL (0.55-1.02); GLUCOSE,RANDOM 207 mg/dL (74-106); POTASSIUM 3.7 mmol/L (3.5-5.1); SODIUM 140 mmol/L (136-145)
[2017-10-28] MEDS: TIOTROPIUM BROMIDE 18 MCG/INH (DEVICE W/ 5 CAPSULES) IH SCH (09:17)
[2017-10-28] MEDS: BUDESONIDE/FORMETEROL FUMARATE 160/4.5 mcg INHALER IH SCH ×2 (09:18→23:04)
[2017-10-28] MEDS: amLODIPine BESYLATE 5 MG TABLET (FP) PO SCH (09:20)
[2017-10-28] MEDS: DOCUSATE SODIUM 100 MG CAPSULE (FP) PO SCH ×2 (09:20→22:41)
[2017-10-28] MEDS: PANTOPRAZOLE 40 MG TABLET (FP) PO SCH (09:20)
[2017-10-28] MEDS: HEPARIN NA (PORCINE) 5,000 UNITS/ML 1ML VIAL SQ SCH ×2 (09:21→22:41)
[2017-10-28] MEDS: THEOPHYLLINE ANHYDROUS PO SCH (09:23)
--- NOTE | 2017-10-28 09:57 | PN ---
Progress Note, Physician History of Present Illness: Pt's breathing is slightly better. Pt w/o CP, palp, abd pain, N, V. Pt had BM this AM - Current Medication List Current Medications: Active Medications Albuterol/Ipratropium (Duoneb -) 1 amp NEB Q4H PRN PRN Reason: SHORTNESS OF BREATH Last Admin: 10/27/17 20:35 Dose: 1 amp Amlodipine Besylate (Norvasc -) 5 mg PO DAILY [facility] Last Admin: 10/28/17 09:20 Dose: 5 mg Atorvastatin Calcium (Lipitor -) 20 mg PO HS [facility] Last Admin: 10/27/17 21:37 Dose: 20 mg Budesonide/Formoterol Fumarate (Symbicort 160/4.5mcg -) 2 puff IH BID [facility] Last Admin: 10/28/17 09:18 Dose: 2 puff Docusate Sodium (Colace -) 100 mg PO BID [facility] Last Admin: 10/28/17 09:20 Dose: 100 mg Heparin Sodium (Porcine) (Heparin -) 5,000 unit SQ BID [facility] Last Admin: 10/28/17 09:21 Dose: 5,000 unit Aztreonam (Azactam (Restricted To Id) -) 1 gm in 10 mls @ 120 mls/hr IVPUSH Q8H -IV [facility] PRN Reason: Protocol Last Admin: 10/28/17 09:20 Dose: 120 mls/hr Sodium Chloride (Normal Saline -) 1,000 mls @ 50 mls/hr IV ASDIR [facility] Last Admin: 10/27/17 15:30 Dose: Not Given Vancomycin HCl 1,000 mg/ (Dextrose) 250 mls @ 166.667 mls/hr IVPB Q12H [facility] Last Admin: 10/28/17 03:17 Dose: 166.667 mls/hr Methylprednisolone Sodium Succinate (Solu-Medrol -) 40 mg IVPUSH Q8H-IV [facility] Last Admin: 10/28/17 09:19 Dose: 40 mg Nystatin (Nystatin Oral Suspension -) 500,000 units PO Q6HPO [facility] Last Admin: 10/28/17 06:16 Dose: 500,000 units Pantoprazole Sodium (Protonix -) 40 mg PO DAILY [facility] Last Admin: 10/28/17 09:20 Dose: 40 mg Theophylline 200 mg/ (Theophylline 100 mg) 300 mg PO DAILY [facility] Last Admin: 10/28/17 09:23 Dose: 300 mg Tiotropium [place] (Spiriva -) 1 puff IH DAILY [facility] Last Admin: 10/28/17 09:17 Dose: 1 puff - Objective Vital Signs: Vital Signs Temperature 97.5 F L 10/28/17 06:00 Pulse Rate 88 10/28/17 06:00 Respiratory Rate 20 10/28/17 06:00 Blood Pressure 140/87 10/28/17 06:00 O2 Sat by Pulse Oximetry (%) 94 L 10/27/17 21:00 Constitutional: Yes: No Distress, Calm Cardiovascular: Yes: Regular Rate and Rhythm, S1 Respiratory: Yes: Regular, Rales, Rhonchi, Wheezes Gastrointestinal: Yes: Normal Bowel Sounds, Soft. No: Tenderness Peripheral Pulses WNL: No Neurological: Yes: Alert, Oriented Labs: CBC, BMP 10/28/17 06:30 10/28/17 06:30 INR, PTT INR 0.97 (0.82-1.09) 10/25/17 17:18 Problem List - Problems (1) Pneumonia Code(s): J18.9 - PNEUMONIA, UNSPECIFIED ORGANISM Qualifiers: Pneumonia type: due to unspecified organism Laterality: unspecified laterality Lung location: unspecified part of lung Qualified Code(s): J18.9 - Pneumonia, unspecified organism (2) Acute exacerbation of COPD with asthma Code(s): J44.1 - CHRONIC OBSTRUCTIVE PULMONARY DISEASE W (ACUTE) EXACERBATION; J45.901 - UNSPECIFIED ASTHMA WITH (ACUTE) EXACERBATION (3) CHF (congestive heart failure) Code(s): I50.9 - HEART FAILURE, UNSPECIFIED Qualifiers: (4) MGUS (monoclonal gammopathy of unknown significance) Code(s): D47.2 - MONOCLONAL GAMMOPATHY (5) Shoulder pain, left Code(s): M25.512 - PAIN IN LEFT SHOULDER Assessment/Plan Pulmonary Consult, ID consult appreciated Abtx per ID IV steroids- to taper slowly per Pulmonary DVT prophylaxis GI prophylaxis I encouraged pt to walk in the hallway. Case was d/w pt's nurse. AM labs
--- NOTE | 2017-10-28 10:13 | PN ---
Progress Note (short form) - Note Progress Note: Chief Complaint: sob, cough History of Present Illness: sob/wheezing persists but better. no cp, palps, dizziness. Current Medications Generic Name Dose Route Start Last Admin Trade Name Freq PRN Reason Stop Dose Admin Albuterol/Ipratropium 1 amp 10/26/17 01:42 10/27/17 20:35 Duoneb - NEB 1 amp Q4H PRN Administration SHORTNESS OF BREATH Amlodipine Besylate 5 mg 10/25/17 19:00 10/28/17 09:20 Norvasc - PO 5 mg DAILY [facility] Administration Atorvastatin Calcium 20 mg 10/25/17 22:00 10/27/17 21:37 Lipitor - PO 20 mg HS [facility] Administration Budesonide/Formoterol Fumarate 2 puff 10/25/17 22:00 10/28/17 09:18 Symbicort 160/4.5mcg - IH 2 puff BID [facility] Administration Docusate Sodium 100 mg 10/27/17 12:00 10/28/17 09:20 Colace - PO 100 mg BID [facility] Administration Heparin Sodium (Porcine) 5,000 unit 10/25/17 22:00 10/28/17 09:21 Heparin - SQ 5,000 unit BID [facility] Administration Aztreonam 1 gm in 10 mls @ 120 mls/hr 10/26/17 11:45 10/28/17 09:20 Azactam (Restricted To Id) - IVPUSH 120 mls/hr Q8H-IV [facility] Administration Protocol Sodium Chloride 1,000 mls @ 50 mls/hr 10/26/17 15:30 10/27/17 15:30 Normal Saline - IV Not Given ASDIR [facility] Vancomycin HCl 1,000 mg/ 250 mls @ 166.667 mls/hr 10/27/17 03:00 10/28/17 03: 17 Dextrose IVPB 166.667 mls/hr Q12H [facility] Administration Methylprednisolone Sodium Succinate 40 mg 10/27/17 18:00 10/28/17 09:19 Solu-Medrol - IVPUSH 40 mg Q8H-IV [facility] Administration Nystatin 500,000 units 10/26/17 18:00 10/28/17 06:16 Nystatin Oral Suspension - PO 500,000 units Q6HPO [facility] Administration Pantoprazole Sodium 40 mg 10/26/17 17:45 10/28/17 09:20 Protonix - PO 40 mg DAILY [facility] Administration Theophylline 200 mg/ 300 mg 10/26/17 10:00 10/28/17 09:23 Theophylline 100 mg PO 300 mg DAILY [facility] Administration Tiotropium [place] 1 puff 10/26/17 10:00 10/28/17 09:17 Spiriva - IH 1 puff DAILY [facility] Administration Vital Signs Period Temp Pulse Resp BP Sys/Stringer Pulse Ox Last 24 Hr 97.5 F-98.4 F 88-114 20-24 128-150/70-88 93-94 Constitutional: Yes: Well Nourished, No Distress Eyes: No: Sclera Icterus Neck: No: Decreased ROM. no jvd. Respiratory: Yes: Wheezes. diminished air movement. Normal effort. No: Accessory Muscle Use, Rales Gastrointestinal: Yes: Normal Bowel Sounds. No: Distention, Hepatomegaly, Palpable Mass, Tenderness Cardiovascular: Yes: Regular Rate and Rhythm JVD: No Heart Sounds: Yes: S1, S2. No: Gallop Murmur: No: Systolic Murmur, Diastolic Murmur Extremities: No: Cold, Cyanosis Edema: no edema Integumentary: No: Jaundice Neurological: Yes: Alert, Oriented (x3) Psychiatric: No: Agitated CBC, BMP 10/28/17 06:30 10/28/17 06:30 ekg: sinus tach, no ischemic changes. 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 similar to priors. by my review, LLL opacity in area of prior atelectasis/ consolidation is slightly more prominent than on priors. echo 10/2017: tds. nl lv size/fn. rv not well visualized. 1+ mac. small pericardial effusion < 1 cm. Echo 02/2017: tds. nl lv/rv. valves not well seen but no sig ab. dobutamine stress 02/2017: suboptimal, target HR not achieved. occ pvc's seen. diaphragmatic attenuation, no ischemica. EF 73% Assessment/Plan 62yo with h/o new HTN (recently started on norvasc), LE edema/? diastolic dysfunction/chf, copd on home O2, prior PTX needing VATS, MGUS, peripheral neuropathy, GERD, hypothyroid and recent rotator cuff surgery who p/w progressive sob. sob, copd: -no clinical signs or sx's of pulm edema -current etiology of sx's seems to be pulmonary > cardiac, mgm't per pmd/pulm -ce's neg x 3. ekg without ischemic changes . no anginal sx's. no signs of acs. HTN: -con't home norvasc HPL: - on statin. chronic diastolic chf, le venous insuff: -no signs pulm edema or acute chf -bnp low -was on lasix 20 qd for le edema at home, holding now while on ivfs
[2017-10-28] MEDS: ALBUTEROL SO4 2.5/IPRATROPIUM 0.5 INH SOL 3 ML VIAL.NEB. NEB PRN ×2 (11:30→20:50)
--- NOTE | 2017-10-28 14:22 | PN ---
Progress Note, Physician History of Present Illness: pulmonary alert,feeling better,less dyspneic,less congested - Current Medication List Current Medications: Active Medications Albuterol/Ipratropium (Duoneb -) 1 amp NEB Q4H PRN PRN Reason: SHORTNESS OF BREATH Last Admin: 10/27/17 20:35 Dose: 1 amp Amlodipine Besylate (Norvasc -) 5 mg PO DAILY [facility] Last Admin: 10/28/17 09:20 Dose: 5 mg Atorvastatin Calcium (Lipitor -) 20 mg PO HS [facility] Last Admin: 10/27/17 21:37 Dose: 20 mg Budesonide/Formoterol Fumarate (Symbicort 160/4.5mcg -) 2 puff IH BID [facility] Last Admin: 10/28/17 09:18 Dose: 2 puff Docusate Sodium (Colace -) 100 mg PO BID [facility] Last Admin: 10/28/17 09:20 Dose: 100 mg Heparin Sodium (Porcine) (Heparin -) 5,000 unit SQ BID [facility] Last Admin: 10/28/17 09:21 Dose: 5,000 unit Aztreonam (Azactam (Restricted To Id) -) 1 gm in 10 mls @ 120 mls/hr IVPUSH Q8H -IV [facility] PRN Reason: Protocol Last Admin: 10/28/17 09:20 Dose: 120 mls/hr Sodium Chloride (Normal Saline -) 1,000 mls @ 50 mls/hr IV ASDIR [facility] Last Admin: 10/27/17 15:30 Dose: Not Given Vancomycin HCl 1,000 mg/ (Dextrose) 250 mls @ 166.667 mls/hr IVPB Q12H [facility] Last Admin: 10/28/17 14:08 Dose: 166.667 mls/hr Insulin Aspart (Novolog Vial Sliding Scale -) 1 vial SQ BIDAC [facility] PRN Reason: Protocol Methylprednisolone Sodium Succinate (Solu-Medrol -) 40 mg IVPUSH Q8H-IV [facility] Last Admin: 10/28/17 09:19 Dose: 40 mg Nystatin (Nystatin Oral Suspension -) 500,000 units PO Q6HPO [facility] Last Admin: 10/28/17 12:01 Dose: 500,000 units Pantoprazole Sodium (Protonix -) 40 mg PO DAILY [facility] Last Admin: 10/28/17 09:20 Dose: 40 mg Theophylline 200 mg/ (Theophylline 100 mg) 300 mg PO DAILY [facility] Last Admin: 10/28/17 09:23 Dose: 300 mg Tiotropium [place] (Spiriva -) 1 puff IH DAILY [facility] Last Admin: 10/28/17 09:17 Dose: 1 puff - Objective Vital Signs: Vital Signs Temperature 98.5 F 10/28/17 11:16 Pulse Rate 90 10/28/17 11:16 Respiratory Rate 22 10/28/17 11:16 Blood Pressure 150/83 10/28/17 11:16 O2 Sat by Pulse Oximetry (%) 94 L 10/27/17 21:00 Constitutional: Yes: Well Nourished, Calm Eyes: Yes: WNL HENT: Yes: WNL Neck: Yes: WNL Cardiovascular: Yes: Regular Rate and Rhythm, S1, S2 Respiratory: Yes: Wheezes (wheezes) Gastrointestinal: Yes: Normal Bowel Sounds, Soft Extremities: Yes: WNL Edema: Yes Labs: CBC, BMP 10/28/17 06:30 10/28/17 06:30 INR, PTT INR 0.97 (0.82-1.09) 10/25/17 17:18 Problem List - Problems (1) Acute on chronic respiratory failure with hypoxia Code(s): J96.21 - ACUTE AND CHRONIC RESPIRATORY FAILURE WITH HYPOXIA (2) Acute exacerbation of COPD with asthma Code(s): J44.1 - CHRONIC OBSTRUCTIVE PULMONARY DISEASE W (ACUTE) EXACERBATION; J45.901 - UNSPECIFIED ASTHMA WITH (ACUTE) EXACERBATION (3) Asthma exacerbation Code(s): J45.901 - UNSPECIFIED ASTHMA WITH (ACUTE) EXACERBATION (4) CHF (congestive heart failure) Code(s): I50.9 - HEART FAILURE, UNSPECIFIED Qualifiers: (5) Diabetes 1.5, managed as type 2 Code(s): E13.9 - OTHER SPECIFIED DIABETES MELLITUS WITHOUT COMPLICATIONS (6) Edema of both feet Code(s): R60.0 - LOCALIZED EDEMA (7) MGUS (monoclonal gammopathy of unknown significance) Code(s): D47.2 - MONOCLONAL GAMMOPATHY (8) Moderate persistent chronic asthma with acute exacerbation Code(s): J45.41 - MODERATE PERSISTENT ASTHMA WITH (ACUTE) EXACERBATION (9) Respiratory distress Code(s): R06.00 - DYSPNEA, UNSPECIFIED Assessment/Plan IMP ACUTE ON CHRONIC HYPOXEMIC RESPIRATORY FAILURE CHRONIC PERSISTENT ASTHMA WITH ACUTE EXACERBATION DIASTOLIC HF PNEUMONIA MGUS PERIPHERAL NEUROPATHY PLAN IV STEROIDS INHALED BRONCHODILATORS O2 THEOPHYLLINE LEVEL MONITOR PEAK FLOW ABX F/U CHEST X-RAY Problem List - Problems (1) Acute on chronic respiratory failure with hypoxia Code(s): J96.21 - ACUTE AND CHRONIC RESPIRATORY FAILURE WITH HYPOXIA (2) Acute exacerbation of COPD with asthma Code(s): J44.1 - CHRONIC OBSTRUCTIVE PULMONARY DISEASE W (ACUTE) EXACERBATION; J45.901 - UNSPECIFIED ASTHMA WITH (ACUTE) EXACERBATION (3) Asthma exacerbation Code(s): J45.901 - UNSPECIFIED ASTHMA WITH (ACUTE) EXACERBATION (4) CHF (congestive heart failure) Code(s): I50.9 - HEART FAILURE, UNSPECIFIED Qualifiers: (5) Diabetes 1.5, managed as type 2 Code(s): E13.9 - OTHER SPECIFIED DIABETES MELLITUS WITHOUT COMPLICATIONS (6) Edema of both feet Code(s): R60.0 - LOCALIZED EDEMA (7) MGUS (monoclonal gammopathy of unknown significance) Code(s): D47.2 - MONOCLONAL GAMMOPATHY (8) Moderate persistent chronic asthma with acute exacerbation Code(s): J45.41 - MODERATE PERSISTENT ASTHMA WITH (ACUTE) EXACERBATION (9) Respiratory distress Code(s): R06.00 - DYSPNEA, UNSPECIFIED
--- NOTE | 2017-10-28 15:48 | PN ---
Progress Note, Physician Chief Complaint: ID vancomycin aztreonam corticosteroids Continued improvement - Current Medication List Current Medications: Active Medications Albuterol/Ipratropium (Duoneb -) 1 amp NEB Q4H PRN PRN Reason: SHORTNESS OF BREATH Last Admin: 10/27/17 20:35 Dose: 1 amp Amlodipine Besylate (Norvasc -) 5 mg PO DAILY [facility] Last Admin: 10/28/17 09:20 Dose: 5 mg Atorvastatin Calcium (Lipitor -) 20 mg PO HS [facility] Last Admin: 10/27/17 21:37 Dose: 20 mg Budesonide/Formoterol Fumarate (Symbicort 160/4.5mcg -) 2 puff IH BID [facility] Last Admin: 10/28/17 09:18 Dose: 2 puff Docusate Sodium (Colace -) 100 mg PO BID [facility] Last Admin: 10/28/17 09:20 Dose: 100 mg Heparin Sodium (Porcine) (Heparin -) 5,000 unit SQ BID [facility] Last Admin: 10/28/17 09:21 Dose: 5,000 unit Aztreonam (Azactam (Restricted To Id) -) 1 gm in 10 mls @ 120 mls/hr IVPUSH Q8H -IV [facility] PRN Reason: Protocol Last Admin: 10/28/17 09:20 Dose: 120 mls/hr Sodium Chloride (Normal Saline -) 1,000 mls @ 50 mls/hr IV ASDIR [facility] Last Admin: 10/27/17 15:30 Dose: Not Given Vancomycin HCl 1,000 mg/ (Dextrose) 250 mls @ 166.667 mls/hr IVPB Q12H [facility] Last Admin: 10/28/17 14:08 Dose: 166.667 mls/hr Insulin Aspart (Novolog Vial Sliding Scale -) 1 vial SQ BIDAC [facility] PRN Reason: Protocol Methylprednisolone Sodium Succinate (Solu-Medrol -) 40 mg IVPUSH Q8H-IV [facility] Last Admin: 10/28/17 09:19 Dose: 40 mg Nystatin (Nystatin Oral Suspension -) 500,000 units PO Q6HPO [facility] Last Admin: 10/28/17 12:01 Dose: 500,000 units Pantoprazole Sodium (Protonix -) 40 mg PO DAILY [facility] Last Admin: 10/28/17 09:20 Dose: 40 mg Theophylline 200 mg/ (Theophylline 100 mg) 300 mg PO DAILY [facility] Last Admin: 10/28/17 09:23 Dose: 300 mg Tiotropium [place] (Spiriva -) 1 puff IH DAILY [facility] Last Admin: 10/28/17 09:17 Dose: 1 puff - Objective Vital Signs: Vital Signs Temperature 98.5 F 10/28/17 11:16 Pulse Rate 90 10/28/17 11:16 Respiratory Rate 22 10/28/17 11:16 Blood Pressure 150/83 10/28/17 11:16 O2 Sat by Pulse Oximetry (%) 97 10/28/17 09:00 Constitutional: Yes: No Distress Neck: Yes: WNL, Supple Cardiovascular: Yes: Regular Rate and Rhythm, S1, S2 Respiratory: Yes: WNL, Regular, CTA Bilaterally, Rhonchi, Wheezes Gastrointestinal: Yes: Soft, Tenderness Edema: No Labs: CBC, BMP 10/28/17 06:30 10/28/17 06:30 INR, PTT INR 0.97 (0.82-1.09) 10/25/17 17:18 Assessment/Plan Microbiology 10/26/17 23:58 Urine - Urine Clean Catch Urine Culture - Final NO GROWTH OBTAINED 10/26/17 16:30 Nasopharyngeal Swab Respiratory Syncytial Virus Ag - Final 10/26/17 13:00 Sputum - Expectorated Gram Stain - Final 10/26/17 13:00 Sputum - Expectorated Sputum Culture - Final NORMAL RESPIRATORY LIVIA 10/25/17 17:10 Nasopharyngeal Swab Influenza Types A,B Antigen (GEORGINA) - Final 10/25/17 17:10 Nasopharyngeal Swab - Final 10/25/17 17:10 Blood - Peripheral Venous Blood Culture - Preliminary NO GROWTH OBTAINED AFTER 48 HOURS, INCUBATION TO CONTINUE FOR 3 DAYS. 10/25/17 17:10 Blood - Peripheral Venous Blood Culture - Preliminary NO GROWTH OBTAINED AFTER 48 HOURS, INCUBATION TO CONTINUE FOR 3 DAYS. Laboratory Tests 10/28/17 10/28/17 10/28/17 02:00 06:30 06:30 WBC 17.9 H Hgb 9.7 L Hct 31.0 L Plt Count 299 BUN 17 Creatinine 0.6 Lactic Acid Vancomycin Pre-Dose 8.414 10/28/17 08:15 WBC Hgb Hct Plt Count BUN Creatinine Lactic Acid 3.5 H* Vancomycin Pre-Dose Assessment Excerbation of COPD ? Pneumonia Antibiotic allergies Empiric treatment Plan Continue same therapy another 24-48hours Jocelin CHAUHAN
[2017-10-28] MEDS: INSULIN SLIDING SCALE (NOVOLOG) 1 VIAL SQ SCH (16:26)
[2017-10-28] MEDS: SODIUM CHLORIDE 1,000 ML IV SCH (16:29)
--- NOTE | 2017-10-28 19:13 | PN ---
Progress Note, Physician History of Present Illness: Pt's breathing is better. Pt w/o CP, palp, abd pain, N, V. Pt had BM in AM. - Current Medication List Current Medications: Active Medications Albuterol/Ipratropium (Duoneb -) 1 amp NEB Q4H PRN PRN Reason: SHORTNESS OF BREATH Last Admin: 10/28/17 11:30 Dose: 1 amp Amlodipine Besylate (Norvasc -) 5 mg PO DAILY [facility] Last Admin: 10/28/17 09:20 Dose: 5 mg Atorvastatin Calcium (Lipitor -) 20 mg PO HS [facility] Last Admin: 10/27/17 21:37 Dose: 20 mg Budesonide/Formoterol Fumarate (Symbicort 160/4.5mcg -) 2 puff IH BID [facility] Last Admin: 10/28/17 09:18 Dose: 2 puff Docusate Sodium (Colace -) 100 mg PO BID [facility] Last Admin: 10/28/17 09:20 Dose: 100 mg Heparin Sodium (Porcine) (Heparin -) 5,000 unit SQ BID [facility] Last Admin: 10/28/17 09:21 Dose: 5,000 unit Aztreonam (Azactam (Restricted To Id) -) 1 gm in 10 mls @ 120 mls/hr IVPUSH Q8H -IV [facility] PRN Reason: Protocol Last Admin: 10/28/17 18:08 Dose: 120 mls/hr Sodium Chloride (Normal Saline -) 1,000 mls @ 50 mls/hr IV [facility]IR [facility] Last Admin: 10/28/17 16:29 Dose: Not Given Vancomycin HCl 1,000 mg/ (Dextrose) 250 mls @ 166.667 mls/hr IVPB Q12H [facility] Last Admin: 10/28/17 14:08 Dose: 166.667 mls/hr Insulin Aspart (Novolog Vial Sliding Scale -) 1 vial SQ BIDAC [facility] PRN Reason: Protocol Last Admin: 10/28/17 16:26 Dose: 4 units Methylprednisolone Sodium Succinate (Solu-Medrol -) 40 mg IVPUSH Q8H-IV [facility] Last Admin: 10/28/17 18:08 Dose: 40 mg Nystatin (Nystatin Oral Suspension -) 500,000 units PO Q6HPO [facility] Last Admin: 10/28/17 17:12 Dose: 500,000 units Pantoprazole Sodium (Protonix -) 40 mg PO DAILY [facility] Last Admin: 10/28/17 09:20 Dose: 40 mg Theophylline 200 mg/ (Theophylline 100 mg) 300 mg PO DAILY [facility] Last Admin: 10/28/17 09:23 Dose: 300 mg Tiotropium [place] (Spiriva -) 1 puff IH DAILY [facility] Last Admin: 10/28/17 09:17 Dose: 1 puff - Objective Vital Signs: Vital Signs Temperature 97.9 F 10/28/17 18:14 Pulse Rate 97 H 10/28/17 18:14 Respiratory Rate 20 10/28/17 18:14 Blood Pressure 152/95 10/28/17 18:14 O2 Sat by Pulse Oximetry (%) 97 10/28/17 09:00 Constitutional: Yes: No Distress, Calm Cardiovascular: Yes: Regular Rate and Rhythm, S1, S2 Respiratory: Yes: Regular, Rhonchi, Wheezes Gastrointestinal: Yes: Normal Bowel Sounds, Soft, Abdomen, Obese. No: Tenderness Edema: LLE: Trace, RLE: Trace Neurological: Yes: Alert, Oriented Labs: CBC, BMP 10/28/17 06:30 10/28/17 06:30 INR, PTT INR 0.97 (0.82-1.09) 10/25/17 17:18 Problem List - Problems (1) Pneumonia Code(s): J18.9 - PNEUMONIA, UNSPECIFIED ORGANISM Qualifiers: Pneumonia type: due to unspecified organism Laterality: unspecified laterality Lung location: unspecified part of lung Qualified Code(s): J18.9 - Pneumonia, unspecified organism (2) Acute exacerbation of COPD with asthma Code(s): J44.1 - CHRONIC OBSTRUCTIVE PULMONARY DISEASE W (ACUTE) EXACERBATION; J45.901 - UNSPECIFIED ASTHMA WITH (ACUTE) EXACERBATION (3) CHF (congestive heart failure) Code(s): I50.9 - HEART FAILURE, UNSPECIFIED Qualifiers: (4) MGUS (monoclonal gammopathy of unknown significance) Code(s): D47.2 - MONOCLONAL GAMMOPATHY (5) Shoulder pain, left Code(s): M25.512 - PAIN IN LEFT SHOULDER Assessment/Plan Pulmonary Consult, ID consult appreciated IV abtx per ID IV steroids- to taper slowly DVT prophylaxis GI prophylaxis TO reduce IVF/ 24 hours AM labs
[2017-10-28] MEDS: ATORVASTATIN CA 20 MG TABLET (FP) PO SCH (22:41)
[2017-10-29] MEDS: NYSTATIN 500,000 UNITS/5 ML SUSPENSION PO SCH ×5 (00:30→23:20)
[2017-10-29] MEDS ORDERED: PT OWN MED DRAWER 7, Y5N ONE ×4 (01:51→18:31)
[2017-10-29] MEDS: AZTREONAM 1 GRAM SYRINGE 1 GM/10 ML DISP.SYRIN IVPUSH SCH ×3 (01:59→18:38)
[2017-10-29] MEDS: methylPREDNISolone NA SUCC 40 MG/1 ML VIAL IVPUSH SCH ×3 (02:00→18:33)
[2017-10-29] MEDS: VANCOMYCIN 1,000 MG in DEXTROSE 5%-WATER - 250 ML IVPB SCH ×2 (02:58→15:55)
[2017-10-29] MEDS: INSULIN SLIDING SCALE (NOVOLOG) 1 VIAL SQ SCH ×2 (06:03→17:42)
[2017-10-29 08:09] LABS: HEMOGLOBIN 9.9 GM/dL (10.7-15.3); MCHC 30.9 g/dl (32.0-36.0); MEAN CELL VOLUME 77.6 fl (80-96); MEAN PLT VOLUME 7.5 fl (7.5-11.1); PLATELET COUNT 314 K/MM3 (134-434); RBC 4.13 M/mm3 (3.60-5.2); RDW 19.3 % (11.6-15.6); WHITE BLOOD COUNT 16.8 K/mm3 (4.0-10.0)
[2017-10-29 08:15] LABS: ANION GAP 10 (8-16); BLOOD UREA NITROGEN 17 mg/dL (7-18); CALCIUM 8.1 mg/dL (8.5-10.1); CHLORIDE 103 mmol/L (98-107); CO2 29 mmol/L (21-32); GLUCOSE,RANDOM 169 mg/dL (74-106); POTASSIUM 3.7 mmol/L (3.5-5.1); SODIUM 142 mmol/L (136-145)
[2017-10-29 08:17] LABS: CREATININE 0.6 mg/dL (0.55-1.02)
[2017-10-29] MEDS: BUDESONIDE/FORMETEROL FUMARATE 160/4.5 mcg INHALER IH SCH ×2 (10:24→22:17)
[2017-10-29] MEDS: amLODIPine BESYLATE 5 MG TABLET (FP) PO SCH (10:24)
[2017-10-29] MEDS: DOCUSATE SODIUM 100 MG CAPSULE (FP) PO SCH ×2 (10:24→22:17)
[2017-10-29] MEDS: HEPARIN NA (PORCINE) 5,000 UNITS/ML 1ML VIAL SQ SCH ×2 (10:24→22:16)
[2017-10-29] MEDS: FUROSEMIDE 20 MG TABLET (FP) PO SCH (10:24)
--- NOTE | 2017-10-29 10:24 | PN ---
Progress Note, Physician History of Present Illness: Pt's breathing is better. Pt w/o CP, palp, abd pain, N, V. - Current Medication List Current Medications: Active Medications Albuterol/Ipratropium (Duoneb -) 1 amp NEB Q4H PRN PRN Reason: SHORTNESS OF BREATH Last Admin: 10/28/17 20:50 Dose: 1 amp Amlodipine Besylate (Norvasc -) [address] [facility] Last Admin: 10/28/17 09:20 Dose: 5 mg Atorvastatin Calcium (Lipitor -) [address] [facility] Last Admin: 10/28/17 22:41 Dose: 20 mg Budesonide/Formoterol Fumarate (Symbicort 160/4.5mcg -) [address] [facility] Last Admin: 10/28/17 23:04 Dose: 2 puff Docusate Sodium (Colace -) [address] [facility] Last Admin: 10/28/17 22:41 Dose: 100 mg Furosemide (Lasix -) [address] [facility] Heparin Sodium (Porcine) (Heparin -) 5,[address] [facility] Last Admin: 10/28/17 22:41 Dose: 5,000 unit Aztreonam (Azactam (Restricted To Id) -) 1 gm in 10 mls @ 120 mls/hr IVPUSH Q8H -IV [facility] PRN Reason: Protocol Last Admin: 10/29/17 01:59 Dose: 120 mls/hr Vancomycin HCl 1,000 mg/ (Dextrose) 250 mls @ 166.667 mls/hr IVPB Q12H [facility] Last Admin: 10/29/17 02:58 Dose: 166.667 mls/hr Insulin Aspart (Novolog Vial Sliding Scale -) 1 vial SQ BIDAC [facility] PRN Reason: Protocol Last Admin: 10/29/17 06:03 Dose: 4 units Methylprednisolone Sodium Succinate (Solu-Medrol -) 40 mg IVPUSH Q8H-IV [facility] Last Admin: 10/29/17 02:00 Dose: 40 mg Nystatin (Nystatin Oral Suspension -) 500,[address] [facility] Last Admin: 10/29/17 05:33 Dose: 500,000 units Pantoprazole Sodium (Protonix -) [address] [facility] Last Admin: 10/28/17 09:20 Dose: 40 mg Theophylline 200 mg/ (Theophylline 100 mg) [address] [facility] Last Admin: 10/28/17 09:23 Dose: 300 mg Tiotropium [place] (Spiriva -) [address] [facility] Last Admin: 10/28/17 09:17 Dose: 1 puff - Objective Vital Signs: Vital Signs Temperature 98.9 F 10/29/17 10:00 Pulse Rate 100 H 10/29/17 10:00 Respiratory Rate 24 10/29/17 10:00 Blood Pressure 132/71 10/29/17 10:00 O2 Sat by Pulse Oximetry (%) 97 10/28/17 21:00 Constitutional: Yes: No Distress, Calm Cardiovascular: Yes: Regular Rate and Rhythm, S1, S2 Respiratory: Yes: Regular, Rhonchi, Wheezes Gastrointestinal: Yes: Normal Bowel Sounds, Soft. No: Tenderness Edema: No Neurological: Yes: Alert, Oriented Labs: CBC, BMP 10/29/17 07:02 10/29/17 07:02 INR, PTT INR 0.97 (0.82-1.09) 10/25/17 17:18 Problem List - Problems (1) Pneumonia Code(s): J18.9 - PNEUMONIA, UNSPECIFIED ORGANISM Qualifiers: Pneumonia type: due to unspecified organism Laterality: unspecified laterality Lung location: unspecified part of lung Qualified Code(s): J18.9 - Pneumonia, unspecified organism (2) Acute exacerbation of COPD with asthma Code(s): J44.1 - CHRONIC OBSTRUCTIVE PULMONARY DISEASE W (ACUTE) EXACERBATION; J45.901 - UNSPECIFIED ASTHMA WITH (ACUTE) EXACERBATION (3) CHF (congestive heart failure) Code(s): I50.9 - HEART FAILURE, UNSPECIFIED Qualifiers: (4) MGUS (monoclonal gammopathy of unknown significance) Code(s): D47.2 - MONOCLONAL GAMMOPATHY (5) Shoulder pain, left Code(s): M25.512 - PAIN IN LEFT SHOULDER Assessment/Plan Pulmonary Consult, ID consult appreciated IV abtx per ID IV steroids- to taper slowly DVT prophylaxis GI prophylaxis To DC IVF. I encouraged pt to walk in the hallway. Xanax PRN for anxiety AM labs
[2017-10-29] MEDS: TIOTROPIUM BROMIDE 18 MCG/INH (DEVICE W/ 5 CAPSULES) IH SCH (10:25)
[2017-10-29] MEDS: PANTOPRAZOLE 40 MG TABLET (FP) PO SCH (10:25)
[2017-10-29] MEDS: THEOPHYLLINE ANHYDROUS PO SCH (10:38)
--- NOTE | 2017-10-29 10:52 | PN ---
Progress Note (short form) - Note Progress Note: Chief Complaint: sob, cough History of Present Illness: sob/wheezing persists but better. no cp, palps, dizziness. Current Medications Generic Name Dose Route Start Last Admin Trade Name Freq PRN Reason Stop Dose Admin Albuterol/Ipratropium 1 amp 10/26/17 01:42 10/28/17 20:50 Duoneb - NEB 1 amp Q4H PRN Administration SHORTNESS OF BREATH Amlodipine Besylate 5 mg 10/25/17 19:00 10/29/17 10:24 Norvasc - PO 5 mg DAILY [facility] Administration Atorvastatin Calcium 20 mg 10/25/17 22:00 10/28/17 22:41 Lipitor - PO 20 mg HS [facility] Administration Budesonide/Formoterol Fumarate 2 puff 10/25/17 22:00 10/29/17 10:24 Symbicort 160/4.5mcg - IH 2 puff BID [facility] Administration Docusate Sodium 100 mg 10/27/17 12:00 10/29/17 10:24 Colace - PO 100 mg BID [facility] Administration Furosemide 20 mg 10/29/17 10:00 10/29/17 10:24 Lasix - PO 20 mg DAILY [facility] Administration Heparin Sodium (Porcine) 5,000 unit 10/25/17 22:00 10/29/17 10:24 Heparin - SQ 5,000 unit BID [facility] Administration Aztreonam 1 gm in 10 mls @ 120 mls/hr 10/26/17 11:45 10/29/17 10:24 Azactam (Restricted To Id) - IVPUSH 120 mls/hr Q8H-IV [facility] Administration Protocol Vancomycin HCl 1,000 mg/ 250 mls @ 166.667 mls/hr 10/27/17 03:00 10/29/17 02: 58 Dextrose IVPB 166.667 mls/hr Q12H [facility] Administration Insulin Aspart 1 vial 10/28/17 16:30 10/29/17 06:03 Novolog Vial Sliding Scale - SQ 4 units BIDAC [facility] Administration Protocol Methylprednisolone Sodium Succinate 40 mg 10/27/17 18:00 10/29/17 10:24 Solu-Medrol - IVPUSH 40 mg Q8H-IV [facility] Administration Nystatin 500,000 units 10/26/17 18:00 10/29/17 05:33 Nystatin Oral Suspension - PO 500,000 units Q6HPO [facility] Administration Pantoprazole Sodium 40 mg 10/26/17 17:45 10/29/17 10:25 Protonix - PO 40 mg DAILY [facility] Administration Theophylline 200 mg/ 300 mg 10/26/17 10:00 10/29/17 10:38 Theophylline 100 mg PO 300 mg DAILY [facility] Administration Tiotropium [place] 1 puff 10/26/17 10:00 10/29/17 10:25 Spiriva - IH 1 puff DAILY [facility] Administration Vital Signs Period Temp Pulse Resp BP Sys/Stringer Pulse Ox Last 24 Hr 97.8 F-98.9 F 84-100 20-24 132-152/71-95 97 Constitutional: Yes: Well Nourished, No Distress Eyes: No: Sclera Icterus Neck: No: Decreased ROM. no jvd. Respiratory: Yes: Wheezes. diminished air movement. Normal effort. No: Accessory Muscle Use, Rales Gastrointestinal: Yes: Normal Bowel Sounds. No: Distention, Hepatomegaly, Palpable Mass, Tenderness Cardiovascular: Yes: Regular Rate and Rhythm JVD: No Heart Sounds: Yes: S1, S2. No: Gallop Murmur: No: Systolic Murmur, Diastolic Murmur Extremities: No: Cold, Cyanosis Edema: trace le edema Integumentary: No: Jaundice Neurological: Yes: Alert, Oriented (x3) Psychiatric: No: Agitated CBC, BMP 10/29/17 07:02 10/29/17 07:02 ekg: sinus tach, no ischemic changes. 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 similar to priors. by my review, LLL opacity in area of prior atelectasis/ consolidation is slightly more prominent than on priors. echo 10/2017: tds. nl lv size/fn. rv not well visualized. 1+ mac. small pericardial effusion < 1 cm. Echo 02/2017: tds. nl lv/rv. valves not well seen but no sig ab. dobutamine stress 02/2017: suboptimal, target HR not achieved. occ pvc's seen. diaphragmatic attenuation, no ischemica. EF 73% Assessment/Plan 62yo with h/o new HTN (recently started on norvasc), LE edema/? diastolic dysfunction/chf, copd on home O2, prior PTX needing VATS, MGUS, peripheral neuropathy, GERD, hypothyroid and recent rotator cuff surgery who p/w progressive sob. sob, copd: -no clinical signs or sx's of pulm edema -current etiology of sx's seems to be pulmonary > cardiac, mgm't per pmd/pulm -ce's neg x 3. ekg without ischemic changes . no anginal sx's. no signs of acs. HTN: -con't home norvasc HPL: - on statin. chronic diastolic chf, le venous insuff: -no signs pulm edema or acute chf -bnp low -was on lasix 20 qd for le edema at home, held while on ivfs but now with some worsening le edema so will dc ivfs and resume po lasix.
[2017-10-29] MEDS: ALBUTEROL SO4 2.5/IPRATROPIUM 0.5 INH SOL 3 ML VIAL.NEB. NEB PRN ×3 (12:37→21:20)
[2017-10-29] MEDS: ALPRAZolam 0.25 MG TABLET PO PRN (12:56)
--- NOTE | 2017-10-29 14:59 | PN ---
Progress Note (short form) - Note Progress Note: sputum clearing still wheezing but more comfortable no fevers Vital Signs Period Temp Pulse Resp BP Sys/Stringer Pulse Ox Last 24 Hr 97.8 F-98.9 F 84-100 20-24 132-152/71-95 97 cor-rrr lungs bilatereal wheeze abd soft,nt ext no edema left arm in sling CBC, BMP 10/29/17 07:02 10/29/17 07:02 cxray left base infiltrate Microbiology 10/25/17 17:10 Blood - Peripheral Venous Blood Culture - Preliminary NO GROWTH OBTAINED AFTER 72 HOURS, INCUBATION TO CONTINUE FOR 2 DAYS. 10/25/17 17:10 Blood - Peripheral Venous Blood Culture - Preliminary NO GROWTH OBTAINED AFTER 72 HOURS, INCUBATION TO CONTINUE FOR 2 DAYS. 10/26/17 13:00 Sputum - Expectorated Gram Stain - Final 10/26/17 13:00 Sputum - Expectorated Sputum Culture - Final NORMAL RESPIRATORY LIVIA 10/26/17 23:58 Urine - Urine Clean Catch Urine Culture - Final NO GROWTH OBTAINED 10/26/17 16:30 Nasopharyngeal Swab Respiratory Syncytial Virus Ag - Final 10/25/17 17:10 Nasopharyngeal Swab Influenza Types A,B Antigen (GEORGINA) - Final 10/25/17 17:10 Nasopharyngeal Swab - Final a/p pneumonia COPD improving pen/quinolone allergies continue vancomycin/azactam day #3 Problem List - Problems (1) Acute exacerbation of COPD with asthma Code(s): J44.1 - CHRONIC OBSTRUCTIVE PULMONARY DISEASE W (ACUTE) EXACERBATION; J45.901 - UNSPECIFIED ASTHMA WITH (ACUTE) EXACERBATION (2) Bronchitis Code(s): J40 - BRONCHITIS, NOT SPECIFIED ACUTE OR CHRONIC (3) Pneumonia Code(s): J18.9 - PNEUMONIA, UNSPECIFIED ORGANISM Qualifiers: Pneumonia type: due to unspecified organism Laterality: unspecified laterality Lung location: unspecified part of lung Qualified Code(s): J18.9 - Pneumonia, unspecified organism (4) Penicillin allergy Code(s): Z88.0 - ALLERGY STATUS TO PENICILLIN (5) Obesity (BMI 30.0-34.9) Code(s): E66.9 - OBESITY, UNSPECIFIED
--- NOTE | 2017-10-29 15:10 | PN ---
Progress Note, Physician Chief Complaint: COUGH/WHEEZE CONTINUES History of Present Illness: WELL KNOWN BY ME FROM OUTPATIENT VISITS - Current Medication List Current Medications: Active Medications Albuterol/Ipratropium (Duoneb -) 1 amp NEB Q4H PRN PRN Reason: SHORTNESS OF BREATH Last Admin: 10/29/17 12:37 Dose: 1 amp Alprazolam (Xanax -) 0.25 mg PO Q6H PRN PRN Reason: ANXIETY Last Admin: 10/29/17 12:56 Dose: 0.25 mg Amlodipine Besylate (Norvasc -) 5 mg PO DAILY [facility] Last Admin: 10/29/17 10:24 Dose: 5 mg Atorvastatin Calcium (Lipitor -) 20 mg PO HS [facility] Last Admin: 10/28/17 22:41 Dose: 20 mg Budesonide/Formoterol Fumarate (Symbicort 160/4.5mcg -) 2 puff IH BID [facility] Last Admin: 10/29/17 10:24 Dose: 2 puff Docusate Sodium (Colace -) 100 mg PO BID [facility] Last Admin: 10/29/17 10:24 Dose: 100 mg Furosemide (Lasix -) 20 mg PO DAILY [facility] Last Admin: 10/29/17 10:24 Dose: 20 mg Heparin Sodium (Porcine) (Heparin -) 5,000 unit SQ BID [facility] Last Admin: 10/29/17 10:24 Dose: 5,000 unit Aztreonam (Azactam (Restricted To Id) -) 1 gm in 10 mls @ 120 mls/hr IVPUSH Q8H -IV [facility] PRN Reason: Protocol Last Admin: 10/29/17 10:24 Dose: 120 mls/hr Vancomycin HCl 1,000 mg/ (Dextrose) 250 mls @ 166.667 mls/hr IVPB Q12H [facility] Last Admin: 10/29/17 02:58 Dose: 166.667 mls/hr Insulin Aspart (Novolog Vial Sliding Scale -) 1 vial SQ BIDAC [facility] PRN Reason: Protocol Last Admin: 10/29/17 06:03 Dose: 4 units Methylprednisolone Sodium Succinate (Solu-Medrol -) 40 mg IVPUSH Q8H-IV [facility] Last Admin: 10/29/17 10:24 Dose: 40 mg Nystatin (Nystatin Oral Suspension -) 500,000 units PO Q6HPO [facility] Last Admin: 10/29/17 11:57 Dose: 500,000 units Pantoprazole Sodium (Protonix -) 40 mg PO DAILY [facility] Last Admin: 10/29/17 10:25 Dose: 40 mg Theophylline 200 mg/ (Theophylline 100 mg) 300 mg PO DAILY [facility] Last Admin: 10/29/17 10:38 Dose: 300 mg Tiotropium [place] (Spiriva -) 1 puff IH DAILY [facility] Last Admin: 10/29/17 10:25 Dose: 1 puff - Objective Vital Signs: Vital Signs Temperature 97.9 F 10/29/17 15:00 Pulse Rate 106 H 10/29/17 15:00 Respiratory Rate 24 10/29/17 15:00 Blood Pressure 146/73 10/29/17 15:00 O2 Sat by Pulse Oximetry (%) 97 10/28/17 21:00 Constitutional: Yes: Calm Eyes: Yes: EOM Intact HENT: Yes: Normocephalic, Other (CUSHINOID) Neck: Yes: Trachea Midline Cardiovascular: Yes: Regular Rate and Rhythm, S1, S2 Respiratory: Yes: Wheezes Gastrointestinal: Yes: Abdomen, Obese Edema: No Neurological: Yes: Alert Labs: CBC, BMP 10/29/17 07:02 10/29/17 07:02 INR, PTT INR 0.97 (0.82-1.09) 10/25/17 17:18 - ....Imaging Chest X-ray: Report Reviewed, Image Reviewed EKG: Report Reviewed, Image Reviewed Problem List - Problems (1) Acute on chronic respiratory failure with hypoxia Code(s): J96.21 - ACUTE AND CHRONIC RESPIRATORY FAILURE WITH HYPOXIA (2) COPD (chronic obstructive pulmonary disease) Code(s): J44.9 - CHRONIC OBSTRUCTIVE PULMONARY DISEASE, UNSPECIFIED Qualifiers: COPD type: unspecified COPD Qualified Code(s): J44.9 - Chronic obstructive pulmonary disease, unspecified (3) Lactic acidosis Code(s): E87.2 - ACIDOSIS (4) Pneumonia Code(s): J18.9 - PNEUMONIA, UNSPECIFIED ORGANISM Qualifiers: Pneumonia type: due to unspecified organism Laterality: unspecified laterality Lung location: unspecified part of lung Qualified Code(s): J18.9 - Pneumonia, unspecified organism (5) Acute exacerbation of COPD with asthma Code(s): J44.1 - CHRONIC OBSTRUCTIVE PULMONARY DISEASE W (ACUTE) EXACERBATION; J45.901 - UNSPECIFIED ASTHMA WITH (ACUTE) EXACERBATION (6) Asthma Code(s): J45.909 - UNSPECIFIED ASTHMA, UNCOMPLICATED Qualifiers: Asthma severity: moderate Asthma persistence: persistent Asthma complication type: with acute exacerbation Qualified Code(s): J45.41 - Moderate persistent asthma with (acute) exacerbation Assessment/Plan IMP ACUTE ON CHRONIC HYPOXEMIC RESPIRATORY FAILURE CHRONIC PERSISTENT ASTHMA WITH ACUTE EXACERBATION DIASTOLIC HF MGUS PERIPHERAL NEUROPATHY PLAN IV STEROIDS INHALED BRONCHODILATORS O2 THEOPHYLLINE MONITOR PEAK FLOW ABX PER LOU MARSH MD
[2017-10-29] MEDS ORDERED: INSULIN (NOVOLOG) ASPART 100 UNITS/ML 10ML VIAL ONE (17:46)
[2017-10-29] MEDS: ATORVASTATIN CA 20 MG TABLET (FP) PO SCH (22:17)
[2017-10-30] MEDS: AZTREONAM 1 GRAM SYRINGE 1 GM/10 ML DISP.SYRIN IVPUSH SCH ×2 (02:07→09:30)
[2017-10-30] MEDS: VANCOMYCIN 1,000 MG in DEXTROSE 5%-WATER - 250 ML IVPB SCH (02:07)
[2017-10-30] MEDS: methylPREDNISolone NA SUCC 40 MG/1 ML VIAL IVPUSH SCH ×3 (02:07→17:29)
[2017-10-30] MEDS: NYSTATIN 500,000 UNITS/5 ML SUSPENSION PO SCH ×4 (06:13→23:06)
[2017-10-30] MEDS: INSULIN SLIDING SCALE (NOVOLOG) 1 VIAL SQ SCH ×2 (06:14→17:35)
[2017-10-30] MEDS ORDERED: PT OWN MED DRAWER 7, Y5N ONE (09:15)
[2017-10-30] MEDS: TIOTROPIUM BROMIDE 18 MCG/INH (DEVICE W/ 5 CAPSULES) IH SCH (09:29)
[2017-10-30] MEDS: BUDESONIDE/FORMETEROL FUMARATE 160/4.5 mcg INHALER IH SCH ×2 (09:29→21:58)
[2017-10-30] MEDS: amLODIPine BESYLATE 5 MG TABLET (FP) PO SCH (09:30)
[2017-10-30] MEDS: HEPARIN NA (PORCINE) 5,000 UNITS/ML 1ML VIAL SQ SCH ×2 (09:30→21:59)
[2017-10-30] MEDS: DOCUSATE SODIUM 100 MG CAPSULE (FP) PO SCH ×2 (09:30→21:58)
[2017-10-30] MEDS: FUROSEMIDE 20 MG TABLET (FP) PO SCH (09:30)
[2017-10-30] MEDS: PANTOPRAZOLE 40 MG TABLET (FP) PO SCH (09:30)
[2017-10-30] MEDS: THEOPHYLLINE ANHYDROUS PO SCH (09:31)
--- NOTE | 2017-10-30 09:57 | PN ---
Progress Note, Physician Chief Complaint: ID Definitely feeling better - Current Medication List Current Medications: Active Medications Albuterol/Ipratropium (Duoneb -) 1 amp NEB Q4H PRN PRN Reason: SHORTNESS OF BREATH Last Admin: 10/29/17 21:20 Dose: 1 amp Alprazolam (Xanax -) 0.25 mg PO Q6H PRN PRN Reason: ANXIETY Last Admin: 10/29/17 12:56 Dose: 0.25 mg Amlodipine Besylate (Norvasc -) 5 mg PO DAILY [facility] Last Admin: 10/30/17 09:30 Dose: 5 mg Atorvastatin Calcium (Lipitor -) 20 mg PO HS [facility] Last Admin: 10/29/17 22:17 Dose: 20 mg Budesonide/Formoterol Fumarate (Symbicort 160/4.5mcg -) 2 puff IH BID [facility] Last Admin: 10/30/17 09:29 Dose: 2 puff Docusate Sodium (Colace -) 100 mg PO BID [facility] Last Admin: 10/30/17 09:30 Dose: 100 mg Furosemide (Lasix -) 20 mg PO DAILY [facility] Last Admin: 10/30/17 09:30 Dose: 20 mg Heparin Sodium (Porcine) (Heparin -) 5,000 unit SQ BID [facility] Last Admin: 10/30/17 09:30 Dose: 5,000 unit Aztreonam (Azactam (Restricted To Id) -) 1 gm in 10 mls @ 120 mls/hr IVPUSH Q8H -IV [facility] PRN Reason: Protocol Last Admin: 10/30/17 09:30 Dose: 120 mls/hr Vancomycin HCl 1,000 mg/ (Dextrose) 250 mls @ 166.667 mls/hr IVPB Q12H [facility] Last Admin: 10/30/17 02:07 Dose: 166.667 mls/hr Insulin Aspart (Novolog Vial Sliding Scale -) 1 vial SQ BIDAC [facility] PRN Reason: Protocol Last Admin: 10/30/17 06:14 Dose: 4 units Methylprednisolone Sodium Succinate (Solu-Medrol -) 40 mg IVPUSH Q8H-IV [facility] Last Admin: 10/30/17 09:30 Dose: 40 mg Nystatin (Nystatin Oral Suspension -) 500,000 units PO Q6HPO [facility] Last Admin: 10/30/17 06:13 Dose: 500,000 units Pantoprazole Sodium (Protonix -) 40 mg PO DAILY [facility] Last Admin: 10/30/17 09:30 Dose: 40 mg Theophylline 200 mg/ (Theophylline 100 mg) 300 mg PO DAILY [facility] Last Admin: 10/30/17 09:31 Dose: 300 mg Tiotropium [place] (Spiriva -) 1 puff IH DAILY [facility] Last Admin: 10/30/17 09:29 Dose: 1 puff - Objective Vital Signs: Vital Signs Temperature 98.8 F 10/30/17 05:28 Pulse Rate 88 10/30/17 05:28 Respiratory Rate 20 10/30/17 05:28 Blood Pressure 142/78 10/30/17 05:28 O2 Sat by Pulse Oximetry (%) 97 10/29/17 23:00 HENT: Yes: WNL, Atraumatic Neck: Yes: WNL, Supple Cardiovascular: Yes: Regular Rate and Rhythm, S1, S2. No: Murmur Respiratory: Yes: WNL, Regular, CTA Bilaterally. No: Rhonchi, Wheezes Gastrointestinal: Yes: WNL, Normal Bowel Sounds, Soft Labs: CBC, BMP 10/29/17 07:02 10/29/17 07:02 INR, PTT INR 0.97 (0.82-1.09) 10/25/17 17:18 Assessment/Plan Microbiology 10/26/17 23:58 Urine - Urine Clean Catch Urine Culture - Final NO GROWTH OBTAINED 10/26/17 13:00 Sputum - Expectorated Gram Stain - Final 10/26/17 13:00 Sputum - Expectorated Sputum Culture - Final NORMAL RESPIRATORY LIVIA 10/25/17 17:10 Blood - Peripheral Venous Blood Culture - Preliminary NO GROWTH OBTAINED AFTER 96 HOURS, INCUBATION TO CONTINUE FOR 1 DAYS. Laboratory Tests 10/29/17 10/29/17 07:02 07:02 WBC 16.8 H Hgb 9.9 L Hct 32.0 L Plt Count 314 Creatinine 0.6 Assessment Received treatment for pneumonia Plan Will stop antibiotics today Jocelin CHAUHAN
[2017-10-30] MEDS: ALBUTEROL SO4 2.5/IPRATROPIUM 0.5 INH SOL 3 ML VIAL.NEB. NEB PRN ×2 (10:00→20:11)
--- NOTE | 2017-10-30 10:26 | PN ---
Progress Note, Physician History of Present Illness: Pt's breathing is the same, walked yesterday in the hallway and felt weak, not SOB. Pt w/o CP, palp, abd pain, N, V. Pt is c/o insomnia, asking for medication. - Current Medication List Current Medications: Active Medications Albuterol/Ipratropium (Duoneb -) 1 amp NEB Q4H PRN PRN Reason: SHORTNESS OF BREATH Last Admin: 10/29/17 21:20 Dose: 1 amp Alprazolam (Xanax -) 0.25 mg PO Q6H PRN PRN Reason: ANXIETY Last Admin: 10/29/17 12:56 Dose: 0.25 mg Amlodipine Besylate (Norvasc -) 5 mg PO DAILY [facility] Last Admin: 10/30/17 09:30 Dose: 5 mg Atorvastatin Calcium (Lipitor -) 20 mg PO HS [facility] Last Admin: 10/29/17 22:17 Dose: 20 mg Budesonide/Formoterol Fumarate (Symbicort 160/4.5mcg -) 2 puff IH BID [facility] Last Admin: 10/30/17 09:29 Dose: 2 puff Docusate Sodium (Colace -) 100 mg PO BID [facility] Last Admin: 10/30/17 09:30 Dose: 100 mg Furosemide (Lasix -) 20 mg PO DAILY [facility] Last Admin: 10/30/17 09:30 Dose: 20 mg Heparin Sodium (Porcine) (Heparin -) 5,000 unit SQ BID [facility] Last Admin: 10/30/17 09:30 Dose: 5,000 unit Insulin Aspart (Novolog Vial Sliding Scale -) 1 vial SQ BIDAC [facility] PRN Reason: Protocol Last Admin: 10/30/17 06:14 Dose: 4 units Methylprednisolone Sodium Succinate (Solu-Medrol -) 40 mg IVPUSH Q8H-IV [facility] Last Admin: 10/30/17 09:30 Dose: 40 mg Nystatin (Nystatin Oral Suspension -) 500,000 units PO Q6HPO [facility] Last Admin: 10/30/17 06:13 Dose: 500,000 units Pantoprazole Sodium (Protonix -) 40 mg PO DAILY [facility] Last Admin: 10/30/17 09:30 Dose: 40 mg Ramelteon (Rozerem) 8 mg PO HS [facility] Theophylline 200 mg/ (Theophylline 100 mg) 300 mg PO DAILY [facility] Last Admin: 10/30/17 09:31 Dose: 300 mg Tiotropium [place] (Spiriva -) 1 puff IH DAILY [facility] Last Admin: 10/30/17 09:29 Dose: 1 puff - Objective Vital Signs: Vital Signs Temperature 98.5 F 10/30/17 09:25 Pulse Rate 104 H 10/30/17 09:25 Respiratory Rate 20 10/30/17 09:25 Blood Pressure 129/72 10/30/17 09:25 O2 Sat by Pulse Oximetry (%) 97 10/29/17 23:00 Constitutional: Yes: No Distress, Calm Cardiovascular: Yes: Regular Rate and Rhythm, S1, S2 Respiratory: Yes: Regular, Rhonchi, Wheezes Gastrointestinal: Yes: Normal Bowel Sounds, Soft. No: Tenderness Edema: Yes (feet) Neurological: Yes: Alert, Oriented Labs: CBC, BMP 10/29/17 07:02 10/29/17 07:02 INR, PTT INR 0.97 (0.82-1.09) 10/25/17 17:18 Problem List - Problems (1) Pneumonia Code(s): J18.9 - PNEUMONIA, UNSPECIFIED ORGANISM Qualifiers: Pneumonia type: due to unspecified organism Laterality: unspecified laterality Lung location: unspecified part of lung Qualified Code(s): J18.9 - Pneumonia, unspecified organism (2) Acute exacerbation of COPD with asthma Code(s): J44.1 - CHRONIC OBSTRUCTIVE PULMONARY DISEASE W (ACUTE) EXACERBATION; J45.901 - UNSPECIFIED ASTHMA WITH (ACUTE) EXACERBATION (3) CHF (congestive heart failure) Code(s): I50.9 - HEART FAILURE, UNSPECIFIED Qualifiers: (4) MGUS (monoclonal gammopathy of unknown significance) Code(s): D47.2 - MONOCLONAL GAMMOPATHY (5) Shoulder pain, left Code(s): M25.512 - PAIN IN LEFT SHOULDER (6) Insomnia Assessment/Plan: probable due to steroids Code(s): G47.00 - INSOMNIA, UNSPECIFIED Assessment/Plan Pulmonary Consult, ID consult appreciated IV abtx per ID IV steroids- to taper slowly; case was d/w Dr. James DVT prophylaxis GI prophylaxis To DC IVF. I encouraged pt to walk in the hallway. Xanax PRN for anxiety. Rozerem for insomnia AM labs
--- NOTE | 2017-10-30 10:39 | PN ---
Progress Note, Physician Chief Complaint: COUGH/WHEEZE IMPROVED History of Present Illness: WELL KNOWN BY ME FROM OUTPATIENT VISITS - Current Medication List Current Medications: Active Medications Albuterol/Ipratropium (Duoneb -) 1 amp NEB Q4H PRN PRN Reason: SHORTNESS OF BREATH Last Admin: 10/29/17 21:20 Dose: 1 amp Alprazolam (Xanax -) 0.25 mg PO Q6H PRN PRN Reason: ANXIETY Last Admin: 10/29/17 12:56 Dose: 0.25 mg Amlodipine Besylate (Norvasc -) 5 mg PO DAILY [facility] Last Admin: 10/30/17 09:30 Dose: 5 mg Atorvastatin Calcium (Lipitor -) 20 mg PO HS [facility] Last Admin: 10/29/17 22:17 Dose: 20 mg Budesonide/Formoterol Fumarate (Symbicort 160/4.5mcg -) 2 puff IH BID [facility] Last Admin: 10/30/17 09:29 Dose: 2 puff Docusate Sodium (Colace -) 100 mg PO BID [facility] Last Admin: 10/30/17 09:30 Dose: 100 mg Furosemide (Lasix -) 20 mg PO DAILY [facility] Last Admin: 10/30/17 09:30 Dose: 20 mg Heparin Sodium (Porcine) (Heparin -) 5,000 unit SQ BID [facility] Last Admin: 10/30/17 09:30 Dose: 5,000 unit Insulin Aspart (Novolog Vial Sliding Scale -) 1 vial SQ BIDAC [facility] PRN Reason: Protocol Last Admin: 10/30/17 06:14 Dose: 4 units Methylprednisolone Sodium Succinate (Solu-Medrol -) 20 mg IVPUSH Q8H-IV [facility] Nystatin (Nystatin Oral Suspension -) 500,000 units PO Q6HPO [facility] Last Admin: 10/30/17 06:13 Dose: 500,000 units Pantoprazole Sodium (Protonix -) 40 mg PO DAILY [facility] Last Admin: 10/30/17 09:30 Dose: 40 mg Ramelteon (Rozerem) 8 mg PO HS [facility] Theophylline 200 mg/ (Theophylline 100 mg) 300 mg PO DAILY [facility] Last Admin: 10/30/17 09:31 Dose: 300 mg Tiotropium [place] (Spiriva -) 1 puff IH DAILY [facility] Last Admin: 10/30/17 09:29 Dose: 1 puff - Objective Vital Signs: Vital Signs Temperature 98.5 F 10/30/17 09:25 Pulse Rate 104 H 10/30/17 09:25 Respiratory Rate 20 10/30/17 09:25 Blood Pressure 129/72 10/30/17 09:25 O2 Sat by Pulse Oximetry (%) 97 10/29/17 23:00 Constitutional: Yes: Well Nourished Eyes: Yes: EOM Intact HENT: Yes: Normocephalic, Other (CUSHINOID) Neck: Yes: Trachea Midline Cardiovascular: Yes: S1, S2 Respiratory: Yes: Wheezes (BILATERALLY IMPROVED) Gastrointestinal: Yes: Normal Bowel Sounds Edema: No Integumentary: Yes: Bruising Labs: CBC, BMP 10/29/17 07:02 10/29/17 07:02 INR, PTT INR 0.97 (0.82-1.09) 10/25/17 17:18 REST REVIEWED - ....Imaging Chest X-ray: Report Reviewed, Image Reviewed EKG: Report Reviewed, Image Reviewed Problem List - Problems (1) Acute on chronic respiratory failure with hypoxia Code(s): J96.21 - ACUTE AND CHRONIC RESPIRATORY FAILURE WITH HYPOXIA (2) COPD (chronic obstructive pulmonary disease) Code(s): J44.9 - CHRONIC OBSTRUCTIVE PULMONARY DISEASE, UNSPECIFIED Qualifiers: COPD type: unspecified COPD Qualified Code(s): J44.9 - Chronic obstructive pulmonary disease, unspecified (3) Lactic acidosis Code(s): E87.2 - ACIDOSIS (4) Pneumonia Code(s): J18.9 - PNEUMONIA, UNSPECIFIED ORGANISM Qualifiers: Pneumonia type: due to unspecified organism Laterality: unspecified laterality Lung location: unspecified part of lung Qualified Code(s): J18.9 - Pneumonia, unspecified organism (5) Acute exacerbation of COPD with asthma Code(s): J44.1 - CHRONIC OBSTRUCTIVE PULMONARY DISEASE W (ACUTE) EXACERBATION; J45.901 - UNSPECIFIED ASTHMA WITH (ACUTE) EXACERBATION (6) Asthma Code(s): J45.909 - UNSPECIFIED ASTHMA, UNCOMPLICATED Qualifiers: Asthma severity: moderate Asthma persistence: persistent Asthma complication type: with acute exacerbation Qualified Code(s): J45.41 - Moderate persistent asthma with (acute) exacerbation Assessment/Plan IMP ACUTE ON CHRONIC HYPOXEMIC RESPIRATORY FAILURE CHRONIC PERSISTENT ASTHMA WITH ACUTE EXACERBATION DIASTOLIC HF MGUS PERIPHERAL NEUROPATHY PLAN IV STEROIDS REDUCED INHALED BRONCHODILATORS O2 THEOPHYLLINE MONITOR PEAK FLOW ABX DISCONTINUED PER LOU MARSH MD
[2017-10-30 11:45] LABS: ANION GAP 9 (8-16); BLOOD UREA NITROGEN 22 mg/dL (7-18); CALCIUM 8.6 mg/dL (8.5-10.1); CHLORIDE 99 mmol/L (98-107); CO2 32 mmol/L (21-32); CREATININE 0.7 mg/dL (0.55-1.02); GLUCOSE,RANDOM 182 mg/dL (74-106); POTASSIUM 3.8 mmol/L (3.5-5.1); SODIUM 140 mmol/L (136-145)
[2017-10-30] MEDS: ALPRAZolam 0.25 MG TABLET PO PRN (20:21)
[2017-10-30] MEDS: RAMELTEON 8 MG TABLET PO SCH (21:58)
[2017-10-30] MEDS: ATORVASTATIN CA 20 MG TABLET (FP) PO SCH (21:58)
--- NOTE | 2017-10-30 22:17 | CONSULT ---
Consult - text type - Consultation Consultation Note: PATIENT WELL-KNOWN TO ME S/P LEFT ROTATOR CUFF REPAIR 5 WEEKS AGO INCISION CLEAN AND DRY NVI IMP: DOING WELL PLAN: DC SHOULDER IMMOBILIZER BEGIN AROM I WILL ARRANGE OUTPATIENT PT ONCE DCed
[2017-10-31] MEDS: methylPREDNISolone NA SUCC 40 MG/1 ML VIAL IVPUSH SCH ×3 (01:42→17:40)
[2017-10-31] MEDS: NYSTATIN 500,000 UNITS/5 ML SUSPENSION PO SCH ×4 (06:35→23:18)
[2017-10-31] MEDS ORDERED: INSULIN (NOVOLOG) ASPART 100 UNITS/ML 10ML VIAL ONE ×3 (06:37→17:38)
[2017-10-31] MEDS: INSULIN SLIDING SCALE (NOVOLOG) 1 VIAL SQ SCH ×2 (06:39→17:39)
[2017-10-31 08:04] LABS: HEMATOCRIT 34.4 % (32.4-45.2); HEMOGLOBIN 10.8 GM/dL (10.7-15.3); MCH 24.4 pg (25.7-33.7); MCHC 31.3 g/dl (32.0-36.0); MEAN CELL VOLUME 77.9 fl (80-96); MEAN PLT VOLUME 7.5 fl (7.5-11.1); PLATELET COUNT 362 K/MM3 (134-434); RBC 4.42 M/mm3 (3.60-5.2); RDW 19.9 % (11.6-15.6); WHITE BLOOD COUNT 17.4 K/mm3 (4.0-10.0)
[2017-10-31 08:40] LABS: ALK PHOS 45 U/L (45-117); ANION GAP 10 (8-16); BILIRUBIN,TOTAL 0.2 mg/dL (0.2-1.0); BLOOD UREA NITROGEN 23 mg/dL (7-18); CALCIUM 8.1 mg/dL (8.5-10.1); CHLORIDE 103 mmol/L (98-107); CO2 26 mmol/L (21-32); CREATININE 0.7 mg/dL (0.55-1.02); GLUCOSE,RANDOM 176 mg/dL (74-106); POTASSIUM 3.9 mmol/L (3.5-5.1); SGOT/AST 12 U/L (15-37); SGPT/ALT 38 U/L (12-78); SODIUM 139 mmol/L (136-145); TOT PROT 6.3 g/dl (6.4-8.2)
[2017-10-31] MEDS ORDERED: PT OWN MED DRAWER 7, Y5N ONE ×3 (09:53→13:55)
[2017-10-31] MEDS: amLODIPine BESYLATE 5 MG TABLET (FP) PO SCH (09:54)
[2017-10-31] MEDS: DOCUSATE SODIUM 100 MG CAPSULE (FP) PO SCH ×2 (09:54→21:53)
[2017-10-31] MEDS: FUROSEMIDE 20 MG TABLET (FP) PO SCH (09:54)
[2017-10-31] MEDS: HEPARIN NA (PORCINE) 5,000 UNITS/ML 1ML VIAL SQ SCH ×2 (09:54→21:53)
[2017-10-31] MEDS: PANTOPRAZOLE 40 MG TABLET (FP) PO SCH (09:54)
[2017-10-31] MEDS: BUDESONIDE/FORMETEROL FUMARATE 160/4.5 mcg INHALER IH SCH ×2 (09:55→21:53)
[2017-10-31] MEDS ORDERED: SODIUM CHLORIDE 500 ML IV ONE (10:00)
[2017-10-31] MEDS: THEOPHYLLINE ANHYDROUS PO SCH (10:00)
--- NOTE | 2017-10-31 11:34 | PN ---
Progress Note, Physician Chief Complaint: COUGH/WHEEZE IMPROVED History of Present Illness: WELL KNOWN BY ME FROM OUTPATIENT VISITS - Current Medication List Current Medications: Active Medications Alprazolam (Xanax -) 0.25 mg PO Q6H PRN PRN Reason: ANXIETY Last Admin: 10/30/17 20:21 Dose: 0.25 mg Amlodipine Besylate (Norvasc -) 5 mg PO DAILY [facility] Last Admin: 10/31/17 09:54 Dose: 5 mg Atorvastatin Calcium (Lipitor -) 20 mg PO HS [facility] Last Admin: 10/30/17 21:58 Dose: 20 mg Budesonide/Formoterol Fumarate (Symbicort 160/4.5mcg -) 2 puff IH BID [facility] Last Admin: 10/31/17 09:55 Dose: 2 puff Docusate Sodium (Colace -) 100 mg PO BID [facility] Last Admin: 10/31/17 09:54 Dose: 100 mg Furosemide (Lasix -) 20 mg PO DAILY [facility] Last Admin: 10/31/17 09:54 Dose: 20 mg Heparin Sodium (Porcine) (Heparin -) 5,000 unit SQ BID [facility] Last Admin: 10/31/17 09:54 Dose: 5,000 unit Sodium Chloride (Normal Saline -) 500 mls @ 50 mls/hr IV ONCE ONE Stop: 10/31/17 19:59 Last Admin: 10/31/17 09:55 Dose: 50 mls/hr Insulin Aspart (Novolog Vial Sliding Scale -) 1 vial SQ BIDAC [facility] PRN Reason: Protocol Last Admin: 10/31/17 06:39 Dose: 2 units Methylprednisolone Sodium Succinate (Solu-Medrol -) 20 mg IVPUSH Q8H-IV [facility] Last Admin: 10/31/17 09:54 Dose: 20 mg Nystatin (Nystatin Oral Suspension -) 500,000 units PO Q6HPO [facility] Last Admin: 10/31/17 06:35 Dose: 500,000 units Pantoprazole Sodium (Protonix -) 40 mg PO DAILY [facility] Last Admin: 10/31/17 09:54 Dose: 40 mg Ramelteon (Rozerem) 8 mg PO HS [facility] Last Admin: 10/30/17 21:58 Dose: 8 mg Theophylline 200 mg/ (Theophylline 100 mg) 300 mg PO DAILY [facility] Last Admin: 10/30/17 09:31 Dose: 300 mg Tiotropium [place] (Spiriva -) 1 puff IH DAILY [facility] Last Admin: 10/30/17 09:29 Dose: 1 puff - Objective Vital Signs: Vital Signs Temperature 98.1 F 10/31/17 09:42 Pulse Rate 99 H 10/31/17 09:42 Respiratory Rate 20 10/31/17 09:42 Blood Pressure 126/75 10/31/17 09:42 O2 Sat by Pulse Oximetry (%) 96 10/30/17 21:00 Constitutional: Yes: Calm Eyes: Yes: EOM Intact HENT: Yes: Normocephalic Neck: Yes: Trachea Midline Cardiovascular: Yes: Regular Rate and Rhythm, S1, S2 Respiratory: Yes: Wheezes (BILATERAL MINIMAL) Gastrointestinal: Yes: Normal Bowel Sounds ...Rectal Exam: Yes: Deferred Genitourinary: Yes: WNL Edema: LLE: 1+, RLE: 1+ Neurological: Yes: Alert Psychiatric: Yes: Alert Labs: CBC, BMP 10/31/17 06:30 10/31/17 06:30 INR, PTT INR 0.97 (0.82-1.09) 10/25/17 17:18 - ....Imaging Chest X-ray: Report Reviewed, Image Reviewed Problem List - Problems (1) Acute on chronic respiratory failure with hypoxia Code(s): J96.21 - ACUTE AND CHRONIC RESPIRATORY FAILURE WITH HYPOXIA (2) COPD (chronic obstructive pulmonary disease) Code(s): J44.9 - CHRONIC OBSTRUCTIVE PULMONARY DISEASE, UNSPECIFIED Qualifiers: COPD type: unspecified COPD Qualified Code(s): J44.9 - Chronic obstructive pulmonary disease, unspecified (3) Lactic acidosis Code(s): E87.2 - ACIDOSIS (4) Pneumonia Code(s): J18.9 - PNEUMONIA, UNSPECIFIED ORGANISM Qualifiers: Pneumonia type: due to unspecified organism Laterality: unspecified laterality Lung location: unspecified part of lung Qualified Code(s): J18.9 - Pneumonia, unspecified organism (5) Acute exacerbation of COPD with asthma Code(s): J44.1 - CHRONIC OBSTRUCTIVE PULMONARY DISEASE W (ACUTE) EXACERBATION; J45.901 - UNSPECIFIED ASTHMA WITH (ACUTE) EXACERBATION (6) Asthma Code(s): J45.909 - UNSPECIFIED ASTHMA, UNCOMPLICATED Qualifiers: Asthma severity: moderate Asthma persistence: persistent Asthma complication type: with acute exacerbation Qualified Code(s): J45.41 - Moderate persistent asthma with (acute) exacerbation Assessment/Plan IMP ACUTE ON CHRONIC HYPOXEMIC RESPIRATORY FAILURE CHRONIC PERSISTENT ASTHMA WITH ACUTE EXACERBATION DIASTOLIC HF MGUS PERIPHERAL NEUROPATHY PLAN IV STEROIDS REDUCED INHALED BRONCHODILATORS O2 THEOPHYLLINE MONITOR PEAK FLOW ABX DISCONTINUED PER LOU MARSH MD
--- NOTE | 2017-10-31 12:20 | PN ---
Progress Note, Physician History of Present Illness: Pt's breathing bettter, walked in the hallway felt a little SOB. Pt w/o CP, palp, abd pain, N, V. - Current Medication List Current Medications: Active Medications Alprazolam (Xanax -) 0.25 mg PO Q6H PRN PRN Reason: ANXIETY Last Admin: 10/30/17 20:21 Dose: 0.25 mg Amlodipine Besylate (Norvasc -) 5 mg PO DAILY [facility] Last Admin: 10/31/17 09:54 Dose: 5 mg Atorvastatin Calcium (Lipitor -) 20 mg PO HS [facility] Last Admin: 10/30/17 21:58 Dose: 20 mg Budesonide/Formoterol Fumarate (Symbicort 160/4.5mcg -) 2 puff IH BID [facility] Last Admin: 10/31/17 09:55 Dose: 2 puff Docusate Sodium (Colace -) 100 mg PO BID [facility] Last Admin: 10/31/17 09:54 Dose: 100 mg Furosemide (Lasix -) 20 mg PO DAILY [facility] Last Admin: 10/31/17 09:54 Dose: 20 mg Heparin Sodium (Porcine) (Heparin -) 5,000 unit SQ BID [facility] Last Admin: 10/31/17 09:54 Dose: 5,000 unit Sodium Chloride (Normal Saline -) 500 mls @ 50 mls/hr IV ONCE ONE Stop: 10/31/17 19:59 Last Admin: 10/31/17 09:55 Dose: 50 mls/hr Insulin Aspart (Novolog Vial Sliding Scale -) 1 vial SQ BIDAC [facility] PRN Reason: Protocol Last Admin: 10/31/17 06:39 Dose: 2 units Methylprednisolone Sodium Succinate (Solu-Medrol -) 20 mg IVPUSH Q8H-IV [facility] Last Admin: 10/31/17 09:54 Dose: 20 mg Nystatin (Nystatin Oral Suspension -) 500,000 units PO Q6HPO [facility] Last Admin: 10/31/17 12:09 Dose: 500,000 units Pantoprazole Sodium (Protonix -) 40 mg PO DAILY [facility] Last Admin: 10/31/17 09:54 Dose: 40 mg Ramelteon (Rozerem) 8 mg PO HS [facility] Last Admin: 10/30/17 21:58 Dose: 8 mg Theophylline 200 mg/ (Theophylline 100 mg) 300 mg PO DAILY [facility] Last Admin: 10/31/17 10:00 Dose: 300 mg Tiotropium [place] (Spiriva -) 1 puff IH DAILY [facility] Last Admin: 10/30/17 09:29 Dose: 1 puff - Objective Vital Signs: Vital Signs Temperature 98.1 F 10/31/17 09:42 Pulse Rate 99 H 10/31/17 09:42 Respiratory Rate 20 10/31/17 09:42 Blood Pressure 126/75 10/31/17 09:42 O2 Sat by Pulse Oximetry (%) 96 10/30/17 21:00 Constitutional: Yes: No Distress, Calm Cardiovascular: Yes: Regular Rate and Rhythm, S1, S2 Respiratory: Yes: Regular, Rhonchi (decreased), Wheezes (decreased) Gastrointestinal: Yes: Normal Bowel Sounds, Soft. No: Tenderness Neurological: Yes: Alert, Oriented Labs: CBC, BMP 10/31/17 06:30 10/31/17 06:30 INR, PTT INR 0.97 (0.82-1.09) 10/25/17 17:18 Problem List - Problems (1) Pneumonia Code(s): J18.9 - PNEUMONIA, UNSPECIFIED ORGANISM Qualifiers: Pneumonia type: due to unspecified organism Laterality: unspecified laterality Lung location: unspecified part of lung Qualified Code(s): J18.9 - Pneumonia, unspecified organism (2) Acute exacerbation of COPD with asthma Code(s): J44.1 - CHRONIC OBSTRUCTIVE PULMONARY DISEASE W (ACUTE) EXACERBATION; J45.901 - UNSPECIFIED ASTHMA WITH (ACUTE) EXACERBATION (3) CHF (congestive heart failure) Code(s): I50.9 - HEART FAILURE, UNSPECIFIED Qualifiers: (4) MGUS (monoclonal gammopathy of unknown significance) Code(s): D47.2 - MONOCLONAL GAMMOPATHY (5) Shoulder pain, left Code(s): M25.512 - PAIN IN LEFT SHOULDER (6) Insomnia Code(s): G47.00 - INSOMNIA, UNSPECIFIED (7) Lactic acidosis Assessment/Plan: Likely secondary to Respiratory alkalosis Code(s): E87.2 - ACIDOSIS Assessment/Plan Pulmonary Consult, ID consult appreciated Off abtx per ID IV steroids- to taper slowly; DVT prophylaxis GI prophylaxis To DC IVF. I encouraged pt to walk in the hallway. Xanax PRN for anxiety. Rozerem for insomnia. AM labs
[2017-10-31] MEDS: TIOTROPIUM BROMIDE 18 MCG/INH (DEVICE W/ 5 CAPSULES) IH SCH (13:40)
--- NOTE | 2017-10-31 18:08 | PN ---
Progress Note (short form) - Note Progress Note: Chief Complaint: sob, cough History of Present Illness: sob improved. + edema of bilateral feet. no cp, palps, dizziness. Current Medications Alprazolam (Xanax -) 0.25 mg PO Q6H PRN PRN Reason: ANXIETY Last Admin: 10/30/17 20:21 Dose: 0.25 mg Amlodipine Besylate (Norvasc -) 5 mg PO DAILY [facility] Last Admin: 10/31/17 09:54 Dose: 5 mg Atorvastatin Calcium (Lipitor -) 20 mg PO HS [facility] Last Admin: 10/30/17 21:58 Dose: 20 mg Budesonide/Formoterol Fumarate (Symbicort 160/4.5mcg -) 2 puff IH BID [facility] Last Admin: 10/31/17 09:55 Dose: 2 puff Docusate Sodium (Colace -) 100 mg PO BID [facility] Last Admin: 10/31/17 09:54 Dose: 100 mg Furosemide (Lasix -) 20 mg PO DAILY [facility] Last Admin: 10/31/17 09:54 Dose: 20 mg Heparin Sodium (Porcine) (Heparin -) 5,000 unit SQ BID [facility] Last Admin: 10/31/17 09:54 Dose: 5,000 unit Sodium Chloride (Normal Saline -) 500 mls @ 50 mls/hr IV ONCE ONE Stop: 10/31/17 19:59 Last Admin: 10/31/17 09:55 Dose: 50 mls/hr Insulin Aspart (Novolog Vial Sliding Scale -) 1 vial SQ BIDAC [facility] PRN Reason: Protocol Last Admin: 10/31/17 17:39 Dose: 2 units Methylprednisolone Sodium Succinate (Solu-Medrol -) 20 mg IVPUSH Q8H-IV [facility] Last Admin: 10/31/17 17:40 Dose: Not Given Nystatin (Nystatin Oral Suspension -) 500,000 units PO Q6HPO [facility] Last Admin: 10/31/17 17:55 Dose: 500,000 units Pantoprazole Sodium (Protonix -) 40 mg PO DAILY [facility] Last Admin: 10/31/17 09:54 Dose: 40 mg Ramelteon (Rozerem) 8 mg PO HS [facility] Last Admin: 10/30/17 21:58 Dose: 8 mg Theophylline 200 mg/ (Theophylline 100 mg) 300 mg PO DAILY [facility] Last Admin: 10/31/17 10:00 Dose: 300 mg Tiotropium [place] (Spiriva -) 1 puff IH DAILY [facility] Last Admin: 10/31/17 13:40 Dose: 1 puff Vital Signs - 24 hr 10/30/17 10/30/17 10/30/17 18:54 21:00 23:00 Temperature Pulse Rate 103 H 102 H Respiratory 20 20 18 Rate Blood Pressure 125/73 140/90 O2 Sat by Pulse 96 Oximetry (%) 10/31/17 10/31/17 10/31/17 06:35 09:00 09:42 Temperature 97.9 F 98.1 F Pulse Rate 92 H 96 H 99 H Respiratory 18 20 20 Rate Blood Pressure 143/92 116/82 126/75 O2 Sat by Pulse Oximetry (%) 10/31/17 10/31/17 10/31/17 10:00 13:41 17:55 Temperature 98.0 F 98.4 F Pulse Rate 91 H 107 H Respiratory 20 20 Rate Blood Pressure 128/78 116/75 O2 Sat by Pulse 96 Oximetry (%) Intake & Output 10/29/17 10/30/17 10/31/17 11/01/17 07:59 07:59 07:59 07:59 Intake Total 1800 1635 1200 Balance 1800 1635 1200 Constitutional: Yes: Well Nourished, No Distress Eyes: No: Sclera Icterus Neck: No: Decreased ROM. no jvd. Respiratory: Yes: Wheezes. diminished air movement. Normal effort. No: Accessory Muscle Use, Rales Gastrointestinal: Yes: Normal Bowel Sounds. No: Distention, Hepatomegaly, Palpable Mass, Tenderness Cardiovascular: Yes: Regular Rate and Rhythm JVD: No Heart Sounds: Yes: S1, S2. No: Gallop Murmur: No: Systolic Murmur, Diastolic Murmur Extremities: No: Cold, Cyanosis Edema: trace-1+ le edema of feet Integumentary: No: Jaundice Neurological: Yes: Alert, Oriented (x3) Psychiatric: No: Agitated CBC, BMP 10/31/17 06:30 10/31/17 06:30 Laboratory Tests 10/30/17 10/31/17 10/31/17 11:05 06:30 06:30 Lactic Acid 2.8 H* 3.7 H* Total Bilirubin 0.2 D AST 12 L ALT 38 Alkaline Phosphatase 45 Albumin 3.0 L ekg: sinus tach, no ischemic changes. 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 similar to priors. by my review, LLL opacity in area of prior atelectasis/ consolidation is slightly more prominent than on priors. echo 10/2017: tds. nl lv size/fn. rv not well visualized. 1+ mac. small pericardial effusion < 1 cm. Echo 02/2017: tds. nl lv/rv. valves not well seen but no sig ab. dobutamine stress 02/2017: suboptimal, target HR not achieved. occ pvc's seen. diaphragmatic attenuation, no ischemica. EF 73% Assessment/Plan 62yo with h/o new HTN (recently started on norvasc), LE edema/? diastolic dysfunction/chf, copd on home O2, prior PTX needing VATS, MGUS, peripheral neuropathy, GERD, hypothyroid and recent rotator cuff surgery who p/w progressive sob. sob, copd: -no clinical signs or sx's of pulm edema -etiology of sx's seems to be pulmonary > cardiac, mgm't per pmd/pulm -ce's neg x 3. ekg without ischemic changes . no anginal sx's. no signs of acs. HTN: -bp trending down today and lactate trending up, will hold norvasc. HPL: - on statin. chronic diastolic chf, le venous insuff: -no signs pulm edema or acute chf -bnp low -10/29 was on lasix 20 qd for le edema at home, held while on ivfs but now with some worsening le edema so will dc ivfs and resume po lasix. -10/31 lactate rising again --> will hold lasix for now. daily weights, i/o's.
[2017-10-31] MEDS: predniSONE 20 MG TABLET (UD) PO SCH (19:13)
[2017-10-31] MEDS: RAMELTEON 8 MG TABLET PO SCH (21:53)
[2017-10-31] MEDS: ATORVASTATIN CA 20 MG TABLET (FP) PO SCH (21:53)
[2017-11-01] MEDS: INSULIN SLIDING SCALE (NOVOLOG) 1 VIAL SQ SCH (06:15)
[2017-11-01] MEDS: NYSTATIN 500,000 UNITS/5 ML SUSPENSION PO SCH ×2 (06:16→13:10)
[2017-11-01 07:38] LABS: HEMATOCRIT 33.3 % (32.4-45.2); HEMOGLOBIN 10.4 GM/dL (10.7-15.3); MCH 24.3 pg (25.7-33.7); MCHC 31.3 g/dl (32.0-36.0); MEAN CELL VOLUME 77.5 fl (80-96); MEAN PLT VOLUME 7.4 fl (7.5-11.1); PLATELET COUNT 339 K/MM3 (134-434); RDW 19.9 % (11.6-15.6); WHITE BLOOD COUNT 16.8 K/mm3 (4.0-10.0)
[2017-11-01 07:57] LABS: ANION GAP 10 (8-16); BLOOD UREA NITROGEN 20 mg/dL (7-18); CALCIUM 8.6 mg/dL (8.5-10.1); CHLORIDE 102 mmol/L (98-107); CO2 29 mmol/L (21-32); CREATININE 0.6 mg/dL (0.55-1.02); GLUCOSE,RANDOM 158 mg/dL (74-106); POTASSIUM 3.6 mmol/L (3.5-5.1); SODIUM 141 mmol/L (136-145)
[2017-11-01 09:11] VITALS: BP 123/82; PULSE 106; TEMP 98.3
--- NOTE | 2017-11-01 09:15 | PN ---
Progress Note, Physician Chief Complaint: sob, cough History of Present Illness: sob and cough better leg swelling resolved no dizzy, palpit - Current Medication List Current Medications: Active Medications Alprazolam (Xanax -) 0.25 mg PO Q6H PRN PRN Reason: ANXIETY Last Admin: 10/30/17 20:21 Dose: 0.25 mg Atorvastatin Calcium (Lipitor -) 20 mg PO HS [facility] Last Admin: 10/31/17 21:53 Dose: 20 mg Budesonide/Formoterol Fumarate (Symbicort 160/4.5mcg -) 2 puff IH BID [facility] Last Admin: 10/31/17 21:53 Dose: 2 puff Docusate Sodium (Colace -) 100 mg PO BID [facility] Last Admin: 10/31/17 21:53 Dose: 100 mg Heparin Sodium (Porcine) (Heparin -) 5,000 unit SQ BID [facility] Last Admin: 10/31/17 21:53 Dose: 5,000 unit Insulin Aspart (Novolog Vial Sliding Scale -) 1 vial SQ BIDAC [facility] PRN Reason: Protocol Last Admin: 11/01/17 06:15 Dose: 2 units Nystatin (Nystatin Oral Suspension -) 500,000 units PO Q6HPO [facility] Last Admin: 11/01/17 06:16 Dose: 500,000 units Pantoprazole Sodium (Protonix -) 40 mg PO DAILY [facility] Last Admin: 10/31/17 09:54 Dose: 40 mg Prednisone (Deltasone -) 40 mg PO DAILY [facility] Last Admin: 10/31/17 19:13 Dose: 40 mg Ramelteon (Rozerem) 8 mg PO HS [facility] Last Admin: 10/31/17 21:53 Dose: 8 mg Theophylline 200 mg/ (Theophylline 100 mg) 300 mg PO DAILY [facility] Last Admin: 10/31/17 10:00 Dose: 300 mg Tiotropium [place] (Spiriva -) 1 puff IH DAILY [facility] Last Admin: 10/31/17 13:40 Dose: 1 puff - Objective Vital Signs: Vital Signs Temperature 98.3 F 11/01/17 09:00 Pulse Rate 106 H 11/01/17 09:00 Respiratory Rate 18 11/01/17 09:00 Blood Pressure 123/82 11/01/17 09:00 O2 Sat by Pulse Oximetry (%) 96 10/31/17 21:00 Constitutional: Yes: Well Nourished, No Distress, Calm Cardiovascular: Yes: Regular Rate and Rhythm, S1, S2. No: Gallop, Murmur Respiratory: Yes: Regular, Wheezes (faint R base). No: Accessory Muscle Use, Rales Extremities: No: Cold Edema: No Neurological: Yes: Alert, Oriented Psychiatric: No: Agitated Labs: CBC, BMP 11/01/17 07:00 11/01/17 07:00 INR, PTT INR 0.97 (0.82-1.09) 10/25/17 17:18 Assessment/Plan ekg: sinus tach, no ischemic changes. cxr report: increased interstitial markings c/w chronic lung disease. similar to priors. dr heller review: LLL opacity in area of prior atelectasis/consolidation is slightly more prominent than on priors. echo 10/2017: tds. nl lv size/fn. rv not well visualized. 1+ mac. small pericardial effusion < 1 cm. Echo 02/2017: tds. nl lv/rv. valves not well seen but no sig ab. dobutamine stress 02/2017: suboptimal, target HR not achieved. occ pvc's seen. diaphragmatic attenuation, no ischemica. EF 73% Assessment/Plan 62yo with h/o new HTN (recently started on norvasc), LE edema/? diastolic dysfunction/chf, copd on home O2, prior PTX needing VATS, MGUS, peripheral neuropathy, GERD, hypothyroid and recent rotator cuff surgery who p/w progressive sob. sob, a.e. copd: -no clinical signs or sx's of pulm edema -etiology of sx's seems to be pulmonary > cardiac, mgm't per pmd/pulm -ce's neg x 3. ekg without ischemic changes . no anginal sx's. no signs of acs. HTN: -norvasc held here when bp trending down -bp 120s today (11/01). pt states dr heller d/w'd her ? amlodpine 5mg causing her edema at home, in absence of diast chf here -rec d/c on 2.5mg amlodipine daily and see dr heller in 4 wks to assess bp and edema HPL: - on statin. chronic diastolic chf, le venous insuff: -no signs pulm edema or acute chf -bnp low -10/29 was on lasix 20 qd for le edema at home, held while on ivfs but now with some worsening le edema so will dc ivfs and resume po lasix. -10/31 lactate rising again --> will hold lasix for now. -ok for prn lasix at home for edema as needed clinically stable from cv p.o.v.
[2017-11-01] MEDS: DOCUSATE SODIUM 100 MG CAPSULE (FP) PO SCH (09:28)
[2017-11-01] MEDS: predniSONE 20 MG TABLET (UD) PO SCH (09:28)
[2017-11-01] MEDS: PANTOPRAZOLE 40 MG TABLET (FP) PO SCH (09:28)
[2017-11-01] MEDS: HEPARIN NA (PORCINE) 5,000 UNITS/ML 1ML VIAL SQ SCH (09:28)
[2017-11-01] MEDS: TIOTROPIUM BROMIDE 18 MCG/INH (DEVICE W/ 5 CAPSULES) IH SCH (09:29)
[2017-11-01] MEDS: BUDESONIDE/FORMETEROL FUMARATE 160/4.5 mcg INHALER IH SCH (09:29)
[2017-11-01] MEDS: THEOPHYLLINE ANHYDROUS PO SCH (10:54)
--- NOTE | 2017-11-01 11:33 | DS ---
Physical Examination Vital Signs: Vital Signs Temperature 98.3 F 11/01/17 09:00 Pulse Rate 106 H 11/01/17 09:00 Respiratory Rate 18 11/01/17 09:00 Blood Pressure 123/82 11/01/17 09:00 O2 Sat by Pulse Oximetry (%) 96 10/31/17 21:00 Findings/Remarks: Pt's breathing is better. Pt w/o SOB, CP, palpitations, abd pain. Constitutional: Yes: No Distress, Calm Cardiovascular: Yes: Regular Rate and Rhythm, S1, S2 Respiratory: Yes: Regular, Wheezes (expiratory) Gastrointestinal: Yes: Normal Bowel Sounds, Soft. No: Tenderness Edema: No Neurological: Yes: Alert, Oriented Labs: CBC, BMP 11/01/17 07:00 11/01/17 07:00 Discharge Summary Reason For Visit: CHRONIC OBSTRUCTIVE ASTHMA WITH EXACERBATION, PNUE Current Active Problems Acute on chronic respiratory failure with hypoxia (Acute) COPD (chronic obstructive pulmonary disease) (Acute) Insomnia (Acute) Lactic acidosis (Acute) Obesity (BMI 30.0-34.9) (Acute) Penicillin allergy (Acute) Pneumonia (Acute) Procedures: Principal: CXRs Hospital Course: Pt came to ER for ARMSTRONG, from doctors office ( after was treated as outpatient with Steroids and abtx but failed to improve); pt was admitted for PNA and COPD exacerbation, started on IV abtx, high dose IV steroids. Pt was seen by Cardio ( Dr. Stockton), Pulmonary (De. James/ Nadine), ID (dr. Holm). Pt improved slowly. Pt to be DC'ed home with outpaint f/u. Condition: Improved - Instructions Diet, Activity, Other Instructions: Low salt, Low cholesterol, NCS Referrals: Amarjit Burrell MD [Primary Care Provider] - (1-2 weeks) Adalid James MD [Staff Physician] - (1-2 weeks) Yuly Stockton MD [Staff Physician] - (1-2 weeks) Disposition: HOME - Home Medications Comprehensive Discharge Medication List: Ambulatory Orders this list might NOT be accurate Albuterol Sulfate Inhaler - [Ventolin HFA Inhaler -] 2 puff IH Q4H PRN 09/11/15 BUPROPion HCL "SR" [Wellbutrin Sr -] 100 mg PO DAILY 02/14/17 Montelukast Na [Singulair -] 10 mg PO HS 02/14/17 Albuterol 0.083% Nebulizer Yadira [Ventolin 0.083% Nebulizer Soln -] 1 amp NEB Q4H PRN #0 amp 03/03/17 Budesonide/Formeterol Fumarate [SYMBICORT 80/4.5mcg -] 2 inh PO BID 08/23/17 Cetirizine HCl [Zyrtec -] 10 mg PO DAILY 08/23/17 Cyclosporine [Restasis] 1 each OU BID 08/23/17 Famotidine [Pepcid] 40 mg PO DAILY 08/23/17 Lorazepam 1 mg PO DAILY PRN 08/23/17 Acetylcysteine 10% [Mucomyst] 600 mg GT BID #360 ml 08/31/17 Amlodipine Besylate [Norvasc -] 5 mg PO DAILY #30 tablet 08/31/17 Melatonin 10 mg PO HS #60 tab 08/31/17 Naproxen 500 mg PO BID 10/05/17 Nystatin 100,000 unit PO BID 10/05/17 Acetylcysteine Po/INH 20% [Mucomyst 20 Oral / INH Use Only*] 600 mg NEB BID #60 vial 10/12/17 Albuterol 0.083% Nebulizer Yadira [Ventolin 0.083% Nebulizer Soln -] 1 amp NEB Q6H PRN amp 10/12/17 Furosemide [Lasix -] 20 mg PO DAILY #90 tablet 10/12/17 Guaifenesin/D-Methorphan Hb [Diabetic Tussin Dm -] 10 ml PO Q4H #200 ml Prednisone [Deltasone -] See Taper PO DAILY 15 Days #67 tablet 10/12/17
--- NOTE | 2017-11-01 11:51 | PN ---
Progress Note (short form) - Note Progress Note: Overall feels better. Some residual cough. Intake & Output 10/29/17 10/30/17 10/31/17 11/01/17 23:59 23:59 23:59 23:59 Intake Total 1785 1450 400 200 Balance 1785 1450 400 200 Last Vital Signs Temp Pulse Resp BP Pulse Ox 98.3 F 106 H 18 123/82 93 L 11/01/17 09:00 11/01/17 09:00 11/01/17 09:00 11/01/17 09:00 11/01/17 10:00 Active Medications Alprazolam (Xanax -) 0.25 mg PO Q6H PRN PRN Reason: ANXIETY Last Admin: 10/30/17 20:21 Dose: 0.25 mg Atorvastatin Calcium (Lipitor -) 20 mg PO HS [facility] Last Admin: 10/31/17 21:53 Dose: 20 mg Budesonide/Formoterol Fumarate (Symbicort 160/4.5mcg -) 2 puff IH BID [facility] Last Admin: 11/01/17 09:29 Dose: 2 puff Docusate Sodium (Colace -) 100 mg PO BID [facility] Last Admin: 11/01/17 09:28 Dose: 100 mg Heparin Sodium (Porcine) (Heparin -) 5,000 unit SQ BID [facility] Last Admin: 11/01/17 09:28 Dose: 5,000 unit Insulin Aspart (Novolog Vial Sliding Scale -) 1 vial SQ BIDAC [facility] PRN Reason: Protocol Last Admin: 11/01/17 06:15 Dose: 2 units Nystatin (Nystatin Oral Suspension -) 500,000 units PO Q6HPO [facility] Last Admin: 11/01/17 06:16 Dose: 500,000 units Pantoprazole Sodium (Protonix -) 40 mg PO DAILY [facility] Last Admin: 11/01/17 09:28 Dose: 40 mg Prednisone (Deltasone -) 40 mg PO DAILY [facility] Last Admin: 11/01/17 09:28 Dose: 40 mg Ramelteon (Rozerem) 8 mg PO HS [facility] Last Admin: 10/31/17 21:53 Dose: 8 mg Theophylline 200 mg/ (Theophylline 100 mg) 300 mg PO DAILY [facility] Last Admin: 11/01/17 10:54 Dose: 300 mg Tiotropium [place] (Spiriva -) 1 puff IH DAILY [facility] Last Admin: 11/01/17 09:29 Dose: 1 puff Constitutional: Yes: NAD Eyes: No: Sclera Icterus HENT: No: Nasal Congestion Neck: No: Decreased ROM. no jvd. Respiratory: Yes: few scattered rhonchi, no Wheezes. diminished air movement. Normal effort. No: Accessory Muscle Use, Rales Gastrointestinal: Yes: Normal Bowel Sounds. No: Distention, Hepatomegaly, Palpable Mass, Tenderness Cardiovascular: Yes: Regular Rate and Rhythm JVD: No Carotid Bruit: No PMI: Non-Displaced Heart Sounds: Yes: S1, S2. No: Gallop Murmur: No: Systolic Murmur, Diastolic Murmur Extremities: No: Cold, Cyanosis Edema: trace pedal edema bl Peripheral Pulses: 2+ Left Carotid, 2+ Right Carotid, 2+ Left Doralis Pedis, 2+ Right Dorsalis Pedis Integumentary: No: Jaundice Neurological: Yes: Alert, Oriented (x3) Psychiatric: No: Agitated Laboratory Results - last 24 hr 10/31/17 11/01/17 11/01/17 17:33 06:14 07:00 WBC 16.8 H RBC 4.30 Hgb 10.4 L Hct 33.3 MCV 77.5 L MCH 24.3 L MCHC 31.3 L RDW 19.9 H Plt Count 339 MPV 7.4 L Sodium Potassium Chloride Carbon Dioxide Anion Gap BUN Creatinine POC Glucometer 185 171 Random Glucose Calcium 11/01/17 07:00 WBC RBC Hgb Hct MCV MCH MCHC RDW Plt Count MPV Sodium 141 Potassium 3.6 Chloride 102 Carbon Dioxide 29 Anion Gap 10 BUN 20 H Creatinine 0.6 POC Glucometer Random Glucose 158 H Calcium 8.6 Problem List - Problems (1) Acute on chronic respiratory failure with hypoxia Code(s): J96.21 - ACUTE AND CHRONIC RESPIRATORY FAILURE WITH HYPOXIA (2) Acute exacerbation of COPD with asthma Code(s): J44.1 - CHRONIC OBSTRUCTIVE PULMONARY DISEASE W (ACUTE) EXACERBATION; J45.901 - UNSPECIFIED ASTHMA WITH (ACUTE) EXACERBATION (3) Asthma exacerbation Code(s): J45.901 - UNSPECIFIED ASTHMA WITH (ACUTE) EXACERBATION (4) CHF (congestive heart failure) Code(s): I50.9 - HEART FAILURE, UNSPECIFIED Qualifiers: (5) Diabetes 1.5, managed as type 2 Code(s): E13.9 - OTHER SPECIFIED DIABETES MELLITUS WITHOUT COMPLICATIONS (6) Edema of both feet Code(s): R60.0 - LOCALIZED EDEMA (7) MGUS (monoclonal gammopathy of unknown significance) Code(s): D47.2 - MONOCLONAL GAMMOPATHY (8) Moderate persistent chronic asthma with acute exacerbation Code(s): J45.41 - MODERATE PERSISTENT ASTHMA WITH (ACUTE) EXACERBATION (9) Respiratory distress Code(s): R06.00 - DYSPNEA, UNSPECIFIED IMP ACUTE ON CHRONIC HYPOXEMIC RESPIRATORY FAILURE CHRONIC PERSISTENT ASTHMA WITH ACUTE EXACERBATION DIASTOLIC HF MGUS PERIPHERAL NEUROPATHY PLAN PREDNISONE INHALED BRONCHODILATORS O2 THEOPHYLLINE MONITOR [place] FLOW SPIRIVA OFFICE FOLLOW UP IN [address] ZARATE
== END 2017-11-01 13:09 | disposition home or self-care (01) | DRG 190 ==
LOC: JER 12:11 → JERBED 17:32 → J5S 10-26 14:11
PROVIDERS: ADMIT Specialist; ATTEND Specialist
DX: J44.1 Chronic obstructive pulmonary disease with (acute) exacerbation (principal); J96.21 Acute and chronic respiratory failure with hypoxia; J18.9 Pneumonia, unspecified organism; J45.901 Unspecified asthma with (acute) exacerbation; E87.2 Acidosis; I50.32 Chronic diastolic (congestive) heart failure; G62.9 Polyneuropathy, unspecified; I11.0 Hypertensive heart disease with heart failure; E78.5 Hyperlipidemia, unspecified; E03.9 Hypothyroidism, unspecified; Z88.0 Allergy status to penicillin; M25.512 Pain in left shoulder; E11.9 Type 2 diabetes mellitus without complications; K21.9 Gastro-esophageal reflux disease without esophagitis; E66.9 Obesity, unspecified; Z68.32 Body mass index [BMI] 32.0-32.9, adult; G47.00 Insomnia, unspecified
CPT/HCPCS: 36415; 71045-TC; 71046-TC; 80048; 80053; 81003; 81015; 82550; 82803; 82962; 83605; 83735; 83880; 84100; 84484; 85025; 85027; 85610; 85730; 86850; 86900; 86901; 87040; 87070; 87086; 87205; 87420; 87804; 93005; 93010; 94640; 99285-25; G0480; J1644

== ENCOUNTER 2018-03-05 17:10 | Emergency (ER) | payer OTHER ==
[2018-03-05 17:14] VITALS: BMI 31.7
--- NOTE | 2018-03-05 18:25 | PDOC ---
History of Present Illness - General Chief Complaint: Edema Stated Complaint: LUMP ON FACE Time Seen by Provider: 03/05/18 17:59 - History of Present Illness Initial Comments: 03/05/18 18:25 62 yo F with h/o asthma, DM II, COPD on chronic steroid taper, L rotator cuff injury, Diastolic CHF, MGUS who p/w left internal submanidular pain. Patient states that she has had 2 days of painful L sided lower submandibular pain, associated with "copper/nickel" taste and chin tingling x 1 day. Symptoms worse with PO food intake. Patient wears dentures. No home O2 requirements. At baseline resp status. Denies F/C, skin changes, VARGAS, vision change, Jaw pain, N/V, CP, SOB, abdominal pain, diarrhea, constipation, BPR, urinary complaints, weakness, lightheadedness , sensory changes. PMHx: as noted above ROS: as noted above Allergies: Oxycodone Past History - Past Medical History Allergies/Adverse Reactions: Allergies Allergy/AdvReac Type Severity Reaction Status Date / Time Penicillins Allergy Intermediate Rash Verified 03/05/18 17:14 fluoroquinolones Allergy Severe Difficulty Uncoded 03/05/18 17:14 Breathing Home Medications: Ambulatory Orders Albuterol Sulfate Inhaler - [Ventolin HFA Inhaler -] 2 puff IH Q4H PRN 09/11/15 BUPROPion HCL "SR" [Wellbutrin Sr -] 100 mg PO DAILY 02/14/17 Albuterol 0.083% Nebulizer Yadira [Ventolin 0.083% Nebulizer Soln -] 1 amp NEB Q4H PRN #0 amp 03/03/17 Cetirizine HCl [Zyrtec -] 10 mg PO DAILY 08/23/17 Cyclosporine [Restasis] 1 each OU BID 08/23/17 Famotidine [Pepcid] 40 mg PO DAILY 08/23/17 Lorazepam 1 mg PO DAILY PRN 08/23/17 Acetylcysteine 10% [Mucomyst] 600 mg GT BID #360 ml 08/31/17 Amlodipine Besylate [Norvasc -] 5 mg PO DAILY #30 tablet 08/31/17 Melatonin 10 mg PO HS #60 tab 08/31/17 Naproxen 500 mg PO BID 10/05/17 Nystatin 100,000 unit PO BID 10/05/17 Furosemide [Lasix -] 20 mg PO DAILY #90 tablet 10/12/17 Guaifenesin/D-Methorphan Hb [Diabetic Tussin Dm -] 10 ml PO Q4H #200 ml Budesonide/Formeterol Fumarate [SYMBICORT 160/4.5mcg -] 2 puff IH BID inhaler 11/01/17 Budesonide/Formeterol Fumarate [SYMBICORT 80/4.5mcg -] 2 inh PO BID 30 Days #1 inhaler 11/01/17 Docusate Sodium [Colace -] 100 mg PO BID #60 capsule MDD 2 11/01/17 Montelukast Na [Singulair -] 10 mg PO HS #90 tablet 11/01/17 Theophylline Anhydrous [Waldo-24] 300 mg PO DAILY #90 cap.er.24h MDD 1 11/01/17 Tiotropium [place] [Spiriva] 1 puff IH DAILY inh 11/01/17 predniSONE [Deltasone -] See Taper PO DAILY #30 tablet MDD 2 11/01/17 Anemia: No Asthma: Yes Cancer: No Cardiac Disorders: No CVA: No COPD: Yes CHF: No Dementia: No 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) GI Disorders: No Disorders: No HTN: Yes Hypercholesterolemia: Yes Liver Disease: No Seizures: No Thyroid Disease: No - Surgical History Abdominal Surgery: No Appendectomy: No Cardiac Surgery: No Cholecystectomy: No Lung Surgery: No Neurologic Surgery: No Orthopedic Surgery: Yes (numerous foot surgeries, right rotator cuff) - Immunization History Immunization Up to Date: No - Suicide/Smoking/Psychosocial Hx Smoking History: Never smoked Have you smoked in the past 12 months: No Number of Cigarettes Smoked Daily: 1 If you are a former smoker, when did you quit?: 02/17 Information on smoking cessation initiated: No 'Breaking Loose' booklet given: 02/27/16 Hx Alcohol Use: No Drug/Substance Use Hx: No Substance Use Type: None Hx Substance Use Treatment: No Review of Systems - Review of Systems Comments:: 03/05/18 18:25 GENERAL/CONSTITUTIONAL: No fever or chills. No weakness. HEAD, EYES, EARS, NOSE AND THROAT: No change in vision. No ear pain or discharge. No sore throat. CARDIOVASCULAR: No chest pain or shortness of breath RESPIRATORY: No cough, wheezing, or hemoptysis. GASTROINTESTINAL: No nausea, vomiting, diarrhea or constipation. GENITOURINARY: No dysuria, frequency, or change in urination. MUSCULOSKELETAL: No joint or muscle swelling or pain. No neck or back pain. SKIN: No rash NEUROLOGIC: No headache, vertigo, loss of consciousness, or change in strength/ sensation. ENDOCRINE: No increased thirst. No abnormal weight change HEMATOLOGIC/LYMPHATIC: No anemia, easy bleeding, or history of blood clots. ALLERGIC/IMMUNOLOGIC: No hives or skin allergy. *Physical Exam - Vital Signs Last Vital Signs Temp Pulse Resp BP Pulse Ox 115 H 20 141/78 94 L 03/05/18 17:13 03/05/18 17:13 03/05/18 17:13 03/05/18 17:13 - Physical Exam Comments: 03/05/18 18:25 GENERAL: Awake, alert, and fully oriented, in no acute distress HEAD: No signs of trauma, normocephalic, atraumatic EYES PERRLA, EOMI, sclera anicteric, conjunctiva clear ENT: Poor dentition, bottom row dentures. Pain at area of submandibular gland, with no stone palpated or d/c present. Auricles normal inspection, hearing grossly normal, nares patent, oropharynx clear without exudates. Moist mucosa NECK: Normal ROM, supple, no lymphadenopathy, JVD, or masses. LUNGS: Coarse exp rhonci throughout. Absent rales HEART: Regular rate and rhythm, normal S1 and S2, no murmurs, rubs or gallops, peripheral pulses normal and equal bilaterally. EXTREMITIES : Normal inspection, Normal range of motion, no edema. No clubbing or cyanosis. NEUROLOGICAL: Cranial nerves II through XII grossly intact. Normal speech, normal gait, no focal sensorimotor deficits SKIN: Warm, Dry, normal turgor, no rashes or lesions noted ED Treatment Course - LABORATORY CBC & Chemistry Diagram: 03/05/18 20:10 03/05/18 20:10 Medical Decision Making - Medical Decision Making 03/05/18 18:57 62 yo F with h/o asthma, COPD, Diastolic CHF, MGUS who p/w left internal submanidular pain and altered taste aggravated with meals. HR 116, AF, A&Ox3. Patient symptoms likely 2/2 sialothiasis vs. sialoadentiis. No evidence of dental abscess, parapharyngeal infection, or parotitis. No skin change, evidence of cellulitis, or evidence of [place] angina. Absent jaw pain, clicking , or concern for TMJ disease. ED Course: CBC, BMP, CT SOFT TISSUE NECK 03/05/18 20:49 WBC: 16.2 (chronically elevated 20's-30's ) BMP: Unremarkable 03/06/18 00:01 CT SOFT TISSUE NECK: Several nodules in R parotid gland, with largest measuring 2 x 1.7 x 1.6 cm ( lymph node, malignancy cannot be excluded). Prominence of BL lacrimal glands, protruding anteriorly, which is non specific, but can be seen with sarcoidosis. 03/06/18 00:26 Repeat BP 133/74, HR 79. Discussed patient CT report findings and advised to f/u with PMD and ENT. Patient stable for d/c with return precautions and instructions to follow up with ENT. Also advised and recommended on daily sialogogue use. *DC/Admit/Observation/Transfer Diagnosis at time of Disposition: Sialolithiasis of submandibular gland - Discharge Dispostion Disposition: HOME Condition at time of disposition: Stable Decision to Admit order: No - Referrals Referrals: Amarjit Burrell MD [Primary Care Provider] - Artie Leos MD [Staff Physician] - - Patient Instructions Printed Discharge Instructions: Parotitis, DI for Mouth Pain Additional Instructions: Please return to the emergency department with any new or worsening symptoms or concerns. Please follow up with your primary care physician within 72 hours. Please follow up with ear, nose, throat doctor as discussed to further evaluate findings of your CT SOFT TISSUE NECK, which demonstrated Several nodules in R parotid gland, with largest measuring 2 x 1.7 x 1.6 cm ( lymph node, malignancy cannot be excluded). Prominence of BL lacrimal glands, protruding anteriorly, which is non specific, but can be seen with sarcoidosis. Please take lemon drops or sialogogues for pain control of left submandibular region of mouth. - Post Discharge Activity - Attestations Physician Attestion: 03/05/18 18:25 I attest to the information provided in this note.
--- NOTE | 2018-03-05 19:16 | PDOC ---
Attending Attestation - Resident Resident Name: Brett Pope - ED Attending Attestation I have performed the following: I have examined & evaluated the patient, The case was reviewed & discussed with the resident, I agree w/resident's findings & plan, Exceptions are as noted - HPI HPI: 03/05/18 19:27 Ms Gomez is a 62 yo F h/o HTN, CHF (diastolic dysfunction), COPD on home O2 and chronic steroids, prior pneumothorax needing VATS, MGUS, peripheral neuropathy , GERD, hypothyroid who presents to the ER for evaluation of left facial swelling Pt states she has had these symptoms for the past 2 days Denies known trauma She is edentous for many years as a result of prednisone use She has had multiple dentures over the years and does not think her symptoms are related to ill fitting dentures She notes a"copper/nickel" taste and left chin tingling x 1 day. no swelling of the cheek no prior episodes like this Pt has pain with swallowing because it irritates her left mandibular area 03/05/18 19:28 03/05/18 19:33 - Physicial Exam PE: 03/05/18 19:38 GENERAL: Awake, alert, and fully oriented, in no acute distress, cazares facies ENT: Poor dentition, gums not swollen, no abscess noted at the left mandibular area, painful left submandibular gland, Auricles normal inspection, hearing grossly normal, nares patent, oropharynx clear without exudates. Moist mucosa NECK: Normal ROM, supple, no lymphadenopathy, or masses. LUNGS: Coarse exp rhonci throughout. Absent rales HEART: Regular rate and rhythm, normal S1 and S2, no murmurs EXTREMITIES : Normal inspection, Normal range of motion, no edema. NEUROLOGICAL: Cranial nerves II through XII grossly intact. Normal speech, normal gait, no focal sensorimotor deficits SKIN: Warm, Dry, normal turgor, no rashes or lesions noted - Medical Decision Making 03/05/18 19:43 Pt presents to the ER with left jaw swelling and pain x 2 days no abscess noted at the left gum line Sialolithiasis with mandibular swelling Pt is immunosuppressed, increases her likehood of abscess Pt is chronic steroid use, which increased the likelihood of fractures Will do: Labs CT soft tissue neck Pain medications Re assess 03/05/18 20:40 Laboratory Tests 03/05/18 20:10 WBC 16.2 H Hgb 11.6 D Hct 36.7 Plt Count 357 Neutrophils % 89.[address] demonstrates no abscess Will discharge to home Pt to follow up with PMD
[2018-03-05] MEDS ORDERED: ACETAMINOPHEN 1000 MG/100 ML VIAL (NON FORMULARY) IVPB ONE (19:26)
[2018-03-05] MEDS ORDERED: ACETAMINOPHEN INJECTION 100 ML IVPB ONE (20:00)
[2018-03-05 20:15] LABS: BASO % 0.2 % (0-2.0); EOS % 0.1 % (0-4.5); HEMATOCRIT 36.7 % (32.4-45.2); HEMOGLOBIN 11.6 GM/dL (10.7-15.3); LYMPH % 6.8 % (8-40); MCH 23.1 pg (25.7-33.7); MCHC 31.6 g/dl (32.0-36.0); MEAN CELL VOLUME 73.2 fl (80-96); MEAN PLT VOLUME 7.9 fl (7.5-11.1); MONO % 3.4 % (3.8-10.2); NEUT % 89.5 % (42.8-82.8); PLATELET COUNT 357 K/MM3 (134-434); RBC 5.02 M/mm3 (3.60-5.2); RDW 21.2 % (11.6-15.6); WHITE BLOOD COUNT 16.2 K/mm3 (4.0-10.0)
[2018-03-05 21:10] LABS: ANISOCYTOSIS 1+; MACROCYTOSIS 1+
[2018-03-05 21:11] LABS: PLATELET ESTIMATE ADEQUATE
[2018-03-05 21:16] LABS: ANION GAP 10 (8-16); CALCIUM 8.6 mg/dL (8.5-10.1); CHLORIDE 103 mmol/L (98-107); CO2 27 mmol/L (21-32); CREATININE 0.7 mg/dL (0.55-1.02); GLUCOSE,RANDOM 139 mg/dL (74-106); POTASSIUM 4.6 mmol/L (3.5-5.1); SODIUM 140 mmol/L (136-145)
[2018-03-05 21:18] LABS: BLOOD UREA NITROGEN 13 mg/dL (7-18)
[2018-03-06 01:19] VITALS: BP 127/77; PULSE 84; TEMP 98.2
== END 2018-03-06 01:20 | disposition home or self-care (01) ==
LOC: JER 17:10
PROC: 3E033NZ Introduction of Analgesics, Hypnotics, Sedatives into Peripheral Vein, Percutaneous Approach (ICD-10-PCS; principal; 2018-03-05)
DX: K11.5 Sialolithiasis (principal); I10 Essential (primary) hypertension; J45.909 Unspecified asthma, uncomplicated; J44.9 Chronic obstructive pulmonary disease, unspecified; E78.00 Pure hypercholesterolemia, unspecified; I50.9 Heart failure, unspecified; D47.2 Monoclonal gammopathy
CPT/HCPCS: 36415; 70491-TC; 80048; 85025; 96374; 99283-25; J0131

== ENCOUNTER 2018-09-29 11:08 | Inpatient (IN) | payer OTHER ==
[2018-09-29] MEDS ORDERED: MAGNESIUM SULF 50% (8.12 MEQ/2 ML-1 GM VIAL) IVPB ONE (11:32)
[2018-09-29] MEDS ORDERED: ALBUTEROL SO4 2.5/IPRATROPIUM 0.5 INH SOL 3 ML VIAL.NEB. NEB ONE ×2 (11:32→11:41)
[2018-09-29] MEDS ORDERED: MAGNESIUM 1GM/D5W - 1 GM/100 ML IVPB IVPB ONE (11:41)
[2018-09-29 12:25] LABS: BASO % 0.3 % (0-2.0); EOS % 0.3 % (0-4.5); HEMATOCRIT 37.5 % (32.4-45.2); HEMOGLOBIN 11.6 GM/dL (10.7-15.3); LYMPH % 8.3 % (8-40); MCH 23.4 pg (25.7-33.7); MEAN CELL VOLUME 75.3 fl (80-96); MEAN PLT VOLUME 7.4 fl (7.5-11.1); NEUT % 87.1 % (42.8-82.8); PLATELET COUNT 366 K/MM3 (134-434); RBC 4.98 M/mm3 (3.60-5.2); RDW 18.9 % (11.6-15.6); WHITE BLOOD COUNT 19.1 K/mm3 (4.0-10.0)
[2018-09-29 12:55] LABS: ALBUMIN 3.2 g/dl (3.4-5.0); ALK PHOS 57 U/L (45-117); ANION GAP 9 MMOL/L (8-16); BILIRUBIN,TOTAL 0.2 mg/dL (0.2-1); BLOOD UREA NITROGEN 14 mg/dL (7-18); CALCIUM 8.5 mg/dL (8.5-10.1); CHLORIDE 106 mmol/L (98-107); CO2 25 mmol/L (21-32); CREATININE 0.8 mg/dL (0.55-1.3); GLUCOSE,RANDOM 120 mg/dL (74-106); POTASSIUM 3.7 mmol/L (3.5-5.1); SGOT/AST 19 U/L (15-37); SGPT/ALT 27 U/L (13-61); SODIUM 140 mmol/L (136-145); TOT PROT 6.6 g/dl (6.4-8.2)
--- NOTE | 2018-09-29 13:48 | PDOC ---
History of Present Illness - General History Source: Patient Exam Limitations: No Limitations - History of Present Illness Initial Comments: 09/29/18 13:59 The patient is a 63 year old female, with a significant PMH of asthma, COPD, hyperlipidemia, hypertension, CHF (diastolic dysfunction), MGUS, peripheral neuropathy, GERD, hypothyroidism, who presents to the emergency department with asthma exacerbation beginning just prior to arrival. The patient states she received Decadron from EMS prior to arrival in the ED. The patient states she has not been feeling well for 2 days and endorses a productive cough with yellow sputum. The patient states she is on prednisone 80 mg for [address] James and a low dose of azithromycin. The patient denies any recent sick contacts or travel. The patient states she did receive a flu shot earlier this year. The patient denies chest pain, headache and dizziness. Denies fever, chills, nausea, vomit, diarrhea and constipation. Denies dysuria, frequency, urgency and hematuria. Allergies: Quinolones, Penicillins, [Fluoroquinolones] Social History: Former Smoker PCP: Dr Burrell Pulmonary: Dr James <Shaquille Lee - Last Filed: 09/29/18 14:10> <Jadiel Guzmán - Last Filed: 09/29/18 16:54> - General Chief Complaint: Asthma Stated Complaint: Shortness of Breath Time Seen by Provider: 09/29/18 11:23 Past History <Shaquille Lee - Last Filed: 09/29/18 14:10> - Past Medical History Anemia: No Asthma: Yes Cancer: No Cardiac Disorders: No CVA: No COPD: Yes CHF: No Dementia: No 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) GI Disorders: No Disorders: No HTN: Yes Hypercholesterolemia: Yes Liver Disease: No Seizures: No Thyroid Disease: No - Surgical History Abdominal Surgery: No Appendectomy: No Cardiac Surgery: No Cholecystectomy: No Lung Surgery: No Neurologic Surgery: No Orthopedic Surgery: Yes (numerous foot surgeries, right rotator cuff) - Immunization History Immunization Up to Date: No - Suicide/Smoking/Psychosocial Hx Smoking History: Former smoker Have you smoked in the past 12 months: No Number of Cigarettes Smoked Daily: 1 If you are a former smoker, when did you quit?: 02/17 Information on smoking cessation initiated: No 'Breaking Loose' booklet given: 02/27/16 Hx Alcohol Use: No Drug/Substance Use Hx: No Substance Use Type: None Hx Substance Use Treatment: No <Jadiel Guzmán - Last Filed: 09/29/18 16:54> - Past Medical History Allergies/Adverse Reactions: Allergies Allergy/AdvReac Type Severity Reaction Status Date / Time Quinolones Allergy Severe Difficulty Verified 09/29/18 11:10 Breathing Penicillins Allergy Intermediate Rash Verified 09/29/18 11:10 fluoroquinolones Allergy Severe Difficulty Uncoded 09/29/18 11:10 Breathing Home Medications: Ambulatory Orders predniSONE [Deltasone -] 10 mg PO ASDIR 09/29/18 Review of Systems - Review of Systems Comments:: 09/29/18 13:59 A complete review of 10 out of 10 review of systems is taken and is negative apart from what is previously mentioned below and in the HPI. <Shaquille Lee - Last Filed: 09/29/18 14:10> *Physical Exam - Vital Signs Last Vital Signs Temp Pulse Resp BP Pulse Ox 117 H 20 120/79 95 09/29/18 11:10 09/29/18 11:10 09/29/18 11:10 09/29/18 11:10 - Physical Exam Comments: 09/29/18 13:59 Vitals: Triage Vital signs reviewed General Appearance: no acute distress, well nourished well developed, Neck: Supple; No Nuchal rigidity Chest Wall: Nontender Cardiac: Regular rate and rhythm, no murmurs, no rubs, no gallops, Lungs: (+) Coarse breath sounds bilaterally and expiratory wheezing. Abdomen: Soft, nondistended, normal bowel sounds, nontender to palpation Rectal: Exam deferred Extremities: Full range of motion to all extremities, no cyanosis, clubbing, or edema Skin: Warm and dry, no rashes or lesions, no petechiae Psych: normal mood, normal affect <Shaquille Lee - Last Filed: 09/29/18 14:10> - Vital Signs Last Vital Signs Temp Pulse Resp BP Pulse Ox 117 H 20 120/79 95 09/29/18 11:10 09/29/18 11:10 09/29/18 11:10 09/29/18 11:10 <Jadiel Guzmán - Last Filed: 09/29/18 16:54> Moderate Sedation - Procedure Monitoring Vital Signs: Procedure Monitoring Vital Signs Temperature Pulse Rate 117 H 09/29/18 11:10 Respiratory Rate 20 09/29/18 11:10 Blood Pressure 120/79 09/29/18 11:10 O2 Sat by Pulse Oximetry (%) 95 09/29/18 11:10 <Shaquille Lee - Last Filed: 09/29/18 14:10> - Procedure Monitoring Vital Signs: Procedure Monitoring Vital Signs Temperature Pulse Rate 117 H 09/29/18 11:10 Respiratory Rate 20 09/29/18 11:10 Blood Pressure 120/79 09/29/18 11:10 O2 Sat by Pulse Oximetry (%) 95 09/29/18 11:10 <Jadiel Guzmán - Last Filed: 09/29/18 16:54> Heart Score/ECG Review - ECG Impressions Comment:: 09/29/18 16:54 EKG performed at 1142 demonstrates sinus rhythm [address] elevations or T-wave inversions. Interpreted by me. <Jadiel Guzmán - Last Filed: 09/29/18 16:54> ED Treatment Course - LABORATORY CBC & Chemistry Diagram: 09/29/18 12:08 09/29/18 12:08 - ADDITIONAL ORDERS Additional order review: Laboratory Results 09/29/18 12:08 Sodium 140 Potassium 3.7 Chloride 106 Carbon Dioxide 25 Anion Gap 9 BUN 14 Creatinine 0.8 Creat Clearance w eGFR > 60 Random Glucose 120 H Calcium 8.5 Total Bilirubin 0.2 AST 19 ALT 27 Alkaline Phosphatase 57 Troponin I < 0.02 Total Protein 6.6 Albumin 3.2 L 09/29/18 12:08 RBC 4.98 MCV 75.3 L MCHC 31.0 L RDW 18.9 H MPV 7.4 L Neutrophils % 87.1 H Lymphocytes % 8.3 D Monocytes % 4.0 Eosinophils % 0.3 Basophils % 0.3 - Medications Given in the ED: ED Medications Discontinued Medications Generic Name Dose Route Start Last Admin Trade Name Freq PRN Reason Stop Dose Admin Albuterol/Ipratropium 3 amp 09/29/18 11:32 09/29/18 11:49 Duoneb - NEB 09/29/18 11:33 3 amp ONCE ONE Administration Magnesium Sulfate 1 gm 09/29/18 11:32 09/29/18 11:50 Magnesium Sulfate IVPB 09/29/18 11:33 1 gm ONCE ONE Administration <Shaquille Lee - Last Filed: 09/29/18 14:10> - LABORATORY CBC & Chemistry Diagram: 09/29/18 12:08 09/29/18 12:08 - ADDITIONAL ORDERS Additional order review: Laboratory Results 09/29/18 12:08 Sodium 140 Potassium 3.7 Chloride 106 Carbon Dioxide 25 Anion Gap 9 BUN 14 Creatinine 0.8 Creat Clearance w eGFR > 60 Random Glucose 120 H Calcium 8.5 Total Bilirubin 0.2 AST 19 ALT 27 Alkaline Phosphatase 57 Troponin I < 0.02 Total Protein 6.6 Albumin 3.2 L 09/29/18 12:08 RBC 4.98 MCV 75.3 L MCHC 31.0 L RDW 18.9 H MPV 7.4 L Neutrophils % 87.1 H Lymphocytes % 8.3 D Monocytes % 4.0 Eosinophils % 0.3 Basophils % 0.3 - RADIOLOGY Radiology Studies Ordered: Category Date Time Status CXRPORT [CHEST X-RAY PORTABLE*] [RAD] Stat Radiology 09/29/18 11:35 Completed - Medications Given in the ED: ED Medications Discontinued Medications Generic Name Dose Route Start Last Admin Trade Name Freq PRN Reason Stop Dose Admin Albuterol/Ipratropium 3 amp 09/29/18 11:32 09/29/18 11:49 Duoneb - NEB 09/29/18 11:33 3 amp ONCE ONE Administration Magnesium Sulfate 1 gm 09/29/18 11:32 09/29/18 11:50 Magnesium Sulfate IVPB 09/29/18 11:33 1 gm ONCE ONE Administration <Jadiel Guzmán - Last Filed: 09/29/18 16:54> Medical Decision Making - Medical Decision Making 09/29/18 16:53 COPD exacerbation brought in by EMS Decadron given by EMS Patient with exertional dyspnea difficulty breathing bilateral and strict return for wheezing and coarse breath sounds despite being on 80 mg of prednisone by mouth daily and azithromycin as an outpatient In the emergency department patient received an additional 1 g IV magnesium as well as 3 to all nebs She is currently improving but still symptomatic with difficulty ambulating on her baseline home O2 given failure to improve had an unsafe discharge is patient lives by herself we'll admit to medicine for further management with pulmonary consultation. <Jadiel Guzmán - Last Filed: 09/29/18 16:54> *DC/Admit/Observation/Transfer - Attestations Scribe Attestion: 09/29/18 13:59 Documentation prepared by Shaquille Lee, acting as medical sales associate for Jadiel Guzmán MD. <Shaquille Lee - Last Filed: 09/29/18 14:10> - Discharge Dispostion Decision to Admit order: Yes <Jadiel Guzmán - Last Filed: 09/29/18 16:54> Diagnosis at time of Disposition: COPD (chronic obstructive pulmonary disease) Qualifiers: COPD type: COPD with acute exacerbation Qualified Code(s): J44.1 - Chronic obstructive pulmonary disease with (acute) exacerbation - Discharge Dispostion Disposition: HOME
--- NOTE | 2018-09-29 13:58 | EKG ---
Test Reason : Blood Pressure : / mmHG Vent. Rate : 115 BPM Atrial Rate : 115 BPM P-R Int : 148 ms QRS Dur : 078 ms QT Int : 332 ms P-R-T Axes : 047 032 028 degrees QTc Int : 459 ms POOR DATA QUALITY, INTERPRETATION MAY BE ADVERSELY AFFECTED SINUS TACHYCARDIA OTHERWISE NORMAL ECG WHEN COMPARED WITH ECG OF 07-JUN-2018 11:45, NO SIGNIFICANT CHANGE WAS FOUND Confirmed by RONALDO CHAUHAN, TWAN ([id number]) on 09/29/2018 1:58:28 PM Referred By: Confirmed By:TWAN HIGGINS MD
[2018-09-29] MEDS ORDERED: CYCLOBENZAPRINE HCL 10 MG TABLET (FP) PO PRN (14:36)
[2018-09-29] MEDS ORDERED: PATIENT'S OWN MEDICATION (NON-FORMULARY) (Cyclosporine [Restasis] 1 EACH) OU SCH (22:00)
[2018-09-29] MEDS ORDERED: PT OWN MED DRAWER 7, Y5N ONE (22:28)
[2018-09-29] MEDS: MONTELUKAST NA 10 MG TABLET PO SCH (22:31)
[2018-09-29] MEDS: buPROPion HCL 100 MG TABLET PO SCH (22:31)
[2018-09-29] MEDS: ATORVASTATIN CA 20 MG TABLET (FP) PO SCH (22:31)
[2018-09-29 22:51] VITALS: BMI 27.8
--- NOTE | 2018-09-29 23:08 | HP ---
Admitting History and Physical - Primary Care Physician PCP: Amarjit Burrell - Admission Chief Complaint: SOB History of Present Illness: Pt with significant Hx/o Asthma, COPD on chronic steroid, developed SOB last week, was recommended to increase Prednisone to 40 mg daily; over the weekend pt 's SOB got worse and pt self increased Prednisone to 80 mg daily. Today pt decided to came to ER as she felt worse. 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 Pneumothorax) Gastrointestinal: Yes: GERD ...: No Heme/Onc: Yes: Other (MGUS) Endocrine: Yes: Hypothyroidism - Smoking History Smoking history: Former smoker Have you smoked in the past 12 months: No Aproximately how many cigarettes per day: 1 If you are a former smoker, when did you quit?: 02/17 - Alcohol/Substance Use Hx Alcohol Use: No - Social History ADL: Independent History of Recent Travel: No Home Medications - Allergies Allergies/Adverse Reactions: Allergies Allergy/AdvReac Type Severity Reaction Status Date / Time Quinolones Allergy Severe Difficulty Verified 09/29/18 11:10 Breathing Penicillins Allergy Intermediate Rash Verified 09/29/18 11:10 fluoroquinolones Allergy Severe Difficulty Uncoded 09/29/18 11:10 Breathing - Home Medications Home Medications: Ambulatory Orders Acetaminophen [Tylenol Extra Strength] 500 mg PO PRN PRN 09/29/18 Albuterol Sulfate Inhaler - [Ventolin Hfa Inhaler -] 1 - 2 inh PO QID PRN Atorvastatin Calcium [Lipitor] 20 mg PO DAILY 09/29/18 Budesonide/Formeterol Fumarate [SYMBICORT 160/4.5mcg -] 1 inh PO BID 09/29/18 Bupropion HCl 100 mg PO DAILY 09/29/18 Cetirizine HCl 10 mg PO DAILY 09/29/18 Cyclosporine [Restasis] 1 each OP DAILY 09/29/18 Famotidine [Pepcid] 40 mg PO DAILY 09/29/18 Fluticasone Propionate 2 spray NS BID 09/29/18 Ipratropium/Albuterol Sulfate [Iprat-Albut 0.5-3(2.5) mg/3 ml] 1 vial IH Q4H Lorazepam 1 mg PO PRN PRN 09/29/18 Montelukast Sodium [Singulair] 10 mg PO DAILY 09/29/18 predniSONE [Deltasone -] 10 mg PO ASDIR 09/29/18 Review of Systems - Review of Systems Constitutional: denies: Chills, Fever Eyes: denies: Blurred Vision, Eye Pain HENT: denies: Ear Discharge, Ear Pain, Throat Pain Neck: denies: Pain on Movement, Stiffness Cardiovascular: denies: Chest Pain, Edema, Palpitations Respiratory: reports: Cough, SOB, SOB on Exertion, Wheezing, Other (BEHZAD) Gastrointestinal: denies: Abdominal Pain, Diarrhea, Nausea, Vomiting Genitourinary: denies: Burning, Discharge Musculoskeletal: reports: Joint Pain (L shoulder (old)). denies: Back Pain Integumentary: reports: Bruising (old). denies: Blister Neurological: denies: Change in LOC, Change in Speech, Numbness Endocrine: denies: Excessive Sweating, Intolerance to Cold Psychiatric: denies: Anxiety, Depression Physical Examination Vital Signs: Vital Signs Temperature 98.4 F 09/29/18 20:00 Pulse Rate 100 H 09/29/18 20:00 Respiratory Rate 24 H 09/29/18 20:00 Blood Pressure 125/88 09/29/18 20:00 O2 Sat by Pulse Oximetry (%) 94 L 09/29/18 20:00 Constitutional: Yes: No Distress, Calm Eyes: Yes: Conjunctiva Clear, EOM Intact Neck: Yes: Trachea Midline. No: Lymphadenopathy Cardiovascular: Yes: Regular Rate and Rhythm, S1, S2 Respiratory: Yes: Regular, Rhonchi, Wheezes Gastrointestinal: Yes: Normal Bowel Sounds, Soft. No: Tenderness ...Rectal Exam: Yes: Deferred Renal/: No: CVA Tenderness - Left, CVA Tenderness - Right Breast(s): Yes: Other (deffered) Musculoskeletal: No: Back Pain, Joint Swelling Edema: Yes Edema: LLE: Trace, RLE: Trace Integumentary: Yes: Bruising. No: Erythema Neurological: Yes: Alert, Oriented, Other (motor and sensory examination is symmetric in UE/ LE/ face) Psychiatric: Yes: Alert, Oriented Labs: CBC, BMP 09/29/18 12:08 09/29/18 12:08 Imaging - Results Chest X-ray: Report Reviewed Problem List - Problems (1) Acute exacerbation of COPD with asthma Code(s): J44.1 - CHRONIC OBSTRUCTIVE PULMONARY DISEASE W (ACUTE) EXACERBATION; J45.901 - UNSPECIFIED ASTHMA WITH (ACUTE) EXACERBATION (2) Hypertension Code(s): I10 - ESSENTIAL (PRIMARY) HYPERTENSION (3) HLD (hyperlipidemia) Code(s): E78.5 - HYPERLIPIDEMIA, UNSPECIFIED (4) CHF (congestive heart failure) Code(s): I50.9 - HEART FAILURE, UNSPECIFIED Qualifiers: (5) MGUS (monoclonal gammopathy of unknown significance) Code(s): D47.2 - MONOCLONAL GAMMOPATHY Assessment/Plan IV Solu-Medrol Albuterol Nebulized IH Pulmonary consult [facility] labs
[2018-09-29] MEDS: BUDESONIDE/FORMETEROL FUMARATE 160/4.5 mcg INHALER IH SCH (23:37)
[2018-09-29] MEDS: FLUTICASONE PROP 0.05% 16 GM NASAL SPRAY NS SCH (23:37)
[2018-09-29] MEDS: methylPREDNISolone NA SUCC 40 MG/1 ML VIAL IVPUSH SCH (23:38)
[2018-09-30] MEDS: methylPREDNISolone NA SUCC 40 MG/1 ML VIAL IVPUSH SCH ×4 (03:19→20:24)
[2018-09-30 08:30] LABS: HEMATOCRIT 37.2 % (32.4-45.2); HEMOGLOBIN 11.3 GM/dL (10.7-15.3); MCH 22.9 pg (25.7-33.7); MCHC 30.3 g/dl (32.0-36.0); MEAN CELL VOLUME 75.6 fl (80-96); MEAN PLT VOLUME 7.5 fl (7.5-11.1); PLATELET COUNT 359 K/MM3 (134-434); RBC 4.91 M/mm3 (3.60-5.2); RDW 18.9 % (11.6-15.6); WHITE BLOOD COUNT 17.6 K/mm3 (4.0-10.0)
[2018-09-30 08:58] LABS: ALBUMIN 3.2 g/dl (3.4-5.0); ALK PHOS 56 U/L (45-117); ANION GAP 9 MMOL/L (8-16); BILIRUBIN,TOTAL 0.2 mg/dL (0.2-1); BLOOD UREA NITROGEN 17 mg/dL (7-18); CALCIUM 8.5 mg/dL (8.5-10.1); CHLORIDE 105 mmol/L (98-107); CO2 26 mmol/L (21-32); CREATININE 0.7 mg/dL (0.55-1.3); GLUCOSE,RANDOM 134 mg/dL (74-106); POTASSIUM 4.4 mmol/L (3.5-5.1); SGOT/AST 18 U/L (15-37); SGPT/ALT 26 U/L (13-61); SODIUM 140 mmol/L (136-145); TOT PROT 6.6 g/dl (6.4-8.2)
[2018-09-30] MEDS ORDERED: PT OWN MED DRAWER 7, Y5N ONE (09:25)
--- NOTE | 2018-09-30 09:37 | PN ---
Progress Note, Physician History of Present Illness: Pt is breathing a little better; + wheezing, cough (better). Pt w/o CP, palpitations, abd pain; + constipation. - Current Medication List Current Medications: Active Medications Albuterol Sulfate (Ventolin 0.083% Nebulizer Soln -) 1 amp NEB Q4H PRN PRN Reason: SHORT OF BREATH/WHEEZING Atorvastatin Calcium (Lipitor -) 20 mg PO HS [facility] Last Admin: 09/29/18 22:31 Dose: 20 mg Budesonide/Formoterol Fumarate (Symbicort 160/4.5mcg -) 2 puff IH BID [facility] Last Admin: 09/29/18 23:37 Dose: 2 puff Bupropion HCl (Wellbutrin -) 100 mg PO DAILY [facility] Last Admin: 09/29/18 22:31 Dose: Not Given Cyclobenzaprine HCl (Flexeril -) 10 mg PO Q8H PRN PRN Reason: MUSCLE SPASMS Ferrous Sulfate (Feosol -) 325 mg PO DAILY [facility] Fluticasone Propionate (Flonase -) 2 spray NS BID [facility] Last Admin: 09/29/18 23:37 Dose: 2 spray Loratadine (Claritin -) 10 mg PO DAILY [facility] Methylprednisolone Sodium Succinate (Solu-Medrol -) 40 mg IVPUSH Q6H-IV [facility] Last Admin: 09/30/18 08:43 Dose: 40 mg Montelukast Sodium (Singulair -) 10 mg PO [facility] Last Admin: 09/29/18 22:31 Dose: 10 mg Non-Formulary Medication (Cyclosporine [Restasis]) 1 each OU BID [facility] Ranitidine HCl (Zantac -) 300 mg PO DAILY [facility] - Objective Vital Signs: Vital Signs Temperature 98.5 F 09/30/18 06:51 Pulse Rate 96 H 09/30/18 06:51 Respiratory Rate 24 H 09/30/18 06:51 Blood Pressure 136/85 09/30/18 06:51 O2 Sat by Pulse Oximetry (%) 94 L 09/29/18 21:00 Constitutional: Yes: No Distress, Calm Cardiovascular: Yes: Regular Rate and Rhythm, S1, S2 Respiratory: Yes: Regular, Rhonchi, Wheezes Gastrointestinal: Yes: Normal Bowel Sounds, Soft. No: Tenderness Edema: LLE: Trace, RLE: Trace Neurological: Yes: Alert, Oriented Labs: CBC, BMP 09/30/18 07:00 09/30/18 07:00 Problem List - Problems (1) Acute exacerbation of COPD with asthma Code(s): J44.1 - CHRONIC OBSTRUCTIVE PULMONARY DISEASE W (ACUTE) EXACERBATION; J45.901 - UNSPECIFIED ASTHMA WITH (ACUTE) EXACERBATION (2) Hypertension Code(s): I10 - ESSENTIAL (PRIMARY) HYPERTENSION (3) HLD (hyperlipidemia) Code(s): E78.5 - HYPERLIPIDEMIA, UNSPECIFIED (4) Diabetes mellitus Code(s): E11.9 - TYPE 2 DIABETES MELLITUS WITHOUT COMPLICATIONS (5) Back pain Code(s): M54.9 - DORSALGIA, UNSPECIFIED Qualifiers: Back pain location: low back pain Chronicity: unspecified Back pain laterality: unspecified Sciatica presence: without sciatica Qualified Code(s ): M54.5 - Low back pain (6) CHF (congestive heart failure) Code(s): I50.9 - HEART FAILURE, UNSPECIFIED Qualifiers: (7) Rotator cuff disorder Code(s): M67.919 - UNSP DISORDER OF SYNOVIUM AND TENDON, UNSPECIFIED SHOULDER (8) MGUS (monoclonal gammopathy of unknown significance) Code(s): D47.2 - MONOCLONAL GAMMOPATHY (9) Shoulder pain, left Code(s): M25.512 - PAIN IN LEFT SHOULDER (10) Hypoalbuminemia Code(s): E88.09 - OTH DISORDERS OF PLASMA-PROTEIN METABOLISM, NEC Assessment/Plan IV Solu-Medrol Albuterol Nebulized IH Pulmonary consult Miralax OOBTC GI proph AM labs
[2018-09-30] MEDS: FERROUS SO4 325 MG TABLET (FP) PO SCH (09:46)
[2018-09-30] MEDS: RANITIDINE HCL 150 MG TABLET (FP) PO SCH (09:46)
[2018-09-30] MEDS: LORATADINE 10 MG TABLET PO SCH (09:46)
[2018-09-30] MEDS: POLYETHYLENE GLYCOL 3350 119 GM BTL PO SCH (09:47)
[2018-09-30] MEDS: BUDESONIDE/FORMETEROL FUMARATE 160/4.5 mcg INHALER IH SCH ×2 (09:47→21:37)
[2018-09-30] MEDS: FLUTICASONE PROP 0.05% 16 GM NASAL SPRAY NS SCH ×2 (09:47→21:37)
--- NOTE | 2018-09-30 10:37 | CON.PULM ---
Consult Consult Specialty:: PULMONARY Referred by:: PMD Reason for Consultation:: SOB/COPD/WHEEZE - History of Present Illness Chief Complaint: COUGH/MUCOUS/WHEEZE/SOB FLU LIKE SYMPTOMS History of Present Illness: The patient is a 63 year old female, with a significant PMH of asthma, COPD, hyperlipidemia, hypertension, CHF (diastolic dysfunction), MGUS, peripheral neuropathy, GERD, hypothyroidism,chronic steroid use due to asthma, who presents to the emergency department with asthma exacerbation beginning 48 hours ship [employer]. The patient states she received Decadron from EMS prior to arrival in the ED. The patient states she has not been feeling well for 2 days and had a productive cough with yellow sputum. The patient states she is on prednisone 80 mg for 4 days by pmd and a low dose of azithromycin. The patient denies any recent sick contacts or travel. The patient states she did receive a flu shot earlier this year. - History Source History Provided By: Patient, Medical Record Limitations to Obtaining History: No Limitations - Past Medical History [employer]: Yes: Peripheral Neuropathy (left hand) Cardio/Vascular: Yes: CHF (Diastolic) Pulmonary: Yes: Asthma, COPD, Other (Former Smoker. Pneumothorax) Gastrointestinal: Yes: GERD ...: No Endocrine: Yes: Hypothyroidism - Alcohol/Substance Use Hx Alcohol Use: No - Smoking History Smoking history: Former smoker Have you smoked in the past 12 months: No Aproximately how many cigarettes per day: 1 If you are a former smoker, when did you quit?: 02/17 - Social History Usual Living Arrangement: Alone ADL: Independent Place of : [facility] History of Recent Travel: No Home Medications - Allergies Allergies/Adverse Reactions: Allergies Allergy/AdvReac Type Severity Reaction Status Date / Time Quinolones Allergy Severe Difficulty Verified 09/29/18 11:10 Breathing Penicillins Allergy Intermediate Rash Verified 09/29/18 11:10 fluoroquinolones Allergy Severe Difficulty Uncoded 09/29/18 11:10 Breathing - Home Medications Home Medications: Ambulatory Orders Acetaminophen [Tylenol Extra Strength] 500 mg PO PRN PRN 09/29/18 Albuterol Sulfate Inhaler - [Ventolin Hfa Inhaler -] 1 - 2 inh PO QID PRN Atorvastatin Calcium [Lipitor] 20 mg PO DAILY 09/29/18 Budesonide/Formeterol Fumarate [SYMBICORT 160/4.5mcg -] 1 inh PO BID 09/29/18 Bupropion HCl 100 mg PO DAILY 09/29/18 Cetirizine HCl 10 mg PO DAILY 09/29/18 Cyclosporine [Restasis] 1 each OP DAILY 09/29/18 Famotidine [Pepcid] 40 mg PO DAILY 09/29/18 Fluticasone Propionate 2 spray NS BID 09/29/18 Ipratropium/Albuterol Sulfate [Iprat-Albut 0.5-3(2.5) mg/3 ml] 1 vial IH Q4H Lorazepam 1 mg PO PRN PRN 09/29/18 Montelukast Sodium [Singulair] 10 mg PO DAILY 09/29/18 predniSONE [Deltasone -] 10 mg PO [facility]IR 09/29/18 Family Disease History - Family Disease History Family History: Unremarkable Review of Systems - Review of Systems Constitutional: reports: Chills, Fever, Lethargy, Loss of Appetite, Malaise Eyes: reports: No Symptoms HENT: reports: Nasal Congestion Neck: reports: No Symptoms Cardiovascular: denies: Chest Pain Respiratory: reports: Cough, Exercise Intolerance, SOB, SOB on Exertion, Wheezing. denies: Hemoptysis, Orthopnea Gastrointestinal: denies: Abdominal Pain Genitourinary: denies: Burning Breasts: reports: No Symptoms Reported Musculoskeletal: reports: No Symptoms Physical Exam Vital Sings: Vital Signs Temperature 98.5 F 09/30/18 06:51 Pulse Rate 96 H 09/30/18 06:51 Respiratory Rate 24 H 09/30/18 06:51 Blood Pressure 136/85 09/30/18 06:51 O2 Sat by Pulse Oximetry (%) 94 L 09/29/18 21:00 Constitutional: Yes: Anxious Eyes: Yes: EOM Intact HENT: Yes: Normocephalic Neck: Yes: Trachea Midline Cardiovascular: Yes: Regular Rate and Rhythm, S1, S2 Respiratory: Yes: Cough, On Nasal O2, Rhonchi, Wheezes ...Clubbing: No Gastrointestinal: Yes: Normal Bowel Sounds Edema: No Labs: CBC, BMP 09/30/18 07:00 09/30/18 07:00 Imaging - Results Chest X-ray: Report Reviewed Problem List - Problems (1) Acute bronchitis Code(s): J20.9 - ACUTE BRONCHITIS, UNSPECIFIED (2) COPD (chronic obstructive pulmonary disease) Code(s): J44.9 - CHRONIC OBSTRUCTIVE PULMONARY DISEASE, UNSPECIFIED Qualifiers: COPD type: COPD with acute exacerbation Qualified Code(s): J44.1 - Chronic obstructive pulmonary disease with (acute) exacerbation (3) HLD (hyperlipidemia) Code(s): E78.5 - HYPERLIPIDEMIA, UNSPECIFIED (4) Hypertension Code(s): I10 - ESSENTIAL (PRIMARY) HYPERTENSION (5) Acute exacerbation of COPD with asthma Code(s): J44.1 - CHRONIC OBSTRUCTIVE PULMONARY DISEASE W (ACUTE) EXACERBATION; J45.901 - UNSPECIFIED ASTHMA WITH (ACUTE) EXACERBATION (6) Acute on chronic respiratory failure with hypoxia Code(s): J96.21 - ACUTE AND CHRONIC RESPIRATORY FAILURE WITH HYPOXIA (7) Asthma Code(s): J45.909 - UNSPECIFIED ASTHMA, UNCOMPLICATED Qualifiers: Asthma severity: moderate Asthma persistence: persistent Asthma complication type: with acute exacerbation Qualified Code(s): J45.41 - Moderate persistent asthma with (acute) exacerbation (8) Asthma exacerbation Code(s): J45.901 - UNSPECIFIED ASTHMA WITH (ACUTE) EXACERBATION Assessment/Plan Viral like symptoms preceding acute on chronic exacerbation of copd/bronchospasm Chronic high dose steroid use/daily zithromax for prophylaxsis Multiple co-morbid conditions as listed o2 supplementation urine antigens for legionella/strep multiple antibiotic allergies stress dose steroids/bronchodilators/singulair will ask ID jeannie MARSH MD
--- NOTE | 2018-09-30 14:12 | PN ---
Progress Note (short form) - Note Progress Note: ID Consult dictated Acute exacerbation asthma/COPD Bronchitis R/O pneumonia Leukocytosis- multifactorial (infection/ steroids) PCN/FQ allergies Await c/s Empiric vancomycin/ aztreonam
[2018-09-30] MEDS: TIOTROPIUM BROMIDE 2.5 MCG (SPIRIVA) RESPIMAT INHALER IH SCH (14:31)
[2018-09-30] MEDS: buPROPion HCL 100 MG TABLET PO SCH (14:32)
--- NOTE | 2018-09-30 14:55 | CONS ---
DATE OF CONSULTATION: DATE OF DICTATION: 09/30/2018 HISTORY: The patient is a 63-year-old asthmatic female evaluated for possible pneumonia. The patient has a history of oxygen-dependent COPD and bronchial asthma. She was admitted to the hospital on September 29, 2018 with approximately a 2- to 3-day history of worsening shortness of breath and wheezing. The patient had developed shortness of breath associated with wheeze, cough productive of yellowish sputum, and generalized malaise. She had not been feeling well for 2 days prior to admission. She had seen her primary care doctor and prescribed prednisone 80 mg for 4 days with Zithromax. Despite the antibiotic therapy and steroids, her symptoms worsened. She presented to the hospital where she was admitted for an acute exacerbation of COPD. She reports cough productive of yellowish sputum. She denies any hemoptysis. No complaints of chest pain. PAST MEDICAL HISTORY: Positive for oxygen-dependent COPD, hypertension, hyperlipidemia, bronchial asthma, congestive heart failure, peripheral neuropathy, gastroesophageal reflux, MGUS. ALLERGIES: PENICILLIN and FLUOROQUINOLONES. The patient states that her mother told her in childhood that she was allergic to PENICILLIN. No clear history of anaphylaxis with regard to FLUOROQUINOLONE allergy. The patient reports breathing difficulty. MEDICATIONS: Include cyclosporine eye drops, Symbicort, Medrol, Wellbutrin, Flexeril, Flonase, Zantac, Lipitor, Feosol, Singulair, Claritin. SOCIAL HISTORY: She resides at home. She is a former smoker. She denies ill contacts. No recent travel. No recent hospitalizations. SYSTEMS REVIEW: Neurologic: No loss of consciousness, seizure activity, focal weakness. Cardiac: Negative chest pain or palpitations. Respiratory: As per HPI. Gastrointestinal: Negative vomiting or diarrhea. Genitourinary: Negative for urinary tract infection. LABORATORY DATA: White count on admission 19.1, hematocrit 37.2, platelet count 359, creatinine 0.7. Influenza swab negative. Chest x-ray, enlarged heart. No focal infiltrate. PHYSICAL EXAMINATION: General: She is in moderate respiratory distress secondary to asthma exacerbation. Vital Signs: Temperature 97.7, blood pressure 135/76, pulse 98 and regular, respirations 22 per minute. HEENT: Sclerae anicteric. Oropharynx negative. Neck: Supple. Heart: Sounds S1, S2. Lungs: Bilateral wheezing and coarse rhonchi especially at the bases. Abdomen: Soft and nontender. Extremities: Negative for edema. IMPRESSION: 1. Acute exacerbation of asthma, chronic obstructive pulmonary disease. 2. Bronchitis, rule out pneumonia. 3. PENICILLIN and FLUOROQUINOLONE allergies. 4. Leukocytosis, multifactorial (steroid infection). PLAN: Await cultures. Obtain urine Legionella antigen. Sputum culture. Empiric antibiotic coverage in this PENICILLIN-allergic patient with vancomycin and Azactam. The patient has tolerated Azactam in the past. We will follow. Thank you for the kind referral. NANCY CESAR M.D. [id number]
[2018-09-30] MEDS: VANCOMYCIN 1 GRAM (PRE-DOCKED) 1,000 MG/250 ML BAG IVPB SCH (15:20)
[2018-09-30] MEDS: AZTREONAM 1 GM in DEXTROSE 5%-WATER - 50 ML IVPB SCH ×2 (18:21→18:22)
[2018-09-30] MEDS: MONTELUKAST NA 10 MG TABLET PO SCH (21:36)
[2018-09-30] MEDS: ATORVASTATIN CA 20 MG TABLET (FP) PO SCH (21:36)
[2018-10-01] MEDS ORDERED: PT OWN MED DRAWER 7, Y5N ONE ×2 (02:28→09:34)
[2018-10-01] MEDS: AZTREONAM 1 GM in DEXTROSE 5%-WATER - 50 ML IVPB SCH ×3 (02:30→17:33)
[2018-10-01] MEDS: methylPREDNISolone NA SUCC 40 MG/1 ML VIAL IVPUSH SCH ×4 (02:30→21:31)
[2018-10-01] MEDS: VANCOMYCIN 1 GRAM (PRE-DOCKED) 1,000 MG/250 ML BAG IVPB SCH ×2 (03:22→14:00)
[2018-10-01] MEDS: ALBUTEROL SO4 0.083% IH SOL 2.5 MG/3 ML VIAL.NEB. NEB PRN ×3 (04:07→20:20)
[2018-10-01 07:22] LABS: HEMATOCRIT 36.5 % (32.4-45.2); MCH 22.7 pg (25.7-33.7); MCHC 30.2 g/dl (32.0-36.0); MEAN CELL VOLUME 75.3 fl (80-96); MEAN PLT VOLUME 7.6 fl (7.5-11.1); PLATELET COUNT 372 K/MM3 (134-434); RBC 4.84 M/mm3 (3.60-5.2); WHITE BLOOD COUNT 23.1 K/mm3 (4.0-10.0)
[2018-10-01 07:48] LABS: ANION GAP 8 MMOL/L (8-16); BLOOD UREA NITROGEN 16 mg/dL (7-18); CALCIUM 7.9 mg/dL (8.5-10.1); CHLORIDE 105 mmol/L (98-107); CO2 27 mmol/L (21-32); CREATININE 0.7 mg/dL (0.55-1.3); GLUCOSE,RANDOM 193 mg/dL (74-106); POTASSIUM 4.1 mmol/L (3.5-5.1); SODIUM 140 mmol/L (136-145)
[2018-10-01] MEDS: LORATADINE 10 MG TABLET PO SCH (09:45)
[2018-10-01] MEDS: buPROPion HCL 100 MG TABLET PO SCH (09:45)
[2018-10-01] MEDS: RANITIDINE HCL 150 MG TABLET (FP) PO SCH (09:45)
[2018-10-01] MEDS: FERROUS SO4 325 MG TABLET (FP) PO SCH (09:46)
[2018-10-01] MEDS: POLYETHYLENE GLYCOL 3350 119 GM BTL PO SCH (09:46)
[2018-10-01] MEDS: BUDESONIDE/FORMETEROL FUMARATE 160/4.5 mcg INHALER IH SCH ×2 (09:46→21:33)
[2018-10-01] MEDS: FLUTICASONE PROP 0.05% 16 GM NASAL SPRAY NS SCH ×2 (09:47→21:33)
[2018-10-01] MEDS: TIOTROPIUM BROMIDE 2.5 MCG (SPIRIVA) RESPIMAT INHALER IH SCH (09:47)
--- NOTE | 2018-10-01 10:36 | PN ---
Progress Note (short form) - Note Progress Note: PULMONARY SUBJECTIVE IMPROVEMENT VSS ANICTERIC/CUSHINOID FEATURES B/L WHEEZES S1S2 BS+ NO EDEMA LABS/MEDS/NOTES/MICRO REVIEWED Viral like symptoms preceding acute on chronic exacerbation of copd/bronchospasm Chronic high dose steroid use/daily zithromax for prophylaxsis Multiple co-morbid conditions o2 supplementation urine antigens for legionella/strep pending multiple antibiotic allergies stress dose steroids/bronchodilators/singulair antibiotics as per LOU MARSH MD Problem List - Problems (1) Acute bronchitis Code(s): J20.9 - ACUTE BRONCHITIS, UNSPECIFIED (2) COPD (chronic obstructive pulmonary disease) Code(s): J44.9 - CHRONIC OBSTRUCTIVE PULMONARY DISEASE, UNSPECIFIED Qualifiers: COPD type: COPD with acute exacerbation Qualified Code(s): J44.1 - Chronic obstructive pulmonary disease with (acute) exacerbation (3) HLD (hyperlipidemia) Code(s): E78.5 - HYPERLIPIDEMIA, UNSPECIFIED (4) Hypertension Code(s): I10 - ESSENTIAL (PRIMARY) HYPERTENSION (5) Acute exacerbation of COPD with asthma Code(s): J44.1 - CHRONIC OBSTRUCTIVE PULMONARY DISEASE W (ACUTE) EXACERBATION; J45.901 - UNSPECIFIED ASTHMA WITH (ACUTE) EXACERBATION (6) Acute on chronic respiratory failure with hypoxia Code(s): J96.21 - ACUTE AND CHRONIC RESPIRATORY FAILURE WITH HYPOXIA (7) Asthma Code(s): J45.909 - UNSPECIFIED ASTHMA, UNCOMPLICATED Qualifiers: Asthma severity: moderate Asthma persistence: persistent Asthma complication type: with acute exacerbation Qualified Code(s): J45.41 - Moderate persistent asthma with (acute) exacerbation (8) Asthma exacerbation Code(s): J45.901 - UNSPECIFIED ASTHMA WITH (ACUTE) EXACERBATION
--- NOTE | 2018-10-01 11:47 | PN ---
Progress Note (short form) - Note Progress Note: reports improvement still diffusely wheezing Vital Signs Period Temp Pulse Resp BP Sys/Stringer Pulse Ox Last 24 Hr 97.7 F-98.2 F 93-96 20-21 134-146/86-92 97 cor-rrr lungs bilateral wheezing abd soft,nt ext no edema CBC, BMP 10/01/18 07:00 10/01/18 07:00 cultures pending urinary antigens pending influenza screen negative a/p acute exacerbation copd r/o bronchitis/pneumonia multliple antibiotic allergies continue vanco/azactam check vancomycin trough before fourth dose check rsv antigen
--- NOTE | 2018-10-01 14:28 | PN ---
Progress Note, Physician History of Present Illness: Pt is breathing a little better; + wheezing, cough (better). Pt w/o CP, palpitations, abd pain. Pt still w constipation, had one BM - Current Medication List Current Medications: Active Medications Albuterol Sulfate (Ventolin 0.083% Nebulizer Soln -) 1 amp NEB Q4H PRN PRN Reason: SHORT OF BREATH/WHEEZING Last Admin: 10/01/18 04:07 Dose: 1 amp Atorvastatin Calcium (Lipitor -) 20 mg PO HS [facility] Last Admin: 09/30/18 21:36 Dose: 20 mg Budesonide/Formoterol Fumarate (Symbicort 160/4.5mcg -) 2 puff IH BID [facility] Last Admin: 10/01/18 09:46 Dose: 2 puff Bupropion HCl (Wellbutrin -) 100 mg PO DAILY [facility] Last Admin: 10/01/18 09:45 Dose: 100 mg Cyclobenzaprine HCl (Flexeril -) 10 mg PO Q8H PRN PRN Reason: MUSCLE SPASMS Ferrous Sulfate (Feosol -) 325 mg PO DAILY [facility] Last Admin: 10/01/18 09:46 Dose: 325 mg Fluticasone Propionate (Flonase -) 2 spray NS BID [facility] Last Admin: 10/01/18 09:47 Dose: 2 spray Vancomycin HCl (Vancomycin (Pre-Docked)) 1,000 mg in 250 mls @ 166.667 mls/hr IVPB BID@0300,1500 [facility]; Protocol Last Admin: 10/01/18 14:00 Dose: 166.667 mls/hr Aztreonam 1 gm/ Dextrose 50 mls @ 100 mls/hr IVPB Q8H-IV [facility]; Protocol Last Admin: 10/01/18 09:45 Dose: 100 mls/hr Loratadine (Claritin -) 10 mg PO DAILY [facility] Last Admin: 10/01/18 09:45 Dose: 10 mg Methylprednisolone Sodium Succinate (Solu-Medrol -) 40 mg IVPUSH Q6H-IV [facility] Last Admin: 10/01/18 14:00 Dose: 40 mg Montelukast Sodium (Singulair -) 10 mg PO HS [facility] Last Admin: 09/30/18 21:36 Dose: 10 mg Non-Formulary Medication (Cyclosporine [Restasis]) 1 each OU BID [facility] Polyethylene Glycol (Miralax (For Daily Use) -) 17 gm PO DAILY [facility] Last Admin: 10/01/18 09:46 Dose: 17 gm Ranitidine HCl (Zantac -) 300 mg PO DAILY [facility] Last Admin: 10/01/18 09:45 Dose: 300 mg Tiotropium [place] (Spiriva Respimat) 2 puff IH DAILY [facility] Last Admin: 10/01/18 09:47 Dose: 2 puff - Objective Vital Signs: Vital Signs Temperature 97.7 F 10/01/18 06:33 Pulse Rate 93 H 10/01/18 06:33 Respiratory Rate 20 10/01/18 06:33 Blood Pressure 134/86 10/01/18 06:33 O2 Sat by Pulse Oximetry (%) 97 09/30/18 21:00 Constitutional: Yes: No Distress, Calm Cardiovascular: Yes: Regular Rate and Rhythm, S1, S2 Respiratory: Yes: Regular, Rhonchi, Wheezes Gastrointestinal: Yes: Normal Bowel Sounds, Soft. No: Tenderness Edema: No Neurological: Yes: Alert, Oriented Labs: CBC, BMP 10/01/18 07:00 10/01/18 07:00 Problem List - Problems (1) Acute exacerbation of COPD with asthma Code(s): J44.1 - CHRONIC OBSTRUCTIVE PULMONARY DISEASE W (ACUTE) EXACERBATION; J45.901 - UNSPECIFIED ASTHMA WITH (ACUTE) EXACERBATION (2) Hypertension Code(s): I10 - ESSENTIAL (PRIMARY) HYPERTENSION (3) HLD (hyperlipidemia) Code(s): E78.5 - HYPERLIPIDEMIA, UNSPECIFIED (4) CHF (congestive heart failure) Code(s): I50.9 - HEART FAILURE, UNSPECIFIED Qualifiers: (5) MGUS (monoclonal gammopathy of unknown significance) Code(s): D47.2 - MONOCLONAL GAMMOPATHY Assessment/Plan IV Solu-Medrol Albuterol Nebulized IH Pulmonary, ID consults and f/u are appreciated Add Ailyn Chong GI proph AM labs
[2018-10-01] MEDS ORDERED: DOCUSATE SODIUM 100 MG CAPSULE (FP) PO ONE (15:21)
[2018-10-01] MEDS: MONTELUKAST NA 10 MG TABLET PO SCH (21:31)
[2018-10-01] MEDS: ATORVASTATIN CA 20 MG TABLET (FP) PO SCH (21:31)
[2018-10-01] MEDS: SENNOSIDES 8.6MG TABLET (FP) PO SCH (21:31)
[2018-10-02] MEDS: AZTREONAM 1 GM in DEXTROSE 5%-WATER - 50 ML IVPB SCH ×3 (01:38→17:50)
[2018-10-02] MEDS: methylPREDNISolone NA SUCC 40 MG/1 ML VIAL IVPUSH SCH ×3 (02:45→17:49)
[2018-10-02] MEDS: VANCOMYCIN 1 GRAM (PRE-DOCKED) 1,000 MG/250 ML BAG IVPB SCH ×2 (02:47→15:38)
[2018-10-02 07:37] LABS: HEMATOCRIT 35.6 % (32.4-45.2); HEMOGLOBIN 11.1 GM/dL (10.7-15.3); MCH 23.2 pg (25.7-33.7); MCHC 31.1 g/dl (32.0-36.0); MEAN CELL VOLUME 74.6 fl (80-96); MEAN PLT VOLUME 7.1 fl (7.5-11.1); PLATELET COUNT 371 K/MM3 (134-434); RBC 4.77 M/mm3 (3.60-5.2); RDW 18.8 % (11.6-15.6); WHITE BLOOD COUNT 20.5 K/mm3 (4.0-10.0)
[2018-10-02 08:31] LABS: ANION GAP 8 MMOL/L (8-16); BLOOD UREA NITROGEN 17 mg/dL (7-18); CALCIUM 8.4 mg/dL (8.5-10.1); CHLORIDE 104 mmol/L (98-107); CO2 28 mmol/L (21-32); CREATININE 0.6 mg/dL (0.55-1.3); GLUCOSE,RANDOM 129 mg/dL (74-106); POTASSIUM 4.2 mmol/L (3.5-5.1); SODIUM 140 mmol/L (136-145)
[2018-10-02] MEDS ORDERED: PT OWN MED DRAWER 7, Y5N ONE ×2 (10:20→17:36)
[2018-10-02] MEDS: RANITIDINE HCL 150 MG TABLET (FP) PO SCH (10:21)
[2018-10-02] MEDS: FERROUS SO4 325 MG TABLET (FP) PO SCH (10:21)
[2018-10-02] MEDS: DOCUSATE SODIUM 100 MG CAPSULE (FP) PO SCH (10:21)
[2018-10-02] MEDS: LORATADINE 10 MG TABLET PO SCH (10:22)
[2018-10-02] MEDS: BUDESONIDE/FORMETEROL FUMARATE 160/4.5 mcg INHALER IH SCH ×2 (10:23→21:23)
[2018-10-02] MEDS: TIOTROPIUM BROMIDE 2.5 MCG (SPIRIVA) RESPIMAT INHALER IH SCH (10:23)
[2018-10-02] MEDS: buPROPion HCL 100 MG TABLET PO SCH (10:23)
[2018-10-02] MEDS: FLUTICASONE PROP 0.05% 16 GM NASAL SPRAY NS SCH ×2 (10:23→21:23)
[2018-10-02] MEDS: POLYETHYLENE GLYCOL 3350 119 GM BTL PO SCH (10:44)
--- NOTE | 2018-10-02 11:52 | PN ---
Progress Note, Physician History of Present Illness: Pt is breathing better; pt with decreased in wheezing, cough. Pt w/o CP, palpitations, abd pain. Pt with BM - Current Medication List Current Medications: Active Medications Albuterol Sulfate (Ventolin 0.083% Nebulizer Soln -) 1 amp NEB Q4H PRN PRN Reason: SHORT OF BREATH/WHEEZING Last Admin: 10/01/18 20:20 Dose: 1 amp Atorvastatin Calcium (Lipitor -) 20 mg PO HS [facility] Last Admin: 10/01/18 21:31 Dose: 20 mg Budesonide/Formoterol Fumarate (Symbicort 160/4.5mcg -) 2 puff IH BID [facility] Last Admin: 10/02/18 10:23 Dose: 2 puff Bupropion HCl (Wellbutrin -) 100 mg PO DAILY [facility] Last Admin: 10/02/18 10:23 Dose: 100 mg Cyclobenzaprine HCl (Flexeril -) 10 mg PO Q8H PRN PRN Reason: MUSCLE SPASMS Docusate Sodium (Colace -) 100 mg PO DAILY [facility] Last Admin: 10/02/18 10:21 Dose: 100 mg Ferrous Sulfate (Feosol -) 325 mg PO DAILY [facility] Last Admin: 10/02/18 10:21 Dose: 325 mg Fluticasone Propionate (Flonase -) 2 spray NS BID [facility] Last Admin: 10/02/18 10:23 Dose: 2 spray Vancomycin HCl (Vancomycin (Pre-Docked)) 1,000 mg in 250 mls @ 166.667 mls/hr IVPB BID@0300,1500 [facility]; Protocol Last Admin: 10/02/18 02:47 Dose: 166.667 mls/hr Aztreonam 1 gm/ Dextrose 50 mls @ 100 mls/hr IVPB Q8H-IV [facility]; Protocol Last Admin: 10/02/18 10:22 Dose: 100 mls/hr Loratadine (Claritin -) 10 mg PO DAILY [facility] Last Admin: 10/02/18 10:22 Dose: 10 mg Methylprednisolone Sodium Succinate (Solu-Medrol -) 40 mg IVPUSH Q6H-IV [facility] Last Admin: 10/02/18 10:22 Dose: 40 mg Montelukast Sodium (Singulair -) 10 mg PO HS [facility] Last Admin: 10/01/18 21:31 Dose: 10 mg Non-Formulary Medication (Cyclosporine [Restasis]) 1 each OU BID [facility] Polyethylene Glycol (Miralax (For Daily Use) -) 17 gm PO DAILY [facility] Last Admin: 10/02/18 10:44 Dose: 17 gm Ranitidine HCl (Zantac -) 300 mg PO DAILY [facility] Last Admin: 10/02/18 10:21 Dose: 300 mg Senna (Senna -) 2 tab PO HS [facility] Last Admin: 10/01/18 21:31 Dose: 2 tab Tiotropium [place] (Spiriva Respimat) 2 puff IH DAILY [facility] Last Admin: 10/02/18 10:23 Dose: 2 puff - Objective Vital Signs: Vital Signs Temperature 97.7 F 10/02/18 06:00 Pulse Rate 79 10/02/18 06:00 Respiratory Rate 20 10/02/18 06:00 Blood Pressure 136/80 10/02/18 06:00 O2 Sat by Pulse Oximetry (%) 97 10/01/18 21:00 Constitutional: Yes: No Distress, Calm Cardiovascular: Yes: Regular Rate and Rhythm, S1, S2 Respiratory: Yes: Regular, Rhonchi (minimal) Gastrointestinal: Yes: Normal Bowel Sounds, Soft. No: Tenderness Edema: LLE: Trace, RLE: Trace Neurological: Yes: Alert, Oriented Labs: CBC, BMP 10/02/18 07:30 10/02/18 07:30 Problem List - Problems (1) Acute exacerbation of COPD with asthma Code(s): J44.1 - CHRONIC OBSTRUCTIVE PULMONARY DISEASE W (ACUTE) EXACERBATION; J45.901 - UNSPECIFIED ASTHMA WITH (ACUTE) EXACERBATION (2) Hypertension Code(s): I10 - ESSENTIAL (PRIMARY) HYPERTENSION (3) HLD (hyperlipidemia) Code(s): E78.5 - HYPERLIPIDEMIA, UNSPECIFIED (4) CHF (congestive heart failure) Code(s): I50.9 - HEART FAILURE, UNSPECIFIED Qualifiers: (5) MGUS (monoclonal gammopathy of unknown significance) Code(s): D47.2 - MONOCLONAL GAMMOPATHY Assessment/Plan IV Solu-Medrol -to joseph Albuterol Nebulized IH Pulmonary, ID consults and f/u are appreciated OOBTC GI proph AM labs Case was d/w pt's nurse.
[2018-10-02] MEDS ORDERED: methylPREDNISolone NA SUCC 40 MG/1 ML VIAL IVPUSH SCH (18:00)
[2018-10-02] MEDS: ALBUTEROL SO4 0.083% IH SOL 2.5 MG/3 ML VIAL.NEB. NEB PRN (18:31)
[2018-10-02] MEDS ORDERED: MAG HYDROX/AL HYDROX/SIMETH 30 ML UNIT-DOSE CUP PO PRN (21:17)
[2018-10-02] MEDS: SENNOSIDES 8.6MG TABLET (FP) PO SCH (21:21)
[2018-10-02] MEDS: MONTELUKAST NA 10 MG TABLET PO SCH (21:21)
[2018-10-02] MEDS: ATORVASTATIN CA 20 MG TABLET (FP) PO SCH (21:21)
[2018-10-03] MEDS: methylPREDNISolone NA SUCC 40 MG/1 ML VIAL IVPUSH SCH ×3 (01:23→15:18)
[2018-10-03] MEDS: AZTREONAM 1 GM in DEXTROSE 5%-WATER - 50 ML IVPB SCH ×3 (01:23→17:34)
[2018-10-03] MEDS: VANCOMYCIN 1 GRAM (PRE-DOCKED) 1,000 MG/250 ML BAG IVPB SCH ×2 (02:22→19:08)
[2018-10-03 06:26] LABS: HEMATOCRIT 35.3 % (32.4-45.2); HEMOGLOBIN 10.9 GM/dL (10.7-15.3); MCHC 30.8 g/dl (32.0-36.0); MEAN CELL VOLUME 74.4 fl (80-96); MEAN PLT VOLUME 7.5 fl (7.5-11.1); PLATELET COUNT 350 K/MM3 (134-434); RBC 4.75 M/mm3 (3.60-5.2); RDW 18.9 % (11.6-15.6); WHITE BLOOD COUNT 18.3 K/mm3 (4.0-10.0)
[2018-10-03 06:59] LABS: ANION GAP 6 MMOL/L (8-16); BLOOD UREA NITROGEN 21 mg/dL (7-18); CALCIUM 8.3 mg/dL (8.5-10.1); CHLORIDE 105 mmol/L (98-107); CO2 29 mmol/L (21-32); CREATININE 0.6 mg/dL (0.55-1.3); GLUCOSE,RANDOM 129 mg/dL (74-106); POTASSIUM 4.2 mmol/L (3.5-5.1); SODIUM 140 mmol/L (136-145)
[2018-10-03] MEDS: FLUTICASONE PROP 0.05% 16 GM NASAL SPRAY NS SCH ×2 (10:51→22:58)
[2018-10-03] MEDS: TIOTROPIUM BROMIDE 2.5 MCG (SPIRIVA) RESPIMAT INHALER IH SCH (10:51)
[2018-10-03] MEDS: BUDESONIDE/FORMETEROL FUMARATE 160/4.5 mcg INHALER IH SCH ×2 (10:51→22:58)
[2018-10-03] MEDS: RANITIDINE HCL 150 MG TABLET (FP) PO SCH (10:52)
[2018-10-03] MEDS: DOCUSATE SODIUM 100 MG CAPSULE (FP) PO SCH (10:52)
[2018-10-03] MEDS: FERROUS SO4 325 MG TABLET (FP) PO SCH (10:52)
[2018-10-03] MEDS: buPROPion HCL 100 MG TABLET PO SCH (10:52)
[2018-10-03] MEDS: LORATADINE 10 MG TABLET PO SCH (10:52)
[2018-10-03] MEDS: ALBUTEROL SO4 0.083% IH SOL 2.5 MG/3 ML VIAL.NEB. NEB PRN (11:30)
[2018-10-03] MEDS: POLYETHYLENE GLYCOL 3350 119 GM BTL PO SCH (12:20)
--- NOTE | 2018-10-03 12:28 | PN ---
Progress Note, Physician History of Present Illness: Seated in bed Appears more comfortable Reports less cough/ sputum production No c/o fever/ chills Afebrile with elevated WBC on steroids BC (-) Sputum normal yoel Legionella/ pneumococcal ag (-) - Current Medication List Current Medications: Active Medications Al Hydroxide/Mg Hydroxide (Mylanta Oral Suspension -) 30 ml PO BID PRN PRN Reason: INDIGESTION Last Admin: 10/02/18 21:25 Dose: 30 ml Albuterol Sulfate (Ventolin 0.083% Nebulizer Soln -) 1 amp NEB Q4H PRN PRN Reason: SHORT OF BREATH/WHEEZING Last Admin: 10/02/18 18:31 Dose: 1 amp Atorvastatin Calcium (Lipitor -) 20 mg PO HS [facility] Last Admin: 10/02/18 21:21 Dose: 20 mg Budesonide/Formoterol Fumarate (Symbicort 160/4.5mcg -) 2 puff IH BID [facility] Last Admin: 10/03/18 10:51 Dose: 2 puff Bupropion HCl (Wellbutrin -) 100 mg PO DAILY [facility] Last Admin: 10/03/18 10:52 Dose: 100 mg Cyclobenzaprine HCl (Flexeril -) 10 mg PO Q8H PRN PRN Reason: MUSCLE SPASMS Docusate Sodium (Colace -) 100 mg PO DAILY [facility] Last Admin: 10/03/18 10:52 Dose: 100 mg Ferrous Sulfate (Feosol -) 325 mg PO DAILY [facility] Last Admin: 10/03/18 10:52 Dose: 325 mg Fluticasone Propionate (Flonase -) 2 spray NS BID [facility] Last Admin: 10/03/18 10:51 Dose: 2 spray Vancomycin HCl (Vancomycin (Pre-Docked)) 1,000 mg in 250 mls @ 166.667 mls/hr IVPB BID@0300,1500 [facility]; Protocol Last Admin: 10/03/18 02:22 Dose: 166.667 mls/hr Aztreonam 1 gm/ Dextrose 50 mls @ 100 mls/hr IVPB Q8H-IV [facility]; Protocol Last Admin: 10/03/18 10:51 Dose: 100 mls/hr Loratadine (Claritin -) 10 mg PO DAILY [facility] Last Admin: 10/03/18 10:52 Dose: 10 mg Methylprednisolone Sodium Succinate (Solu-Medrol -) 20 mg IVPUSH Q8H-IV [facility] Last Admin: 10/03/18 10:52 Dose: 20 mg Montelukast Sodium (Singulair -) 10 mg PO HS [facility] Last Admin: 10/02/18 21:21 Dose: 10 mg Non-Formulary Medication (Cyclosporine [Restasis]) 1 each OU BID [facility] Polyethylene Glycol (Miralax (For Daily Use) -) 17 gm PO DAILY [facility] Last Admin: 10/03/18 12:20 Dose: 17 gm Ranitidine HCl (Zantac -) 300 mg PO DAILY [facility] Last Admin: 10/03/18 10:52 Dose: 300 mg Senna (Senna -) 2 tab PO HS [facility] Last Admin: 10/02/18 21:21 Dose: 2 tab Tiotropium [place] (Spiriva Respimat) 2 puff IH DAILY [facility] Last Admin: 10/03/18 10:51 Dose: 2 puff - Objective Vital Signs: Vital Signs Temperature 97.8 F 10/03/18 06:40 Pulse Rate 80 10/03/18 06:40 Respiratory Rate 18 10/03/18 06:40 Blood Pressure 142/84 10/03/18 06:40 O2 Sat by Pulse Oximetry (%) 97 10/02/18 21:00 Constitutional: Yes: No Distress Eyes: Yes: Conjunctiva Clear Cardiovascular: Yes: Regular Rate and Rhythm, S1, S2 Respiratory: Yes: Wheezes, Other (+ mild wheeze bilaterally) Gastrointestinal: Yes: Normal Bowel Sounds, Soft. No: Tenderness Edema: Yes Edema: LLE: 1+, RLE: 1+ Labs: CBC, BMP 10/03/18 05:35 10/03/18 05:35 Assessment/Plan Exacerbation COPD Bronchitis ? pneumonia Leukocytosis likely steroid-induced PCN/FQ allergies Resume zithromax prophylaxis when cleared for discharge
[2018-10-03] MEDS ORDERED: PT OWN MED DRAWER 7, Y5N ONE ×2 (14:33→17:19)
--- NOTE | 2018-10-03 14:34 | PN ---
Progress Note (short form) - Note Progress Note: PULMONARY SUBJECTIVE IMPROVEMENT VSS ANICTERIC/CUSHINOID FEATURES B/L WHEEZES S1S2 BS+ NO EDEMA LABS/MEDS/NOTES/MICRO REVIEWED Viral like symptoms preceding acute on chronic exacerbation of copd/bronchospasm Chronic high dose steroid use/daily zithromax for prophylaxsis Multiple co-morbid conditions o2 supplementation urine antigens for legionella/strep negative multiple antibiotic allergies tapering medrol/bronchodilators/singulair antibiotics as per LOU MARSH MD Problem List - Problems (1) Acute bronchitis Code(s): J20.9 - ACUTE BRONCHITIS, UNSPECIFIED (2) COPD (chronic obstructive pulmonary disease) Code(s): J44.9 - CHRONIC OBSTRUCTIVE PULMONARY DISEASE, UNSPECIFIED Qualifiers: COPD type: COPD with acute exacerbation Qualified Code(s): J44.1 - Chronic obstructive pulmonary disease with (acute) exacerbation (3) HLD (hyperlipidemia) Code(s): E78.5 - HYPERLIPIDEMIA, UNSPECIFIED (4) Hypertension Code(s): I10 - ESSENTIAL (PRIMARY) HYPERTENSION (5) Acute exacerbation of COPD with asthma Code(s): J44.1 - CHRONIC OBSTRUCTIVE PULMONARY DISEASE W (ACUTE) EXACERBATION; J45.901 - UNSPECIFIED ASTHMA WITH (ACUTE) EXACERBATION (6) Acute on chronic respiratory failure with hypoxia Code(s): J96.21 - ACUTE AND CHRONIC RESPIRATORY FAILURE WITH HYPOXIA (7) Asthma Code(s): J45.909 - UNSPECIFIED ASTHMA, UNCOMPLICATED Qualifiers: Asthma severity: moderate Asthma persistence: persistent Asthma complication type: with acute exacerbation Qualified Code(s): J45.41 - Moderate persistent asthma with (acute) exacerbation (8) Asthma exacerbation Code(s): J45.901 - UNSPECIFIED ASTHMA WITH (ACUTE) EXACERBATION
[2018-10-03] MEDS: ALBUTEROL SO4 2.5/IPRATROPIUM 0.5 INH SOL 3 ML VIAL.NEB. NEB SCH ×2 (15:45→20:20)
--- NOTE | 2018-10-03 17:18 | PN ---
Progress Note, Physician History of Present Illness: Pt with slightly increased wheezing and heartburns today today. Pt w/o CP, palpitations, abd pain, nausea, vomiting. Pt with daily BM - Current Medication List Current Medications: Active Medications Al Hydroxide/Mg Hydroxide (Mylanta Oral Suspension -) 30 ml PO QID PRN PRN Reason: INDIGESTION Albuterol/Ipratropium (Duoneb -) amp NEB Q6H [facility] Atorvastatin Calcium (Lipitor -) 20 mg PO HS [facility] Last Admin: 10/02/18 21:21 Dose: 20 mg Budesonide/Formoterol Fumarate (Symbicort 160/4.5mcg -) 2 puff IH BID [facility] Last Admin: 10/03/18 10:51 Dose: 2 puff Bupropion HCl (Wellbutrin -) 100 mg PO DAILY [facility] Last Admin: 10/03/18 10:52 Dose: 100 mg Cyclobenzaprine HCl (Flexeril -) 10 mg PO Q8H PRN PRN Reason: MUSCLE SPASMS Docusate Sodium (Colace -) 100 mg PO DAILY [facility] Last Admin: 10/03/18 10:52 Dose: 100 mg Ferrous Sulfate (Feosol -) 325 mg PO DAILY [facility] Last Admin: 10/03/18 10:52 Dose: 325 mg Fluticasone Propionate (Flonase -) 2 spray NS BID [facility] Last Admin: 10/03/18 10:51 Dose: 2 spray Vancomycin HCl (Vancomycin (Pre-Docked)) 1,000 mg in 250 mls @ 166.667 mls/hr IVPB BID@0300,1500 [facility]; Protocol Last Admin: 10/03/18 02:22 Dose: 166.667 mls/hr Aztreonam 1 gm/ Dextrose 50 mls @ 100 mls/hr IVPB Q8H-IV [facility]; Protocol Last Admin: 10/03/18 10:51 Dose: 100 mls/hr Loratadine (Claritin -) 10 mg PO DAILY [facility] Last Admin: 10/03/18 10:52 Dose: 10 mg Methylprednisolone Sodium Succinate (Solu-Medrol -) 20 mg IVPUSH Q12H [facility] Last Admin: 10/03/18 15:18 Dose: Not Given Montelukast Sodium (Singulair -) 10 mg PO HS [facility] Last Admin: 10/02/18 21:21 Dose: 10 mg Non-Formulary Medication (Cyclosporine [Restasis]) 1 each OU BID [facility] Pantoprazole Sodium (Protonix -) 40 mg PO DAILY [facility] Polyethylene Glycol (Miralax (For Daily Use) -) 17 gm PO DAILY [facility] Last Admin: 10/03/18 12:20 Dose: 17 gm Ranitidine HCl (Zantac -) 300 mg PO DAILY [facility] Last Admin: 10/03/18 10:52 Dose: 300 mg Senna (Senna -) 2 tab PO HS [facility] Last Admin: 10/02/18 21:21 Dose: 2 tab Tiotropium [place] (Spiriva Respimat) 2 puff IH DAILY [facility] Last Admin: 10/03/18 10:51 Dose: 2 puff - Objective Vital Signs: Vital Signs Temperature 98.4 F 10/03/18 14:49 Pulse Rate 80 10/03/18 14:49 Respiratory Rate 16 10/03/18 14:49 Blood Pressure 122/80 10/03/18 14:49 O2 Sat by Pulse Oximetry (%) 97 10/03/18 09:00 Constitutional: Yes: No Distress, Calm Cardiovascular: Yes: Regular Rate and Rhythm, S1, S2 Respiratory: Yes: Regular, CTA Bilaterally. No: Rales Gastrointestinal: Yes: Normal Bowel Sounds, Soft. No: Tenderness Edema: No Neurological: Yes: Alert, Oriented Labs: CBC, BMP 10/03/18 05:35 10/03/18 05:35 Problem List - Problems (1) Acute exacerbation of COPD with asthma Code(s): J44.1 - CHRONIC OBSTRUCTIVE PULMONARY DISEASE W (ACUTE) EXACERBATION; J45.901 - UNSPECIFIED ASTHMA WITH (ACUTE) EXACERBATION (2) Hypertension Code(s): I10 - ESSENTIAL (PRIMARY) HYPERTENSION (3) HLD (hyperlipidemia) Code(s): E78.5 - HYPERLIPIDEMIA, UNSPECIFIED (4) CHF (congestive heart failure) Code(s): I50.9 - HEART FAILURE, UNSPECIFIED Qualifiers: (5) MGUS (monoclonal gammopathy of unknown significance) Code(s): D47.2 - MONOCLONAL GAMMOPATHY (6) GERD (gastroesophageal reflux disease) Code(s): K21.9 - GASTRO-ESOPHAGEAL REFLUX DISEASE WITHOUT ESOPHAGITIS Assessment/Plan IV Solu-Medrol -to joseph Add Pantoprazole Pulmonary, ID consults and f/u are appreciated OOBTC GI proph AM labs Case was d/w pt's nurse.
[2018-10-03] MEDS: MAG HYDROX/AL HYDROX/SIMETH 30 ML UNIT-DOSE CUP PO PRN ×2 (17:34→23:01)
[2018-10-03] MEDS: PANTOPRAZOLE 40 MG TABLET (FP) PO SCH (17:34)
[2018-10-03] MEDS: MONTELUKAST NA 10 MG TABLET PO SCH (22:57)
[2018-10-03] MEDS: SENNOSIDES 8.6MG TABLET (FP) PO SCH (22:57)
[2018-10-03] MEDS: ATORVASTATIN CA 20 MG TABLET (FP) PO SCH (22:57)
[2018-10-04] MEDS ORDERED: PT OWN MED DRAWER 7, Y5N ONE ×3 (01:35→17:57)
[2018-10-04] MEDS: AZTREONAM 1 GM in DEXTROSE 5%-WATER - 50 ML IVPB SCH ×3 (01:36→18:00)
[2018-10-04] MEDS: methylPREDNISolone NA SUCC 40 MG/1 ML VIAL IVPUSH SCH ×2 (02:25→14:28)
[2018-10-04] MEDS: VANCOMYCIN 1 GRAM (PRE-DOCKED) 1,000 MG/250 ML BAG IVPB SCH ×2 (02:26→14:27)
[2018-10-04] MEDS: ALBUTEROL SO4 2.5/IPRATROPIUM 0.5 INH SOL 3 ML VIAL.NEB. NEB SCH ×4 (07:25→20:45)
[2018-10-04 08:24] LABS: HEMATOCRIT 36.5 % (32.4-45.2); HEMOGLOBIN 11.1 GM/dL (10.7-15.3); MCHC 30.6 g/dl (32.0-36.0); MEAN CELL VOLUME 75.3 fl (80-96); MEAN PLT VOLUME 7.6 fl (7.5-11.1); PLATELET COUNT 316 K/MM3 (134-434); RBC 4.84 M/mm3 (3.60-5.2); RDW 19.4 % (11.6-15.6); WHITE BLOOD COUNT 14.9 K/mm3 (4.0-10.0)
--- NOTE | 2018-10-04 09:04 | PN ---
Progress Note, Physician Chief Complaint: still SOB and ARMSTRONG; occasional cough but breathing a little better overall; GERD like c/o; acid refulx; on PPI; will need to see GI dr; has constipation but had BM after miralax; ambulatory goes to the bathroom and back On O2 NC continuous meds tests and consults reviewed and d/w pt - Current Medication List Current Medications: Active Medications Al Hydroxide/Mg Hydroxide (Mylanta Oral Suspension -) 30 ml PO Q6H PRN PRN Reason: INDIGESTION Last Admin: 10/03/18 23:01 Dose: 30 ml Albuterol/Ipratropium (Duoneb -) 1 amp NEB RQID [facility] Last Admin: 10/03/18 20:20 Dose: 1 amp Atorvastatin Calcium (Lipitor -) 20 mg PO HS [facility] Last Admin: 10/03/18 22:57 Dose: 20 mg Budesonide/Formoterol Fumarate (Symbicort 160/4.5mcg -) 2 puff IH BID [facility] Last Admin: 10/03/18 22:58 Dose: 2 puff Bupropion HCl (Wellbutrin -) 100 mg PO DAILY [facility] Last Admin: 10/03/18 10:52 Dose: 100 mg Cyclobenzaprine HCl (Flexeril -) 10 mg PO Q8H PRN PRN Reason: MUSCLE SPASMS Docusate Sodium (Colace -) 100 mg PO DAILY [facility] Last Admin: 10/03/18 10:52 Dose: 100 mg Ferrous Sulfate (Feosol -) 325 mg PO DAILY [facility] Last Admin: 10/03/18 10:52 Dose: 325 mg Fluticasone Propionate (Flonase -) 2 spray NS BID [facility] Last Admin: 10/03/18 22:58 Dose: 2 spray Vancomycin HCl (Vancomycin (Pre-Docked)) 1,000 mg in 250 mls @ 166.667 mls/hr IVPB BID@0300,1500 [facility]; Protocol Last Admin: 10/04/18 02:26 Dose: 166.667 mls/hr Aztreonam 1 gm/ Dextrose 50 mls @ 100 mls/hr IVPB Q8H-IV [facility]; Protocol Last Admin: 10/04/18 01:36 Dose: 100 mls/hr Loratadine (Claritin -) 10 mg PO DAILY [facility] Last Admin: 10/03/18 10:52 Dose: 10 mg Methylprednisolone Sodium Succinate (Solu-Medrol -) 20 mg IVPUSH Q12H [facility] Last Admin: 10/04/18 02:25 Dose: 20 mg Montelukast Sodium (Singulair -) 10 mg PO HS [facility] Last Admin: 10/03/18 22:57 Dose: 10 mg Non-Formulary Medication (Cyclosporine [Restasis]) 1 each OU BID [facility] Pantoprazole Sodium (Protonix -) 40 mg PO DAILY [facility] Last Admin: 10/03/18 17:34 Dose: 40 mg Polyethylene Glycol (Miralax (For Daily Use) -) 17 gm PO DAILY [facility] Last Admin: 10/03/18 12:20 Dose: 17 gm Ranitidine HCl (Zantac -) 300 mg PO DAILY [facility] Last Admin: 10/03/18 10:52 Dose: 300 mg Senna (Senna -) 2 tab PO HS [facility] Last Admin: 10/03/18 22:57 Dose: 2 tab Tiotropium [place] (Spiriva Respimat) 2 puff IH DAILY [facility] Last Admin: 10/03/18 10:51 Dose: 2 puff - Objective Vital Signs: Vital Signs Temperature 97.7 F 10/04/18 06:38 Pulse Rate 83 10/04/18 06:38 Respiratory Rate 22 H 10/04/18 06:38 Blood Pressure 115/69 10/04/18 06:38 O2 Sat by Pulse Oximetry (%) 97 10/03/18 21:00 Constitutional: Yes: No Distress, Calm Eyes: Yes: Conjunctiva Clear HENT: Yes: Atraumatic Neck: Yes: Supple Cardiovascular: Yes: Regular Rate and Rhythm Respiratory: Yes: Rales, Wheezes (few scaterred expiratory) Gastrointestinal: Yes: Soft. No: Distention Genitourinary: No: CVA Tenderness - Left, CVA Tenderness - Right Musculoskeletal: No: Joint Stiffness, Joint Swelling Extremities: No: Cold, Cool, Cyanosis Edema: No Integumentary: No: Rash, Venous Stasis Changes Neurological: Yes: WNL, Alert, Oriented ...Motor Strength: WNL Psychiatric: Yes: WNL, Alert, Oriented. No: Agitated, Suicidal Ideation Labs: CBC, BMP 10/04/18 06:23 10/03/18 05:35 - ....Imaging Other: Report Reviewed Assessment/Plan Acute URI with acute on chronic exacerbation of copd/bronchospasm Chronic high dose steroid use/daily zithromax for prophylaxsis Multiple co-morbid conditions HTN HLP obesity COPD / asthma O2 dependant multiple antibiotic allergies o2 supplementation NC continuous medrol/bronchodilators/singulair and antibiotics per ID and pulmonary PPI for GERD Tx, will need GI eval also cardiology eval for SOB and ARMSTRONG; pt used to see dr Humera Emery but she left, pt is asking for a second opinion falls DVT gastric PFX d/w pt and staff
[2018-10-04] MEDS: LORATADINE 10 MG TABLET PO SCH (09:44)
[2018-10-04] MEDS: FERROUS SO4 325 MG TABLET (FP) PO SCH (09:45)
[2018-10-04] MEDS: DOCUSATE SODIUM 100 MG CAPSULE (FP) PO SCH (09:45)
[2018-10-04] MEDS: POLYETHYLENE GLYCOL 3350 119 GM BTL PO SCH (09:45)
[2018-10-04] MEDS: PANTOPRAZOLE 40 MG TABLET (FP) PO SCH (09:46)
[2018-10-04] MEDS: RANITIDINE HCL 150 MG TABLET (FP) PO SCH (09:47)
[2018-10-04] MEDS: buPROPion HCL 100 MG TABLET PO SCH (09:47)
[2018-10-04] MEDS: HEPARIN NA (PORCINE) 5,000 UNITS/ML 1ML VIAL SQ SCH ×2 (09:48→21:32)
[2018-10-04] MEDS: FLUTICASONE PROP 0.05% 16 GM NASAL SPRAY NS SCH ×2 (09:55→21:32)
[2018-10-04] MEDS: TIOTROPIUM BROMIDE 2.5 MCG (SPIRIVA) RESPIMAT INHALER IH SCH (09:56)
[2018-10-04] MEDS: BUDESONIDE/FORMETEROL FUMARATE 160/4.5 mcg INHALER IH SCH ×2 (09:56→21:33)
--- NOTE | 2018-10-04 17:02 | CON.CARD ---
Consult Consult Specialty:: cardiology Reason for Consultation:: SOB; COPD; CHF - History of Present Illness Chief Complaint: Pt A&Ox3; c/o dyspnea on minimal exertion. History of Present Illness: The patient is a 63 year old female, with a significant PMH of asthma, COPD, hyperlipidemia, hypertension, CHF (diastolic dysfunction), MGUS, peripheral neuropathy, GERD, hypothyroidism, who presents to the emergency department with asthma exacerbation beginning just prior to arrival. The patient states she received Decadron from EMS prior to arrival in the ED. The patient states she has not been feeling well for 2 days and endorses a productive cough with yellow sputum. The patient states she is on prednisone 80 mg for [address] James and a low dose of azithromycin. The patient denies any recent sick contacts or travel. The patient states she did receive a flu shot earlier this year. - History Source History Provided By: Patient, Medical Record Limitations to Obtaining History: No Limitations - Past Medical History [employer]: Yes: Peripheral Neuropathy (left hand) Cardio/Vascular: Yes: CHF (Diastolic) Pulmonary: Yes: Asthma, COPD, Other (Former Smoker. Pneumothorax) Gastrointestinal: Yes: GERD Reproductive: Yes: Postmenopausal ...: No Psych: Yes: Anxiety Musculoskeletal: Yes: Chronic low back pain, Other (bilateral rotator cuff tears , foot problems she relates to long-term steroid use) Endocrine: Yes: Hypothyroidism - Past Surgical History Additional Surgical History: bilateral shoulder repairs - Alcohol/Substance Use Hx Alcohol Use: No - Smoking History Smoking history: Former smoker Have you smoked in the past 12 months: No Aproximately how many cigarettes per day: 1 If you are a former smoker, when did you quit?: 02/17 - Social History Usual Living Arrangement: Alone ADL: Independent History of Recent Travel: No Home Medications - Allergies Allergies/Adverse Reactions: Allergies Allergy/AdvReac Type Severity Reaction Status Date / Time Quinolones Allergy Severe Difficulty Verified 09/29/18 11:10 Breathing Penicillins Allergy Intermediate Rash Verified 09/29/18 11:10 fluoroquinolones Allergy Severe Difficulty Uncoded 09/29/18 11:10 Breathing - Home Medications Home Medications: Ambulatory Orders Acetaminophen [Tylenol Extra Strength] 500 mg PO PRN PRN 09/29/18 Albuterol Sulfate Inhaler - [Ventolin Hfa Inhaler -] 1 - 2 inh PO QID PRN Atorvastatin Calcium [Lipitor] 20 mg PO DAILY 09/29/18 Budesonide/Formeterol Fumarate [SYMBICORT 160/4.5mcg -] 1 inh PO BID 09/29/18 Bupropion HCl 100 mg PO DAILY 09/29/18 Cetirizine HCl 10 mg PO DAILY 09/29/18 Cyclosporine [Restasis] 1 each OP DAILY 09/29/18 Famotidine [Pepcid] 40 mg PO DAILY 09/29/18 Fluticasone Propionate 2 spray NS BID 09/29/18 Ipratropium/Albuterol Sulfate [Iprat-Albut 0.5-3(2.5) mg/3 ml] 1 vial IH Q4H Lorazepam 1 mg PO PRN PRN 09/29/18 Montelukast Sodium [Singulair] 10 mg PO DAILY 09/29/18 predniSONE [Deltasone -] 10 mg PO ASDIR 09/29/18 Family Disease History - Family Disease History Family History: Denies Review of Systems - Review of Systems Constitutional: reports: Weakness Eyes: reports: No Symptoms HENT: reports: No Symptoms Neck: reports: No Symptoms Cardiovascular: reports: Shortness of Breath Respiratory: reports: SOB, SOB on Exertion, Wheezing Gastrointestinal: reports: Nausea Genitourinary: reports: No Symptoms Breasts: reports: No Symptoms Reported Musculoskeletal: reports: Muscle Weakness Neurological: reports: Weakness Psychiatric: reports: Anxiety, Depression - Risk Factors Known Risk Factors: Yes: Age, Gender, Hypercholesterolemia, Hypertension, Physical Inactivity, Smoking (quit last year after long-term use) Vital Signs: Vital Signs Temperature 98.6 F 10/04/18 14:03 Pulse Rate 66 10/04/18 14:03 Respiratory Rate 18 10/04/18 14:03 Blood Pressure 116/87 10/04/18 14:03 O2 Sat by Pulse Oximetry (%) 97 10/03/18 21:00 Constitutional: Yes: Anxious, Other (increaed truncal adipose) Eyes: Yes: WNL HENT: Yes: WNL Neck: Yes: WNL Respiratory: Yes: Diminished, Orthopnea, Poor Air Entry, Tachypnea, Wheezes Gastrointestinal: Yes: Soft Renal/: No: Anuria Heart Sounds: Yes: S1, S2 Murmur: Yes: Systolic Murmur, Grade 1 Musculoskeletal: Yes: Back Pain, Joint Stiffness, Muscle Weakness Extremities: Yes: Cool Edema: Yes Edema: LLE: Trace, RLE: Trace Peripheral Pulses WNL: Yes Neurological: Yes: Alert, Oriented, Weakness Psychiatric: Yes: Other (anxiety/depression) - Other Data Labs, Other Data: CBC, BMP 10/04/18 06:23 10/03/18 05:35 Abnormal Lab Results 10/04/18 06:23 WBC 14.9 H MCV 75.3 L MCH 23.0 L MCHC 30.6 L RDW 19.4 H Imaging - Results Chest X-ray: Image Reviewed EKG: Image Reviewed Problem List - Problems (1) Diastolic CHF Assessment/Plan: ECHO 10/2017: normal LVEF; small pericardial effusion. Episodes of dyspnea with minimal exertion (pt blames at least some of them on "something that's not my asthma attacks"). Very limited exercise; pt says she gets tired and dyspneic easily, and is prone to muscle/tendon/ligament tears of the feet, shoulders ("lifetime of Prednisone) . Repeat ECHO in am. Code(s): I50.30 - UNSPECIFIED DIASTOLIC (CONGESTIVE) HEART FAILURE (2) Acute bronchitis Code(s): J20.9 - ACUTE BRONCHITIS, UNSPECIFIED (3) Diabetes mellitus Code(s): E11.9 - TYPE 2 DIABETES MELLITUS WITHOUT COMPLICATIONS (4) HLD (hyperlipidemia) Assessment/Plan: f/u lipid profile. On atorvastatin. The importance of heart-healthy diet, portion control, and weight loss was discussed in detail. Code(s): E78.5 - HYPERLIPIDEMIA, UNSPECIFIED (5) Hypertension Code(s): I10 - ESSENTIAL (PRIMARY) HYPERTENSION (6) Acute exacerbation of COPD with asthma Code(s): J44.1 - CHRONIC OBSTRUCTIVE PULMONARY DISEASE W (ACUTE) EXACERBATION; J45.901 - UNSPECIFIED ASTHMA WITH (ACUTE) EXACERBATION (7) MGUS (monoclonal gammopathy of unknown significance) Assessment/Plan: f/u with heme/onc Code(s): D47.2 - MONOCLONAL GAMMOPATHY (8) [place] cardiac risk >20% in next 10 years Assessment/Plan: Stress dobutamine mibi 10/2017: no ischemia, but suboptimal HR reached. Pt c/o increasing episodes of dyspnea she thinks are not related to asthma. Episode of "bad heartburn" at rest yesterday, lasting about an hour, with some response to Prilosec. Discussed possibility of coronary angiogram with her; she will consider it. Code(s): Z91.89 - OTH PERSONAL RISK FACTORS, NOT ELSEWHERE CLASSIFIED (9) Asthma Code(s): J45.909 - UNSPECIFIED ASTHMA, UNCOMPLICATED Qualifiers: Asthma severity: moderate Asthma persistence: persistent Asthma complication type: with acute exacerbation Qualified Code(s): J45.41 - Moderate persistent asthma with (acute) exacerbation (10) Anxiety Assessment/Plan: Her poor health and "over 400 hospital admissions" has her afraid and depressed as she gets older; "I want to be around for my grandchildren". Code(s): F41.9 - ANXIETY DISORDER, UNSPECIFIED
[2018-10-04] MEDS: ATORVASTATIN CA 20 MG TABLET (FP) PO SCH (21:32)
[2018-10-04] MEDS: SENNOSIDES 8.6MG TABLET (FP) PO SCH (21:32)
[2018-10-04] MEDS: MONTELUKAST NA 10 MG TABLET PO SCH (21:32)
[2018-10-05] MEDS ORDERED: PT OWN MED DRAWER 7, Y5N ONE ×5 (01:59→18:02)
[2018-10-05] MEDS: AZTREONAM 1 GM in DEXTROSE 5%-WATER - 50 ML IVPB SCH ×3 (02:02→18:04)
[2018-10-05] MEDS: methylPREDNISolone NA SUCC 40 MG/1 ML VIAL IVPUSH SCH ×3 (02:02→21:54)
[2018-10-05] MEDS: VANCOMYCIN 1 GRAM (PRE-DOCKED) 1,000 MG/250 ML BAG IVPB SCH ×2 (03:02→15:25)
[2018-10-05 06:22] LABS: BASO % 0.1 % (0-2.0); EOS % 0.1 % (0-4.5); HEMATOCRIT 35.4 % (32.4-45.2); LYMPH % 4.8 % (8-40); MCH 23.3 pg (25.7-33.7); MCHC 31.2 g/dl (32.0-36.0); MEAN CELL VOLUME 74.7 fl (80-96); MEAN PLT VOLUME 7.5 fl (7.5-11.1); MONO % 4.3 % (3.8-10.2); NEUT % 90.7 % (42.8-82.8); PLATELET COUNT 314 K/MM3 (134-434); RBC 4.74 M/mm3 (3.60-5.2); RDW 18.9 % (11.6-15.6); WHITE BLOOD COUNT 19.1 K/mm3 (4.0-10.0)
[2018-10-05 06:49] LABS: ALBUMIN 2.9 g/dl (3.4-5.0); ALK PHOS 48 U/L (45-117); ANION GAP 6 MMOL/L (8-16); BILIRUBIN,TOTAL 0.2 mg/dL (0.2-1); BLOOD UREA NITROGEN 18 mg/dL (7-18); CALCIUM 7.9 mg/dL (8.5-10.1); CHLORIDE 104 mmol/L (98-107); CO2 31 mmol/L (21-32); CREATININE 0.7 mg/dL (0.55-1.3); GLUCOSE,RANDOM 139 mg/dL (74-106); POTASSIUM 4.2 mmol/L (3.5-5.1); SGOT/AST 15 U/L (15-37); SGPT/ALT 24 U/L (13-61); SODIUM 140 mmol/L (136-145); TOT PROT 5.9 g/dl (6.4-8.2)
[2018-10-05] MEDS: ALBUTEROL SO4 2.5/IPRATROPIUM 0.5 INH SOL 3 ML VIAL.NEB. NEB SCH ×4 (07:40→20:30)
[2018-10-05] MEDS: FLUTICASONE PROP 0.05% 16 GM NASAL SPRAY NS SCH ×2 (09:31→21:52)
[2018-10-05] MEDS: BUDESONIDE/FORMETEROL FUMARATE 160/4.5 mcg INHALER IH SCH ×2 (09:31→21:52)
[2018-10-05] MEDS: TIOTROPIUM BROMIDE 2.5 MCG (SPIRIVA) RESPIMAT INHALER IH SCH (09:31)
[2018-10-05] MEDS: FERROUS SO4 325 MG TABLET (FP) PO SCH (09:32)
[2018-10-05] MEDS: DOCUSATE SODIUM 100 MG CAPSULE (FP) PO SCH (09:32)
[2018-10-05] MEDS: LORATADINE 10 MG TABLET PO SCH (09:32)
[2018-10-05] MEDS: RANITIDINE HCL 150 MG TABLET (FP) PO SCH (09:33)
[2018-10-05] MEDS: POLYETHYLENE GLYCOL 3350 119 GM BTL PO SCH (09:33)
[2018-10-05] MEDS: PANTOPRAZOLE 40 MG TABLET (FP) PO SCH (09:33)
[2018-10-05] MEDS: buPROPion HCL 100 MG TABLET PO SCH (09:33)
[2018-10-05] MEDS: HEPARIN NA (PORCINE) 5,000 UNITS/ML 1ML VIAL SQ SCH (09:34)
--- NOTE | 2018-10-05 10:33 | PN ---
Progress Note, Physician Chief Complaint: had a small amt of epistaxis pt thinks b/o NC O2 tube; if recurrent d/w pt and staff to call ENT and switch to FM and DC sq heparin AMRSTRONG - Current Medication List Current Medications: Active Medications Al Hydroxide/Mg Hydroxide (Mylanta Oral Suspension -) 30 ml PO Q6H PRN PRN Reason: INDIGESTION Last Admin: 10/03/18 23:01 Dose: 30 ml Albuterol/Ipratropium (Duoneb -) 1 amp NEB RQID [facility] Last Admin: 10/04/18 20:45 Dose: 1 amp Atorvastatin Calcium (Lipitor -) 20 mg PO HS [facility] Last Admin: 10/04/18 21:32 Dose: 20 mg Budesonide/Formoterol Fumarate (Symbicort 160/4.5mcg -) 2 puff IH BID [facility] Last Admin: 10/05/18 09:31 Dose: 2 puff Bupropion HCl (Wellbutrin -) 100 mg PO DAILY [facility] Last Admin: 10/05/18 09:33 Dose: 100 mg Cyclobenzaprine HCl (Flexeril -) 10 mg PO Q8H PRN PRN Reason: MUSCLE SPASMS Docusate Sodium (Colace -) 100 mg PO DAILY [facility] Last Admin: 10/05/18 09:32 Dose: 100 mg Ferrous Sulfate (Feosol -) 325 mg PO DAILY [facility] Last Admin: 10/05/18 09:32 Dose: 325 mg Fluticasone Propionate (Flonase -) 2 spray NS BID [facility] Last Admin: 10/05/18 09:31 Dose: 2 spray Heparin Sodium (Porcine) (Heparin -) 5,000 unit SQ BID [facility] Last Admin: 10/05/18 09:34 Dose: 5,000 unit Vancomycin HCl (Vancomycin (Pre-Docked)) 1,000 mg in 250 mls @ 166.667 mls/hr IVPB BID@0300,1500 [facility]; Protocol Last Admin: 10/05/18 03:02 Dose: 166.667 mls/hr Aztreonam 1 gm/ Dextrose 50 mls @ 100 mls/hr IVPB Q8H-IV [facility]; Protocol Last Admin: 10/05/18 09:33 Dose: 100 mls/hr Loratadine (Claritin -) 10 mg PO DAILY [facility] Last Admin: 10/05/18 09:32 Dose: 10 mg Methylprednisolone Sodium Succinate (Solu-Medrol -) 20 mg IVPUSH Q12H [facility] Last Admin: 10/05/18 02:02 Dose: 20 mg Montelukast Sodium (Singulair -) 10 mg PO HS [facility] Last Admin: 10/04/18 21:32 Dose: 10 mg Pantoprazole Sodium (Protonix -) 40 mg PO DAILY [facility] Last Admin: 10/05/18 09:33 Dose: 40 mg Polyethylene Glycol (Miralax (For Daily Use) -) 17 gm PO DAILY [facility] Last Admin: 10/05/18 09:33 Dose: Not Given Ranitidine HCl (Zantac -) 300 mg PO DAILY [facility] Last Admin: 10/05/18 09:33 Dose: 300 mg Senna (Senna -) 2 tab PO HS [facility] Last Admin: 10/04/18 21:32 Dose: 2 tab Tiotropium [place] (Spiriva Respimat) 2 puff IH DAILY [facility] Last Admin: 10/05/18 09:31 Dose: 2 puff - Objective Vital Signs: Vital Signs Temperature 97.9 F 10/05/18 06:00 Pulse Rate 80 10/05/18 06:00 Respiratory Rate 20 10/05/18 06:00 Blood Pressure 115/78 10/05/18 06:00 O2 Sat by Pulse Oximetry (%) 97 10/04/18 21:00 Constitutional: Yes: No Distress, Calm Eyes: Yes: Conjunctiva Clear HENT: Yes: Atraumatic Neck: Yes: Supple Cardiovascular: Yes: Regular Rate and Rhythm Respiratory: Yes: Diminished Gastrointestinal: Yes: Soft. No: Distention Genitourinary: No: CVA Tenderness - Left, CVA Tenderness - Right Musculoskeletal: No: Joint Stiffness, Joint Swelling Extremities: No: Cold, Cool, Cyanosis Edema: No Integumentary: No: Rash, Venous Stasis Changes Neurological: Yes: WNL, Alert, Oriented ...Motor Strength: WNL Psychiatric: Yes: WNL, Alert, Oriented. No: Agitated Labs: CBC, BMP 10/05/18 05:30 10/05/18 05:30 - ....Imaging Other: Report Reviewed Assessment/Plan Acute URI with acute on chronic exacerbation of copd/bronchospasm Chronic high dose steroid use/daily zithromax for prophylaxsis Multiple co-morbid conditions HTN HLP obesity COPD / asthma O2 dependant multiple antibiotic allergies o2 supplementation NC continuous medrol/bronchodilators/singulair and antibiotics per ID and pulmonary PPI for GERD Tx, will need GI eval also cardiology eval for SOB and ARMSTRONG; cardiology f/u ENT eval see above falls DVT gastric PFX d/w pt and staff
--- NOTE | 2018-10-05 10:51 | PN ---
Progress Note (short form) - Note Progress Note: PULMONARY Still with episodic shortness of breath with chest tightness. Denies significant cough or wheezing. No fevers. Vital Signs Period Temp Pulse Resp BP Sys/Stringer Pulse Ox Last 24 Hr 97.8 F-98.6 F 66-91 18-20 115-137/78-87 97 Gen: mildly tachpyneic with speaking Heart: RRR Lung: distant breath sounds, no wheezes Abd: soft, nontender Ext: no edema CBC, BMP 10/05/18 05:30 10/05/18 05:30 Active Medications Al Hydroxide/Mg Hydroxide (Mylanta Oral Suspension -) 30 ml PO Q6H PRN PRN Reason: INDIGESTION Last Admin: 10/03/18 23:01 Dose: 30 ml Albuterol/Ipratropium (Duoneb -) 1 amp NEB RQID [facility] Last Admin: 10/04/18 20:45 Dose: 1 amp Atorvastatin Calcium (Lipitor -) 20 mg PO HS [facility] Last Admin: 10/04/18 21:32 Dose: 20 mg Budesonide/Formoterol Fumarate (Symbicort 160/4.5mcg -) 2 puff IH BID [facility] Last Admin: 10/05/18 09:31 Dose: 2 puff Bupropion HCl (Wellbutrin -) 100 mg PO DAILY [facility] Last Admin: 10/05/18 09:33 Dose: 100 mg Cyclobenzaprine HCl (Flexeril -) 10 mg PO Q8H PRN PRN Reason: MUSCLE SPASMS Docusate Sodium (Colace -) 100 mg PO DAILY [facility] Last Admin: 10/05/18 09:32 Dose: 100 mg Ferrous Sulfate (Feosol -) 325 mg PO DAILY [facility] Last Admin: 10/05/18 09:32 Dose: 325 mg Fluticasone Propionate (Flonase -) 2 spray NS BID [facility] Last Admin: 10/05/18 09:31 Dose: 2 spray Heparin Sodium (Porcine) (Heparin -) 5,000 unit SQ BID [facility] Last Admin: 10/05/18 09:34 Dose: 5,000 unit Vancomycin HCl (Vancomycin (Pre-Docked)) 1,000 mg in 250 mls @ 166.667 mls/hr IVPB BID@0300,1500 [facility]; Protocol Last Admin: 10/05/18 03:02 Dose: 166.667 mls/hr Aztreonam 1 gm/ Dextrose 50 mls @ 100 mls/hr IVPB Q8H-IV [facility]; Protocol Last Admin: 10/05/18 09:33 Dose: 100 mls/hr Loratadine (Claritin -) 10 mg PO DAILY [facility] Last Admin: 10/05/18 09:32 Dose: 10 mg Methylprednisolone Sodium Succinate (Solu-Medrol -) 20 mg IVPUSH Q12H [facility] Last Admin: 10/05/18 02:02 Dose: 20 mg Montelukast Sodium (Singulair -) 10 mg PO HS [facility] Last Admin: 10/04/18 21:32 Dose: 10 mg Pantoprazole Sodium (Protonix -) 40 mg PO DAILY [facility] Last Admin: 10/05/18 09:33 Dose: 40 mg Polyethylene Glycol (Miralax (For Daily Use) -) 17 gm PO DAILY [facility] Last Admin: 10/05/18 09:33 Dose: Not Given Ranitidine HCl (Zantac -) 300 mg PO DAILY [facility] Last Admin: 10/05/18 09:33 Dose: 300 mg Senna (Senna -) 2 tab PO HS [facility] Last Admin: 10/04/18 21:32 Dose: 2 tab Tiotropium [place] (Spiriva Respimat) 2 puff IH DAILY [facility] Last Admin: 10/05/18 09:31 Dose: 2 puff A/P Acute COPD Exacerbation Acute Bronchitis LV Diastolic Dysfunction Hypercholeserolemia - will increase medrol for next 24 hrs - inhaled bronchodilators - antibiotics per ID - O2 to keep SpO2 >90% - DVT prophylaxis
--- NOTE | 2018-10-05 11:45 | EKG ---
Test Reason : Blood Pressure : / mmHG Vent. Rate : 094 BPM Atrial Rate : 094 BPM P-R Int : 146 ms QRS Dur : 074 ms QT Int : 346 ms P-R-T Axes : 043 017 055 degrees QTc Int : 432 ms NORMAL SINUS RHYTHM NORMAL ECG WHEN COMPARED WITH ECG OF 29-SEP-2018 11:42, NO SIGNIFICANT CHANGE WAS FOUND Confirmed by MARCELINA VAZQUEZ MD ([id number]) on 10/05/2018 11:45:01 AM Referred By: Ladarius CHAMPION Confirmed By:MARCELINA VAZQUEZ MD
--- NOTE | 2018-10-05 20:50 | CON.ENT ---
Consult Consult Specialty:: ENt Referred by:: Dr. Burrell Reason for Consultation:: nasal bleeding - History of Present Illness Chief Complaint: nasal bleeding History of Present Illness: 63 yo F with COPD, recent infection had some nasal bleeding today, felt secondary to nasal oxygen use prior nasal bleeding 2 months ago, required ER visit hx chronic sinusitis with nasal polyps, had surgery by Dr. Belcher >10 years ago , helped her on multiple inhalers and high dose oral steroids, suspects she has thrush also known sleep apnea, dx by PSG, pt recalls severe AHI over 80 has tried CPAP but cannot tolerate nasal pillows, requesting full face mask, this is pending from her outpatient provider - History Source History Provided By: Patient, Medical Record Limitations to Obtaining History: No Limitations - Past Medical History FIELD SUPPORT REPRESENTATIVE: Yes: Peripheral Neuropathy (left hand) Cardio/Vascular: Yes: CHF (Diastolic) Pulmonary: Yes: Asthma, COPD, Other (Former Smoker. Pneumothorax) Gastrointestinal: Yes: GERD ...: No Psych: Yes: Anxiety Musculoskeletal: Yes: Chronic low back pain, Other (bilateral rotator cuff tears , foot problems she relates to long-term steroid use) Endocrine: Yes: Hypothyroidism - Past Surgical History Additional Surgical History: bilateral shoulder repairs - Alcohol/Substance Use Hx Alcohol Use: No - Smoking History Smoking history: Former smoker Have you smoked in the past 12 months: No Aproximately how many cigarettes per day: 1 If you are a former smoker, when did you quit?: 02/17 - Social History Usual Living Arrangement: Alone ADL: Independent History of Recent Travel: No Home Medications - Allergies Allergies/Adverse Reactions: Allergies Allergy/AdvReac Type Severity Reaction Status Date / Time Quinolones Allergy Severe Difficulty Verified 09/29/18 11:10 Breathing Penicillins Allergy Intermediate Rash Verified 09/29/18 11:10 fluoroquinolones Allergy Severe Difficulty Uncoded 09/29/18 11:10 Breathing - Home Medications Home Medications: Ambulatory Orders Acetaminophen [Tylenol Extra Strength] 500 mg PO PRN PRN 09/29/18 Albuterol Sulfate Inhaler - [Ventolin Hfa Inhaler -] 1 - 2 inh PO QID PRN Atorvastatin Calcium [Lipitor] 20 mg PO DAILY 09/29/18 Budesonide/Formeterol Fumarate [SYMBICORT 160/4.5mcg -] 1 inh PO BID 09/29/18 Bupropion HCl 100 mg PO DAILY 09/29/18 Cetirizine HCl 10 mg PO DAILY 09/29/18 Cyclosporine [Restasis] 1 each OP DAILY 09/29/18 Famotidine [Pepcid] 40 mg PO DAILY 09/29/18 Fluticasone Propionate 2 spray NS BID 09/29/18 Ipratropium/Albuterol Sulfate [Iprat-Albut 0.5-3(2.5) mg/3 ml] 1 vial IH Q4H Lorazepam 1 mg PO PRN PRN 09/29/18 Montelukast Sodium [Singulair] 10 mg PO DAILY 09/29/18 predniSONE [Deltasone -] 10 mg PO ASDIR 09/29/18 Physical Exam-ENT Vital Signs: Vital Signs Temperature 97.7 F 10/05/18 14:18 Pulse Rate 102 H 10/05/18 14:18 Respiratory Rate 20 10/05/18 14:18 Blood Pressure 111/80 10/05/18 14:18 O2 Sat by Pulse Oximetry (%) 95 10/05/18 09:00 Constitutional: Yes: No Distress, Calm (Cushingoid) Head: Yes: WNL Face: Yes: WNL Eyes: Yes: WNL Nose: Yes: Other (nasal endoscopy: nasal septum intact, mild deviation, dry mucosa, sl dry blood right anterior septum, inferior turbinates enlarged, left mniddle turbinate resected, left MM patent s/p ESS, SM,ST, SE recess not well visualized, no polyps; right middle turbinate sl edema, MM narrow, SM,ST, SE recess not well visualized) Oral/Pharynx: Yes: Other (full dentures, mild thrush right buccal mucosa) Outer Ear: Yes: WNL Ear Canal: Yes: WNL Tympanic Membrane: Yes: WNL Neck: Yes: WNL Problem List - Problems (1) Thrush Assessment/Plan: mild thrush right oral cavity risk factors: oral and inhaled steroids Recommend: Nystatin Code(s): B37.0 - CANDIDAL STOMATITIS (2) Obstructive sleep apnea Assessment/Plan: known BEHZAD per pt AHI ~80? has tried CPAP but cannot tolerate nasal pillow wants full face mask Recommend: consider CPAP while in hospital once discharged will have full face mask ordered by her outpatient vendor Code(s): G47.33 - OBSTRUCTIVE SLEEP APNEA (ADULT) (PEDIATRIC) (3) Epistaxis Assessment/Plan: mild epistaxis dry nasal mucosa aggravated by nasal oxygen use Recommend: nasal saline spray - ordered humidify the oxygen source Thank you for consultation, Artie Leos MD FACS Code(s): R04.0 - EPISTAXIS
[2018-10-05] MEDS: ATORVASTATIN CA 20 MG TABLET (FP) PO SCH (21:54)
[2018-10-05] MEDS: SENNOSIDES 8.6MG TABLET (FP) PO SCH (21:54)
[2018-10-05] MEDS: MONTELUKAST NA 10 MG TABLET PO SCH (21:54)
[2018-10-05] MEDS: NYSTATIN 500,000 UNITS/5 ML SUSPENSION PO SCH ×2 (22:53→23:15)
[2018-10-05] MEDS: SODIUM CHLORIDE NASAL SPRAY 44 ML BOTTLE NS SCH (22:54)
[2018-10-06] MEDS: AZTREONAM 1 GM in DEXTROSE 5%-WATER - 50 ML IVPB SCH ×3 (01:00→17:48)
[2018-10-06] MEDS: VANCOMYCIN 1 GRAM (PRE-DOCKED) 1,000 MG/250 ML BAG IVPB SCH ×2 (01:59→14:52)
[2018-10-06] MEDS: methylPREDNISolone NA SUCC 40 MG/1 ML VIAL IVPUSH SCH ×3 (05:09→22:25)
[2018-10-06] MEDS: NYSTATIN 500,000 UNITS/5 ML SUSPENSION PO SCH ×5 (05:10→22:59)
[2018-10-06] MEDS: ALBUTEROL SO4 2.5/IPRATROPIUM 0.5 INH SOL 3 ML VIAL.NEB. NEB SCH ×4 (07:35→20:05)
--- NOTE | 2018-10-06 08:03 | PN ---
Progress Note, Physician Chief Complaint: Pt sitting up at bedside; able to hold a conversation, but easily dyspneic ( even walking the short distance to the bathroom). History of Present Illness: The patient is a 63 year old female, with a significant PMH of asthma, COPD, hyperlipidemia, hypertension, CHF (diastolic dysfunction), MGUS, peripheral neuropathy, GERD, hypothyroidism, who presents to the emergency department with asthma exacerbation beginning just prior to arrival. The patient states she received Decadron from EMS prior to arrival in the ED. The patient states she has not been feeling well for 2 days and endorses a productive cough with yellow sputum. The patient states she is on prednisone 80 mg for [address] James and a low dose of azithromycin. The patient denies any recent sick contacts or travel. The patient states she did receive a flu shot earlier this year. - Current Medication List Current Medications: Active Medications Al Hydroxide/Mg Hydroxide (Mylanta Oral Suspension -) 30 ml PO Q6H PRN PRN Reason: INDIGESTION Last Admin: 10/03/18 23:01 Dose: 30 ml Albuterol Sulfate (Ventolin 0.083% Nebulizer Soln -) 1 amp NEB Q4H PRN PRN Reason: SHORT OF BREATH/WHEEZING Albuterol/Ipratropium (Duoneb -) 1 amp NEB RQID [facility] Last Admin: 10/05/18 20:30 Dose: 1 amp Atorvastatin Calcium (Lipitor -) 20 mg PO HS [facility] Last Admin: 10/05/18 21:54 Dose: 20 mg Budesonide/Formoterol Fumarate (Symbicort 160/4.5mcg -) 2 puff IH BID [facility] Last Admin: 10/05/18 21:52 Dose: 2 puff Bupropion HCl (Wellbutrin -) 100 mg PO DAILY [facility] Last Admin: 10/05/18 09:33 Dose: 100 mg Cyclobenzaprine HCl (Flexeril -) 10 mg PO Q8H PRN PRN Reason: MUSCLE SPASMS Docusate Sodium (Colace -) 100 mg PO DAILY [facility] Last Admin: 10/05/18 09:32 Dose: 100 mg Ferrous Sulfate (Feosol -) 325 mg PO DAILY [facility] Last Admin: 10/05/18 09:32 Dose: 325 mg Fluticasone Propionate (Flonase -) 2 spray NS BID [facility] Last Admin: 10/05/18 21:52 Dose: 2 spray Vancomycin HCl (Vancomycin (Pre-Docked)) 1,000 mg in 250 mls @ 166.667 mls/hr IVPB BID@0300,1500 [facility]; Protocol Last Admin: 10/06/18 01:59 Dose: 166.667 mls/hr Aztreonam 1 gm/ Dextrose 50 mls @ 100 mls/hr IVPB Q8H-IV [facility]; Protocol Last Admin: 10/06/18 01:00 Dose: 100 mls/hr Loratadine (Claritin -) 10 mg PO DAILY [facility] Last Admin: 10/05/18 09:32 Dose: 10 mg Methylprednisolone Sodium Succinate (Solu-Medrol -) 40 mg IVPUSH TID [facility] Last Admin: 10/06/18 05:09 Dose: 40 mg Montelukast Sodium (Singulair -) 10 mg PO HS [facility] Last Admin: 10/05/18 21:54 Dose: 10 mg Nystatin (Nystatin Oral Suspension -) 500,000 units PO Q6HPO [facility] Last Admin: 10/06/18 05:10 Dose: 500,000 units Pantoprazole Sodium (Protonix -) 40 mg PO DAILY [facility] Last Admin: 10/05/18 09:33 Dose: 40 mg Polyethylene Glycol (Miralax (For Daily Use) -) 17 gm PO DAILY [facility] Last Admin: 10/05/18 09:33 Dose: Not Given Ranitidine HCl (Zantac -) 300 mg PO DAILY [facility] Last Admin: 10/05/18 09:33 Dose: 300 mg Senna (Senna -) 2 tab PO [facility] Last Admin: 10/05/18 21:54 Dose: 2 tab Sodium Chloride ([place]al [place] -) 2 spray NS BID [facility] Last Admin: 10/05/18 22:54 Dose: 2 spray - [facility] Vital Signs: Vital Signs Temperature 97.5 F L 10/06/18 06:23 Pulse Rate 89 10/06/18 06:23 Respiratory Rate 20 10/06/18 06:23 Blood Pressure 126/84 10/06/18 06:23 O2 Sat by Pulse Oximetry (%) 98 10/05/18 23:45 Constitutional: Yes: Anxious, Mild Distress Eyes: Yes: WNL HENT: Yes: WNL Neck: Yes: WNL Cardiovascular: Yes: S1, S2, S4 Respiratory: Yes: Diminished, Poor Air Entry, SOB on Exertion, Wheezes ( expiratory) Gastrointestinal: Yes: Soft ...Rectal Exam: Yes: Deferred Genitourinary: Yes: Anuria Breast(s): Yes: WNL Musculoskeletal: Yes: Muscle Weakness Extremities: Yes: Cool Edema: No Peripheral Pulses WNL: Yes Integumentary: Yes: WNL Neurological: Yes: Alert, Oriented, Weakness Labs: CBC, BMP 10/05/18 05:30 10/05/18 05:30 - ....Imaging EKG: Image Reviewed Problem List - Problems (1) Diastolic CHF Assessment/Plan: ECHO 10/2017: normal LVEF; small pericardial effusion. Episodes of dyspnea with minimal exertion. Very limited exercise; pt says she gets tired and dyspneic easily, and is prone to muscle/tendon/ligament tears of the feet, shoulders ("lifetime of Prednisone) . Repeat ECHO in am. BUN/Cr, electrolytes, Is and Os, daily weight. 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 Code(s): J20.9 - ACUTE BRONCHITIS, UNSPECIFIED (3) Diabetes mellitus Code(s): E11.9 - TYPE 2 DIABETES MELLITUS WITHOUT COMPLICATIONS (4) HLD (hyperlipidemia) Assessment/Plan: f/u lipid profile. On atorvastatin. The importance of heart-healthy diet, portion control, and weight loss was discussed in detail. Code(s): E78.5 - HYPERLIPIDEMIA, UNSPECIFIED (5) Hypertension Code(s): I10 - ESSENTIAL (PRIMARY) HYPERTENSION (6) Acute exacerbation of COPD with asthma Code(s): J44.1 - CHRONIC OBSTRUCTIVE PULMONARY DISEASE W (ACUTE) EXACERBATION; J45.901 - UNSPECIFIED ASTHMA WITH (ACUTE) EXACERBATION (7) MGUS (monoclonal gammopathy of unknown significance) Assessment/Plan: f/u with heme/onc Code(s): D47.2 - MONOCLONAL GAMMOPATHY (8) Winn cardiac risk >20% in next 10 years Assessment/Plan: Stress dobutamine mibi 10/2017: no ischemia, but suboptimal HR reached. Pt c/o increasing episodes of dyspnea she thinks are not related to asthma. Episode of "bad heartburn" at rest yesterday, lasting about an hour, with some response to Prilosec. Discussed possibility of coronary angiogram with her; she will consider it. Code(s): Z91.89 - OTH PERSONAL RISK FACTORS, NOT ELSEWHERE CLASSIFIED (9) Asthma Code(s): J45.909 - UNSPECIFIED ASTHMA, UNCOMPLICATED Qualifiers: Asthma severity: moderate Asthma persistence: persistent Asthma complication type: with acute exacerbation Qualified Code(s): J45.41 - Moderate persistent asthma with (acute) exacerbation (10) Anxiety Code(s): F41.9 - ANXIETY DISORDER, UNSPECIFIED
--- NOTE | 2018-10-06 09:58 | PN ---
Progress Note, Physician History of Present Illness: Pt with breathing is better today, less wheezing. Pt w/o CP, palpitations, abd pain, nausea, vomiting. Pt with daily BM - Current Medication List Current Medications: Active Medications Al Hydroxide/Mg Hydroxide (Mylanta Oral Suspension -) 30 ml PO Q6H PRN PRN Reason: INDIGESTION Last Admin: 10/03/18 23:01 Dose: 30 ml Albuterol Sulfate (Ventolin 0.083% Nebulizer Soln -) 1 amp NEB Q4H PRN PRN Reason: SHORT OF BREATH/WHEEZING Albuterol/Ipratropium (Duoneb -) 1 amp NEB RQID [facility] Last Admin: 10/05/18 20:30 Dose: 1 amp Atorvastatin Calcium (Lipitor -) 20 mg PO HS [facility] Last Admin: 10/05/18 21:54 Dose: 20 mg Budesonide/Formoterol Fumarate (Symbicort 160/4.5mcg -) 2 puff IH BID [facility] Last Admin: 10/05/18 21:52 Dose: 2 puff Bupropion HCl (Wellbutrin -) 100 mg PO DAILY [facility] Last Admin: 10/05/18 09:33 Dose: 100 mg Cyclobenzaprine HCl (Flexeril -) 10 mg PO Q8H PRN PRN Reason: MUSCLE SPASMS Docusate Sodium (Colace -) 100 mg PO DAILY [facility] Last Admin: 10/05/18 09:32 Dose: 100 mg Ferrous Sulfate (Feosol -) 325 mg PO DAILY [facility] Last Admin: 10/05/18 09:32 Dose: 325 mg Fluticasone Propionate (Flonase -) 2 spray NS BID [facility] Last Admin: 10/05/18 21:52 Dose: 2 spray Vancomycin HCl (Vancomycin (Pre-Docked)) 1,000 mg in 250 mls @ 166.667 mls/hr IVPB BID@0300,1500 [facility]; Protocol Last Admin: 10/06/18 01:59 Dose: 166.667 mls/hr Aztreonam 1 gm/ Dextrose 50 mls @ 100 mls/hr IVPB Q8H-IV [facility]; Protocol Last Admin: 10/06/18 01:00 Dose: 100 mls/hr Loratadine (Claritin -) 10 mg PO DAILY [facility] Last Admin: 10/05/18 09:32 Dose: 10 mg Methylprednisolone Sodium Succinate (Solu-Medrol -) 40 mg IVPUSH TID [facility] Last Admin: 10/06/18 05:09 Dose: 40 mg Montelukast Sodium (Singulair -) 10 mg PO HS [facility] Last Admin: 10/05/18 21:54 Dose: 10 mg Nystatin (Nystatin Oral Suspension -) 500,000 units PO Q6HPO [facility] Last Admin: 10/06/18 05:10 Dose: 500,000 units Pantoprazole Sodium (Protonix -) 40 mg PO DAILY [facility] Last Admin: 10/05/18 09:33 Dose: 40 mg Polyethylene Glycol (Miralax (For Daily Use) -) 17 gm PO DAILY [facility] Last Admin: 10/05/18 09:33 Dose: Not Given Ranitidine HCl (Zantac -) 300 mg PO DAILY [facility] Last Admin: 10/05/18 09:33 Dose: 300 mg Senna (Senna -) 2 tab PO HS [facility] Last Admin: 10/05/18 21:54 Dose: 2 tab Sodium Chloride ([place] Nasal [place] -) 2 spray NS BID [facility] Last Admin: 10/05/18 22:54 Dose: 2 spray - Objective Vital Signs: Vital Signs Temperature 97.5 F L 10/06/18 06:23 Pulse Rate 89 10/06/18 06:23 Respiratory Rate 20 10/06/18 06:23 Blood Pressure 126/84 10/06/18 06:23 O2 Sat by Pulse Oximetry (%) 98 10/05/18 23:45 Constitutional: Yes: No Distress, Calm Cardiovascular: Yes: Regular Rate and Rhythm, S1, S2 Respiratory: Yes: Regular, Rhonchi (minimal, scattered). No: Wheezes Gastrointestinal: Yes: Normal Bowel Sounds, Soft. No: Tenderness Edema: No Neurological: Yes: Alert, Oriented Labs: CBC, BMP 10/05/18 05:30 10/05/18 05:30 Problem List - Problems (1) Acute exacerbation of COPD with asthma Code(s): J44.1 - CHRONIC OBSTRUCTIVE PULMONARY DISEASE W (ACUTE) EXACERBATION; J45.901 - UNSPECIFIED ASTHMA WITH (ACUTE) EXACERBATION (2) Hypertension Code(s): I10 - ESSENTIAL (PRIMARY) HYPERTENSION (3) HLD (hyperlipidemia) Code(s): E78.5 - HYPERLIPIDEMIA, UNSPECIFIED (4) CHF (congestive heart failure) Code(s): I50.9 - HEART FAILURE, UNSPECIFIED Qualifiers: (5) MGUS (monoclonal gammopathy of unknown significance) Code(s): D47.2 - MONOCLONAL GAMMOPATHY (6) GERD (gastroesophageal reflux disease) Code(s): K21.9 - GASTRO-ESOPHAGEAL REFLUX DISEASE WITHOUT ESOPHAGITIS Assessment/Plan IV Solu-Medrol -back to Q8H; to continue same Pulmonary, ID consults and f/u are appreciated [facility] GI proph AM labs Case was d/w Dr Pierre. Case was d/w pt's nurse.
--- NOTE | 2018-10-06 10:14 | PN ---
Progress Note (short form) - Note Progress Note: PULMONARY Breathing better today on increased steroids. Denies significant cough or wheezing. No fevers. Vital Signs Period Temp Pulse Resp BP Sys/Stringer Pulse Ox Last 24 Hr 97.5 F-98.3 F 89-102 20-20 110-126/74-84 98 Gen: less tachpyneic with speaking Heart: RRR Lung: distant breath sounds, no wheezes Abd: soft, nontender Ext: no edema CBC, BMP 10/05/18 05:30 10/05/18 05:30 Active Medications Al Hydroxide/Mg Hydroxide (Mylanta Oral Suspension -) 30 ml PO Q6H PRN PRN Reason: INDIGESTION Last Admin: 10/03/18 23:01 Dose: 30 ml Albuterol Sulfate (Ventolin 0.083% Nebulizer Soln -) 1 amp NEB Q4H PRN PRN Reason: SHORT OF BREATH/WHEEZING Albuterol/Ipratropium (Duoneb -) 1 amp NEB RQID [facility] Last Admin: 10/06/18 07:35 Dose: 1 amp Atorvastatin Calcium (Lipitor -) 20 mg PO HS [facility] Last Admin: 10/05/18 21:54 Dose: 20 mg Budesonide/Formoterol Fumarate (Symbicort 160/4.5mcg -) 2 puff IH BID [facility] Last Admin: 10/05/18 21:52 Dose: 2 puff Bupropion HCl (Wellbutrin -) 100 mg PO DAILY [facility] Last Admin: 10/05/18 09:33 Dose: 100 mg Cyclobenzaprine HCl (Flexeril -) 10 mg PO Q8H PRN PRN Reason: MUSCLE SPASMS Docusate Sodium (Colace -) 100 mg PO DAILY [facility] Last Admin: 10/05/18 09:32 Dose: 100 mg Ferrous Sulfate (Feosol -) 325 mg PO DAILY [facility] Last Admin: 10/05/18 09:32 Dose: 325 mg Fluticasone Propionate (Flonase -) 2 spray NS BID [facility] Last Admin: 10/05/18 21:52 Dose: 2 spray Vancomycin HCl (Vancomycin (Pre-Docked)) 1,000 mg in 250 mls @ 166.667 mls/hr IVPB BID@0300,1500 [facility]; Protocol Last Admin: 10/06/18 01:59 Dose: 166.667 mls/hr Aztreonam 1 gm/ Dextrose 50 mls @ 100 mls/hr IVPB Q8H-IV [facility]; Protocol Last Admin: 10/06/18 01:00 Dose: 100 mls/hr Loratadine (Claritin -) 10 mg PO DAILY [facility] Last Admin: 10/05/18 09:32 Dose: 10 mg Methylprednisolone Sodium Succinate (Solu-Medrol -) 40 mg IVPUSH TID [facility] Last Admin: 10/06/18 05:09 Dose: 40 mg Montelukast Sodium (Singulair -) 10 mg PO HS [facility] Last Admin: 10/05/18 21:54 Dose: 10 mg Nystatin (Nystatin Oral Suspension -) 500,000 units PO Q6HPO [facility] Last Admin: 10/06/18 05:10 Dose: 500,000 units Pantoprazole Sodium (Protonix -) 40 mg PO DAILY [facility] Last Admin: 10/05/18 09:33 Dose: 40 mg Polyethylene Glycol (Miralax (For Daily Use) -) 17 gm PO DAILY [facility] Last Admin: 10/05/18 09:33 Dose: Not Given Ranitidine HCl (Zantac -) 300 mg PO DAILY [facility] Last Admin: 10/05/18 09:33 Dose: 300 mg Senna (Senna -) 2 tab PO HS [facility] Last Admin: 10/05/18 21:54 Dose: 2 tab Sodium Chloride ([place] Nasal [place] -) 2 spray NS BID [facility] Last Admin: 10/05/18 22:54 Dose: 2 spray A/P Acute COPD Exacerbation Acute Bronchitis LV Diastolic Dysfunction Hypercholesterolemia Obstructive Sleep Apnea - continue medrol at current dose - inhaled bronchodilators - will order CPAP for tonight - antibiotics per ID - O2 to keep SpO2 >90% - DVT prophylaxis
[2018-10-06] MEDS: DOCUSATE SODIUM 100 MG CAPSULE (FP) PO SCH (11:50)
[2018-10-06] MEDS: RANITIDINE HCL 150 MG TABLET (FP) PO SCH (11:50)
[2018-10-06] MEDS: FERROUS SO4 325 MG TABLET (FP) PO SCH (11:50)
[2018-10-06] MEDS: LORATADINE 10 MG TABLET PO SCH (11:51)
[2018-10-06] MEDS: POLYETHYLENE GLYCOL 3350 119 GM BTL PO SCH (11:51)
[2018-10-06] MEDS: SODIUM CHLORIDE NASAL SPRAY 44 ML BOTTLE NS SCH ×2 (11:51→22:26)
[2018-10-06] MEDS: PANTOPRAZOLE 40 MG TABLET (FP) PO SCH (11:51)
[2018-10-06] MEDS: BUDESONIDE/FORMETEROL FUMARATE 160/4.5 mcg INHALER IH SCH ×2 (11:52→22:26)
[2018-10-06] MEDS: FLUTICASONE PROP 0.05% 16 GM NASAL SPRAY NS SCH ×2 (11:52→22:26)
[2018-10-06] MEDS: buPROPion HCL 100 MG TABLET PO SCH (11:54)
--- NOTE | 2018-10-06 15:33 | ECHO ---
Name: KRISSY LEAHY Exam:Adult Echocardiogram Study Date: 10/06/2018 10:30 AM Age: 63 yrs Reason For Study: CHF Height: 61 in Weight: 147 lb BSA: 1.7 m2 MMode/2D Measurements & Calculations IVSd: 1.0 cm Ao root diam: 2.6 cm LVIDd: 4.7 cm LA dimension: 3.4 cm LVIDs: 2.9 cm LVPWd: 0.94 cm EDV(Teich): 103.5 ml TAPSE: 2.3 cm ESV(Teich): 32.7 ml Doppler Measurements & Calculations MV E max sumanth: 40.0 cm/sec Med Peak E' Sumanth: 6.0 cm/sec MV A max sumanth: 56.8 cm/sec Med E/e': 6.6 MV E/A: 0.70 Lat Peak E' Sumanth: 4.5 cm/sec MV dec time: 0.13 sec Lat E/e': 8.9 Procedure A complete two-dimensional transthoracic echocardiogram was performed (2D, M-mode, Doppler and color flow Doppler). Left Ventricle The left ventricular size, thickness and function are normal. The left ventricular ejection fraction is normal. Ejection Fraction = 60-65%. The left ventricular wall motion is normal. Right Ventricle The right ventricle is normal in size and function. Atria Normal left and right atrial size and function. The atrial septum is aneurysmal. Mitral Valve There is no mitral regurgitation noted. Tricuspid Valve There is trace tricuspid regurgitation. There was insufficient TR detected to calculate RV systolic p ressure. Aortic Valve No hemodynamically significant valvular aortic stenosis. No aortic regurgitation is present. Pulmonic Valve There is no pulmonic valvular regurgitation. Great Vessels The aortic root is normal size. Pericardium/Pleura There is no pericardial effusion. Interpretation Summary The left ventricular size, thickness and function are normal The right ventricle is normal in size and function. The atrial septum is aneurysmal. There is trace tricuspid regurgitation. MD Jadiel Leal 10/06/2018 03:32 PM
--- NOTE | 2018-10-06 18:41 | PN ---
Progress Note (short form) - Note Progress Note: ENT no further nasal bleeding had parotid surgery Dr. Galvez [facility] some minor healing problems, thinks related to chronic prednisone PE NAD no bleeding from nose Impression epistaxis, resolved obstructive sleep apnea syndrome Recommend continue nasal saline spray, observe for nasal bleeding consider CPAP as severe BEHZAD found on PSG Problem List - Problems (1) Thrush Code(s): B37.0 - CANDIDAL STOMATITIS (2) Obstructive sleep apnea Code(s): G47.33 - OBSTRUCTIVE SLEEP APNEA (ADULT) (PEDIATRIC) (3) Epistaxis Code(s): R04.0 - EPISTAXIS
[2018-10-06] MEDS: MONTELUKAST NA 10 MG TABLET PO SCH (22:25)
[2018-10-06] MEDS: SENNOSIDES 8.6MG TABLET (FP) PO SCH (22:25)
[2018-10-06] MEDS: ATORVASTATIN CA 20 MG TABLET (FP) PO SCH (22:25)
[2018-10-06] MEDS ORDERED: guaiFENesin/D-METHORPHAN HB 10 ML UNIT-DOSE CUPS PO PRN (23:19)
[2018-10-07] MEDS: AZTREONAM 1 GM in DEXTROSE 5%-WATER - 50 ML IVPB SCH ×2 (01:26→09:37)
[2018-10-07] MEDS: VANCOMYCIN 1 GRAM (PRE-DOCKED) 1,000 MG/250 ML BAG IVPB SCH (03:01)
[2018-10-07] MEDS: ALBUTEROL SO4 0.083% IH SOL 2.5 MG/3 ML VIAL.NEB. NEB PRN (04:06)
[2018-10-07] MEDS: methylPREDNISolone NA SUCC 40 MG/1 ML VIAL IVPUSH SCH ×3 (06:55→21:29)
[2018-10-07] MEDS: NYSTATIN 500,000 UNITS/5 ML SUSPENSION PO SCH ×4 (06:55→23:46)
[2018-10-07] MEDS: ALBUTEROL SO4 2.5/IPRATROPIUM 0.5 INH SOL 3 ML VIAL.NEB. NEB SCH ×4 (07:19→20:40)
[2018-10-07 07:48] LABS: HEMATOCRIT 36.7 % (32.4-45.2); HEMOGLOBIN 11.3 GM/dL (10.7-15.3); MCH 23.2 pg (25.7-33.7); MCHC 30.7 g/dl (32.0-36.0); MEAN CELL VOLUME 75.5 fl (80-96); MEAN PLT VOLUME 7.5 fl (7.5-11.1); PLATELET COUNT 351 K/MM3 (134-434); RBC 4.87 M/mm3 (3.60-5.2); RDW 19.1 % (11.6-15.6)
[2018-10-07 08:50] LABS: ANION GAP 7 MMOL/L (8-16); BLOOD UREA NITROGEN 18 mg/dL (7-18); CALCIUM 8.7 mg/dL (8.5-10.1); CHLORIDE 105 mmol/L (98-107); CO2 28 mmol/L (21-32); CREATININE 0.6 mg/dL (0.55-1.3); GLUCOSE,RANDOM 132 mg/dL (74-106); SODIUM 140 mmol/L (136-145)
[2018-10-07] MEDS ORDERED: PT OWN MED DRAWER 7, Y5N ONE ×2 (09:32→21:21)
[2018-10-07] MEDS: DOCUSATE SODIUM 100 MG CAPSULE (FP) PO SCH (09:35)
[2018-10-07] MEDS: LORATADINE 10 MG TABLET PO SCH (09:35)
[2018-10-07] MEDS: FERROUS SO4 325 MG TABLET (FP) PO SCH (09:35)
[2018-10-07] MEDS: POLYETHYLENE GLYCOL 3350 119 GM BTL PO SCH (09:36)
[2018-10-07] MEDS: PANTOPRAZOLE 40 MG TABLET (FP) PO SCH (09:36)
[2018-10-07] MEDS: RANITIDINE HCL 150 MG TABLET (FP) PO SCH (09:37)
[2018-10-07] MEDS: buPROPion HCL 100 MG TABLET PO SCH (09:37)
[2018-10-07] MEDS: FLUTICASONE PROP 0.05% 16 GM NASAL SPRAY NS SCH ×2 (09:38→21:28)
[2018-10-07] MEDS: BUDESONIDE/FORMETEROL FUMARATE 160/4.5 mcg INHALER IH SCH ×2 (09:38→21:29)
[2018-10-07] MEDS: SODIUM CHLORIDE NASAL SPRAY 44 ML BOTTLE NS SCH ×2 (09:40→21:28)
--- NOTE | 2018-10-07 11:52 | PN ---
Progress Note (short form) - Note Progress Note: PULMONARY NO FURTHER EPISTAXSIS COMPLETED 7 DAYS OF IV ANTIBIOTICS VSS ANICTERIC/CUSHINOID FEATURES B/L WHEEZES S1S2 BS+ NO EDEMA LABS/MEDS/NOTES/MICRO REVIEWED Viral like symptoms preceding acute on chronic exacerbation of copd/bronchospasm Chronic high dose steroid use/daily zithromax for prophylaxsis Multiple co-morbid conditions o2 supplementation urine antigens for legionella/strep negative multiple antibiotic allergies medrol/bronchodilators/singulair antibiotics as per LOU MARSH MD Problem List - Problems (1) Acute bronchitis Code(s): J20.9 - ACUTE BRONCHITIS, UNSPECIFIED (2) COPD (chronic obstructive pulmonary disease) Code(s): J44.9 - CHRONIC OBSTRUCTIVE PULMONARY DISEASE, UNSPECIFIED Qualifiers: COPD type: COPD with acute exacerbation Qualified Code(s): J44.1 - Chronic obstructive pulmonary disease with (acute) exacerbation (3) HLD (hyperlipidemia) Code(s): E78.5 - HYPERLIPIDEMIA, UNSPECIFIED (4) Hypertension Code(s): I10 - ESSENTIAL (PRIMARY) HYPERTENSION (5) Acute exacerbation of COPD with asthma Code(s): J44.1 - CHRONIC OBSTRUCTIVE PULMONARY DISEASE W (ACUTE) EXACERBATION; J45.901 - UNSPECIFIED ASTHMA WITH (ACUTE) EXACERBATION (6) Acute on chronic respiratory failure with hypoxia Code(s): J96.21 - ACUTE AND CHRONIC RESPIRATORY FAILURE WITH HYPOXIA (7) Asthma Code(s): J45.909 - UNSPECIFIED ASTHMA, UNCOMPLICATED Qualifiers: Asthma severity: moderate Asthma persistence: persistent Asthma complication type: with acute exacerbation Qualified Code(s): J45.41 - Moderate persistent asthma with (acute) exacerbation (8) Asthma exacerbation Code(s): J45.901 - UNSPECIFIED ASTHMA WITH (ACUTE) EXACERBATION
[2018-10-07] MEDS: ATORVASTATIN CA 20 MG TABLET (FP) PO SCH (21:28)
[2018-10-07] MEDS: SENNOSIDES 8.6MG TABLET (FP) PO SCH (21:28)
[2018-10-07] MEDS: MONTELUKAST NA 10 MG TABLET PO SCH (21:29)
--- NOTE | 2018-10-07 23:31 | PN ---
Progress Note, Physician History of Present Illness: Pt with breathing the same like yesterday morning; last night she had some trouble breathing Pt w/o CP, palpitations, abd pain, nausea, vomiting. Pt with daily BM - Current Medication List Current Medications: Active Medications Al Hydroxide/Mg Hydroxide (Mylanta Oral Suspension -) 30 ml PO Q6H PRN PRN Reason: INDIGESTION Last Admin: 10/03/18 23:01 Dose: 30 ml Albuterol Sulfate (Ventolin 0.083% Nebulizer Soln -) 1 amp NEB Q4H PRN PRN Reason: SHORT OF BREATH/WHEEZING Last Admin: 10/07/18 04:06 Dose: 1 amp Albuterol/Ipratropium (Duoneb -) 1 amp NEB RQID [facility] Last Admin: 10/07/18 20:40 Dose: 1 amp Atorvastatin Calcium (Lipitor -) 20 mg PO [facility] Last Admin: 10/07/18 21:28 Dose: 20 mg Budesonide/Formoterol Fumarate (Symbicort 160/4.5mcg -) 2 puff IH BID [facility] Last Admin: 10/07/18 21:29 Dose: 2 puff Bupropion HCl (Wellbutrin -) 100 mg PO DAILY [facility] Last Admin: 10/07/18 09:37 Dose: 100 mg Cyclobenzaprine HCl (Flexeril -) 10 mg PO Q8H PRN PRN Reason: MUSCLE SPASMS Docusate Sodium (Colace -) 100 mg PO DAILY [facility] Last Admin: 10/07/18 09:35 Dose: 100 mg Ferrous Sulfate (Feosol -) 325 mg PO DAILY [facility] Last Admin: 10/07/18 09:35 Dose: 325 mg Fluticasone Propionate (Flonase -) 2 spray NS BID [facility] Last Admin: 10/07/18 21:28 Dose: 2 spray Guaifenesin (Robitussin Dm -) 10 ml PO Q4H PRN PRN Reason: COUGH Loratadine (Claritin -) 10 mg PO DAILY [facility] Last Admin: 10/07/18 09:35 Dose: 10 mg Methylprednisolone Sodium Succinate (Solu-Medrol -) 40 mg IVPUSH TID [facility] Last Admin: 10/07/18 21:29 Dose: 40 mg Montelukast Sodium (Singulair -) 10 mg PO [facility] Last Admin: 10/07/18 21:29 Dose: 10 mg Nystatin (Nystatin Oral Suspension -) 500,000 units PO Q6HPO [facility] Last Admin: 10/07/18 17:23 Dose: 500,000 units Pantoprazole Sodium (Protonix -) 40 mg PO DAILY [facility] Last Admin: 10/07/18 09:36 Dose: 40 mg Polyethylene Glycol (Miralax (For Daily Use) -) 17 gm PO DAILY [facility] Last Admin: 10/07/18 09:36 Dose: Not Given Ranitidine HCl (Zantac -) 300 mg PO DAILY [facility] Last Admin: 10/07/18 09:37 Dose: 300 mg Senna (Senna -) 2 tab PO HS [facility] Last Admin: 10/07/18 21:28 Dose: 2 tab Sodium Chloride ([place] Nasal [place] -) 2 spray NS BID [facility] Last Admin: 10/07/18 21:28 Dose: 2 spray - Objective Vital Signs: Vital Signs Temperature 97.4 F L 10/07/18 21:25 Pulse Rate 90 10/07/18 21:25 Respiratory Rate 18 10/07/18 21:25 Blood Pressure 124/76 10/07/18 21:25 O2 Sat by Pulse Oximetry (%) 99 10/07/18 22:49 Constitutional: Yes: No Distress, Calm Cardiovascular: Yes: Regular Rate and Rhythm, S1, S2 Respiratory: Yes: Regular, Wheezes (expiratory, minimal) Gastrointestinal: Yes: Normal Bowel Sounds, Soft. No: Tenderness Edema: No Labs: CBC, BMP 10/07/18 06:30 10/07/18 06:30 Problem List - Problems (1) Acute exacerbation of COPD with asthma Code(s): J44.1 - CHRONIC OBSTRUCTIVE PULMONARY DISEASE W (ACUTE) EXACERBATION; J45.901 - UNSPECIFIED ASTHMA WITH (ACUTE) EXACERBATION (2) Hypertension Code(s): I10 - ESSENTIAL (PRIMARY) HYPERTENSION (3) HLD (hyperlipidemia) Code(s): E78.5 - HYPERLIPIDEMIA, UNSPECIFIED (4) CHF (congestive heart failure) Code(s): I50.9 - HEART FAILURE, UNSPECIFIED Qualifiers: (5) MGUS (monoclonal gammopathy of unknown significance) Code(s): D47.2 - MONOCLONAL GAMMOPATHY (6) GERD (gastroesophageal reflux disease) Code(s): K21.9 - GASTRO-ESOPHAGEAL REFLUX DISEASE WITHOUT ESOPHAGITIS Assessment/Plan IV Solu-Medrol -per Pulmonary Pulmonary, ID consults and f/u are appreciated OOBTC GI proph AM labs Case was d/w pt's nurse.
--- NOTE | 2018-10-08 02:26 | PN ---
Progress Note, Physician Chief Complaint: Pt sitting up at bedside; still easily dyspneic; denies chest pain unless she coughs. History of Present Illness: The patient is a 63 year old white female, with a significant PMH of asthma, COPD, hyperlipidemia, hypertension, CHF (diastolic dysfunction), MGUS, peripheral neuropathy, GERD, hypothyroidism, who presents to the emergency department with asthma exacerbation beginning just prior to arrival. The patient states she received Decadron from EMS prior to arrival in the ED. The patient states she has not been feeling well for 2 days and endorses a productive cough with yellow sputum. The patient states she is on prednisone 80 mg for [address] James and a low dose of azithromycin. The patient denies any recent sick contacts or travel. The patient states she did receive a flu shot earlier this year. - Current Medication List Current Medications: Active Medications Al Hydroxide/Mg Hydroxide (Mylanta Oral Suspension -) 30 ml PO Q6H PRN PRN Reason: INDIGESTION Last Admin: 10/03/18 23:01 Dose: 30 ml Albuterol Sulfate (Ventolin 0.083% Nebulizer Soln -) 1 amp NEB Q4H PRN PRN Reason: SHORT OF BREATH/WHEEZING Last Admin: 10/07/18 04:06 Dose: 1 amp Albuterol/Ipratropium (Duoneb -) 1 amp NEB RQID [facility] Last Admin: 10/07/18 20:40 Dose: 1 amp Atorvastatin Calcium (Lipitor -) 20 mg PO HS [facility] Last Admin: 10/07/18 21:28 Dose: 20 mg Budesonide/Formoterol Fumarate (Symbicort 160/4.5mcg -) 2 puff IH BID [facility] Last Admin: 10/07/18 21:29 Dose: 2 puff Bupropion HCl (Wellbutrin -) 100 mg PO DAILY [facility] Last Admin: 10/07/18 09:37 Dose: 100 mg Cyclobenzaprine HCl (Flexeril -) 10 mg PO Q8H PRN PRN Reason: MUSCLE SPASMS Docusate Sodium (Colace -) 100 mg PO DAILY [facility] Last Admin: 10/07/18 09:35 Dose: 100 mg Ferrous Sulfate (Feosol -) 325 mg PO DAILY [facility] Last Admin: 10/07/18 09:35 Dose: 325 mg Fluticasone Propionate (Flonase -) 2 spray NS BID [facility] Last Admin: 10/07/18 21:28 Dose: 2 spray Guaifenesin (Robitussin Dm -) 10 ml PO Q4H PRN PRN Reason: COUGH Loratadine (Claritin -) 10 mg PO DAILY [facility] Last Admin: 10/07/18 09:35 Dose: 10 mg Methylprednisolone Sodium Succinate (Solu-Medrol -) 40 mg IVPUSH TID [facility] Last Admin: 10/07/18 21:29 Dose: 40 mg Montelukast Sodium (Singulair -) 10 mg PO HS [facility] Last Admin: 10/07/18 21:29 Dose: 10 mg Nystatin (Nystatin Oral Suspension -) 500,000 units PO Q6HPO [facility] Last Admin: 10/07/18 23:46 Dose: 500,000 units Pantoprazole Sodium (Protonix -) 40 mg PO DAILY [facility] Last Admin: 10/07/18 09:36 Dose: 40 mg Polyethylene Glycol (Miralax (For Daily Use) -) 17 gm PO DAILY [facility] Last Admin: 10/07/18 09:36 Dose: Not Given Ranitidine HCl (Zantac -) 300 mg PO DAILY [facility] Last Admin: 10/07/18 09:37 Dose: 300 mg Senna (Senna -) 2 tab PO [facility] Last Admin: 10/07/18 21:28 Dose: 2 tab Sodium Chloride ([place] Nasal [place] -) 2 spray NS BID [facility] Last Admin: 10/07/18 21:28 Dose: 2 spray - Objective Vital Signs: Vital Signs Temperature 97.4 F L 10/07/18 21:25 Pulse Rate 90 10/07/18 21:25 Respiratory Rate 18 10/07/18 21:25 Blood Pressure 124/76 10/07/18 21:25 O2 Sat by Pulse Oximetry (%) 99 10/07/18 22:49 Constitutional: Yes: Anxious, Mild Distress Eyes: Yes: WNL HENT: Yes: WNL Cardiovascular: Yes: S1, S2 Respiratory: Yes: Diminished, Intubated, SOB, Tachypnea, Wheezes Gastrointestinal: Yes: Soft ...Rectal Exam: Yes: Deferred Genitourinary: No: Anuria Breast(s): Yes: WNL Musculoskeletal: Yes: Muscle Weakness Extremities: Yes: Cool Edema: No Peripheral Pulses WNL: No Peripheral Pulses: Right Dorsalis Pedis: 1+, Left Femoral: 1+ Integumentary: Yes: WNL Wound/Incision: Yes: Unapproximated Neurological: Yes: Alert, Oriented, Weakness Psychiatric: Yes: Alert, Oriented Labs: CBC, BMP 10/07/18 06:30 10/07/18 06:30 Abnormal Lab Results 10/07/18 10/07/18 06:30 06:30 WBC 22.0 H MCV 75.5 L MCH 23.2 L MCHC 30.7 L RDW 19.1 H Anion Gap 7 L Random Glucose 132 H - ....Imaging Ultrasound: Image Reviewed Problem List - Problems (1) Diastolic CHF Assessment/Plan: ECHO 10/06/2017:normal LVEF; aneuysmal atrial septum. ECHO 10/2017: normal LVEF; small pericardial effusion. Continues with episodes of dyspnea with minimal exertion. Very limited exercise; pt says she gets tired and dyspneic easily. BUN/Cr, electrolytes, Is and Os, daily weight. TSH WNL. Code(s): I50.30 - UNSPECIFIED DIASTOLIC (CONGESTIVE) HEART FAILURE (2) Acute bronchitis Code(s): J20.9 - ACUTE BRONCHITIS, UNSPECIFIED (3) Diabetes mellitus Code(s): E11.9 - TYPE 2 DIABETES MELLITUS WITHOUT COMPLICATIONS (4) HLD (hyperlipidemia) Code(s): E78.5 - HYPERLIPIDEMIA, UNSPECIFIED (5) Hypertension Code(s): I10 - ESSENTIAL (PRIMARY) HYPERTENSION (6) Acute exacerbation of COPD with asthma Code(s): J44.1 - CHRONIC OBSTRUCTIVE PULMONARY DISEASE W (ACUTE) EXACERBATION; J45.901 - UNSPECIFIED ASTHMA WITH (ACUTE) EXACERBATION (7) MGUS (monoclonal gammopathy of unknown significance) Code(s): D47.2 - MONOCLONAL GAMMOPATHY (8) [place] cardiac risk >20% in next 10 years Code(s): Z91.89 - OTH PERSONAL RISK FACTORS, NOT ELSEWHERE CLASSIFIED (9) Asthma Code(s): J45.909 - UNSPECIFIED ASTHMA, UNCOMPLICATED Qualifiers: Asthma severity: moderate Asthma persistence: persistent Asthma complication type: with acute exacerbation Qualified Code(s): J45.41 - Moderate persistent asthma with (acute) exacerbation (10) Anxiety Code(s): F41.9 - ANXIETY DISORDER, UNSPECIFIED
--- NOTE | 2018-10-08 02:33 | PN ---
Progress Note, Physician Chief Complaint: Pt sitting up at bedside; still easily dyspneic, and worries she does not seem to be getting better. History of Present Illness: The patient is a 63 year old white female, with a significant PMH of asthma, COPD, hyperlipidemia, hypertension, CHF (diastolic dysfunction), MGUS, peripheral neuropathy, GERD, hypothyroidism, who presents to the emergency department with asthma exacerbation beginning just prior to arrival. The patient states she received Decadron from EMS prior to arrival in the ED. The patient states she has not been feeling well for 2 days and endorses a productive cough with yellow sputum. The patient states she is on prednisone 80 mg for [address] James and a low dose of azithromycin. The patient denies any recent sick contacts or travel. The patient states she did receive a flu shot earlier this year. - Current Medication List Current Medications: Active Medications Al Hydroxide/Mg Hydroxide (Mylanta Oral Suspension -) 30 ml PO Q6H PRN PRN Reason: INDIGESTION Last Admin: 10/03/18 23:01 Dose: 30 ml Albuterol Sulfate (Ventolin 0.083% Nebulizer Soln -) 1 amp NEB Q4H PRN PRN Reason: SHORT OF BREATH/WHEEZING Last Admin: 10/07/18 04:06 Dose: 1 amp Albuterol/Ipratropium (Duoneb -) 1 amp NEB RQID [facility] Last Admin: 10/07/18 20:40 Dose: 1 amp Atorvastatin Calcium (Lipitor -) 20 mg PO HS [facility] Last Admin: 10/07/18 21:28 Dose: 20 mg Budesonide/Formoterol Fumarate (Symbicort 160/4.5mcg -) 2 puff IH BID [facility] Last Admin: 10/07/18 21:29 Dose: 2 puff Bupropion HCl (Wellbutrin -) 100 mg PO DAILY [facility] Last Admin: 10/07/18 09:37 Dose: 100 mg Cyclobenzaprine HCl (Flexeril -) 10 mg PO Q8H PRN PRN Reason: MUSCLE SPASMS Docusate Sodium (Colace -) 100 mg PO DAILY [facility] Last Admin: 10/07/18 09:35 Dose: 100 mg Ferrous Sulfate (Feosol -) 325 mg PO DAILY [facility] Last Admin: 10/07/18 09:35 Dose: 325 mg Fluticasone Propionate (Flonase -) 2 spray NS BID [facility] Last Admin: 10/07/18 21:28 Dose: 2 spray Guaifenesin (Robitussin Dm -) 10 ml PO Q4H PRN PRN Reason: COUGH Loratadine (Claritin -) 10 mg PO DAILY [facility] Last Admin: 10/07/18 09:35 Dose: 10 mg Methylprednisolone Sodium Succinate (Solu-Medrol -) 40 mg IVPUSH TID [facility] Last Admin: 10/07/18 21:29 Dose: 40 mg Montelukast Sodium (Singulair -) 10 mg PO HS [facility] Last Admin: 10/07/18 21:29 Dose: 10 mg Nystatin (Nystatin Oral Suspension -) 500,000 units PO Q6HPO [facility] Last Admin: 10/07/18 23:46 Dose: 500,000 units Pantoprazole Sodium (Protonix -) 40 mg PO DAILY [facility] Last Admin: 10/07/18 09:36 Dose: 40 mg Polyethylene Glycol (Miralax (For Daily Use) -) 17 gm PO DAILY [facility] Last Admin: 10/07/18 09:36 Dose: Not Given Ranitidine HCl (Zantac -) 300 mg PO DAILY [facility] Last Admin: 10/07/18 09:37 Dose: 300 mg Senna (Senna -) 2 tab PO [facility] Last Admin: 10/07/18 21:28 Dose: 2 tab Sodium Chloride ([place] Nasal [place] -) 2 spray NS BID [facility] Last Admin: 10/07/18 21:28 Dose: 2 spray - Objective Vital Signs: Vital Signs Temperature 97.4 F L 10/07/18 21:25 Pulse Rate 90 10/07/18 21:25 Respiratory Rate 18 10/07/18 21:25 Blood Pressure 124/76 10/07/18 21:25 O2 Sat by Pulse Oximetry (%) 99 10/07/18 22:49 Constitutional: Yes: Anxious, Moderate Distress (decreased with reassurance) Eyes: Yes: WNL HENT: Yes: WNL Neck: Yes: WNL Cardiovascular: Yes: S1 Respiratory: Yes: Diminished, On Nasal O2 Labs: CBC, BMP 10/07/18 06:30 10/07/18 06:30 Problem List - Problems (1) Diastolic CHF Code(s): I50.30 - UNSPECIFIED DIASTOLIC (CONGESTIVE) HEART FAILURE (2) Acute bronchitis Code(s): J20.9 - ACUTE BRONCHITIS, UNSPECIFIED (3) Diabetes mellitus Code(s): E11.9 - TYPE 2 DIABETES MELLITUS WITHOUT COMPLICATIONS (4) HLD (hyperlipidemia) Code(s): E78.5 - HYPERLIPIDEMIA, UNSPECIFIED (5) Hypertension Code(s): I10 - ESSENTIAL (PRIMARY) HYPERTENSION (6) Acute exacerbation of COPD with asthma Code(s): J44.1 - CHRONIC OBSTRUCTIVE PULMONARY DISEASE W (ACUTE) EXACERBATION; J45.901 - UNSPECIFIED ASTHMA WITH (ACUTE) EXACERBATION (7) MGUS (monoclonal gammopathy of unknown significance) Assessment/Plan: f/u with heme/onc Code(s): D47.2 - MONOCLONAL GAMMOPATHY (8) [place] cardiac risk >20% in next 10 years Assessment/Plan: Stress dobutamine mibi 10/2017: no ischemia, but suboptimal HR reached. Pt c/o increasing episodes of dyspnea she thinks are not related to asthma. Episode of "bad heartburn" at rest yesterday, lasting about an hour, with some response to Prilosec. Discussed possibility of coronary angiogram with her; she will consider it. Code(s): Z91.89 - OTH PERSONAL RISK FACTORS, NOT ELSEWHERE CLASSIFIED (9) Asthma Code(s): J45.909 - UNSPECIFIED ASTHMA, UNCOMPLICATED Qualifiers: Asthma severity: moderate Asthma persistence: persistent Asthma complication type: with acute exacerbation Qualified Code(s): J45.41 - Moderate persistent asthma with (acute) exacerbation (10) Anxiety Assessment/Plan: Her poor health and "over 400 hospital admissions" has her afraid and depressed as she gets older; "I want to be around for my grandchildren". Code(s): F41.9 - ANXIETY DISORDER, UNSPECIFIED (11) Sleep apnea Assessment/Plan: noncompliant for months to Rx at home; will try CPAP and mask today. Code(s): G47.30 - SLEEP APNEA, UNSPECIFIED
[2018-10-08] MEDS: NYSTATIN 500,000 UNITS/5 ML SUSPENSION PO SCH ×3 (05:26→18:30)
[2018-10-08] MEDS: methylPREDNISolone NA SUCC 40 MG/1 ML VIAL IVPUSH SCH ×2 (05:26→22:35)
[2018-10-08 06:53] LABS: HEMOGLOBIN 11.2 GM/dL (10.7-15.3); MCH 22.9 pg (25.7-33.7); MCHC 30.2 g/dl (32.0-36.0); MEAN CELL VOLUME 75.8 fl (80-96); MEAN PLT VOLUME 7.6 fl (7.5-11.1); PLATELET COUNT 344 K/MM3 (134-434); RBC 4.88 M/mm3 (3.60-5.2); RDW 19.4 % (11.6-15.6); WHITE BLOOD COUNT 22.8 K/mm3 (4.0-10.0)
[2018-10-08] MEDS: ALBUTEROL SO4 2.5/IPRATROPIUM 0.5 INH SOL 3 ML VIAL.NEB. NEB SCH ×4 (07:45→20:30)
[2018-10-08 07:50] LABS: ANION GAP 8 MMOL/L (8-16); BLOOD UREA NITROGEN 21 mg/dL (7-18); CALCIUM 8.4 mg/dL (8.5-10.1); CHLORIDE 101 mmol/L (98-107); CO2 28 mmol/L (21-32); CREATININE 0.7 mg/dL (0.55-1.3); GLUCOSE,RANDOM 113 mg/dL (74-106); POTASSIUM 4.1 mmol/L (3.5-5.1); SODIUM 137 mmol/L (136-145)
--- NOTE | 2018-10-08 09:19 | PN ---
Progress Note, Physician Chief Complaint: feeling better less SOB no nose bleeds - Current Medication List Current Medications: Active Medications Al Hydroxide/Mg Hydroxide (Mylanta Oral Suspension -) 30 ml PO Q6H PRN PRN Reason: INDIGESTION Last Admin: 10/03/18 23:01 Dose: 30 ml Albuterol Sulfate (Ventolin 0.083% Nebulizer Soln -) 1 amp NEB Q4H PRN PRN Reason: SHORT OF BREATH/WHEEZING Last Admin: 10/07/18 04:06 Dose: 1 amp Albuterol/Ipratropium (Duoneb -) 1 amp NEB RQID [facility] Last Admin: 10/07/18 20:40 Dose: 1 amp Atorvastatin Calcium (Lipitor -) 20 mg PO [facility] Last Admin: 10/07/18 21:28 Dose: 20 mg Budesonide/Formoterol Fumarate (Symbicort 160/4.5mcg -) 2 puff IH BID [facility] Last Admin: 10/07/18 21:29 Dose: 2 puff Bupropion HCl (Wellbutrin -) 100 mg PO DAILY [facility] Last Admin: 10/07/18 09:37 Dose: 100 mg Cyclobenzaprine HCl (Flexeril -) 10 mg PO Q8H PRN PRN Reason: MUSCLE SPASMS Docusate Sodium (Colace -) 100 mg PO DAILY [facility] Last Admin: 10/07/18 09:35 Dose: 100 mg Ferrous Sulfate (Feosol -) 325 mg PO DAILY [facility] Last Admin: 10/07/18 09:35 Dose: 325 mg Fluticasone Propionate (Flonase -) 2 spray NS BID [facility] Last Admin: 10/07/18 21:28 Dose: 2 spray Guaifenesin (Robitussin Dm -) 10 ml PO Q4H PRN PRN Reason: COUGH Loratadine (Claritin -) 10 mg PO DAILY [facility] Last Admin: 10/07/18 09:35 Dose: 10 mg Methylprednisolone Sodium Succinate (Solu-Medrol -) 40 mg IVPUSH TID [facility] Last Admin: 10/08/18 05:26 Dose: 40 mg Montelukast Sodium (Singulair -) 10 mg PO HS [facility] Last Admin: 10/07/18 21:29 Dose: 10 mg Nystatin (Nystatin Oral Suspension -) 500,000 units PO Q6HPO [facility] Last Admin: 10/08/18 05:26 Dose: 500,000 units Pantoprazole Sodium (Protonix -) 40 mg PO DAILY [facility] Last Admin: 10/07/18 09:36 Dose: 40 mg Polyethylene Glycol (Miralax (For Daily Use) -) 17 gm PO DAILY [facility] Last Admin: 10/07/18 09:36 Dose: Not Given Ranitidine HCl (Zantac -) 300 mg PO DAILY [facility] Last Admin: 10/07/18 09:37 Dose: 300 mg Senna (Senna -) 2 tab PO HS [facility] Last Admin: 10/07/18 21:28 Dose: 2 tab Sodium Chloride ([place] Nasal [place] -) 2 spray NS BID [facility] Last Admin: 10/07/18 21:28 Dose: 2 spray - Objective Vital Signs: Vital Signs Temperature 97.3 F L 10/08/18 06:00 Pulse Rate 88 10/08/18 06:00 Respiratory Rate 18 10/08/18 06:00 Blood Pressure 130/85 10/08/18 06:00 O2 Sat by Pulse Oximetry (%) 99 10/07/18 22:49 Constitutional: Yes: No Distress, Calm Eyes: Yes: Conjunctiva Clear HENT: Yes: Atraumatic Neck: Yes: Supple Cardiovascular: Yes: Regular Rate and Rhythm Respiratory: Yes: Wheezes (few scattered expiratory bilateral) Gastrointestinal: Yes: Soft. No: Distention Genitourinary: No: CVA Tenderness - Left, CVA Tenderness - Right Musculoskeletal: No: Joint Stiffness, Joint Swelling Extremities: No: Cold, Cool Edema: No Integumentary: No: Rash, Venous Stasis Changes Neurological: Yes: WNL, Alert, Oriented ...Motor Strength: WNL Psychiatric: Yes: WNL, Alert, Oriented. No: Agitated Labs: CBC, BMP 10/08/18 06:30 10/08/18 06:30 - ....Imaging Other: Report Reviewed Assessment/Plan Acute URI with acute on chronic exacerbation of copd/bronchospasm Chronic high dose steroid use/daily zithromax for prophylaxsis Multiple co-morbid conditions HTN HLP obesity COPD / asthma O2 dependant multiple antibiotic allergies o2 supplementation NC continuous medrol/bronchodilators/singulair and antibiotics per ID and pulmonary taper steroids from TID to BID PPI for GERD Tx, GI f/u outpt cardiology f/u ENT f/u falls DVT gastric PFX d/w pt and staff
[2018-10-08] MEDS ORDERED: PT OWN MED DRAWER 7, Y5N ONE (10:22)
[2018-10-08] MEDS: LORATADINE 10 MG TABLET PO SCH (10:49)
[2018-10-08] MEDS: RANITIDINE HCL 150 MG TABLET (FP) PO SCH (10:49)
[2018-10-08] MEDS: DOCUSATE SODIUM 100 MG CAPSULE (FP) PO SCH (10:50)
[2018-10-08] MEDS: PANTOPRAZOLE 40 MG TABLET (FP) PO SCH (10:50)
[2018-10-08] MEDS: FERROUS SO4 325 MG TABLET (FP) PO SCH (10:50)
[2018-10-08] MEDS: POLYETHYLENE GLYCOL 3350 119 GM BTL PO SCH (10:51)
[2018-10-08] MEDS: BUDESONIDE/FORMETEROL FUMARATE 160/4.5 mcg INHALER IH SCH ×2 (10:51→22:35)
[2018-10-08] MEDS: FLUTICASONE PROP 0.05% 16 GM NASAL SPRAY NS SCH ×2 (10:51→22:35)
[2018-10-08] MEDS: SODIUM CHLORIDE NASAL SPRAY 44 ML BOTTLE NS SCH ×2 (10:51→22:35)
[2018-10-08] MEDS: buPROPion HCL 100 MG TABLET PO SCH (10:52)
--- NOTE | 2018-10-08 11:08 | PN ---
Progress Note (short form) - Note Progress Note: Breathing feels a little better today. Does report some mild MS discomfort from using CPAP overnight. Less cough or wheezing. No fevers. Intake & Output 10/05/18 10/06/18 10/07/18 10/08/18 23:59 23:59 23:59 23:59 Intake Total 1010 1300 590 240 Balance 1010 1300 590 240 Weight 147 lb Last Vital Signs Temp Pulse Resp BP Pulse Ox 97.3 F L 88 18 130/85 99 10/08/18 06:00 10/08/18 06:00 10/08/18 06:00 10/08/18 06:00 10/07/18 22:49 Active Medications Al Hydroxide/Mg Hydroxide (Mylanta Oral Suspension -) 30 ml PO Q6H PRN PRN Reason: INDIGESTION Last Admin: 10/03/18 23:01 Dose: 30 ml Albuterol Sulfate (Ventolin 0.083% Nebulizer Soln -) 1 amp NEB Q4H PRN PRN Reason: SHORT OF BREATH/WHEEZING Last Admin: 10/07/18 04:06 Dose: 1 amp Albuterol/Ipratropium (Duoneb -) 1 amp NEB RQID [facility] Last Admin: 10/08/18 07:45 Dose: 1 amp Atorvastatin Calcium (Lipitor -) 20 mg PO HS [facility] Last Admin: 10/07/18 21:28 Dose: 20 mg Budesonide/Formoterol Fumarate (Symbicort 160/4.5mcg -) 2 puff IH BID [facility] Last Admin: 10/08/18 10:51 Dose: 2 puff Bupropion HCl (Wellbutrin -) 100 mg PO DAILY [facility] Last Admin: 10/08/18 10:52 Dose: 100 mg Cyclobenzaprine HCl (Flexeril -) 10 mg PO Q8H PRN PRN Reason: MUSCLE SPASMS Docusate Sodium (Colace -) 100 mg PO DAILY [facility] Last Admin: 10/08/18 10:50 Dose: 100 mg Ferrous Sulfate (Feosol -) 325 mg PO DAILY [facility] Last Admin: 10/08/18 10:50 Dose: 325 mg Fluticasone Propionate (Flonase -) 2 spray NS BID [facility] Last Admin: 10/08/18 10:51 Dose: 2 spray Guaifenesin (Robitussin Dm -) 10 ml PO Q4H PRN PRN Reason: COUGH Loratadine (Claritin -) 10 mg PO DAILY [facility] Last Admin: 10/08/18 10:49 Dose: 10 mg Methylprednisolone Sodium Succinate (Solu-Medrol -) 40 mg IVPUSH TID [facility] Last Admin: 10/08/18 05:26 Dose: 40 mg Montelukast Sodium (Singulair -) 10 mg PO HS [facility] Last Admin: 10/07/18 21:29 Dose: 10 mg Nystatin (Nystatin Oral Suspension -) 500,000 units PO Q6HPO [facility] Last Admin: 10/08/18 05:26 Dose: 500,000 units Pantoprazole Sodium (Protonix -) 40 mg PO DAILY [facility] Last Admin: 10/08/18 10:50 Dose: 40 mg Polyethylene Glycol (Miralax (For Daily Use) -) 17 gm PO DAILY [facility] Last Admin: 10/08/18 10:51 Dose: Not Given Ranitidine HCl (Zantac -) 300 mg PO DAILY [facility] Last Admin: 10/08/18 10:49 Dose: 300 mg Senna (Senna -) 2 tab PO HS [facility] Last Admin: 10/07/18 21:28 Dose: 2 tab Sodium Chloride ([place] Nasal [place] -) 2 spray NS BID [facility] Last Admin: 10/08/18 10:51 Dose: 2 spray Gen: less tachpyneic with speaking Heart: RRR Lung: distant breath sounds, less wheezes Abd: soft, nontender Ext: no edema Laboratory Results - last 24 hr 10/08/18 10/08/18 06:30 06:30 WBC 22.8 H RBC 4.88 Hgb 11.2 Hct 37.0 MCV 75.8 L MCH 22.9 L MCHC 30.2 L RDW 19.4 H Plt Count 344 MPV 7.6 Sodium 137 Potassium 4.1 Chloride 101 Carbon Dioxide 28 Anion Gap 8 BUN 21 H Creatinine 0.7 Creat Clearance w eGFR > 60 Random Glucose 113 H Calcium 8.4 L A/P Acute COPD Exacerbation Acute Bronchitis LV Diastolic Dysfunction Hypercholesterolemia Obstructive Sleep Apnea - Wean Medrol - inhaled bronchodilators - CPAP QHS - antibiotics per ID - O2 to keep SpO2 >90% - DVT prophylaxis Dr Arana
[2018-10-08] MEDS: ATORVASTATIN CA 20 MG TABLET (FP) PO SCH (22:35)
[2018-10-08] MEDS: SENNOSIDES 8.6MG TABLET (FP) PO SCH (22:35)
[2018-10-08] MEDS: MONTELUKAST NA 10 MG TABLET PO SCH (22:35)
[2018-10-09] MEDS: NYSTATIN 500,000 UNITS/5 ML SUSPENSION PO SCH ×5 (00:22→22:29)
[2018-10-09] MEDS: ALBUTEROL SO4 2.5/IPRATROPIUM 0.5 INH SOL 3 ML VIAL.NEB. NEB SCH ×4 (07:00→20:10)
--- NOTE | 2018-10-09 09:55 | PN ---
Progress Note, Physician Chief Complaint: did not tolerate well tapering steroids, will go back to TID from BID iv; had wheezing and coughing last night - Current Medication List Current Medications: Active Medications Al Hydroxide/Mg Hydroxide (Mylanta Oral Suspension -) 30 ml PO Q6H PRN PRN Reason: INDIGESTION Last Admin: 10/03/18 23:01 Dose: 30 ml Albuterol Sulfate (Ventolin 0.083% Nebulizer Soln -) 1 amp NEB Q4H PRN PRN Reason: SHORT OF BREATH/WHEEZING Last Admin: 10/07/18 04:06 Dose: 1 amp Albuterol/Ipratropium (Duoneb -) 1 amp NEB RQID [facility] Last Admin: 10/09/18 07:00 Dose: 1 amp Atorvastatin Calcium (Lipitor -) 20 mg PO [facility] Last Admin: 10/08/18 22:35 Dose: 20 mg Budesonide/Formoterol Fumarate (Symbicort 160/4.5mcg -) 2 puff IH BID [facility] Last Admin: 10/08/18 22:35 Dose: 2 puff Bupropion HCl (Wellbutrin -) 100 mg PO DAILY [facility] Last Admin: 10/08/18 10:52 Dose: 100 mg Cyclobenzaprine HCl (Flexeril -) 10 mg PO Q8H PRN PRN Reason: MUSCLE SPASMS Docusate Sodium (Colace -) 100 mg PO DAILY [facility] Last Admin: 10/08/18 10:50 Dose: 100 mg Ferrous Sulfate (Feosol -) 325 mg PO DAILY [facility] Last Admin: 10/08/18 10:50 Dose: 325 mg Fluticasone Propionate (Flonase -) 2 spray NS BID [facility] Last Admin: 10/08/18 22:35 Dose: 2 spray Guaifenesin (Robitussin Dm -) 10 ml PO Q4H PRN PRN Reason: COUGH Loratadine (Claritin -) 10 mg PO DAILY [facility] Last Admin: 10/08/18 10:49 Dose: 10 mg Methylprednisolone Sodium Succinate (Solu-Medrol -) 40 mg IVPUSH BID [facility] Last Admin: 10/08/18 22:35 Dose: 40 mg Montelukast Sodium (Singulair -) 10 mg PO [facility] Last Admin: 10/08/18 22:35 Dose: 10 mg Nystatin (Nystatin Oral Suspension -) 500,000 units PO Q6HPO [facility] Last Admin: 10/09/18 06:11 Dose: 500,000 units Pantoprazole Sodium (Protonix -) 40 mg PO DAILY [facility] Last Admin: 10/08/18 10:50 Dose: 40 mg Polyethylene Glycol (Miralax (For Daily Use) -) 17 gm PO DAILY [facility] Last Admin: 10/08/18 10:51 Dose: Not Given Ranitidine HCl (Zantac -) 300 mg PO DAILY [facility] Last Admin: 10/08/18 10:49 Dose: 300 mg Senna (Senna -) 2 tab PO HS [facility] Last Admin: 10/08/18 22:35 Dose: 2 tab Sodium Chloride ([place] Nasal [place] -) 2 spray NS BID [facility] Last Admin: 10/08/18 22:35 Dose: 2 spray - Objective Vital Signs: Vital Signs Temperature 97.7 F 10/09/18 06:00 Pulse Rate 97 H 10/09/18 06:00 Respiratory Rate 20 10/09/18 06:00 Blood Pressure 131/77 10/09/18 06:00 O2 Sat by Pulse Oximetry (%) 98 10/08/18 20:55 Constitutional: Yes: No Distress, Calm Eyes: Yes: Conjunctiva Clear HENT: Yes: Atraumatic Neck: Yes: Supple Cardiovascular: Yes: Regular Rate and Rhythm Respiratory: Yes: Rales, Wheezes Gastrointestinal: Yes: Soft. No: Distention Genitourinary: No: CVA Tenderness - Left, CVA Tenderness - Right Musculoskeletal: No: Joint Stiffness, Joint Swelling Extremities: No: Cold, Cool, Cyanosis Edema: No Integumentary: No: Rash, Venous Stasis Changes Neurological: Yes: WNL, Alert, Oriented ...Motor Strength: WNL Psychiatric: Yes: WNL, Alert, Oriented. No: Agitated, Suicidal Ideation Assessment/Plan Acute URI with acute on chronic exacerbation of copd/bronchospasm Chronic high dose steroid use/daily zithromax for prophylaxsis Multiple co-morbid conditions HTN HLP obesity COPD / asthma O2 dependant multiple antibiotic allergies o2 supplementation NC continuous medrol/bronchodilators/singulair and antibiotics per ID and pulmonary increase steroids from bid to tid, pulmonary f/u; PPI for GERD Tx, GI f/u outpt cardiology f/u ENT f/u falls DVT gastric PFX d/w pt and staff
[2018-10-09] MEDS ORDERED: PT OWN MED DRAWER 7, Y5N ONE (10:55)
[2018-10-09] MEDS: methylPREDNISolone NA SUCC 40 MG/1 ML VIAL IVPUSH SCH ×4 (11:00→22:26)
[2018-10-09] MEDS: BUDESONIDE/FORMETEROL FUMARATE 160/4.5 mcg INHALER IH SCH ×2 (11:04→22:27)
[2018-10-09] MEDS: buPROPion HCL 100 MG TABLET PO SCH (11:04)
[2018-10-09] MEDS: FLUTICASONE PROP 0.05% 16 GM NASAL SPRAY NS SCH ×2 (11:05→22:27)
[2018-10-09] MEDS: POLYETHYLENE GLYCOL 3350 119 GM BTL PO SCH (11:05)
[2018-10-09] MEDS: RANITIDINE HCL 150 MG TABLET (FP) PO SCH (11:05)
[2018-10-09] MEDS: PANTOPRAZOLE 40 MG TABLET (FP) PO SCH (11:05)
[2018-10-09] MEDS: FERROUS SO4 325 MG TABLET (FP) PO SCH (11:05)
[2018-10-09] MEDS: LORATADINE 10 MG TABLET PO SCH (11:05)
[2018-10-09] MEDS: DOCUSATE SODIUM 100 MG CAPSULE (FP) PO SCH (11:05)
[2018-10-09] MEDS: SODIUM CHLORIDE NASAL SPRAY 44 ML BOTTLE NS SCH ×2 (11:06→22:27)
--- NOTE | 2018-10-09 11:26 | PN ---
Progress Note (short form) - Note Progress Note: Breathing feels a little worse today. More cough and wheezing. No fevers. Intake & Output 10/06/18 10/07/18 10/08/18 10/09/18 23:59 23:59 23:59 23:59 Intake Total 1300 590 920 Balance 1300 590 920 Weight 147 lb Last Vital Signs Temp Pulse Resp BP Pulse Ox 97.7 F 97 H 20 131/77 98 10/09/18 06:00 10/09/18 06:00 10/09/18 06:00 10/09/18 06:00 10/08/18 20:55 Active Medications Al Hydroxide/Mg Hydroxide (Mylanta Oral Suspension -) 30 ml PO Q6H PRN PRN Reason: INDIGESTION Last Admin: 10/03/18 23:01 Dose: 30 ml Albuterol Sulfate (Ventolin 0.083% Nebulizer Soln -) 1 amp NEB Q4H PRN PRN Reason: SHORT OF BREATH/WHEEZING Last Admin: 10/07/18 04:06 Dose: 1 amp Albuterol/Ipratropium (Duoneb -) 1 amp NEB RQID [facility] Last Admin: 10/09/18 07:00 Dose: 1 amp Alprazolam (Xanax -) 0.25 mg PO BID PRN PRN Reason: ANXIETY Atorvastatin Calcium (Lipitor -) 20 mg PO HS [facility] Last Admin: 10/08/18 22:35 Dose: 20 mg Budesonide/Formoterol Fumarate (Symbicort 160/4.5mcg -) 2 puff IH BID [facility] Last Admin: 10/09/18 11:04 Dose: 2 puff Bupropion HCl (Wellbutrin -) 100 mg PO DAILY [facility] Last Admin: 10/09/18 11:04 Dose: 100 mg Cyclobenzaprine HCl (Flexeril -) 10 mg PO Q8H PRN PRN Reason: MUSCLE SPASMS Docusate Sodium (Colace -) 100 mg PO DAILY [facility] Last Admin: 10/09/18 11:05 Dose: 100 mg Ferrous Sulfate (Feosol -) 325 mg PO DAILY [facility] Last Admin: 10/09/18 11:05 Dose: 325 mg Fluticasone Propionate (Flonase -) 2 spray NS BID [facility] Last Admin: 10/09/18 11:05 Dose: 2 spray Guaifenesin (Robitussin Dm -) 10 ml PO Q4H PRN PRN Reason: COUGH Loratadine (Claritin -) 10 mg PO DAILY [facility] Last Admin: 10/09/18 11:05 Dose: 10 mg Methylprednisolone Sodium Succinate (Solu-Medrol -) 40 mg IVPUSH TID [facility] Last Admin: 10/09/18 11:00 Dose: 40 mg Montelukast Sodium (Singulair -) 10 mg PO HS [facility] Last Admin: 10/08/18 22:35 Dose: 10 mg Nystatin (Nystatin Oral Suspension -) 500,000 units PO Q6HPO [facility] Last Admin: 10/09/18 06:11 Dose: 500,000 units Pantoprazole Sodium (Protonix -) 40 mg PO DAILY [facility] Last Admin: 10/09/18 11:05 Dose: 40 mg Polyethylene Glycol (Miralax (For Daily Use) -) 17 gm PO DAILY [facility] Last Admin: 10/09/18 11:05 Dose: Not Given Ranitidine HCl (Zantac -) 300 mg PO DAILY [facility] Last Admin: 10/09/18 11:05 Dose: 300 mg Senna (Senna -) 2 tab PO HS [facility] Last Admin: 10/08/18 22:35 Dose: 2 tab Sodium Chloride ([place] Nasal [place] -) 2 spray NS BID [facility] Last Admin: 10/09/18 11:06 Dose: 2 spray Gen: Mildly tachpyneic with speaking Heart: RRR Lung: distant breath sounds, bilateral rhonchi and wheezes Abd: soft, nontender Ext: no edema A/P Acute COPD Exacerbation Acute Bronchitis LV Diastolic Dysfunction Hypercholesterolemia Obstructive Sleep Apnea - Noted Medrol was increased - inhaled bronchodilators - CPAP QHS - antibiotics per ID - O2 to keep SpO2 >90% - DVT prophylaxis Dr Arana
[2018-10-09] MEDS: ALPRAZolam 0.25 MG TABLET PO PRN ×2 (11:53→23:04)
[2018-10-09 12:31] LABS: BLOOD UREA NITROGEN 26 mg/dL (7-18); CHLORIDE 104 mmol/L (98-107); CREATININE 0.7 mg/dL (0.55-1.3); GLUCOSE,RANDOM 152 mg/dL (74-106); POTASSIUM 4.5 mmol/L (3.5-5.1); SODIUM 140 mmol/L (136-145)
[2018-10-09 12:32] LABS: ALBUMIN 3.2 g/dl (3.4-5.0); ALK PHOS 49 U/L (45-117); ANION GAP 8 MMOL/L (8-16); BILIRUBIN,TOTAL 0.2 mg/dL (0.2-1); CALCIUM 8.3 mg/dL (8.5-10.1); CO2 29 mmol/L (21-32); SGOT/AST 15 U/L (15-37); SGPT/ALT 29 U/L (13-61); TOT PROT 6.6 g/dl (6.4-8.2)
[2018-10-09 13:25] LABS: BASO % 0.1 % (0-2.0); HEMATOCRIT 38.4 % (32.4-45.2); HEMOGLOBIN 11.7 GM/dL (10.7-15.3); LYMPH % 5.9 % (8-40); MCH 23.2 pg (25.7-33.7); MCHC 30.5 g/dl (32.0-36.0); MEAN CELL VOLUME 76.2 fl (80-96); MEAN PLT VOLUME 7.9 fl (7.5-11.1); MONO % 3.3 % (3.8-10.2); NEUT % 90.7 % (42.8-82.8); PLATELET COUNT 358 K/MM3 (134-434); RBC 5.03 M/mm3 (3.60-5.2); RDW 19.4 % (11.6-15.6); WHITE BLOOD COUNT 21.5 K/mm3 (4.0-10.0)
[2018-10-09 17:19] LABS: PLATELET ESTIMATE NORMAL
[2018-10-09] MEDS: ATORVASTATIN CA 20 MG TABLET (FP) PO SCH (22:26)
[2018-10-09] MEDS: MONTELUKAST NA 10 MG TABLET PO SCH (22:26)
[2018-10-09] MEDS: SENNOSIDES 8.6MG TABLET (FP) PO SCH (22:26)
[2018-10-10] MEDS: NYSTATIN 500,000 UNITS/5 ML SUSPENSION PO SCH ×4 (00:36→17:22)
[2018-10-10] MEDS: methylPREDNISolone NA SUCC 40 MG/1 ML VIAL IVPUSH SCH ×3 (06:17→21:44)
[2018-10-10] MEDS: ALBUTEROL SO4 2.5/IPRATROPIUM 0.5 INH SOL 3 ML VIAL.NEB. NEB SCH ×4 (07:35→20:30)
[2018-10-10 08:20] LABS: ALBUMIN 3.1 g/dl (3.4-5.0); ALK PHOS 44 U/L (45-117); ANION GAP 5 MMOL/L (8-16); BILIRUBIN,TOTAL 0.2 mg/dL (0.2-1); BLOOD UREA NITROGEN 18 mg/dL (7-18); CALCIUM 8.3 mg/dL (8.5-10.1); CHLORIDE 102 mmol/L (98-107); CO2 32 mmol/L (21-32); CREATININE 0.6 mg/dL (0.55-1.3); GLUCOSE,RANDOM 116 mg/dL (74-106); POTASSIUM 3.9 mmol/L (3.5-5.1); SGOT/AST 12 U/L (15-37); SGPT/ALT 26 U/L (13-61); SODIUM 138 mmol/L (136-145); TOT PROT 6.4 g/dl (6.4-8.2)
[2018-10-10 08:42] LABS: HEMATOCRIT 34.2 % (32.4-45.2); HEMOGLOBIN 11.5 GM/dL (10.7-15.3); LYMPH % 7.4 % (8-40); MCH 24.8 pg (25.7-33.7); MCHC 33.6 g/dl (32.0-36.0); MEAN CELL VOLUME 73.9 fl (80-96); MEAN PLT VOLUME 7.8 fl (7.5-11.1); MONO % 4.5 % (3.8-10.2); NEUT % 88.1 % (42.8-82.8); PLATELET COUNT 385 K/MM3 (134-434); RBC 4.63 M/mm3 (3.60-5.2); RDW 19.2 % (11.6-15.6); WHITE BLOOD COUNT 27.4 K/mm3 (4.0-10.0)
--- NOTE | 2018-10-10 09:53 | PN ---
Progress Note (short form) - Note Progress Note: Breathing feels a little better today. Less cough and wheezing. No fevers. Intake & Output 10/07/18 10/08/18 10/09/18 10/10/18 23:59 23:59 23:59 23:59 Intake Total 590 920 700 Balance 590 920 700 Last Vital Signs Temp Pulse Resp BP Pulse Ox 98 F 96 H 20 121/79 97 10/10/18 06:00 10/10/18 06:00 10/10/18 06:00 10/10/18 06:00 10/10/18 06:24 Active Medications Al Hydroxide/Mg Hydroxide (Mylanta Oral Suspension -) 30 ml PO Q6H PRN PRN Reason: INDIGESTION Last Admin: 10/03/18 23:01 Dose: 30 ml Albuterol Sulfate (Ventolin 0.083% Nebulizer Soln -) 1 amp NEB Q4H PRN PRN Reason: SHORT OF BREATH/WHEEZING Last Admin: 10/07/18 04:06 Dose: 1 amp Albuterol/Ipratropium (Duoneb -) 1 amp NEB RQID [facility] Last Admin: 10/10/18 07:35 Dose: 1 amp Alprazolam (Xanax -) 0.25 mg PO BID PRN PRN Reason: ANXIETY Last Admin: 10/09/18 23:04 Dose: 0.25 mg Atorvastatin Calcium (Lipitor -) 20 mg PO HS [facility] Last Admin: 10/09/18 22:26 Dose: 20 mg Budesonide/Formoterol Fumarate (Symbicort 160/4.5mcg -) 2 puff IH BID [facility] Last Admin: 10/09/18 22:27 Dose: 2 puff Bupropion HCl (Wellbutrin -) 100 mg PO DAILY [facility] Last Admin: 10/09/18 11:04 Dose: 100 mg Cyclobenzaprine HCl (Flexeril -) 10 mg PO Q8H PRN PRN Reason: MUSCLE SPASMS Docusate Sodium (Colace -) 100 mg PO DAILY [facility] Last Admin: 10/09/18 11:05 Dose: 100 mg Ferrous Sulfate (Feosol -) 325 mg PO DAILY [facility] Last Admin: 10/09/18 11:05 Dose: 325 mg Fluticasone Propionate (Flonase -) 2 spray NS BID [facility] Last Admin: 10/09/18 22:27 Dose: 2 spray Guaifenesin (Robitussin Dm -) 10 ml PO Q4H PRN PRN Reason: COUGH Loratadine (Claritin -) 10 mg PO DAILY [facility] Last Admin: 10/09/18 11:05 Dose: 10 mg Methylprednisolone Sodium Succinate (Solu-Medrol -) 40 mg IVPUSH TID [facility] Last Admin: 10/10/18 06:17 Dose: 40 mg Montelukast Sodium (Singulair -) 10 mg PO HS [facility] Last Admin: 10/09/18 22:26 Dose: 10 mg Nystatin (Nystatin Oral Suspension -) 500,000 units PO Q6HPO [facility] Last Admin: 10/10/18 06:17 Dose: Not Given Pantoprazole Sodium (Protonix -) 40 mg PO DAILY [facility] Last Admin: 10/09/18 11:05 Dose: 40 mg Polyethylene Glycol (Miralax (For Daily Use) -) 17 gm PO DAILY [facility] Last Admin: 10/09/18 11:05 Dose: Not Given Ranitidine HCl (Zantac -) 300 mg PO DAILY [facility] Last Admin: 10/09/18 11:05 Dose: 300 mg Senna (Senna -) 2 tab PO HS [facility] Last Admin: 10/09/18 22:26 Dose: 2 tab Sodium Chloride ([place] Nasal [place] -) 2 spray NS BID [facility] Last Admin: 10/09/18 22:27 Dose: 2 spray Gen: Mildly tachpyneic with speaking Heart: RRR Lung: distant breath sounds, bilateral rhonchi and wheezes Abd: soft, nontender Ext: no edema Laboratory Results - last 24 hr 10/09/18 10/09/18 10/10/18 06:00 06:00 06:48 WBC 21.5 H 27.4 H RBC 5.03 4.63 Hgb 11.7 11.5 Hct 38.4 34.2 MCV 76.2 L 73.9 L MCH 23.2 L 24.8 L MCHC 30.5 L 33.6 RDW 19.4 H 19.2 H Plt Count 358 385 MPV 7.9 7.8 Absolute Neuts (auto) 19.5 H 24.1 H Neutrophils % 90.7 H 88.1 H Neutrophils % (Manual) 89.6 H Band Neutrophils % 0.0 Lymphocytes % 5.9 L D 7.4 L D Lymphocytes % (Manual) 5.2 L D Monocytes % 3.3 L 4.5 Monocytes % (Manual) 5 D Eosinophils % 0.0 D 0.0 Eosinophils % (Manual) 0.0 Basophils % 0.1 0.0 Basophils % (Manual) 0.0 Myelocytes % (Man) 0 D Promyelocytes % (Man) 0 Blast Cells % (Manual) 0 Nucleated RBC % 0 0 Metamyelocytes 0 Platelet Estimate Normal Sodium 140 Potassium 4.5 Chloride 104 Carbon Dioxide 29 Anion Gap 8 BUN 26 H Creatinine 0.7 Creat Clearance w eGFR > 60 Random Glucose 152 H Calcium 8.3 L Total Bilirubin 0.2 AST 15 ALT 29 Alkaline Phosphatase 49 Total Protein 6.6 Albumin 3.2 L 10/10/18 06:48 WBC RBC Hgb Hct MCV MCH MCHC RDW Plt Count MPV Absolute Neuts (auto) Neutrophils % Neutrophils % (Manual) Band Neutrophils % Lymphocytes % Lymphocytes % (Manual) Monocytes % Monocytes % (Manual) Eosinophils % Eosinophils % (Manual) Basophils % Basophils % (Manual) Myelocytes % (Man) Promyelocytes % (Man) Blast Cells % (Manual) Nucleated RBC % Metamyelocytes Platelet Estimate Sodium 138 Potassium 3.9 Chloride 102 Carbon Dioxide 32 Anion Gap 5 L BUN 18 Creatinine 0.6 Creat Clearance w eGFR > 60 Random Glucose 116 H Calcium 8.3 L Total Bilirubin 0.2 AST 12 L ALT 26 Alkaline Phosphatase 44 L Total Protein 6.4 Albumin 3.1 L A/P Acute COPD Exacerbation Acute Bronchitis LV Diastolic Dysfunction Hypercholesterolemia Obstructive Sleep Apnea Overlap Syndrome - Medrol taper - inhaled bronchodilators - CPAP QHS - antibiotics per ID - O2 to keep SpO2 >90% - DVT prophylaxis - Due to to the diagnosis of Advanced COPD, the patient requires a lightweight portable Oxygen system. Dr Arana
[2018-10-10] MEDS: DOCUSATE SODIUM 100 MG CAPSULE (FP) PO SCH (10:40)
[2018-10-10] MEDS: RANITIDINE HCL 150 MG TABLET (FP) PO SCH (10:40)
[2018-10-10] MEDS: LORATADINE 10 MG TABLET PO SCH (10:40)
[2018-10-10] MEDS: FERROUS SO4 325 MG TABLET (FP) PO SCH (10:40)
[2018-10-10] MEDS: PANTOPRAZOLE 40 MG TABLET (FP) PO SCH (10:40)
[2018-10-10] MEDS: FLUTICASONE PROP 0.05% 16 GM NASAL SPRAY NS SCH ×2 (10:41→21:44)
[2018-10-10] MEDS: BUDESONIDE/FORMETEROL FUMARATE 160/4.5 mcg INHALER IH SCH ×2 (10:41→21:44)
[2018-10-10] MEDS: SODIUM CHLORIDE NASAL SPRAY 44 ML BOTTLE NS SCH ×2 (10:42→21:43)
[2018-10-10] MEDS: POLYETHYLENE GLYCOL 3350 119 GM BTL PO SCH (10:43)
[2018-10-10] MEDS: buPROPion HCL 100 MG TABLET PO SCH (11:34)
[2018-10-10 12:44] LABS: ANISOCYTOSIS 1+; MACROCYTOSIS 0; PLATELET ESTIMATE NORMAL
--- NOTE | 2018-10-10 13:02 | PN ---
Progress Note, Physician Chief Complaint: was SOB on iv steroids BID, increased back to TID< feels better now but feels anxious, asked for prn xanax; d/w pt possible risks and SE and falls PFX further management per pulm - Current Medication List Current Medications: Active Medications Al Hydroxide/Mg Hydroxide (Mylanta Oral Suspension -) 30 ml PO Q6H PRN PRN Reason: INDIGESTION Last Admin: 10/03/18 23:01 Dose: 30 ml Albuterol Sulfate (Ventolin 0.083% Nebulizer Soln -) 1 amp NEB Q4H PRN PRN Reason: SHORT OF BREATH/WHEEZING Last Admin: 10/07/18 04:06 Dose: 1 amp Albuterol/Ipratropium (Duoneb -) 1 amp NEB RQID [facility] Last Admin: 10/10/18 11:25 Dose: 1 amp Alprazolam (Xanax -) 0.25 mg PO BID PRN PRN Reason: ANXIETY Last Admin: 10/09/18 23:04 Dose: 0.25 mg Atorvastatin Calcium (Lipitor -) 20 mg PO HS [facility] Last Admin: 10/09/18 22:26 Dose: 20 mg Budesonide/Formoterol Fumarate (Symbicort 160/4.5mcg -) 2 puff IH BID [facility] Last Admin: 10/10/18 10:41 Dose: 2 puff Bupropion HCl (Wellbutrin -) 100 mg PO DAILY [facility] Last Admin: 10/10/18 11:34 Dose: 100 mg Cyclobenzaprine HCl (Flexeril -) 10 mg PO Q8H PRN PRN Reason: MUSCLE SPASMS Docusate Sodium (Colace -) 100 mg PO DAILY [facility] Last Admin: 10/10/18 10:40 Dose: 100 mg Ferrous Sulfate (Feosol -) 325 mg PO DAILY [facility] Last Admin: 10/10/18 10:40 Dose: 325 mg Fluticasone Propionate (Flonase -) 2 spray NS BID [facility] Last Admin: 10/10/18 10:41 Dose: 2 spray Guaifenesin (Robitussin Dm -) 10 ml PO Q4H PRN PRN Reason: COUGH Loratadine (Claritin -) 10 mg PO DAILY [facility] Last Admin: 10/10/18 10:40 Dose: 10 mg Methylprednisolone Sodium Succinate (Solu-Medrol -) 30 mg IVPUSH TID [facility] Montelukast Sodium (Singulair -) 10 mg PO HS [facility] Last Admin: 10/09/18 22:26 Dose: 10 mg Nystatin (Nystatin Oral Suspension -) 500,000 units PO Q6HPO [facility] Last Admin: 10/10/18 12:25 Dose: 500,000 units Pantoprazole Sodium (Protonix -) 40 mg PO DAILY [facility] Last Admin: 10/10/18 10:40 Dose: 40 mg Polyethylene Glycol (Miralax (For Daily Use) -) 17 gm PO DAILY [facility] Last Admin: 10/10/18 10:43 Dose: Not Given Ranitidine HCl (Zantac -) 300 mg PO DAILY [facility] Last Admin: 10/10/18 10:40 Dose: 300 mg Senna (Senna -) 2 tab PO [facility] Last Admin: 10/09/18 22:26 Dose: 2 tab Sodium Chloride ([place] Nasal [place] -) 2 spray NS BID [facility] Last Admin: 10/10/18 10:42 Dose: 2 spray - Objective Vital Signs: Vital Signs Temperature 98 F 10/10/18 06:00 Pulse Rate 96 H 10/10/18 06:00 Respiratory Rate 20 10/10/18 06:00 Blood Pressure 121/79 10/10/18 06:00 O2 Sat by Pulse Oximetry (%) 97 10/10/18 06:24 Constitutional: Yes: No Distress, Calm Eyes: Yes: Conjunctiva Clear HENT: Yes: Atraumatic Neck: Yes: Supple Cardiovascular: Yes: Regular Rate and Rhythm Respiratory: Yes: Wheezes Gastrointestinal: Yes: Soft. No: Distention Genitourinary: No: CVA Tenderness - Left, CVA Tenderness - Right Musculoskeletal: No: Joint Stiffness, Joint Swelling Extremities: No: Cold, Cool, Cyanosis Edema: No Integumentary: No: Rash, Venous Stasis Changes Neurological: Yes: WNL, Alert, Oriented ...Motor Strength: WNL Psychiatric: Yes: WNL, Alert, Oriented. No: Agitated, Suicidal Ideation Labs: CBC, BMP 10/10/18 06:48 10/10/18 06:48 - ....Imaging Other: Report Reviewed Assessment/Plan Acute URI with acute on chronic exacerbation of copd/bronchospasm Chronic high dose steroid use/daily zithromax for prophylaxsis Multiple co-morbid conditions HTN HLP obesity COPD / asthma O2 dependant multiple antibiotic allergies o2 supplementation NC continuous medrol/bronchodilators/singulair pulmonary increase steroids from bid to tid, pulmonary f/u; PPI for GERD Tx, GI f/u outpt cardiology f/u ENT f/u falls DVT gastric PFX d/w pt and staff
--- NOTE | 2018-10-10 13:34 | PN ---
Progress Note, Physician History of Present Illness: The patient is a 63 year old white female, with a significant PMH of asthma, COPD, hyperlipidemia, hypertension, CHF (diastolic dysfunction), MGUS, peripheral neuropathy, GERD, hypothyroidism, who presents to the emergency department with asthma exacerbation beginning just prior to arrival. The patient states she received Decadron from EMS prior to arrival in the ED. The patient states she has not been feeling well for 2 days and endorses a productive cough with yellow sputum. The patient states she is on prednisone 80 mg for [address] James and a low dose of azithromycin. The patient denies any recent sick contacts or travel. The patient states she did receive a flu shot earlier this year. - Current Medication List Current Medications: Active Medications Al Hydroxide/Mg Hydroxide (Mylanta Oral Suspension -) 30 ml PO Q6H PRN PRN Reason: INDIGESTION Last Admin: 10/03/18 23:01 Dose: 30 ml Albuterol Sulfate (Ventolin 0.083% Nebulizer Soln -) 1 amp NEB Q4H PRN PRN Reason: SHORT OF BREATH/WHEEZING Last Admin: 10/07/18 04:06 Dose: 1 amp Albuterol/Ipratropium (Duoneb -) 1 amp NEB RQID [facility] Last Admin: 10/10/18 11:25 Dose: 1 amp Alprazolam (Xanax -) 0.25 mg PO BID PRN PRN Reason: ANXIETY Last Admin: 10/09/18 23:04 Dose: 0.25 mg Atorvastatin Calcium (Lipitor -) 20 mg PO HS [facility] Last Admin: 10/09/18 22:26 Dose: 20 mg Budesonide/Formoterol Fumarate (Symbicort 160/4.5mcg -) 2 puff IH BID [facility] Last Admin: 10/10/18 10:41 Dose: 2 puff Bupropion HCl (Wellbutrin -) 100 mg PO DAILY [facility] Last Admin: 10/10/18 11:34 Dose: 100 mg Cyclobenzaprine HCl (Flexeril -) 10 mg PO Q8H PRN PRN Reason: MUSCLE SPASMS Docusate Sodium (Colace -) 100 mg PO DAILY [facility] Last Admin: 10/10/18 10:40 Dose: 100 mg Ferrous Sulfate (Feosol -) 325 mg PO DAILY [facility] Last Admin: 10/10/18 10:40 Dose: 325 mg Fluticasone Propionate (Flonase -) 2 spray NS BID [facility] Last Admin: 10/10/18 10:41 Dose: 2 spray Guaifenesin (Robitussin Dm -) 10 ml PO Q4H PRN PRN Reason: COUGH Loratadine (Claritin -) 10 mg PO DAILY [facility] Last Admin: 10/10/18 10:40 Dose: 10 mg Methylprednisolone Sodium Succinate (Solu-Medrol -) 30 mg IVPUSH TID [facility] Last Admin: 10/10/18 13:25 Dose: 30 mg Montelukast Sodium (Singulair -) 10 mg PO HS [facility] Last Admin: 10/09/18 22:26 Dose: 10 mg Nystatin (Nystatin Oral Suspension -) 500,000 units PO Q6HPO [facility] Last Admin: 10/10/18 12:25 Dose: 500,000 units Pantoprazole Sodium (Protonix -) 40 mg PO DAILY [facility] Last Admin: 10/10/18 10:40 Dose: 40 mg Polyethylene Glycol (Miralax (For Daily Use) -) 17 gm PO DAILY [facility] Last Admin: 10/10/18 10:43 Dose: Not Given Ranitidine HCl (Zantac -) 300 mg PO DAILY [facility] Last Admin: 10/10/18 10:40 Dose: 300 mg Senna (Senna -) 2 tab PO [facility] Last Admin: 10/09/18 22:26 Dose: 2 tab Sodium Chloride ([place] Nasal [place] -) 2 spray NS BID [facility] Last Admin: 10/10/18 10:42 Dose: 2 spray - Objective Vital Signs: Vital Signs Temperature 98 F 10/10/18 06:00 Pulse Rate 96 H 10/10/18 06:00 Respiratory Rate 20 10/10/18 06:00 Blood Pressure 121/79 10/10/18 06:00 O2 Sat by Pulse Oximetry (%) 97 10/10/18 06:24 Eyes: Yes: WNL, Conjunctiva Clear, EOM Intact HENT: Yes: WNL, Atraumatic, Normocephalic Neck: Yes: WNL, Supple, Trachea Midline Cardiovascular: Yes: WNL, Regular Rate and Rhythm Respiratory: Yes: WNL, Regular, Wheezes Gastrointestinal: Yes: WNL, Normal Bowel Sounds Genitourinary: Yes: WNL Musculoskeletal: Yes: WNL Extremities: Yes: WNL Edema: No Integumentary: Yes: WNL Neurological: Yes: WNL, Alert, Oriented ...Motor Strength: WNL Psychiatric: Yes: WNL Labs: CBC, BMP 10/10/18 06:48 10/10/18 06:48 Assessment/Plan - Problems (1) Diastolic CHF Assessment/Plan: ECHO 10/06/2017:normal LVEF; aneuysmal atrial septum. ECHO 10/2017: normal LVEF; small pericardial effusion. Continues with episodes of dyspnea with minimal exertion. Very limited exercise; pt says she gets tired and dyspneic easily. BUN/Cr, electrolytes, Is and Os, daily weight. TSH WNL. Code(s): I50.30 - UNSPECIFIED DIASTOLIC (CONGESTIVE) HEART FAILURE (2) Acute bronchitis Code(s): J20.9 - ACUTE BRONCHITIS, UNSPECIFIED (3) Diabetes mellitus Code(s): E11.9 - TYPE 2 DIABETES MELLITUS WITHOUT COMPLICATIONS (4) HLD (hyperlipidemia) Code(s): E78.5 - HYPERLIPIDEMIA, UNSPECIFIED (5) Hypertension Code(s): I10 - ESSENTIAL (PRIMARY) HYPERTENSION (6) Acute exacerbation of COPD with asthma Code(s): J44.1 - CHRONIC OBSTRUCTIVE PULMONARY DISEASE W (ACUTE) EXACERBATION; J45.901 - UNSPECIFIED ASTHMA WITH (ACUTE) EXACERBATION (7) MGUS (monoclonal gammopathy of unknown significance) Code(s): D47.2 - MONOCLONAL GAMMOPATHY (8) [place] cardiac risk >20% in next 10 years Code(s): Z91.89 - OTH PERSONAL RISK FACTORS, NOT ELSEWHERE CLASSIFIED (9) Asthma Code(s): J45.909 - UNSPECIFIED ASTHMA, UNCOMPLICATED Qualifiers: Asthma severity: moderate Asthma persistence: persistent Asthma complication type: with acute exacerbation Qualified Code(s): J45.41 - Moderate persistent asthma with (acute) exacerbation (10) Anxiety Code(s): F41.9 - ANXIETY DISORDER, UNSPECIFIED
--- NOTE | 2018-10-10 13:35 | PN ---
Progress Note, Physician History of Present Illness: The patient is a 63 year old white female, with a significant PMH of asthma, COPD, hyperlipidemia, hypertension, CHF (diastolic dysfunction), MGUS, peripheral neuropathy, GERD, hypothyroidism, who presents to the emergency department with asthma exacerbation beginning just prior to arrival. The patient states she received Decadron from EMS prior to arrival in the ED. The patient states she has not been feeling well for 2 days and endorses a productive cough with yellow sputum. The patient states she is on prednisone 80 mg for [address] James and a low dose of azithromycin. The patient denies any recent sick contacts or travel. The patient states she did receive a flu shot earlier this year. - Current Medication List Current Medications: Active Medications Al Hydroxide/Mg Hydroxide (Mylanta Oral Suspension -) 30 ml PO Q6H PRN PRN Reason: INDIGESTION Last Admin: 10/03/18 23:01 Dose: 30 ml Albuterol Sulfate (Ventolin 0.083% Nebulizer Soln -) 1 amp NEB Q4H PRN PRN Reason: SHORT OF BREATH/WHEEZING Last Admin: 10/07/18 04:06 Dose: 1 amp Albuterol/Ipratropium (Duoneb -) 1 amp NEB RQID [facility] Last Admin: 10/10/18 11:25 Dose: 1 amp Alprazolam (Xanax -) 0.25 mg PO BID PRN PRN Reason: ANXIETY Last Admin: 10/09/18 23:04 Dose: 0.25 mg Atorvastatin Calcium (Lipitor -) 20 mg PO HS [facility] Last Admin: 10/09/18 22:26 Dose: 20 mg Budesonide/Formoterol Fumarate (Symbicort 160/4.5mcg -) 2 puff IH BID [facility] Last Admin: 10/10/18 10:41 Dose: 2 puff Bupropion HCl (Wellbutrin -) 100 mg PO DAILY [facility] Last Admin: 10/10/18 11:34 Dose: 100 mg Cyclobenzaprine HCl (Flexeril -) 10 mg PO Q8H PRN PRN Reason: MUSCLE SPASMS Docusate Sodium (Colace -) 100 mg PO DAILY [facility] Last Admin: 10/10/18 10:40 Dose: 100 mg Ferrous Sulfate (Feosol -) 325 mg PO DAILY [facility] Last Admin: 10/10/18 10:40 Dose: 325 mg Fluticasone Propionate (Flonase -) 2 spray NS BID [facility] Last Admin: 10/10/18 10:41 Dose: 2 spray Guaifenesin (Robitussin Dm -) 10 ml PO Q4H PRN PRN Reason: COUGH Loratadine (Claritin -) 10 mg PO DAILY [facility] Last Admin: 10/10/18 10:40 Dose: 10 mg Methylprednisolone Sodium Succinate (Solu-Medrol -) 30 mg IVPUSH TID [facility] Last Admin: 10/10/18 13:25 Dose: 30 mg Montelukast Sodium (Singulair -) 10 mg PO HS [facility] Last Admin: 10/09/18 22:26 Dose: 10 mg Nystatin (Nystatin Oral Suspension -) 500,000 units PO Q6HPO [facility] Last Admin: 10/10/18 12:25 Dose: 500,000 units Pantoprazole Sodium (Protonix -) 40 mg PO DAILY [facility] Last Admin: 10/10/18 10:40 Dose: 40 mg Polyethylene Glycol (Miralax (For Daily Use) -) 17 gm PO DAILY [facility] Last Admin: 10/10/18 10:43 Dose: Not Given Ranitidine HCl (Zantac -) 300 mg PO DAILY [facility] Last Admin: 10/10/18 10:40 Dose: 300 mg Senna (Senna -) 2 tab PO [facility] Last Admin: 10/09/18 22:26 Dose: 2 tab Sodium Chloride ([place] Nasal [place] -) 2 spray NS BID [facility] Last Admin: 10/10/18 10:42 Dose: 2 spray - Objective Vital Signs: Vital Signs Temperature 98 F 10/10/18 06:00 Pulse Rate 96 H 10/10/18 06:00 Respiratory Rate 20 10/10/18 06:00 Blood Pressure 121/79 10/10/18 06:00 O2 Sat by Pulse Oximetry (%) 97 10/10/18 06:24 Labs: CBC, BMP 10/10/18 06:48 10/10/18 06:48
[2018-10-10] MEDS: SENNOSIDES 8.6MG TABLET (FP) PO SCH (21:41)
[2018-10-10] MEDS: ALPRAZolam 0.25 MG TABLET PO PRN (21:41)
[2018-10-10] MEDS: ATORVASTATIN CA 20 MG TABLET (FP) PO SCH (21:41)
[2018-10-10] MEDS: MONTELUKAST NA 10 MG TABLET PO SCH (21:41)
[2018-10-10] MEDS: ALBUTEROL SO4 0.083% IH SOL 2.5 MG/3 ML VIAL.NEB. NEB PRN (23:00)
[2018-10-11] MEDS: NYSTATIN 500,000 UNITS/5 ML SUSPENSION PO SCH ×5 (00:41→23:18)
--- NOTE | 2018-10-11 06:20 | PN ---
Progress Note, Physician Chief Complaint: feeling a little better, less wheezing less SOB - Current Medication List Current Medications: Active Medications Al Hydroxide/Mg Hydroxide (Mylanta Oral Suspension -) 30 ml PO Q6H PRN PRN Reason: INDIGESTION Last Admin: 10/03/18 23:01 Dose: 30 ml Albuterol Sulfate (Ventolin 0.083% Nebulizer Soln -) 1 amp NEB Q4H PRN PRN Reason: SHORT OF BREATH/WHEEZING Last Admin: 10/10/18 23:00 Dose: 1 amp Albuterol/Ipratropium (Duoneb -) 1 amp NEB RQID [facility] Last Admin: 10/10/18 20:30 Dose: 1 amp Alprazolam (Xanax -) 0.25 mg PO BID PRN PRN Reason: ANXIETY Last Admin: 10/10/18 21:41 Dose: 0.25 mg Atorvastatin Calcium (Lipitor -) 20 mg PO [facility] Last Admin: 10/10/18 21:41 Dose: 20 mg Budesonide/Formoterol Fumarate (Symbicort 160/4.5mcg -) 2 puff IH BID [facility] Last Admin: 10/10/18 21:44 Dose: 2 puff Bupropion HCl (Wellbutrin -) 100 mg PO DAILY [facility] Last Admin: 10/10/18 11:34 Dose: 100 mg Cyclobenzaprine HCl (Flexeril -) 10 mg PO Q8H PRN PRN Reason: MUSCLE SPASMS Docusate Sodium (Colace -) 100 mg PO DAILY [facility] Last Admin: 10/10/18 10:40 Dose: 100 mg Ferrous Sulfate (Feosol -) 325 mg PO DAILY [facility] Last Admin: 10/10/18 10:40 Dose: 325 mg Fluticasone Propionate (Flonase -) 2 spray NS BID [facility] Last Admin: 10/10/18 21:44 Dose: 2 spray Guaifenesin (Robitussin Dm -) 10 ml PO Q4H PRN PRN Reason: COUGH Loratadine (Claritin -) 10 mg PO DAILY [facility] Last Admin: 10/10/18 10:40 Dose: 10 mg Methylprednisolone Sodium Succinate (Solu-Medrol -) 30 mg IVPUSH TID [facility] Last Admin: 10/10/18 21:44 Dose: 30 mg Montelukast Sodium (Singulair -) 10 mg PO [facility] Last Admin: 10/10/18 21:41 Dose: 10 mg Nystatin (Nystatin Oral Suspension -) 500,000 units PO Q6HPO [facility] Last Admin: 10/11/18 00:41 Dose: Not Given Pantoprazole Sodium (Protonix -) 40 mg PO DAILY [facility] Last Admin: 10/10/18 10:40 Dose: 40 mg Polyethylene Glycol (Miralax (For Daily Use) -) 17 gm PO DAILY [facility] Last Admin: 10/10/18 10:43 Dose: Not Given Ranitidine HCl (Zantac -) 300 mg PO DAILY [facility] Last Admin: 10/10/18 10:40 Dose: 300 mg Senna (Senna -) 2 tab PO HS [facility] Last Admin: 10/10/18 21:41 Dose: 2 tab Sodium Chloride ([place] Nasal [place] -) 2 spray NS BID [facility] Last Admin: 10/10/18 21:43 Dose: 2 spray - Objective Vital Signs: Vital Signs Temperature 97.6 F 10/10/18 18:00 Pulse Rate 101 H 10/10/18 18:00 Respiratory Rate 18 10/10/18 18:00 Blood Pressure 136/85 10/10/18 18:00 O2 Sat by Pulse Oximetry (%) 98 10/10/18 21:00 Constitutional: Yes: No Distress, Calm Eyes: Yes: Conjunctiva Clear HENT: Yes: Atraumatic Neck: Yes: Supple Cardiovascular: Yes: Regular Rate and Rhythm Respiratory: Yes: Rales Gastrointestinal: Yes: Soft. No: Distention Genitourinary: No: CVA Tenderness - Left, CVA Tenderness - Right, Oliguria Musculoskeletal: No: Joint Stiffness, Joint Swelling Extremities: No: Cold, Cool, Cyanosis Edema: No Integumentary: No: Rash, Venous Stasis Changes Neurological: Yes: WNL, Alert, Oriented ...Motor Strength: WNL Psychiatric: Yes: WNL, Alert, Oriented. No: Agitated, Suicidal Ideation Labs: CBC, BMP 10/10/18 06:48 10/10/18 06:48 - ....Imaging Other: Report Reviewed Assessment/Plan Acute URI with acute on chronic exacerbation of copd/bronchospasm Chronic high dose steroid use/daily zithromax for prophylaxsis Multiple co-morbid conditions HTN HLP obesity COPD / asthma O2 dependant multiple antibiotic allergies o2 supplementation NC continuous medrol/bronchodilators/singulair pulmonary taper steroids as tolerated, pulmonary f/u; PPI for GERD Tx, GI f/u outpt cardiology f/u ENT f/u falls DVT gastric PFX d/w pt and staff, d/w pulm dr Arana
[2018-10-11] MEDS: methylPREDNISolone NA SUCC 40 MG/1 ML VIAL IVPUSH SCH ×3 (06:28→21:36)
[2018-10-11 07:22] LABS: BASO % 0.1 % (0-2.0); EOS % 0.1 % (0-4.5); HEMOGLOBIN 11.1 GM/dL (10.7-15.3); LYMPH % 7.3 % (8-40); MCH 23.1 pg (25.7-33.7); MCHC 30.8 g/dl (32.0-36.0); MEAN CELL VOLUME 75.1 fl (80-96); MEAN PLT VOLUME 7.5 fl (7.5-11.1); NEUT % 87.5 % (42.8-82.8); PLATELET COUNT 361 K/MM3 (134-434); RDW 19.5 % (11.6-15.6); WHITE BLOOD COUNT 26.9 K/mm3 (4.0-10.0)
[2018-10-11] MEDS: ALBUTEROL SO4 2.5/IPRATROPIUM 0.5 INH SOL 3 ML VIAL.NEB. NEB SCH ×4 (07:35→20:22)
[2018-10-11 07:54] LABS: ALK PHOS 45 U/L (45-117); ANION GAP 6 MMOL/L (8-16); BILIRUBIN,TOTAL 0.2 mg/dL (0.2-1); BLOOD UREA NITROGEN 22 mg/dL (7-18); CALCIUM 8.3 mg/dL (8.5-10.1); CHLORIDE 104 mmol/L (98-107); CO2 30 mmol/L (21-32); CREATININE 0.6 mg/dL (0.55-1.3); GLUCOSE,RANDOM 139 mg/dL (74-106); POTASSIUM 3.9 mmol/L (3.5-5.1); SGOT/AST 12 U/L (15-37); SGPT/ALT 28 U/L (13-61); SODIUM 139 mmol/L (136-145); TOT PROT 6.2 g/dl (6.4-8.2)
[2018-10-11] MEDS: RANITIDINE HCL 150 MG TABLET (FP) PO SCH (09:23)
[2018-10-11] MEDS: PANTOPRAZOLE 40 MG TABLET (FP) PO SCH (09:23)
[2018-10-11] MEDS: BUDESONIDE/FORMETEROL FUMARATE 160/4.5 mcg INHALER IH SCH ×2 (09:24→21:38)
[2018-10-11] MEDS: DOCUSATE SODIUM 100 MG CAPSULE (FP) PO SCH (09:24)
[2018-10-11] MEDS: FLUTICASONE PROP 0.05% 16 GM NASAL SPRAY NS SCH ×2 (09:24→21:38)
[2018-10-11] MEDS: FERROUS SO4 325 MG TABLET (FP) PO SCH (09:24)
[2018-10-11] MEDS: SODIUM CHLORIDE NASAL SPRAY 44 ML BOTTLE NS SCH ×2 (09:24→21:38)
[2018-10-11] MEDS: LORATADINE 10 MG TABLET PO SCH (09:24)
[2018-10-11] MEDS: POLYETHYLENE GLYCOL 3350 119 GM BTL PO SCH (09:25)
[2018-10-11] MEDS: buPROPion HCL 100 MG TABLET PO SCH (09:25)
[2018-10-11 11:01] LABS: TARGET CELLS 1+
--- NOTE | 2018-10-11 14:09 | PN ---
Progress Note, Physician Chief Complaint: Pt sitting up at bedside; feels better (less dyspneic), but "emotional from the steroids", and is sad she has to spend so much time in the hospital and is "not getting well". USing CPAP for sleep apnea: likes the mask much better than nasal , and hopes she can get the mask for home use. History of Present Illness: The patient is a 63 year old white female, with a significant PMH of asthma, COPD, hyperlipidemia, hypertension, CHF (diastolic dysfunction), MGUS, peripheral neuropathy, GERD, hypothyroidism, who presents to the emergency department with asthma exacerbation beginning just prior to arrival. The patient states she received Decadron from EMS prior to arrival in the ED. The patient states she has not been feeling well for 2 days and endorses a productive cough with yellow sputum. The patient states she is on prednisone 80 mg for [address] James and a low dose of azithromycin. The patient denies any recent sick contacts or travel. The patient states she did receive a flu shot earlier this year. - Current Medication List Current Medications: Active Medications Al Hydroxide/Mg Hydroxide (Mylanta Oral Suspension -) 30 ml PO Q6H PRN PRN Reason: INDIGESTION Last Admin: 10/03/18 23:01 Dose: 30 ml Albuterol Sulfate (Ventolin 0.083% Nebulizer Soln -) 1 amp NEB Q4H PRN PRN Reason: SHORT OF BREATH/WHEEZING Last Admin: 10/10/18 23:00 Dose: 1 amp Albuterol/Ipratropium (Duoneb -) 1 amp NEB RQID [facility] Last Admin: 10/11/18 11:40 Dose: 1 amp Alprazolam (Xanax -) 0.25 mg PO BID PRN PRN Reason: ANXIETY Last Admin: 10/10/18 21:41 Dose: 0.25 mg Atorvastatin Calcium (Lipitor -) 20 mg PO HS [facility] Last Admin: 10/10/18 21:41 Dose: 20 mg Budesonide/Formoterol Fumarate (Symbicort 160/4.5mcg -) 2 puff IH BID [facility] Last Admin: 10/11/18 09:24 Dose: 2 puff Bupropion HCl (Wellbutrin -) 100 mg PO DAILY [facility] Last Admin: 10/11/18 09:25 Dose: 100 mg Cyclobenzaprine HCl (Flexeril -) 10 mg PO Q8H PRN PRN Reason: MUSCLE SPASMS Docusate Sodium (Colace -) 100 mg PO DAILY [facility] Last Admin: 10/11/18 09:24 Dose: 100 mg Ferrous Sulfate (Feosol -) 325 mg PO DAILY [facility] Last Admin: 10/11/18 09:24 Dose: 325 mg Fluticasone Propionate (Flonase -) 2 spray NS BID [facility] Last Admin: 10/11/18 09:24 Dose: 2 spray Guaifenesin (Robitussin Dm -) 10 ml PO Q4H PRN PRN Reason: COUGH Loratadine (Claritin -) 10 mg PO DAILY [facility] Last Admin: 10/11/18 09:24 Dose: 10 mg Methylprednisolone Sodium Succinate (Solu-Medrol -) 30 mg IVPUSH Q12H [facility] Last Admin: 10/11/18 10:48 Dose: 30 mg Montelukast Sodium (Singulair -) 10 mg PO [facility] Last Admin: 10/10/18 21:41 Dose: 10 mg Nystatin (Nystatin Oral Suspension -) 500,000 units PO Q6HPO [facility] Last Admin: 10/11/18 12:08 Dose: 500,000 units Pantoprazole Sodium (Protonix -) 40 mg PO DAILY [facility] Last Admin: 10/11/18 09:23 Dose: 40 mg Polyethylene Glycol (Miralax (For Daily Use) -) 17 gm PO DAILY [facility] Last Admin: 10/11/18 09:25 Dose: Not Given Ranitidine HCl (Zantac -) 300 mg PO DAILY [facility] Last Admin: 10/11/18 09:23 Dose: 300 mg Senna (Senna -) 2 tab PO [facility] Last Admin: 10/10/18 21:41 Dose: 2 tab Sodium Chloride ([place] Nasal [place] -) 2 spray NS BID [facility] Last Admin: 10/11/18 09:24 Dose: 2 spray - Objective Vital Signs: Vital Signs Temperature 98 F 10/11/18 06:00 Pulse Rate 100 H 10/11/18 06:00 Respiratory Rate 20 10/11/18 06:00 Blood Pressure 140/93 10/11/18 06:00 O2 Sat by Pulse Oximetry (%) 94 L 10/11/18 11:50 Constitutional: Yes: Mild Distress Eyes: Yes: WNL HENT: Yes: WNL Neck: Yes: WNL Cardiovascular: Yes: Regular Rate and Rhythm Respiratory: Yes: Diminished, SOB on Exertion Gastrointestinal: Yes: Soft ...Rectal Exam: Yes: Deferred Genitourinary: No: Anuria Edema: No Peripheral Pulses WNL: Yes Integumentary: Yes: Bruising Neurological: Yes: Alert, Oriented, Weakness Psychiatric: Yes: Alert, Oriented Labs: CBC, BMP 10/11/18 06:45 10/11/18 06:45 Abnormal Lab Results 10/12/18 10/12/18 07:00 07:00 WBC 27.0 H MCV 74.6 L MCH 24.9 L RDW 19.6 H Absolute Neuts (auto) 23.5 H Neutrophils % 87.1 H Lymphocytes % 7.8 L BUN 19 H Problem List - Problems (1) Diastolic CHF Assessment/Plan: ECHO 10/06/2018:normal LVEF; aneuysmal atrial septum. ECHO 10/2017: normal LVEF; small pericardial effusion. Continues with episodes of dyspnea with minimal exertion. Very limited exercise; pt says she gets tired and dyspneic easily. BUN/Cr, electrolytes, Is and Os, daily weight. TSH WNL. Bronchodilators/steroids/O2 per piping design specialist. Diet modification, portion control as aids for weight loss. Code(s): I50.30 - UNSPECIFIED DIASTOLIC (CONGESTIVE) HEART FAILURE (2) Acute bronchitis Assessment/Plan: f/u bronchodilators, steroids, antibiotics with piping design specialist. Code(s): J20.9 - ACUTE BRONCHITIS, UNSPECIFIED (3) Diabetes mellitus Code(s): E11.9 - TYPE 2 DIABETES MELLITUS WITHOUT COMPLICATIONS (4) HLD (hyperlipidemia) Assessment/Plan: f/u lipid profile. On atorvastatin. The importance of heart-healthy diet, portion control, and weight loss was discussed in detail. Code(s): E78.5 - HYPERLIPIDEMIA, UNSPECIFIED (5) Hypertension Code(s): I10 - ESSENTIAL (PRIMARY) HYPERTENSION (6) Acute exacerbation of COPD with asthma Code(s): J44.1 - CHRONIC OBSTRUCTIVE PULMONARY DISEASE W (ACUTE) EXACERBATION; J45.901 - UNSPECIFIED ASTHMA WITH (ACUTE) EXACERBATION (7) MGUS (monoclonal gammopathy of unknown significance) Assessment/Plan: f/u with heme/onc Code(s): D47.2 - MONOCLONAL GAMMOPATHY (8) [place] cardiac risk >20% in next 10 years Assessment/Plan: Stress dobutamine mibi 10/2017: no ischemia, but suboptimal HR reached. Pt c/o increasing episodes of dyspnea she thinks are not related to asthma. Episode of "bad heartburn" at rest yesterday, lasting about an hour, with some response to Prilosec. Discussed possibility of coronary angiogram with her; she is still considering it. Code(s): Z91.89 - OTH PERSONAL RISK FACTORS, NOT ELSEWHERE CLASSIFIED (9) Asthma Code(s): J45.909 - UNSPECIFIED ASTHMA, UNCOMPLICATED Qualifiers: Asthma severity: moderate Asthma persistence: persistent Asthma complication type: with acute exacerbation Qualified Code(s): J45.41 - Moderate persistent asthma with (acute) exacerbation (10) Anxiety Code(s): F41.9 - ANXIETY DISORDER, UNSPECIFIED (11) Sleep apnea Assessment/Plan: Using mask for CPAP, and says it works well; she hopes to have it for home use. Code(s): G47.30 - SLEEP APNEA, UNSPECIFIED
[2018-10-11] MEDS: ALPRAZolam 0.25 MG TABLET PO PRN (16:49)
[2018-10-11] MEDS: ATORVASTATIN CA 20 MG TABLET (FP) PO SCH (21:36)
[2018-10-11] MEDS: MONTELUKAST NA 10 MG TABLET PO SCH (21:36)
[2018-10-11] MEDS: SENNOSIDES 8.6MG TABLET (FP) PO SCH (21:36)
[2018-10-12] MEDS: NYSTATIN 500,000 UNITS/5 ML SUSPENSION PO SCH ×3 (06:47→18:12)
[2018-10-12] MEDS: ALBUTEROL SO4 2.5/IPRATROPIUM 0.5 INH SOL 3 ML VIAL.NEB. NEB SCH ×4 (07:30→20:20)
--- NOTE | 2018-10-12 07:30 | PN ---
Progress Note, Physician Chief Complaint: had one episode of epistaxis; on nasal sprays, not on NC not on sq heparin if recurrent to recall ENT breathing better - Current Medication List Current Medications: Active Medications Al Hydroxide/Mg Hydroxide (Mylanta Oral Suspension -) 30 ml PO Q6H PRN PRN Reason: INDIGESTION Last Admin: 10/03/18 23:01 Dose: 30 ml Albuterol Sulfate (Ventolin 0.083% Nebulizer Soln -) 1 amp NEB Q4H PRN PRN Reason: SHORT OF BREATH/WHEEZING Last Admin: 10/10/18 23:00 Dose: 1 amp Albuterol/Ipratropium (Duoneb -) 1 amp NEB RQID [facility] Last Admin: 10/11/18 20:22 Dose: 1 amp Alprazolam (Xanax -) 0.25 mg PO BID PRN PRN Reason: ANXIETY Last Admin: 10/11/18 16:49 Dose: 0.25 mg Atorvastatin Calcium (Lipitor -) 20 mg PO HS [facility] Last Admin: 10/11/18 21:36 Dose: 20 mg Budesonide/Formoterol Fumarate (Symbicort 160/4.5mcg -) 2 puff IH BID [facility] Last Admin: 10/11/18 21:38 Dose: 2 puff Bupropion HCl (Wellbutrin -) 100 mg PO DAILY [facility] Last Admin: 10/11/18 09:25 Dose: 100 mg Cyclobenzaprine HCl (Flexeril -) 10 mg PO Q8H PRN PRN Reason: MUSCLE SPASMS Docusate Sodium (Colace -) 100 mg PO DAILY [facility] Last Admin: 10/11/18 09:24 Dose: 100 mg Ferrous Sulfate (Feosol -) 325 mg PO DAILY [facility] Last Admin: 10/11/18 09:24 Dose: 325 mg Fluticasone Propionate (Flonase -) 2 spray NS BID [facility] Last Admin: 10/11/18 21:38 Dose: 2 spray Guaifenesin (Robitussin Dm -) 10 ml PO Q4H PRN PRN Reason: COUGH Loratadine (Claritin -) 10 mg PO DAILY [facility] Last Admin: 10/11/18 09:24 Dose: 10 mg Methylprednisolone Sodium Succinate (Solu-Medrol -) 30 mg IVPUSH Q12H [facility] Last Admin: 10/11/18 21:36 Dose: 30 mg Montelukast Sodium (Singulair -) 10 mg PO HS [facility] Last Admin: 10/11/18 21:36 Dose: 10 mg Nystatin (Nystatin Oral Suspension -) 500,000 units PO Q6HPO [facility] Last Admin: 10/12/18 06:47 Dose: 500,000 units Pantoprazole Sodium (Protonix -) 40 mg PO DAILY [facility] Last Admin: 10/11/18 09:23 Dose: 40 mg Polyethylene Glycol (Miralax (For Daily Use) -) 17 gm PO DAILY [facility] Last Admin: 10/11/18 09:25 Dose: Not Given Ranitidine HCl (Zantac -) 300 mg PO DAILY [facility] Last Admin: 10/11/18 09:23 Dose: 300 mg Senna (Senna -) 2 tab PO HS [facility] Last Admin: 10/11/18 21:36 Dose: 2 tab Sodium Chloride ([place] Nasal [place] -) 2 spray NS BID [facility] Last Admin: 10/11/18 21:38 Dose: 2 spray - Objective Vital Signs: Vital Signs Temperature 97.3 F L 10/12/18 06:42 Pulse Rate 89 10/12/18 06:42 Respiratory Rate 20 10/12/18 06:42 Blood Pressure 136/77 10/12/18 06:42 O2 Sat by Pulse Oximetry (%) 96 10/11/18 21:00 Constitutional: Yes: No Distress, Calm Eyes: Yes: Conjunctiva Clear HENT: Yes: Atraumatic Neck: Yes: Supple Cardiovascular: Yes: Regular Rate and Rhythm Respiratory: Yes: Wheezes Gastrointestinal: Yes: Soft. No: Distention Genitourinary: No: CVA Tenderness - Left, CVA Tenderness - Right Musculoskeletal: No: Joint Stiffness, Joint Swelling Extremities: No: Cold, Cool, Cyanosis Edema: No Integumentary: No: Rash, Venous Stasis Changes Neurological: Yes: WNL, Alert, Oriented ...Motor Strength: WNL Psychiatric: Yes: WNL, Alert, Oriented. No: Agitated, Suicidal Ideation Labs: CBC, BMP 10/11/18 06:45 10/11/18 06:45 - ....Imaging Other: Report Reviewed Assessment/Plan Acute URI with acute on chronic exacerbation of copd/bronchospasm Chronic high dose steroid use/daily zithromax for prophylaxsis Multiple co-morbid conditions HTN HLP obesity COPD / asthma O2 dependant multiple antibiotic allergies o2 supplementation NC continuous medrol/bronchodilators/singulair pulmonary taper steroids as tolerated, pulmonary f/u; PPI for GERD Tx, GI f/u outpt cardiology f/u ENT f/u for epistaxis falls DVT gastric PFX d/w pt and staff, d/w pulm dr Arana
[2018-10-12 07:47] LABS: EOS % 0.1 % (0-4.5); HEMATOCRIT 34.9 % (32.4-45.2); HEMOGLOBIN 11.7 GM/dL (10.7-15.3); LYMPH % 7.8 % (8-40); MCH 24.9 pg (25.7-33.7); MCHC 33.4 g/dl (32.0-36.0); MEAN CELL VOLUME 74.6 fl (80-96); MEAN PLT VOLUME 7.7 fl (7.5-11.1); MONO % 4.9 % (3.8-10.2); NEUT % 87.1 % (42.8-82.8); PLATELET COUNT 383 K/MM3 (134-434); RBC 4.68 M/mm3 (3.60-5.2); RDW 19.6 % (11.6-15.6)
[2018-10-12 07:48] LABS: BASO % 0.1 % (0-2.0)
[2018-10-12 08:19] LABS: ANION GAP 9 MMOL/L (8-16); BLOOD UREA NITROGEN 19 mg/dL (7-18); CALCIUM 8.5 mg/dL (8.5-10.1); CHLORIDE 102 mmol/L (98-107); CO2 29 mmol/L (21-32); CREATININE 0.6 mg/dL (0.55-1.3); GLUCOSE,RANDOM 88 mg/dL (74-106); POTASSIUM 4.2 mmol/L (3.5-5.1); SODIUM 140 mmol/L (136-145)
[2018-10-12] MEDS ORDERED: PT OWN MED DRAWER 7, Y5N ONE (10:09)
[2018-10-12] MEDS: PANTOPRAZOLE 40 MG TABLET (FP) PO SCH (10:11)
[2018-10-12] MEDS: LORATADINE 10 MG TABLET PO SCH (10:11)
[2018-10-12] MEDS: FERROUS SO4 325 MG TABLET (FP) PO SCH (10:11)
[2018-10-12] MEDS: RANITIDINE HCL 150 MG TABLET (FP) PO SCH (10:11)
[2018-10-12] MEDS: DOCUSATE SODIUM 100 MG CAPSULE (FP) PO SCH (10:11)
[2018-10-12] MEDS: methylPREDNISolone NA SUCC 40 MG/1 ML VIAL IVPUSH SCH ×2 (10:11→21:24)
[2018-10-12] MEDS: buPROPion HCL 100 MG TABLET PO SCH (10:12)
[2018-10-12] MEDS: SODIUM CHLORIDE NASAL SPRAY 44 ML BOTTLE NS SCH ×2 (10:13→21:29)
[2018-10-12] MEDS: BUDESONIDE/FORMETEROL FUMARATE 160/4.5 mcg INHALER IH SCH ×2 (10:13→21:28)
[2018-10-12] MEDS: FLUTICASONE PROP 0.05% 16 GM NASAL SPRAY NS SCH ×2 (10:14→21:28)
[2018-10-12] MEDS: POLYETHYLENE GLYCOL 3350 119 GM BTL PO SCH (10:23)
--- NOTE | 2018-10-12 11:33 | PN ---
Progress Note, Physician History of Present Illness: The patient is a 63 year old white female, with a significant PMH of asthma, COPD, hyperlipidemia, hypertension, CHF (diastolic dysfunction), MGUS, peripheral neuropathy, GERD, hypothyroidism, who presents to the emergency department with asthma exacerbation beginning just prior to arrival. The patient states she received Decadron from EMS prior to arrival in the ED. The patient states she has not been feeling well for 2 days and endorses a productive cough with yellow sputum. The patient states she is on prednisone 80 mg for [address] James and a low dose of azithromycin. The patient denies any recent sick contacts or travel. The patient states she did receive a flu shot earlier this year. - Current Medication List Current Medications: Active Medications Al Hydroxide/Mg Hydroxide (Mylanta Oral Suspension -) 30 ml PO Q6H PRN PRN Reason: INDIGESTION Last Admin: 10/03/18 23:01 Dose: 30 ml Albuterol Sulfate (Ventolin 0.083% Nebulizer Soln -) 1 amp NEB Q4H PRN PRN Reason: SHORT OF BREATH/WHEEZING Last Admin: 10/10/18 23:00 Dose: 1 amp Albuterol/Ipratropium (Duoneb -) 1 amp NEB RQID [facility] Last Admin: 10/12/18 11:25 Dose: 1 amp Alprazolam (Xanax -) 0.25 mg PO BID PRN PRN Reason: ANXIETY Last Admin: 10/11/18 16:49 Dose: 0.25 mg Atorvastatin Calcium (Lipitor -) 20 mg PO HS [facility] Last Admin: 10/11/18 21:36 Dose: 20 mg Budesonide/Formoterol Fumarate (Symbicort 160/4.5mcg -) 2 puff IH BID [facility] Last Admin: 10/12/18 10:13 Dose: 2 puff Bupropion HCl (Wellbutrin -) 100 mg PO DAILY [facility] Last Admin: 10/12/18 10:12 Dose: 100 mg Cyclobenzaprine HCl (Flexeril -) 10 mg PO Q8H PRN PRN Reason: MUSCLE SPASMS Docusate Sodium (Colace -) 100 mg PO DAILY [facility] Last Admin: 10/12/18 10:11 Dose: 100 mg Ferrous Sulfate (Feosol -) 325 mg PO DAILY [facility] Last Admin: 10/12/18 10:11 Dose: 325 mg Fluticasone Propionate (Flonase -) 2 spray NS BID [facility] Last Admin: 10/12/18 10:14 Dose: 2 spray Guaifenesin (Robitussin Dm -) 10 ml PO Q4H PRN PRN Reason: COUGH Loratadine (Claritin -) 10 mg PO DAILY [facility] Last Admin: 10/12/18 10:11 Dose: 10 mg Methylprednisolone Sodium Succinate (Solu-Medrol -) 30 mg IVPUSH Q12H [facility] Last Admin: 10/12/18 10:11 Dose: 30 mg Montelukast Sodium (Singulair -) 10 mg PO HS [facility] Last Admin: 10/11/18 21:36 Dose: 10 mg Nystatin (Nystatin Oral Suspension -) 500,000 units PO Q6HPO [facility] Last Admin: 10/12/18 06:47 Dose: 500,000 units Pantoprazole Sodium (Protonix -) 40 mg PO DAILY [facility] Last Admin: 10/12/18 10:11 Dose: 40 mg Polyethylene Glycol (Miralax (For Daily Use) -) 17 gm PO DAILY [facility] Last Admin: 10/12/18 10:23 Dose: 17 gm Ranitidine HCl (Zantac -) 300 mg PO DAILY [facility] Last Admin: 10/12/18 10:11 Dose: 300 mg Senna (Senna -) 2 tab PO HS [facility] Last Admin: 10/11/18 21:36 Dose: 2 tab Sodium Chloride ([place] Nasal [place] -) 2 spray NS BID [facility] Last Admin: 10/12/18 10:13 Dose: 2 spray - Objective Vital Signs: Vital Signs Temperature 97.3 F L 10/12/18 06:42 Pulse Rate 89 10/12/18 06:42 Respiratory Rate 20 10/12/18 06:42 Blood Pressure 136/77 10/12/18 06:42 O2 Sat by Pulse Oximetry (%) 96 10/11/18 21:00 Eyes: Yes: WNL, Conjunctiva Clear, EOM Intact HENT: Yes: WNL, Atraumatic, Normocephalic Neck: Yes: WNL, Supple, Trachea Midline Cardiovascular: Yes: WNL, Regular Rate and Rhythm Respiratory: Yes: WNL, Regular, CTA Bilaterally Gastrointestinal: Yes: WNL, Normal Bowel Sounds Genitourinary: Yes: WNL Musculoskeletal: Yes: WNL Extremities: Yes: WNL Edema: No Integumentary: Yes: WNL Neurological: Yes: WNL, Alert, Oriented ...Motor Strength: WNL Psychiatric: Yes: WNL Labs: CBC, BMP 10/12/18 07:00 10/12/18 07:00 Assessment/Plan - Problems (1) Diastolic CHF Assessment/Plan: ECHO 10/06/2018:normal LVEF; aneuysmal atrial septum. ECHO 10/2017: normal LVEF; small pericardial effusion. Continues with episodes of dyspnea with minimal exertion. Very limited exercise; pt says she gets tired and dyspneic easily. BUN/Cr, electrolytes, Is and Os, daily weight. TSH WNL. Bronchodilators/steroids/O2 per boil off machine operator cloth. Diet modification, portion control as aids for weight loss. Code(s): I50.30 - UNSPECIFIED DIASTOLIC (CONGESTIVE) HEART FAILURE (2) Acute bronchitis Assessment/Plan: f/u bronchodilators, steroids, antibiotics with boil off machine operator cloth. Code(s): J20.9 - ACUTE BRONCHITIS, UNSPECIFIED (3) Diabetes mellitus Code(s): E11.9 - TYPE 2 DIABETES MELLITUS WITHOUT COMPLICATIONS (4) HLD (hyperlipidemia) Assessment/Plan: f/u lipid profile. On atorvastatin. The importance of heart-healthy diet, portion control, and weight loss was discussed in detail. Code(s): E78.5 - HYPERLIPIDEMIA, UNSPECIFIED (5) Hypertension Code(s): I10 - ESSENTIAL (PRIMARY) HYPERTENSION (6) Acute exacerbation of COPD with asthma Code(s): J44.1 - CHRONIC OBSTRUCTIVE PULMONARY DISEASE W (ACUTE) EXACERBATION; J45.901 - UNSPECIFIED ASTHMA WITH (ACUTE) EXACERBATION (7) MGUS (monoclonal gammopathy of unknown significance) Code(s): D47.2 - MONOCLONAL GAMMOPATHY (8) [place] cardiac risk >20% in next 10 years Assessment/Plan: Stress dobutamine mibi 10/2017: no ischemia, but suboptimal HR reached. Pt c/o increasing episodes of dyspnea she thinks are not related to asthma. Episode of "bad heartburn" at rest yesterday, lasting about an hour, with some response to Prilosec. Discussed possibility of coronary angiogram with her; she will consider it. Code(s): Z91.89 - OTH PERSONAL RISK FACTORS, NOT ELSEWHERE CLASSIFIED (9) Asthma Code(s): J45.909 - UNSPECIFIED ASTHMA, UNCOMPLICATED Qualifiers: Asthma severity: moderate Asthma persistence: persistent Asthma complication type: with acute exacerbation Qualified Code(s): J45.41 - Moderate persistent asthma with (acute) exacerbation (10) Anxiety Code(s): F41.9 - ANXIETY DISORDER, UNSPECIFIED (11) Sleep apnea Assessment/Plan: Using mask for CPAP, and says it works well; she hopes to have it for home use. Code(s): G47.30 - SLEEP APNEA, UNSPECIFIED
[2018-10-12 12:05] LABS: ANISOCYTOSIS 2+; MACROCYTOSIS 0; PLATELET ESTIMATE NORMAL
--- NOTE | 2018-10-12 14:55 | PN ---
Progress Note, Physician History of Present Illness: pulmonary alert,feeling better,less dyspneic - Current Medication List Current Medications: Active Medications Al Hydroxide/Mg Hydroxide (Mylanta Oral Suspension -) 30 ml PO Q6H PRN PRN Reason: INDIGESTION Last Admin: 10/03/18 23:01 Dose: 30 ml Albuterol Sulfate (Ventolin 0.083% Nebulizer Soln -) 1 amp NEB Q4H PRN PRN Reason: SHORT OF BREATH/WHEEZING Last Admin: 10/10/18 23:00 Dose: 1 amp Albuterol/Ipratropium (Duoneb -) 1 amp NEB RQID [facility] Last Admin: 10/12/18 11:25 Dose: 1 amp Alprazolam (Xanax -) 0.25 mg PO BID PRN PRN Reason: ANXIETY Last Admin: 10/11/18 16:49 Dose: 0.25 mg Atorvastatin Calcium (Lipitor -) 20 mg PO HS [facility] Last Admin: 10/11/18 21:36 Dose: 20 mg Budesonide/Formoterol Fumarate (Symbicort 160/4.5mcg -) 2 puff IH BID [facility] Last Admin: 10/12/18 10:13 Dose: 2 puff Bupropion HCl (Wellbutrin -) 100 mg PO DAILY [facility] Last Admin: 10/12/18 10:12 Dose: 100 mg Cyclobenzaprine HCl (Flexeril -) 10 mg PO Q8H PRN PRN Reason: MUSCLE SPASMS Docusate Sodium (Colace -) 100 mg PO DAILY [facility] Last Admin: 10/12/18 10:11 Dose: 100 mg Ferrous Sulfate (Feosol -) 325 mg PO DAILY [facility] Last Admin: 10/12/18 10:11 Dose: 325 mg Fluticasone Propionate (Flonase -) 2 spray NS BID [facility] Last Admin: 10/12/18 10:14 Dose: 2 spray Guaifenesin (Robitussin Dm -) 10 ml PO Q4H PRN PRN Reason: COUGH Loratadine (Claritin -) 10 mg PO DAILY [facility] Last Admin: 10/12/18 10:11 Dose: 10 mg Methylprednisolone Sodium Succinate (Solu-Medrol -) 30 mg IVPUSH Q12H [facility] Last Admin: 10/12/18 10:11 Dose: 30 mg Montelukast Sodium (Singulair -) 10 mg PO HS [facility] Last Admin: 10/11/18 21:36 Dose: 10 mg Nystatin (Nystatin Oral Suspension -) 500,000 units PO Q6HPO [facility] Last Admin: 10/12/18 14:16 Dose: Not Given Pantoprazole Sodium (Protonix -) 40 mg PO DAILY [facility] Last Admin: 10/12/18 10:11 Dose: 40 mg Polyethylene Glycol (Miralax (For Daily Use) -) 17 gm PO DAILY [facility] Last Admin: 10/12/18 10:23 Dose: 17 gm Ranitidine HCl (Zantac -) 300 mg PO DAILY [facility] Last Admin: 10/12/18 10:11 Dose: 300 mg Senna (Senna -) 2 tab PO HS [facility] Last Admin: 10/11/18 21:36 Dose: 2 tab Sodium Chloride ([place] Nasal [place] -) 2 spray NS BID [facility] Last Admin: 10/12/18 10:13 Dose: 2 spray - Objective Vital Signs: Vital Signs Temperature 97.3 F L 10/12/18 06:42 Pulse Rate 89 10/12/18 06:42 Respiratory Rate 20 10/12/18 06:42 Blood Pressure 136/77 10/12/18 06:42 O2 Sat by Pulse Oximetry (%) 96 10/11/18 21:00 Constitutional: Yes: Well Nourished, Calm Eyes: Yes: WNL HENT: Yes: WNL Neck: Yes: WNL Cardiovascular: Yes: Regular Rate and Rhythm, S1, S2 Respiratory: Yes: Diminished, Rhonchi, Wheezes (few scattered wheezes and rhonchi bilaterally) Gastrointestinal: Yes: Normal Bowel Sounds, Soft Extremities: Yes: WNL Edema: No Labs: CBC, BMP 10/12/18 07:00 10/12/18 07:00 Problem List - Problems (1) COPD (chronic obstructive pulmonary disease) Code(s): J44.9 - CHRONIC OBSTRUCTIVE PULMONARY DISEASE, UNSPECIFIED Qualifiers: COPD type: COPD with acute exacerbation Qualified Code(s): J44.1 - Chronic obstructive pulmonary disease with (acute) exacerbation (2) Diabetes mellitus Code(s): E11.9 - TYPE 2 DIABETES MELLITUS WITHOUT COMPLICATIONS (3) HLD (hyperlipidemia) Code(s): E78.5 - HYPERLIPIDEMIA, UNSPECIFIED (4) Obstructive sleep apnea Code(s): G47.33 - OBSTRUCTIVE SLEEP APNEA (ADULT) (PEDIATRIC) (5) Acute exacerbation of COPD with asthma Code(s): J44.1 - CHRONIC OBSTRUCTIVE PULMONARY DISEASE W (ACUTE) EXACERBATION; J45.901 - UNSPECIFIED ASTHMA WITH (ACUTE) EXACERBATION Assessment/Plan A/P Acute COPD Exacerbation Acute Bronchitis LV Diastolic Dysfunction Hypercholesterolemia Obstructive Sleep Apnea - medrol same dose taper in am - inhaled bronchodilators - CPAP at night - O2 to keep SpO2 >90% - DVT prophylaxis DR GRAHAM
[2018-10-12] MEDS: ALPRAZolam 0.25 MG TABLET PO PRN (18:17)
[2018-10-12] MEDS: ATORVASTATIN CA 20 MG TABLET (FP) PO SCH (21:23)
[2018-10-12] MEDS: MONTELUKAST NA 10 MG TABLET PO SCH (21:23)
[2018-10-12] MEDS: SENNOSIDES 8.6MG TABLET (FP) PO SCH (21:23)
[2018-10-13] MEDS: NYSTATIN 500,000 UNITS/5 ML SUSPENSION PO SCH ×5 (00:59→23:27)
[2018-10-13] MEDS: ALBUTEROL SO4 2.5/IPRATROPIUM 0.5 INH SOL 3 ML VIAL.NEB. NEB SCH ×4 (07:25→20:34)
--- NOTE | 2018-10-13 08:42 | PN ---
Progress Note, Physician Chief Complaint: had again R sided nose bleeds, ENT recalled less SOB less cough - Current Medication List Current Medications: Active Medications Al Hydroxide/Mg Hydroxide (Mylanta Oral Suspension -) 30 ml PO Q6H PRN PRN Reason: INDIGESTION Last Admin: 10/03/18 23:01 Dose: 30 ml Albuterol Sulfate (Ventolin 0.083% Nebulizer Soln -) 1 amp NEB Q4H PRN PRN Reason: SHORT OF BREATH/WHEEZING Last Admin: 10/10/18 23:00 Dose: 1 amp Albuterol/Ipratropium (Duoneb -) 1 amp NEB RQID [facility] Last Admin: 10/12/18 20:20 Dose: 1 amp Alprazolam (Xanax -) 0.25 mg PO BID PRN PRN Reason: ANXIETY Last Admin: 10/12/18 18:17 Dose: 0.25 mg Atorvastatin Calcium (Lipitor -) 20 mg PO HS [facility] Last Admin: 10/12/18 21:23 Dose: 20 mg Budesonide/Formoterol Fumarate (Symbicort 160/4.5mcg -) 2 puff IH BID [facility] Last Admin: 10/12/18 21:28 Dose: 2 puff Bupropion HCl (Wellbutrin -) 100 mg PO DAILY [facility] Last Admin: 10/12/18 10:12 Dose: 100 mg Cyclobenzaprine HCl (Flexeril -) 10 mg PO Q8H PRN PRN Reason: MUSCLE SPASMS Docusate Sodium (Colace -) 100 mg PO DAILY [facility] Last Admin: 10/12/18 10:11 Dose: 100 mg Ferrous Sulfate (Feosol -) 325 mg PO DAILY [facility] Last Admin: 10/12/18 10:11 Dose: 325 mg Fluticasone Propionate (Flonase -) 2 spray NS BID [facility] Last Admin: 10/12/18 21:28 Dose: Not Given Guaifenesin (Robitussin Dm -) 10 ml PO Q4H PRN PRN Reason: COUGH Loratadine (Claritin -) 10 mg PO DAILY [facility] Last Admin: 10/12/18 10:11 Dose: 10 mg Methylprednisolone Sodium Succinate (Solu-Medrol -) 30 mg IVPUSH Q12H [facility] Last Admin: 10/12/18 21:24 Dose: 30 mg Montelukast Sodium (Singulair -) 10 mg PO HS [facility] Last Admin: 10/12/18 21:23 Dose: 10 mg Nystatin (Nystatin Oral Suspension -) 500,000 units PO Q6HPO [facility] Last Admin: 10/13/18 06:02 Dose: 500,000 units Pantoprazole Sodium (Protonix -) 40 mg PO DAILY [facility] Last Admin: 10/12/18 10:11 Dose: 40 mg Polyethylene Glycol (Miralax (For Daily Use) -) 17 gm PO DAILY [facility] Last Admin: 10/12/18 10:23 Dose: 17 gm Ranitidine HCl (Zantac -) 300 mg PO DAILY [facility] Last Admin: 10/12/18 10:11 Dose: 300 mg Senna (Senna -) 2 tab PO [facility] Last Admin: 10/12/18 21:23 Dose: 2 tab Sodium Chloride ([place] Nasal [place] -) 2 spray NS BID [facility] Last Admin: 10/12/18 21:29 Dose: Not Given - Objective Vital Signs: Vital Signs Temperature 98.1 F 10/13/18 06:00 Pulse Rate 81 10/13/18 06:00 Respiratory Rate 18 10/13/18 06:00 Blood Pressure 112/65 10/13/18 06:00 O2 Sat by Pulse Oximetry (%) 95 10/12/18 20:43 Constitutional: Yes: No Distress, Calm Eyes: Yes: Conjunctiva Clear HENT: Yes: Atraumatic Neck: Yes: Supple Cardiovascular: Yes: Regular Rate and Rhythm Respiratory: Yes: Wheezes Gastrointestinal: Yes: Soft. No: Distention Genitourinary: No: CVA Tenderness - Left, CVA Tenderness - Right Musculoskeletal: No: Joint Stiffness, Joint Swelling Extremities: No: Cold, Cool, Cyanosis Edema: No Integumentary: No: Rash, Venous Stasis Changes Neurological: Yes: WNL, Alert, Oriented ...Motor Strength: WNL Psychiatric: Yes: WNL, Alert, Oriented. No: Agitated, Suicidal Ideation Labs: CBC, BMP 10/12/18 07:00 10/12/18 07:00 - ....Imaging Other: Report Reviewed Assessment/Plan Acute URI with acute on chronic exacerbation of copd/bronchospasm Chronic high dose steroid use/daily zithromax for prophylaxsis Multiple co-morbid conditions HTN HLP obesity COPD / asthma O2 dependant multiple antibiotic allergies o2 supplementation NC continuous medrol/bronchodilators/singulair per pulmonary taper steroids as tolerated, pulmonary f/u; PPI for GERD Tx, GI f/u outpt cardiology f/u ENT f/u for epistaxis falls DVT gastric PFX d/w pt and staff
--- NOTE | 2018-10-13 08:57 | PN ---
Progress Note (short form) - Note Progress Note: Breathing feels a little better today. Still with cough and wheezing, but improving. No fevers. Intake & Output 10/10/18 10/11/18 10/12/18 10/13/18 23:59 23:59 23:59 23:59 Intake Total 4187 321 1711 350 Balance 1730 078 3613 350 Last Vital Signs Temp Pulse Resp BP Pulse Ox 98.1 F 81 18 112/65 95 10/13/18 06:00 10/13/18 06:00 10/13/18 06:00 10/13/18 06:00 10/12/18 20:43 Active Medications Al Hydroxide/Mg Hydroxide (Mylanta Oral Suspension -) 30 ml PO Q6H PRN PRN Reason: INDIGESTION Last Admin: 10/03/18 23:01 Dose: 30 ml Albuterol Sulfate (Ventolin 0.083% Nebulizer Soln -) 1 amp NEB Q4H PRN PRN Reason: SHORT OF BREATH/WHEEZING Last Admin: 10/10/18 23:00 Dose: 1 amp Albuterol/Ipratropium (Duoneb -) 1 amp NEB RQID [facility] Last Admin: 10/12/18 20:20 Dose: 1 amp Alprazolam (Xanax -) 0.25 mg PO BID PRN PRN Reason: ANXIETY Last Admin: 10/12/18 18:17 Dose: 0.25 mg Atorvastatin Calcium (Lipitor -) 20 mg PO HS [facility] Last Admin: 10/12/18 21:23 Dose: 20 mg Budesonide/Formoterol Fumarate (Symbicort 160/4.5mcg -) 2 puff IH BID [facility] Last Admin: 10/12/18 21:28 Dose: 2 puff Bupropion HCl (Wellbutrin -) 100 mg PO DAILY [facility] Last Admin: 10/12/18 10:12 Dose: 100 mg Cyclobenzaprine HCl (Flexeril -) 10 mg PO Q8H PRN PRN Reason: MUSCLE SPASMS Docusate Sodium (Colace -) 100 mg PO DAILY [facility] Last Admin: 10/12/18 10:11 Dose: 100 mg Ferrous Sulfate (Feosol -) 325 mg PO DAILY [facility] Last Admin: 10/12/18 10:11 Dose: 325 mg Fluticasone Propionate (Flonase -) 2 spray NS BID [facility] Last Admin: 10/12/18 21:28 Dose: Not Given Guaifenesin (Robitussin Dm -) 10 ml PO Q4H PRN PRN Reason: COUGH Loratadine (Claritin -) 10 mg PO DAILY [facility] Last Admin: 10/12/18 10:11 Dose: 10 mg Methylprednisolone Sodium Succinate (Solu-Medrol -) 30 mg IVPUSH Q12H [facility] Last Admin: 10/12/18 21:24 Dose: 30 mg Montelukast Sodium (Singulair -) 10 mg PO HS [facility] Last Admin: 10/12/18 21:23 Dose: 10 mg Nystatin (Nystatin Oral Suspension -) 500,000 units PO Q6HPO [facility] Last Admin: 10/13/18 06:02 Dose: 500,000 units Pantoprazole Sodium (Protonix -) 40 mg PO DAILY [facility] Last Admin: 10/12/18 10:11 Dose: 40 mg Polyethylene Glycol (Miralax (For Daily Use) -) 17 gm PO DAILY [facility] Last Admin: 10/12/18 10:23 Dose: 17 gm Ranitidine HCl (Zantac -) 300 mg PO DAILY [facility] Last Admin: 10/12/18 10:11 Dose: 300 mg Senna (Senna -) 2 tab PO HS [facility] Last Admin: 10/12/18 21:23 Dose: 2 tab Sodium Chloride ([place] Nasal [place] -) 2 spray NS BID [facility] Last Admin: 10/12/18 21:29 Dose: Not Given Gen: Mildly tachpyneic with speaking Heart: RRR Lung: distant breath sounds, bilateral rhonchi and wheezes Abd: soft, nontender Ext: no edema Laboratory Results - last 24 hr 10/12/18 07:00 Neutrophils % (Manual) 92.9 H Band Neutrophils % 0.0 Lymphocytes % (Manual) 3.1 L D Monocytes % (Manual) 1 L Eosinophils % (Manual) 0.0 Basophils % (Manual) 0.0 Myelocytes % (Man) 1 D Promyelocytes % (Man) 0 Blast Cells % (Manual) 0 Metamyelocytes 2 D Hypochromia 0 Platelet Estimate Normal Polychromasia 1+ Poikilocytosis 0 Anisocytosis 2+ Microcytosis 2+ Macrocytosis 0 Stomatocytes 0 A/P Acute COPD Exacerbation Acute Bronchitis LV Diastolic Dysfunction Hypercholesterolemia Obstructive Sleep Apnea Overlap Syndrome - Medrol at current dose: can consider change to Prednisone if stable/improved in the AM - inhaled bronchodilators - CPAP QHS - antibiotics per ID - O2 to keep SpO2 >90% - DVT prophylaxis - Advised to ambulate as tolerated today - Due to to the diagnosis of Advanced COPD, the patient requires a lightweight portable Oxygen system. Dr Arana
[2018-10-13] MEDS: DOCUSATE SODIUM 100 MG CAPSULE (FP) PO SCH (10:50)
[2018-10-13] MEDS: RANITIDINE HCL 150 MG TABLET (FP) PO SCH (10:50)
[2018-10-13] MEDS: FERROUS SO4 325 MG TABLET (FP) PO SCH (10:51)
[2018-10-13] MEDS: PANTOPRAZOLE 40 MG TABLET (FP) PO SCH (10:51)
[2018-10-13] MEDS: LORATADINE 10 MG TABLET PO SCH (10:51)
[2018-10-13] MEDS: methylPREDNISolone NA SUCC 40 MG/1 ML VIAL IVPUSH SCH ×2 (10:51→21:21)
[2018-10-13] MEDS: SODIUM CHLORIDE NASAL SPRAY 44 ML BOTTLE NS SCH ×2 (10:52→21:22)
[2018-10-13] MEDS: BUDESONIDE/FORMETEROL FUMARATE 160/4.5 mcg INHALER IH SCH ×2 (10:52→21:21)
[2018-10-13] MEDS: FLUTICASONE PROP 0.05% 16 GM NASAL SPRAY NS SCH ×2 (10:53→21:22)
[2018-10-13] MEDS: POLYETHYLENE GLYCOL 3350 119 GM BTL PO SCH (10:55)
[2018-10-13] MEDS ORDERED: PT OWN MED DRAWER 7, Y5N ONE ×2 (11:03→19:33)
[2018-10-13] MEDS: buPROPion HCL 100 MG TABLET PO SCH (11:09)
--- NOTE | 2018-10-13 18:04 | PN ---
Progress Note (short form) - Note Progress Note: Pt ecxamined for recurrent right nosebleeds, and bleeding started right kisselbach's area. I cauterized with silver nitrate and lido/afrin spray. i used packing of bacitracin/cotton and the bleeding stopped. F/U in office 1-2 weeks. Humidifier, bacitracin ointment
[2018-10-13] MEDS: ATORVASTATIN CA 20 MG TABLET (FP) PO SCH (21:22)
[2018-10-13] MEDS: MONTELUKAST NA 10 MG TABLET PO SCH (21:22)
[2018-10-13] MEDS: ALPRAZolam 0.25 MG TABLET PO PRN (21:22)
[2018-10-13] MEDS: BACITRACIN 15 GM TUBE TOPICAL OINTMENT TP SCH (21:22)
[2018-10-13] MEDS: SENNOSIDES 8.6MG TABLET (FP) PO SCH (21:22)
[2018-10-14] MEDS: NYSTATIN 500,000 UNITS/5 ML SUSPENSION PO SCH ×3 (05:36→17:19)
[2018-10-14] MEDS: ALBUTEROL SO4 2.5/IPRATROPIUM 0.5 INH SOL 3 ML VIAL.NEB. NEB SCH ×4 (07:35→20:05)
[2018-10-14 07:51] LABS: BASO % 0.2 % (0-2.0); HEMATOCRIT 37.7 % (32.4-45.2); HEMOGLOBIN 11.6 GM/dL (10.7-15.3); LYMPH % 5.4 % (8-40); MCH 23.2 pg (25.7-33.7); MCHC 30.7 g/dl (32.0-36.0); MEAN CELL VOLUME 75.7 fl (80-96); MEAN PLT VOLUME 7.8 fl (7.5-11.1); MONO % 2.9 % (3.8-10.2); NEUT % 91.5 % (42.8-82.8); PLATELET COUNT 349 K/MM3 (134-434); RBC 4.97 M/mm3 (3.60-5.2); RDW 19.9 % (11.6-15.6); WHITE BLOOD COUNT 23.1 K/mm3 (4.0-10.0)
[2018-10-14 08:22] LABS: ALK PHOS 48 U/L (45-117); ANION GAP 8 MMOL/L (8-16); BILIRUBIN,TOTAL 0.2 mg/dL (0.2-1); BLOOD UREA NITROGEN 21 mg/dL (7-18); CALCIUM 8.6 mg/dL (8.5-10.1); CHLORIDE 102 mmol/L (98-107); CO2 30 mmol/L (21-32); CREATININE 0.7 mg/dL (0.55-1.3); GLUCOSE,RANDOM 153 mg/dL (74-106); POTASSIUM 4.2 mmol/L (3.5-5.1); SGOT/AST 13 U/L (15-37); SGPT/ALT 31 U/L (13-61); SODIUM 139 mmol/L (136-145); TOT PROT 6.5 g/dl (6.4-8.2)
--- NOTE | 2018-10-14 08:33 | DS ---
Physical Examination Vital Signs: Vital Signs Temperature 97.5 F L 10/14/18 05:39 Pulse Rate 95 H 10/14/18 05:39 Respiratory Rate 20 10/14/18 05:39 Blood Pressure 141/75 10/14/18 05:39 O2 Sat by Pulse Oximetry (%) 95 10/13/18 20:01 Labs: CBC, BMP 10/14/18 06:30 10/14/18 06:30 Discharge Summary Reason For Visit: CHRONIC OBSTRUCTIVE ASTHMA WITH EXACERBATION Current Active Problems Acute bronchitis (Acute) Anxiety (Acute) COPD (chronic obstructive pulmonary disease) (Acute) Diabetes mellitus (Acute) Diastolic CHF (Acute) [place] cardiac risk >20% in next 10 years (Acute) GERD (gastroesophageal reflux disease) (Acute) HLD (hyperlipidemia) (Acute) Hypertension (Acute) Hypoalbuminemia (Acute) Obstructive sleep apnea (Acute) Rotator cuff disorder (Acute) Sleep apnea (Acute) Thrush (Acute) - Instructions Referrals: Amarjit Burrell MD [Primary Care Provider] - - Home Medications Comprehensive Discharge Medication List: Ambulatory Orders Acetaminophen [Tylenol Extra Strength] 500 mg PO PRN PRN 09/29/18 Albuterol Sulfate Inhaler - [Ventolin Hfa Inhaler -] 1 - 2 inh PO QID PRN Atorvastatin Calcium [Lipitor] 20 mg PO DAILY 09/29/18 Budesonide/Formeterol Fumarate [SYMBICORT 160/4.5mcg -] 1 inh PO BID 09/29/18 Bupropion HCl 100 mg PO DAILY 09/29/18 Cetirizine HCl 10 mg PO DAILY 09/29/18 Cyclosporine [Restasis] 1 each OP DAILY 09/29/18 Famotidine [Pepcid] 40 mg PO DAILY 09/29/18 Fluticasone Propionate 2 spray NS BID 09/29/18 Ipratropium/Albuterol Sulfate [Iprat-Albut 0.5-3(2.5) mg/3 ml] 1 vial IH Q4H Lorazepam 1 mg PO PRN PRN 09/29/18 Montelukast Sodium [Singulair] 10 mg PO DAILY 09/29/18 predniSONE [Deltasone -] 10 mg PO ASDIR 09/29/18
[2018-10-14] MEDS ORDERED: PT OWN MED DRAWER 7, Y5N ONE (09:53)
[2018-10-14] MEDS: PANTOPRAZOLE 40 MG TABLET (FP) PO SCH (10:00)
[2018-10-14] MEDS: buPROPion HCL 100 MG TABLET PO SCH (10:00)
[2018-10-14] MEDS: FERROUS SO4 325 MG TABLET (FP) PO SCH (10:00)
[2018-10-14] MEDS: DOCUSATE SODIUM 100 MG CAPSULE (FP) PO SCH (10:00)
[2018-10-14] MEDS: RANITIDINE HCL 150 MG TABLET (FP) PO SCH (10:00)
[2018-10-14] MEDS: POLYETHYLENE GLYCOL 3350 119 GM BTL PO SCH (10:00)
[2018-10-14] MEDS: BACITRACIN 15 GM TUBE TOPICAL OINTMENT TP SCH ×2 (10:00→21:25)
[2018-10-14] MEDS: LORATADINE 10 MG TABLET PO SCH (10:00)
[2018-10-14] MEDS: methylPREDNISolone NA SUCC 40 MG/1 ML VIAL IVPUSH SCH (10:00)
[2018-10-14] MEDS: BUDESONIDE/FORMETEROL FUMARATE 160/4.5 mcg INHALER IH SCH ×2 (10:01→21:26)
[2018-10-14] MEDS: SODIUM CHLORIDE NASAL SPRAY 44 ML BOTTLE NS SCH ×2 (10:02→21:26)
[2018-10-14] MEDS: FLUTICASONE PROP 0.05% 16 GM NASAL SPRAY NS SCH ×2 (10:02→21:26)
[2018-10-14 11:40] LABS: ANISOCYTOSIS 1+; MACROCYTOSIS 0; PLATELET ESTIMATE NORMAL
--- NOTE | 2018-10-14 11:55 | PN ---
Progress Note, Physician Chief Complaint: feels better; to be swithed to po prednisone by pulm today but pt wants to wait one more day \\to see how she does on po; said he got worse in the past after changing from iv to po prednisone and "ended right back in ER"s/p cauterization of nasal mucosa; no more bleed - Current Medication List Current Medications: Active Medications Al Hydroxide/Mg Hydroxide (Mylanta Oral Suspension -) 30 ml PO Q6H PRN PRN Reason: INDIGESTION Last Admin: 10/03/18 23:01 Dose: 30 ml Albuterol Sulfate (Ventolin 0.083% Nebulizer Soln -) 1 amp NEB Q4H PRN PRN Reason: SHORT OF BREATH/WHEEZING Last Admin: 10/10/18 23:00 Dose: 1 amp Albuterol/Ipratropium (Duoneb -) 1 amp NEB RQID [facility] Last Admin: 10/14/18 07:35 Dose: 1 amp Alprazolam (Xanax -) 0.25 mg PO BID PRN PRN Reason: ANXIETY Last Admin: 10/13/18 21:22 Dose: 0.25 mg Atorvastatin Calcium (Lipitor -) 20 mg PO HS [facility] Last Admin: 10/13/18 21:22 Dose: 20 mg Bacitracin (Bacitracin -) 1 applic TP BID [facility] Last Admin: 10/14/18 10:00 Dose: Not Given Budesonide/Formoterol Fumarate (Symbicort 160/4.5mcg -) 2 puff IH BID [facility] Last Admin: 10/14/18 10:01 Dose: 2 puff Bupropion HCl (Wellbutrin -) 100 mg PO DAILY [facility] Last Admin: 10/14/18 10:00 Dose: 100 mg Cyclobenzaprine HCl (Flexeril -) 10 mg PO Q8H PRN PRN Reason: MUSCLE SPASMS Docusate Sodium (Colace -) 100 mg PO DAILY [facility] Last Admin: 10/14/18 10:00 Dose: 100 mg Ferrous Sulfate (Feosol -) 325 mg PO DAILY [facility] Last Admin: 10/14/18 10:00 Dose: 325 mg Fluticasone Propionate (Flonase -) 2 spray NS BID [facility] Last Admin: 10/14/18 10:02 Dose: 2 spray Guaifenesin (Robitussin Dm -) 10 ml PO Q4H PRN PRN Reason: COUGH Loratadine (Claritin -) 10 mg PO DAILY [facility] Last Admin: 10/14/18 10:00 Dose: 10 mg Methylprednisolone Sodium Succinate (Solu-Medrol -) 30 mg IVPUSH Q12H [facility] Last Admin: 10/14/18 10:00 Dose: 30 mg Montelukast Sodium (Singulair -) 10 mg PO HS [facility] Last Admin: 10/13/18 21:22 Dose: 10 mg Nystatin (Nystatin Oral Suspension -) 500,000 units PO Q6HPO [facility] Last Admin: 10/14/18 11:40 Dose: 500,000 units Pantoprazole Sodium (Protonix -) 40 mg PO DAILY [facility] Last Admin: 10/14/18 10:00 Dose: 40 mg Polyethylene Glycol (Miralax (For Daily Use) -) 17 gm PO DAILY [facility] Last Admin: 10/14/18 10:00 Dose: 17 gm Ranitidine HCl (Zantac -) 300 mg PO DAILY [facility] Last Admin: 10/14/18 10:00 Dose: 300 mg Senna (Senna -) 2 tab PO HS [facility] Last Admin: 10/13/18 21:22 Dose: 2 tab Sodium Chloride ([place] Nasal [place] -) 2 spray NS BID [facility] Last Admin: 10/14/18 10:02 Dose: 2 spray - Objective Vital Signs: Vital Signs Temperature 98.2 F 10/14/18 10:00 Pulse Rate 93 H 10/14/18 10:00 Respiratory Rate 18 10/14/18 10:00 Blood Pressure 127/71 10/14/18 10:00 O2 Sat by Pulse Oximetry (%) 95 10/13/18 20:01 Constitutional: Yes: No Distress Eyes: Yes: Conjunctiva Clear HENT: Yes: Atraumatic Neck: Yes: Supple Cardiovascular: Yes: Regular Rate and Rhythm Respiratory: Yes: CTA Bilaterally Gastrointestinal: Yes: Soft. No: Tenderness Genitourinary: No: CVA Tenderness - Left, CVA Tenderness - Right Musculoskeletal: No: Joint Stiffness, Joint Swelling Extremities: No: Cold, Cool Edema: No Integumentary: No: Rash, Venous Stasis Changes Neurological: Yes: WNL, Alert, Oriented ...Motor Strength: WNL Psychiatric: Yes: WNL, Alert, Oriented. No: Agitated, Suicidal Ideation Labs: CBC, BMP 10/14/18 06:30 10/14/18 06:30 - ....Imaging Other: Report Reviewed Assessment/Plan Acute URI with acute on chronic exacerbation of copd/bronchospasm Chronic high dose steroid use/daily zithromax for prophylaxsis Multiple co-morbid conditions HTN HLP obesity COPD / asthma O2 dependant multiple antibiotic allergies o2 supplementation NC continuous medrol/bronchodilators/singulair per pulmonary taper steroids as tolerated, switch steroids to po pulmonary f/u; PPI for GERD Tx, GI f/u outpt cardiology f/u ENT f/u for epistaxis outpt if stable on po DC home in am; pt has home O2 NC and bipap falls DVT gastric PFX d/w pt and staff
--- NOTE | 2018-10-14 13:12 | PN ---
Progress Note, Physician History of Present Illness: pulmonary alert,feeling better,less dyspneic,less cough - Current Medication List Current Medications: Active Medications Al Hydroxide/Mg Hydroxide (Mylanta Oral Suspension -) 30 ml PO Q6H PRN PRN Reason: INDIGESTION Last Admin: 10/03/18 23:01 Dose: 30 ml Albuterol Sulfate (Ventolin 0.083% Nebulizer Soln -) 1 amp NEB Q4H PRN PRN Reason: SHORT OF BREATH/WHEEZING Last Admin: 10/10/18 23:00 Dose: 1 amp Albuterol/Ipratropium (Duoneb -) 1 amp NEB RQID [facility] Last Admin: 10/14/18 07:35 Dose: 1 amp Alprazolam (Xanax -) 0.25 mg PO BID PRN PRN Reason: ANXIETY Last Admin: 10/13/18 21:22 Dose: 0.25 mg Atorvastatin Calcium (Lipitor -) 20 mg PO HS [facility] Last Admin: 10/13/18 21:22 Dose: 20 mg Bacitracin (Bacitracin -) 1 applic TP BID [facility] Last Admin: 10/14/18 10:00 Dose: Not Given Budesonide/Formoterol Fumarate (Symbicort 160/4.5mcg -) 2 puff IH BID [facility] Last Admin: 10/14/18 10:01 Dose: 2 puff Bupropion HCl (Wellbutrin -) 100 mg PO DAILY [facility] Last Admin: 10/14/18 10:00 Dose: 100 mg Cyclobenzaprine HCl (Flexeril -) 10 mg PO Q8H PRN PRN Reason: MUSCLE SPASMS Docusate Sodium (Colace -) 100 mg PO DAILY [facility] Last Admin: 10/14/18 10:00 Dose: 100 mg Ferrous Sulfate (Feosol -) 325 mg PO DAILY [facility] Last Admin: 10/14/18 10:00 Dose: 325 mg Fluticasone Propionate (Flonase -) 2 spray NS BID [facility] Last Admin: 10/14/18 10:02 Dose: 2 spray Guaifenesin (Robitussin Dm -) 10 ml PO Q4H PRN PRN Reason: COUGH Loratadine (Claritin -) 10 mg PO DAILY [facility] Last Admin: 10/14/18 10:00 Dose: 10 mg Methylprednisolone Sodium Succinate (Solu-Medrol -) 30 mg IVPUSH Q12H [facility] Last Admin: 10/14/18 10:00 Dose: 30 mg Montelukast Sodium (Singulair -) 10 mg PO HS [facility] Last Admin: 10/13/18 21:22 Dose: 10 mg Nystatin (Nystatin Oral Suspension -) 500,000 units PO Q6HPO [facility] Last Admin: 10/14/18 11:40 Dose: 500,000 units Pantoprazole Sodium (Protonix -) 40 mg PO DAILY [facility] Last Admin: 10/14/18 10:00 Dose: 40 mg Polyethylene Glycol (Miralax (For Daily Use) -) 17 gm PO DAILY [facility] Last Admin: 10/14/18 10:00 Dose: 17 gm Ranitidine HCl (Zantac -) 300 mg PO DAILY [facility] Last Admin: 10/14/18 10:00 Dose: 300 mg Senna (Senna -) 2 tab PO HS [facility] Last Admin: 10/13/18 21:22 Dose: 2 tab Sodium Chloride ([place] Nasal [place] -) 2 spray NS BID [facility] Last Admin: 10/14/18 10:02 Dose: 2 spray - Objective Vital Signs: Vital Signs Temperature 98.2 F 10/14/18 10:00 Pulse Rate 93 H 10/14/18 10:00 Respiratory Rate 18 10/14/18 10:00 Blood Pressure 127/71 10/14/18 10:00 O2 Sat by Pulse Oximetry (%) 95 10/13/18 20:01 Constitutional: Yes: Well Nourished, Calm Eyes: Yes: WNL HENT: Yes: WNL Cardiovascular: Yes: Regular Rate and Rhythm, S1, S2 Respiratory: Yes: Wheezes (scattered xenia wheezes) Gastrointestinal: Yes: Normal Bowel Sounds, Soft Extremities: Yes: WNL Edema: No Labs: CBC, BMP 10/14/18 06:30 10/14/18 06:30 Problem List - Problems (1) COPD (chronic obstructive pulmonary disease) Code(s): J44.9 - CHRONIC OBSTRUCTIVE PULMONARY DISEASE, UNSPECIFIED Qualifiers: COPD type: COPD with acute exacerbation Qualified Code(s): J44.1 - Chronic obstructive pulmonary disease with (acute) exacerbation (2) Diabetes mellitus Code(s): E11.9 - TYPE 2 DIABETES MELLITUS WITHOUT COMPLICATIONS (3) HLD (hyperlipidemia) Code(s): E78.5 - HYPERLIPIDEMIA, UNSPECIFIED (4) Obstructive sleep apnea Code(s): G47.33 - OBSTRUCTIVE SLEEP APNEA (ADULT) (PEDIATRIC) (5) Acute exacerbation of COPD with asthma Code(s): J44.1 - CHRONIC OBSTRUCTIVE PULMONARY DISEASE W (ACUTE) EXACERBATION; J45.901 - UNSPECIFIED ASTHMA WITH (ACUTE) EXACERBATION Assessment/Plan A/P Acute COPD Exacerbation improvin Acute Bronchitis LV Diastolic Dysfunction Hypercholesterolemia Obstructive Sleep Apnea - Prednisone 60mg po - inhaled bronchodilators - CPAP at night - O2 to keep SpO2 >90% - DVT prophylaxis DR GRAHAM
[2018-10-14] MEDS: predniSONE 20 MG TABLET (UD) PO SCH (14:34)
[2018-10-14] MEDS: MONTELUKAST NA 10 MG TABLET PO SCH (21:26)
[2018-10-14] MEDS: SENNOSIDES 8.6MG TABLET (FP) PO SCH (21:26)
[2018-10-14] MEDS: ALPRAZolam 0.25 MG TABLET PO PRN (21:27)
[2018-10-14] MEDS: ATORVASTATIN CA 20 MG TABLET (FP) PO SCH (21:27)
--- NOTE | 2018-10-15 03:05 | PN ---
Progress Note, Physician Chief Complaint: Pt A&Ox3; less dyspneic. Wants to be able to stop steroids in the future, though her shoulder joints feel better when she is on them, and she breathes better. History of Present Illness: The patient is a 63 year old white female, with a significant PMH of asthma, COPD, hyperlipidemia, hypertension, diastolic CHF, MGUS, peripheral neuropathy, GERD, hypothyroidism, who presents to the emergency department with asthma exacerbation beginning just prior to arrival. The patient states she received Decadron from EMS prior to arrival in the ED. The patient states she has not been feeling well for 2 days and endorses a productive cough with yellow sputum. The patient states she is on prednisone 80 mg for [address] James and a low dose of azithromycin. The patient denies any recent sick contacts or travel. The patient states she did receive a flu shot earlier this year. - Current Medication List Current Medications: Active Medications Al Hydroxide/Mg Hydroxide (Mylanta Oral Suspension -) 30 ml PO Q6H PRN PRN Reason: INDIGESTION Last Admin: 10/03/18 23:01 Dose: 30 ml Albuterol Sulfate (Ventolin 0.083% Nebulizer Soln -) 1 amp NEB Q4H PRN PRN Reason: SHORT OF BREATH/WHEEZING Last Admin: 10/10/18 23:00 Dose: 1 amp Albuterol/Ipratropium (Duoneb -) 1 amp NEB RQID [facility] Last Admin: 10/14/18 20:05 Dose: 1 amp Alprazolam (Xanax -) 0.25 mg PO BID PRN PRN Reason: ANXIETY Last Admin: 10/14/18 21:27 Dose: 0.25 mg Atorvastatin Calcium (Lipitor -) 20 mg PO HS [facility] Last Admin: 10/14/18 21:27 Dose: 20 mg Bacitracin (Bacitracin -) 1 applic TP BID [facility] Last Admin: 10/14/18 21:25 Dose: Not Given Budesonide/Formoterol Fumarate (Symbicort 160/4.5mcg -) 2 puff IH BID [facility] Last Admin: 10/14/18 21:26 Dose: 2 puff Bupropion HCl (Wellbutrin -) 100 mg PO DAILY [facility] Last Admin: 10/14/18 10:00 Dose: 100 mg Cyclobenzaprine HCl (Flexeril -) 10 mg PO Q8H PRN PRN Reason: MUSCLE SPASMS Docusate Sodium (Colace -) 100 mg PO DAILY [facility] Last Admin: 10/14/18 10:00 Dose: 100 mg Ferrous Sulfate (Feosol -) 325 mg PO DAILY [facility] Last Admin: 10/14/18 10:00 Dose: 325 mg Fluticasone Propionate (Flonase -) 2 spray NS BID [facility] Last Admin: 10/14/18 21:26 Dose: 2 spray Guaifenesin (Robitussin Dm -) 10 ml PO Q4H PRN PRN Reason: COUGH Loratadine (Claritin -) 10 mg PO DAILY [facility] Last Admin: 10/14/18 10:00 Dose: 10 mg Montelukast Sodium (Singulair -) 10 mg PO HS [facility] Last Admin: 10/14/18 21:26 Dose: 10 mg Nystatin (Nystatin Oral Suspension -) 500,000 units PO Q6HPO [facility] Last Admin: 10/15/18 00:00 Dose: Not Given Pantoprazole Sodium (Protonix -) 40 mg PO DAILY [facility] Last Admin: 10/14/18 10:00 Dose: 40 mg Polyethylene Glycol (Miralax (For Daily Use) -) 17 gm PO DAILY [facility] Last Admin: 10/14/18 10:00 Dose: 17 gm Prednisone (Deltasone -) 60 mg PO DAILY [facility] Last Admin: 10/14/18 14:34 Dose: 60 mg Ranitidine HCl (Zantac -) 300 mg PO DAILY [facility] Last Admin: 10/14/18 10:00 Dose: 300 mg Senna (Senna -) 2 tab PO HS [facility] Last Admin: 10/14/18 21:26 Dose: 2 tab Sodium Chloride ([place] Nasal [place] -) 2 spray NS BID [facility] Last Admin: 10/14/18 21:26 Dose: 2 spray - Objective Vital Signs: Vital Signs Temperature 98.3 F 10/14/18 21:00 Pulse Rate 100 H 10/14/18 21:00 Respiratory Rate 20 10/14/18 21:00 Blood Pressure 135/75 10/14/18 21:00 O2 Sat by Pulse Oximetry (%) 97 10/14/18 21:00 Constitutional: Yes: Calm Eyes: Yes: WNL HENT: Yes: WNL Neck: Yes: WNL Cardiovascular: Yes: S1, S2 Respiratory: Yes: Diminished, SOB on Exertion Gastrointestinal: Yes: Soft ...Rectal Exam: Yes: Deferred Genitourinary: Yes: Anuria Breast(s): Yes: WNL Musculoskeletal: Yes: Muscle Weakness Extremities: Yes: Cool Edema: No Peripheral Pulses WNL: Yes Integumentary: Yes: Bruising Neurological: Yes: Alert, Oriented, Weakness Psychiatric: Yes: Other (anxeity) Labs: CBC, BMP 10/14/18 06:30 10/14/18 06:30 Problem List - Problems (1) Diastolic CHF Assessment/Plan: ECHO 10/06/2018:normal LVEF and RVEF; trace TR; aneuysmal atrial septum. Continues with episodes of dyspnea with minimal exertion (limited improvement). Limited exercise; pt says she gets tired and dyspneic easily. BUN/Cr, electrolytes, Is and Os, daily weight. TSH WNL. Bronchodilators/steroids/O2 per plating stripper. Diet modification, portion control as aids for weight loss. Code(s): I50.30 - UNSPECIFIED DIASTOLIC (CONGESTIVE) HEART FAILURE (2) Acute bronchitis Assessment/Plan: f/u bronchodilators, steroids, antibiotics with plating stripper. Code(s): J20.9 - ACUTE BRONCHITIS, UNSPECIFIED (3) Diabetes mellitus Assessment/Plan: Elevated glucose (on steroids); HGBA1c 6.1. Code(s): E11.9 - TYPE 2 DIABETES MELLITUS WITHOUT COMPLICATIONS (4) HLD (hyperlipidemia) Assessment/Plan: Lipid profile: LDL cholesterol 73 mg/dL. On atorvastatin. The importance of heart-healthy diet, portion control, and weight loss was discussed in detail. Code(s): E78.5 - HYPERLIPIDEMIA, UNSPECIFIED (5) Hypertension Code(s): I10 - ESSENTIAL (PRIMARY) HYPERTENSION (6) Acute exacerbation of COPD with asthma Code(s): J44.1 - CHRONIC OBSTRUCTIVE PULMONARY DISEASE W (ACUTE) EXACERBATION; J45.901 - UNSPECIFIED ASTHMA WITH (ACUTE) EXACERBATION (7) MGUS (monoclonal gammopathy of unknown significance) Code(s): D47.2 - MONOCLONAL GAMMOPATHY (8) [place] cardiac risk >20% in next 10 years Assessment/Plan: Stress dobutamine mibi 10/2017: no ischemia, but suboptimal HR reached. Pt c/o increasing episodes of dyspnea she thinks are not related to asthma. Episode of "bad heartburn" at rest recently, lasting about an hour, with some response to Prilosec. Discussed possibility of coronary angiogram with her; she is still considering it. Code(s): Z91.89 - OTH PERSONAL RISK FACTORS, NOT ELSEWHERE CLASSIFIED (9) Asthma Code(s): J45.909 - UNSPECIFIED ASTHMA, UNCOMPLICATED Qualifiers: Asthma severity: moderate Asthma persistence: persistent Asthma complication type: with acute exacerbation Qualified Code(s): J45.41 - Moderate persistent asthma with (acute) exacerbation (10) Anxiety Assessment/Plan: Her poor health and "over 400 hospital admissions" has her afraid and depressed as she gets older; "I want to be around for my grandchildren". She is on Wellbutrin. Code(s): F41.9 - ANXIETY DISORDER, UNSPECIFIED (11) Sleep apnea Assessment/Plan: Using mask for CPAP, and says it works well; she hopes to have it for home use. Code(s): G47.30 - SLEEP APNEA, UNSPECIFIED
[2018-10-15] MEDS: NYSTATIN 500,000 UNITS/5 ML SUSPENSION PO SCH ×3 (05:23→12:19)
--- NOTE | 2018-10-15 06:34 | DS ---
Physical Examination Vital Signs: Vital Signs Temperature 97.5 F L 10/15/18 05:52 Pulse Rate 88 10/15/18 05:52 Respiratory Rate 20 10/15/18 05:52 Blood Pressure 130/84 10/15/18 05:52 O2 Sat by Pulse Oximetry (%) 97 10/14/18 21:00 Findings/Remarks: feels well ready to go home; on po 60 mg/day steroids to taper slowly with 10 mg every 3-4 days d/w pt scripts; f/u needed; RTER if worse or recurrent c/o; d/w pt possible SE of lab assistant tx with steroids incl but not limited to HTN DM OP PUD weight gain, cushingoid bonnie; myopathy, mood changes. Constitutional: Yes: No Distress, Calm Eyes: Yes: Conjunctiva Clear HENT: Yes: Atraumatic Neck: Yes: Supple Cardiovascular: Yes: Regular Rate and Rhythm Respiratory: Yes: CTA Bilaterally Gastrointestinal: Yes: Soft. No: Distention Renal/: No: CVA Tenderness - Left, CVA Tenderness - Right Musculoskeletal: No: Joint Stiffness, Joint Swelling Extremities: No: Cold, Cool, Cyanosis Edema: No Integumentary: No: Rash, Venous Stasis Changes Neurological: Yes: WNL, Alert, Oriented ...Motor Strength: WNL Psychiatric: Yes: WNL, Alert, Oriented. No: Agitated, Suicidal Ideation Labs: CBC, BMP 10/14/18 06:30 10/14/18 06:30 Discharge Summary Reason For Visit: CHRONIC OBSTRUCTIVE ASTHMA WITH EXACERBATION Current Active Problems Acute bronchitis (Acute) Anxiety (Acute) COPD (chronic obstructive pulmonary disease) (Acute) Diabetes mellitus (Acute) Diastolic CHF (Acute) [place] cardiac risk >20% in next 10 years (Acute) GERD (gastroesophageal reflux disease) (Acute) HLD (hyperlipidemia) (Acute) Hypertension (Acute) Hypoalbuminemia (Acute) Obstructive sleep apnea (Acute) Rotator cuff disorder (Acute) Sleep apnea (Acute) Thrush (Acute) Procedures: Principal: admitted with PNA and acute on chronic COPD exac; Other Procedures: n by pulmonary, also cardiology; started on IV ATB, IV steroids; nebs O2 and bipap per pulm; developed nose bleeds seen by ENT; improved with above. Hospital Course: completed ATB course; switched to po steroids; DC home and f/u as advised; take meds as prescribed. Condition: Improved - Instructions Diet, Activity, Other Instructions: f/u PCP and pulmonary in 1-2 weeks; f/u cardiology, ENT in 2-4 weeks; O2 NC continuous, nebs, inhalers and Bipap as ordered; taper steroids as instructed RTER if worse or recurrent c/o; health maintenance per PCP outpt (pap DRAFTER GI colonoscopy mammogram) Referrals: Amarjit Burrell MD [Primary Care Provider] - Adithya Doran MD [Staff Physician] - Joel Arana MD [Staff Physician] - Artie Leos MD [Staff Physician] - Disposition: VNS/HOME HEALTH CARE - Home Medications Comprehensive Discharge Medication List: Ambulatory Orders Acetaminophen [Tylenol Extra Strength] 500 mg PO PRN PRN 09/29/18 Albuterol Sulfate Inhaler - [Ventolin Hfa Inhaler -] 1 - 2 inh PO QID PRN Atorvastatin Calcium [Lipitor] 20 mg PO DAILY 09/29/18 Budesonide/Formeterol Fumarate [SYMBICORT 160/4.5mcg -] 1 inh PO BID 09/29/18 Bupropion HCl 100 mg PO DAILY 09/29/18 Cetirizine HCl 10 mg PO DAILY 09/29/18 Cyclosporine [Restasis] 1 each OP DAILY 09/29/18 Famotidine [Pepcid] 40 mg PO DAILY 09/29/18 Fluticasone Propionate 2 spray NS BID 09/29/18 Ipratropium/Albuterol Sulfate [Iprat-Albut 0.5-3(2.5) mg/3 ml] 1 vial IH Q4H Lorazepam 1 mg PO PRN PRN 09/29/18 Montelukast Sodium [Singulair] 10 mg PO DAILY 09/29/18 predniSONE [Deltasone -] 10 mg PO ASDIR 09/29/18
[2018-10-15] MEDS: ALBUTEROL SO4 2.5/IPRATROPIUM 0.5 INH SOL 3 ML VIAL.NEB. NEB SCH ×2 (07:15→11:05)
--- NOTE | 2018-10-15 09:48 | PN ---
Progress Note, Physician History of Present Illness: The patient is a 63 year old white female, with a significant PMH of asthma, COPD, hyperlipidemia, hypertension, CHF (diastolic dysfunction), MGUS, peripheral neuropathy, GERD, hypothyroidism, who presents to the emergency department with asthma exacerbation beginning just prior to arrival. The patient states she received Decadron from EMS prior to arrival in the ED. The patient states she has not been feeling well for 2 days and endorses a productive cough with yellow sputum. The patient states she is on prednisone 80 mg for [address] James and a low dose of azithromycin. The patient denies any recent sick contacts or travel. The patient states she did receive a flu shot earlier this year. - Current Medication List Current Medications: Active Medications Al Hydroxide/Mg Hydroxide (Mylanta Oral Suspension -) 30 ml PO Q6H PRN PRN Reason: INDIGESTION Last Admin: 10/03/18 23:01 Dose: 30 ml Albuterol Sulfate (Ventolin 0.083% Nebulizer Soln -) 1 amp NEB Q4H PRN PRN Reason: SHORT OF BREATH/WHEEZING Last Admin: 10/10/18 23:00 Dose: 1 amp Albuterol/Ipratropium (Duoneb -) 1 amp NEB RQID [facility] Last Admin: 10/15/18 07:15 Dose: 1 amp Alprazolam (Xanax -) 0.25 mg PO BID PRN PRN Reason: ANXIETY Last Admin: 10/14/18 21:27 Dose: 0.25 mg Atorvastatin Calcium (Lipitor -) 20 mg PO HS [facility] Last Admin: 10/14/18 21:27 Dose: 20 mg Bacitracin (Bacitracin -) 1 applic TP BID [facility] Last Admin: 10/14/18 21:25 Dose: Not Given Budesonide/Formoterol Fumarate (Symbicort 160/4.5mcg -) 2 puff IH BID [facility] Last Admin: 10/14/18 21:26 Dose: 2 puff Bupropion HCl (Wellbutrin -) 100 mg PO DAILY [facility] Last Admin: 10/14/18 10:00 Dose: 100 mg Cyclobenzaprine HCl (Flexeril -) 10 mg PO Q8H PRN PRN Reason: MUSCLE SPASMS Docusate Sodium (Colace -) 100 mg PO DAILY [facility] Last Admin: 10/14/18 10:00 Dose: 100 mg Ferrous Sulfate (Feosol -) 325 mg PO DAILY [facility] Last Admin: 10/14/18 10:00 Dose: 325 mg Fluticasone Propionate (Flonase -) 2 spray NS BID [facility] Last Admin: 10/14/18 21:26 Dose: 2 spray Guaifenesin (Robitussin Dm -) 10 ml PO Q4H PRN PRN Reason: COUGH Loratadine (Claritin -) 10 mg PO DAILY [facility] Last Admin: 10/14/18 10:00 Dose: 10 mg Montelukast Sodium (Singulair -) 10 mg PO HS [facility] Last Admin: 10/14/18 21:26 Dose: 10 mg Nystatin (Nystatin Oral Suspension -) 500,000 units PO Q6HPO [facility] Last Admin: 10/15/18 05:23 Dose: Not Given Pantoprazole Sodium (Protonix -) 40 mg PO DAILY [facility] Last Admin: 10/14/18 10:00 Dose: 40 mg Polyethylene Glycol (Miralax (For Daily Use) -) 17 gm PO DAILY [facility] Last Admin: 10/14/18 10:00 Dose: 17 gm Prednisone (Deltasone -) 60 mg PO DAILY [facility] Last Admin: 10/14/18 14:34 Dose: 60 mg Ranitidine HCl (Zantac -) 300 mg PO DAILY [facility] Last Admin: 10/14/18 10:00 Dose: 300 mg Senna (Senna -) 2 tab PO HS [facility] Last Admin: 10/14/18 21:26 Dose: 2 tab Sodium Chloride ([place] Nasal Stewart -) 2 spray NS BID [facility] Last Admin: 10/14/18 21:26 Dose: 2 spray - Objective Vital Signs: Vital Signs Temperature 97.5 F L 10/15/18 05:52 Pulse Rate 88 10/15/18 05:52 Respiratory Rate 20 10/15/18 05:52 Blood Pressure 130/84 10/15/18 05:52 O2 Sat by Pulse Oximetry (%) 97 10/14/18 21:00 Eyes: Yes: WNL, Conjunctiva Clear, EOM Intact HENT: Yes: WNL, Atraumatic, Normocephalic Neck: Yes: WNL, Supple, Trachea Midline Cardiovascular: Yes: WNL, Regular Rate and Rhythm Respiratory: Yes: WNL, Regular, CTA Bilaterally Gastrointestinal: Yes: WNL, Normal Bowel Sounds Genitourinary: Yes: WNL Musculoskeletal: Yes: WNL Extremities: Yes: WNL Edema: No Integumentary: Yes: WNL Neurological: Yes: WNL, Alert, Oriented ...Motor Strength: WNL Psychiatric: Yes: WNL Labs: CBC, BMP 10/14/18 06:30 10/14/18 06:30 Assessment/Plan - Problems (1) Diastolic CHF Assessment/Plan: ECHO 10/06/2018:normal LVEF and RVEF; trace TR; aneuysmal atrial septum. Continues with episodes of dyspnea with minimal exertion (limited improvement). Limited exercise; pt says she gets tired and dyspneic easily. BUN/Cr, electrolytes, Is and Os, daily weight. TSH WNL. Bronchodilators/steroids/O2 per display designer. Diet modification, portion control as aids for weight loss. Code(s): I50.30 - UNSPECIFIED DIASTOLIC (CONGESTIVE) HEART FAILURE (2) Acute bronchitis Assessment/Plan: f/u bronchodilators, steroids, antibiotics with display designer. Code(s): J20.9 - ACUTE BRONCHITIS, UNSPECIFIED (3) Diabetes mellitus Assessment/Plan: Elevated glucose (on steroids); HGBA1c 6.1. Code(s): E11.9 - TYPE 2 DIABETES MELLITUS WITHOUT COMPLICATIONS (4) HLD (hyperlipidemia) Assessment/Plan: Lipid profile: LDL cholesterol 73 mg/dL. On atorvastatin. The importance of heart-healthy diet, portion control, and weight loss was discussed in detail. Code(s): E78.5 - HYPERLIPIDEMIA, UNSPECIFIED (5) Hypertension Code(s): I10 - ESSENTIAL (PRIMARY) HYPERTENSION (6) Acute exacerbation of COPD with asthma Code(s): J44.1 - CHRONIC OBSTRUCTIVE PULMONARY DISEASE W (ACUTE) EXACERBATION; J45.901 - UNSPECIFIED ASTHMA WITH (ACUTE) EXACERBATION (7) MGUS (monoclonal gammopathy of unknown significance) Code(s): D47.2 - MONOCLONAL GAMMOPATHY (8) [place] cardiac risk >20% in next 10 years Assessment/Plan: Stress dobutamine mibi 10/2017: no ischemia, but suboptimal HR reached. Code(s): Z91.89 - OTH PERSONAL RISK FACTORS, NOT ELSEWHERE CLASSIFIED (9) Asthma Code(s): J45.909 - UNSPECIFIED ASTHMA, UNCOMPLICATED Qualifiers: Asthma severity: moderate Asthma persistence: persistent Asthma complication type: with acute exacerbation Qualified Code(s): J45.41 - Moderate persistent asthma with (acute) exacerbation (10) Anxiety Assessment/Plan: Her poor health and "over 400 hospital admissions" has her afraid and depressed as she gets older; "I want to be around for my grandchildren". She is on Wellbutrin. Code(s): F41.9 - ANXIETY DISORDER, UNSPECIFIED (11) Sleep apnea Assessment/Plan: Using mask for CPAP, and says it works well; she hopes to have it for home use. Code(s): G47.30 - SLEEP APNEA, UNSPECIFIED
[2018-10-15] MEDS: BACITRACIN 15 GM TUBE TOPICAL OINTMENT TP SCH (10:03)
[2018-10-15] MEDS: RANITIDINE HCL 150 MG TABLET (FP) PO SCH (10:06)
[2018-10-15] MEDS: PANTOPRAZOLE 40 MG TABLET (FP) PO SCH (10:06)
[2018-10-15] MEDS: DOCUSATE SODIUM 100 MG CAPSULE (FP) PO SCH (10:06)
[2018-10-15] MEDS: predniSONE 20 MG TABLET (UD) PO SCH (10:06)
[2018-10-15] MEDS: LORATADINE 10 MG TABLET PO SCH (10:06)
[2018-10-15] MEDS: buPROPion HCL 100 MG TABLET PO SCH (10:07)
[2018-10-15] MEDS: POLYETHYLENE GLYCOL 3350 119 GM BTL PO SCH (10:07)
[2018-10-15] MEDS: FERROUS SO4 325 MG TABLET (FP) PO SCH (10:07)
[2018-10-15] MEDS: SODIUM CHLORIDE NASAL SPRAY 44 ML BOTTLE NS SCH (10:08)
[2018-10-15] MEDS: BUDESONIDE/FORMETEROL FUMARATE 160/4.5 mcg INHALER IH SCH (10:08)
[2018-10-15] MEDS: FLUTICASONE PROP 0.05% 16 GM NASAL SPRAY NS SCH (10:08)
[2018-10-15] MEDS: ALPRAZolam 0.25 MG TABLET PO PRN (11:00)
[2018-10-15 14:51] VITALS: BP 116/75; PULSE 103; TEMP 98
== END 2018-10-15 16:11 | disposition home health service (06) | DRG 202 ==
LOC: JER 11:08 → JERBED 14:12 → J8W 18:56
PROVIDERS: ADMIT Specialist; ATTEND Specialist
DX: J45.41 Moderate persistent asthma with (acute) exacerbation (principal); J44.1 Chronic obstructive pulmonary disease with (acute) exacerbation; B37.0 Candidal stomatitis; I50.32 Chronic diastolic (congestive) heart failure; M35.1 Other overlap syndromes; J44.0 Chronic obstructive pulmonary disease with (acute) lower respiratory infection; E78.5 Hyperlipidemia, unspecified; I11.0 Hypertensive heart disease with heart failure; K21.9 Gastro-esophageal reflux disease without esophagitis; E03.9 Hypothyroidism, unspecified; G62.9 Polyneuropathy, unspecified; D47.2 Monoclonal gammopathy; J20.9 Acute bronchitis, unspecified; Z88.0 Allergy status to penicillin; Z99.81 Dependence on supplemental oxygen; F41.9 Anxiety disorder, unspecified; R04.0 Epistaxis; E66.9 Obesity, unspecified; G47.33 Obstructive sleep apnea (adult) (pediatric); Z68.27 Body mass index [BMI] 27.0-27.9, adult
CPT/HCPCS: 36415; 71045-TC-FY; 80048; 80053; 80061; 83036; 83540; 83721; 84443; 84484; 85025; 85027; 87040; 87070; 87205; 87804; 87807; 87899; 93005; 93010; 93306-TC; 94150; 94640; 94660; 99284-25; G0480; J1644

== ENCOUNTER 2018-12-20 10:05 | Day surgery (SDC) | payer OTHER ==
[2018-12-19 15:05] VITALS: BMI 28.7
[2018-12-20 11:32] VITALS: TEMP 97.9
[2018-12-20 12:18] VITALS: BP 142/84; PULSE 84
--- NOTE | 2018-12-21 16:49 | PATH ---
Surgical Pathology Report Patient Name: KRISSY LEAHY [facility]. Rec. #: [id number] /Age/Gender: 1955 (Age: 63) / F Account: [id number] Location: U-ENDOSCOPY Taken: 12/20/2018 Received: 12/20/2018 Reported: 12/21/2018 Physicians: Tito Hidalgo M.D. Specimen(s) Received POLYP SIGMOID COLON Clinical History Polyp, diverticulosis Final Diagnosis SIGMOID COLON POLYP, POLYPECTOMY: TUBULAR ADENOMA. Electronically Signed Maribell Tai M.D. Gross Description Received in formalin, labeled "biopsy sigmoid colon polyp" are 2 scales, irregular portions of soft tissue measuring 0.3 cm. in greatest dimension. The specimen is submitted in toto in one cassette. LILIAM/12/20/2018 kya/12/20/2018
== END 2018-12-20 12:19 | disposition home or self-care (01) ==
LOC: JASU-ENDO 10:05
PROVIDERS: ATTEND Internal Medicine Gastroenterology
PROC: 0DBN8ZX Excision of Sigmoid Colon, Via Natural or Artificial Opening Endoscopic, Diagnostic (ICD-10-PCS; principal; 2018-12-20 11:15)
DX: Z86.010 Personal history of colon polyps (principal); D12.5 Benign neoplasm of sigmoid colon
CPT/HCPCS: 88305-TC

== ENCOUNTER 2019-04-17 00:26 | Emergency (ER) | payer OTHER ==
[2019-04-17 00:48] VITALS: BP 134/83; PULSE 84; TEMP 97.3; BMI 29.0
--- NOTE | 2019-04-17 01:21 | PDOC ---
History of Present Illness - General Chief Complaint: Back Pain Stated Complaint: BACK PAIN Time Seen by Provider: 04/17/19 01:21 History Source: Patient Exam Limitations: No Limitations - History of Present Illness Initial Comments: Ana Laura Gomez is a 63 year old female, with a significant PMH of chronic back pain, asthma, COPD, hyperlipidemia, hypertension, CHF (diastolic dysfunction), MGUS, peripheral neuropathy, GERD, hypothyroidism, who [facility] which she states is chronic was much worse today than it usually is. She states she is seen by a pain management doctor for this and she recently had an epidural which lasted well for 4 days but then the pain returned. She is on a chronic dose of 7.5 mg of prednisone daily as well for her back pain. She denies recent fevers, chills, or infections. She also denies any sensory abnormalities stating this is just lower back pain and some leg weakness. She denies any loss of bowel or bladder. Allergies: Quinolones, Penicillins, [Fluoroquinolones] Social History: Former Smoker PSH: numerous foot surgeries, right rotator cuff PCP: Dr Burrell Pulmonary: Dr James Past History - Past Medical History Allergies/Adverse Reactions: Allergies Allergy/AdvReac Type Severity Reaction Status Date / Time Quinolones Allergy Severe Difficulty Verified 09/29/18 11:10 Breathing Penicillins Allergy Intermediate Rash Verified 09/29/18 11:10 fluoroquinolones Allergy Severe Difficulty Uncoded 09/29/18 11:10 Breathing Home Medications: Ambulatory Orders Albuterol Sulfate Inhaler - [Ventolin HFA Inhaler -] 1 - 2 inh PO QID PRN Bupropion HCl 100 mg PO DAILY 09/29/18 Ipratropium/Albuterol Sulfate [Iprat-Albut 0.5-3(2.5) mg/3 ml] 1 vial IH Q4H PRN 09/29/18 Montelukast Sodium [Singulair] 10 mg PO DAILY 09/29/18 Albuterol 0.083% Nebulizer Yadira [Ventolin 0.083% Nebulizer Soln -] 1 amp NEB Q4H PRN amp 10/15/18 Atorvastatin Ca [Lipitor] 20 mg PO HS 12/20/18 Budesonide [Pulmicort 0.25 mg Nebulizer -] 1 vial .ROUTE PRN PRN 03/19/19 Cyclosporine [Restasis] 1 each OP BID 12/20/18 Fluticasone Propionate [24 Hour Allergy] 2 spray NS DAILY 12/20/18 predniSONE [Deltasone -] 25 mg PO DAILY 12/20/18 Anemia: No Asthma: Yes Cancer: No Cardiac Disorders: No CVA: No COPD: Yes (ON CPAP) CHF: No Dementia: No 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) GI Disorders: No Disorders: No HTN: Yes Hypercholesterolemia: Yes Liver Disease: No Seizures: No Thyroid Disease: No Other medical history: L SHOULDER FX, - Surgical History Abdominal Surgery: No Appendectomy: No Cardiac Surgery: No Cholecystectomy: No Lung Surgery: No Neurologic Surgery: No Orthopedic Surgery: Yes (numerous foot surgeries, right rotator cuff) - Immunization History Immunization Up to Date: No - Suicide/Smoking/Psychosocial Hx Smoking History: Never smoked Have you smoked in the past 12 months: No Number of Cigarettes Smoked Daily: 1 If you are a former smoker, when did you quit?: 02/17 'Breaking Loose' booklet given: 02/27/16 Hx Alcohol Use: No Drug/Substance Use Hx: No Substance Use Type: None Hx Substance Use Treatment: No Review of Systems - Review of Systems Able to Perform ROS?: Yes Comments:: CONSTITUTIONAL: Absent: fever, no chills, no fatigue EYES: Absent: visual changes ENT: Absent: ear pain, no sore throat CARDIOVASCULAR: Absent: chest pain, no palpitations RESPIRATORY: Absent: cough, no SOB GI: Absent: abdominal pain, no nausea, no vomiting, no constipation, no diarrhea GENITOURINARY: Absent: dysuria, no frequency, no hematuria MUSKULOSKELETAL: Present: Back pain Absent: no arthralgia, no myalgia SKIN: Absent: rash NEURO: Absent: headache *Physical Exam - Vital Signs Last Vital Signs Temp Pulse Resp BP Pulse Ox 97.3 F L 84 134/83 96 04/17/19 00:44 04/17/19 00:44 04/17/19 00:44 04/17/19 01:08 - Physical Exam Comments: GENERAL: Well-appearing, well-nourished. Moderate distress. HEENT: Normocephalic, atraumatic. PERRL, EOM intact. CARDIOVASCULAR: Normal S1, S2. Regular rate and rhythm. PULMONARY: No evidence of respiratory distress. Lungs clear to auscultation bilaterally. No wheezing, rales or rhonchi. ABDOMEN: Soft, non-distended, non-tender. BACK: There is overall lower back TTP. No vertebral TTP. Mainly para-spinal TTP. MUSCULOSKELETAL Normal range of motion at all joints. No bony deformities or tenderness. No CVA tenderness. EXTREMITIES: Normal ROM in all four extremities. No gross deformities. SKIN: Warm, dry. No rash NEUROLOGICAL: No focal neurological deficits. ED Treatment Course - LABORATORY CBC & Chemistry Diagram: 04/17/19 02:01 04/17/19 02:01 Medical Decision Making - Medical Decision Making Ana Laura Gomez is a 63 year old female, with a significant PMH of chronic back pain, asthma, COPD, hyperlipidemia, hypertension, CHF (diastolic dysfunction), MGUS, peripheral neuropathy, GERD, hypothyroidism, who [facility] her [facility] pain which she states is chronic was much worse today than it usually is. She states she is seen by a pain management doctor for this and she recently had an epidural which lasted well for 4 days but then the pain returned. She is on a chronic dose of 7.5 mg of prednisone daily as well for her back pain. She denies recent fevers, chills, or infections. She also denies any sensory abnormalities stating this is just lower back pain and some leg weakness. She denies any loss of bowel or bladder. Vital Signs Temp Pulse Resp BP Pulse Ox 97.3 F L 84 134/83 96 04/17/19 00:44 04/17/19 00:44 04/17/19 00:44 04/17/19 01:08 MDM: Patient presents with worsening of her chronic back pain which she states is similar to how her back pain always feels. She denies any fevers, loss of bowel or bladder or other concerning signs. Normal Rectal tone. Plan: Labs, urine, IV hydration, analgesia, neuro and pain management doc FU. Labs: Unremarkable Urine: Clean Re-assessment: Patient feels better after meds and requests to be discharged. Disposition: Will send her home w pain management and neuro FU *DC/Admit/Observation/Transfer Diagnosis at time of Disposition: Back pain Qualifiers: Back pain location: low back pain Chronicity: chronic Back pain laterality: bilateral Sciatica presence: unspecified whether sciatica present Qualified Code (s): M54.5 - Low back pain; G89.29 - Other chronic pain - Discharge Dispostion Disposition: HOME Condition at time of disposition: Improved Decision to Admit order: No - Referrals Referrals: Kaity Estrada MD [Staff Physician] - Aravind Edwards DO [Staff Physician] - Jose Camacho MD [Non Staff, Medical] - - Patient Instructions Printed Discharge Instructions: Low Back Pain Additional Instructions: Please make sure to call up the neurologist, assembler musical equipment, and Pain management doctors we are referring you to in the next 3 to 5 days. Come back to the ER immediately if your pain worsens or you experience any other new or worsening concerns. Print Language: MONGOLIAN - Post Discharge Activity
[2019-04-17] MEDS ORDERED: SODIUM CHLORIDE 1,000 ML IV STA (01:31)
[2019-04-17] MEDS ORDERED: ACETAMINOPHEN 325 MG TABLET (FP) PO ONE (01:31)
[2019-04-17] MEDS ORDERED: METHOCARBAMOL 500 MG TABLET PO ONE (01:32)
[2019-04-17] MEDS ORDERED: LIDOCAINE 5% TOPICAL PATCH TP ONE (01:32)
[2019-04-17] MEDS ORDERED: SODIUM CHLORIDE 0.9% 500 ML INFUS.BAG IV ONE (01:33)
[2019-04-17] MEDS ORDERED: ACETAMINOPHEN 325 MG TABLET (FP) ONE (01:35)
[2019-04-17] MEDS ORDERED: LIDOCAINE 5% TOPICAL PATCH ONE (01:36)
[2019-04-17] MEDS ORDERED: METHOCARBAMOL 500 MG TABLET ONE (01:36)
--- NOTE | 2019-04-17 02:03 | PDOC ---
Documentation entered by Jose Torres SCRIBE, acting as scribe for Kate Vasquez MD. Kate Vasquez MD: This documentation has been prepared by the Melissa prieto Xhesika, SCRIBE, under my direction and personally reviewed by me in its entirety. I confirm that the documentation accurately reflects all work, treatment, procedures, and medical decision making performed by me. Attending Attestation - Resident Resident Name: Shaquille Coker - ED Attending Attestation I have performed the following: I have examined & evaluated the patient, The case was reviewed & discussed with the resident, I agree w/resident's findings & plan - HPI HPI: 04/17/19 01:50 The patient is a 64 year old female, with a significant PMH of asthma, COPD, hyperlipidemia, hypertension, CHF (diastolic dysfunction), MGUS, peripheral neuropathy, GERD, hypothyroidism, and chronic back pain who presents to the emergency department with worsening back pain. The patient states she sees a pain management doctor and gets steroids and epidural with relief of symptoms for 4 days before the pain reoccurs. Patient states she takes prednisone daily for her back pain with mild to no relief of symptoms. The patient denies chest pain, headache and dizziness. Denies fever, chills, nausea, vomit, diarrhea and constipation. Denies dysuria, frequency, urgency and hematuria. Allergies: Quinolones, Penicillins, [Fluoroquinolones] Social History: Former Smoker PCP: Dr Burrell Pulmonary: Dr James - Physicial Exam PE: 04/17/19 01:50 GENERAL: Awake, alert, and fully oriented, in no acute distress HEAD: No signs of trauma EYES: PERRLA, EOMI, sclera anicteric, conjunctiva clear ENT: Auricles normal inspection, hearing grossly normal, nares patent, oropharynx clear without exudates. Moist mucosa NECK: Normal ROM, supple, no lymphadenopathy, JVD, or masses LUNGS: Breath sounds equal, clear to auscultation bilaterally. No wheezes, and no crackles HEART: Regular rate and rhythm, normal S1 and S2, no murmurs, rubs or gallops ABDOMEN: Soft, nontender, normoactive bowel sounds. No guarding, no rebound. No masses EXTREMITIES: Normal range of motion, no edema. No clubbing or cyanosis. No cords, erythema, or tenderness NEUROLOGICAL: Cranial nerves II through XII grossly intact. Normal speech SKIN: Warm, Dry, normal turgor, no rashes or lesions noted. - Medical Decision Making 04/17/19 02:00 Pt comes with back pain and states that she wanted to get up to go to the bathroom and she was unable to move due to back pain. She is able to move all her extremities. She has no weakness in her legs or arms. She has chronic pains. She states that she recently got an epidural and that the epidurals are making her worse. 04/17/19 02:01 Pt will follow with PMD; she was advised to get an MRI as an outpatient. 04/17/19 02:02 Pt will be treated with muscle relaxants in the ER. 04/17/19 02:10 Basic labs pending. 04/17/19 02:15 Pt will be discharged once her results are back. Heart Score/ECG Review - ECG Intrepretation Rhythm: Regular Rhythm - P and [place] Prominent R with upright T in V1 (true posterior [place]): No Delta Wave(s) Present: No WPW: No - QRS Poor R Wave Progression: No Q Wave Present: No - ST and T Early Repolarization: No Non Specific ST-T Wave changes: No Flattened T Waves: No Prolonged Q-T Interval: No - ECG Impressions Normal ECG: Yes Non-specific ST Elevation: No Ischemic Changes: No
[2019-04-17 02:09] LABS: BASO % 0.5 % (0-2.0); EOS % 1.1 % (0-4.5); HEMATOCRIT 35.1 % (32.4-45.2); HEMOGLOBIN 11.5 GM/dL (10.7-15.3); MCH 24.6 pg (25.7-33.7); MCHC 32.8 g/dl (32.0-36.0); MEAN CELL VOLUME 75.1 fl (80-96); MEAN PLT VOLUME 7.5 fl (7.5-11.1); MONO % 9.5 % (3.8-10.2); NEUT % 65.9 % (42.8-82.8); PLATELET COUNT 357 K/MM3 (134-434); RBC 4.68 M/mm3 (3.60-5.2); RDW 17.8 % (11.6-15.6); WHITE BLOOD COUNT 11.2 K/mm3 (4.0-10.0)
[2019-04-17 02:43] LABS: ALBUMIN 3.4 g/dl (3.4-5.0); BILIRUBIN,TOTAL 0.1 mg/dL (0.2-1); BLOOD UREA NITROGEN 15.1 mg/dL (7-18); CALCIUM 8.8 mg/dL (8.5-10.1); CREATININE 0.7 mg/dL (0.55-1.3); TOT PROT 6.9 g/dl (6.4-8.2)
[2019-04-17 03:14] LABS: EPI CELLS 2.6 /HPF (0-5/HPF); HYALINE CASTS 1 /lpf (0-8); URINE APPEARANCE CLEAR; URINE BACTERIA 16.4 /hpf (NEGATIVE); URINE BILIRUBIN NEGATIVE (NEGATIVE); URINE COLOR YELLOW; URINE GLUCOSE (UA) NEGATIVE (NEGATIVE); URINE KETONE NEGATIVE (NEGATIVE); URINE LEUK ESTERASE TRACE (NEGATIVE); URINE NITRITE NEGATIVE (NEGATIVE); URINE PROTEIN NEGATIVE (NEGATIVE); URINE RBC 4 /hpf (0-4); URINE UROBILINOGEN 0.2 mg/dL (0.2-1.0); URINE WBC 2 /hpf (0-5)
--- NOTE | 2019-04-17 09:56 | EKG ---
Test Reason : Blood Pressure : / mmHG Vent. Rate : 077 BPM Atrial Rate : 077 BPM P-R Int : 178 ms QRS Dur : 084 ms QT Int : 406 ms P-R-T Axes : 039 022 060 degrees QTc Int : 459 ms NORMAL SINUS RHYTHM NORMAL ECG WHEN COMPARED WITH ECG OF 05-OCT-2018 09:26, NO SIGNIFICANT CHANGE WAS FOUND Confirmed by SUDHA TAPIA MD ([id number]) on 04/17/2019 9:56:09 AM Referred By: Confirmed By:SUDHA TAPIA MD
[2019-04-17] MEDS ORDERED: LIDOCAINE PATCH REMOVAL MC SCH (22:00)
== END 2019-04-17 03:54 | disposition home or self-care (01) ==
LOC: JER 00:26
DX: M54.5 Low back pain (principal); G89.29 Other chronic pain; I11.0 Hypertensive heart disease with heart failure; I50.9 Heart failure, unspecified; J44.9 Chronic obstructive pulmonary disease, unspecified; J45.909 Unspecified asthma, uncomplicated; E78.5 Hyperlipidemia, unspecified; G62.9 Polyneuropathy, unspecified; E03.9 Hypothyroidism, unspecified
CPT/HCPCS: 36415; 80053; 81003; 85025; 93005; 93010; 99283-25

== ENCOUNTER 2019-10-19 11:39 | Emergency (ER) | payer OTHER ==
[2019-10-19 11:51] VITALS: BP 142/82; PULSE 96; TEMP 98.2; BMI 28.5
[2019-10-19] MEDS ORDERED: NAPROXEN 500 MG TABLET PO ONE (12:32)
[2019-10-19] MEDS ORDERED: METHOCARBAMOL 500 MG TABLET PO ONE (12:32)
[2019-10-19] MEDS ORDERED: NAPROXEN 500 MG TABLET ONE (12:33)
[2019-10-19] MEDS ORDERED: METHOCARBAMOL 500 MG TABLET ONE (12:33)
--- NOTE | 2019-10-19 12:38 | PDOC ---
History of Present Illness - General Chief Complaint: Pain, Acute Stated Complaint: PAIN Time Seen by Provider: 10/19/19 12:12 History Source: Patient Exam Limitations: Clinical Condition - History of Present Illness Initial Comments: 10/19/19 12:33 Patient with past medical history of COPD and hypertension presented with complaint of 3 weeks history of persistent redness to left lower leg status post insect bite 3 weeks ago and scratching it. Patient report redness started getting better and started getting worse again with localized redness to anterior aspect of distal left leg. Patient also reports 3-day history of pain to lateral aspect of left thigh which is worse with ambulation and getting up from sitting position or laying position. Denies lower back pain. Denies trauma or injury to leg. Denies numbness or tingling sensation. Patient did not take anything for symptoms Is this a multiple visit Asthma Patient?: No Timing/Duration: other (3 weeks) Past History - Past Medical History Allergies/Adverse Reactions: Allergies Allergy/AdvReac Type Severity Reaction Status Date / Time Quinolones Allergy Severe Difficulty Verified 09/29/18 11:10 Breathing Penicillins Allergy Intermediate Rash Verified 09/29/18 11:10 fluoroquinolones Allergy Severe Difficulty Uncoded 09/29/18 11:10 Breathing Home Medications: Ambulatory Orders Albuterol Sulfate Inhaler - [Ventolin HFA Inhaler -] 1 - 2 inh PO QID PRN Bupropion HCl 100 mg PO DAILY 09/29/18 Ipratropium/Albuterol Sulfate [Iprat-Albut 0.5-3(2.5) mg/3 ml] 1 vial IH Q4H PRN 09/29/18 Montelukast Sodium [Singulair] 10 mg PO DAILY 09/29/18 Albuterol 0.083% Nebulizer Yadira [Ventolin 0.083% Nebulizer Soln -] 1 amp NEB Q4H PRN amp 10/15/18 Atorvastatin Ca [Lipitor] 20 mg PO HS 12/20/18 Budesonide [Pulmicort 0.25 mg Nebulizer -] 1 vial .ROUTE PRN PRN 12/20/18 Cyclosporine [Restasis] 1 each OP BID 12/20/18 Fluticasone Propionate [24 Hour Allergy] 2 spray NS DAILY 12/20/18 predniSONE [Deltasone -] 25 mg PO DAILY 12/20/18 Gabapentin 300 mg PO QID #120 capsule 04/21/19 Gabapentin 300 mg PO TID #90 capsule 06/12/19 Methocarbamol [Robaxin -] 500 mg PO BID #14 tablet 10/19/19 Naproxen 500 mg PO BID PRN #20 tablet 10/19/19 Sulfamethoxazole/Trimethoprim [Bactrim Ds -] 1 tab PO BID #14 tablet 10/19/19 Anemia: No Asthma: Yes Cancer: No Cardiac Disorders: No CVA: No COPD: Yes (ON CPAP) CHF: No Dementia: No 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) GI Disorders: No Disorders: No HTN: Yes Hypercholesterolemia: Yes Liver Disease: No Seizures: No Thyroid Disease: No - Surgical History Abdominal Surgery: No Appendectomy: No Cardiac Surgery: No Cholecystectomy: No Lung Surgery: No Neurologic Surgery: No Orthopedic Surgery: Yes (numerous foot surgeries, right rotator cuff) - Immunization History Immunization Up to Date: No - Psycho Social/Smoking Cessation Hx Smoking History: Never smoked Have you smoked in the past 12 months: No Number of Cigarettes Smoked Daily: 1 If you are a former smoker, when did you quit?: 02/17 Information on smoking cessation initiated: No 'Breaking Loose' booklet given: 02/27/16 Hx Alcohol Use: No Drug/Substance Use Hx: No Substance Use Type: None Hx Substance Use Treatment: No Review of Systems - Review of Systems Able to Perform ROS?: Yes Is the patient limited Croatian proficient: No Constitutional: No: Chills, Fever, Malaise HEENTM: No: Symptoms Reported, See HPI, Eye Pain, Blurred Vision, Tearing, Recent change in vision, Double Vision, Cataracts, Ear Pain, Ocular Prothesis, Ear Discharge, Nose Pain, Nose Congestion, Tinnitus, Nose Bleeding, Hearing Loss , Throat Pain, Throat Swelling, Mouth Pain, Dental Problems, Difficulty Swallowing, Mouth Swelling, Other Respiratory: No: Symptoms reported, See HPI, Cough, Orthopnea, Shortness of Breath, SOB with Exertion, SOB at Rest, Stridor, Wheezing, Productive cough, Hemoptysis, Other Cardiac (ROS): No: Symptoms Reported, See HPI, Chest Pain, Edema, Irregular Heart Rate, Lightheadedness, Palpitations, Syncope, Chest Tightness, Other ABD/GI: No: Symptoms Reported : Yes: Testicular Swelling Musculoskeletal: Yes: Symptoms Reported, See HPI, Muscle Pain (left lateral thigh pain) Integumentary: Yes: Symptoms Reported, See HPI, Erythema (redness to left leg) Neurological: No: Symptoms reported, Numbness, Paresthesia, Tingling, Weakness, Dizziness All Other Systems: Reviewed and Negative *Physical Exam - Vital Signs Last Vital Signs Temp Pulse Resp BP Pulse Ox 98.2 F 96 H 16 142/82 96 10/19/19 11:48 10/19/19 11:48 10/19/19 11:48 10/19/19 11:48 10/19/19 11:48 - Physical Exam 10/19/19 12:44 GENERAL: Well developed, well nourished. Awake and alert. No acute distress. NECK: Supple. Full ROM. CARDIOVASCULAR: Regular rate and rhythm. No murmurs, rubs, or gallops. Distal pulses are 2+ and symmetric. PULMONARY: No evidence of respiratory distress. Lungs clear to auscultation bilaterally. No wheezing, rales or rhonchi. MUSCULOSKELETAL Normal range of motion at all joints. Moderate point tenderness to lateral aspect of left thigh with no tenderness to inner thigh or lower leg. No tenderness to pelvic region or lower back. SKIN: Warm and dry. Normal capillary refill. Localized 2 cm area of skin erythema to distal aspect of mireles of left leg with no open wound or drainage. No ecchymosis or bruising to left thigh area. No increased warmth to left thigh area. NEUROLOGICAL: Alert, awake, appropriate. Gait is normal without ataxia. PSYCHIATRIC: Cooperative. Good eye contact. Appropriate mood General Appearance: Yes: Nourished, Appropriately Dressed. No: Apparent Distress Medical Decision Making - Medical Decision Making 10/19/19 12:40 Patient with past medical history of COPD and hypertension presented with complaint of 3 weeks history of persistent redness to left lower leg status post insect bite 3 weeks ago and scratching it. Patient report redness started getting better and started getting worse again with localized redness to anterior aspect of distal left leg. Patient also reports 3-day history of pain to lateral aspect of left thigh which is worse with ambulation and getting up from sitting position or laying position. Denies lower back pain. Denies trauma or injury to leg. Denies numbness or tingling sensation. Patient did not take anything for symptoms Exam significant for moderate point tenderness to lateral aspect of left thigh. No skin bruising or ecchymosis. No tenderness to the rest of lower extremity. Localized 2 cm area of erythema to lower mireles of left leg with no streaking. Patient type pain likely from muscle strain. Naproxen 500 mg p.o. and Robaxin 500 g p.o. ordered for pain and spasm. Patient stable for discharge on naproxen and Robaxin for thigh pain and Bactrim antibiotics for cellulitis of left lower leg with advised to do hot compresses with PCP follow-up in 3 to 5 days for reassessment. Patient stable for discharge Discharge - Discharge Information Problems reviewed: Yes Clinical Impression/Diagnosis: Pain of left lateral upper thigh, Cellulitis of left leg without foot Condition: Stable Disposition: HOME - Admission No - Additional Discharge Information Prescriptions: Methocarbamol [Robaxin -] 500 mg PO BID #14 tablet Naproxen 500 mg PO BID PRN #20 tablet PRN Reason: thigh pain Sulfamethoxazole/Trimethoprim [Bactrim Ds -] 1 tab PO BID #14 tablet - Follow up/Referral - Patient Discharge Instructions Patient Printed Discharge Instructions: DI for Cellulitis -- Adult, DI for Ligament Sprains Additional Instructions: Your thigh pain is likely caused by muscle pain. Take prescribed medication as prescribed for pain and apply hot compress to thigh area and redness of the skin of the leg as discussed. Follow-up with your primary care next week as scheduled as discussed for reevaluation - Post Discharge Activity
== END 2019-10-19 12:50 | disposition home or self-care (01) ==
LOC: JERFT 11:39
DX: M79.18 Myalgia, other site (principal); L03.116 Cellulitis of left lower limb; S80.862S Insect bite (nonvenomous), left lower leg, sequela; W57.XXXS Bitten or stung by nonvenomous insect and other nonvenomous arthropods, sequela; I10 Essential (primary) hypertension; J44.9 Chronic obstructive pulmonary disease, unspecified
CPT/HCPCS: 99281-25

== ENCOUNTER 2019-10-31 10:11 | Emergency (ER) | payer OTHER ==
[2019-10-31 10:24] VITALS: BP 112/83; PULSE 96; TEMP 98.2; BMI 29.2
--- NOTE | 2019-10-31 11:30 | PDOC ---
History of Present Illness - General Chief Complaint: Pain Stated Complaint: PAIN Time Seen by Provider: 10/31/19 10:46 History Source: Patient Exam Limitations: No Limitations Past History - Past Medical History Allergies/Adverse Reactions: Allergies Allergy/AdvReac Type Severity Reaction Status Date / Time Quinolones Allergy Severe Difficulty Verified 10/31/19 10:21 Breathing Penicillins Allergy Intermediate Rash Verified 10/31/19 10:21 fluoroquinolones Allergy Severe Difficulty Uncoded 10/31/19 10:21 Breathing Home Medications: Ambulatory Orders Albuterol Sulfate Inhaler - [Ventolin HFA Inhaler -] 1 - 2 inh PO QID PRN Bupropion HCl 100 mg PO DAILY 09/29/18 Atorvastatin Ca [Lipitor] 20 mg PO HS 12/20/18 Budesonide [Pulmicort 0.25 mg Nebulizer -] 1 vial .ROUTE PRN PRN 12/20/18 Alendronate Sodium [Fosamax] 1 tab WEEKLY 10/31/19 Diclofenac Sodium [Voltaren] 4 gm TP QID #1 tube 10/31/19 Levothyroxine [Synthroid -] 50 mcg PO DAILY 10/31/19 traZODone HCL [Trazodone HCl] 50 mg PO DAILY 10/31/19 Anemia: No Asthma: Yes Cancer: No Cardiac Disorders: No CVA: No COPD: Yes (ON CPAP) CHF: No Dementia: No 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) GI Disorders: No Disorders: No HTN: Yes Hypercholesterolemia: Yes Liver Disease: No Seizures: No Thyroid Disease: No - Surgical History Abdominal Surgery: No Appendectomy: No Cardiac Surgery: No Cholecystectomy: No Lung Surgery: No Neurologic Surgery: No Orthopedic Surgery: Yes (numerous foot surgeries, right rotator cuff) - Immunization History Immunization Up to Date: No - Psycho Social/Smoking Cessation Hx Smoking History: Never smoked Have you smoked in the past 12 months: No Number of Cigarettes Smoked Daily: 1 If you are a former smoker, when did you quit?: 02/17 Information on smoking cessation initiated: No 'Breaking Loose' booklet given: 02/27/16 Hx Alcohol Use: No Drug/Substance Use Hx: No Substance Use Type: None Hx Substance Use Treatment: No *Physical Exam - Vital Signs Last Vital Signs Temp Pulse Resp BP Pulse Ox 98.2 F 96 H 16 112/83 99 10/31/19 10:21 10/31/19 10:21 10/31/19 10:21 10/31/19 10:21 10/31/19 10:21 - Physical Exam General Appearance: No: Apparent Distress Respiratory/Chest: positive: Lungs Clear, Normal Breath Sounds. negative: Respiratory Distress Cardiovascular: positive: Regular Rhythm, Regular Rate, S1, S2. negative: Murmur Extremity: positive: Normal Inspection, Normal Range of Motion, Other ([place]' s nodes noted). negative: Swelling, Calf Tenderness, Erythema Integumentary: positive: Normal Color. negative: Swelling, Ecchymosis, Bruising Neurologic: positive: Alert, Normal Mood/Affect Medical Decision Making - Medical Decision Making 64 y/o F hx of COPD presents with worsening L thigh pain x 4 months. Was seen in ED 2 weeks ago for similar symptoms (at that time, was also treated for RLE cellulitis). Has tried Naprosyn, Diclofenac and lido patch but states meds don' t help. Saw her PCP recently regarding this and was told she has arthritis ( noted in L knee). Patient is pending surgery for L first toe dislocation and possible L shoulder replacement too. Has appt with ortho in 2 days. Denies fever , sob, cp, numbness/tingling Likely this is due to osteoarthritis No concern for DVT or PAD based on exam Patient states Voltaren gel helps Will prescribe that until she can see ortho 10/31/19 11:24 Discharge - Discharge Information Problems reviewed: Yes Clinical Impression/Diagnosis: Osteoarthritis Qualifiers: Osteoarthritis location: knee Osteoarthritis type: unspecified Laterality: left Qualified Code(s): M17.12 - Unilateral primary osteoarthritis, left knee Condition: Stable Disposition: HOME - Admission No - Additional Discharge Information Prescriptions: Diclofenac Sodium [Voltaren] 4 gm TP QID #1 tube Prescription Drug Monitoring Program (I-STOP) results: I-STOP not reviewed - Follow up/Referral Referrals: Amarjit Burrell MD [Primary Care Provider] - - Patient Discharge Instructions Patient Printed Discharge Instructions: DI for Osteoarthritis Additional Instructions: Thank you for choosing [facility]. It was a pleasure taking care of you. You were prescribed Voltaren gel Recommend following up with your orthopedic in 2 days as scheduled Return to the Emergency Department if your symptoms worsen or persist or have other concerning symptoms. - Post Discharge Activity
== END 2019-10-31 11:37 | disposition home or self-care (01) ==
LOC: JERFT 10:11
DX: M17.12 Unilateral primary osteoarthritis, left knee (principal); I10 Essential (primary) hypertension; T38.0X5A Adverse effect of glucocorticoids and synthetic analogues, initial encounter; E09.65 Drug or chemical induced diabetes mellitus with hyperglycemia; E78.00 Pure hypercholesterolemia, unspecified; J45.998 Other asthma; J44.9 Chronic obstructive pulmonary disease, unspecified; Z99.89 Dependence on other enabling machines and devices; Z88.0 Allergy status to penicillin; Z88.8 Allergy status to other drugs, medicaments and biological substances
CPT/HCPCS: 99282-25

== ENCOUNTER 2019-12-04 10:36 | Emergency (ER) | payer OTHER ==
[2019-12-04 10:52] VITALS: BMI 29.2
--- NOTE | 2019-12-04 12:22 | PDOC ---
History of Present Illness - General Chief Complaint: Wound Stated Complaint: RT LEG INFECTION Time Seen by Provider: 12/04/19 11:54 - History of Present Illness Initial Comments: 12/04/19 12:20 64-year-old female with a past medical history of asthma presents for right lower leg infection. She underwent a course of Bactrim about a month ago failed her primary care physician sent her to the emergency room for further evaluation Past History - Past Medical History Allergies/Adverse Reactions: Allergies Allergy/AdvReac Type Severity Reaction Status Date / Time Quinolones Allergy Severe Difficulty Verified 12/04/19 10:49 Breathing Penicillins Allergy Intermediate Rash Verified 12/04/19 10:49 fluoroquinolones Allergy Severe Difficulty Uncoded 12/04/19 10:49 Breathing Home Medications: Ambulatory Orders Albuterol Sulfate Inhaler - [Ventolin HFA Inhaler -] 1 - 2 inh PO QID PRN 09/29/18 Bupropion HCl 100 mg PO DAILY 09/29/18 Atorvastatin Ca [Lipitor] 20 mg PO HS 12/20/18 Budesonide [Pulmicort 0.25 mg Nebulizer -] 1 vial .ROUTE PRN PRN 12/20/18 Alendronate Sodium [Fosamax] 1 tab WEEKLY 10/31/19 Diclofenac Sodium [Voltaren] 4 gm TP QID #1 tube 10/31/19 Levothyroxine [Synthroid -] 50 mcg PO DAILY 10/31/19 traZODone HCL [Trazodone HCl] 50 mg PO DAILY 10/31/19 Anemia: No Asthma: Yes Cancer: No Cardiac Disorders: No CVA: No COPD: Yes (ON CPAP) CHF: No Dementia: No 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) GI Disorders: No Disorders: No HTN: Yes Hypercholesterolemia: Yes Liver Disease: No Seizures: No Thyroid Disease: No - Surgical History Abdominal Surgery: No Appendectomy: No Cardiac Surgery: No Cholecystectomy: No Lung Surgery: No Neurologic Surgery: No Orthopedic Surgery: Yes (numerous foot surgeries, right rotator cuff) - Immunization History Immunization Up to Date: No - Psycho Social/Smoking Cessation Hx Smoking History: Never smoked Have you smoked in the past 12 months: No Number of Cigarettes Smoked Daily: 1 If you are a former smoker, when did you quit?: 02/17 'Breaking Loose' booklet given: 02/27/16 Hx Alcohol Use: No Drug/Substance Use Hx: No Substance Use Type: None Hx Substance Use Treatment: No Review of Systems - Review of Systems Constitutional: Yes: Malaise. No: Chills, Fever, Night Sweats Integumentary: Yes: Erythema *Physical Exam - Vital Signs Last Vital Signs Temp Pulse Resp BP Pulse Ox 97.8 F 92 H 16 133/72 100 12/04/19 10:49 12/04/19 10:49 12/04/19 10:49 12/04/19 10:49 12/04/19 10:49 - Physical Exam 12/04/19 12:20 There is an erythemic warm sensitive area on the anterior aspect of the distal third of the right lower leg. There is no areas of fluctuance the center of the area is mildly ecchymotic. Thigh and calf are soft and nontender neuro no gross sensorimotor deficits. The area is about 10 cm circumferentially ED Treatment Course - RADIOLOGY Radiology Studies Ordered: Category Date Time Status CHEST PA & LAT [RAD] Stat Radiology 12/04/19 12:19 Ordered LEG TIB/FIB-RIGHT [RAD] Stat Radiology 12/04/19 12:18 Ordered Medical Decision Making - Medical Decision Making 12/04/19 12:21 This is a patient who is failed antibiotic therapy as an outpatient and was sent to the emergency room by her primary care physician I will move her to the main emergency room for further evaluation of lower luminary laboratory work and imaging studies Discharge - Discharge Information Problems reviewed: Yes Clinical Impression/Diagnosis: Cellulitis - Follow up/Referral Referrals: Amarjit Burrell MD [Primary Care Provider] - - Patient Discharge Instructions - Post Discharge Activity
[2019-12-04 12:54] LABS: BASO % 0.5 % (0-2.0); EOS % 1.4 % (0-4.5); HEMATOCRIT 35.1 % (32.4-45.2); HEMOGLOBIN 11.3 GM/dL (10.7-15.3); LYMPH % 16.6 % (8-40); MCH 24.5 pg (25.7-33.7); MCHC 32.1 g/dl (32.0-36.0); MEAN CELL VOLUME 76.5 fl (80-96); MEAN PLT VOLUME 7.9 fl (7.5-11.1); MONO % 7.3 % (3.8-10.2); NEUT % 74.2 % (42.8-82.8); PLATELET COUNT 363 K/MM3 (134-434); RBC 4.59 M/mm3 (3.60-5.2); RDW 17.5 % (11.6-15.6); WHITE BLOOD COUNT 11.7 K/mm3 (4.0-10.0)
[2019-12-04 13:31] LABS: ALBUMIN 3.8 g/dl (3.4-5.0); BILIRUBIN,TOTAL 0.2 mg/dL (0.2-1); BLOOD UREA NITROGEN 11.4 mg/dL (7-18); CALCIUM 9.2 mg/dL (8.5-10.1); CREATININE 0.7 mg/dL (0.55-1.3); TOT PROT 7.5 g/dl (6.4-8.2)
--- NOTE | 2019-12-04 14:29 | PDOC ---
History of Present Illness - General Chief Complaint: Wound Stated Complaint: RT LEG INFECTION Time Seen by Provider: 12/04/19 11:54 History Source: Patient Exam Limitations: No Limitations - History of Present Illness Initial Comments: 12/04/19 15:24 64F PMH COPD, HTN, HLD, dCHF, prednisone induced DM sent by PCP for evaluation of right mireles erythema x 1 month that has failed Bactrim. Pt initially noted a bug bite in the area and endorses scratching at the area; was eval'd 1 month ago and dc'd on bactrim. Now endorsing a few days of throbbing pain in the area and a change in the appearance (pt unable to describe what exactly changed). Denies streaking, fevers/chills, pain of the RLE other than described. Denies cp/sob, n/v/d, abd pain, dysuria. No recent travel, surgeries, immobilization; no h/o VTE; not on hormones. Allergy - Quinolines (severe); PCN (unknown rxn) Past History - Past Medical History Allergies/Adverse Reactions: Allergies Allergy/AdvReac Type Severity Reaction Status Date / Time Quinolones Allergy Severe Difficulty Verified 12/04/19 10:49 Breathing Penicillins Allergy Intermediate Rash Verified 12/04/19 10:49 fluoroquinolones Allergy Severe Difficulty Uncoded 12/04/19 10:49 Breathing Home Medications: Ambulatory Orders Albuterol Sulfate Inhaler - [Ventolin HFA Inhaler -] 1 - 2 inh PO QID PRN 09/29/18 Bupropion HCl 100 mg PO DAILY 09/29/18 Atorvastatin Ca [Lipitor] 20 mg PO HS 12/20/18 Budesonide [Pulmicort 0.25 mg Nebulizer -] 1 vial .ROUTE PRN PRN 12/20/18 Alendronate Sodium [Fosamax] 1 tab WEEKLY 10/31/19 Diclofenac Sodium [Voltaren] 4 gm TP QID #1 tube 10/31/19 Levothyroxine [Synthroid -] 50 mcg PO DAILY 10/31/19 traZODone HCL [Trazodone HCl] 50 mg PO DAILY 10/31/19 Anemia: No Asthma: Yes Cancer: No Cardiac Disorders: No CVA: No COPD: Yes (ON CPAP) CHF: No Dementia: No 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) GI Disorders: No Disorders: No HTN: Yes Hypercholesterolemia: Yes Liver Disease: No Seizures: No Thyroid Disease: No - Surgical History Abdominal Surgery: No Appendectomy: No Cardiac Surgery: No Cholecystectomy: No Lung Surgery: No Neurologic Surgery: No Orthopedic Surgery: Yes (numerous foot surgeries, right rotator cuff) - Immunization History Immunization Up to Date: No - Psycho Social/Smoking Cessation Hx Smoking History: Never smoked Have you smoked in the past 12 months: No Number of Cigarettes Smoked Daily: 1 If you are a former smoker, when did you quit?: 02/17 'Breaking Loose' booklet given: 02/27/16 Hx Alcohol Use: No Drug/Substance Use Hx: No Substance Use Type: None Hx Substance Use Treatment: No Review of Systems - Review of Systems Able to Perform ROS?: Yes Comments:: 12/04/19 15:24 CONSTITUTIONAL: Denies F / C RESP: Denies SOB CARD: Denies chest pain GI: Denies N / V / D, abdominal pain, bloody stool, inability to tolerate PO : Denies dysuria SKIN: endorses rash/erythema of the RLE NEURO: Denies numbness, tingling, weakness MSK: Denies R foot, leg, and calf pain except throbbing pain at the rash site. Is the patient limited Cypriot proficient: No *Physical Exam - Vital Signs Last Vital Signs Temp Pulse Resp BP Pulse Ox 97.8 F 92 H 16 133/72 100 12/04/19 10:49 12/04/19 10:49 12/04/19 10:49 12/04/19 10:49 12/04/19 10:49 - Physical Exam 12/04/19 15:24 GEN: Well appearing, nontoxic, comfortable. AAOx3. HEENT: NC/AT, EOMI, PERRL. No facial asymmetry. Normal voice. Supple neck w/ FROM. CV: S1/S2, RRR, no m/r/g LUNG: isolated end expiratory wheezing on the right upper field o/w CTAB GI: Soft, ndnt, +BS, no guarding, no rebound. MSK: erythematous area on the anterior mireles; nontender, not warm, no induration. There is 1+ pitting edema around the right ankles. No calf TTP b/l. SKIN: Warm, dry, no rashes appreciated. PSYCH: Normal mood and affect. NEURO: Moving all extremities well. ED Treatment Course - LABORATORY CBC & Chemistry Diagram: 12/04/19 12:45 12/04/19 12:45 - ADDITIONAL ORDERS Additional order review: Laboratory Results 12/04/19 12:45 Sodium 140 Potassium 4.0 Chloride 106 Carbon Dioxide 28 Anion Gap 5 L BUN 11.4 Creatinine 0.7 Est GFR (CKD-EPI)AfAm 106.12 Est GFR (CKD-EPI)NonAf 91.56 Random Glucose 79 Calcium 9.2 Total Bilirubin 0.2 AST 20 ALT 22 Alkaline Phosphatase 82 Total Protein 7.5 Albumin 3.8 12/04/19 12:45 RBC 4.59 MCV 76.5 L MCHC 32.1 RDW 17.5 H MPV 7.9 Neutrophils % 74.2 Lymphocytes % 16.6 D Monocytes % 7.3 Eosinophils % 1.4 Basophils % 0.5 Medical Decision Making - Medical Decision Making 12/04/19 14:19 64F c/o 1 month of right mireles erythema and pain; was seen and prescribed a 7 day course of bactrim on 10/19/19. Exam not convincing for cellulitis or infectious cause. Likely 2/2 bug bite and subsequent prolonged itching. - RME orders reviewed 12/04/19 14:40 labs reviewed mild wbc likely due to chronic steroids XR of the RLE w/o acute pathology per report d/w Dr. Burrell - agrees w/ plan to dc w/ abx as affected area does not look cellulitic or infectious; will see in office in next 1-2 days. 12/04/19 15:08 erythematous area marked d/w plan w/ pt - amenable to plan, will f/u and keep eye on erythema dc home w/ pcp f/u Discharge - Discharge Information Problems reviewed: Yes Clinical Impression/Diagnosis: Erythema Condition: Good Disposition: HOME - Admission No - Follow up/Referral Referrals: Amarjit Burrell MD [Primary Care Provider] - - Patient Discharge Instructions Additional Instructions: Follow up with Dr. Burrell in 1-2 days; he is aware but you need to call and schedule an appointment. We have marked the affected area; if the redness spreads outside this area return to the Emergency Department. Take tylenol for pain. Continue your home medications as prescribed. Return to the nearest Emergency Department if you experience: - fevers, spreading pain, red streaking up or down the leg - worsening pain - anything that concerns you - Post Discharge Activity
--- NOTE | 2019-12-04 14:29 | EKG ---
Test Reason : Blood Pressure : / mmHG Vent. Rate : 086 BPM Atrial Rate : 086 BPM P-R Int : 170 ms QRS Dur : 088 ms QT Int : 378 ms P-R-T Axes : 039 030 062 degrees QTc Int : 452 ms NORMAL SINUS RHYTHM NORMAL ECG WHEN COMPARED WITH ECG OF 17-APR-2019 01:56, NO SIGNIFICANT CHANGE WAS FOUND Confirmed by Tom Terry ([id number]) on 12/04/2019 2:29:47 PM Referred By: Confirmed By:Tom Terry
--- NOTE | 2019-12-04 14:41 | PDOC ---
Documentation entered by Dinorah Traylor SCRIBE, acting as scribe for Twan James MD. Twan James MD: This documentation has been prepared by the Kymberly prieto Brenda, SCRIBE, under my direction and personally reviewed by me in its entirety. I confirm that the documentation accurately reflects all work, treatment, procedures, and medical decision making performed by me. Attending Attestation - Resident Resident Name: Janusz Santos - ED Attending Attestation I have performed the following: I have examined & evaluated the patient, The case was reviewed & discussed with the resident, I agree w/resident's findings & plan, Exceptions are as noted - HPI HPI: 12/04/19 13:57 The patient is a 64 year old Female with a significant hx of COPD and asthma who presents to the ED for evaluation of a 2 week right foot wound. The patient complains of a red area on the mireles that she states has happened since she was bitten by bed bugs about 2 weeks ago. Patients endorses that she feels the site pulsating at times. She denies any current pain states that she was given a course of antibiotics by her primary care doctor but the redness seemed to have improved slightly but then seemed to be spreading now. Patient denies any warmth that area, fever, chills, nausea, vomiting, she states that the appearance of the region looks better than before. The patient denies ever having any skin breakage or scabbing. Allergies: Per EMR PCP: Amarjit Burrell - Physicial Exam PE: 12/04/19 14:35 GENERAL: The patient is awake, alert, and fully oriented, Nontoxic - in no acute distress. SKIN: R mireles - mild blanching erythema on the anterior mireles, there is no focal induration, ecchymosis, significant edema, fluctuance, warmth, tenderness to palpation. neg homans, neg - Medical Decision Making 12/04/19 14:40 The patient's erythema does not appear to be infected it is not warm, tender, indurated. It may be from irritation from scratching or from her boot that she wears in the evening she says rub up against it. The patient's blood work was reviewed noted for a very mild leukocytosis at 11 but that seems chronic for the patient, she is also on chronic steroids. Case discussed with Dr. Burrell -will concepcion it and having Dr. Amarjit Burrell to reevaluate tomorrow.
[2019-12-04 15:19] VITALS: BP 132/82; PULSE 93; TEMP 97.5
== END 2019-12-04 15:18 | disposition home or self-care (01) ==
LOC: JERFT 10:36 → JER 10:36
DX: L03.115 Cellulitis of right lower limb (principal); I11.0 Hypertensive heart disease with heart failure; I50.32 Chronic diastolic (congestive) heart failure; J44.9 Chronic obstructive pulmonary disease, unspecified; J45.909 Unspecified asthma, uncomplicated; E09.9 Drug or chemical induced diabetes mellitus without complications; T38.0X5A Adverse effect of glucocorticoids and synthetic analogues, initial encounter; Y92.038 Other place in apartment as the place of occurrence of the external cause; E78.5 Hyperlipidemia, unspecified; Z88.0 Allergy status to penicillin; Z88.8 Allergy status to other drugs, medicaments and biological substances
CPT/HCPCS: 36415; 71046-TC-FY; 73590-TC-RT-FY; 80053; 85025; 87040; 93005; 93010; 99285-25

== ENCOUNTER 2020-05-08 16:18 | Emergency (ER) | payer OTHER ==
[2020-05-08 16:42] VITALS: BP 157/73; PULSE 94; TEMP 98.4; BMI 29.2
[2020-05-08] MEDS ORDERED: KETOROLAC TROMETHAMINE 60 MG/2 ML VIAL IM ONE (17:05)
[2020-05-08] MEDS ORDERED: KETOROLAC TROMETHAMINE 30 MG/1 ML VIAL ONE (17:38)
--- NOTE | 2020-05-08 17:56 | PDOC ---
History of Present Illness - General Chief Complaint: Back Pain Stated Complaint: BACK PAIN Time Seen by Provider: 05/08/20 16:49 - History of Present Illness Initial Comments: 05/08/20 17:54 65-year-old female with a past medical history of hypothyroidism left shoulder fracture and dislocated toe presents for evaluation of atraumatic onset of lower back pain without radicular symptoms x2 days no systemic symptoms no loss of b owel bladder function or saddle paresthesias. Past History - Medical History Allergies/Adverse Reactions: Allergies Allergy/AdvReac Type Severity Reaction Status Date / Time Quinolones Allergy Severe Difficulty Verified 05/08/20 16:39 Breathing Penicillins Allergy Intermediate Rash Verified 05/08/20 16:39 fluoroquinolones Allergy Severe Difficulty Uncoded 05/08/20 16:39 Breathing Home Medications: Ambulatory Orders Albuterol Sulfate Inhaler - [Ventolin HFA Inhaler -] 1 - 2 inh PO QID PRN 09/29/18 Bupropion HCl 100 mg PO DAILY 09/29/18 Atorvastatin Ca [Lipitor] 20 mg PO HS 12/20/18 Diclofenac Sodium [Voltaren] 4 gm TP QID #1 tube 10/31/19 Levothyroxine [Synthroid -] 50 mcg PO DAILY 10/31/19 Acetaminophen [Tylenol .Extra-Strength -] 1 tab PO HS 12/25/19 Cetirizine HCl [Zyrtec -] 1 tab PO DAILY 12/25/19 Cholecalciferol (Vitamin D3) [Vitamin D3] 1 tab PO DAILY 12/25/19 Fluticasone/Umeclidin/Vilanter [Trelegy Ellipta 100-62.5-25] 1 inh IH DAILY 12/25/19 Montelukast Sodium [Singulair] 1 tab PO DAILY 12/25/19 Naproxen [Naprosyn] 1 tab PO HS 12/25/19 Hydrochlorothiazide 12.5 mg PO DAILY 02/12/20 Losartan Potassium 25 mg PO DAILY 02/12/20 Prednisone 5 mg PO DAILY 05/06/20 predniSONE [Deltasone -] 05/06/20 Cyclobenzaprine HCl [Flexeril 10 mg] 10 mg PO HS PRN #10 tablet 05/08/20 Anemia: No Asthma: Yes Cancer: No Cardiac Disorders: No CVA: No COPD: Yes (ON CPAP) CHF: No Dementia: No 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) GI Disorders: No Disorders: No HTN: Yes Hypercholesterolemia: Yes Liver Disease: No Seizures: No Thyroid Disease: No - Surgical History Abdominal Surgery: No Appendectomy: No Cardiac Surgery: No Cholecystectomy: No Lung Surgery: No Neurologic Surgery: No Orthopedic Surgery: Yes (numerous foot surgeries, right rotator cuff) - Reproductive History Is Patient Now?: No - Immunization History Immunization Up to Date: No - Psycho-Social/Smoking History Smoking History: Former smoker Have you smoked in the past 12 months: No Number of Cigarettes Smoked Daily: 1 If you are a former smoker, when did you quit?: 02/17 Information on smoking cessation initiated: No 'Breaking Loose' booklet given: 02/27/16 - Substance Abuse Hx (Audit-C & DAST Scrn) How often the patient has a drink containing alcohol: Never Score: In Men: 4 or > Positive; In Women: 3 or > Positive: 0 Screen Result (Pos requires Nsg. Audit-10AR): Negative In the last yr the pt used illegal drug/Rx for NonMed reason: No Score: Yes response is considered Positive: 0 Screen Result (Positive result requires Nsg. DAST-10): Negative Review of Systems - Review of Systems Musculoskeletal: Yes: Back Pain *Physical Exam - Vital Signs Last Vital Signs Temp Pulse Resp BP Pulse Ox 98.4 F 94 H 18 157/73 100 05/08/20 16:37 05/08/20 16:37 05/08/20 16:37 05/08/20 16:37 05/08/20 16:37 - Physical Exam 05/08/20 17:55 Lumbar spine skin color temperature normal range of motion is slightly decreased. No midline tenderness. Moderate bilateral paralumbar musculature spasm and tenderness 5 out of 5 strength bilateral lower extremities without gross sensorimotor deficits thighs and calves are soft and nontender neurovascular intact ED Treatment Course - Medications Given in the ED: ED Medications Discontinued Medications Generic Name Dose Route Start Last Admin Trade Name Freq PRN Reason Stop Dose Admin Ketorolac Tromethamine 30 mg 05/08/20 17:05 05/08/20 17:50 Toradol Injection - IM 05/08/20 17:06 30 mg ONCE ONE Administration Medical Decision Making - Medical Decision Making 05/08/20 17:55 Patient on chronic prednisone. One-time shot of Toradol in the emergency room gave her some relief. Flexeril at home follow-up with orthopedic surgery I have reviewed the pathophysiology with the patient. They are in agreement with the treatment plan all questions were answered to their satisfaction. Understanding for follow-up without fail was also conveyed to the patient. Again they are in agreement. Discharge - Discharge Information Problems reviewed: Yes Clinical Impression/Diagnosis: Lumbar strain Condition: Improved Disposition: HOME - Admission No - Additional Discharge Information Prescriptions: Cyclobenzaprine HCl [Flexeril 10 mg] 10 mg PO HS PRN #10 tablet PRN Reason: Muscle Spasms - Follow up/Referral Referrals: Amarjit Burrell MD [Primary Care Provider] - Stanislav Buchanan DO [Staff Physician] - - Patient Discharge Instructions Additional Instructions: Please take the muscle relaxer 1 tablet before bedtime will make you sleepy. Continue your regular medications as scheduled and return to the emergency room should symptoms worsen. Without fail follow-up with orthopedic surgery in 2 to 3 days for further evaluation and treatment options. - Post Discharge Activity
== END 2020-05-08 18:00 | disposition home or self-care (01) ==
LOC: JER 16:18
PROC: 3E023GC Introduction of Other Therapeutic Substance into Muscle, Percutaneous Approach (ICD-10-PCS; principal; 2020-05-08)
DX: S39.012A Strain of muscle, fascia and tendon of lower back, initial encounter (principal); Y99.9 Unspecified external cause status
CPT/HCPCS: 99284-25

== ENCOUNTER 2020-06-24 01:14 | Inpatient (IN) | payer OTHER ==
--- OUTSIDE RECORDS SUMMARY | 2020-06-24 01:33 | XMS ---
:1955 Author Organization [facility] Care Team Providers Name Role Phone [facility] Unavailable Unavailable Ricky Whipple Unavailable [phone] ERROL STANLEY Unavailable Unavailable CIELO BLANCHARD Unavailable Unavailable Khadar Myles Unavailable [phone] Elliott Nfor, Bijou DPM Unavailable Unavailable Elloitt Nfor, Bijou DPM Unavailable Unavailable Elliott Nfor, Bijou DPM Unavailable Unavailable Elliott Nfor, Bijou DPM Unavailable Unavailable Elliott Nfor, Bijou DPM Unavailable Unavailable Elliott Nfor, Bijou DPM Unavailable Unavailable Other, Doctor Unavailable Unavailable Cielo Torres Unavailable [phone] Cielo Torres Unavailable [phone] NEHA CARBALLO Unavailable Unavailable Re-disclosure Warning The records that you are about to access may contain information from federally- assisted alcohol or drug abuse programs. If such information is present, then the following federally mandated warning applies: This information has been disclosed to you from records protected by federal confidentiality rules (42 CFR part 2). The federal rules prohibit you from making any further disclosure of this information unless further disclosure is expressly permitted by the written consent of the person to whom it pertains or as otherwise permitted by 42 CFR part 2. A general authorization for the release of medical or other information is NOT sufficient for this purpose. The Federal rules restrict any use of the information to criminally investigate or prosecute any alcohol or drug abuse patient.The records that you are about to access may contain highly sensitive health information, the redisclosure of which is protected by Article 27-F of the [facility] Public Health law. If you continue you may haveaccess to information: Regarding HIV / AIDS; Provided by facilities licensed or operated by the [facility] Office of Mental Health; or Provided by the [facility] Office for People With Developmental Disabilities. If such information is present, then the following [facility] mandated warning applies: This information has been disclosed to you from confidential records which are protected by state law. State law prohibits you from making any further disclosure of this information without the specific written consent of the person to whom it pertains, or as otherwise permitted by law. Any unauthorized further disclosure in violation of state law may result in a fine or usp sentence or both. A general authorization for the release of medical or other information is NOT sufficient authorization for further disclosure. Allergies and Adverse Reactions Type Description Substance Reaction Status Data Source(s ) Drug allergy Quinolones Quinolones [facility] Drug allergy Penicillins Penicillins [facility] Food allergy No Known Food No Known Food [facility] Allergies Allergies [facility] [id number] Levaquin Respiratory Active [facility] Fluoroquinolones [id number] penicillin G Localized Active [facility] potassium superficial swelling Syst em of skin Encounters Encounter Providers Location Date Indications Data Source(s ) Outpatient Attender: Sena 5T-LAB 06/03/2020 [facility] - Jessica nt Constantine Pelayo 09:43:00 AM Hospital DPMAttender: Doctor EDT - OtherReferrer: Sena 06/03/2020 Elliott Nfor DPM 11:59:00 PM EDT Patient discharged. S Attender: Sena Gallagher 5T-AMB SURG 05/30/2020 10:53:13 AM S - Shirley Fitch Nfor DPM EDT - 06/05/2020 Hospital 11:59:00 PM EDT Patient discharged. OutpatientOFFICE/OUTPATIENT Attender: [facility] 05/23/2020 NEXTGEN VISIT, [facility] 10:50:00 AM ([facility] EDT - [facility] 05/23/2020 Medical 10:50:00 AM Center) EDT [facility] ([facility] on [facility] 11:30:01 AM [facility] EDT [facility]) Patient admitted. Attender: [facility] 04/03/2020 NEXTG EN ([facility] 10:18:00 AM EDT - [facility] 04/03/2020 Medical 10:18:00 AM EDT Center) Individual Attender: [facility] 03/26/2020 NEXTGE N ([facility] [facility] 03:33:00 PM EDT - [place] [facility]) 03/26/2020 Medical 03:33:00 PM EDT Center) Individual Attender: [facility] 03/20/2020 NEXTGE N ([facility] ([facility] 01:04:00 PM EDT - [place] [facility]) 03/20/2020 Medical 01:04:00 PM EDT Center) Individual Attender: [facility] 03/12/2020 NEXTGE N ([facility] ([facility] 02:38:00 PM EDT - [place] [facility]) 03/12/2020 Medical 02:38:00 PM EDT Center) Individual Attender: [facility] 03/06/2020 NEXTGE N ([facility] ([facility] 12:07:00 PM EDT - [place] [facility]) 03/06/2020 Medical 12:07:00 PM EDT Center) Individual Attender: [facility] 02/20/2020 NEXTGE N ([facility] ([facility] 10:14:00 AM EDT - [place] [facility]) 02/20/2020 Medical 10:14:00 AM EDT Center) Individual Attender: [facility] 02/13/2020 NEXTGE N ([facility] 02:24:00 PM EDT - [place] [facility]) 02/13/2020 Medical 02:24:00 PM EDT Center) Individual Attender: [facility] 02/06/2020 NEXTGE N ([facility] 10:03:00 AM EDT - [place] [facility]) 02/06/2020 Medical 10:03:00 AM EDT Center) Attender: [facility] 01/30/2020 NEXTGE N ([facility] 10:22:00 AM EDT - [facility] 01/30/2020 Medical 10:22:00 AM EDT Center) Individual Attender: [facility] 01/23/2020 NEXTGE N ([facility] 10:06:00 AM EDT - [place] [facility]) 01/23/2020 Medical 10:06:00 AM EDT Center) Individual Attender: [facility] 01/16/2020 NEXTGE N ([facility] 12:08:00 PM EDT - [place] [facility]) 01/16/2020 Medical 12:08:00 PM EDT Center) Individual Attender: [facility] 01/09/2020 NEXTGE N ([facility] 12:37:00 PM EDT - [place] [facility]) 01/09/2020 Medical 12:37:00 PM EDT Center) Individual Attender: [facility] 01/01/2020 NEXTGE N ([facility] 11:46:00 AM EDT - [place] [facility]) 01/01/2020 Medical 11:46:00 AM EDT Center) OutpatientOFFICE/OUTP Attender: [facility] 12/29/2019 NEXTGEN ([facility] ATIENT VISIT, EST [facility] 09:19:00 AM EDT - [place] 12/29/2019 Medical 09:19:00 AM EDT Center) Individual Attender: [facility] 12/07/2019 NEXTGE N ([facility] 10:40:00 AM EST - [place] [facility]) 12/07/2019 Medical 10:40:00 AM EST Center) Outpatient Attender: [id number] 11/21/2019 [facility] ([facility] 11:55:55 AM EST [facility]) Patient admitted. Individual Attender: [facility] 11/20/2019 NEXTGE N ([facility] 03:31:00 PM EST - [place] [facility]) 11/20/2019 Medical 03:31:00 PM EST Center) Individual Attender: [facility] 11/09/2019 NEXTGE N ([facility] 01:34:00 PM EST - [place] [facility]) 11/09/2019 Medical 01:34:00 PM EST Center) Outpatient Attender: [id number] 11/06/2019 [facility] 11:09[facility]31 AM [facility]) Patient admitted. Individual Attender: [facility] 11/03/2019 NEXTGEN ( [facility] 12:03:00 PM [facility] Clinic EST - Center) 11/03/2019 12:03:00 PM EST OutpatientOFFICE/O Attender: [facility] 10:18:00 AM [facility] EST Clinic EST - Center) 10/30/2019 10:18:00 AM EST Outpatient Attender: CIELO Biggs 10/28/2019 [facility] 10:24:00 AM Medical Cent er JELENAAdmitter: EST CIELO ESQUIVEL Attender: [facility]28[facility]2019 [facility] 10:24:00 AM [place] [facility] EST - Center) 10/28/2019 10:24:00 AM EST Individual Attender: Ricky Mental 10/19/2019 NEXTGEN ( [facility] 05:26:00 PM [facility]) Clinic EST - Center) 10/19/2019 05:26:00 PM EST Individual Attender: Ricky Mental 10/12/2019 NEXTGEN ( [facility] 11:35:00 AM [facility] Clinic EST - Center) 10/12/2019 11:35:00 AM EST Outpatient Attender: CIELO Biggs 10/12/2019 [facility] 10:24:00 AM Medical Cent er JELENAAdmitter: EST CIELO JACOBSA Individual Attender: [facility] Mental 09/19/2019 NEXTGEN ( [facility] 01:39:00 PM [facility]) Clinic EST - Center) 09/19/2019 01:39:00 PM EST Individual Attender: Ricky Mental 09/04/2019 NEXTGEN ( [facility] 05:37:00 PM [facility]) Clinic EST - Center) 09/04/2019 05:37:00 PM EST OutpatientOFFICE/O Attender: Cielo Mental 09/04/2019 NEXTGEN ([facility] UTPATIENT VISIT, [facility] 09:58:00 AM [facility] EST Clinic EST - Center) 09/04/2019 09:58:00 AM EST Individual Attender: Ricky Mental 08/08/2019 NEXTGEN ( [facility] 01:39:00 PM [facility]) Clinic EST - Center) 08/08/2019 01:39:00 PM EST Individual Attender: [facility] Mental 07/21/2019 NEXTGEN ( [facility] 12:50:00 PM [facility]) Clinic EDT - Center) 07/21/2019 12:50:00 PM EDT Individual Attender: [facility] Mental 07/07/2019 NEXTGEN ( [facility] 11:31:00 AM [facility]) Clinic EDT - Center) 07/07/2019 11:31:00 AM EDT OutpatientOFFICE/O Attender: Cielo Mental 07/07/2019 NEXTGEN ([facility] UTPATIENT VISIT, [facility] 09:31:00 AM [facility] EST Clinic EDT - Center) 07/07/2019 09:31:00 AM EDT Outpatient Attender: 06/27/2019 [place]ING ON [place] JADEN, 06:00:00 AM DX CODES [facility] DAVIDAdmitter: EDT Care Jailyn CARBALLOeferrer: ERROL STANLEY WAITING ON DX CODES Individual Attender: [facility] 06/20/2019 NEXTGE N ([facility] 12:57:00 PM EDT - [place] [facility]) 06/20/2019 Center) 12:57:00 PM EDT OutpatientOFFICE/OUT Attender: [facility] 06/07/2019 NEXTGEN ([facility] PATIENT VISIT, EST [facility] 11:44:00 AM EDT - [facility] 06/07/2019 [place]) 11:44:00 AM EDT Individual Attender: [facility] 06/06/2019 NEXTGE N ([facility] 11:27:00 AM EDT - [place] [facility] Min) 06/06/2019 [place]) 11:27:00 AM EDT Attender: [facility] 06/01/2019 NEXTG EN ([facility] 10:53:00 AM EDT [facility] Medical 06/01/2019 [place]) 10:53:00 AM EDT Individual Attender: [facility] 05/23/2019 NEXTGE N ([facility] 12:31:00 PM EDT - [facility] Medical Min) 05/23/2019 [place]) 12:31:00 PM EDT Individual Attender: [facility] 05/08/2019 NEXTGE N ([facility] 05:33:00 PM EDT - [facility] Min) 05/08/2019 [place]) 05:33:00 PM EDT Individual Attender: [facility] 03/31/2019 NEXTGE N ([facility] 12:49:00 PM EDT - [place] [facility] Min) 03/31/2019 [place]) 12:49:00 PM EDT OutpatientOFFICE/OUT Attender: [facility] 03/31/2019 NEXTGEN ([facility] PATIENT VISIT, EST [facility] 12:39:00 PM EDT [facility] 03/31/2019 [place]) 12:39:00 PM EDT Individual Attender: [facility] 03/06/2019 NEXTGE N ([facility] 01:01:00 PM EDT - [place] [facility] Min) 03/06/2019 [place]) 01:01:00 PM EDT OutpatientOFFICE/OUT Attender: [facility] 03/02/2019 NEXTGEN ([facility] PATIENT VISIT, EST [facility] 02:33:00 PM EDT - [facility] 03/02/2019 [place]) 02:33:00 PM EDT Attender: [facility] 02/01/2019 NEXTG EN ([facility] 03:55:00 PM EDT - [facility] 02/01/2019 [place]) 03:55:00 PM EDT Individual Attender: [facility] 01/10/2019 NEXTGE N ([facility] 06:05:00 PM EDT - [place] [facility] Min) 01/10/2019 [place]) 06:05:00 PM EDT Outpatient 12/23/2018 [facility] 07:46:00 AM EDT ([facility]) Individual Attender: [facility] 12/22/2018 NEXTGE N ([facility] 11:41:00 AM EDT - [place] [facility] Min) 12/22/2018 [place]) 11:41:00 AM EDT Attender: [facility] 12/13/2018 NEXTG EN ([facility] 10:26:00 AM EDT - [facility] 12/13/2018 [place]) 10:26:00 AM EDT Individual Attender: [facility] 12/08/2018 NEXTGE N ([facility] 04:48:00 PM EST - [place] [facility] Min) 12/08/2018 [place]) 04:48:00 PM EST Individual Attender: [facility] 11/15/2018 NEXTGE N ([facility] 12:28:00 PM EST - [place] [facility] Min) 11/15/2018 [place]) 12:28:00 PM EST OutpatientOFFICE/OUT Attender: [facility] 11/15/2018 NEXTGEN ([facility] 10:[facility]:00 AM EST - [place] [facility] 11/15/2018 [place]) 10:02:00 AM EST Attender: [facility] 09/30/2018 NEXTG EN ([facility] 09:33:00 AM EST - [facility] 09/30/2018 [place]) 09:33:00 AM EST Individual Attender: [facility] Mental [facility] 09/01/2018 NEXTGE N ([facility] 04:09:00 PM EST - [place] [facility] Min) 09/01/2018 [place]) 04:09:00 PM EST Attender: [facility] 11/05/2017 [facility]GEN [facility] 10:05:[facility] AM EST - [facility] 11/05/2017 Center) 10:05:00 AM EST Medications Medication Brand Start Product Dose Route Administrative Pharmacy [facility] Indications Reaction Description Data Name Date Form Instructions Instructions Source(s) 12 HR [facility] ORAL active 12 HR NEXTGEN Bupropion 2019 {tabl bupropion ([facility] Hydrochlori SR 100 12:00: et} hydrochlo rid [place] de 100 MG mg 00 AM e 100 MG Medic al Extended tablet EDT Extended Cente r) Release , 12 Release Oral Oral Tablet hr Tablet [Wellbutrin sustai [Wellbutrin ] ] josé-re Wellbutrin lease SR 100 mg tablet, 12 hr sustained-r elease 12 HR [facility] ORAL complet 12 HR NEXTGE N Bupropion 2019 {tabl ed bupropion ([facility] Hydrochlori SR 100 12:00: et} hydrochlo rid [place] de 100 MG mg 00 AM e 100 MG Medic al Extended tablet EDT Extended Cente r) Release , 12 Release Oral Oral Tablet hr Tablet [Wellbutrin sustai [Wellbutrin ] ] josé-re Wellbutrin lease SR 100 mg tablet, 12 hr sustained-r elease 12 HR [facility] ORAL complet 12 HR NEXTGE N Bupropion 2019 {tbl} ed Bupropion ([facility] Hydrochlori SR 100 12:00: Hydrochlo rid [place] de 100 MG mg 00 AM e 100 MG Medic al Extended tablet EDT Extended Cente r) Release , 12 Release Oral Oral Tablet hr Tablet [Wellbutrin sustai [Wellbutrin ] ] josé-re Wellbutrin lease SR 100 mg tablet, 12 hr sustained-r elease Trazodone trazod 10/30/ 0.5 ORAL complet take 0.5 NEXTGEN Hydrochlori one 50 2019 {tabl ed tablet by ([facility] de 50 MG mg 12:00: et} oral route Kd ephs Oral Tablet tablet 00 AM every day at [facility] trazodone EST bedtime Center) 50 mg tablet 12 HR [facility] ORAL complet 12 HR NEXTGE N Bupropion 2019 {tbl} ed Bupropion ([facility] Hydrochlori SR 100 12:00: Hydrochlo rid [place] de 100 MG mg 00 AM e 100 MG Medic al Extended tablet EST Extended Cente r) Release , 12 Release Oral Oral Tablet hr Tablet [Wellbutrin sustai [Wellbutrin ] ] josé-re Wellbutrin lease SR 100 mg tablet, 12 hr sustained-[facility]ase [facility] Bupropion violeta 2018 {tbl} ed Bupropion ([facility] Hydrochlori SR 100 12:00: Hydrochlo rid [place] de 100 MG mg 00 AM e 100 MG Medic al Extended tablet EST Extended Cente r) Release , 12 Release Oral Oral Tablet hr Tablet [Wellbutrin sustai [Wellbutrin ] ] josé-re Wellbutrin lease SR 100 mg tablet, 12 hr sustained-r elease 12 HR [facility] ORAL complet 12 HR NEXTGE N Bupropion violeta 2018 {tbl} ed Bupropion ([facility] Hydrochlori SR 100 12:00: Hydrochlo rid [place] de 100 MG mg 00 AM e 100 MG Medic al Extended tablet EDT Extended Cente r) Release , 12 Release Oral Oral Tablet hr Tablet [Wellbutrin sustai [Wellbutrin ] ] josé-re Wellbutrin lease SR 100 mg tablet, 12 hr sustained-r elease 12 HR [facility] ORAL complet 12 HR NEXTGE N Bupropion violeta 2018 {tbl} ed Bupropion ([facility] Hydrochlori SR 100 12:00: Hydrochlo rid [place] de 100 MG mg 00 AM e 100 MG Medic al Extended tablet EDT Extended Cente r) Release , 12 Release Oral Oral Tablet hr Tablet [Wellbutrin sustai [Wellbutrin ] ] josé-re Wellbutrin lease SR 100 mg tablet, 12 hr sustained-r elease 12 HR [facility] ORAL complet 12 HR NEXTGE N Bupropion violeta 2018 {tbl} ed Bupropion ([facility] Hydrochlori SR 100 12:00: Hydrochlo rid [place] de 100 MG mg 00 AM e 100 MG Medic al Extended tablet EDT Extended Cente r) Release , 12 Release Oral Oral Tablet hr Tablet [Wellbutrin sustai [Wellbutrin ] ] josé-re Wellbutrin lease SR 100 mg tablet, 12 hr sustained-r elease 12 HR [facility] ORAL complet 12 HR NEXTGE N Bupropion violeta 2018 {tbl} ed Bupropion ([facility] Hydrochlori SR 100 12:00: Hydrochlo rid [place] de 100 MG mg 00 AM e 100 MG Medic al Extended tablet EDT Extended Cente r) Release , 12 Release Oral Oral Tablet hr Tablet [Wellbutrin sustai [Wellbutrin ] ] josé-re Wellbutrin lease SR 100 mg tablet, 12 hr sustained-r elease [facility] 12 HR NEXTGE N Bupropion violeta 2018 {tbl} ed Bupropion ([facility] Hydrochlori SR 100 12:00: Hydrochlo rid [place] de 100 MG mg 00 AM e 100 MG Medic al Extended tablet EDT Extended Cente r) Release , 12 Release Oral Oral Tablet hr Tablet [Wellbutrin sustai [Wellbutrin ] ] josé-re Wellbutrin lease SR 100 mg tablet, 12 hr sustained-r elease 12 HR [facility] ORAL complet 12 HR NEXTGE N Bupropion violeta 2018 {tbl} ed Bupropion ([facility] Hydrochlori SR 100 12:00: Hydrochlo rid [place] de 100 MG mg 00 AM e 100 MG Medic al Extended tablet EDT Extended Cente r) Release , 12 Release Oral Oral Tablet hr Tablet [Wellbutrin sustai [Wellbutrin ] ] josé-re Wellbutrin lease SR 100 mg tablet, 12 hr sustained-r elease 12 HR [facility] ORAL complet 12 HR NEXTGE N Bupropion violeta 2018 {tbl} ed Bupropion ([facility] Hydrochlori SR 100 12:00: Hydrochlo rid [place] de 100 MG mg 00 AM e 100 MG Medic al Extended tablet EDT Extended Cente r) Release , 12 Release Oral Oral Tablet hr Tablet [Wellbutrin sustai [Wellbutrin ] ] josé-re Wellbutrin lease SR 100 mg tablet, 12 hr sustained-r elease buspirone buspir ORAL complet take 1 N EXTGEN hydrochlori one 2018 {tbl} ed tablet by ( [facility] de 5 MG mg 12:00: oral route Bala phs Oral Tablet tablet 00 AM every day as Medical buspirone 5 EDT needed for Ce nter) mg tablet Anxiety buspirone buspir ORAL complet take 1 N EXTGEN hydrochlori one 5 2018 {tbl} ed tablet by ( [facility] de 5 MG mg 12:00: oral route Bala phs Oral Tablet tablet 00 AM every day as Medical buspirone 5 EST needed for Ce nter) mg tablet Anxiety 12 HR [facility] ORAL complet 12 HR NEXTGE N Bupropion violeta 2018 {tbl} ed Bupropion ([facility] Hydrochlori SR 100 12:00: Hydrochlo rid [place] de 100 MG mg 00 AM e 100 MG Medic al Extended tablet EST Extended Cente r) Release , 12 Release Oral Oral Tablet hr Tablet [Wellbutrin sustai [Wellbutrin ] ] josé-re Wellbutrin lease SR 100 mg tablet, 12 hr sustained-r elease Ventolin [id number] 2 [id number] active Ventolin H FA [facility] HFA 90 70650 {puff Health mcg/inh (s)} System inhalation aerosol Famotidine famoti 1 T15306 active Famotidi ne [facility] 40 MG Oral dine {tab( Health Tablet 40 mg s)} System famotidine oral 40 mg oral tablet tablet atorvastati atorva 1 R12660 active Lipitor [facility] n 10 MG statin {tab( Health Oral Tablet 10 mg s)} System atorvastati oral n 10 mg tablet oral tablet montelukast haresh 1 R04922 active Singula ir [facility] 10 MG Oral ukast {tab( Health Tablet 10 mg s)} System montelukast oral 10 mg oral tablet tablet Levothyroxi levoth 1 Q53864 active Synthro id [facility] ne Sodium yroxin {tab( Health 0.075 MG e 75 s)} System Oral Tablet mcg levothyroxi (0.075 ne 75 mcg mg) (0.075 mg) oral oral tablet tablet Budesonide budeso 2 mL S51107 active Budesoni de [facility] 0.125 MG/ML nide Health Inhalant 0.25 System Solution mg/2 budesonide mL 0.25 mg/2 inhala mL tion inhalation suspen suspension néstor Bupropion buPROP 0 U40338 active BuPROPion [facility] Hydrochlori ion Hydrochlorid Health de 100 MG 100 mg e System Oral Tablet oral buPROPion tablet 100 mg oral tablet Trelegy 266157 1 R10029 active Trelegy [facility] Ellipta 59824 {puff Ellipta Health inhalation (s)} System powder Albuterol albute 3 mL [id number] active Albuterol [facility] 0.83 MG/ML rol Sulfate Health Inhalant 2.5 System Solution mg/3 albuterol mL 2.5 mg/3 mL (0.083 (0.083%) %) inhalation inhala solution tion soluti on Cyclosporin Restas 0 B37973 active Restasi s [facility] e 0.5 MG/ML is Health Ophthalmic 0.05% System Suspension ophtha [Restasis] lmic Restasis emulsi 0.05% on ophthalmic emulsion cetirizine cetiri 1 F74833 active All Day [facility] hydrochlori zine {tab( Allergy Heal th de 10 MG 10 mg s)} System Oral Tablet oral cetirizine tablet 10 mg oral tablet Zinc Zinc 1 H47660 active Zinc [facility] Sulfate 140 140 mg {tab( Healt h MG Oral (as s)} System Tablet Zinc elemen 140 mg (as stefan elemental zinc zinc 50 mg) 50 mg) oral tablet oral tablet Prednisone predniSONE 40 [id number] active predniSONE; 40 milligram(s) orally once a day Ordered: 05-Jun-2020 [facility] predniSONE mg Quantity: 0 Nneka Morris [facility] Refills: 0 System Insurance Providers Payer name Policy type Policy ID Covered Covered democrat's Policy P oscar / Coverage democrat ID relationship to Wu Inf ormation type wu MEDICAID [id number] SP [id number] MEDICARE [id number] SP [id number] C61 Medicaid Medicaid [id number] 1 [id number] Medicare Part Medicare [id number] 1 [id number] B Outpatient HEALTH FIRST [id number] SP [id number] B MEDICAID [id number] SP [id number] HEALTH FIRST [id number] SP [id number] B W [id number] 01 [id number] C61 HEALTH FIRST [id number] SP [id number] B AETNA MEDICARE [id number] SP [id number] MEDICAID [id number] SP [id number] HEALTH FIRST [id number] SP [id number] MEDICARE [id number] SP [id number] MEDICAID [id number] SP [id number] AETNA MEDICARE [id number] SP [id number] MEDICARE [id number] SP [id number] A MEDICAID [id number] SP [id number] MEDICARE [id number] SP [id number] A [facility] HE[facility] [id number] SP [id number] PARTNERS MEDICAID [id number] SP [id number] MEDICARE [id number] SP [id number] MEDICAID [id number] MEDICARE PT [id number] O/P Problems, Conditions, and Diagnoses Code Display Name Description Problem Type Effective Dates Data Source(s) M20.42 Other hammer Other acquired Diagnosis 06/05/2020 S - Mo unt toe(s) hammer toe of 07:17:[address] [facility] (acquired), left left foot foot M20.12 Hallux valgus Acquired hallux Diagnosis 06/05/2020 [facility] (acquired), left valgus of left 07:17:[address] [facility] foot foot [id number] Correction, Correction, Diagnosis 06/05/2020 [facility] hallux valgus hallux valgus 07:17:00 AM [facility] (bunionectomy), (bunionectomy), with with sesamoidectomy, sesamoidectomy, when performed; when performed; with resection of with resection of proximal phalanx proximal phalanx base, when base, when performed, any performed, any method method M21.612 Bunion of left Bunion of great Diagnosis 06/05/2020 [facility] foot toe of left foot 07:17:00 AM [facility] Z11.59 Encounter for Screening for Diagnosis 06/03/2020 S - Mo unt screening for viral disease 09:43:00 AM [facility] other viral diseases F33.1 Major depressive MAJOR DEPRESSIVE Diagnosis 10/28/2019 int [place] disorder, DISORDER, 10:24:00 AM EST Medical C enter recurrent, RECURRENT, moderate MODERATE Diagnosis [facility] ([facility]) Diagnosis [facility] ([facility]) Diagnosis [facility] ([facility]) Surgeries/Procedures Procedure Description Date Indications Data Source(s) XR Foot AP + Lateral + 06/05/2020 [facility] Oblique-Left XR Foot AP + 02:21:00 PM EDT System Lateral + Oblique-Left - 06/05/2020 02:21:00 PM EDT XR Fluoroscopy < 1 Hr XR 06/05/2020 [facility] Fluoroscopy < 1 Hr 09:24:00 AM EDT System - 06/05/2020 09:24:00 AM EDT Venipuncture 06/03/2020 [facility] Heal th 10:21:59 AM EDT System - 06/03/2020 12:00:19 PM EDT OFFICE/OUTPATIENT VISIT, 05/23/2020 [facility] ([facility] EST 12:00:00 AM EDT [facility] 05/23/2020 [place]) 12:00:00 AM EDT Individual Psychotherapy 03/26/2020 [facility] ([facility] (30 Min) 12:00:00 AM EDT [facility] 03/26/2020 [place]) 12:00:00 AM EDT Individual Psychotherapy 03/20/2020 [facility] ([facility] (30 Min) 12:00:00 AM EDT [facility] 03/20/2020 [place]) 12:00:00 AM EDT Individual Psychotherapy 03/12/2020 [facility] ([facility] (30 Min) 12:00:00 AM EDT [facility] 03/12/2020 [place]) 12:00:00 AM EDT Individual Psychotherapy 03/06/2020 [facility] ([facility] (30 Min) 12:00:00 AM EDT [facility] 03/06/2020 [place]) 12:00:00 AM EDT Individual Psychotherapy 02/20/2020 [facility] ([facility] (30 Min) 12:00:00 AM EDT [facility] 02/20/2020 [place]) 12:00:00 AM EDT Individual Psychotherapy 02/13/2020 [facility] ([facility] (30 Min) 12:00:00 AM EDT [facility] 02/13/2020 [place]) 12:00:00 AM EDT Individual Psychotherapy 02/06/2020 [facility] ([facility] (30 Min) 12:00:[address] [facility] - 02/06/2020 [facility]) 12:00:00 AM EDT Individual Psychotherapy 01/23/2020 [facility] ([facility] (30 Min) 12:00:[address] [facility] - 01/23/2020 [place]) 12:00:00 AM EDT Individual Psychotherapy 01/16/2020 [facility] ([facility] (30 Min) 12:00:[address] [facility] - 01/16/2020 [place]) 12:00:00 AM EDT Individual Psychotherapy 01/09/2020 [facility] ([facility] (45 Min) 12:00:[address] [facility] - 01/09/2020 [place]) 12:00:00 AM EDT Individual Psychotherapy 01/01/2020 [facility] ([facility] (45 Min) 12:00:00 AM EDT [facility] 01/01/2020 [place]) 12:00:00 AM EDT OFFICE/OUTPATIENT VISIT, 12/29/2019 [facility] ([facility] EST 12:00:00 AM EDT [facility] 12/29/2019 [place]) 12:00:00 AM EDT Individual Psychotherapy 12/07/2019 [facility] ([facility] (45 Min) 12:00:[address] [facility] - 12/07/2019 [place]) 12:00:00 AM EST Individual Psychotherapy 11/20/2019 [facility] ([facility] (45 Min) 12:00:00 AM EST [facility] 11/20/2019 [place]) 12:00:00 AM EST Individual Psychotherapy 11/09/2019 [facility] TG[facility] ([facility] (45 Min) 12:00:00 AM EST [facility] 11/09/2019 [place]) 12:00:00 AM EST Individual Psychotherapy 11/03/2019 [facility] ([facility] (30 Min) 12:00:[address] [facility] - 11/03/2019 [place]) 12:00:00 AM EST OFFICE/OUTPATIENT VISIT, 10/30/2019 [facility] ([facility] 12:00:00 AM EST [facility] 10/30/2019 [place]) 12:00:00 AM EST Individual Psychotherapy 10/19/2019 [facility] ([facility] (45 Min) 12:00:00 AM EST [facility] 10/19/2019 [place]) 12:00:00 AM EST Individual Psychotherapy 10/12/2019 [facility] TG[facility] ([facility] (45 Min) 12:00:[address] [facility] - 10/12/2019 [place]) 12:00:00 AM EST Individual Psychotherapy 09/19/2019 [facility] ([facility] (45 Min) 12:00:[address] [facility] - 09/19/2019 [place]) 12:00:00 AM EST OFFICE/OUTPATIENT VISIT, 09/04/2019 [facility] ([facility] 12:00:[address] [facility] - 09/04/2019 [place]) 12:00:00 AM EST Individual Psychotherapy 09/04/2019 [facility] TG[facility] ([facility] (45 Min) 12:00:[address] [facility] - 09/04/2019 [place]) 12:00:00 AM EST Individual Psychotherapy 08/08/2019 [facility] ([facility] (45 Min) 12:00:[address] [facility] - 08/08/2019 [place]) 12:00:00 AM EST Individual Psychotherapy 07/21/2019 [facility] ([facility] (45 Min) 12:00:00 AM EDT [facility] 07/21/2019 [place]) 12:00:00 AM EDT OFFICE/OUTPATIENT VISIT, 07/07/2019 [facility] ([facility] 12:00:[address] [facility] - 07/07/2019 [place]) 12:00:00 AM EDT Individual Psychotherapy 07/07/2019 [facility] TG[facility] ([facility] (30 Min) 12:00:00 AM EDT [facility] 07/07/2019 [place]) 12:00:00 AM EDT Individual Psychotherapy 06/20/2019 [facility] TG[facility] ([facility] (45 Min) 12:00:[address] [facility] - 06/20/2019 [place]) 12:00:00 AM EDT OFFICE/OUTPATIENT VISIT, 06/07/2019 [facility] 12:00:[address] [facility] - 06/07/2019 [place]) 12:00:00 AM EDT Individual Psychotherapy 06/06/2019 N[facility] TG[facility] ([facility] (45 Min) 12:00:[address] [facility] - 06/06/2019 [place]) 12:00:00 AM EDT Individual Psychotherapy 05/23/2019 [facility] TG[facility] ([facility] (45 Min) 12:00:00 AM EDT [facility] 05/23/2019 [place]) 12:00:00 AM EDT Individual Psychotherapy 05/08/2019 N[facility] TGEN ([facility] (30 Min) 12:00:[address] [facility] - 05/08/2019 [place]) 12:00:00 AM EDT OFFICE/OUTPATIENT VISIT, 03/31/2019 [facility] ([facility] 12:00:00 AM EDT [facility] 03/31/2019 [place]) 12:00:00 AM EDT Individual Psychotherapy 03/31/2019 N[facility] TGEN ([facility] (45 Min) 12:00:[address] [facility] - 03/31/2019 [place]) 12:00:00 AM EDT Individual Psychotherapy 03/06/2019 N[facility] TGEN ([facility] (30 Min) 12:00:[address] [facility] - 03/06/2019 [place]) 12:00:00 AM EDT OFFICE/OUTPATIENT VISIT, 03/02/2019 [facility] ([facility] 12:00:00 AM EDT [facility] 03/02/2019 [place]) 12:00:00 AM EDT Individual Psychotherapy 01/10/2019 [facility] ([facility] (45 Min) 12:00:[address] [facility] - 01/10/2019 [place]) 12:00:00 AM EDT Individual Psychotherapy 12/22/2018 [facility] ([facility] (45 Min) 12:00:[address] [facility] - 12/22/2018 [place]) 12:00:00 AM EDT Individual Psychotherapy 12/08/2018 [facility] ([facility] (45 Min) 12:00:[address] [facility] - 12/08/2018 [place]) 12:00:00 AM EST OFFICE/OUTPATIENT VISIT, 11/15/2018 [facility] 12:00:[address] [facility] - 11/15/2018 [place]) 12:00:00 AM EST Individual Psychotherapy 11/15/2018 [facility] TG[facility] ([facility] (45 Min) 12:00:00 AM EST [facility] 11/15/2018 [place]) 12:00:00 AM EST Individual Psychotherapy 09/01/2018 [facility] ([facility] (45 Min) 12:00:00 AM EST [facility] 09/01/2018 [place]) 12:00:00 AM EST Results ID Date Data Source [id number] 06/09/2020 02:15:07 AM EDT [facility] Name Value Range Interpretation Description Data Sup porting Code Source(s) Document(s ) 63820-1 NEGATIVE Testing Normal (applies COVID-19.. [facility] was performed to non-numeric Health Syst em using Best ID results) NOW COVID-19, an isothermal nucleic acid amplification technology for the qualitative detection of nucleic acid from the SARS-CoV-2 viral RNA in respiratory specimens. The ID NOW COVID-19 test has been approved by the Food and Drug Administration (FDA) under an Emergency Use Authorization for use by authorized laboratories. Reference Range: NEGATIVE . ID Date Data Source [id number] 06/09/2020 02:15:07 AM EDT [facility] Name Value Range Interpretation Description Data Sup porting Code Source(s) Document(s ) Leukocytes 20.0 Above high WBC Count [facility] [#/volume] in {10^3_uL normal Health Unspecified } System specimen by Automated count Erythrocytes 4.48 Normal (applies RBC Count [facility] [#/volume] in {10^6_uL to non-numeric Health Blood by } results) System Automated count Hemoglobin 11.4 Below low normal Hemoglobin [facility] [Mass/volume] in {gm/dL} Health Blood System Erythrocyte mean 25.4 pg Below low normal MCH [facility] corpuscular Health hemoglobin System [Entitic mass] by Automated count Erythrocyte mean 80.6 fl Below low normal MCV [facility] corpuscular Health volume [Entitic System volume] by Automated count Hematocrit 36.1 % Normal (applies Hematocrit [facility] [Volume to non-numeric Health Fraction] of results) System Blood Erythrocyte mean 31.6 Below low normal MCHC [facility] corpuscular {gm/dL} Health hemoglobin System concentration [Mass/volume] by Automated count Erythrocyte 17.4 % Above high RDW-CV [facility] distribution normal Health width [Entitic System volume] by Automated count Platelet mean 9.4 fl Normal (applies MPV [facility] volume [Entitic to non-numeric Health volume] in Blood results) System by Automated count Platelets 332 Normal (applies Platelet Count [facility] [#/volume] in {10^3_uL to non-numeric Health Plasma by } results) System Automated count Neutrophils 15.5 Above high Neutrophil # [facility] [#/volume] in {10^3_uL normal Health Body fluid } System Monocytes 1.3 Above high Monocyte # [facility] [#/volume] in {10^3_uL normal Health Blood by Manual } System count Eosinophils 0.07 Normal (applies Eosinophil # [facility] [#/volume] in {10^3_uL to non-numeric Health Blood } results) System Basophils 0.06 Normal (applies Basophil # [facility] [#/volume] in {10^3_uL to non-numeric Health Blood by } results) System Automated count Lymphocyte 2.9 Normal (applies Lymphocyte # [facility] percent {10^3_uL to non-numeric Health differential } results) System count (procedure) Eosinophils/100 0.4 % Normal (applies Eosinophil % Prashant hakan leukocytes in to non-numeric Health Unspecified results) System specimen Monocytes/100 6.6 % Normal (applies Monocyte % [facility] leukocytes in to non-numeric Health Blood results) System Neutrophils/100 77.6 % Above high Neutrophil % [facility] leukocytes in normal Health Blood by System Automated count Lymphocytes 14.5 % Below low normal Lymphocyte % [facility] [#/volume] in Health Blood by System Automated count Basophils/100 0.3 % Normal (applies Basophil % [facility] leukocytes in to non-numeric Health Unspecified results) System specimen by Manual count ImmatureGranuloc 0.6 % Normal (applies Immature [facility] ytes% to non-numeric Granulocytes % Health results) System ImmatureGranuloc 0.12 Above high Immature [facility] ytes# {10^3_uL normal Granulocytes # Health } System Nucleated 0.0 Normal (applies NRBC % [facility] erythrocytes {/100_WB to non-numeric Health [#/volume] in C} results) System Body fluid NRBC# 0.00 Below low normal NRBC # [facility] {10^3_uL Health } System ID Date Data Source [id number] 06/09/2020 02:15:07 AM EDT [facility] Name Value Range Interpretation Description Data Sup porting Code Source(s) Document(s ) Chloride 107 Normal (applies Chloride, [facility] [Moles/volume mmol/L to non-numeric Serum Health Syst em ] in Serum or results) Plasma Potassium 3.9 Normal (applies Potassium, [facility] [Mass/volume] mmol/L to non-numeric Serum Health Syst em in Serum or results) Plasma Sodium 143 Normal (applies Sodium, Serum [facility] [Moles/volume mmol/L to non-numeric Health Syst em ] in Serum or results) Plasma Carbon 26.0 Normal (applies CO2, Serum [facility] dioxide, mmol/L to non-numeric Health System total results) [Moles/volume ] in Serum or Plasma Glucose 80 mg/dL Normal (applies Glucose, Serum [facility] [Mass/volume] to non-numeric Health Syst em in Serum or results) Plasma Urea nitrogen 14 mg/dl Normal (applies Blood Urea [facility] [Mass/volume] to non-numeric Nitrogen, Health Syst em in Serum or results) Serum Plasma Creatinine 0.80 Normal (applies Creatinine, [facility] [Mass/volume] mg/dl to non-numeric Serum Health Syst em in Serum or results) Plasma Anion gap in 10.00 Normal (applies Anion Gap [facility] Serum or mmol/L to non-numeric Health System Plasma results) Calcium 9.1 Normal (applies Calcium, Total [facility] [Mass/volume] mg/dl to non-numeric Serum Health Syst em in Serum or results) Plasma ID Date Data Source [id number] 06/09/2020 02:15:07 AM EDT [facility] Name Value Range Interpretation Description Data Sup porting Code Source(s) Document(s ) aPTT in Blood 23.5 Normal (applies Activated [facility] by Coagulation {Seconds to non-numeric Partial Health assay } results) Thromboplastin System Time ID Date Data Source [id number] 06/09/2020 02:15:07 AM EDT [facility] Name Value Range Interpretation Description Data Sup porting Code Source(s) Document(s ) Prothrombintim 10.40 Normal (applies Prothrombin [facility](PT) {seconds to non-numeric time (PT) Health System } results) INR in Blood 0.99 Normal (applies INR Result [facility] by Coagulation {Ratio} to non-numeric Health Sys tem assay results) Normal = 0.7-1.1Therapeutic = 2.0-3.0Mec hanical Heart = 3.0-4.5 ID Date Data Source [id number] 06/09/2020 02:15:07 AM EDT [facility] Name Value Range Interpretation Description Data Sup porting Code Source(s) Document(s ) TissueExam Results for case # Normal (applies Tissue Exam [facility] [id number] to non-[facility] SURGICAL PATHOLOGY results) System REPORTCLINICAL INFORMATION: Left 2nd hammertoe with dislocation of metatarsal phalangeal joint and bunion.PREOPERATIV E DIAGNOSIS: Same. POSTOPERATIVE DIAGNOSIS: Same. FINAL DIAGNOSIS: Bunion, left foot and hammertoe, left 2nd (gross).GO/stGISHIRLEY VILLANUEVA MDElectronically Signed By: GROSS DESCRIPTION: In formalin, labeled "bone and soft tissue left foot", the specimen consists of a 1.5 x 1.5 x 0.5cm aggregate of multiple, scales pink smoothly amputated portions of bone and shaggy soft tissue. No sections are submitted, gross diagnosis only.MV/stPage 1 of 1Testing performed at [facility], [address] [place] [address]. ID Date Data Source [id number] 06/05/2020 02:21:00 PM EDT [facility] HISTORY : s/p left foot xray;COMPARISON: NoneFINDINGS:XR Foot Min 3 Views:SOFT TISSUES: No acute findings. No radiopaqu e foreign body.BONES/JOINTS: Staple fixation in the first proximalphalanx.Screw fixat ion in the first metatarsal distally. Percutaneouspin and plate and screw fixa tion spanningthe second MTP. Nearanatomic alignment. No acute hardware complicatio n. No acutefracture. No dislocation. Mildto moderate degenerativearthrosis. Plantar calcaneal enthesophyte.IMPRESSION:UncomplicatedORI F. at 1529 Reported and signedby: Luc Ag MDEnvision Physician ServicesSHCR DR LUC AG [place] [phone] Signed:Luc Ag, [id number] a t 15:28 EDTTel ,Service support , [phone] Name Value Range Interpretation Code Description Data Ruthie rce(s) Supporting Document(s ) ID Date Data Source [id number] 06/05/2020 09:24:00 AM EDT [facility] Fluoroscopy was performed under the dire ct supervision of thephysician performing the procedure. The total time offluoroscopi c exposure for the patient during the examination was39 seconds.A total number of 9images of the foot region were obtained todocument fluoroscopy.IMPRESSION:Fluoro scopyprovided.Electronically Signed:Jason Doug, at 15:09 EDTTel ,Service support , [phone] Name Value Range Interpretation Code Description Data Ruthie rce(s) Supporting Document(s ) ID Date Data Source [id number] 06/03/2020 10:15:00 AM EDT [facility] Name Value Range Interpretation Code Description Data Ruthie rce(s) Supporting Document(s ) COVID-19.. [facility] This lab was ordered by [facility] and reported by [facility]. ID Date Data Source [id number] 02/02/2020 12:00:00 AM EDT [facility] Name Value Range Interpretation Code Description Data Ruthie rce(s) Supporting Document(s ) 2019-nCoV [facility] RNA XXX MANUEL+probe- Imp This lab was ordered by [facility] and reported by [facility]. Procedure Social History Code Duration Value Status Description Data Source(s ) Smoking Unknown if ever completed Unknown if ever Filomena Reynoso smoked smoked [facility] Vital Signs ID Date Data Source UNK Name Value Range Interpretation Code Description Data Source(s) Body temperature 36.6 [place] 0 - 99.9 Normal (applies to 36.6 [place] [facility] non-numeric results) Heal th System Body temperature 98 [degF] 0 - 200 Normal (applies to 98 [degF] [facility] non-numeric results) [facility] Diastolic blood 71 mm[Hg] 0 - 999 Normal (applies to 71 mm[Hg] [facility] pressure non-numeric results) [facility]al th System Systolic blood 131 mm[Hg] 0 - 999 Normal (applies to 131 mm[Hg] [facility] pressure non-numeric results) [facility] Oxygen saturation 100 % 0 - 999 Normal (applies to 100 % [facility] Arterial [facility] non-numeric results) Health System by Pulse oximetry Respiratory rate 17 0 - 999 Normal (applies to 17 [facility] non-numeric results) [facility] Heart rate 82 0 - 999 Normal (applies to 82 [facility] non-numeric results) [facility] Body surface area 1.6 m2 1.6 m2 [facility] Derived from Health Syste m formula Body mass index 29.2 kg/m2 29.2 kg/m2 [facility] ([facility]) [Ratio] Health Syst em Body weight 68.03 kg 68.03 kg [facility] Body height 152.4 cm 152.4 cm [facility] Patient Treatment Plan of Care Planned Activity Planned Date Details Description Data Source (s) 12 HR Bupropion 05/23/2020 12:00:00 NEXTG EN ([facility] Hydrochloride 100 MG AM [facility] ) Tablet [Wellbutrin] 12 HR Bupropion 04/03/2020 12:00:00 NEXTG EN ([facility] Hydrochloride 100 MG AM [facility] ) Tablet [Wellbutrin] 12 HR Bupropion 12/29/2019 12:00:00 NEXTG EN ([facility] Hydrochloride 100 MG AM [facility] ) Tablet [Wellbutrin] Trazodone Hydrochloride 10/30/2019 12:00:00 NEXTGEN ([facility] 50 MG Oral Tablet AM [facility]) 12 HR Bupropion 10/30/2019 12:00:00 NEXTG EN ([facility] Hydrochloride 100 MG AM [facility] ) Tablet [Wellbutrin] 12 HR Bupropion 09/04/2019 12:00:00 NEXTG EN ([facility] Hydrochloride 100 MG AM [facility] ) Tablet [Wellbutrin] 12 HR Bupropion 07/07/2019 12:00:00 NEXTG EN ([facility] Hydrochloride 100 MG AM [facility] ) Tablet [Wellbutrin] 12 HR Bupropion 06/07/2019 12:00:00 NEXTG EN ([facility] Hydrochloride 100 MG AM [facility] ) Tablet [Wellbutrin] 12 HR Bupropion 06/07/2019 12:00:00 NEXTG EN ([facility] Hydrochloride 100 MG AM [facility] ) Tablet [Wellbutrin] 12 HR Bupropion 06/01/2019 12:00:00 NEXTG EN ([facility] Hydrochloride 100 MG AM [facility] ) Tablet [Wellbutrin] 12 HR Bupropion 03/31/2019 12:00:00 NEXTG EN ([facility] Hydrochloride 100 MG AM [facility] ) Tablet [Wellbutrin] 12 HR Bupropion 03/02/2019 12:00:00 NEXTG EN ([facility] Hydrochloride 100 MG AM [facility] ) Tablet [Wellbutrin] buspirone hydrochloride 5 12/13/2018 12:00:00 [facility]GEN ([facility] MG Oral Tablet AM [facility]) 12 HR Bupropion 12/13/2018 12:00:00 NEXTG EN ([facility] Hydrochloride 100 MG AM [facility] ) Tablet [Wellbutrin] buspirone hydrochloride 5 11/15/2018 12:00:00 [facility]GEN ([facility] MG Oral Tablet AM [facility]) 12 HR Bupropion 11/15/2018 12:00:00 NEXTG EN ([facility] Hydrochloride 100 MG AM [facility] ) Tablet [Wellbutrin] Zinc Sulfate 140 MG Oral [facility] Tablet System Prednisone [facility] Cyclosporine 0.5 MG/ML [facility] Ophthalmic Suspension System [Restasis] cetirizine hydrochloride [facility] 10 MG Oral Tablet System Bupropion Hydrochloride [facility] 100 MG Oral Tablet System Trelegy Ellipta [facility] inhalation powder System Levothyroxine Sodium [facility] 0.075 MG Oral Tablet System Budesonide 0.125 MG/ML [facility] Inhalant Solution System Albuterol 0.83 MG/ML [facility] Inhalant Solution System Ventolin HFA 90 mcg/inh [facility] inhalation aerosol System Famotidine 40 MG Oral [facility] Tablet System atorvastatin 10 MG Oral [facility] Tablet System montelukast 10 MG Oral [facility] Tablet System
[2020-06-24 02:00] VITALS: BMI 29.2
[2020-06-24] MEDS ORDERED: SODIUM CHLORIDE 2,041 ML IV ONE (02:28)
[2020-06-24] MEDS ORDERED: ACETAMINOPHEN 1000 MG/100 ML VIAL (NON FORMULARY) IVPB ONE (02:29)
[2020-06-24] MEDS ORDERED: ACETAMINOPHEN INJECTION 100 ML IVPB ONE (03:00)
[2020-06-24] MEDS ORDERED: MEROPENEM 1 GM in DEXTROSE 5%-WATER 100 ML IVPB ONE (03:12)
--- NOTE | 2020-06-24 03:13 | PDOC ---
History of Present Illness - General Chief Complaint: SIRS, Suspected/Possible Stated Complaint: FEVER Time Seen by Provider: 06/24/20 01:25 History Source: Patient Exam Limitations: No Limitations - History of Present Illness Initial Comments: 06/24/20 03:11 65F PMH HTN, HLD, COPD, Hypothyroid c/o 2 days fever and fatigue. Home oral temps from 99 to low 100s. Had left foot surgery due to toe dislocation on 06/05/[address]. Pt denies cough, wheezes, sore throat, chest pain, sob, n/v/d, dysuria, headaches. Allergies reviewed w/ patient. Past History - Medical History Allergies/Adverse Reactions: Allergies Allergy/AdvReac Type Severity Reaction Status Date / Time Quinolones Allergy Severe Difficulty Verified 05/08/20 16:39 Breathing Penicillins Allergy Intermediate Rash Verified 05/08/20 16:39 fluoroquinolones Allergy Severe Difficulty Uncoded 05/08/20 16:39 Breathing Home Medications: Ambulatory Orders Albuterol 2.5/Ipratropium 0.5 [Duoneb -] 1 neb IH QID 06/24/20 Albuterol Sulfate Inhaler - [Ventolin Hfa Inhaler -] 2 inh PO Q6H 06/24/20 Atorvastatin Ca [Lipitor] 20 mg PO HS 06/24/20 Budesonide [Pulmicort 0.25 mg Nebulizer -] 1 neb NEB ONCE 06/24/20 Bupropion HCl 100 mg PO DAILY 06/24/20 Cetirizine HCl 10 mg PO DAILY 06/24/20 Famotidine [Pepcid -] 40 mg PO DAILY 06/24/20 Levothyroxine [Synthroid -] 88 mcg PO DAILY 06/24/20 Losartan Potassium 25 mg PO DAILY 06/24/20 Montelukast Na [Singulair -] 10 mg PO HS 06/24/20 predniSONE [Deltasone -] 5 mg PO DAILY 06/24/20 Anemia: No Asthma: Yes Cancer: No Cardiac Disorders: No CVA: No COPD: Yes (ON CPAP) CHF: No Dementia: No 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) GI Disorders: No Disorders: No HTN: Yes Hypercholesterolemia: Yes Liver Disease: No Seizures: No Thyroid Disease: No - Surgical History Abdominal Surgery: No Appendectomy: No Cardiac Surgery: No Cholecystectomy: No Lung Surgery: No Neurologic Surgery: No Orthopedic Surgery: Yes (numerous foot surgeries, right rotator cuff) - Reproductive History Is Patient Now?: No - Immunization History Immunization Up to Date: No - Psycho-Social/Smoking History Smoking History: Current every day smoker Have you smoked in the past 12 months: No Number of Cigarettes Smoked Daily: 10 If you are a former smoker, when did you quit?: 02/17 Information on smoking cessation initiated: No 'Breaking Loose' booklet given: 02/27/16 - Substance Abuse Hx (Audit-C & DAST Scrn) How often the patient has a drink containing alcohol: Never Score: In Men: 4 or > Positive; In Women: 3 or > Positive: 0 Screen Result (Pos requires Nsg. Audit-10AR): Negative In the last yr the pt used illegal drug/Rx for NonMed reason: No Score: Yes response is considered Positive: 0 Screen Result (Positive result requires Nsg. DAST-10): Negative Review of Systems - Review of Systems Comments:: 06/25/20 08:04 CONSTITUTIONAL: + fevers HEENT: Denies headache, lightheadedness, dizziness, changes in vision / hearing, sore throat, rhinorrhea RESP: Denies SOB, cough, wheezing CARD: Denies chest pain, palpitations GI: Denies N / V / D, inability to tolerate PO : Denies dysuria, hematuria, frequency NEURO: Denies numbness, tingling, weakness MSK: endorses pain of the left foot s/p surgery and hardware SKIN: Denies rashes *Physical Exam - Vital Signs Last Vital Signs Temp Pulse Resp BP Pulse Ox 108 H 20 128/73 96 06/24/20 01:54 06/24/20 01:54 06/24/20 01:54 06/24/20 01:54 - Physical Exam 06/25/20 08:04 GEN: Well appearing, NAD, comfortable. AAOx3. HEENT: NC/AT, EOMI, PERRL. No facial asymmetry. Moist mucous membranes. Normal voice. Supple neck w/ FROM. CV: S1/S2, RRR, no m/r/g LUNG: adequate air flow throughout w/ scattered expiratory wheezes GI: Soft, ndnt, +BS, no guarding, no rebound. MSK: surgical dressing undone on the left foot; left medial leg warmer to palpation vs lateral and vs right leg; no obvious erythema. SKIN: Warm, dry, no rashes appreciated. PSYCH: Normal mood and affect. NEURO: Moving all extremities ED Treatment Course - LABORATORY CBC & Chemistry Diagram: 06/24/20 02:50 06/24/20 02:50 - RADIOLOGY Radiology Studies Ordered: Category Date Time Status CHEST X-RAY PORTABLE* [RAD] Stat Radiology 06/24/20 02:08 Ordered - Medications Given in the ED: ED Medications Discontinued Medications Generic Name Dose Route Start Last Admin Trade Name Freq PRN Reason Stop Dose Admin Acetaminophen 1,000 mg 06/24/20 02:29 06/24/20 03:01 Ofirmev Injection - IVPB 06/24/20 02:30 1,000 mg ONCE ONE Administration Medical Decision Making - Medical Decision Making 06/25/20 08:04 65F w/ fevers. Has hardware in left 2nd toe after dislocation surgery on 06/05/20. left mireles feels warm vs right; especially medial aspect. sepsis w/u admit abx 06/24/20 04:44 labs reviewed; elevated WBC endorsed to Dr. Burrell for admit Discharge - Discharge Information Problems reviewed: Yes Clinical Impression/Diagnosis: COPD exacerbation, Cellulitis, Post op infection Condition: Fair - Admission Yes - Follow up/Referral - Patient Discharge Instructions - Post Discharge Activity
[2020-06-24 03:17] LABS: BASO % 0.6 % (0-2.0); EOS % 0.5 % (0-4.5); HEMATOCRIT 31.4 % (32.4-45.2); LYMPH % 15.5 % (8-40); MCH 24.7 pg (25.7-33.7); MEAN CELL VOLUME 77.4 fl (80-96); MONO % 8.5 % (3.8-10.2); NEUT % 74.9 % (42.8-82.8); PLATELET COUNT 352 K/MM3 (134-434); RBC 4.06 M/mm3 (3.60-5.2); RDW 17.5 % (11.6-15.6); WHITE BLOOD COUNT 17.6 K/mm3 (4.0-10.0)
[2020-06-24] MEDS ORDERED: MEROPENEM 1 GM VIAL (RESTRICTED TO ID) IVPB ONE (03:29)
--- NOTE | 2020-06-24 03:30 | PDOC ---
Attending Attestation - Resident Resident Name: Janusz Santos - ED Attending Attestation I have performed the following: I have examined & evaluated the patient, The case was reviewed & discussed with the resident, I agree w/resident's findings & plan - HPI HPI: 06/24/20 05:38 Pt comes with fever s/p foot surgery done by Dr. Pelayo. 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 Howeverm, pt has fever and chills. - Physicial Exam PE: 06/24/20 05:39 Pt has normal heart lungs + expiratory wheeze abd soft NT ND no flank pain Left foot dorsal aspect warmth, radiating to anterior mireles. + cellulitis - Medical Decision Making 06/24/20 05:40 Pt still smokes cigarettes. Pt completed her antibiotics and she failed treatment. [facility] needed to r/o osteomyelitis Discharge - Discharge Information Problems reviewed: Yes Clinical Impression/Diagnosis: COPD exacerbation, Cellulitis, Post op infection - Follow up/Referral - Patient Discharge Instructions - Post Discharge Activity
[2020-06-24 03:40] LABS: INR 1.16 (0.83-1.09); PROTHROMBIN TIME (PATIENT) 13.7 SEC (9.7-13.0)
[2020-06-24 03:42] LABS: ACTIVATED PTT 30.4 SECONDS (25.2-36.5)
[2020-06-24 03:43] LABS: ALBUMIN 2.7 g/dl (3.4-5.0); BILIRUBIN,TOTAL 0.5 mg/dL (0.2-1); BLOOD UREA NITROGEN 11.2 mg/dL (7-18); CALCIUM 8.1 mg/dL (8.5-10.1); CREATININE 0.8 mg/dL (0.55-1.3); POTASSIUM 4.4 mmol/L (3.5-5.1); TOT PROT 7.1 g/dl (6.4-8.2)
--- OUTSIDE RECORDS SUMMARY | 2020-06-24 04:53 | XMS ---
:1955 Author Organization [facility] Care Team Providers Name Role Phone [facility], [facility] Unavailable Unavailable Ricky Whipple Unavailable [phone] ERROL STANLEY Unavailable Unavailable CIELO BLANCHARD Unavailable Unavailable Khadar Myles Unavailable [phone] Elliott Nfor, Bijou DPM Unavailable Unavailable Elliott Nfor, Bijou DPM Unavailable Unavailable Elliott Nfor, Bijou DPM Unavailable Unavailable Elliott Nfor, Bijou DPM Unavailable Unavailable Elliott Nfor, Bijou DPM Unavailable Unavailable Elliott Nfor, Bijou DPM Unavailable Unavailable Other, Doctor Unavailable Unavailable Cielo Torres Unavailable [phone] Cielo Torres Unavailable [phone] NEHA CARBALLO Unavailable Unavailable Re-disclosure Warning The [...] is protected by Article 27-F of the [facility] Public Health law. If you continue you may haveaccess to information: Regarding HIV / AIDS; Provided by facilities licensed or operated by the [facility] Office of Mental Health; or Provided by the [facility] Office for People With Developmental Disabilities. If such information is present, then the following [facility] mandated warning applies: This information has been [...] law may result in a fine or long-term sentence or both. A general authorization for the release of medical or other information is NOT sufficient authorization for further disclosure. Allergies and Adverse Reactions Type Description Substance Reaction Status Data Source(s ) Drug allergy Quinolones Quinolones [facility] Drug allergy Penicillins Penicillins [facility] Food allergy No Known Food No Known Food [facility] Allergies Allergies [facility] [id number] Levaquin Respiratory [facility] Fluoroquinolones [id number] penicillin G Localized Active [facility] H ealth potassium superficial swelling Syst em [...] 11:59:00 PM EDT Patient discharged. OutpatientOFFICE/OUTPATIENT Attender: [facility] 05/23/2020 NEXTGEN VISIT, [facility] 10:50:00 AM ([facility] EDT - [facility] 05/23/2020 Medical 10:50:00 AM Center) EDT [facility] GSI (Huds on [facility] 11:30:01 AM [facility]) Patient admitted. Attender: [facility] 04/03/2020 NEXTG EN ([facility] 10:18:00 AM EDT - [facility] 04/03/2020 Medical 10:18:00 AM EDT Center) Individual Attender: [facility] 03/26/2020 NEXTGE N ([facility] 03:33:00 PM EDT - [place] [facility]) 03/26/2020 Medical 03:33:00 PM EDT Center) Individual Attender: [facility] 03/20/2020 NEXTGE N ([facility] 01:04:00 PM EDT - [place] [facility]) 03/20/2020 Medical 01:04:00 PM EDT Center) Individual Attender: [facility] 03/12/2020 NEXTGE N ([facility] 02:38:00 PM EDT - [place] [facility]) 03/12/2020 Medical 02:38:00 PM EDT Center) Individual Attender: [facility] 03/06/2020 NEXTGE N ([facility] 12:07:00 PM EDT - [place] [facility]) 03/06/2020 Medical 12:07:00 PM EDT Center) Individual Attender: [facility] 02/20/2020 NEXTGE N ([facility] 10:14:00 AM EDT - [place] [facility]) 02/20/2020 Medical 10:14:00 AM EDT Center) Individual Attender: [facility] 02/13/2020 NEXTGE N ([facility] 02:24:00 PM EDT - [place] [facility]) 02/13/2020 Medical 02:24:00 PM EDT Center) Individual Attender: [facility] 02/06/2020 NEXTGE N ([facility] 10:03:00 AM EDT - [place] [facility]) 02/06/2020 Medical 10:03:00 AM EDT Center) Attender: [facility] 01/30/2020 NEXTGE N ([facility] 10:22:00 AM EDT - [facility] 01/30/2020 Medical 10:22:00 AM EDT Center) Individual Attender: [facility] 01/23/2020 NEXTGE N ([facility] 10:06:00 AM EDT - [place] [facility]) 01/23/2020 Medical 10:06:00 AM EDT Center) Individual Attender: [facility] 01/16/2020 NEXTGE N ([facility] 12:08:00 PM EDT - [place] [facility]) 01/16/2020 Medical 12:08:00 PM EDT Center) Individual Attender: [facility] 01/09/2020 NEXTGE N ([facility] 12:37:00 PM EDT - [place] [facility]) 01/09/2020 Medical 12:37:00 PM EDT Center) Individual Attender: [facility] 01/01/2020 NEXTGE N ([facility] 11:46:00 AM EDT - [place] [facility]) 01/01/2020 Medical 11:46:00 AM EDT Center) OutpatientOFFICE/OUTP Attender: [facility] 12/29/2019 NEXTGEN ([facility] ATIENT VISIT, EST [facility] 09:19:00 AM EDT - [place] 12/29/2019 Medical 09:19:00 AM EDT Center) Individual Attender: [facility] 12/07/2019 NEXTGE N ([facility] 10:40:00 AM EST - [place] [facility]) 12/07/2019 Medical 10:40:00 AM EST Center) Outpatient Attender: [id number] 11/21/2019 GSI ([facility]uds on [facility] 11:55:55 AM EST [facility]) Patient admitted. Individual Attender: [facility] 11/20/2019 NEXTGE N ([facility] 03:31:00 PM EST - [place] [facility]) 11/20/2019 Medical 03:31:00 PM EST Center) Individual Attender: [facility] 11/09/2019 NEXTGE N ([facility] 01:34:00 PM EST - [place] [facility]) 11/09/2019 Medical 01:34:00 PM EST Center) Outpatient Attender: [id number] 11/06/2019 [facility]31 AM [facility]) Patient admitted. Individual Attender: [facility] 11/03/2019 NEXTGEN ( [facility] 12:03:00 PM [facility] Clinic EST - Center) 11/03/2019 12:03:00 PM EST OutpatientOFFICE/O Attender: [facility] 10:18:00 AM [facility] EST Clinic EST - Center) 10/30/2019 10:18:00 AM EST Outpatient Attender: CIELO Biggs 10/28/2019 [facility] 10:24:00 AM Medical Cent er JELENAAdmitter: EST CIELO ESQUIVEL Attender: [facility]28[facility]2019 [facility] 10:24:00 AM [place] [facility] EST - Center) 10/28/2019 10:24:00 AM EST Individual Attender: [facility] 10/19/2019 NEXTGEN ( [facility] 05:26:00 PM [facility] Clinic EST - Center) 10/19/2019 05:26:00 PM EST Individual Attender: [facility] 10/12/2019 NEXTGEN ( [facility] 11:35:00 AM [facility] Clinic EST - Center) 10/12/2019 11:35:00 AM EST Outpatient Attender: CIELO Biggs 10/12/2019 [facility] 10:24:00 AM Medical Cent er JELENAAdmitter: EST CIELO JACOBSA Individual Attender: [facility] 09/19/2019 NEXTGEN ( [facility] 01:39:00 PM [facility] Clinic EST - Center) 09/19/2019 01:39:00 PM EST Individual Attender: [facility] 09/04/2019 NEXTGEN ( [facility] 05:37:00 PM [facility]) Clinic EST - Center) 09/04/2019 05:37:00 PM EST OutpatientOFFICE/O Attender: [facility] 09/04/2019 NEXTGEN ([facility] UTPATIENT VISIT, [facility] 09:58:00 AM [place] EST Clinic EST - Center) 09/04/2019 09:58:00 AM EST Individual Attender: [facility] 08/08/2019 NEXTGEN ( [facility] 01:39:00 PM [facility] Clinic EST - Center) 08/08/2019 01:39:00 PM EST Individual Attender: [facility] 07/21/2019 NEXTGEN ( [facility] 12:50:00 PM [facility] Clinic EDT - Center) 07/21/2019 12:50:00 PM EDT Individual Attender: [facility] 07/07/2019 NEXTGEN ( [facility] 11:31:00 AM [facility] Clinic EDT - Center) 07/07/2019 11:31:00 AM EDT OutpatientOFFICE/O Attender: [facility] 07/07/2019 NEXTGEN ([facility] UTPATIENT VISIT, [facility] 09:31:00 AM [place] [facility] EST Clinic EDT - Center) 07/07/2019 09:31:00 AM EDT Outpatient Attender: 06/27/2019 WAITING ON Cubero JADEN, 06:00:00 AM [facility] C[facility] DAVIDAdmitter: EDT Care Jailyn CARBALLOeferrer: ERROL STANLEY WAITING ON DX CODES Individual Attender: [facility] 06/20/2019 NEXTGE N ([facility] 12:57:00 PM EDT - [place] [facility] Min) 06/20/2019 Center) 12:57:00 PM EDT OutpatientOFFICE/OUT Attender: [facility] 06/07/2019 NEXTGEN ([facility] PATIENT VISIT, EST [facility] 11:44:00 AM EDT - [facility] 06/07/2019 [place]) 11:44:00 AM EDT Individual Attender: [facility] 06/06/2019 NEXTGE N ([facility] 11:27:00 AM EDT - [place] [facility] Min) 06/06/2019 [place]) 11:27:00 AM EDT Attender: [facility] 06/01/2019 NEXTG EN [facility] 10:53:00 AM EDT [facility] 06/01/2019 [place]) 10:53:00 AM EDT Individual Attender: [facility] 05/23/2019 NEXTGE N ([facility] 12:31:00 PM EDT - [facility] Medical Min) 05/23/2019 [place]) 12:31:00 PM EDT Individual Attender: [facility] 05/08/2019 NEXTGE N ([facility] 05:33:00 PM EDT - [facility] Medical Min) 05/08/2019 [place]) 05:33:00 PM EDT Individual Attender: [facility] 03/31/2019 NEXTGE N ([facility] 12:49:00 PM EDT - [place] [facility] Min) 03/31/2019 [place]) 12:49:00 PM EDT OutpatientOFFICE/OUT Attender: [facility] 03/31/2019 NEXTGEN ([facility] PATIENT [facility]ISIT, EST [facility] 12:39:00 PM EDT [facility] 03/31/2019 [place]) 12:39:00 PM EDT Individual Attender: [facility] 03/06/2019 NEXTGE N ([facility] 01:01:00 PM EDT - [place] [facility] Min) 03/06/2019 [place]) 01:01:00 PM EDT OutpatientOFFICE/OUT Attender: [facility] 03/02/2019 NEXTGEN ([facility] PATIENT VISIT, EST [facility] 02:33:00 PM EDT - [facility] Medical 03/02/2019 [place]) 02:33:00 PM EDT Attender: [facility] 02/01/2019 NEXTG EN ([facility] 03:55:00 PM EDT - [place] [facility] 02/01/2019 [place]) 03:55:00 PM EDT Individual Attender: [facility] 01/10/2019 NEXTGE N ([facility] 06:05:00 PM EDT - [place] [facility] Min) 01/10/2019 [place]) 06:05:00 PM EDT Outpatient 12/23/2018 [facility] 07:46:00 AM EDT ([facility]) Individual Attender: [facility] 12/22/2018 NEXTGE N ([facility] 11:41:00 AM EDT - [place] [facility] Min) 12/22/2018 [place]) 11:41:00 AM EDT Attender: [facility] Health 12/13/2018 NEXTG EN ([facility] 10:26:00 AM EDT - [place] [facility] 12/13/2018 [place]) 10:26:00 AM EDT Individual Attender: [facility] 12/08/2018 NEXTGE N ([facility] 04:48:00 PM EST - [place] [facility] Min) 12/08/2018 [place]) 04:48:00 PM EST Individual Attender: [facility] 11/15/2018 NEXTGE N ([facility] 12:28:00 PM EST - [place] [facility] Min) 11/15/2018 [place]) 12:28:00 PM EST OutpatientOFFICE/OUT Attender: [facility] 11/15/2018 NEXTGEN ([facility] 10:[facility]:00 AM EST - [place] [facility] 11/15/2018 [place]) 10:02:00 AM EST Attender: [facility] 09/30/2018 NEXTG EN ([facility] 09:33:00 AM EST - [place] [facility] 09/30/2018 [place]) 09:33:00 AM EST Individual Attender: [facility] Mental [facility] 09/01/2018 NEXTGE N ([facility] 04:09:00 PM EST - [place] [facility] Min) 09/01/2018 [place]) 04:09:00 PM EST Attender: [facility] 11/05/2017 [facility]EXTGEN [facility] 10:05:00 AM EST - [place] [facility] 11/05/2017 Center) 10:05:00 AM EST Medications Medication Brand Start Product Dose Route Administrative Pharmacy [facility] Indications Reaction Description Data Name Date Form [...] Tablet tablet 00 AM every day at [facility] trazodone EST bedtime Center) 50 mg [...] tablet, 12 hr sustained-r elease 12 [facility] complet 12 HR NEXTGE N Bupropion [...] tablet, 12 hr sustained-r elease [address] [facility] ORAL complet 12 HR NEXTGE N Bupropion [...] tablet, 12 hr sustained-r elease [address] [facility] ORAL complet 12 HR NEXTGE N Bupropion [...] tablet, 12 hr sustained-r elease [address] [facility] ORAL complet 12 HR NEXTGE N Bupropion [...] tablet, 12 hr sustained-r elease [address] [facility] ORAL complet 12 HR NEXTGE N Bupropion [...] tablet, 12 hr sustained-r elease 12 HR [facility] ORAL complet 12 HR NEXTGE N Bupropion [...] tablet, 12 hr sustained-r elease [address] [facility] ORAL complet 12 HR NEXTGE N Bupropion [...] tablet, 12 hr sustained-r elease [address] [facility] ORAL complet 12 HR NEXTGE N Bupropion [...] mg tablet, 12 hr sustained-r elease Ventolin [id number] 2 [id number] active Ventolin H FA [facility] HFA 90 60981 {puff Health mcg/inh (s)} System inhalation aerosol Famotidine famoti 1 [id number] active Famotidi ne [facility] 40 MG Oral dine {tab( Health Tablet 40 mg s)} System famotidine oral 40 mg oral tablet tablet atorvastati atorva 1 W37240 active Lipitor [facility] n 10 MG statin {tab( Health Oral Tablet 10 mg s)} System atorvastati oral n 10 mg tablet oral tablet montelukast haresh 1 H07309 active Singula ir [facility] 10 MG Oral ukast {tab( Health Tablet 10 mg s)} System montelukast oral 10 mg oral tablet tablet Levothyroxi levoth 1 G30954 active Synthro id [facility] ne Sodium yroxin {tab( Health 0.075 MG e 75 s)} System Oral Tablet mcg levothyroxi (0.075 ne 75 mcg mg) (0.075 mg) oral oral tablet tablet Budesonide budeso 2 mL [id number] active Budesoni de [facility] 0.125 MG/ML nide Health Inhalant 0.25 System Solution mg/2 budesonide mL 0.25 mg/2 inhala mL tion inhalation suspen suspension néstor Bupropion buPROP 0 [id number] active BuPROPion [facility] Hydrochlori ion Hydrochlorid Health de 100 MG 100 mg e System Oral Tablet oral buPROPion tablet 100 mg oral tablet Trelegy 218612 1 J68493 active Trelegy [facility] Ellipta 93120 {puff Ellipta Health inhalation (s)} System powder Albuterol albute 3 mL J93174 active Albuterol [facility] 0.83 MG/ML rol Sulfate Health Inhalant 2.5 System Solution mg/3 albuterol mL 2.5 mg/3 mL (0.083 (0.083%) %) inhalation inhala solution tion soluti on Cyclosporin Restas 0 U03635 active Restasi s [facility] e 0.5 MG/ML is Health Ophthalmic 0.05% System Suspension ophtha [Restasis] lmic Restasis emulsi 0.05% on ophthalmic emulsion cetirizine cetiri 1 Z74207 active All Day [facility] hydrochlori zine {tab( Allergy Heal th de 10 MG 10 mg s)} System Oral Tablet oral cetirizine tablet 10 mg oral tablet Zinc Zinc 1 R48883 active Zinc [facility] Sulfate 140 140 mg {tab( Healt h MG Oral (as s)} System Tablet Zinc elemen 140 mg (as stefan elemental zinc zinc 50 mg) 50 mg) oral tablet oral tablet Prednisone predniSONE 40 [id number] active predniSONE; 40 milligram(s) orally once a day Ordered: 05-Jun-2020 [facility] predniSONE mg Quantity: 0 Nneka Morris [facility] Refills: 0 System Insurance Providers Payer name Policy type Policy ID Covered Covered alliance party's Policy P oscar / Coverage alliance party ID relationship to Wu Inf ormation type wu HEALTH FIRST [id number] SP [id number] B MEDICAID [id number] SP [id number] MEDICARE [id number] SP [id number] C61 MEDICAID [id number] SP [id number] Medicaid Medicaid [id number] Medicare Part Medicare [id number] 1 [id number] B Outpatient HEALTH FIRST [id number] SP [id number] B W [id number] 01 [id number] 01 [id number] [id number] HEALTH FIRST [id number] SP [id number] B AETNA MEDICARE [id number] SP [id number] MEDICAID [id number] SP [id number] HEALTH FIRST [id number] SP [id number] MEDICARE [id number] SP [id number] MEDICAID [id number] SP [id number] AETNA MEDICARE [id number] SP [id number] MEDICARE [id number] SP [id number] A MEDICAID [id number] SP [id number] MEDICARE [id number] SP [id number] A [facility] HEALTH [id number] SP [id number] PARTNERS MEDICAID [id number] SP [id number] MEDICARE [id number] SP [id number] A MEDICAID [id number] MEDICARE PT [id number] O/P Problems, Conditions, and Diagnoses Code Display Name Description Problem Type Effective Dates Data Source(s) M20.42 Other hammer Other acquired Diagnosis 06/05/2020 S - Mo unt toe(s) hammer toe of 07:17:00 AM [facility] (acquired), left left foot foot M20.12 Hallux valgus Acquired hallux Diagnosis 06/05/2020 [facility] (acquired), left valgus of left 07:17:00 AM [facility] foot foot 88333 Correction, Correction, Diagnosis 06/05/2020 [facility] hallux valgus hallux valgus 07:17:00 AM [facility] (bunionectomy), (bunionectomy), with with sesamoidectomy, sesamoidectomy, when performed; when performed; with resection of with resection of proximal phalanx proximal phalanx base, when base, when performed, any performed, any method method M21.612 Bunion of left Bunion of great Diagnosis 06/05/2020 [facility] foot toe of left foot 07:17:00 AM [facility] Z11.59 Encounter for Screening for Diagnosis 06/03/2020 S - Mo unt screening for viral disease 09:43:00 AM [facility] other viral diseases F33.1 Major depressive MAJOR DEPRESSIVE Diagnosis 10/28/2019 int [place] disorder, DISORDER, 10:24:00 AM EST Medical C enter recurrent, RECURRENT, moderate MODERATE Diagnosis NEXTGEN ([facility]) Diagnosis NEXTGEN ([facility]) Diagnosis [facility] ([facility]) Surgeries/Procedures Procedure Description Date Indications Data Source(s) XR Foot AP + Lateral + 06/05/2020 [facility] Health Oblique-Left XR Foot AP + 02:21:00 PM EDT System Lateral + Oblique-Left - 06/05/2020 02:21:00 PM EDT XR Fluoroscopy < 1 Hr XR 06/05/2020 [facility] Health Fluoroscopy < 1 Hr 09:24:00 AM EDT System - 06/05/2020 09:24:00 AM EDT Venipuncture 06/03/2020 [facility] Heal th 10:21:59 AM EDT System - 06/03/2020 12:00:19 PM EDT OFFICE/OUTPATIENT VISIT, 05/23/2020 NEX TGEN ([facility] EST 12:00:00 AM EDT [facility] 05/23/2020 [place]) 12:00:00 AM EDT Individual Psychotherapy 03/26/2020 NEX TGEN ([facility] (30 Min) 12:00:00 AM EDT [facility] 03/26/2020 [place]) 12:00:00 AM EDT Individual Psychotherapy 03/20/2020 NEX TGEN ([facility] (30 Min) 12:00:00 AM EDT [facility] 03/20/2020 [place]) 12:00:00 AM EDT Individual Psychotherapy 03/12/2020 NEX TGEN ([facility] (30 Min) 12:00:00 AM EDT [facility] 03/12/2020 [place]) 12:00:00 AM EDT Individual Psychotherapy 03/06/2020 NEX TGEN ([facility] (30 Min) 12:00:00 AM EDT [facility] 03/06/2020 [place]) 12:00:00 AM EDT Individual Psychotherapy 02/20/2020 NEX TGEN ([facility] (30 Min) 12:00:00 AM EDT [facility] 02/20/2020 [place]) 12:00:00 AM EDT Individual Psychotherapy 02/13/2020 NEX TGEN ([facility] (30 Min) 12:00:00 AM EDT [facility] 02/13/2020 [place]) 12:00:00 AM EDT Individual Psychotherapy 02/06/2020 NEX TGEN ([facility] (30 Min) 12:00:00 AM EDT [facility] - 02/06/2020 Center) 12:00:00 AM EDT Individual Psychotherapy 01/23/2020 NEX TGEN ([facility] (30 Min) 12:00:00 AM EDT [facility] - 01/23/2020 [place]) 12:00:00 AM EDT Individual Psychotherapy 01/16/2020 NEX TGEN ([facility] (30 Min) 12:00:00 AM EDT [facility] - 01/16/2020 [place]) 12:00:00 AM EDT Individual Psychotherapy 01/09/2020 NEX TGEN ([facility] (45 Min) 12:00:00 AM EDT [facility] - 01/09/2020 [place]) 12:00:00 AM EDT Individual Psychotherapy 01/01/2020 NEX TGEN ([facility] (45 Min) 12:00:00 AM EDT [facility] 01/01/2020 [place]) 12:00:00 AM EDT OFFICE/OUTPATIENT VISIT, 12/29/2019 NEX TGEN ([facility] EST 12:00:00 AM EDT [facility] 12/29/2019 [place]) 12:00:00 AM EDT Individual Psychotherapy 12/07/2019 NEX TGEN ([facility] (45 Min) 12:00:00 AM EST [facility] - 12/07/2019 [place]) 12:00:00 AM EST Individual Psychotherapy 11/20/2019 NEX TGEN ([facility] (45 Min) 12:00:00 AM EST [facility] 11/20/2019 [place]) 12:00:00 AM EST Individual Psychotherapy 11/09/2019 NEX TGEN ([facility] (45 Min) 12:00:00 AM EST [facility] 11/09/2019 [place]) 12:00:00 AM EST Individual Psychotherapy 11/03/2019 NEX TGEN ([facility] (30 Min) 12:00:00 AM EST [facility] - 11/03/2019 [place]) 12:00:00 AM EST OFFICE/OUTPATIENT VISIT, 10/30/2019 NEX TGEN ([facility] EST 12:00:00 AM EST [facility] 10/30/2019 [place]) 12:00:00 AM EST Individual Psychotherapy 10/19/2019 NEX TGEN ([facility] (45 Min) 12:00:00 AM EST [facility] 10/19/2019 [place]) 12:00:00 AM EST Individual Psychotherapy 10/12/2019 NEX TGEN ([facility] (45 Min) 12:00:00 AM EST [facility] - 10/12/2019 Center) 12:00:00 AM EST Individual Psychotherapy 09/19/2019 NEX TGEN ([facility] (45 Min) 12:00:00 AM EST [facility] - 09/19/2019 [place]) 12:00:00 AM EST OFFICE/OUTPATIENT VISIT, 09/04/2019 NEX TGEN ([facility] EST 12:00:00 AM EST [facility] - 09/04/2019 [place]) 12:00:00 AM EST Individual Psychotherapy 09/04/2019 NEX TGEN ([facility] (45 Min) 12:00:00 AM EST [facility] - 09/04/2019 [place]) 12:00:00 AM EST Individual Psychotherapy 08/08/2019 NEX TGEN ([facility] (45 Min) 12:00:00 AM EST [facility] - 08/08/2019 [place]) 12:00:00 AM EST Individual Psychotherapy 07/21/2019 NEX TGEN ([facility] (45 Min) 12:00:00 AM EDT [facility] 07/21/2019 Center) 12:00:00 AM EDT OFFICE/OUTPATIENT VISIT, 07/07/2019 NEX TGEN ([facility] EST 12:00:00 AM EDT [facility] - 07/07/2019 [place]) 12:00:00 AM EDT Individual Psychotherapy 07/07/2019 NEX TGEN ([facility] (30 Min) 12:00:00 AM EDT [facility] 07/07/2019 [place]) 12:00:00 AM EDT Individual Psychotherapy 06/20/2019 NEX TGEN ([facility] (45 Min) 12:00:00 AM EDT [facility] - 06/20/2019 Center) 12:00:00 AM EDT OFFICE/OUTPATIENT VISIT, 06/07/2019 NEX TGEN ([facility] EST 12:00:00 AM EDT [facility] - 06/07/2019 [place]) 12:00:00 AM EDT Individual Psychotherapy 06/06/2019 NEX TGEN ([facility] (45 Min) 12:00:00 AM EDT [facility] - 06/06/2019 [place]) 12:00:00 AM EDT Individual Psychotherapy 05/23/2019 NEX TGEN ([facility] (45 Min) 12:00:00 AM EDT [facility] 05/23/2019 [place]) 12:00:00 AM EDT Individual Psychotherapy 05/08/2019 NEX TGEN ([facility] (30 Min) 12:00:00 AM EDT [facility] - 05/08/2019 [place]) 12:00:00 AM EDT OFFICE/OUTPATIENT VISIT, 03/31/2019 NEX TGEN ([facility] EST 12:00:00 AM EDT [facility] 03/31/2019 [place]) 12:00:00 AM EDT Individual Psychotherapy 03/31/2019 NEX TGEN ([facility] (45 Min) 12:00:00 AM EDT [facility] - 03/31/2019 [place]) 12:00:00 AM EDT Individual Psychotherapy 03/06/2019 NEX TGEN ([facility] (30 Min) 12:00:00 AM EDT [facility] - 03/06/2019 [place]) 12:00:00 AM EDT OFFICE/OUTPATIENT VISIT, 03/02/2019 NEX TGEN ([facility] EST 12:00:00 AM EDT [facility] 03/02/2019 [place]) 12:00:00 AM EDT Individual Psychotherapy 01/10/2019 NEX TGEN ([facility] (45 Min) 12:00:00 AM EDT [facility] - 01/10/2019 [place]) 12:00:00 AM EDT Individual Psychotherapy 12/22/2018 NEX TGEN ([facility] (45 Min) 12:00:00 AM EDT [facility] - 12/22/2018 [place]) 12:00:00 AM EDT Individual Psychotherapy 12/08/2018 NEX TGEN ([facility] (45 Min) 12:00:00 AM EST [facility] - 12/08/2018 [place]) 12:00:00 AM EST OFFICE/OUTPATIENT VISIT, 11/15/2018 NEX TGEN ([facility] EST 12:00:00 AM EST [facility] - 11/15/2018 [place]) 12:00:00 AM EST Individual Psychotherapy 11/15/2018 NEX TGEN ([facility] (45 Min) 12:00:00 AM EST [facility] 11/15/2018 [place]) 12:00:00 AM EST Individual Psychotherapy 09/01/2018 NEX TGEN ([facility] (45 Min) 12:00:00 AM EST [facility] 09/01/2018 [place]) 12:00:00 AM EST Results ID Date Data Source [id number] 06/09/2020 02:15:07 AM EDT [facility] Name Value Range Interpretation Description Data Sup porting Code Source(s) Document(s ) 91617-0 NEGATIVE Testing Normal (applies COVID-19.. [facility] [...] Range: NEGATIVE . ID Date Data Source [id number] 06/09/2020 02:15:07 AM EDT [facility] [...] Health } System ID Date Data Source [id number] 06/09/2020 02:15:07 AM EDT [facility] [...] or results) Plasma ID Date Data Source [id number] 06/09/2020 02:15:07 AM EDT [facility] Name Value Range Interpretation Description Data Sup porting Code Source(s) Document(s ) aPTT in Blood 23.5 Normal (applies Activated [facility] by Coagulation {Seconds to non-numeric Partial Health assay } results) Thromboplastin System Time ID Date Data Source [id number] 06/09/2020 02:15:07 AM EDT [facility] [...] Heart = 3.0-4.5 ID Date Data Source [id number] 06/09/2020 02:15:07 AM EDT [facility] Name Value Range Interpretation Description Data Sup porting Code Source(s) Document(s ) TissueExam Results for case # Normal (applies Tissue Exam [facility] [id number] to non-[facility] SURGICAL PATHOLOGY results) System REPORTCLINICAL INFORMATION: [...] diagnosis only.MV/stPage 1 of 1Testing performed at [facility], [address] [place] [address]. ID Date Data Source [id number] 06/05/2020 02:21:00 PM EDT [facility] HISTORY : s/p left foot xray;COMPARISON: NoneFINDINGS:XR [...] MDEnvision Physician ServicesSHCR DR LUC AG [facility] [phone] Signed:Luc Ag, [id number] a t 15:28 EDTTel ,Service support , [phone] Name Value Range Interpretation Code Description Data Ruthie rce(s) Supporting Document(s ) ID Date Data Source [id number] 06/05/2020 09:24:00 AM EDT [facility] Fluoroscopy was performed under the dire ct supervision of thephysician performing the procedure. The total time offluoroscopi c exposure for the patient during the examination was39 seconds.A total number of 9images of the foot region were obtained todocument fluoroscopy.IMPRESSION:Fluoro scopyprovided.Electronically Signed:Jason Doug, at 15:09 EDTTel ,Service support , [phone] Name Value Range Interpretation Code Description Data Ruthie rce(s) Supporting Document(s ) ID Date Data Source [id number] 06/03/2020 10:15:00 AM EDT [facility] Name Value Range Interpretation Code Description Data Ruthie rce(s) Supporting Document(s ) COVID-19.. [facility] This lab was ordered by [facility] and reported by [facility]. ID Date Data Source [id number] 02/02/2020 12:00:00 AM EDT [facility] Name Value Range Interpretation Code Description Data Ruthie rce(s) Supporting Document(s ) 2019-nCoV [facility] RNA XXX MANUEL+probe- Imp This lab was ordered by [facility] and reported by [facility]. Procedure Social History Code Duration Value Status Description Data Source(s ) Smoking Unknown if ever completed Unknown if ever Filomena Reynoso smoked smoked [facility] Vital Signs ID Date Data [...] 131 mm[Hg] [facility] pressure non-numeric results) [facility] Oxygen saturation 100 % 0 - 999 Normal (applies to 100 % [facility] Arter[facility] blood non-numeric results) Health System by Pulse oximetry Respiratory rate 17 0 - 999 Normal (applies to 17 [facility] non-numeric results) [facility] Heart rate 82 0 - 999 Normal (applies to 82 [facility] non-numeric results) [facility] Body surface area 1.6 m2 1.6 m2 [facility] Derived from [facility] Sy[facility] m formula Body mass index 29.2 kg/m2 29.2 kg/m2 [facility] (BMI) [Ratio] [facility] Syst em Body weight 68.03 kg 68.03 kg [facility] Body height 152.4 cm 152.4 cm [facility] Patient Treatment Plan of Care Planned Activity Planned Date Details Description Data Source (s) 12 HR Bupropion 05/23/2020 12:00:00 NEXTG EN ([facility] Hydrochloride 100 MG AM [facility] Extended Release Oral Center ) Tablet [Wellbutrin] 12 HR Bupropion 04/03/2020 12:00:00 NEXTG EN ([facility] Hydrochloride 100 MG AM [facility] Extended Release Oral Center ) Tablet [Wellbutrin] 12 HR Bupropion 12/29/2019 12:00:00 NEXTG EN ([facility] Hydrochloride 100 MG AM [facility] Extended Release Oral Center ) Tablet [Wellbutrin] Trazodone Hydrochloride 10/30/2019 12:00:00 NEXTGEN ([facility] 50 MG Oral Tablet AM [facility]) 12 HR Bupropion 10/30/2019 12:00:00 NEXTG EN ([facility] Hydrochloride 100 MG AM [facility] Extended Release Oral Center ) Tablet [Wellbutrin] 12 HR Bupropion 09/04/2019 12:00:00 NEXTG EN ([facility] Hydrochloride 100 MG AM [facility] Extended Release Oral Center ) Tablet [Wellbutrin] 12 HR Bupropion 07/07/2019 12:00:00 NEXTG EN ([facility] Hydrochloride 100 MG AM [facility] Extended Release Oral Center ) Tablet [Wellbutrin] 12 HR Bupropion 06/07/2019 12:00:00 NEXTG EN ([facility] Hydrochloride 100 MG AM [facility] Extended Release Oral Center ) Tablet [Wellbutrin] 12 HR Bupropion 06/07/2019 12:00:00 NEXTG EN ([facility] Hydrochloride 100 MG AM [facility] Extended Release Oral Center ) Tablet [Wellbutrin] 12 HR Bupropion 06/01/2019 12:00:00 NEXTG EN ([facility] Hydrochloride 100 MG AM [facility] Extended Release Oral Center ) Tablet [Wellbutrin] 12 HR Bupropion 03/31/2019 12:00:00 NEXTG EN ([facility] Hydrochloride 100 MG AM [facility] Extended Release Oral Center ) Tablet [Wellbutrin] 12 HR Bupropion 03/02/2019 12:00:00 NEXTG EN ([facility] Hydrochloride 100 MG AM [facility] Extended Release Oral Center ) Tablet [Wellbutrin] buspirone hydrochloride 5 12/13/2018 12:00:00 NEXTGEN ([facility] MG Oral Tablet AM [facility]) 12 HR Bupropion 12/13/2018 12:00:00 NEXTG EN ([facility] Hydrochloride 100 MG AM [facility] Extended Release Oral Center ) Tablet [Wellbutrin] buspirone hydrochloride 5 11/15/2018 12:00:00 NEXTGEN ([facility] MG Oral Tablet AM [facility]) 12 HR Bupropion 11/15/2018 12:00:00 NEXTG EN ([facility] Hydrochloride 100 MG AM [facility] Extended Release Oral Center ) Tablet [Wellbutrin] Zinc Sulfate 140 MG Oral [facility] Health Tablet System [facility]one [facility] Cyclosporine 0.5 MG/ML [facility] Ophthalmic Suspension System [Restasis] cetirizine hydrochloride [facility] 10 MG Oral Tablet System Bupropion Hydrochloride [facility] 100 MG Oral Tablet System Trelegy Ellipta [facility] inhalation powder System [facility]othyroxine [facility]odium [facility] 0.075 MG Oral Tablet System Budesonide 0.125 MG/ML [facility] Health Inhalant Solution System Albuterol 0.83 MG/ML [facility] Inhal[facility] Solution System Ventolin HFA 90 mcg/inh [facility] inhalation aerosol System Famotidine 40 MG Oral [facility] Tablet System atorvastatin 10 MG Oral [facility] Tablet System montelukast 10 MG Oral [facility] Health Tablet System
[2020-06-24 05:06] LABS: EPI CELLS 8 /uL (0-25.1); HYALINE CASTS 1 /uL (0-3.1); PH,URINE 5.5 (5.0-8.0); URINE APPEARANCE CLEAR; URINE BACTERIA 214 /uL (0-1359); URINE BILIRUBIN NEGATIVE (NEGATIVE); URINE COLOR YELLOW; URINE GLUCOSE (UA) NEGATIVE (NEGATIVE); URINE KETONE NEGATIVE (NEGATIVE); URINE LEUK ESTERASE NEGATIVE (NEGATIVE); URINE NITRITE NEGATIVE (NEGATIVE); URINE PROTEIN NEGATIVE (NEGATIVE); URINE RBC 9 /uL (0-23.9); URINE UROBILINOGEN 0.2 mg/dL (0.2-1.0); URINE WBC 8 /uL (0-25.8)
[2020-06-24] MEDS ORDERED: morphine CARPU-JECT 2 MG/1 ML DISP.SYRIN IVPUSH ONE (06:24)
[2020-06-24] MEDS ORDERED: MORPHINE SULFATE 2 MG/ML VIAL ONE (06:25)
[2020-06-24] MEDS ORDERED: ALBUTEROL SO4 HFA INHALER IH PRN (08:38)
--- NOTE | 2020-06-24 08:53 | HP ---
Admitting History and Physical - Primary Care Physician PCP: La Burrell S - Admission Chief Complaint: L foot pain rash and fever History of Present Illness: 65F PMH HTN, HLD, COPD, Hypothyroid c/o 2 days fever and fatigue. Home oral temps from 99 to low 100s. Had left foot surgery due to toe dislocation on 06/05/[address] still in place. Pt denies cough, wheezes, sore throat, chest pain, sob, n/v/d, dysuria, headaches. Allergies reviewed w/ patient. Also said she lost balance b/o foot paoin at home 2-3 days ago and fell on her l side, has some L shoulder pain with moving; no LOC no head trauma. 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 Pneumothorax) Gastrointestinal: Yes: GERD ...LMP: 06/04/14 ...: No Heme/Onc: Yes: Other (MGUS) Psych: Yes: Anxiety Musculoskeletal: Yes: Chronic low back pain, Other (bilateral rotator cuff tears, foot problems she relates to long-term steroid use) Endocrine: Yes: Hypothyroidism - Smoking History Smoking history: Current every day smoker Have you smoked in the past 12 months: No Aproximately how many cigarettes per day: 10 If you are a former smoker, when did you quit?: 02/17 - Alcohol/Substance Use Hx Alcohol Use: No History of Substance Use: reports: None - Social History Usual Living Arrangement: Yes: Alone ADL: Independent History of Recent Travel: No Home Medications - Allergies Allergies/Adverse Reactions: Allergies Allergy/AdvReac Type Severity Reaction Status Date / Time Quinolones Allergy Severe Difficulty Verified 05/08/20 16:39 Breathing Penicillins Allergy Intermediate Rash Verified 05/08/20 16:39 fluoroquinolones Allergy Severe Difficulty Uncoded 05/08/20 16:39 Breathing - Home Medications Home Medications: Ambulatory Orders Albuterol 2.5/Ipratropium 0.5 [Duoneb -] 1 neb IH QID 06/24/20 Albuterol Sulfate Inhaler - [Ventolin Hfa Inhaler -] 2 inh PO Q6H 06/24/20 Atorvastatin Ca [Lipitor] 20 mg PO HS 06/24/20 Budesonide [Pulmicort 0.25 mg Nebulizer -] 1 neb NEB ONCE 06/24/20 Bupropion HCl 100 mg PO DAILY 06/24/20 Cetirizine HCl 10 mg PO DAILY 06/24/20 Famotidine [Pepcid -] 40 mg PO DAILY 06/24/20 Levothyroxine [Synthroid -] 88 mcg PO DAILY 06/24/20 Losartan Potassium 25 mg PO DAILY 06/24/20 Montelukast Na [Singulair -] 10 mg PO HS 06/24/20 predniSONE [Deltasone -] 5 mg PO DAILY 06/24/20 Family Medical History Family History: Unremarkable Review of Systems - Review of Systems Constitutional: reports: Chills, Fever. denies: Lethargy Eyes: denies: Blind Spots, Blurred Vision, Double Vision HENT: denies: Difficult Swallowing, Ear Pain, Epistaxis Neck: denies: Stiffness, Tenderness Cardiovascular: denies: Chest Pain, Edema, Palpitations, Shortness of Breath Respiratory: denies: Cough, SOB, SOB on Exertion Gastrointestinal: denies: Abdominal Pain, Constipation, Diarrhea, Vomiting Genitourinary: denies: Burning, Dysuria, Flank Pain Musculoskeletal: reports: Extremity Pain (L foot, L shoulder). denies: Back Pain Integumentary: reports: Rash (L foot). denies: Blister Neurological: denies: Change in Speech, Confusion Hematology/Lymphatic: denies: Easily Bruised, Excessive Bleeding Psychiatric: denies: Altered Sleep Pattern, Anxiety, Depression, Suicidal Physical Examination Vital Signs: Vital Signs Temperature 101 F H 06/24/20 02:08 Pulse Rate 92 H 06/24/20 06:28 Respiratory Rate 06/24/20 06:28 Blood Pressure 127/67 06/24/20 06:28 O2 Sat by Pulse Oximetry (%) 96 06/24/20 06:28 Constitutional: Yes: No Distress, Calm Eyes: Yes: Conjunctiva Clear HENT: Yes: Atraumatic Neck: Yes: Supple Cardiovascular: Yes: Regular Rate and Rhythm Respiratory: Yes: CTA Bilaterally Gastrointestinal: Yes: Soft. No: Tenderness Renal/: No: Hematuria Musculoskeletal: No: Joint Stiffness Extremities: Yes: Other (L foot dressed, mild foot and periankle edema). No: Cold, Cool, Cyanosis Edema: Yes (LLE trace edema ) Integumentary: Yes: Rash (L foot) Neurological: Yes: Alert, Oriented ...Motor Strength: WNL Psychiatric: Yes: Alert, Oriented. No: Agitated, Suicidal Ideation Labs: CBC, BMP 06/24/20 02:50 06/24/20 02:50 Imaging - Results Chest X-ray: Report Reviewed X-ray: Report Reviewed Other: Report Reviewed Assessment/Plan 65F PMH HTN, HLD, COPD, Hypothyroid c/o 2 days fever and fatigue. s/p left foot surgery due to toe dislocation on 06/05/[address]. s/p fall at home 2-3 days ago L shoulder pain check foot, shoulder xrays LLE venous US r.o DVT IV ATB per ID; cultures sent DVT pfx pain meds prn podiatry eval ortho eval falls PFX dw pt do not get OOB alone d/w pt and staff
[2020-06-24] MEDS ORDERED: BUDESONIDE 0.25 MG/2ML INH SUSP VIAL NEB SCH (10:00)
[2020-06-24] MEDS ORDERED: buPROPion HCL 100 MG TABLET PO SCH (10:00)
[2020-06-24] MEDS ORDERED: TRELEGY ELLIPTA IH SCH (10:00)
--- NOTE | 2020-06-24 10:13 | EKG ---
Test Reason : Blood Pressure : / mmHG Vent. Rate : 099 BPM Atrial Rate : 099 BPM P-R Int : 162 ms QRS Dur : 078 ms QT Int : 336 ms P-R-T Axes : 047 030 058 degrees QTc Int : 431 ms NORMAL SINUS RHYTHM NORMAL ECG WHEN COMPARED WITH ECG OF 04-DEC-2019 14:06, NO SIGNIFICANT CHANGE WAS FOUND Confirmed by SUDHA TAPIA MD ([id number]) on 06/24/2020 10:12:53 AM Referred By: Confirmed By:SUDHA TAPIA MD
--- NOTE | 2020-06-24 10:15 | PN ---
Progress Note (short form) - Note Progress Note: ID CONSULT DICTATED CELLULITIS L 2ND TOE ? INFECTED HARDWEAR FEVER/ LEUKOCYTOSIS R/O SEPSIS PCN/FQ ALLERGIES AWAIT C/S EMPIRIC VANCOMYCIN/ AZTREONAM PODIATRY FOLLOW UP
--- NOTE | 2020-06-24 11:03 | CONS ---
INFECTIOUS DISEASE CONSULTATION DATE OF CONSULTATION: DATE OF DICTATION: 06/24/2020 HISTORY: The patient is a 65-year-old female who is evaluated for foot infection. The patient reports undergoing a podiatric procedure on June 05, 2020. She was unable to offer any additional details. She did have orthopedic hardware inserted into her left 2nd toe. She reports receiving a course of an oral cephalosporin. She reports that she has developed worsening fever and fatigue at home and had noticed some erythema involving the left 2nd toe. She presented to the emergency room where she was noted to have fever of 101 and a white blood cell count of 17.6. An x-ray of the foot was performed, the results of which are pending. She is empirically treated with meropenem. Patient denies any traumatic injury. She denies any purulent drainage from the surgical sites. PAST MEDICAL HISTORY: Positive for hypertension, hyperlipidemia, congestive heart failure, MGUS, COPD, CPAP, hypothyroidism. ALLERGIES: To FLUOROQUINOLONES and PENICILLIN. Patient reports being told that she was allergic to PENICILLIN in childhood. According to the notes, she had a rash. According to the notes also she has a history of QUINOLONE ALLERGY with difficulty breathing. MEDICATIONS: Include meropenem, Claritin, albuterol, Lipitor, losartan, Tylenol, Wellbutrin, Pepcid, Synthroid, prednisone. SOCIAL HISTORY: She resides in the community. She is a current every day smoker. SYSTEMS REVIEW: Neurologic: No loss of consciousness, seizure activity, focal weakness. Cardiac: Negative chest pain or palpitations. Respiratory: Positive for COPD on CPAP. Gastrointestinal: Negative vomiting or diarrhea. Genitourinary: Negative for urinary tract infection. LABORATORY DATA: White count 17.6, neutrophils 74, lymphocytes 15, monocytes 8, hematocrit 31.4, platelets 352. Creatinine 0.8. Urine analysis 8 white cells. Blood and urine cultures are pending. PHYSICAL EXAMINATION: General: She is awake and alert. She is in moderate distress secondary to foot pain. Vital Signs: Temperature 101, blood pressure 127/67, pulse 92 regular, respirations 20 per minute. HEENT: Sclerae are anicteric. Heart: Sounds S1, S2. Lungs: Clear. Abdomen: Soft and nontender. Extremities: There is a piece of orthopedic hardware present extruding from the left 2nd toe. There is slight erythema and swelling of the left 2nd toe as well as the left great toe. There is a surgical incision present on the medial aspect of the great toe. No purulent drainage is noted. No crepitus or fluctuance. IMPRESSION: 1. Cellulitis of the left 2nd toe. 2. Rule out infected hardware. 3. Fever, leukocytosis, rule out sepsis. 4. PENICILLIN and FLUOROQUINOLONE ALLERGIES. Await cultures. Empiric antibiotic coverage with vancomycin and aztreonam. Patient has tolerated aztreonam in the past. Podiatry followup. Will follow. Case discussed with significant other at the bedside. Thank you for the kind referral. NANCY ECSAR M.D. OMAR/[id number]
[2020-06-24] MEDS ORDERED: FAMOTIDINE 20 MG TABLET ONE (11:27)
[2020-06-24] MEDS ORDERED: LORATADINE 10 MG TABLET ONE (11:28)
[2020-06-24] MEDS ORDERED: HEPARIN NA (PORCINE) 5,000 UNITS/ML 1ML VIAL ONE (11:28)
[2020-06-24] MEDS ORDERED: VANCOMYCIN 1 GRAM (PRE-DOCKED) 1,000 MG/250 ML BAG IVPB ONE ×2 (11:33→22:03)
[2020-06-24] MEDS ORDERED: AZTREONAM 1 GM VIAL (RESTRICTED TO ID) ONE ×2 (11:33→17:36)
[2020-06-24] MEDS: LORATADINE 10 MG TABLET PO SCH (12:03)
[2020-06-24] MEDS: HEPARIN NA (PORCINE) 5,000 UNITS/ML 1ML VIAL SQ SCH (12:03)
[2020-06-24] MEDS: LOSARTAN POTASSIUM 25 MG TABLET PO SCH (12:03)
[2020-06-24] MEDS: predniSONE 5 MG TABLET (UD) PO SCH (12:03)
[2020-06-24] MEDS: AZTREONAM 1 GM in DEXTROSE 5%-WATER - 50 ML IVPB SCH ×2 (12:04→17:56)
[2020-06-24] MEDS: FAMOTIDINE 20 MG TABLET PO SCH (12:04)
[2020-06-24] MEDS: VANCOMYCIN 1 GRAM (PRE-DOCKED) 1,000 MG/250 ML BAG IVPB SCH ×2 (12:35→23:26)
[2020-06-24] MEDS: LEVOTHYROXINE NA 88 MCG TABLET (FP) PO SCH (13:39)
[2020-06-24] MEDS ORDERED: ACETAMINOPHEN 325 MG TABLET (FP) ONE (14:31)
[2020-06-24] MEDS: ACETAMINOPHEN 325 MG TABLET (FP) PO PRN (14:43)
[2020-06-24] MEDS ORDERED: ATORVASTATIN CA 20 MG TABLET (FP) ONE (22:03)
[2020-06-24] MEDS ORDERED: MONTELUKAST NA 10 MG TABLET ONE (22:03)
[2020-06-24] MEDS: MONTELUKAST NA 10 MG TABLET PO SCH (23:26)
[2020-06-24] MEDS: ATORVASTATIN CA 20 MG TABLET (FP) PO SCH (23:26)
[2020-06-25] MEDS ORDERED: HEPARIN NA (PORCINE) 5,000 UNITS/ML 1ML VIAL ONE (00:01)
[2020-06-25] MEDS: HEPARIN NA (PORCINE) 5,000 UNITS/ML 1ML VIAL SQ SCH ×3 (00:19→21:37)
[2020-06-25] MEDS ORDERED: DEXTROSE 5%-WATER - 50 ML IVPB ONE ×2 (02:17→08:52)
[2020-06-25] MEDS ORDERED: AZTREONAM 1 GM VIAL (RESTRICTED TO ID) ONE ×2 (02:17→08:52)
[2020-06-25] MEDS: AZTREONAM 1 GM in DEXTROSE 5%-WATER - 50 ML IVPB SCH ×2 (02:26→09:12)
[2020-06-25] MEDS: ACETAMINOPHEN 325 MG TABLET (FP) PO PRN (05:14)
[2020-06-25] MEDS: LEVOTHYROXINE NA 88 MCG TABLET (FP) PO SCH (07:00)
[2020-06-25 08:04] LABS: BASO % 0.5 % (0-2.0); EOS % 1.1 % (0-4.5); HEMOGLOBIN 9.5 GM/dL (10.7-15.3); LYMPH % 13.7 % (8-40); MCH 24.6 pg (25.7-33.7); MCHC 31.8 g/dl (32.0-36.0); MEAN CELL VOLUME 77.4 fl (80-96); MEAN PLT VOLUME 7.5 fl (7.5-11.1); MONO % 9.6 % (3.8-10.2); NEUT % 75.1 % (42.8-82.8); PLATELET COUNT 392 K/MM3 (134-434); RBC 3.87 M/mm3 (3.60-5.2); RDW 17.6 % (11.6-15.6); WHITE BLOOD COUNT 13.4 K/mm3 (4.0-10.0)
[2020-06-25] MEDS ORDERED: PT OWN MED DRAWER 7, Y5N ONE ×2 (08:04→11:08)
[2020-06-25 08:28] LABS: ALBUMIN 2.7 g/dl (3.4-5.0); BILIRUBIN,TOTAL 0.6 mg/dL (0.2-1); BLOOD UREA NITROGEN 10.5 mg/dL (7-18); CALCIUM 8.4 mg/dL (8.5-10.1); CREATININE 0.6 mg/dL (0.55-1.3); TOT PROT 7.1 g/dl (6.4-8.2)
[2020-06-25] MEDS: LOSARTAN POTASSIUM 25 MG TABLET PO SCH (09:12)
[2020-06-25] MEDS: LORATADINE 10 MG TABLET PO SCH (09:12)
[2020-06-25] MEDS: predniSONE 5 MG TABLET (UD) PO SCH (09:12)
[2020-06-25] MEDS: FAMOTIDINE 20 MG TABLET PO SCH (09:12)
[2020-06-25] MEDS ORDERED: BUDESONIDE/FORMETEROL FUMARATE 80/4.5 mcg INHALER IH SCH (10:00)
[2020-06-25] MEDS ORDERED: TIOTROPIUM BROMIDE 2.5 MCG (SPIRIVA) RESPIMAT INHALER IH SCH (10:00)
--- NOTE | 2020-06-25 10:05 | PN ---
Progress Note (short form) - Note Progress Note: Asked to evaluate pt for a left 2nd toe infection s/p Podiatric surgery with hardware 06-05-20. She states that since starting IV Vancomycin and Aztreonam she feels much better, her symptoms are much improved, she has less pain, less erythema. AVSS PE This am her left 2nd toe is not swollen, no erythema, not hot, not tender, no drainage, incision looks fine. Toe is grossly NVI. Imp L 2nd toe s/p surgery, previous infection, now resolved or resolving, doing much better. Rec No additional surgery needed at this time - however final surgical decision as per Podiatry. Con't IV antibiotics as per ID and PMD, they will decide when to switch to PO abx and DC home. F/U with Ortho unnecessary at this time.
--- NOTE | 2020-06-25 10:09 | CONSULT ---
Consult Consult Specialty:: Podiatry Reason for Consultation:: Cellulitis left foot - History of Present Illness History of Present Illness: POST OP BUNIONECTOMY AND FUSION AND MPJ FUSION 2ND LEFT 06/05/2020 according to patient at [facility] [place]. Does not know Surgeons name but has cell number. Hiowever states pain has improved since admission. 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 Pneumothorax) Gastrointestinal: Yes: GERD ...LMP: 06/04/14 ...: No Psych: Yes: Anxiety Musculoskeletal: Yes: Chronic low back pain, Other (bilateral rotator cuff tears, foot problems she relates to long-term steroid use) Endocrine: Yes: Hypothyroidism - Alcohol/Substance Use Hx Alcohol Use: No History of Substance Use: reports: None - Smoking History Smoking history: Current every day smoker Have you smoked in the past 12 months: No Aproximately how many cigarettes per day: 10 If you are a former smoker, when did you quit?: 02/17 - Social History Usual Living Arrangement: Alone ADL: Independent History of Recent Travel: No Home Medications - Allergies Allergies/Adverse Reactions: Allergies Allergy/AdvReac Type Severity Reaction Status Date / Time Quinolones Allergy Severe Difficulty Verified 05/08/20 16:39 Breathing Penicillins Allergy Intermediate Rash Verified 05/08/20 16:39 fluoroquinolones Allergy Severe Difficulty Uncoded 05/08/20 16:39 Breathing - Home Medications Home Medications: Ambulatory Orders Albuterol 2.5/Ipratropium 0.5 [Duoneb -] 1 neb IH QID 06/24/20 Albuterol Sulfate Inhaler - [Ventolin Hfa Inhaler -] 2 inh PO Q6H 06/24/20 Atorvastatin Ca [Lipitor] 20 mg PO HS 06/24/20 Budesonide [Pulmicort 0.25 mg Nebulizer -] 1 neb NEB ONCE 06/24/20 Bupropion HCl 100 mg PO DAILY 06/24/20 Cetirizine HCl 10 mg PO DAILY 06/24/20 Famotidine [Pepcid -] 40 mg PO DAILY 06/24/20 Levothyroxine [Synthroid -] 88 mcg PO DAILY 06/24/20 Losartan Potassium 25 mg PO DAILY 09/21/20 Montelukast Na [Singulair -] 10 mg PO HS 06/24/20 predniSONE [Deltasone -] 5 mg PO DAILY 06/24/20 Family Medical History Family History: Unremarkable Physical Exam Vital Signs: Vital Signs Temperature 101.3 F H 06/25/20 05:22 Pulse Rate 107 H 06/25/20 05:22 Respiratory Rate 18 06/25/20 05:22 Blood Pressure 140/84 06/25/20 05:22 O2 Sat by Pulse Oximetry (%) 94 L 06/25/20 05:22 Wound/Incision: Yes: Other (cellulitis left foot with exposed k-wire and internal plate 2nd mpj, staple and screw hallux valgus +erythema to mpj area, - drainage, xray reviwed good alignment, vsgi, ns decreased) Labs: CBC, BMP 06/25/20 07:37 06/25/20 06:00 Imaging - Results X-ray: Image Reviewed Assessment/Plan cellulitis left forefoot post op buninetomy/fusion left foot 06/05/2020 IVABX as per ID. CBC with diff in am if improving will not disturb internal hardware. Will most likely pull pin. Waiting to speak to her surgeon about the procedure and timing. Betadine dressing change daily. Will follow. Bedrest. No Bathroom privelages.
--- NOTE | 2020-06-25 10:14 | PN ---
Progress Note, Physician Chief Complaint: in bed feels a littel better less toe pain but still fever on ATB L shoulder pain with moving it but better too - Current Medication List Current Medications: Active Medications Acetaminophen (Tylenol -) 650 mg PO Q6H PRN PRN Reason: FEVER Last Admin: 06/25/20 05:14 Dose: 650 mg Documented by: Albuterol Sulfate (Ventolin Hfa Inhaler -) 2 puff IH Q6H PRN PRN Reason: WHEEZING Albuterol/Ipratropium (Duoneb -) 1 amp NEB QID PRN PRN Reason: WHEEZING Atorvastatin Calcium (Lipitor -) 20 mg PO HS [facility] Last Admin: 06/24/20 23:26 Dose: 20 mg Documented by: Budesonide (Pulmicort 0.25 Mg Nebulizer -) 1 amp NEB DAILY [facility] Budesonide/Formoterol Fumarate (Symbicort 80/4.5mcg -) 2 puff IH BID [facility] Bupropion HCl (Wellbutrin -) 100 mg PO DAILY [facility] Famotidine (Pepcid -) 40 mg PO DAILY [facility] Last Admin: 06/25/20 09:12 Dose: 40 mg Documented by: Heparin Sodium (Porcine) (Heparin -) 5,000 unit SQ BID [facility] Last Admin: 06/25/20 09:13 Dose: 5,000 unit Documented by: Vancomycin HCl (Vancomycin (Pre-Docked)) 1,000 mg in 250 mls @ 166.667 mls/hr IVPB Q12H [facility]; Protocol Last Admin: 06/24/20 23:26 Dose: 166.667 mls/hr Documented by: Aztreonam 1 gm/ Dextrose 50 mls @ 100 mls/hr IVPB Q8H-IV [facility]; Protocol Stop: 06/25/20 10:59 Last Admin: 06/25/20 09:12 Dose: 100 mls/hr Documented by: Levothyroxine Sodium (Synthroid -) 88 mcg PO DAILY@0700 [facility] Last Admin: 06/25/20 07:00 Dose: Not Given Documented by: Loratadine (Claritin -) 10 mg PO DAILY [facility] Last Admin: 06/25/20 09:12 Dose: 10 mg Documented by: Losartan Potassium (Cozaar -) 25 mg PO DAILY [facility] Last Admin: 06/25/20 09:12 Dose: 25 mg Documented by: Montelukast Sodium (Singulair -) [address] [facility] Last Admin: 06/24/20 23:26 Dose: 10 mg Documented by: Prednisone (Deltasone -) 5 mg PO DAILY [facility] Last Admin: 06/25/20 09:12 Dose: 5 mg Documented by: Tiotropium Marquand (Spiriva Respimat) 2 puff IH DAILY [facility] - Objective Vital Signs: Vital Signs Temperature 101.3 F H 06/25/20 05:22 Pulse Rate 107 H 06/25/20 05:22 Respiratory Rate 18 06/25/20 05:22 Blood Pressure 140/84 06/25/20 05:22 O2 Sat by Pulse Oximetry (%) 94 L 06/25/20 05:22 Constitutional: Yes: No Distress, Calm Eyes: Yes: Conjunctiva Clear HENT: Yes: Atraumatic Neck: Yes: Supple Cardiovascular: Yes: Regular Rate and Rhythm Respiratory: Yes: CTA Bilaterally Gastrointestinal: Yes: Soft. No: Tenderness Genitourinary: No: CVA Tenderness - Left, CVA Tenderness - Right, Hematuria Musculoskeletal: Yes: Other (L foot dressed no edema) Extremities: No: Cold, Cool, Cyanosis Edema: No Integumentary: No: Venous Stasis Changes Neurological: Yes: Alert, Oriented ...Motor Strength: WNL Psychiatric: Yes: Alert, Oriented. No: Agitated, Suicidal Ideation Labs: CBC, BMP 06/25/20 07:37 06/25/20 06:00 INR, PTT INR 1.16 (0.83-1.09) H 06/24/20 02:50 - ....Imaging X-ray: Report Reviewed Ultrasound: Report Reviewed Other: Report Reviewed Assessment/Plan 65F PMH HTN, HLD, COPD, Hypothyroid c/o 2 days fever and fatigue. s/p left foot surgery due to toe dislocation on 06/05/[address] with [address] still in place. s/p fall at home 2-3 days ago L shoulder pain check foot, shoulder xrays LLE venous US no DVT IV ATB per ID; cultures sent DVT pfx pain meds prn podiatry eval ortho eval falls PFX dw pt do not get OOB alone d/w pt and staff
--- NOTE | 2020-06-25 10:29 | PN ---
Progress Note (short form) - Note Progress Note: In addition I saw her for her left shoulder this am. She has had a prison problem with her left shoulder. She is L hand dominant. She tore her L RTC years ago, had surgery, did well, then fell over 1 year ago retearing her L RTC. ROM, strength, and function have been compromised since then. She went to [facility], they recommended surgery, a left Total shoulder replacement, which she wants to avoid at this time. She fell again 3 days ago, reinjuring her L shoulder, but she says there is a little more pain, but the same ROM, back to her recent baseline. PE L UE is NVI L shoulder looks chronically swollen, no signs of trauma, no bruising or lacerations. No signs of infection. Decent ROM L shoulder, about 50% of nl, pt states this is her recent baseline, no deficits of ROM or strength. Imp 3 days s/p fall, [id number] L shoulder dysfunction, back to her pre fall baseline of a chronically torn RTC. Rec NTD, except P.T. if the pt wants to do that. No urgent surgical intervention needed. Sling PRN. F/u as out patient PRN
[2020-06-25] MEDS: VANCOMYCIN 1 GRAM (PRE-DOCKED) 1,000 MG/250 ML BAG IVPB SCH ×2 (10:49→22:15)
[2020-06-25] MEDS: BUDESONIDE 0.25 MG/2ML INH SUSP VIAL NEB SCH (20:15)
[2020-06-25] MEDS: ALBUTEROL SO4 2.5/IPRATROPIUM 0.5 INH SOL 3 ML VIAL.NEB. NEB PRN (20:25)
[2020-06-25] MEDS: MONTELUKAST NA 10 MG TABLET PO SCH (21:37)
[2020-06-25] MEDS: ATORVASTATIN CA 20 MG TABLET (FP) PO SCH (21:37)
--- NOTE | 2020-06-25 21:47 | PN ---
Progress Note, Physician Chief Complaint: NO C/O FOOT PAIN NO FEVER/ CHILLS WOUND C/S GBS LOW GRADE FEVER/LEUKOCYTOSIS - Current Medication List Current Medications: Active Medications Acetaminophen (Tylenol -) 650 mg PO Q6H PRN PRN Reason: FEVER Last Admin: 06/25/20 05:14 Dose: 650 mg Documented by: Albuterol Sulfate (Ventolin Hfa Inhaler -) 2 puff IH Q6H PRN PRN Reason: WHEEZING Albuterol/Ipratropium (Duoneb -) 1 amp NEB QID PRN PRN Reason: WHEEZING Last Admin: 06/25/20 20:25 Dose: 1 amp Documented by: Atorvastatin Calcium (Lipitor -) 20 mg PO HS [facility] Last Admin: 06/25/20 21:37 Dose: 20 mg Documented by: Budesonide (Pulmicort 0.25 Mg Nebulizer -) 1 amp NEB RBID [facility] Last Admin: 06/25/20 20:15 Dose: 1 amp Documented by: Bupropion HCl (Wellbutrin -) 100 mg PO DAILY [facility] Famotidine (Pepcid -) 40 mg PO DAILY [facility] Last Admin: 06/25/20 09:12 Dose: 40 mg Documented by: Heparin Sodium (Porcine) (Heparin -) 5,000 unit SQ BID [facility] Last Admin: 06/25/20 21:37 Dose: 5,000 unit Documented by: Vancomycin HCl (Vancomycin (Pre-Docked)) 1,000 mg in 250 mls @ 166.667 mls/hr IVPB Q12H [facility]; Protocol Last Admin: 06/25/20 10:49 Dose: 166.667 mls/hr Documented by: Levothyroxine Sodium (Synthroid -) 88 mcg PO DAILY@0700 [facility] Last Admin: 06/25/20 07:00 Dose: Not Given Documented by: Loratadine (Claritin -) 10 mg PO DAILY [facility] Last Admin: 06/25/20 09:12 Dose: 10 mg Documented by: Losartan Potassium (Cozaar -) 25 mg PO DAILY [facility] Last Admin: 06/25/20 09:12 Dose: 25 mg Documented by: Montelukast Sodium (Singulair -) 10 mg PO HS [facility] Last Admin: 06/25/20 21:37 Dose: 10 mg Documented by: Trelegy Ellipta 100/ (62.5/25 Mcg) 1 each IH DAILY [facility] Prednisone (Deltasone -) 5 mg PO DAILY [facility] Last Admin: 06/25/20 09:12 Dose: 5 mg Documented by: - Objective Vital Signs: Vital Signs Temperature 98.5 F 06/25/20 19:26 Pulse Rate 93 H 06/25/20 19:26 Respiratory Rate 18 06/25/20 14:48 Blood Pressure 117/87 06/25/20 19:26 O2 Sat by Pulse Oximetry (%) 93 L 06/25/20 19:26 Constitutional: Yes: No Distress Eyes: Yes: Conjunctiva Clear Cardiovascular: Yes: Regular Rate and Rhythm, S1, S2 Respiratory: Yes: CTA Bilaterally Gastrointestinal: Yes: Normal Bowel Sounds, Soft Extremities: Yes: Other (+ ERYTHEMA 2ND, GREAT TOE + EXPOSED HARDWARE) Labs: CBC, BMP 06/25/20 07:37 06/25/20 06:00 INR, PTT INR 1.16 (0.83-1.09) H 06/24/20 02:50 Assessment/Plan CELLULITIS, 2ND/ GREAT TOE + EXPOSED HARDWARE FEVER/ LEUKOCYTOSIS PCN/FQ ALLERGIES AWAIT C/S CONTINUE VANCOMYCIN/ AZTREONAM
[2020-06-26] MEDS: ACETAMINOPHEN 325 MG TABLET (FP) PO PRN (01:16)
[2020-06-26] MEDS ORDERED: PT OWN MED DRAWER 7, Y5N ONE (06:12)
[2020-06-26] MEDS: LEVOTHYROXINE NA 88 MCG TABLET (FP) PO SCH (06:13)
--- NOTE | 2020-06-26 06:13 | PN ---
Progress Note, Physician Chief Complaint: in bed feels better less pain no fever today - consults appreciated and d/w ot; L foot with exposed pin on second toe - possible removal of the pin today per podiatry - Current Medication List Current Medications: Active Medications Acetaminophen (Tylenol -) 650 mg PO Q6H PRN PRN Reason: FEVER Last Admin: 06/26/20 01:16 Dose: 650 mg Documented by: Albuterol Sulfate (Ventolin Hfa Inhaler -) 2 puff IH Q6H PRN PRN Reason: WHEEZING Albuterol/Ipratropium (Duoneb -) 1 amp NEB QID PRN PRN Reason: WHEEZING Last Admin: 06/25/20 20:25 Dose: 1 amp Documented by: Atorvastatin Calcium (Lipitor -) 20 mg PO [facility] Last Admin: 06/25/20 21:37 Dose: 20 mg Documented by: Budesonide (Pulmicort 0.25 Mg Nebulizer -) 1 amp NEB RBID [facility] Last Admin: 06/25/20 20:15 Dose: 1 amp Documented by: Bupropion HCl (Wellbutrin -) 100 mg PO DAILY [facility] Famotidine (Pepcid -) 40 mg PO DAILY [facility] Last Admin: 06/25/20 09:12 Dose: 40 mg Documented by: Heparin Sodium (Porcine) (Heparin -) 5,000 unit SQ BID [facility] Last Admin: 06/25/20 21:37 Dose: 5,000 unit Documented by: Vancomycin HCl (Vancomycin (Pre-Docked)) 1,000 mg in 250 mls @ 166.667 mls/hr IVPB Q12H [facility]; Protocol Last Admin: 06/25/20 22:15 Dose: 166.667 mls/hr Documented by: Levothyroxine Sodium (Synthroid -) 88 mcg PO DAILY@0700 [facility] Last Admin: 06/25/20 07:00 Dose: Not Given Documented by: Loratadine (Claritin -) 10 mg PO DAILY [facility] Last Admin: 06/25/20 09:12 Dose: 10 mg Documented by: Losartan Potassium (Cozaar -) 25 mg PO DAILY [facility] Last Admin: 06/25/20 09:12 Dose: 25 mg Documented by: Montelukast Sodium (Singulair -) 10 mg PO [facility] Last Admin: 06/25/20 21:37 Dose: 10 mg Documented by: Sima Turner 100/ (62.5/25 Mcg) 1 each IH DAILY [facility] Prednisone (Deltasone -) 5 mg PO DAILY [facility] Last Admin: 06/25/20 09:12 Dose: 5 mg Documented by: - Objective Vital Signs: Vital Signs Temperature 97.7 F 06/26/20 05:40 Pulse Rate 85 06/26/20 05:40 Respiratory Rate 18 06/26/20 05:40 Blood Pressure 130/77 06/26/20 05:40 O2 Sat by Pulse Oximetry (%) 92 L 06/26/20 05:40 Constitutional: Yes: No Distress, Calm Eyes: Yes: Conjunctiva Clear HENT: Yes: Atraumatic Neck: Yes: Supple Cardiovascular: Yes: Regular Rate and Rhythm Respiratory: Yes: CTA Bilaterally Gastrointestinal: Yes: Soft. No: Tenderness Genitourinary: No: Hematuria Musculoskeletal: No: Joint Stiffness, Joint Swelling Extremities: Yes: Other (L foot dressed no edema). No: Cold, Cool, Cyanosis Edema: No Integumentary: No: Rash, Venous Stasis Changes Neurological: Yes: Alert, Oriented ...Motor Strength: WNL Psychiatric: Yes: Alert, Oriented. No: Agitated, Suicidal Ideation Labs: CBC, BMP 06/25/20 07:37 06/25/20 06:00 INR, PTT INR 1.16 (0.83-1.09) H 06/24/20 02:50 - ....Imaging X-ray: Report Reviewed Other: Report Reviewed Assessment/Plan 65F PMH HTN, HLD, COPD, Hypothyroid c/o 2 days fever and fatigue. s/p left foot surgery due to toe dislocation on 06/05/[address] / pin exposed . s/p fall at home 2-3 days ago L shoulder pain check foot, shoulder xrays LLE venous US no DVT IV ATB per ID; cultures sent DVT pfx pain meds prn podiatry f.u ortho f/u falls PFX dw pt do not get OOB alone d/w pt and staff
[2020-06-26 08:38] LABS: BASO % 0.8 % (0-2.0); EOS % 2.2 % (0-4.5); HEMATOCRIT 28.9 % (32.4-45.2); HEMOGLOBIN 9.7 GM/dL (10.7-15.3); LYMPH % 19.1 % (8-40); MCH 25.9 pg (25.7-33.7); MCHC 33.5 g/dl (32.0-36.0); MEAN CELL VOLUME 77.3 fl (80-96); MEAN PLT VOLUME 7.6 fl (7.5-11.1); NEUT % 70.9 % (42.8-82.8); PLATELET COUNT 401 K/MM3 (134-434); RBC 3.74 M/mm3 (3.60-5.2); RDW 17.2 % (11.6-15.6); WHITE BLOOD COUNT 9.7 K/mm3 (4.0-10.0)
[2020-06-26] MEDS: BUDESONIDE 0.25 MG/2ML INH SUSP VIAL NEB SCH ×2 (08:49→20:07)
[2020-06-26 08:51] LABS: ALBUMIN 2.5 g/dl (3.4-5.0); BILIRUBIN,TOTAL 0.2 mg/dL (0.2-1); BLOOD UREA NITROGEN 10.6 mg/dL (7-18); CALCIUM 8.3 mg/dL (8.5-10.1); CREATININE 0.6 mg/dL (0.55-1.3); POTASSIUM 3.9 mmol/L (3.5-5.1); TOT PROT 6.7 g/dl (6.4-8.2)
[2020-06-26] MEDS: FAMOTIDINE 20 MG TABLET PO SCH (09:30)
[2020-06-26] MEDS: predniSONE 5 MG TABLET (UD) PO SCH (09:30)
[2020-06-26] MEDS: LORATADINE 10 MG TABLET PO SCH (09:30)
[2020-06-26] MEDS: LOSARTAN POTASSIUM 25 MG TABLET PO SCH (09:30)
[2020-06-26] MEDS: HEPARIN NA (PORCINE) 5,000 UNITS/ML 1ML VIAL SQ SCH ×2 (09:30→21:20)
[2020-06-26] MEDS: buPROPion HCL 100 MG TABLET PO SCH (09:31)
[2020-06-26] MEDS: TRELEGY ELLIPTA IH SCH (09:31)
[2020-06-26] MEDS: VANCOMYCIN 1 GRAM (PRE-DOCKED) 1,000 MG/250 ML BAG IVPB SCH ×2 (10:29→22:40)
--- NOTE | 2020-06-26 12:05 | PN ---
Progress Note, Physician History of Present Illness: POST OP BUNIONECTOMY AND FUSION AND MPJ FUSION 2ND LEFT 06/05/2020 according to patient at [facility]. Does not know Surgeons name but has cell number. Hiowever states pain has improved since admission. - Current Medication List Current Medications: Active Medications Acetaminophen (Tylenol -) 650 mg PO Q6H PRN PRN Reason: FEVER Last Admin: 06/26/20 01:16 Dose: 650 mg Documented by: Albuterol Sulfate (Ventolin Hfa Inhaler -) 2 puff IH Q6H PRN PRN Reason: WHEEZING Albuterol/Ipratropium (Duoneb -) 1 amp NEB QID PRN PRN Reason: WHEEZING Last Admin: 06/25/20 20:25 Dose: 1 amp Documented by: Atorvastatin Calcium (Lipitor -) 20 mg PO HS [facility] Last Admin: 06/25/20 21:37 Dose: 20 mg Documented by: Budesonide (Pulmicort 0.25 Mg Nebulizer -) 1 amp NEB RBID [facility] Last Admin: 06/26/20 08:49 Dose: 1 amp Documented by: Bupropion HCl (Wellbutrin -) 100 mg PO DAILY [facility] Last Admin: 06/26/20 09:31 Dose: 100 mg Documented by: Famotidine (Pepcid -) 40 mg PO DAILY [facility] Last Admin: 06/26/20 09:30 Dose: 40 mg Documented by: Heparin Sodium (Porcine) (Heparin -) 5,000 unit SQ BID [facility] Last Admin: 06/26/20 09:30 Dose: 5,000 unit Documented by: Vancomycin HCl (Vancomycin (Pre-Docked)) 1,000 mg in 250 mls @ 166.667 mls/hr IVPB Q12H [facility]; Protocol Last Admin: 06/26/20 10:29 Dose: 166.667 mls/hr Documented by: Levothyroxine Sodium (Synthroid -) 88 mcg PO DAILY@0700 [facility] Last Admin: 06/26/20 06:13 Dose: 88 mcg Documented by: Loratadine (Claritin -) 10 mg PO DAILY [facility] Last Admin: 06/26/20 09:30 Dose: 10 mg Documented by: Losartan Potassium (Cozaar -) 25 mg PO DAILY [facility] Last Admin: 06/26/20 09:30 Dose: 25 mg Documented by: Montelukast Sodium (Singulair -) 10 mg PO HS [facility] Last Admin: 06/25/20 21:37 Dose: 10 mg Documented by: Sima Ellipta 100/ (62.5/25 Mcg) 1 each IH DAILY [facility] Last Admin: 06/26/20 09:31 Dose: 1 each Documented by: Prednisone (Deltasone -) 5 mg PO DAILY [facility] Last Admin: 06/26/20 09:30 Dose: 5 mg Documented by: - Objective Vital Signs: Vital Signs Temperature 98 F 06/26/20 10:08 Pulse Rate 100 H 06/26/20 10:08 Respiratory Rate 18 06/26/20 10:08 Blood Pressure 143/74 06/26/20 10:08 O2 Sat by Pulse Oximetry (%) 99 06/26/20 10:08 Extremities: Yes: Other (left foot resolved cellulitis/erythema, wire intact and protruding from 2nd toe left) Labs: CBC, BMP 06/26/20 07:18 06/26/20 07:18 INR, PTT INR 1.16 (0.83-1.09) H 06/24/20 02:50 Assessment/Plan cellulitis left forefoot resolved post op bunionetomy/fusion left foot 06/05/2020 IVABX as per ID. Spoke to her Solution Make Up Operator yesterday wants to leave wire in 2nd toe if possible. Advised that if improved would leave in and could follow up with her. WBC has improved and is normal range today. Would recommend antibiotics to go home with and betadine dressing change to left foot. Follow up with her oven equipment repairer upon dc. Will follow till then.
[2020-06-26] MEDS: MONTELUKAST NA 10 MG TABLET PO SCH (21:20)
[2020-06-26] MEDS: ATORVASTATIN CA 20 MG TABLET (FP) PO SCH (21:21)
[2020-06-27] MEDS ORDERED: PT OWN MED DRAWER 7, Y5N ONE (05:36)
[2020-06-27] MEDS: LEVOTHYROXINE NA 88 MCG TABLET (FP) PO SCH (06:01)
[2020-06-27] MEDS: ACETAMINOPHEN 325 MG TABLET (FP) PO PRN (06:29)
[2020-06-27] MEDS: BUDESONIDE 0.25 MG/2ML INH SUSP VIAL NEB SCH ×2 (07:25→19:55)
[2020-06-27 07:57] LABS: BASO % 0.7 % (0-2.0); EOS % 2.3 % (0-4.5); HEMATOCRIT 29.8 % (32.4-45.2); HEMOGLOBIN 9.6 GM/dL (10.7-15.3); LYMPH % 16.8 % (8-40); MCH 24.9 pg (25.7-33.7); MCHC 32.3 g/dl (32.0-36.0); MEAN PLT VOLUME 7.2 fl (7.5-11.1); MONO % 7.8 % (3.8-10.2); NEUT % 72.4 % (42.8-82.8); PLATELET COUNT 442 K/MM3 (134-434); RBC 3.87 M/mm3 (3.60-5.2); RDW 17.2 % (11.6-15.6); WHITE BLOOD COUNT 11.1 K/mm3 (4.0-10.0)
[2020-06-27 08:25] LABS: ALBUMIN 2.6 g/dl (3.4-5.0); BILIRUBIN,TOTAL 0.5 mg/dL (0.2-1); BLOOD UREA NITROGEN 9.7 mg/dL (7-18); CALCIUM 8.3 mg/dL (8.5-10.1); CREATININE 0.6 mg/dL (0.55-1.3); POTASSIUM 3.8 mmol/L (3.5-5.1); TOT PROT 6.9 g/dl (6.4-8.2)
--- NOTE | 2020-06-27 08:31 | PN ---
Progress Note, Physician Chief Complaint: no new c/o wants to revisit pin removal with podiatry - Current Medication List Current Medications: Active Medications Acetaminophen (Tylenol -) 650 mg PO Q6H PRN PRN Reason: FEVER Last Admin: 06/27/20 06:29 Dose: 650 mg Documented by: Albuterol Sulfate (Ventolin Hfa Inhaler -) 2 puff IH Q6H PRN PRN Reason: WHEEZING Albuterol/Ipratropium (Duoneb -) 1 amp NEB QID PRN PRN Reason: WHEEZING Last Admin: 06/25/20 20:25 Dose: 1 amp Documented by: Atorvastatin Calcium (Lipitor -) 20 mg PO [facility] Last Admin: 06/26/20 21:21 Dose: 20 mg Documented by: Budesonide (Pulmicort 0.25 Mg Nebulizer -) 1 amp NEB RBID [facility] Last Admin: 06/26/20 20:07 Dose: 1 amp Documented by: Bupropion HCl (Wellbutrin -) 100 mg PO DAILY [facility] Last Admin: 06/26/20 09:31 Dose: 100 mg Documented by: Famotidine (Pepcid -) 40 mg PO DAILY [facility] Last Admin: 06/26/20 09:30 Dose: 40 mg Documented by: Heparin Sodium (Porcine) (Heparin -) 5,000 unit SQ BID [facility] Last Admin: 06/26/20 21:20 Dose: 5,000 unit Documented by: Vancomycin HCl (Vancomycin (Pre-Docked)) 1,000 mg in 250 mls @ 166.667 mls/hr IVPB Q12H [facility]; Protocol Last Admin: 06/26/20 22:40 Dose: 166.667 mls/hr Documented by: Levothyroxine Sodium (Synthroid -) 88 mcg PO DAILY@0700 [facility] Last Admin: 06/27/20 06:01 Dose: 88 mcg Documented by: Loratadine (Claritin -) 10 mg PO DAILY [facility] Last Admin: 06/26/20 09:30 Dose: 10 mg Documented by: Losartan Potassium (Cozaar -) 25 mg PO DAILY [facility] Last Admin: 06/26/20 09:30 Dose: 25 mg Documented by: Montelukast Sodium (Singulair -) 10 mg PO [facility] Last Admin: 06/26/20 21:20 Dose: 10 mg Documented by: Trelekeshia Ellipta 100/ (62.5/25 Mcg) 1 each IH DAILY [facility] Last Admin: 06/26/20 09:31 Dose: 1 each Documented by: Prednisone (Deltasone -) 5 mg PO DAILY [facility] Last Admin: 06/26/20 09:30 Dose: 5 mg Documented by: - Objective Vital Signs: Vital Signs Temperature 97.9 F 06/27/20 05:18 Pulse Rate 87 06/27/20 05:18 Respiratory Rate 18 06/27/20 05:18 Blood Pressure 154/94 06/27/20 05:18 O2 Sat by Pulse Oximetry (%) 92 L 06/27/20 05:18 Constitutional: Yes: No Distress Eyes: Yes: Conjunctiva Clear HENT: Yes: Atraumatic Neck: Yes: Supple Cardiovascular: Yes: Regular Rate and Rhythm Respiratory: Yes: CTA Bilaterally Gastrointestinal: Yes: Soft. No: Tenderness Genitourinary: No: Hematuria Extremities: Yes: Other (L foot dressed). No: Cold, Cool Integumentary: No: Rash Neurological: Yes: Alert, Oriented ...Motor Strength: WNL Psychiatric: Yes: Alert, Oriented Labs: CBC, BMP 06/27/20 07:30 06/27/20 07:30 INR, PTT INR 1.16 (0.83-1.09) H 06/24/20 02:50 - ....Imaging Other: Report Reviewed Assessment/Plan 65F PMH HTN, HLD, COPD, Hypothyroid c/o 2 days fever and fatigue. s/p left foot surgery due to toe dislocation on 06/05/[address] still in place / pin management per podiatry IV ATB per ID; cultures sent DVT pfx pain meds prn podiatry f.u ortho f/u falls PFX dw pt do not get OOB alone d/w pt and staff
[2020-06-27] MEDS: LOSARTAN POTASSIUM 25 MG TABLET PO SCH (09:57)
[2020-06-27] MEDS: buPROPion HCL 100 MG TABLET PO SCH (09:58)
[2020-06-27] MEDS: LORATADINE 10 MG TABLET PO SCH (09:58)
[2020-06-27] MEDS: HEPARIN NA (PORCINE) 5,000 UNITS/ML 1ML VIAL SQ SCH ×2 (09:58→21:00)
[2020-06-27] MEDS: FAMOTIDINE 20 MG TABLET PO SCH (09:58)
[2020-06-27] MEDS: predniSONE 5 MG TABLET (UD) PO SCH (09:58)
[2020-06-27] MEDS: TRELEGY ELLIPTA IH SCH (09:58)
[2020-06-27] MEDS: VANCOMYCIN 1 GRAM (PRE-DOCKED) 1,000 MG/250 ML BAG IVPB SCH ×2 (11:08→22:12)
[2020-06-27] MEDS: ALBUTEROL SO4 2.5/IPRATROPIUM 0.5 INH SOL 3 ML VIAL.NEB. NEB PRN (15:44)
[2020-06-27] MEDS: MONTELUKAST NA 10 MG TABLET PO SCH (21:00)
[2020-06-27] MEDS: ATORVASTATIN CA 20 MG TABLET (FP) PO SCH (21:00)
--- NOTE | 2020-06-27 22:12 | PN ---
Progress Note, Physician Chief Complaint: NO C/O FOOT PAIN NO FEVER/ CHILLS URINE C/S GBS LOW GRADE FEVER/LEUKOCYTOSIS IMPROVED - Current Medication List Current Medications: Active Medications Acetaminophen (Tylenol -) 650 mg PO Q6H PRN PRN Reason: FEVER Last Admin: 06/27/20 06:29 Dose: 650 mg Documented by: Albuterol Sulfate (Ventolin Hfa Inhaler -) 2 puff IH Q6H PRN PRN Reason: WHEEZING Albuterol/Ipratropium (Duoneb -) 1 amp NEB QID PRN PRN Reason: WHEEZING Last Admin: 06/27/20 15:44 Dose: 1 amp Documented by: Atorvastatin Calcium (Lipitor -) 20 mg PO [facility] Last Admin: 06/27/20 21:00 Dose: 20 mg Documented by: Budesonide (Pulmicort 0.25 Mg Nebulizer -) 1 amp NEB RBID [facility] Last Admin: 06/27/20 19:55 Dose: 1 amp Documented by: Bupropion HCl (Wellbutrin -) 100 mg PO DAILY [facility] Last Admin: 06/27/20 09:58 Dose: 100 mg Documented by: Famotidine (Pepcid -) 40 mg PO DAILY [facility] Last Admin: 06/27/20 09:58 Dose: 40 mg Documented by: Heparin Sodium (Porcine) (Heparin -) 5,000 unit SQ BID [facility] Last Admin: 06/27/20 21:00 Dose: 5,000 unit Documented by: Vancomycin HCl (Vancomycin (Pre-Docked)) 1,000 mg in 250 mls @ 166.667 mls/hr IVPB Q12H [facility]; Protocol Last Admin: 06/27/20 11:08 Dose: 166.667 mls/hr Documented by: Levothyroxine Sodium (Synthroid -) 88 mcg PO DAILY@0700 [facility] Last Admin: 06/27/20 06:01 Dose: 88 mcg Documented by: Loratadine (Claritin -) 10 mg PO DAILY [facility] Last Admin: 06/27/20 09:58 Dose: 10 mg Documented by: Losartan Potassium (Cozaar -) 25 mg PO DAILY [facility] Last Admin: 06/27/20 09:57 Dose: 25 mg Documented by: Montelukast Sodium (Singulair -) 10 mg PO [facility] Last Admin: 06/27/20 21:00 Dose: 10 mg Documented by: Trelegy Ellipta 100/ (62.5/25 Mcg) 1 each IH DAILY [facility] Last Admin: 06/27/20 09:58 Dose: 1 each Documented by: Prednisone (Deltasone -) 5 mg PO DAILY [facility] Last Admin: 06/27/20 09:58 Dose: 5 mg Documented by: - Objective Vital Signs: Vital Signs Temperature 97.6 F 06/27/20 21:53 Pulse Rate 93 H 06/27/20 21:53 Respiratory Rate 18 06/27/20 21:53 Blood Pressure 148/88 06/27/20 21:53 O2 Sat by Pulse Oximetry (%) 96 06/27/20 21:53 Constitutional: Yes: No Distress Cardiovascular: Yes: Regular Rate and Rhythm, S1, S2 Respiratory: Yes: CTA Bilaterally Gastrointestinal: Yes: Normal Bowel Sounds, Soft Extremities: Yes: Other (DECREASED ERYTHEMA 2ND TOE NO DRAINAGE NOTED) Labs: CBC, BMP 06/27/20 07:30 06/27/20 07:30 INR, PTT INR 1.16 (0.83-1.09) H 06/24/20 02:50 Assessment/Plan CELLULITIS, 2ND/ GREAT TOE + EXPOSED HARDWARE FEVER/ LEUKOCYTOSIS PCN/FQ ALLERGIES CONTINUE VANCOMYCIN
[2020-06-28] MEDS: LEVOTHYROXINE NA 88 MCG TABLET (FP) PO SCH (06:00)
--- NOTE | 2020-06-28 09:19 | PN ---
Progress Note (short form) - Note Progress Note: Patient seen at bedside Post op bunionectomy left foot on 06/05 at [facility] Patient is feeling much better and is going home today Left foot resolved cellulitis/erythema,wire intact and protruding from 2nd digit left foot Ivabx as per id, wbc is normal range Recommend antibiotics to go home with dsd applied and Dr Kirkland will follow till patient is discharged
[2020-06-28] MEDS ORDERED: PT OWN MED DRAWER 7, Y5N ONE (09:28)
[2020-06-28] MEDS: LORATADINE 10 MG TABLET PO SCH (09:42)
[2020-06-28] MEDS: LOSARTAN POTASSIUM 25 MG TABLET PO SCH (09:42)
[2020-06-28] MEDS: FAMOTIDINE 20 MG TABLET PO SCH (09:42)
[2020-06-28] MEDS: buPROPion HCL 100 MG TABLET PO SCH (09:43)
[2020-06-28] MEDS: predniSONE 5 MG TABLET (UD) PO SCH (09:43)
[2020-06-28] MEDS: HEPARIN NA (PORCINE) 5,000 UNITS/ML 1ML VIAL SQ SCH ×2 (09:44→22:06)
[2020-06-28] MEDS: TRELEGY ELLIPTA IH SCH (09:45)
[2020-06-28] MEDS: BUDESONIDE 0.25 MG/2ML INH SUSP VIAL NEB SCH ×2 (09:55→20:00)
--- NOTE | 2020-06-28 10:00 | PN ---
Progress Note, Physician Chief Complaint: feeling better - pin pulled out by podiatry will d/w ID for DC planning - Current Medication List Current Medications: Active Medications Acetaminophen (Tylenol -) 650 mg PO Q6H PRN PRN Reason: FEVER Last Admin: 06/27/20 06:29 Dose: 650 mg Documented by: Albuterol Sulfate (Ventolin Hfa Inhaler -) 2 puff IH Q6H PRN PRN Reason: WHEEZING Albuterol/Ipratropium (Duoneb -) 1 amp NEB QID PRN PRN Reason: WHEEZING Last Admin: 06/27/20 15:44 Dose: 1 amp Documented by: Atorvastatin Calcium (Lipitor -) 20 mg PO [facility] Last Admin: 06/27/20 21:00 Dose: 20 mg Documented by: Budesonide (Pulmicort 0.25 Mg Nebulizer -) 1 amp NEB RBID [facility] Last Admin: 06/27/20 19:55 Dose: 1 amp Documented by: Bupropion HCl (Wellbutrin -) 100 mg PO DAILY [facility] Last Admin: 06/28/20 09:43 Dose: 100 mg Documented by: Famotidine (Pepcid -) 40 mg PO DAILY [facility] Last Admin: 06/28/20 09:42 Dose: 40 mg Documented by: Heparin Sodium (Porcine) (Heparin -) 5,000 unit SQ BID [facility] Last Admin: 06/28/20 09:44 Dose: 5,000 unit Documented by: Vancomycin HCl (Vancomycin (Pre-Docked)) 1,000 mg in 250 mls @ 166.667 mls/hr IVPB Q12H [facility]; Protocol Last Admin: 06/27/20 22:12 Dose: 166.667 mls/hr Documented by: Levothyroxine Sodium (Synthroid -) 88 mcg PO DAILY@0700 [facility] Last Admin: 06/28/20 06:00 Dose: 88 mcg Documented by: Loratadine (Claritin -) 10 mg PO DAILY [facility] Last Admin: 06/28/20 09:42 Dose: 10 mg Documented by: Losartan Potassium (Cozaar -) 25 mg PO DAILY [facility] Last Admin: 06/28/20 09:42 Dose: 25 mg Documented by: Montelukast Sodium (Singulair -) 10 mg PO [facility] Last Admin: 06/27/20 21:00 Dose: 10 mg Documented by: Sima Turner 100/ (62.5/25 Mcg) 1 each IH DAILY [facility] Last Admin: 06/28/20 09:45 Dose: 1 each Documented by: Prednisone (Deltasone -) 5 mg PO DAILY [facility] Last Admin: 06/28/20 09:43 Dose: 5 mg Documented by: - Objective Vital Signs: Vital Signs Temperature 97.8 F 06/28/20 05:00 Pulse Rate 85 06/28/20 05:00 Respiratory Rate 18 06/27/20 21:53 Blood Pressure 127/67 06/28/20 05:00 O2 Sat by Pulse Oximetry (%) 91 L 06/28/20 05:00 Constitutional: Yes: No Distress Eyes: Yes: Conjunctiva Clear HENT: Yes: Atraumatic Neck: Yes: Supple Cardiovascular: Yes: Regular Rate and Rhythm Respiratory: Yes: CTA Bilaterally Gastrointestinal: Yes: Soft. No: Tenderness Genitourinary: No: Hematuria Musculoskeletal: No: Joint Stiffness, Joint Swelling Extremities: Yes: Other (foot dressed). No: Cold, Cool, External Rotation Integumentary: No: Rash Neurological: Yes: Alert, Oriented ...Motor Strength: WNL Psychiatric: Yes: Alert, Oriented. No: Agitated, Suicidal Ideation Labs: CBC, BMP 06/27/20 07:30 06/27/20 07:30 INR, PTT INR 1.16 (0.83-1.09) H 06/24/20 02:50 - ....Imaging Other: Report Reviewed Assessment/Plan 65F PMH HTN, HLD, COPD, Hypothyroid c/o 2 days fever and fatigue. s/p left foot surgery due to toe dislocation on 06/05/[address] still in [address] / pin pulled out per podiatry IV ATB per ID; cultures sent DVT pfx pain meds prn podiatry f.u ortho f/u falls PFX dw pt do not get OOB alone DC planning - ID / ATB d/w pt and staff
[2020-06-28] MEDS: ALBUTEROL SO4 2.5/IPRATROPIUM 0.5 INH SOL 3 ML VIAL.NEB. NEB PRN ×2 (10:09→14:16)
[2020-06-28] MEDS: VANCOMYCIN 1 GRAM (PRE-DOCKED) 1,000 MG/250 ML BAG IVPB SCH (12:35)
--- NOTE | 2020-06-28 12:42 | PN ---
Progress Note (short form) - Note Progress Note: Returned to see patient .She was in pain from the wire in her 2nd digit Wire was loose and bent removed kwire and dsd was applied Patient felt much better after wire was removed
[2020-06-28 14:13] VITALS: TEMP 98.2
--- NOTE | 2020-06-28 15:50 | PN ---
Progress Note, Physician Chief Complaint: NO C/O FOOT PAIN NO FEVER/ CHILLS URINE C/S GBS - Current Medication List Current Medications: Active Medications Acetaminophen (Tylenol -) 650 mg PO Q6H PRN PRN Reason: FEVER Last Admin: 06/27/20 06:29 Dose: 650 mg Documented by: Albuterol Sulfate (Ventolin Hfa Inhaler -) 2 puff IH Q6H PRN PRN Reason: WHEEZING Albuterol/Ipratropium (Duoneb -) 1 amp NEB QID PRN PRN Reason: WHEEZING Last Admin: 06/28/20 14:16 Dose: 1 amp Documented by: Atorvastatin Calcium (Lipitor -) 20 mg PO [facility] Last Admin: 06/27/20 21:00 Dose: 20 mg Documented by: Budesonide (Pulmicort 0.25 Mg Nebulizer -) 1 amp NEB RBID [facility] Last Admin: 06/28/20 09:55 Dose: 1 amp Documented by: Bupropion HCl (Wellbutrin -) 100 mg PO DAILY [facility] Last Admin: 06/28/20 09:43 Dose: 100 mg Documented by: Famotidine (Pepcid -) 40 mg PO DAILY [facility] Last Admin: 06/28/20 09:42 Dose: 40 mg Documented by: Heparin Sodium (Porcine) (Heparin -) 5,000 unit SQ BID [facility] Last Admin: 06/28/20 09:44 Dose: 5,000 unit Documented by: Vancomycin HCl (Vancomycin (Pre-Docked)) 1,000 mg in 250 mls @ 166.667 mls/hr IVPB Q12H [facility]; Protocol Last Admin: 06/28/20 12:35 Dose: 166.667 mls/hr Documented by: Levothyroxine Sodium (Synthroid -) 88 mcg PO DAILY@0700 [facility] Last Admin: 06/28/20 06:00 Dose: 88 mcg Documented by: Loratadine (Claritin -) 10 mg PO DAILY [facility] Last Admin: 06/28/20 09:42 Dose: 10 mg Documented by: Losartan Potassium (Cozaar -) 25 mg PO DAILY [facility] Last Admin: 06/28/20 09:42 Dose: 25 mg Documented by: Montelukast Sodium (Singulair -) 10 mg PO [facility] Last Admin: 06/27/20 21:00 Dose: 10 mg Documented by: Trelegy Ellipta 100/ (62.5/25 Mcg) 1 each IH DAILY [facility] Last Admin: 06/28/20 09:45 Dose: 1 each Documented by: Prednisone (Deltasone -) 5 mg PO DAILY [facility] Last Admin: 06/28/20 09:43 Dose: 5 mg Documented by: - Objective Vital Signs: Vital Signs Temperature 98.2 F 06/28/20 14:11 Pulse Rate 100 H 06/28/20 14:11 Respiratory Rate 20 06/28/20 14:11 Blood Pressure 144/82 06/28/20 14:11 O2 Sat by Pulse Oximetry (%) 95 06/28/20 14:11 Constitutional: Yes: No Distress Eyes: Yes: Conjunctiva Clear Cardiovascular: Yes: Regular Rate and Rhythm Respiratory: Yes: CTA Bilaterally Gastrointestinal: Yes: Normal Bowel Sounds, Soft. No: Tenderness Labs: CBC, BMP 06/27/20 07:30 06/27/20 07:30 INR, PTT INR 1.16 (0.83-1.09) H 06/24/20 02:50 Assessment/Plan CELLULITIS, 2ND/ GREAT TOE RESOLVED HARDWARE REMOVED FEVER/ LEUKOCYTOSIS IMPROVED PCN/FQ ALLERGIES SUBSTITUTE CLINDAMYCIN 300MG PO TID X 7D
--- NOTE | 2020-06-28 16:12 | DS ---
Physical Examination Vital Signs: Vital Signs Temperature 98.2 F 06/28/20 14:11 Pulse Rate 100 H 06/28/20 14:11 Respiratory Rate 06/28/20 14:11 Blood Pressure 144/82 06/28/20 14:11 O2 Sat by Pulse Oximetry (%) 95 06/28/20 14:11 Findings/Remarks: cleared by ID for DC po Keflex see note pin pulled by podiatry - f/u as advised see PE / progress note today Labs: CBC, BMP 06/27/20 07:30 06/27/20 07:30 Discharge Summary Problems reviewed: Yes Reason For Visit: SEPSIS Current Active Problems COPD exacerbation (Acute) Cellulitis (Acute) Post op infection (Acute) Procedures: Principal: 65 YOF admitted with L foot cellulitis s/p foot surgery / hardware in Other Procedures: IV ATB per ID; podiatry eval; pulled pin (was exposed through skin) Hospital Course: improved with above; further ATB per ID; further foot wound management per podia try; needs SNF - can not step on the foot until cleared by podiatry; to f/u with [place] and [place]iatry [place] SN[place] within 1 week; f/u PCP after DC from [place] in 1 week; Condition: Fair - Instructions Referrals: Amarjit Burrell MD [Primary Care Provider] - Daron Sheets MD [Staff Physician] - Rios Rodriguez MD [Staff Physician] - Disposition: [facility] - Home Medications Comprehensive Discharge Medication List: Ambulatory Orders Albuterol 2.5/Ipratropium 0.5 [Duoneb -] 1 neb IH QID 06/24/20 Albuterol Sulfate Inhaler - [Ventolin Hfa Inhaler -] 2 inh PO Q6H 06/24/20 Atorvastatin Ca [Lipitor] 20 mg PO HS 06/24/20 Budesonide [Pulmicort 0.25 mg Nebulizer -] 1 neb NEB ONCE 06/24/20 Bupropion HCl 100 mg PO DAILY 06/24/20 Cetirizine HCl 10 mg PO DAILY 06/24/20 Famotidine [Pepcid -] 40 mg PO DAILY 06/24/20 Levothyroxine [Synthroid -] 88 mcg PO DAILY 06/24/20 Losartan Potassium 25 mg PO DAILY 06/24/20 Montelukast Na [Singulair -] 10 mg PO HS 06/24/20 predniSONE [Deltasone -] 5 mg PO DAILY 06/24/20
[2020-06-28] MEDS: ATORVASTATIN CA 20 MG TABLET (FP) PO SCH (22:06)
[2020-06-28] MEDS: MONTELUKAST NA 10 MG TABLET PO SCH (22:06)
[2020-06-28] MEDS: CLINDAMYCIN HCL 150 MG CAPSULE (FP) PO SCH (22:06)
[2020-06-29] MEDS ORDERED: ACETAMINOPHEN 325 MG TABLET (FP) PO ONE (01:30)
[2020-06-29] MEDS ORDERED: oxyCODONE HCL 5 MG TABLET PO ONE (01:30)
[2020-06-29] MEDS ORDERED: PT OWN MED DRAWER 7, Y5N ONE ×2 (06:15→09:12)
[2020-06-29] MEDS: LEVOTHYROXINE NA 88 MCG TABLET (FP) PO SCH (06:17)
[2020-06-29] MEDS: CLINDAMYCIN HCL 150 MG CAPSULE (FP) PO SCH (06:17)
[2020-06-29] MEDS: ALBUTEROL SO4 2.5/IPRATROPIUM 0.5 INH SOL 3 ML VIAL.NEB. NEB PRN ×2 (06:48→09:31)
--- NOTE | 2020-06-29 09:05 | PN ---
Progress Note, Physician Chief Complaint: follow up left foot. - Current Medication List Current Medications: Active Medications Acetaminophen (Tylenol -) 650 mg PO Q6H PRN PRN Reason: FEVER Last Admin: 06/27/20 06:29 Dose: 650 mg Documented by: Albuterol Sulfate (Ventolin Hfa Inhaler -) 2 puff IH Q6H PRN PRN Reason: WHEEZING Albuterol/Ipratropium (Duoneb -) 1 amp NEB QID PRN PRN Reason: WHEEZING Last Admin: 06/29/20 06:48 Dose: 1 amp Documented by: Atorvastatin Calcium (Lipitor -) 20 mg PO [facility] Last Admin: 06/28/20 22:06 Dose: 20 mg Documented by: Budesonide (Pulmicort 0.25 Mg Nebulizer -) 1 amp NEB RBID [facility] Last Admin: 06/28/20 20:00 Dose: 1 amp Documented by: Bupropion HCl (Wellbutrin -) 100 mg PO DAILY [facility] Last Admin: 06/28/20 09:43 Dose: 100 mg Documented by: Clindamycin HCl (Cleocin -) 300 mg PO TID [facility] Last Admin: 06/29/20 06:17 Dose: 300 mg Documented by: Famotidine (Pepcid -) 40 mg PO DAILY [facility] Last Admin: 06/28/20 09:42 Dose: 40 mg Documented by: Heparin Sodium (Porcine) (Heparin -) 5,000 unit SQ BID [facility] Last Admin: 06/28/20 22:06 Dose: 5,000 unit Documented by: Levothyroxine Sodium (Synthroid -) 88 mcg PO DAILY@0700 [facility] Last Admin: 06/29/20 06:17 Dose: 88 mcg Documented by: Loratadine (Claritin -) 10 mg PO DAILY [facility] Last Admin: 06/28/20 09:42 Dose: 10 mg Documented by: Losartan Potassium (Cozaar -) 25 mg PO DAILY [facility] Last Admin: 06/28/20 09:42 Dose: 25 mg Documented by: Montelukast Sodium (Singulair -) 10 mg PO [facility] Last Admin: 06/28/20 22:06 Dose: 10 mg Documented by: Trelegy Ellipta 100/ (62.5/25 Mcg) 1 each IH DAILY [facility] Last Admin: 06/28/20 09:45 Dose: 1 each Documented by: Prednisone (Deltasone -) 5 mg PO DAILY [facility] Last Admin: 06/28/20 09:43 Dose: 5 mg Documented by: - Objective Vital Signs: Vital Signs Temperature 98.2 F 06/29/20 05:00 Pulse Rate 80 06/29/20 05:00 Respiratory Rate 18 06/28/20 21:00 Blood Pressure 133/81 06/29/20 05:00 O2 Sat by Pulse Oximetry (%) 94 L 06/29/20 05:00 Extremities: Yes: Other (resolved cellulitis, -drainage, -mal odor) Labs: CBC, BMP 06/27/20 07:30 06/27/20 07:30 INR, PTT INR 1.16 (0.83-1.09) H 06/24/20 02:50 Assessment/Plan cellulitis left forefoot resolved post op bunionetomy/fusion left foot 06/05/2020 Pt going to rehab. Abx as per ID. 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 xray today befor dc.
[2020-06-29] MEDS: BUDESONIDE 0.25 MG/2ML INH SUSP VIAL NEB SCH (09:30)
[2020-06-29] MEDS: FAMOTIDINE 20 MG TABLET PO SCH (09:40)
[2020-06-29] MEDS: predniSONE 5 MG TABLET (UD) PO SCH (09:40)
[2020-06-29] MEDS: LORATADINE 10 MG TABLET PO SCH (09:40)
[2020-06-29] MEDS: LOSARTAN POTASSIUM 25 MG TABLET PO SCH (09:41)
[2020-06-29] MEDS: buPROPion HCL 100 MG TABLET PO SCH (09:41)
[2020-06-29] MEDS: HEPARIN NA (PORCINE) 5,000 UNITS/ML 1ML VIAL SQ SCH (09:41)
[2020-06-29] MEDS: TRELEGY ELLIPTA IH SCH (09:43)
--- NOTE | 2020-06-29 10:06 | PN ---
Progress Note, Physician Chief Complaint: in bed no new c/o d/w podiatry dr Rojas OK to DC to SNF to f/u with dr Rodriguez in [place]; had foot pain last night but not now d/w pt do not step on the L foot until cleared by podiatry h/o COPD asthma on 5 mg/d prednisone at baseline - had some wheezing this am pt said b/o "weather" it sometimes happens home and she takes 10 mg/d for few days and gets better; no SOB no cough sputum CP fever chills; had nebs earlier, now better - Current Medication List Current Medications: Active Medications Acetaminophen (Tylenol -) 650 mg PO Q6H PRN PRN Reason: FEVER Last Admin: 06/27/20 06:29 Dose: 650 mg Documented by: Albuterol Sulfate (Ventolin Hfa Inhaler -) 2 puff IH Q6H PRN PRN Reason: WHEEZING Albuterol/Ipratropium (Duoneb -) 1 amp NEB QID PRN PRN Reason: WHEEZING Last Admin: 06/29/20 09:31 Dose: 1 amp Documented by: Atorvastatin Calcium (Lipitor -) 20 mg PO HS [facility] Last Admin: 06/28/20 22:06 Dose: 20 mg Documented by: Budesonide (Pulmicort 0.25 Mg Nebulizer -) 1 amp NEB RBID [facility] Last Admin: 06/29/20 09:30 Dose: 1 amp Documented by: Bupropion HCl (Wellbutrin -) 100 mg PO DAILY [facility] Last Admin: 06/29/20 09:41 Dose: 100 mg Documented by: Clindamycin HCl (Cleocin -) 300 mg PO TID [facility] Last Admin: 06/29/20 06:17 Dose: 300 mg Documented by: Famotidine (Pepcid -) 40 mg PO DAILY [facility] Last Admin: 06/29/20 09:40 Dose: 40 mg Documented by: Heparin Sodium (Porcine) (Heparin -) 5,000 unit SQ BID [facility] Last Admin: 06/29/20 09:41 Dose: 5,000 unit Documented by: Levothyroxine Sodium (Synthroid -) 88 mcg PO DAILY@0700 [facility] Last Admin: 06/29/20 06:17 Dose: 88 mcg Documented by: Loratadine (Claritin -) 10 mg PO DAILY [facility] Last Admin: 06/29/20 09:40 Dose: 10 mg Documented by: Losartan Potassium (Cozaar -) 25 mg PO DAILY [facility] Last Admin: 06/29/20 09:41 Dose: 25 mg Documented by: Montelukast Sodium (Singulair -) 10 mg PO HS [facility] Last Admin: 06/28/20 22:06 Dose: 10 mg Documented by: Sima Ellipta 100/ (62.5/25 Mcg) 1 each IH DAILY [facility] Last Admin: 06/29/20 09:43 Dose: 1 each Documented by: Prednisone (Deltasone -) 5 mg PO DAILY [facility] Last Admin: 06/29/20 09:40 Dose: 5 mg Documented by: - Objective Vital Signs: Vital Signs Temperature 98.2 F 06/29/20 05:00 Pulse Rate 80 06/29/20 05:00 Respiratory Rate 18 06/28/20 21:00 Blood Pressure 133/81 06/29/20 05:00 O2 Sat by Pulse Oximetry (%) 94 L 06/29/20 05:00 Constitutional: Yes: No Distress Eyes: Yes: Conjunctiva Clear HENT: Yes: Atraumatic Neck: Yes: Supple Cardiovascular: Yes: Regular Rate and Rhythm Respiratory: Yes: Diminished Gastrointestinal: Yes: Soft. No: Tenderness Genitourinary: No: Hematuria Musculoskeletal: No: Joint Stiffness, Joint Swelling Extremities: No: Cold, Cool Edema: No Integumentary: No: Rash, Venous Stasis Changes Neurological: Yes: Alert, Oriented ...Motor Strength: WNL Psychiatric: Yes: Alert, Oriented. No: Agitated, Suicidal Ideation Labs: CBC, BMP 06/27/20 07:30 06/27/20 07:30 INR, PTT INR 1.16 (0.83-1.09) H 06/24/20 02:50 - ....Imaging Other: Report Reviewed Assessment/Plan 65F PMH HTN, HLD, COPD, Hypothyroid c/o 2 days fever and fatigue. s/p left foot surgery due to toe dislocation on 06/05/2020 with [address] still in place / pin removed per podiatry po ATB per ID; bacid and yogurt for CDiff pfx prednisone / COPD taper as tolerated; [place]; [place] f[place] - to be DC to SNF todau; DO NOT STEP on L foot until cleared by podiatry DVT pfx pain meds prn falls PFX dw pt do not get OOB alone d/w pt and staff
[2020-06-29 11:27] VITALS: BP 115/70; PULSE 84
== END 2020-06-29 12:02 | DRG 920 ==
LOC: JER 01:14 → JERBED 03:12 → J6S 06-25 00:28
PROVIDERS: ADMIT Internal Medicine; ATTEND Internal Medicine
PROC: 0YPBXYZ Removal of Other Device from Left Lower Extremity, External Approach (ICD-10-PCS; principal; 2020-06-28)
DX: T81.89XA Other complications of procedures, not elsewhere classified, initial encounter (principal); I50.32 Chronic diastolic (congestive) heart failure; J44.1 Chronic obstructive pulmonary disease with (acute) exacerbation; L03.032 Cellulitis of left toe; E03.9 Hypothyroidism, unspecified; I11.0 Hypertensive heart disease with heart failure; E78.5 Hyperlipidemia, unspecified; F17.210 Nicotine dependence, cigarettes, uncomplicated; Z88.0 Allergy status to penicillin; M25.512 Pain in left shoulder; Y83.8 Other surgical procedures as the cause of abnormal reaction of the patient, or of later complication, without mention of misadventure at the time of the procedure
CPT/HCPCS: 36415; 71045-TC-FY; 73030-TC-LT-FY; 73610-TC-LT-FY; 73630-TC-LT; 80053; 81003; 82550; 82607; 82728; 83540; 83605; 84484; 85025; 85610; 85651; 85730; 86140; 87040; 87077; 87086; 93005; 93010; 93971-TC; 94640; 99285-25; J0131; J1644; U0003

== ENCOUNTER 2020-12-23 12:53 | Emergency (ER) | payer OTHER ==
[2020-12-23 13:03] VITALS: BP 161/81; PULSE 108; TEMP 98.6; BMI 28.3
[2020-12-23 15:06] LABS: EPI CELLS 8 /uL (0-25.1); HYALINE CASTS 1 /uL (0-3.1); PH,URINE 6.5 (5.0-8.0); URINE APPEARANCE CLEAR; URINE BACTERIA 64 /uL (0-1359); URINE BILIRUBIN NEGATIVE (NEGATIVE); URINE COLOR YELLOW; URINE GLUCOSE (UA) NEGATIVE (NEGATIVE); URINE KETONE NEGATIVE (NEGATIVE); URINE LEUK ESTERASE NEGATIVE (NEGATIVE); URINE NITRITE NEGATIVE (NEGATIVE); URINE PROTEIN NEGATIVE (NEGATIVE); URINE RBC 47 /uL (0-23.9); URINE UROBILINOGEN 0.2 mg/dL (0.2-1.0); URINE WBC 8 /uL (0-25.8)
[2020-12-23] MEDS ORDERED: ACETAMINOPHEN 500 MG TABLET (FP) PO ONE (17:45)
[2020-12-23] MEDS ORDERED: ACETAMINOPHEN 325 MG TABLET (FP) ONE (17:47)
== END 2020-12-23 18:49 | disposition home or self-care (01) ==
LOC: JERFT 12:53
DX: M46.96 Unspecified inflammatory spondylopathy, lumbar region (principal)
CPT/HCPCS: 72131-TC; 72192-TC; 81003; 87086; 99285-25

== ENCOUNTER 2021-02-25 08:07 | Day surgery (SDC) | payer OTHER ==
[2021-02-19 13:18] VITALS: BMI 29.2
[2021-02-25] MEDS ORDERED: MIDAZOLAM HCL 2 MG/2 ML SINGLE DOSE VIAL ONE ×3 (10:19→11:12)
[2021-02-25] MEDS ORDERED: PROPOFOL 20 ML ONE (10:19)
[2021-02-25] MEDS ORDERED: TETRACAINE 0.5% OPHTH SOLN 2 ML BOTTLE ONE (10:24)
[2021-02-25] MEDS ORDERED: LIDOCAINE 1%/EPI 1:100000 (20 ML MULTI DOSE VIAL) ONE (10:24)
[2021-02-25] MEDS ORDERED: BACITRACIN 3.5 GM OPTHALMIC OINT TUBE ONE (10:24)
[2021-02-25] MEDS ORDERED: THROMBIN (RECOMBINANT) 5,000 UNIT VIAL TP ONE (10:25)
[2021-02-25] MEDS ORDERED: POVIDONE-IODINE 5% OPHTHALMIC PREP 30 ML SOLUTION ONE (10:26)
[2021-02-25] MEDS ORDERED: ONDANSETRON 4 MG/2 ML VIAL ONE (11:12)
[2021-02-25] MEDS ORDERED: ceFAZolin SODIUM 1 GM VIAL ONE (11:12)
[2021-02-25] MEDS ORDERED: DEXAMETHASONE SOD PHOSPHATE 4 MG/1 ML VIAL ONE (11:12)
[2021-02-25] MEDS ORDERED: KETOROLAC TROMETHAMINE 30 MG/1 ML VIAL ONE (11:12)
[2021-02-25] MEDS ORDERED: PROMETHAZINE HCL 25 MG/1 ML VIAL IVPUSH PRN (11:47)
[2021-02-25] MEDS ORDERED: ONDANSETRON 4 MG/2 ML VIAL IVPUSH PRN (11:47)
[2021-02-25] MEDS ORDERED: oxyCODONE HCL 5 MG TABLET PO PRN ×2 (11:47)
[2021-02-25 12:37] VITALS: TEMP 98.2
[2021-02-25 14:08] VITALS: BP 122/78; PULSE 76
== END 2021-02-25 13:15 | disposition home or self-care (01) ==
LOC: FASU 08:07
PROVIDERS: ATTEND Ophthalmology
PROC: 08SR0ZZ Reposition Left Lower Eyelid, Open Approach (ICD-10-PCS; principal; 2021-02-25 10:51)
DX: H02.005 Unspecified entropion of left lower eyelid (principal)
CPT/HCPCS: 94760

== ENCOUNTER 2021-07-31 04:54 | Day surgery (SDC) | payer OTHER ==
[2021-07-29 15:20] VITALS: BMI 28.7
[2021-07-31 09:40] VITALS: TEMP 97.8
[2021-07-31 10:21] VITALS: BP 134/76; PULSE 78
== END 2021-07-31 10:39 | disposition home or self-care (01) ==
LOC: JASU-ENDO 04:54
PROVIDERS: ATTEND Internal Medicine Gastroenterology
PROC: 0DBL8ZX Excision of Transverse Colon, Via Natural or Artificial Opening Endoscopic, Diagnostic (ICD-10-PCS; 2021-07-31)
PROC: 0DBN8ZX Excision of Sigmoid Colon, Via Natural or Artificial Opening Endoscopic, Diagnostic (ICD-10-PCS; 2021-07-31)
PROC: 0DB68ZX Excision of Stomach, Via Natural or Artificial Opening Endoscopic, Diagnostic (ICD-10-PCS; 2021-07-31)
PROC: 0DBK8ZX Excision of Ascending Colon, Via Natural or Artificial Opening Endoscopic, Diagnostic (ICD-10-PCS; principal; 2021-07-31 09:00)
DX: D50.9 Iron deficiency anemia, unspecified (principal); D12.2 Benign neoplasm of ascending colon; D12.5 Benign neoplasm of sigmoid colon; D12.3 Benign neoplasm of transverse colon; K57.30 Diverticulosis of large intestine without perforation or abscess without bleeding; K64.8 Other hemorrhoids; K29.50 Unspecified chronic gastritis without bleeding; K44.9 Diaphragmatic hernia without obstruction or gangrene
CPT/HCPCS: 88305-TC; 88342-TC

== ENCOUNTER 2021-09-21 15:51 | Observation (INO) | payer OTHER ==
[2021-09-21 16:25] VITALS: BMI 30.8
[2021-09-21 19:12] LABS: VENOUS BASE EXCESS 0.4 mmol/L (-2-2); VENOUS O2 SATURATION 63.5 % (70-80); VENOUS PCO2 41.1 mmHg (38-52); VENOUS PH 7.405 (7.310-7.410)
[2021-09-21 19:22] LABS: BASO % 0.4 % (0-2.0); HEMOGLOBIN 11.5 GM/dL (10.7-15.3); LYMPH % 16.4 % (8-40); MCH 25.3 pg (25.7-33.7); MCHC 32.9 g/dl (32.0-36.0); MEAN CELL VOLUME 76.7 fl (80-96); MEAN PLT VOLUME 7.4 fl (7.5-11.1); MONO % 4.9 % (3.8-10.2); NEUT % 77.3 % (42.8-82.8); PLATELET COUNT 333 10^3/uL (134-434); RBC 4.56 M/mm3 (3.60-5.2); RDW 17.2 % (11.6-15.6)
[2021-09-21 19:23] LABS: INR 1.03 (0.83-1.09); PROTHROMBIN TIME (PATIENT) 11.5 SEC (9.7-13.0)
[2021-09-21 19:26] LABS: ACTIVATED PTT 34.6 SECONDS (25.2-36.5)
[2021-09-21 19:39] LABS: CHLORIDE 107 mmol/L (98-107); SODIUM 139 mmol/L (136-145)
[2021-09-21 19:41] LABS: CALCIUM 8.6 mg/dL (8.5-10.1); GLUCOSE,RANDOM 111 mg/dL (74-106)
[2021-09-21 19:42] LABS: ALBUMIN 2.9 g/dl (3.4-5.0); ANION GAP 5 MMOL/L (8-16); BLOOD UREA NITROGEN 11.4 mg/dL (7-18); CO2 28 mmol/L (21-32)
[2021-09-21 19:45] LABS: CREATININE 0.8 mg/dL (0.55-1.3); SGOT/AST 47 U/L (15-37); SGPT/ALT 30 U/L (13-61)
[2021-09-21 19:46] LABS: BILIRUBIN,TOTAL 0.4 mg/dL (0.2-1); TOT PROT 7.1 g/dl (6.4-8.2)
[2021-09-21 19:48] LABS: ALK PHOS 65 U/L (45-117)
[2021-09-21 21:04] LABS: MAGNESIUM 2.4 mg/dL (1.8-2.4)
[2021-09-21 21:08] LABS: PHOSPHOROUS 4.7 mg/dL (2.5-4.9)
[2021-09-21] MEDS ORDERED: ACETAMINOPHEN 325 MG TABLET (FP) PO PRN (21:36)
[2021-09-21] MEDS ORDERED: ALBUTEROL SO4 HFA INHALER IH PRN (21:36)
[2021-09-21] MEDS ORDERED: PATIENT'S OWN MEDICATION (NON-FORMULARY) (Cyclosporine [Restasis] 1 EACH Droperette) OP SCH (22:00)
[2021-09-21 22:40] LABS: CALCIUM 8.5 mg/dL (8.5-10.1)
[2021-09-21 22:41] LABS: ALBUMIN 2.9 g/dl (3.4-5.0); BLOOD UREA NITROGEN 10.6 mg/dL (7-18)
[2021-09-21 22:44] LABS: CREATININE 0.8 mg/dL (0.55-1.3)
[2021-09-21 22:46] LABS: TOT PROT 7.1 g/dl (6.4-8.2)
[2021-09-21 22:49] LABS: BILIRUBIN,TOTAL 0.3 mg/dL (0.2-1)
[2021-09-21] MEDS ORDERED: MONTELUKAST NA 10 MG TABLET ONE (23:24)
[2021-09-21] MEDS ORDERED: ATORVASTATIN CA 20 MG TABLET (FP) ONE (23:24)
[2021-09-21] MEDS ORDERED: HEPARIN NA (PORCINE) 5,000 UNITS/ML 1ML VIAL ONE (23:25)
[2021-09-21] MEDS ORDERED: methylPREDNISolone NA SUCC 40 MG/1 ML VIAL ONE (23:25)
[2021-09-21] MEDS: HEPARIN NA (PORCINE) 5,000 UNITS/ML 1ML VIAL SQ SCH (23:35)
[2021-09-21] MEDS: ATORVASTATIN CA 20 MG TABLET (FP) PO SCH (23:36)
[2021-09-21] MEDS: HYDROXYCHLOROQUINE SO4 200 MG TABLET (FP) PO SCH (23:36)
[2021-09-21] MEDS: BUDESONIDE/FORMETEROL FUMARATE 160/4.5 mcg INHALER IH SCH (23:37)
[2021-09-21] MEDS: methylPREDNISolone NA SUCC 40 MG/1 ML VIAL IVPUSH SCH (23:37)
[2021-09-21] MEDS: MONTELUKAST NA 10 MG TABLET PO SCH (23:37)
[2021-09-22] MEDS ORDERED: methylPREDNISolone NA SUCC 40 MG/1 ML VIAL ONE (06:06)
[2021-09-22] MEDS: methylPREDNISolone NA SUCC 40 MG/1 ML VIAL IVPUSH SCH ×2 (06:15→15:04)
[2021-09-22] MEDS ORDERED: LEVOTHYROXINE NA 112 MCG TABLET (FP) PO SCH (07:00)
[2021-09-22] MEDS ORDERED: FAMOTIDINE 20 MG TABLET ONE (09:13)
[2021-09-22] MEDS ORDERED: LORATADINE 10 MG TABLET ONE (09:14)
[2021-09-22] MEDS ORDERED: CHOLECALCIFEROL (VIT D3) 1,000 UNIT (25 MCG) TABLET ONE (09:14)
[2021-09-22] MEDS ORDERED: buPROPion HCL 100 MG TABLET ONE (09:14)
[2021-09-22] MEDS ORDERED: HEPARIN NA (PORCINE) 5,000 UNITS/ML 1ML VIAL ONE (09:14)
[2021-09-22] MEDS: HEPARIN NA (PORCINE) 5,000 UNITS/ML 1ML VIAL SQ SCH ×2 (09:24→22:22)
[2021-09-22] MEDS: buPROPion HCL 100 MG TABLET PO SCH (09:25)
[2021-09-22] MEDS: FAMOTIDINE 40 MG TABLET PO SCH (09:25)
[2021-09-22] MEDS: LORATADINE 10 MG TABLET PO SCH (09:25)
[2021-09-22] MEDS: CHOLECALCIFEROL (VIT D3) 1,000 UNIT (25 MCG) TABLET PO SCH (09:25)
[2021-09-22] MEDS: HYDROXYCHLOROQUINE SO4 200 MG TABLET (FP) PO SCH ×2 (09:46→22:23)
[2021-09-22] MEDS: LACTOBACILLUS ACIDOPHILUS 1 TABLET PO SCH (09:46)
[2021-09-22] MEDS: BUDESONIDE/FORMETEROL FUMARATE 160/4.5 mcg INHALER IH SCH ×2 (09:46→22:21)
[2021-09-22 12:50] LABS: HEMATOCRIT 35.8 % (32.4-45.2); HEMOGLOBIN 11.7 GM/dL (10.7-15.3); MCH 25.5 pg (25.7-33.7); MCHC 32.8 g/dl (32.0-36.0); MEAN CELL VOLUME 77.9 fl (80-96); MEAN PLT VOLUME 7.8 fl (7.5-11.1); PLATELET COUNT 346 10^3/uL (134-434); RDW 17.5 % (11.6-15.6); WHITE BLOOD COUNT 12.1 K/mm3 (4.0-10.0)
[2021-09-22 13:25] LABS: CHLORIDE 108 mmol/L (98-107); SODIUM 141 mmol/L (136-145)
[2021-09-22 13:27] LABS: CALCIUM 8.9 mg/dL (8.5-10.1)
[2021-09-22 13:28] LABS: ANION GAP 8 MMOL/L (8-16); BLOOD UREA NITROGEN 13.2 mg/dL (7-18); CO2 26 mmol/L (21-32); GLUCOSE,RANDOM 125 mg/dL (74-106)
[2021-09-22 13:31] LABS: CREATININE 0.8 mg/dL (0.55-1.3); SGOT/AST 18 U/L (15-37); SGPT/ALT 26 U/L (13-61)
[2021-09-22 13:33] LABS: BILIRUBIN,TOTAL 0.2 mg/dL (0.2-1); TOT PROT 7.3 g/dl (6.4-8.2)
[2021-09-22 13:34] LABS: ALK PHOS 65 U/L (45-117)
[2021-09-22 13:36] LABS: N-TERMINAL BNP 71.5 pg/ml (5-125)
[2021-09-22 15:16] LABS: ANISOCYTOSIS 2+; MACROCYTOSIS 0; PLATELET ESTIMATE NORMAL
[2021-09-22] MEDS ORDERED: PT OWN MED DRAWER 7, Y5N ONE (21:45)
[2021-09-22] MEDS: ATORVASTATIN CA 20 MG TABLET (FP) PO SCH (22:22)
[2021-09-22] MEDS: MONTELUKAST NA 10 MG TABLET PO SCH (22:22)
[2021-09-22] MEDS: guaiFENesin 200 MG/10 ML 10 ML UNIT-DOSE CUPS PO PRN (22:56)
[2021-09-23] MEDS: LEVOTHYROXINE NA 125 MCG TABLET (FP) PO SCH (07:04)
[2021-09-23 08:31] LABS: CHOLESTEROL 162 mg/dL (50-200); TRIGLYCERIDES 98 mg/dL (0-150)
[2021-09-23 08:32] LABS: LDL CHOLESTEROL (ONLY SJRH) 74 mg/dL (5-100)
[2021-09-23 08:35] LABS: HDL CHOLESTEROL 74 mg/dL (40-60)
[2021-09-23] MEDS ORDERED: PT OWN MED DRAWER 7, Y5N ONE (09:14)
[2021-09-23] MEDS: FAMOTIDINE 40 MG TABLET PO SCH (09:26)
[2021-09-23] MEDS: LORATADINE 10 MG TABLET PO SCH (09:26)
[2021-09-23] MEDS: CHOLECALCIFEROL (VIT D3) 1,000 UNIT (25 MCG) TABLET PO SCH (09:26)
[2021-09-23] MEDS: predniSONE 5 MG TABLET (UD) PO SCH (09:27)
[2021-09-23] MEDS: LACTOBACILLUS ACIDOPHILUS 1 TABLET PO SCH (09:27)
[2021-09-23] MEDS: HEPARIN NA (PORCINE) 5,000 UNITS/ML 1ML VIAL SQ SCH ×2 (09:27→22:16)
[2021-09-23] MEDS: HYDROXYCHLOROQUINE SO4 200 MG TABLET (FP) PO SCH ×2 (09:27→22:16)
[2021-09-23] MEDS: BUDESONIDE/FORMETEROL FUMARATE 160/4.5 mcg INHALER IH SCH ×2 (09:31→22:17)
[2021-09-23] MEDS: buPROPion HCL 100 MG TABLET PO SCH (12:26)
[2021-09-23] MEDS: ACETAMINOPHEN 325 MG TABLET (FP) PO PRN ×2 (13:30→22:14)
[2021-09-23] MEDS: ALBUTEROL SO4 0.083% IH SOL 2.5 MG/3 ML VIAL.NEB. NEB PRN ×2 (14:46→20:46)
[2021-09-23] MEDS: MONTELUKAST NA 10 MG TABLET PO SCH (22:15)
[2021-09-23] MEDS: ATORVASTATIN CA 20 MG TABLET (FP) PO SCH (22:15)
[2021-09-23] MEDS: guaiFENesin 200 MG/10 ML 10 ML UNIT-DOSE CUPS PO PRN (22:17)
[2021-09-24] MEDS ORDERED: LORazepam 0.5 MG TABLET PO ONE (02:30)
[2021-09-24] MEDS: ACETAMINOPHEN 325 MG TABLET (FP) PO PRN (06:26)
[2021-09-24] MEDS: LEVOTHYROXINE NA 125 MCG TABLET (FP) PO SCH (06:26)
[2021-09-24] MEDS: ALBUTEROL SO4 0.083% IH SOL 2.5 MG/3 ML VIAL.NEB. NEB PRN ×2 (06:29→20:04)
[2021-09-24] MEDS ORDERED: PT OWN MED DRAWER 7, Y5N ONE (12:03)
[2021-09-24] MEDS: LACTOBACILLUS ACIDOPHILUS 1 TABLET PO SCH (12:04)
[2021-09-24] MEDS: predniSONE 5 MG TABLET (UD) PO SCH (12:04)
[2021-09-24] MEDS: HEPARIN NA (PORCINE) 5,000 UNITS/ML 1ML VIAL SQ SCH ×2 (12:04→21:30)
[2021-09-24] MEDS: LORATADINE 10 MG TABLET PO SCH (12:04)
[2021-09-24] MEDS: CHOLECALCIFEROL (VIT D3) 1,000 UNIT (25 MCG) TABLET PO SCH (12:05)
[2021-09-24] MEDS: buPROPion HCL 100 MG TABLET PO SCH (13:21)
[2021-09-24] MEDS: FAMOTIDINE 40 MG TABLET PO SCH (13:21)
[2021-09-24] MEDS: BUDESONIDE/FORMETEROL FUMARATE 160/4.5 mcg INHALER IH SCH ×2 (13:21→23:02)
[2021-09-24] MEDS: HYDROXYCHLOROQUINE SO4 200 MG TABLET (FP) PO SCH ×2 (13:21→22:59)
[2021-09-24] MEDS: MONTELUKAST NA 10 MG TABLET PO SCH (21:30)
[2021-09-24] MEDS: ATORVASTATIN CA 20 MG TABLET (FP) PO SCH (21:30)
[2021-09-24] MEDS: guaiFENesin 200 MG/10 ML 10 ML UNIT-DOSE CUPS PO PRN (21:31)
[2021-09-25] MEDS: LEVOTHYROXINE NA 125 MCG TABLET (FP) PO SCH (06:09)
[2021-09-25] MEDS ORDERED: PT OWN MED DRAWER 7, Y5N ONE (09:38)
[2021-09-25] MEDS ORDERED: CLOPIDOGREL BISULFATE 75 MG TABLET (FP) PO SCH (10:30)
[2021-09-25] MEDS ORDERED: ASPIRIN 81 MG CHEWABLE TABLETS PO SCH (10:30)
[2021-09-25] MEDS: LACTOBACILLUS ACIDOPHILUS 1 TABLET PO SCH (11:29)
[2021-09-25] MEDS: predniSONE 5 MG TABLET (UD) PO SCH (11:29)
[2021-09-25] MEDS: LORATADINE 10 MG TABLET PO SCH (11:29)
[2021-09-25] MEDS: HEPARIN NA (PORCINE) 5,000 UNITS/ML 1ML VIAL SQ SCH (11:30)
[2021-09-25] MEDS: CHOLECALCIFEROL (VIT D3) 1,000 UNIT (25 MCG) TABLET PO SCH (11:30)
[2021-09-25] MEDS: HYDROXYCHLOROQUINE SO4 200 MG TABLET (FP) PO SCH (11:30)
[2021-09-25] MEDS: FAMOTIDINE 40 MG TABLET PO SCH (11:30)
[2021-09-25] MEDS: buPROPion HCL 100 MG TABLET PO SCH (11:30)
[2021-09-25] MEDS: ALBUTEROL SO4 0.083% IH SOL 2.5 MG/3 ML VIAL.NEB. NEB PRN (11:49)
[2021-09-25 12:08] VITALS: BP 150/92; PULSE 88; TEMP 98
[2021-09-25] MEDS: BUDESONIDE/FORMETEROL FUMARATE 160/4.5 mcg INHALER IH SCH (12:11)
== END 2021-09-25 12:26 | disposition short-term general hospital (02) ==
LOC: JER 15:51 → JERBED 21:02 → UNDOADMOB 21:02 → INTOOBSV 21:02 → JERBED 09-22 11:38 → J4W 09-22 11:38 → JERBED 09-22 15:11 → J4W 09-24 01:12
PROVIDERS: ADMIT Internal Medicine; ATTEND Internal Medicine
PROC: 3E0F7GC Introduction of Other Therapeutic Substance into Respiratory Tract, Via Natural or Artificial Opening (ICD-10-PCS; principal; 2021-09-22)
DX: R00.8 Other abnormalities of heart beat (principal); I10 Essential (primary) hypertension; E78.5 Hyperlipidemia, unspecified; J44.9 Chronic obstructive pulmonary disease, unspecified; K21.9 Gastro-esophageal reflux disease without esophagitis; R06.02 Shortness of breath; R06.00 Dyspnea, unspecified; Z88.8 Allergy status to other drugs, medicaments and biological substances; Z88.0 Allergy status to penicillin; E66.8 Other obesity; A04.8 Other specified bacterial intestinal infections; Z68.30 Body mass index [BMI] 30.0-30.9, adult; E03.9 Hypothyroidism, unspecified; Z87.891 Personal history of nicotine dependence
CPT/HCPCS: 36415; 71045-TC-FY; 71275-TC; 80053; 80061; 81003; 82550; 82553; 82803; 82962; 83735; 83880; 84100; 84439; 84443; 84481; 84484; 85025; 85379; 85610; 85730; 86850; 86900; 86901; 87086; 87804; 93005; 93010; 93306-TC; 94640; 99285-25; C9803; G0378; J1644; U0003; U0005

== ENCOUNTER 2022-03-09 07:42 | Day surgery (SDC) | payer OTHER ==
[2022-03-09] MEDS ORDERED: IRON SUCROSE INJECTION 200 MG in SODIUM CHLORIDE 100 ML IVPB ONE (10:00)
[2022-03-09 12:16] VITALS: TEMP 98.6
[2022-03-09 12:20] VITALS: BP 120/84; PULSE 87
== END 2022-03-09 12:05 | disposition home or self-care (01) ==
LOC: JONCNONCHE 07:42
PROVIDERS: ATTEND Internal Medicine Hematology & Oncology
PROC: 3E033GC Introduction of Other Therapeutic Substance into Peripheral Vein, Percutaneous Approach (ICD-10-PCS; principal; 2022-03-09)
DX: E61.1 Iron deficiency (principal)
CPT/HCPCS: 96365; J1756

== ENCOUNTER 2022-03-16 07:10 | Day surgery (SDC) | payer OTHER ==
[2022-03-16] MEDS ORDERED: IRON SUCROSE INJECTION 200 MG in SODIUM CHLORIDE 100 ML IVPB ONE (10:00)
[2022-03-16 16:36] VITALS: TEMP 98.9
[2022-03-17 07:47] VITALS: BP 137/82; PULSE 79
== END 2022-03-16 11:20 | disposition home or self-care (01) ==
LOC: JONCNONCHE 07:10
PROVIDERS: ATTEND Internal Medicine Hematology & Oncology
PROC: 3E033GC Introduction of Other Therapeutic Substance into Peripheral Vein, Percutaneous Approach (ICD-10-PCS; principal; 2022-03-16)
DX: D50.9 Iron deficiency anemia, unspecified (principal)
CPT/HCPCS: 96365; J1756

== ENCOUNTER 2022-03-25 07:15 | Day surgery (SDC) | payer OTHER ==
[2022-03-25] MEDS ORDERED: IRON SUCROSE INJECTION 200 MG in SODIUM CHLORIDE 100 ML IVPB ONE (10:00)
[2022-03-25 16:12] VITALS: TEMP 98.8
[2022-03-25 16:17] VITALS: BP 123/67; PULSE 75
== END 2022-03-25 12:00 | disposition home or self-care (01) ==
LOC: JONCNONCHE 07:15
PROVIDERS: ATTEND Internal Medicine Hematology & Oncology
PROC: 3E033GC Introduction of Other Therapeutic Substance into Peripheral Vein, Percutaneous Approach (ICD-10-PCS; principal; 2022-03-25)
DX: D50.9 Iron deficiency anemia, unspecified (principal)
CPT/HCPCS: 96365; J1756

== ENCOUNTER 2022-03-31 06:45 | Day surgery (SDC) | payer OTHER ==
[2022-03-31] MEDS ORDERED: IRON SUCROSE INJECTION 200 MG in SODIUM CHLORIDE 100 ML IVPB ONE (10:00)
[2022-03-31 17:47] VITALS: TEMP 98.2
[2022-03-31 17:48] VITALS: BP 104/67; PULSE 80
== END 2022-03-31 11:20 | disposition home or self-care (01) ==
LOC: JONCNONCHE 06:45
PROVIDERS: ATTEND Internal Medicine Hematology & Oncology
PROC: 3E033GC Introduction of Other Therapeutic Substance into Peripheral Vein, Percutaneous Approach (ICD-10-PCS; principal; 2022-03-31)
DX: D50.9 Iron deficiency anemia, unspecified (principal)
CPT/HCPCS: 96365; J1756

== ENCOUNTER 2022-08-24 05:30 | Day surgery (SDC) | payer OTHER ==
[2022-08-21 15:39] VITALS: BMI 29.5
[2022-08-24 08:45] VITALS: RESP 18
[2022-08-24] MEDS ORDERED: MIDAZOLAM HCL 2 MG/2 ML SINGLE DOSE VIAL ONE (09:47)
[2022-08-24] MEDS ORDERED: FENTANYL CITRATE/PF 50 MCG/ML VIAL ONE ×2 (09:47→10:03)
[2022-08-24] MEDS ORDERED: SODIUM CHLORIDE 0.9% P/F 10 ML VIAL IJ ONE (09:55)
[2022-08-24] MEDS ORDERED: LIDOCAINE HCL 1% PRESERVATIVE FREE - 30ML VIAL IJ ONE (10:08)
[2022-08-24] MEDS ORDERED: IOHEXOL 180 MG/1 ML ML IJ ONE (10:10)
[2022-08-24] MEDS ORDERED: DEXAMETHASONE SOD PHOSPHATE 10 MG/1 ML VIAL IVPUSH ONE (10:12)
[2022-08-24] MEDS ORDERED: LIDOCAINE HCL/PF 1% SDV 5ML VIAL ONE (10:20)
[2022-08-24] MEDS ORDERED: DEXAMETHASONE SOD PHOSPHATE 10 MG/1 ML VIAL ONE (10:20)
[2022-08-24 12:34] VITALS: BP 124/70; PULSE 89; TEMP 98.8
== END 2022-08-24 11:55 | disposition home or self-care (01) ==
LOC: JASU-SURG 05:30
PROVIDERS: ATTEND Physical Medicine & Rehabilitation
PROC: 3E0R33Z Introduction of Anti-inflammatory into Spinal Canal, Percutaneous Approach (ICD-10-PCS; 2022-08-24)
PROC: 3E0R3BZ Introduction of Anesthetic Agent into Spinal Canal, Percutaneous Approach (ICD-10-PCS; principal; 2022-08-24 10:00)
DX: M54.12 Radiculopathy, cervical region (principal)
CPT/HCPCS: 76000-TC-FY; J1100

== ENCOUNTER 2022-09-15 10:54 | Inpatient (IN) | payer OTHER ==
[2022-09-15 11:26] VITALS: BMI 29.2
[2022-09-15] MEDS ORDERED: ALBUTEROL SO4 2.5/IPRATROPIUM 0.5 INH SOL 3 ML VIAL.NEB. NEB ONE ×2 (11:36→12:11)
[2022-09-15 11:58] LABS: BASO % 0.5 % (0-2.0); EOS % 2.2 % (0-4.5); HEMATOCRIT 37.7 % (32.4-45.2); HEMOGLOBIN 11.9 GM/dL (10.7-15.3); LYMPH % 14.3 % (8-40); MCH 24.9 pg (25.7-33.7); MCHC 31.7 g/dl (32.0-36.0); MEAN CELL VOLUME 78.6 fl (80-96); MEAN PLT VOLUME 7.3 fl (7.5-11.1); PLATELET COUNT 357 10^3/uL (134-434); RDW 15.9 % (11.6-15.6); VENOUS BASE EXCESS 2.5 mmol/L (-2-2); VENOUS PCO2 45.9 mmHg (38-52); VENOUS PH 7.401 (7.310-7.410); WHITE BLOOD COUNT 13.2 K/mm3 (4.0-10.0)
[2022-09-15 12:25] LABS: ALBUMIN 3.4 g/dl (3.4-5.0); BLOOD UREA NITROGEN 13.1 mg/dL (7-18); CALCIUM 8.8 mg/dL (8.5-10.1)
[2022-09-15 12:28] LABS: CREATININE 0.8 mg/dL (0.55-1.3)
[2022-09-15 12:30] LABS: BILIRUBIN,TOTAL 0.3 mg/dL (0.2-1); TOT PROT 7.1 g/dl (6.4-8.2)
[2022-09-15 13:49] LABS: EPI CELLS 10 /uL (0-25.1); HYALINE CASTS 1 /uL (0-3.1); URINE APPEARANCE CLEAR; URINE BACTERIA 14 /uL (0-1359); URINE BILIRUBIN NEGATIVE (NEGATIVE); URINE COLOR YELLOW; URINE GLUCOSE (UA) NEGATIVE (NEGATIVE); URINE KETONE NEGATIVE (NEGATIVE); URINE LEUK ESTERASE NEGATIVE (NEGATIVE); URINE NITRITE NEGATIVE (NEGATIVE); URINE PROTEIN NEGATIVE (NEGATIVE); URINE RBC 15 /uL (0-23.9); URINE UROBILINOGEN 0.2 mg/dL (0.2-1.0); URINE WBC 7 /uL (0-25.8)
[2022-09-15] MEDS ORDERED: ALBUTEROL SO4 HFA INHALER IH PRN (14:30)
[2022-09-15] MEDS ORDERED: methylPREDNISolone NA SUCC 40 MG/1 ML VIAL ONE (14:48)
[2022-09-15] MEDS ORDERED: ALBUTEROL SO4 HFA INHALER IH ONE (14:54)
[2022-09-15] MEDS ORDERED: ALBUTEROL SO4 0.083% IH SOL 2.5 MG/3 ML VIAL.NEB. NEB ONE (14:54)
[2022-09-15] MEDS: ALBUTEROL SO4 0.083% IH SOL 2.5 MG/3 ML VIAL.NEB. NEB PRN ×2 (14:54→20:15)
[2022-09-15] MEDS ORDERED: methylPREDNISolone NA SUCC 40 MG/1 ML VIAL IVPUSH SCH (15:00)
[2022-09-15] MEDS: HEPARIN NA (PORCINE) 5,000 UNITS/ML 1ML VIAL SQ SCH (22:25)
[2022-09-15] MEDS: HYDROXYCHLOROQUINE SO4 200 MG TABLET (FP) PO SCH (22:25)
[2022-09-15] MEDS: MONTELUKAST NA 10 MG TABLET PO SCH (22:25)
[2022-09-15] MEDS: methylPREDNISolone NA SUCC 40 MG/1 ML VIAL IVPUSH SCH (22:25)
[2022-09-15] MEDS: ATORVASTATIN CA 20 MG TABLET (FP) PO SCH (22:25)
[2022-09-15] MEDS: BUDESONIDE/FORMETEROL FUMARATE 160/4.5 mcg INHALER IH SCH (22:26)
[2022-09-16] MEDS: methylPREDNISolone NA SUCC 40 MG/1 ML VIAL IVPUSH SCH ×4 (02:03→21:47)
[2022-09-16] MEDS: LEVOTHYROXINE NA 125 MCG TABLET (FP) PO SCH (06:03)
[2022-09-16] MEDS: HEPARIN NA (PORCINE) 5,000 UNITS/ML 1ML VIAL SQ SCH ×2 (09:33→21:47)
[2022-09-16] MEDS: LACTOBACILLUS ACIDOPHILUS 1 TABLET PO SCH (09:33)
[2022-09-16] MEDS: LORATADINE 10 MG TABLET PO SCH (09:33)
[2022-09-16] MEDS: HYDROXYCHLOROQUINE SO4 200 MG TABLET (FP) PO SCH ×2 (09:34→22:20)
[2022-09-16] MEDS: BUDESONIDE/FORMETEROL FUMARATE 160/4.5 mcg INHALER IH SCH ×2 (09:35→22:20)
[2022-09-16] MEDS ORDERED: FAMOTIDINE 20 MG TABLET PO SCH (10:00)
[2022-09-16 10:17] LABS: BASO % 0.2 % (0-2.0); EOS % 0.1 % (0-4.5); HEMATOCRIT 38.2 % (32.4-45.2); HEMOGLOBIN 11.9 GM/dL (10.7-15.3); LYMPH % 11.1 % (8-40); MCH 24.7 pg (25.7-33.7); MCHC 31.3 g/dl (32.0-36.0); MEAN CELL VOLUME 79.1 fl (80-96); MEAN PLT VOLUME 7.8 fl (7.5-11.1); MONO % 2.8 % (3.8-10.2); NEUT % 85.8 % (42.8-82.8); PLATELET COUNT 381 10^3/uL (134-434); RBC 4.83 M/mm3 (3.60-5.2); RDW 15.9 % (11.6-15.6); WHITE BLOOD COUNT 18.2 K/mm3 (4.0-10.0)
[2022-09-16 10:35] LABS: ALBUMIN 3.4 g/dl (3.4-5.0); BLOOD UREA NITROGEN 16.6 mg/dL (7-18); CALCIUM 9.2 mg/dL (8.5-10.1)
[2022-09-16 10:38] LABS: CREATININE 0.8 mg/dL (0.55-1.3)
[2022-09-16 10:40] LABS: BILIRUBIN,TOTAL 0.3 mg/dL (0.2-1); TOT PROT 7.5 g/dl (6.4-8.2)
[2022-09-16] MEDS: ALBUTEROL SO4 0.083% IH SOL 2.5 MG/3 ML VIAL.NEB. NEB PRN ×3 (10:53→22:22)
[2022-09-16] MEDS ORDERED: MAG HYDROX/AL HYDROX/SIMETH 30 ML UNIT-DOSE CUP PO PRN (13:57)
[2022-09-16] MEDS: buPROPion HCL 100 MG TABLET PO SCH (14:34)
[2022-09-16] MEDS: PANTOPRAZOLE 40 MG TABLET PO SCH (14:34)
[2022-09-16] MEDS: PATIENT'S OWN MEDICATION (NON-FORMULARY) (Cyclosporine [Restasis] 1 EACH Droperette) OP SCH (17:33)
[2022-09-16] MEDS: ATORVASTATIN CA 20 MG TABLET (FP) PO SCH (21:47)
[2022-09-16] MEDS: MONTELUKAST NA 10 MG TABLET PO SCH (21:47)
[2022-09-17] MEDS: methylPREDNISolone NA SUCC 40 MG/1 ML VIAL IVPUSH SCH ×4 (02:46→21:33)
[2022-09-17] MEDS: ALBUTEROL SO4 0.083% IH SOL 2.5 MG/3 ML VIAL.NEB. NEB PRN ×3 (03:53→11:18)
[2022-09-17] MEDS: LEVOTHYROXINE NA 125 MCG TABLET (FP) PO SCH (06:02)
[2022-09-17] MEDS: LORATADINE 10 MG TABLET PO SCH (11:03)
[2022-09-17] MEDS: buPROPion HCL 100 MG TABLET PO SCH (11:03)
[2022-09-17] MEDS: PANTOPRAZOLE 40 MG TABLET PO SCH (11:03)
[2022-09-17] MEDS: HEPARIN NA (PORCINE) 5,000 UNITS/ML 1ML VIAL SQ SCH ×2 (11:03→21:33)
[2022-09-17] MEDS: LACTOBACILLUS ACIDOPHILUS 1 TABLET PO SCH (11:03)
[2022-09-17] MEDS: HYDROXYCHLOROQUINE SO4 200 MG TABLET (FP) PO SCH ×2 (11:04→21:40)
[2022-09-17] MEDS: BUDESONIDE/FORMETEROL FUMARATE 160/4.5 mcg INHALER IH SCH ×2 (11:05→21:39)
[2022-09-17] MEDS ORDERED: AZITHROMYCIN 250 MG TABLET PO ONE (11:38)
[2022-09-17] MEDS: ALBUTEROL SO4 2.5/IPRATROPIUM 0.5 INH SOL 3 ML VIAL.NEB. NEB SCH ×3 (11:50→20:24)
[2022-09-17] MEDS ORDERED: AZITHROMYCIN IVPB 500 MG in DEXTROSE 5%-WATER - 250 ML IVPB SCH (12:00)
[2022-09-17] MEDS: NYSTATIN 500,000 UNITS/5 ML SUSPENSION PO SCH ×3 (12:00→23:36)
[2022-09-17] MEDS ORDERED: AZITHROMYCIN IVPB 500 MG/250 ML BAG IVPB SCH (12:21)
[2022-09-17] MEDS: AZITHROMYCIN IVPB 500 MG/250 ML BAG IVPB SCH (14:22)
[2022-09-17] MEDS: ATORVASTATIN CA 20 MG TABLET (FP) PO SCH (21:33)
[2022-09-17] MEDS: MONTELUKAST NA 10 MG TABLET PO SCH (21:34)
[2022-09-18] MEDS: methylPREDNISolone NA SUCC 40 MG/1 ML VIAL IVPUSH SCH ×4 (03:07→21:39)
[2022-09-18] MEDS: LEVOTHYROXINE NA 125 MCG TABLET (FP) PO SCH (06:13)
[2022-09-18] MEDS: NYSTATIN 500,000 UNITS/5 ML SUSPENSION PO SCH ×4 (06:13→23:51)
[2022-09-18] MEDS: ALBUTEROL SO4 2.5/IPRATROPIUM 0.5 INH SOL 3 ML VIAL.NEB. NEB SCH ×4 (07:32→19:20)
[2022-09-18] MEDS: LACTOBACILLUS ACIDOPHILUS 1 TABLET PO SCH (09:49)
[2022-09-18] MEDS: PANTOPRAZOLE 40 MG TABLET PO SCH (09:49)
[2022-09-18] MEDS: LORATADINE 10 MG TABLET PO SCH (09:49)
[2022-09-18] MEDS: HEPARIN NA (PORCINE) 5,000 UNITS/ML 1ML VIAL SQ SCH ×2 (09:49→21:39)
[2022-09-18] MEDS: HYDROXYCHLOROQUINE SO4 200 MG TABLET (FP) PO SCH ×2 (09:50→21:39)
[2022-09-18] MEDS: BUDESONIDE/FORMETEROL FUMARATE 160/4.5 mcg INHALER IH SCH ×2 (09:52→21:39)
[2022-09-18] MEDS: AZITHROMYCIN IVPB 500 MG/250 ML BAG IVPB SCH (09:52)
[2022-09-18] MEDS: buPROPion HCL 100 MG TABLET PO SCH (09:53)
[2022-09-18] MEDS ORDERED: AZITHROMYCIN 250 MG TABLET PO SCH (10:00)
[2022-09-18 10:56] LABS: HEMATOCRIT 36.8 % (32.4-45.2); HEMOGLOBIN 11.5 GM/dL (10.7-15.3); MCH 24.7 pg (25.7-33.7); MCHC 31.3 g/dl (32.0-36.0); MEAN CELL VOLUME 78.9 fl (80-96); MEAN PLT VOLUME 8.4 fl (7.5-11.1); PLATELET COUNT 351 10^3/uL (134-434); RBC 4.66 M/mm3 (3.60-5.2); RDW 15.8 % (11.6-15.6); WHITE BLOOD COUNT 20.4 K/mm3 (4.0-10.0)
[2022-09-18 11:40] LABS: CALCIUM 8.9 mg/dL (8.5-10.1)
[2022-09-18 11:41] LABS: ALBUMIN 3.3 g/dl (3.4-5.0)
[2022-09-18 11:44] LABS: CREATININE 0.8 mg/dL (0.55-1.3)
[2022-09-18 11:46] LABS: TOT PROT 7.2 g/dl (6.4-8.2)
[2022-09-18 11:47] LABS: BILIRUBIN,TOTAL 0.5 mg/dL (0.2-1)
[2022-09-18 13:35] LABS: ANISOCYTOSIS 1+; MACROCYTOSIS 0
[2022-09-18] MEDS: MONTELUKAST NA 10 MG TABLET PO SCH (21:39)
[2022-09-18] MEDS: ATORVASTATIN CA 20 MG TABLET (FP) PO SCH (21:39)
[2022-09-19] MEDS: methylPREDNISolone NA SUCC 40 MG/1 ML VIAL IVPUSH SCH ×4 (02:56→22:23)
[2022-09-19] MEDS: LEVOTHYROXINE NA 125 MCG TABLET (FP) PO SCH (06:09)
[2022-09-19] MEDS: NYSTATIN 500,000 UNITS/5 ML SUSPENSION PO SCH ×4 (06:09→23:46)
[2022-09-19] MEDS: ALBUTEROL SO4 0.083% IH SOL 2.5 MG/3 ML VIAL.NEB. NEB PRN (06:41)
[2022-09-19] MEDS: ALBUTEROL SO4 2.5/IPRATROPIUM 0.5 INH SOL 3 ML VIAL.NEB. NEB SCH ×4 (08:20→20:10)
[2022-09-19] MEDS: HEPARIN NA (PORCINE) 5,000 UNITS/ML 1ML VIAL SQ SCH ×2 (10:34→22:17)
[2022-09-19] MEDS: PANTOPRAZOLE 40 MG TABLET PO SCH (10:34)
[2022-09-19] MEDS: buPROPion HCL 100 MG TABLET PO SCH (10:34)
[2022-09-19] MEDS: LACTOBACILLUS ACIDOPHILUS 1 TABLET PO SCH (10:35)
[2022-09-19] MEDS: AZITHROMYCIN IVPB 500 MG/250 ML BAG IVPB SCH (10:35)
[2022-09-19] MEDS: HYDROXYCHLOROQUINE SO4 200 MG TABLET (FP) PO SCH ×2 (10:35→22:17)
[2022-09-19] MEDS: LORATADINE 10 MG TABLET PO SCH (10:36)
[2022-09-19] MEDS: BUDESONIDE/FORMETEROL FUMARATE 160/4.5 mcg INHALER IH SCH ×2 (10:37→22:35)
[2022-09-19] MEDS: MONTELUKAST NA 10 MG TABLET PO SCH (22:16)
[2022-09-19] MEDS: ATORVASTATIN CA 20 MG TABLET (FP) PO SCH (22:16)
[2022-09-20] MEDS: NYSTATIN 500,000 UNITS/5 ML SUSPENSION PO SCH ×3 (06:39→17:45)
[2022-09-20] MEDS: LEVOTHYROXINE NA 125 MCG TABLET (FP) PO SCH (06:39)
[2022-09-20] MEDS: methylPREDNISolone NA SUCC 40 MG/1 ML VIAL IVPUSH SCH ×3 (06:39→21:08)
[2022-09-20 08:38] LABS: HEMOGLOBIN 11.2 GM/dL (10.7-15.3); MCH 25.2 pg (25.7-33.7); MEAN CELL VOLUME 78.8 fl (80-96); MEAN PLT VOLUME 7.7 fl (7.5-11.1); PLATELET COUNT 354 10^3/uL (134-434); RBC 4.45 M/mm3 (3.60-5.2); RDW 15.8 % (11.6-15.6); WHITE BLOOD COUNT 23.1 K/mm3 (4.0-10.0)
[2022-09-20] MEDS: ALBUTEROL SO4 2.5/IPRATROPIUM 0.5 INH SOL 3 ML VIAL.NEB. NEB SCH ×4 (08:55→20:03)
[2022-09-20 09:07] LABS: CALCIUM 8.6 mg/dL (8.5-10.1)
[2022-09-20 09:08] LABS: ALBUMIN 3.1 g/dl (3.4-5.0); BLOOD UREA NITROGEN 24.3 mg/dL (7-18)
[2022-09-20 09:10] LABS: CREATININE 0.7 mg/dL (0.55-1.3)
[2022-09-20 09:11] LABS: BILIRUBIN,TOTAL 0.4 mg/dL (0.2-1); TOT PROT 6.6 g/dl (6.4-8.2)
[2022-09-20] MEDS: HEPARIN NA (PORCINE) 5,000 UNITS/ML 1ML VIAL SQ SCH ×2 (09:28→21:08)
[2022-09-20] MEDS: AZITHROMYCIN IVPB 500 MG/250 ML BAG IVPB SCH (09:28)
[2022-09-20] MEDS: PANTOPRAZOLE 40 MG TABLET PO SCH (09:32)
[2022-09-20] MEDS: buPROPion HCL 100 MG TABLET PO SCH (09:33)
[2022-09-20] MEDS: LACTOBACILLUS ACIDOPHILUS 1 TABLET PO SCH (09:33)
[2022-09-20] MEDS: LORATADINE 10 MG TABLET PO SCH (09:34)
[2022-09-20] MEDS: HYDROXYCHLOROQUINE SO4 200 MG TABLET (FP) PO SCH ×2 (09:34→21:08)
[2022-09-20] MEDS: BUDESONIDE/FORMETEROL FUMARATE 160/4.5 mcg INHALER IH SCH ×2 (09:35→21:09)
[2022-09-20 09:46] LABS: ANISOCYTOSIS 2+; MACROCYTOSIS 0
[2022-09-20] MEDS: MONTELUKAST NA 10 MG TABLET PO SCH (21:08)
[2022-09-20] MEDS: ATORVASTATIN CA 20 MG TABLET (FP) PO SCH (21:09)
[2022-09-21] MEDS: NYSTATIN 500,000 UNITS/5 ML SUSPENSION PO SCH ×5 (01:38→23:21)
[2022-09-21] MEDS: LEVOTHYROXINE NA 125 MCG TABLET (FP) PO SCH (06:22)
[2022-09-21] MEDS: methylPREDNISolone NA SUCC 40 MG/1 ML VIAL IVPUSH SCH ×3 (06:23→22:12)
[2022-09-21] MEDS: ALBUTEROL SO4 2.5/IPRATROPIUM 0.5 INH SOL 3 ML VIAL.NEB. NEB SCH ×4 (07:29→20:13)
[2022-09-21] MEDS: HYDROXYCHLOROQUINE SO4 200 MG TABLET (FP) PO SCH ×2 (11:11→22:12)
[2022-09-21] MEDS: HEPARIN NA (PORCINE) 5,000 UNITS/ML 1ML VIAL SQ SCH ×2 (11:12→22:10)
[2022-09-21] MEDS: LACTOBACILLUS ACIDOPHILUS 1 TABLET PO SCH (11:12)
[2022-09-21] MEDS: buPROPion HCL 100 MG TABLET PO SCH (11:12)
[2022-09-21] MEDS: LORATADINE 10 MG TABLET PO SCH (11:12)
[2022-09-21] MEDS: PANTOPRAZOLE 40 MG TABLET PO SCH (11:12)
[2022-09-21] MEDS: BUDESONIDE/FORMETEROL FUMARATE 160/4.5 mcg INHALER IH SCH ×2 (11:13→22:19)
[2022-09-21] MEDS: AZITHROMYCIN IVPB 500 MG/250 ML BAG IVPB SCH (11:15)
[2022-09-21] MEDS: ATORVASTATIN CA 20 MG TABLET (FP) PO SCH (22:11)
[2022-09-21] MEDS: MONTELUKAST NA 10 MG TABLET PO SCH (22:11)
[2022-09-22] MEDS: NYSTATIN 500,000 UNITS/5 ML SUSPENSION PO SCH ×3 (06:40→17:06)
[2022-09-22] MEDS: LEVOTHYROXINE NA 125 MCG TABLET (FP) PO SCH (06:40)
[2022-09-22] MEDS: methylPREDNISolone NA SUCC 40 MG/1 ML VIAL IVPUSH SCH ×3 (06:41→22:59)
[2022-09-22] MEDS: ALBUTEROL SO4 2.5/IPRATROPIUM 0.5 INH SOL 3 ML VIAL.NEB. NEB SCH ×4 (07:40→20:00)
[2022-09-22] MEDS: HEPARIN NA (PORCINE) 5,000 UNITS/ML 1ML VIAL SQ SCH ×2 (09:34→20:59)
[2022-09-22] MEDS: PANTOPRAZOLE 40 MG TABLET PO SCH (09:34)
[2022-09-22] MEDS: LORATADINE 10 MG TABLET PO SCH (09:34)
[2022-09-22] MEDS: LACTOBACILLUS ACIDOPHILUS 1 TABLET PO SCH (09:34)
[2022-09-22] MEDS: buPROPion HCL 100 MG TABLET PO SCH (09:35)
[2022-09-22] MEDS: HYDROXYCHLOROQUINE SO4 200 MG TABLET (FP) PO SCH ×2 (09:35→20:59)
[2022-09-22] MEDS: BUDESONIDE/FORMETEROL FUMARATE 160/4.5 mcg INHALER IH SCH ×2 (09:35→21:00)
[2022-09-22] MEDS: ATORVASTATIN CA 20 MG TABLET (FP) PO SCH (20:59)
[2022-09-22] MEDS: MONTELUKAST NA 10 MG TABLET PO SCH (20:59)
[2022-09-23] MEDS: NYSTATIN 500,000 UNITS/5 ML SUSPENSION PO SCH ×5 (00:45→23:12)
[2022-09-23] MEDS: LEVOTHYROXINE NA 125 MCG TABLET (FP) PO SCH (06:02)
[2022-09-23] MEDS: ALBUTEROL SO4 2.5/IPRATROPIUM 0.5 INH SOL 3 ML VIAL.NEB. NEB SCH ×4 (07:00→19:50)
[2022-09-23] MEDS: LACTOBACILLUS ACIDOPHILUS 1 TABLET PO SCH (09:31)
[2022-09-23] MEDS: LORATADINE 10 MG TABLET PO SCH (09:31)
[2022-09-23] MEDS: PANTOPRAZOLE 40 MG TABLET PO SCH (09:31)
[2022-09-23] MEDS: buPROPion HCL 100 MG TABLET PO SCH (09:32)
[2022-09-23] MEDS: BUDESONIDE/FORMETEROL FUMARATE 160/4.5 mcg INHALER IH SCH ×2 (09:33→22:36)
[2022-09-23] MEDS: HEPARIN NA (PORCINE) 5,000 UNITS/ML 1ML VIAL SQ SCH ×2 (09:33→22:35)
[2022-09-23] MEDS: HYDROXYCHLOROQUINE SO4 200 MG TABLET (FP) PO SCH ×2 (09:33→22:35)
[2022-09-23] MEDS: methylPREDNISolone NA SUCC 40 MG/1 ML VIAL IVPUSH SCH ×2 (09:55→22:35)
[2022-09-23 13:02] LABS: HEMATOCRIT 35.8 % (32.4-45.2); HEMOGLOBIN 11.2 GM/dL (10.7-15.3); MCH 24.7 pg (25.7-33.7); MCHC 31.4 g/dl (32.0-36.0); MEAN CELL VOLUME 78.6 fl (80-96); MEAN PLT VOLUME 7.4 fl (7.5-11.1); PLATELET COUNT 397 10^3/uL (134-434); RBC 4.56 M/mm3 (3.60-5.2)
[2022-09-23 13:26] LABS: WHITE BLOOD COUNT 33.4 K/mm3 (4.0-10.0)
[2022-09-23 13:40] LABS: ALBUMIN 3.3 g/dl (3.4-5.0); CALCIUM 8.6 mg/dL (8.5-10.1)
[2022-09-23 13:43] LABS: CREATININE 0.8 mg/dL (0.55-1.3)
[2022-09-23 13:44] LABS: BILIRUBIN,TOTAL 0.3 mg/dL (0.2-1); TOT PROT 6.7 g/dl (6.4-8.2)
[2022-09-23 14:05] LABS: ANISOCYTOSIS 0; HELMET CELLS 0; HOWELL-JOLLY BODIES 0; MACROCYTOSIS 0; OVALOCYTE 0; ROULEAU 0; SICKELED CELLS 0; TARGET CELLS 0; TEAR DROP CELLS 0; TOXIC GRANULATION 0
[2022-09-23] MEDS: ATORVASTATIN CA 20 MG TABLET (FP) PO SCH (22:35)
[2022-09-23] MEDS: MONTELUKAST NA 10 MG TABLET PO SCH (22:35)
[2022-09-24] MEDS: LEVOTHYROXINE NA 125 MCG TABLET (FP) PO SCH (06:21)
[2022-09-24] MEDS: NYSTATIN 500,000 UNITS/5 ML SUSPENSION PO SCH ×4 (06:21→23:00)
[2022-09-24] MEDS: ALBUTEROL SO4 2.5/IPRATROPIUM 0.5 INH SOL 3 ML VIAL.NEB. NEB SCH ×4 (07:42→20:05)
[2022-09-24] MEDS: LACTOBACILLUS ACIDOPHILUS 1 TABLET PO SCH (10:29)
[2022-09-24] MEDS: HEPARIN NA (PORCINE) 5,000 UNITS/ML 1ML VIAL SQ SCH ×2 (10:29→23:00)
[2022-09-24] MEDS: methylPREDNISolone NA SUCC 40 MG/1 ML VIAL IVPUSH SCH ×2 (10:29→23:00)
[2022-09-24] MEDS: PANTOPRAZOLE 40 MG TABLET PO SCH (10:29)
[2022-09-24] MEDS: LORATADINE 10 MG TABLET PO SCH (10:29)
[2022-09-24] MEDS: HYDROXYCHLOROQUINE SO4 200 MG TABLET (FP) PO SCH ×2 (10:31→22:59)
[2022-09-24] MEDS: buPROPion HCL 100 MG TABLET PO SCH (10:31)
[2022-09-24] MEDS: BUDESONIDE/FORMETEROL FUMARATE 160/4.5 mcg INHALER IH SCH ×2 (10:31→23:17)
[2022-09-24 10:52] LABS: HEMATOCRIT 37.5 % (32.4-45.2); HEMOGLOBIN 11.7 GM/dL (10.7-15.3); MCH 24.6 pg (25.7-33.7); MCHC 31.1 g/dl (32.0-36.0); MEAN PLT VOLUME 7.6 fl (7.5-11.1); PLATELET COUNT 402 10^3/uL (134-434); RBC 4.75 M/mm3 (3.60-5.2); RDW 16.3 % (11.6-15.6)
[2022-09-24 11:02] LABS: WHITE BLOOD COUNT 33.6 K/mm3 (4.0-10.0)
[2022-09-24 12:13] LABS: ANISOCYTOSIS 1+; MACROCYTOSIS 0
[2022-09-24] MEDS: MONTELUKAST NA 10 MG TABLET PO SCH (23:00)
[2022-09-24] MEDS: ATORVASTATIN CA 20 MG TABLET (FP) PO SCH (23:00)
[2022-09-25] MEDS: NYSTATIN 500,000 UNITS/5 ML SUSPENSION PO SCH ×2 (06:24→13:49)
[2022-09-25] MEDS: LEVOTHYROXINE NA 125 MCG TABLET (FP) PO SCH (06:24)
[2022-09-25 06:33] VITALS: BP 115/84; PULSE 97; RESP 20; TEMP 98
[2022-09-25] MEDS: ALBUTEROL SO4 2.5/IPRATROPIUM 0.5 INH SOL 3 ML VIAL.NEB. NEB SCH ×2 (08:20→11:24)
[2022-09-25] MEDS: buPROPion HCL 100 MG TABLET PO SCH (09:58)
[2022-09-25] MEDS: LACTOBACILLUS ACIDOPHILUS 1 TABLET PO SCH (09:58)
[2022-09-25] MEDS: LORATADINE 10 MG TABLET PO SCH (09:58)
[2022-09-25] MEDS: PANTOPRAZOLE 40 MG TABLET PO SCH (09:58)
[2022-09-25] MEDS: methylPREDNISolone NA SUCC 40 MG/1 ML VIAL IVPUSH SCH (09:59)
[2022-09-25] MEDS: BUDESONIDE/FORMETEROL FUMARATE 160/4.5 mcg INHALER IH SCH (09:59)
[2022-09-25] MEDS: HEPARIN NA (PORCINE) 5,000 UNITS/ML 1ML VIAL SQ SCH (09:59)
[2022-09-25] MEDS: HYDROXYCHLOROQUINE SO4 200 MG TABLET (FP) PO SCH (09:59)
[2022-09-26] MEDS ORDERED: predniSONE 20 MG TABLET (UD) PO SCH (10:00)
== END 2022-09-25 14:22 | disposition home health service (06) | DRG 191 ==
LOC: JER 10:54 → JERBED 11:37 → J8W 15:37
PROVIDERS: ADMIT Internal Medicine; ATTEND Internal Medicine
DX: J44.0 Chronic obstructive pulmonary disease with (acute) lower respiratory infection (principal); I50.30 Unspecified diastolic (congestive) heart failure; J45.901 Unspecified asthma with (acute) exacerbation; J96.11 Chronic respiratory failure with hypoxia; J44.1 Chronic obstructive pulmonary disease with (acute) exacerbation; M35.00 Sjogren syndrome, unspecified; J20.9 Acute bronchitis, unspecified; R91.1 Solitary pulmonary nodule; K21.9 Gastro-esophageal reflux disease without esophagitis; E03.9 Hypothyroidism, unspecified
CPT/HCPCS: 0241U-QW; 36415; 71045-TC-FY; 71260-TC; 80053; 81003; 82803; 82962; 84484; 85025; 87086; 93005; 93010; 94640; 99285-25; J1644; Q9967

== ENCOUNTER 2022-11-30 04:12 | Day surgery (SDC) | payer OTHER ==
[2022-11-26 14:38] VITALS: BMI 29.5
[~2022-11-30 04:12] MED LIST: BUPIVACAINE HCL/PF 0.25% (2.5MG/ML) 10 ML VIAL IJ ONE; DEXAMETHASONE SOD PHOSPHATE 10 MG/1 ML VIAL IVPUSH ONE; IOHEXOL 180 MG/1 ML ML IJ ONE; LIDOCAINE HCL 1%, 10 MG/ML (20ML VIAL) NR ONE
[2022-11-30] MEDS ORDERED: DEXAMETHASONE SOD PHOSPHATE 10 MG/1 ML VIAL ONE (07:17)
[2022-11-30] MEDS ORDERED: LIDOCAINE HCL/PF 1% SDV 5ML VIAL ONE (07:17)
[2022-11-30] MEDS ORDERED: BUPIVACAINE HCL/PF 0.25% (2.5MG/ML) 10 ML VIAL ONE (07:17)
[2022-11-30 08:23] VITALS: RESP 18
[2022-11-30] MEDS ORDERED: LIDOCAINE HCL 1%, 10 MG/ML (20ML VIAL) NR ONE ×2 (09:58→10:25)
[2022-11-30] MEDS ORDERED: IOHEXOL 180 MG/1 ML ML IJ ONE (09:59)
[2022-11-30] MEDS ORDERED: BUPIVACAINE HCL/PF 0.25% (2.5MG/ML) 10 ML VIAL IJ ONE ×2 (10:00→10:25)
[2022-11-30] MEDS ORDERED: DEXAMETHASONE SOD PHOSPHATE 10 MG/1 ML VIAL IVPUSH ONE ×2 (10:01→10:25)
[2022-11-30] MEDS ORDERED: MIDAZOLAM HCL 2 MG/2 ML SINGLE DOSE VIAL ONE (10:12)
[2022-11-30 10:45] VITALS: TEMP 98.8
[2022-11-30 11:40] VITALS: BP 110/74; PULSE 90
== END 2022-11-30 11:30 | disposition home or self-care (01) ==
LOC: JASU-SURG 04:12
PROVIDERS: ATTEND Physical Medicine & Rehabilitation
PROC: 3E0R3BZ Introduction of Anesthetic Agent into Spinal Canal, Percutaneous Approach (ICD-10-PCS; 2022-11-30)
PROC: 3E0R33Z Introduction of Anti-inflammatory into Spinal Canal, Percutaneous Approach (ICD-10-PCS; principal; 2022-11-30 10:00)
DX: M54.16 Radiculopathy, lumbar region (principal); M54.50 Low back pain, unspecified
CPT/HCPCS: 76000-TC-FY; J1100

== ENCOUNTER 2022-12-07 09:49 | Day surgery (SDC) | payer OTHER ==
[2022-12-07] MEDS ORDERED: IRON SUCROSE INJECTION 200 MG in SODIUM CHLORIDE 100 ML IVPB ONE (10:00)
[2022-12-07 15:07] VITALS: BP 136/85; PULSE 99; RESP 20; TEMP 98.2
== END 2022-12-07 11:30 | disposition home or self-care (01) ==
LOC: JONCNONCHE 09:49
PROVIDERS: ATTEND Internal Medicine Hematology & Oncology
PROC: 3E033GC Introduction of Other Therapeutic Substance into Peripheral Vein, Percutaneous Approach (ICD-10-PCS; principal; 2022-12-07)
DX: D50.9 Iron deficiency anemia, unspecified (principal)
CPT/HCPCS: 96365; J1756

== ENCOUNTER 2022-12-14 09:20 | Day surgery (SDC) | payer OTHER ==
[2022-12-14] MEDS ORDERED: IRON SUCROSE INJECTION 200 MG in SODIUM CHLORIDE 100 ML IVPB ONE (10:00)
[2022-12-14 16:30] VITALS: BP 121/75; PULSE 97; RESP 18; TEMP 98.1
== END 2022-12-14 11:00 | disposition home or self-care (01) ==
LOC: JONCNONCHE 09:20
PROVIDERS: ATTEND Internal Medicine Hematology & Oncology
PROC: 3E033GC Introduction of Other Therapeutic Substance into Peripheral Vein, Percutaneous Approach (ICD-10-PCS; principal; 2022-12-14)
DX: D50.9 Iron deficiency anemia, unspecified (principal)
CPT/HCPCS: 96365; J1756

== ENCOUNTER 2022-12-21 10:04 | Day surgery (SDC) | payer OTHER ==
[~2022-12-21 10:04] MED LIST changes: -BUPIVACAINE HCL/PF 0.25% (2.5MG/ML) 10 ML VIAL IJ ONE; -DEXAMETHASONE SOD PHOSPHATE 10 MG/1 ML VIAL IVPUSH ONE; -IOHEXOL 180 MG/1 ML ML IJ ONE; +IRON SUCROSE INJECTION 200 MG in SODIUM CHLORIDE 100 ML IVPB ONE; -LIDOCAINE HCL 1%, 10 MG/ML (20ML VIAL) NR ONE
[2022-12-21 13:27] VITALS: TEMP 98
[2022-12-21 18:51] VITALS: BP 112/81; PULSE 97; RESP 20
== END 2022-12-21 11:30 | disposition home or self-care (01) ==
LOC: JONCNONCHE 10:04
PROVIDERS: ATTEND Internal Medicine Hematology & Oncology
PROC: 3E033GC Introduction of Other Therapeutic Substance into Peripheral Vein, Percutaneous Approach (ICD-10-PCS; principal; 2022-12-21)
DX: D50.9 Iron deficiency anemia, unspecified (principal)
CPT/HCPCS: 96365; J1756

== ENCOUNTER 2022-12-28 10:50 | Day surgery (SDC) | payer OTHER ==
[2022-12-28 15:46] VITALS: TEMP 98.1
[2022-12-28 15:48] VITALS: BP 138/87; PULSE 94; RESP 18
== END 2022-12-28 12:30 | disposition home or self-care (01) ==
LOC: JONCNONCHE 10:50
PROVIDERS: ATTEND Internal Medicine Hematology & Oncology
PROC: 3E033GC Introduction of Other Therapeutic Substance into Peripheral Vein, Percutaneous Approach (ICD-10-PCS; principal; 2022-12-28)
DX: D50.9 Iron deficiency anemia, unspecified (principal)
CPT/HCPCS: 96365; J1756

== ENCOUNTER 2023-10-12 10:04 | Inpatient (IN) | payer OTHER ==
[2023-10-12] MEDS ORDERED: ALBUTEROL SO4 2.5/IPRATROPIUM 0.5 INH SOL 3 ML VIAL.NEB. NEB ONE ×2 (11:58→13:35)
[2023-10-12] MEDS ORDERED: ACETAMINOPHEN 1000 MG/100 ML BAG IVPB ONE (11:58)
[2023-10-12] MEDS ORDERED: ACETAMINOPHEN INJECTION 100 ML IVPB ONE (12:23)
[2023-10-12] MEDS ORDERED: methylPREDNISolone NA SUCC 125 MG/2 ML VIAL IVPB ONE (12:28)
[2023-10-12 12:44] LABS: VENOUS BASE EXCESS 0.2 mmol/L (-2-2); VENOUS O2 SATURATION 69.2 % (70-80); VENOUS PCO2 49.1 mmHg (38-52); VENOUS PH 7.348 (7.310-7.410)
[2023-10-12 12:53] LABS: INR 1.03 (0.83-1.09)
[2023-10-12 12:56] LABS: ACTIVATED PTT 30.3 SECONDS (25.2-36.5)
[2023-10-12 13:01] LABS: BASO % 0.5 % (0-2.0); HEMATOCRIT 37.7 % (32.4-45.2); HEMOGLOBIN 11.9 GM/dL (10.7-15.3); LYMPH % 10.9 % (8-40); MCH 25.3 pg (25.7-33.7); MCHC 31.5 g/dl (32.0-36.0); MEAN CELL VOLUME 80.2 fl (80-96); MEAN PLT VOLUME 7.3 fl (7.5-11.1); MONO % 5.2 % (3.8-10.2); NEUT % 82.4 % (42.8-82.8); PLATELET COUNT 364 10^3/uL (134-434); RDW 15.8 % (11.6-15.6); WHITE BLOOD COUNT 16.6 K/mm3 (4.0-10.0)
[2023-10-12 13:18] LABS: POTASSIUM 4.1 mmol/L (3.5-5.1)
[2023-10-12 13:21] LABS: ALBUMIN 3.6 g/dl (3.4-5.0); BLOOD UREA NITROGEN 14.8 mg/dL (7-18); CALCIUM 9.4 mg/dL (8.5-10.1); MAGNESIUM 2.3 mg/dL (1.8-2.4)
[2023-10-12 13:24] LABS: CREATININE 0.7 mg/dL (0.55-1.3)
[2023-10-12 13:26] LABS: BILIRUBIN,TOTAL 0.2 mg/dL (0.2-1); TOT PROT 7.2 g/dl (6.4-8.2)
[2023-10-12] MEDS ORDERED: methylPREDNISolone NA SUCC 125 MG/2 ML VIAL ONE (13:34)
[2023-10-12] MEDS ORDERED: ALBUTEROL SO4 HFA INHALER IH PRN (16:38)
[2023-10-12] MEDS ORDERED: guaiFENesin 200 MG/10 ML 10 ML UNIT-DOSE CUPS PO PRN (16:41)
[2023-10-12 16:45] VITALS: BMI 31.2
[2023-10-12] MEDS: methylPREDNISolone NA SUCC 40 MG/1 ML VIAL IVPB SCH (17:35)
[2023-10-12] MEDS: ALBUTEROL SO4 0.083% IH SOL 2.5 MG/3 ML VIAL.NEB. NEB PRN (21:45)
[2023-10-12] MEDS ORDERED: PATIENT'S OWN MEDICATION (NON-FORMULARY) (Cyclosporine [Restasis] 1 EACH Droperette) OP SCH (22:00)
[2023-10-12] MEDS: MONTELUKAST NA 10 MG TABLET PO SCH (22:37)
[2023-10-12] MEDS: ATORVASTATIN CA 20 MG TABLET (FP) PO SCH (22:37)
[2023-10-12] MEDS: HEPARIN NA (PORCINE) 5,000 UNITS/ML 1ML VIAL SQ SCH (22:38)
[2023-10-12] MEDS: HYDROXYCHLOROQUINE SO4 200 MG TABLET (FP) PO SCH (22:39)
[2023-10-12] MEDS: ACETAMINOPHEN 325 MG TABLET (FP) PO PRN (22:44)
[2023-10-13] MEDS: methylPREDNISolone NA SUCC 40 MG/1 ML VIAL IVPB SCH ×3 (01:42→17:19)
[2023-10-13] MEDS: ALBUTEROL SO4 0.083% IH SOL 2.5 MG/3 ML VIAL.NEB. NEB PRN (05:35)
[2023-10-13] MEDS: INSULIN ASPART SLIDING SCALE (NOVOLOG) 1 VIAL SQ SCH ×4 (06:19→21:54)
[2023-10-13] MEDS ORDERED: LEVOTHYROXINE NA 125 MCG TABLET (FP) PO SCH (07:00)
[2023-10-13] MEDS: FAMOTIDINE 20 MG TABLET PO SCH (09:47)
[2023-10-13] MEDS: LORATADINE 10 MG TABLET PO SCH (09:48)
[2023-10-13] MEDS: HEPARIN NA (PORCINE) 5,000 UNITS/ML 1ML VIAL SQ SCH ×2 (09:48→21:53)
[2023-10-13] MEDS: HYDROXYCHLOROQUINE SO4 200 MG TABLET (FP) PO SCH ×2 (09:48→21:56)
[2023-10-13] MEDS: buPROPion HCL 100 MG TABLET PO SCH (09:49)
[2023-10-13] MEDS: ACETAMINOPHEN 325 MG TABLET (FP) PO PRN ×2 (09:52→21:52)
[2023-10-13 10:51] LABS: BASO % 0.1 % (0-2.0); HEMATOCRIT 36.7 % (32.4-45.2); HEMOGLOBIN 11.6 GM/dL (10.7-15.3); MCH 25.4 pg (25.7-33.7); MCHC 31.8 g/dl (32.0-36.0); MEAN CELL VOLUME 80.1 fl (80-96); MEAN PLT VOLUME 7.9 fl (7.5-11.1); MONO % 2.8 % (3.8-10.2); NEUT % 88.1 % (42.8-82.8); PLATELET COUNT 382 10^3/uL (134-434); RBC 4.58 M/mm3 (3.60-5.2); WHITE BLOOD COUNT 18.6 K/mm3 (4.0-10.0)
[2023-10-13 11:17] LABS: BLOOD UREA NITROGEN 13.5 mg/dL (7-18)
[2023-10-13 11:21] LABS: CALCIUM 9.9 mg/dL (8.5-10.1)
[2023-10-13 11:24] LABS: ALBUMIN 3.4 g/dl (3.4-5.0)
[2023-10-13 11:26] LABS: CREATININE 0.8 mg/dL (0.55-1.3)
[2023-10-13 11:27] LABS: BILIRUBIN,TOTAL 0.1 mg/dL (0.2-1); TOT PROT 7.2 g/dl (6.4-8.2)
[2023-10-13] MEDS ORDERED: MELATONIN 5 MG TABLETS PO PRN (12:50)
[2023-10-13] MEDS ORDERED: diphenhydrAMINE HCL 25 MG CAPSULE (FP) PO PRN (12:50)
[2023-10-13] MEDS: FLUTICASONE PROP 0.05% 16 GM NASAL SPRAY NS SCH (13:04)
[2023-10-13] MEDS: FLUTICASONE/UMECLIDIN/VILANTER(100-62.5-25 TRELEGY ELLIPTA) INAHLER IH SCH (13:05)
[2023-10-13] MEDS ORDERED: FLUCONAZOLE 150 MG TABLET PO ONE (14:00)
[2023-10-13] MEDS: MONTELUKAST NA 10 MG TABLET PO SCH (21:52)
[2023-10-13] MEDS: ATORVASTATIN CA 20 MG TABLET (FP) PO SCH (21:53)
[2023-10-14] MEDS: methylPREDNISolone NA SUCC 40 MG/1 ML VIAL IVPB SCH ×3 (02:55→17:13)
[2023-10-14] MEDS: INSULIN ASPART SLIDING SCALE (NOVOLOG) 1 VIAL SQ SCH ×4 (06:51→21:57)
[2023-10-14] MEDS ORDERED: LEVOTHYROXINE NA 112 MCG TABLET (FP) PO SCH (07:00)
[2023-10-14] MEDS: ALBUTEROL SO4 0.083% IH SOL 2.5 MG/3 ML VIAL.NEB. NEB PRN ×3 (08:25→21:09)
[2023-10-14] MEDS: HEPARIN NA (PORCINE) 5,000 UNITS/ML 1ML VIAL SQ SCH ×2 (10:10→21:57)
[2023-10-14] MEDS: HYDROXYCHLOROQUINE SO4 200 MG TABLET (FP) PO SCH ×2 (10:10→21:57)
[2023-10-14] MEDS: LORATADINE 10 MG TABLET PO SCH (10:10)
[2023-10-14] MEDS: buPROPion HCL 100 MG TABLET PO SCH (10:10)
[2023-10-14] MEDS: FAMOTIDINE 20 MG TABLET PO SCH (10:10)
[2023-10-14] MEDS: FLUTICASONE PROP 0.05% 16 GM NASAL SPRAY NS SCH (10:11)
[2023-10-14] MEDS: FLUTICASONE/UMECLIDIN/VILANTER(100-62.5-25 TRELEGY ELLIPTA) INAHLER IH SCH (10:12)
[2023-10-14 11:24] LABS: HEMATOCRIT 37.9 % (32.4-45.2); HEMOGLOBIN 11.9 GM/dL (10.7-15.3); MCH 25.4 pg (25.7-33.7); MCHC 31.5 g/dl (32.0-36.0); MEAN CELL VOLUME 80.7 fl (80-96); MEAN PLT VOLUME 7.9 fl (7.5-11.1); PLATELET COUNT 391 10^3/uL (134-434); RBC 4.69 M/mm3 (3.60-5.2); RDW 15.7 % (11.6-15.6); WHITE BLOOD COUNT 23.2 K/mm3 (4.0-10.0)
[2023-10-14 12:11] LABS: ANISOCYTOSIS 0; MACROCYTOSIS 0
[2023-10-14 12:23] LABS: ALBUMIN 3.4 g/dl (3.4-5.0); BLOOD UREA NITROGEN 20.2 mg/dL (7-18)
[2023-10-14 12:26] LABS: CREATININE 0.8 mg/dL (0.55-1.3)
[2023-10-14 12:28] LABS: BILIRUBIN,TOTAL 0.1 mg/dL (0.2-1); TOT PROT 7.3 g/dl (6.4-8.2)
[2023-10-14] MEDS ORDERED: BUDESONIDE 0.25 MG/2ML INH SUSP VIAL NEB PRN (12:39)
[2023-10-14 16:08] VITALS: RESP 18
[2023-10-14] MEDS: ATORVASTATIN CA 20 MG TABLET (FP) PO SCH (21:57)
[2023-10-14] MEDS: MONTELUKAST NA 10 MG TABLET PO SCH (21:57)
[2023-10-15] MEDS: methylPREDNISolone NA SUCC 40 MG/1 ML VIAL IVPB SCH ×3 (02:19→21:59)
[2023-10-15] MEDS: INSULIN ASPART SLIDING SCALE (NOVOLOG) 1 VIAL SQ SCH ×4 (06:34→21:57)
[2023-10-15] MEDS: LEVOTHYROXINE NA 112 MCG TABLET (FP) PO SCH (06:34)
[2023-10-15] MEDS: FAMOTIDINE 20 MG TABLET PO SCH (10:51)
[2023-10-15] MEDS: LORATADINE 10 MG TABLET PO SCH (10:51)
[2023-10-15] MEDS: buPROPion HCL 100 MG TABLET PO SCH (10:52)
[2023-10-15] MEDS: HYDROXYCHLOROQUINE SO4 200 MG TABLET (FP) PO SCH ×2 (10:53→22:00)
[2023-10-15] MEDS: FLUTICASONE PROP 0.05% 16 GM NASAL SPRAY NS SCH (10:54)
[2023-10-15] MEDS: FLUTICASONE/UMECLIDIN/VILANTER(100-62.5-25 TRELEGY ELLIPTA) INAHLER IH SCH (10:55)
[2023-10-15] MEDS: CYCLOBENZAPRINE HCL 5 MG TABLET PO PRN ×2 (11:04→21:59)
[2023-10-15] MEDS: HEPARIN NA (PORCINE) 5,000 UNITS/ML 1ML VIAL SQ SCH ×2 (11:04→22:00)
[2023-10-15] MEDS: ACETAMINOPHEN 325 MG TABLET (FP) PO PRN ×2 (11:05→21:58)
[2023-10-15] MEDS ORDERED: guaiFENesin/D-METHORPHAN HB 10 ML UNIT-DOSE CUPS PO PRN (14:38)
[2023-10-15] MEDS: ATORVASTATIN CA 20 MG TABLET (FP) PO SCH (21:59)
[2023-10-15] MEDS: MONTELUKAST NA 10 MG TABLET PO SCH (21:59)
[2023-10-16] MEDS: LEVOTHYROXINE NA 112 MCG TABLET (FP) PO SCH (06:27)
[2023-10-16] MEDS: INSULIN ASPART SLIDING SCALE (NOVOLOG) 1 VIAL SQ SCH ×4 (06:28→23:10)
[2023-10-16] MEDS: methylPREDNISolone NA SUCC 40 MG/1 ML VIAL IVPB SCH ×2 (10:09→22:55)
[2023-10-16] MEDS: LORATADINE 10 MG TABLET PO SCH (10:09)
[2023-10-16] MEDS: HEPARIN NA (PORCINE) 5,000 UNITS/ML 1ML VIAL SQ SCH ×2 (10:09→22:54)
[2023-10-16] MEDS: FAMOTIDINE 20 MG TABLET PO SCH (10:09)
[2023-10-16] MEDS: HYDROXYCHLOROQUINE SO4 200 MG TABLET (FP) PO SCH ×2 (10:13→22:55)
[2023-10-16] MEDS: buPROPion HCL 100 MG TABLET PO SCH (10:13)
[2023-10-16] MEDS: FLUTICASONE PROP 0.05% 16 GM NASAL SPRAY NS SCH (10:15)
[2023-10-16] MEDS: FLUTICASONE/UMECLIDIN/VILANTER(100-62.5-25 TRELEGY ELLIPTA) INAHLER IH SCH (10:16)
[2023-10-16 11:15] LABS: POTASSIUM 3.7 mmol/L (3.5-5.1)
[2023-10-16 11:16] LABS: HEMATOCRIT 37.9 % (32.4-45.2); HEMOGLOBIN 11.9 GM/dL (10.7-15.3); MCHC 31.4 g/dl (32.0-36.0); MEAN CELL VOLUME 79.9 fl (80-96); MEAN PLT VOLUME 7.9 fl (7.5-11.1); PLATELET COUNT 375 10^3/uL (134-434); RBC 4.74 M/mm3 (3.60-5.2); RDW 16.5 % (11.6-15.6); WHITE BLOOD COUNT 18.9 K/mm3 (4.0-10.0)
[2023-10-16 11:25] LABS: CALCIUM 9.5 mg/dL (8.5-10.1)
[2023-10-16 11:26] LABS: ALBUMIN 3.2 g/dl (3.4-5.0); BLOOD UREA NITROGEN 24.4 mg/dL (7-18)
[2023-10-16 11:29] LABS: CREATININE 0.7 mg/dL (0.55-1.3)
[2023-10-16 11:30] LABS: BILIRUBIN,TOTAL 0.1 mg/dL (0.2-1)
[2023-10-16 11:31] LABS: TOT PROT 6.7 g/dl (6.4-8.2)
[2023-10-16 12:05] LABS: ANISOCYTOSIS 3+; MACROCYTOSIS 0
[2023-10-16] MEDS: POLYETHYLENE GLYCOL (HEALTHYLAX) 3350 17 GM PACKET PO SCH (15:59)
[2023-10-16] MEDS: ATORVASTATIN CA 20 MG TABLET (FP) PO SCH (22:54)
[2023-10-16] MEDS: MONTELUKAST NA 10 MG TABLET PO SCH (22:55)
[2023-10-17] MEDS: INSULIN ASPART SLIDING SCALE (NOVOLOG) 1 VIAL SQ SCH ×4 (06:05→22:20)
[2023-10-17] MEDS: LEVOTHYROXINE NA 112 MCG TABLET (FP) PO SCH (06:05)
[2023-10-17] MEDS: POLYETHYLENE GLYCOL (HEALTHYLAX) 3350 17 GM PACKET PO SCH (10:12)
[2023-10-17] MEDS: FAMOTIDINE 20 MG TABLET PO SCH (10:12)
[2023-10-17] MEDS: methylPREDNISolone NA SUCC 40 MG/1 ML VIAL IVPB SCH ×2 (10:12→22:21)
[2023-10-17] MEDS: LORATADINE 10 MG TABLET PO SCH (10:12)
[2023-10-17] MEDS: HEPARIN NA (PORCINE) 5,000 UNITS/ML 1ML VIAL SQ SCH ×2 (10:12→22:19)
[2023-10-17] MEDS: HYDROXYCHLOROQUINE SO4 200 MG TABLET (FP) PO SCH ×2 (10:13→22:21)
[2023-10-17] MEDS: FLUTICASONE PROP 0.05% 16 GM NASAL SPRAY NS SCH (10:13)
[2023-10-17] MEDS: buPROPion HCL 100 MG TABLET PO SCH (10:13)
[2023-10-17] MEDS: FLUTICASONE/UMECLIDIN/VILANTER(100-62.5-25 TRELEGY ELLIPTA) INAHLER IH SCH (10:15)
[2023-10-17] MEDS: AZITHROMYCIN IVPB 500 MG/250 ML BAG IVPB SCH ×2 (13:33→16:42)
[2023-10-17] MEDS: AZITHROMYCIN 250 MG TABLET PO SCH (19:42)
[2023-10-17 22:12] VITALS: TEMP 98.4
[2023-10-17] MEDS: ATORVASTATIN CA 20 MG TABLET (FP) PO SCH (22:19)
[2023-10-17] MEDS: MONTELUKAST NA 10 MG TABLET PO SCH (22:19)
[2023-10-17] MEDS: predniSONE 20 MG TABLET (UD) PO SCH (22:20)
[2023-10-18] MEDS: LEVOTHYROXINE NA 112 MCG TABLET (FP) PO SCH (06:06)
[2023-10-18] MEDS: INSULIN ASPART SLIDING SCALE (NOVOLOG) 1 VIAL SQ SCH ×3 (06:07→16:26)
[2023-10-18 06:47] VITALS: BP 142/79; PULSE 81
[2023-10-18] MEDS: FAMOTIDINE 20 MG TABLET PO SCH (10:02)
[2023-10-18] MEDS: AZITHROMYCIN 250 MG TABLET PO SCH (10:02)
[2023-10-18] MEDS: predniSONE 20 MG TABLET (UD) PO SCH (10:02)
[2023-10-18] MEDS: LORATADINE 10 MG TABLET PO SCH (10:02)
[2023-10-18] MEDS: POLYETHYLENE GLYCOL (HEALTHYLAX) 3350 17 GM PACKET PO SCH (10:02)
[2023-10-18] MEDS: FLUTICASONE PROP 0.05% 16 GM NASAL SPRAY NS SCH (10:03)
[2023-10-18] MEDS: HEPARIN NA (PORCINE) 5,000 UNITS/ML 1ML VIAL SQ SCH (10:03)
[2023-10-18] MEDS: FLUTICASONE/UMECLIDIN/VILANTER(100-62.5-25 TRELEGY ELLIPTA) INAHLER IH SCH (10:03)
[2023-10-18] MEDS: methylPREDNISolone NA SUCC 40 MG/1 ML VIAL IVPB SCH (10:04)
[2023-10-18] MEDS: AZITHROMYCIN IVPB 500 MG/250 ML BAG IVPB SCH (10:06)
[2023-10-18] MEDS: buPROPion HCL 100 MG TABLET PO SCH (10:08)
[2023-10-18] MEDS: HYDROXYCHLOROQUINE SO4 200 MG TABLET (FP) PO SCH (10:08)
[2023-10-18] MEDS ORDERED: FLUCONAZOLE 150 MG TABLET PO ONE (15:17)
== END 2023-10-18 16:55 | disposition home health service (06) | DRG 191 ==
LOC: JER 10:04 → JERBED 13:36 → J5S 15:36
PROVIDERS: ADMIT Internal Medicine; ATTEND Internal Medicine
DX: J44.1 Chronic obstructive pulmonary disease with (acute) exacerbation (principal); I50.32 Chronic diastolic (congestive) heart failure; I11.0 Hypertensive heart disease with heart failure; E78.5 Hyperlipidemia, unspecified; K21.9 Gastro-esophageal reflux disease without esophagitis; E03.9 Hypothyroidism, unspecified
CPT/HCPCS: 0241U-QW; 36415; 71045-TC-FY; 71250-TC; 80053; 82550; 82803; 82962; 83735; 84484; 85025; 85610; 85730; 93005; 93010; 94640; 99285-25; J1644

== ENCOUNTER 2023-11-20 10:16 | Inpatient (IN) | payer OTHER ==
[2023-11-20] MEDS ORDERED: methylPREDNISolone NA SUCC 125 MG/2 ML VIAL ONE (10:58)
[2023-11-20] MEDS ORDERED: ALBUTEROL SO4 2.5/IPRATROPIUM 0.5 INH SOL 3 ML VIAL.NEB. NEB ONE (10:58)
[2023-11-20] MEDS: ALBUTEROL SO4 2.5/IPRATROPIUM 0.5 INH SOL 3 ML VIAL.NEB. NEB ONE (11:14)
[2023-11-20] MEDS: methylPREDNISolone NA SUCC 125 MG/2 ML VIAL IVPUSH ONE (11:14)
[2023-11-20] MEDS ORDERED: ACETAMINOPHEN INJECTION 100 ML IVPB ONE (11:17)
[2023-11-20] MEDS ORDERED: MAGNESIUM 1GM/D5W - 1 GM/100 ML IVPB IVPB ONE (11:17)
[2023-11-20] MEDS: ACETAMINOPHEN 1000 MG/100 ML BAG IVPB ONE (11:27)
[2023-11-20] MEDS: MAGNESIUM SULF 50% (8.12 MEQ/2 ML-1 GM VIAL) IVPB ONE (11:27)
[2023-11-20] MEDS ORDERED: AZITHROMYCIN IVPB 500 MG/250 ML BAG IVPB ONE (11:29)
[2023-11-20 11:36] LABS: BASO % 0.4 % (0-2.0); EOS % 0.2 % (0-4.5); HEMATOCRIT 36.4 % (32.4-45.2); HEMOGLOBIN 12.1 GM/dL (10.7-15.3); LYMPH % 9.8 % (8-40); MCH 26.7 pg (25.7-33.7); MCHC 33.2 g/dl (32.0-36.0); MEAN CELL VOLUME 80.3 fl (80-96); MEAN PLT VOLUME 7.2 fl (7.5-11.1); MONO % 8.8 % (3.8-10.2); NEUT % 80.8 % (42.8-82.8); PLATELET COUNT 252 10^3/uL (134-434); RBC 4.54 M/mm3 (3.60-5.2); RDW 17.8 % (11.6-15.6); WHITE BLOOD COUNT 9.9 K/mm3 (4.0-10.0)
[2023-11-20 12:09] LABS: ALBUMIN 3.1 g/dl (3.4-5.0); BLOOD UREA NITROGEN 10.4 mg/dL (7-18); CALCIUM 8.3 mg/dL (8.5-10.1)
[2023-11-20 12:12] LABS: CREATININE 0.8 mg/dL (0.55-1.3)
[2023-11-20 12:13] LABS: BILIRUBIN,TOTAL 0.5 mg/dL (0.2-1)
[2023-11-20 12:14] LABS: TOT PROT 6.3 g/dl (6.4-8.2)
[2023-11-20] MEDS: AZITHROMYCIN IVPB 500 MG in DEXTROSE 5%-WATER - 250 ML IVPB ONE (12:35)
[2023-11-20] MEDS ORDERED: BUDESONIDE 0.25 MG/2ML INH SUSP VIAL NEB PRN (17:50)
[2023-11-20] MEDS ORDERED: LORATADINE 10 MG TABLET PO PRN (17:50)
[2023-11-20] MEDS ORDERED: ARTIFICIAL TEARS OPHTHALMIC DROPS OU PRN (17:50)
[2023-11-20 17:53] VITALS: BMI 31.8
[2023-11-20] MEDS: ALBUTEROL SO4 0.083% IH SOL 2.5 MG/3 ML VIAL.NEB. NEB PRN (19:46)
[2023-11-20] MEDS: MONTELUKAST NA 10 MG TABLET PO SCH (21:29)
[2023-11-20] MEDS: methylPREDNISolone NA SUCC 40 MG/1 ML VIAL IVPUSH SCH (21:29)
[2023-11-20] MEDS: FAMOTIDINE 20 MG TABLET PO SCH (21:29)
[2023-11-20] MEDS: HEPARIN NA (PORCINE) 5,000 UNITS/ML 1ML VIAL SQ SCH (21:30)
[2023-11-20] MEDS: ATORVASTATIN CA 20 MG TABLET (FP) PO SCH (21:30)
[2023-11-20] MEDS ORDERED: PATIENT'S OWN MEDICATION (NON-FORMULARY) (Cyclosporine [Restasis] 1 EACH Droperette) OU SCH (22:00)
[2023-11-20] MEDS: HYDROXYCHLOROQUINE SO4 200 MG TABLET (FP) PO SCH (22:01)
[2023-11-21] MEDS: LEVOTHYROXINE NA 112 MCG TABLET (FP) PO SCH (07:52)
[2023-11-21] MEDS: FLUTICASONE/UMECLIDIN/VILANTER(100-62.5-25 TRELEGY ELLIPTA) INAHLER IH SCH (09:06)
[2023-11-21] MEDS: AZITHROMYCIN IVPB 500 MG/250 ML BAG IVPB SCH (10:08)
[2023-11-21] MEDS: FLUCONAZOLE 150 MG TABLET PO ONE (17:28)
[2023-11-21] MEDS: ACETAMINOPHEN 325 MG TABLET (FP) PO PRN (18:17)
[2023-11-22] MEDS: BUDESONIDE 0.25 MG/2ML INH SUSP VIAL NEB PRN (17:45)
[2023-11-22] MEDS: LIDOCAINE 4% PATCH TP SCH (17:59)
[2023-11-22] MEDS ORDERED: LIDOCAINE 5% TOPICAL PATCH TP SCH (18:00)
[2023-11-23] MEDS: LIDOCAINE PATCH REMOVAL MC SCH (05:43)
[2023-11-24] MEDS: methylPREDNISolone NA SUCC 40 MG/1 ML VIAL IVPUSH SCH (23:48)
[2023-11-25 07:53] LABS: HEMATOCRIT 35.1 % (32.4-45.2); HEMOGLOBIN 11.3 GM/dL (10.7-15.3); MCHC 32.1 g/dl (32.0-36.0); MEAN CELL VOLUME 81.1 fl (80-96); MEAN PLT VOLUME 7.8 fl (7.5-11.1); PLATELET COUNT 356 10^3/uL (134-434); RBC 4.33 M/mm3 (3.60-5.2); RDW 16.9 % (11.6-15.6); WHITE BLOOD COUNT 22.7 K/mm3 (4.0-10.0)
[2023-11-25 08:14] LABS: POTASSIUM 4.1 mmol/L (3.5-5.1)
[2023-11-25 08:17] LABS: CHOLESTEROL 176 mg/dL (50-200)
[2023-11-25 08:18] LABS: ALBUMIN 3.1 g/dl (3.4-5.0); CALCIUM 8.5 mg/dL (8.5-10.1)
[2023-11-25 08:19] LABS: BLOOD UREA NITROGEN 17.7 mg/dL (7-18); LDL CHOLESTEROL (ONLY SJRH) 71 mg/dL (5-100)
[2023-11-25 08:20] LABS: HDL CHOLESTEROL 97 mg/dL (40-60)
[2023-11-25 08:22] LABS: CREATININE 0.7 mg/dL (0.55-1.3)
[2023-11-25 08:23] LABS: TOT PROT 6.3 g/dl (6.4-8.2)
[2023-11-25 08:24] LABS: BILIRUBIN,TOTAL 0.3 mg/dL (0.2-1)
[2023-11-25 09:38] LABS: ANISOCYTOSIS 0; MACROCYTOSIS 0
[2023-11-25] MEDS: AZITHROMYCIN 250 MG TABLET PO SCH (10:11)
[2023-11-26] MEDS: predniSONE 20 MG TABLET (UD) PO SCH (21:30)
[2023-11-27] MEDS: NYSTATIN 500,000 UNITS/5 ML SUSPENSION PO SCH (01:00)
[2023-11-27 09:15] LABS: HEMATOCRIT 37.8 % (32.4-45.2); HEMOGLOBIN 12.1 GM/dL (10.7-15.3); MCH 25.9 pg (25.7-33.7); MCHC 32.1 g/dl (32.0-36.0); MEAN CELL VOLUME 80.8 fl (80-96); MEAN PLT VOLUME 8.1 fl (7.5-11.1); PLATELET COUNT 388 10^3/uL (134-434); RBC 4.68 M/mm3 (3.60-5.2); RDW 17.1 % (11.6-15.6); WHITE BLOOD COUNT 27.7 K/mm3 (4.0-10.0)
[2023-11-27 09:46] LABS: POTASSIUM 4.1 mmol/L (3.5-5.1)
[2023-11-27 09:58] LABS: ALBUMIN 3.2 g/dl (3.4-5.0); BLOOD UREA NITROGEN 24.4 mg/dL (7-18); CALCIUM 8.9 mg/dL (8.5-10.1)
[2023-11-27 10:00] LABS: CREATININE 0.7 mg/dL (0.55-1.3)
[2023-11-27 10:02] LABS: BILIRUBIN,TOTAL 0.4 mg/dL (0.2-1)
[2023-11-27 10:04] LABS: TOT PROT 6.5 g/dl (6.4-8.2)
[2023-11-27 10:17] LABS: ANISOCYTOSIS 0; MACROCYTOSIS 0
[2023-11-27] MEDS ORDERED: FLUCONAZOLE 100 MG TABLET (UD) PO ONE (12:30)
[2023-11-27] MEDS: FLUCONAZOLE 100 MG TABLET (UD) PO SCH (12:48)
[2023-11-27] MEDS: CLOTRIMAZOLE 10 MG TROCHE PO SCH (12:59)
[2023-11-27] MEDS: predniSONE 20 MG TABLET (UD) PO SCH (21:42)
[2023-11-29 08:54] LABS: HEMATOCRIT 36.8 % (32.4-45.2); HEMOGLOBIN 11.7 GM/dL (10.7-15.3); MCH 25.7 pg (25.7-33.7); MCHC 31.7 g/dl (32.0-36.0); MEAN CELL VOLUME 80.9 fl (80-96); MEAN PLT VOLUME 7.1 fl (7.5-11.1); PLATELET COUNT 459 10^3/uL (134-434); RBC 4.54 M/mm3 (3.60-5.2); RDW 17.7 % (11.6-15.6)
[2023-11-29 09:04] LABS: WHITE BLOOD COUNT 35.5 K/mm3 (4.0-10.0)
[2023-11-29 09:48] LABS: ANISOCYTOSIS 3+; MACROCYTOSIS 0
[2023-11-29 14:10] VITALS: BP 118/67; PULSE 115; RESP 18; TEMP 98.2
== END 2023-11-29 14:45 | disposition home health service (06) | DRG 191 ==
LOC: JER 10:16 → JERBED 13:09 → J6S 17:21
PROVIDERS: ADMIT Internal Medicine; ATTEND Internal Medicine
DX: J44.1 Chronic obstructive pulmonary disease with (acute) exacerbation (principal); B37.0 Candidal stomatitis; I50.32 Chronic diastolic (congestive) heart failure; J96.11 Chronic respiratory failure with hypoxia; J45.901 Unspecified asthma with (acute) exacerbation; E03.9 Hypothyroidism, unspecified; I25.10 Atherosclerotic heart disease of native coronary artery without angina pectoris; I10 Essential (primary) hypertension; M35.00 Sjogren syndrome, unspecified; D47.2 Monoclonal gammopathy; M32.9 Systemic lupus erythematosus, unspecified; I11.0 Hypertensive heart disease with heart failure; K21.9 Gastro-esophageal reflux disease without esophagitis
CPT/HCPCS: 0241U-QW; 36415; 71045-TC-FY; 80053; 80061; 83036; 83880; 85025; 93005; 93010; 93306-TC; 94640; 99285-25; J0131; J1644; J1756

== ENCOUNTER 2023-12-09 11:40 | Day surgery (SDC) | payer OTHER ==
[2023-12-09] MEDS: IRON SUCROSE INJECTION 200 MG in SODIUM CHLORIDE 100 ML IVPB ONE (12:05)
[2023-12-09 12:16] VITALS: RESP 20; TEMP 98.7
[2023-12-09 12:47] VITALS: BP 113/77; PULSE 87
== END 2023-12-09 12:50 | disposition home or self-care (01) ==
LOC: J7W 11:40 → JONCNONCHE 11:40
PROVIDERS: ATTEND Internal Medicine Hematology & Oncology
PROC: 3E033GC Introduction of Other Therapeutic Substance into Peripheral Vein, Percutaneous Approach (ICD-10-PCS; principal; 2023-12-09)
DX: D50.9 Iron deficiency anemia, unspecified (principal)
CPT/HCPCS: 96365; J1756

== ENCOUNTER 2023-12-16 11:54 | Day surgery (SDC) | payer OTHER ==
[2023-12-16] MEDS: IRON SUCROSE INJECTION 200 MG in SODIUM CHLORIDE 100 ML IVPB ONE (12:40)
[2023-12-16 17:26] VITALS: RESP 18; TEMP 98.1
[2023-12-16 17:28] VITALS: BP 138/69; PULSE 58
== END 2023-12-16 13:40 | disposition home or self-care (01) ==
LOC: JONCNONCHE 11:54 → J7W 11:55 → JONCNONCHE 13:40
PROVIDERS: ATTEND Internal Medicine Hematology & Oncology
PROC: 3E033GC Introduction of Other Therapeutic Substance into Peripheral Vein, Percutaneous Approach (ICD-10-PCS; principal; 2023-12-16)
DX: D64.9 Anemia, unspecified (principal)
CPT/HCPCS: 96365; J1756

== ENCOUNTER 2024-01-25 04:38 | Day surgery (SDC) | payer OTHER ==
[2024-01-20 12:15] VITALS: BMI 30.8
[2024-01-25] MEDS ORDERED: LIDOCAINE HCL/PF 1% SDV 5ML VIAL ONE (07:12)
[2024-01-25] MEDS ORDERED: BUPIVACAINE HCL/PF 0.75% 10 ML VIAL ONE (07:12)
[2024-01-25] MEDS: BUPIVACAINE HCL/PF 0.75% 10 ML VIAL NR ONE ×3 (12:40)
[2024-01-25] MEDS: LIDOCAINE 1% P/F 10 MG/ML VIAL INF ONE ×3 (12:40)
[2024-01-25 13:33] VITALS: BP 125/78; PULSE 86; RESP 20; TEMP 97.2
[2024-01-25] MEDS ORDERED: ACETAMINOPHEN 500 MG TABLET (FP) PO PRN (14:45)
== END 2024-01-25 13:21 | disposition home or self-care (01) ==
LOC: JASU-SURG 04:38
PROVIDERS: ATTEND Pain Medicine Pain Medicine
PROC: 3E0T33Z Introduction of Anti-inflammatory into Peripheral Nerves and Plexi, Percutaneous Approach (ICD-10-PCS; 2024-01-25)
PROC: 3E0T3BZ Introduction of Anesthetic Agent into Peripheral Nerves and Plexi, Percutaneous Approach (ICD-10-PCS; principal; 2024-01-25 12:00)
DX: M47.816 Spondylosis without myelopathy or radiculopathy, lumbar region (principal)
CPT/HCPCS: 76000-TC-FY

== ENCOUNTER 2024-02-18 04:13 | Day surgery (SDC) | payer OTHER ==
[2024-02-16 11:04] VITALS: BMI 30.8
[2024-02-18] MEDS ORDERED: BUPIVACAINE HCL/PF 0.75% 10 ML VIAL ONE (06:56)
[2024-02-18] MEDS ORDERED: LIDOCAINE HCL/PF 1% SDV 5ML VIAL ONE (06:56)
[2024-02-18 09:38] VITALS: RESP 20
[2024-02-18] MEDS: LIDOCAINE 1% P/F 10 MG/ML VIAL INF ONE (11:04)
[2024-02-18] MEDS: BUPIVACAINE HCL/PF 0.75% 10 ML VIAL PNB ONE (11:04)
[2024-02-18 11:54] VITALS: BP 103/76; PULSE 100; TEMP 97.1
[2024-02-18] MEDS ORDERED: ACETAMINOPHEN 500 MG TABLET (FP) PO PRN (13:28)
== END 2024-02-18 11:50 | disposition home or self-care (01) ==
LOC: JASU-SURG 04:13
PROVIDERS: ATTEND Pain Medicine Pain Medicine
PROC: 3E0T33Z Introduction of Anti-inflammatory into Peripheral Nerves and Plexi, Percutaneous Approach (ICD-10-PCS; 2024-02-18)
PROC: 3E0T3BZ Introduction of Anesthetic Agent into Peripheral Nerves and Plexi, Percutaneous Approach (ICD-10-PCS; principal; 2024-02-18 10:45)
DX: M47.816 Spondylosis without myelopathy or radiculopathy, lumbar region (principal)
CPT/HCPCS: 76000-TC-FY

== ENCOUNTER 2024-03-27 09:53 | Inpatient (IN) | payer OTHER ==
[2024-03-27] MEDS: ALBUTEROL SO4 2.5/IPRATROPIUM 0.5 INH SOL 3 ML VIAL.NEB. NEB SCH ×2 (12:00→16:57)
[2024-03-27] MEDS ORDERED: ONDANSETRON 4 MG/2 ML VIAL ONE (12:26)
[2024-03-27] MEDS ORDERED: ACETAMINOPHEN INJECTION 100 ML IVPB ONE (12:26)
[2024-03-27] MEDS ORDERED: MAGNESIUM SULFATE IN WATER 2 GM/50 ML IVPB IVPB ONE (12:26)
[2024-03-27] MEDS ORDERED: methylPREDNISolone NA SUCC 125 MG/2 ML VIAL ONE (12:26)
[2024-03-27] MEDS ORDERED: ALBUTEROL SO4 2.5/IPRATROPIUM 0.5 INH SOL 3 ML VIAL.NEB. NEB ONE ×2 (12:26→16:50)
[2024-03-27] MEDS: ONDANSETRON 4 MG/2 ML VIAL IVPUSH ONE (12:30)
[2024-03-27 12:33] LABS: BASO % 0.6 % (0-2.0); EOS % 1.6 % (0-4.5); LYMPH % 25.1 % (8-40); MCH 25.8 pg (25.7-33.7); MCHC 31.6 g/dl (32.0-36.0); MEAN CELL VOLUME 81.5 fl (80-96); MEAN PLT VOLUME 7.6 fl (7.5-11.1); MONO % 6.5 % (3.8-10.2); NEUT % 66.2 % (42.8-82.8); PLATELET COUNT 317 10^3/uL (134-434); RBC 4.66 M/mm3 (3.60-5.2); RDW 15.4 % (11.6-15.6); WHITE BLOOD COUNT 11.1 K/mm3 (4.0-10.0)
[2024-03-27] MEDS: methylPREDNISolone NA SUCC 125 MG/2 ML VIAL IVPUSH ONE (12:35)
[2024-03-27] MEDS: ACETAMINOPHEN 1000 MG/100 ML BAG IVPB ONE (12:39)
[2024-03-27 12:49] LABS: POTASSIUM 3.9 mmol/L (3.5-5.1)
[2024-03-27 12:51] LABS: ALBUMIN 3.6 g/dl (3.4-5.0); BLOOD UREA NITROGEN 10.6 mg/dL (7-18); MAGNESIUM 2.2 mg/dL (1.8-2.4)
[2024-03-27 12:54] LABS: CREATININE 0.7 mg/dL (0.55-1.3)
[2024-03-27 12:56] LABS: BILIRUBIN,TOTAL 0.3 mg/dL (0.2-1)
[2024-03-27] MEDS: MAGNESIUM SULF 50% (8.12 MEQ/2 ML-1 GM VIAL) IVPB ONE (13:07)
[2024-03-27 13:56] LABS: EPI CELLS 8 /uL (0-25.1); HYALINE CASTS 0 /uL (0-3.1); PH,URINE 6.5 (5.0-8.0); URINE APPEARANCE CLEAR; URINE BACTERIA 6 /uL (0-1359); URINE BILIRUBIN NEGATIVE (NEGATIVE); URINE COLOR ORANGE; URINE GLUCOSE (UA) NEGATIVE (NEGATIVE); URINE KETONE NEGATIVE (NEGATIVE); URINE LEUK ESTERASE TRACE (NEGATIVE); URINE NITRITE NEGATIVE (NEGATIVE); URINE PROTEIN 1+ (NEGATIVE); URINE RBC 12168 /uL (0-23.9); URINE WBC 47 /uL (0-25.8)
[2024-03-27] MEDS ORDERED: ALBUTEROL SO4 0.083% IH SOL 2.5 MG/3 ML VIAL.NEB. NEB PRN (15:08)
[2024-03-27] MEDS ORDERED: MONTELUKAST NA 10 MG TABLET ONE (16:51)
[2024-03-27] MEDS: MONTELUKAST NA 10 MG TABLET PO ONE (16:57)
[2024-03-27] MEDS: FLUTICASONE/UMECLIDIN/VILANTER(100-62.5-25 TRELEGY ELLIPTA) INAHLER IH SCH (17:59)
[2024-03-27 21:04] VITALS: BMI 31.6
[2024-03-27] MEDS: ATORVASTATIN CA 20 MG TABLET (FP) PO SCH (21:33)
[2024-03-27] MEDS: methylPREDNISolone NA SUCC 40 MG/1 ML VIAL IVPUSH SCH (21:34)
[2024-03-27] MEDS: HYDROXYCHLOROQUINE SO4 200 MG TABLET (FP) PO SCH (22:27)
[2024-03-27] MEDS: TOBRAMYCIN/DEXAMETHASONE OPHTH. OINTMENT 1 TUBE OU SCH (22:28)
[2024-03-28] MEDS: ACETAMINOPHEN 1000 MG/100 ML BAG IVPB ONE ×3 (06:34→18:37)
[2024-03-28] MEDS: LEVOTHYROXINE NA 112 MCG TABLET (FP) PO SCH (06:35)
[2024-03-28 08:14] LABS: BASO % 0.3 % (0-2.0); HEMATOCRIT 37.4 % (32.4-45.2); HEMOGLOBIN 11.9 GM/dL (10.7-15.3); LYMPH % 9.1 % (8-40); MCH 25.5 pg (25.7-33.7); MCHC 31.8 g/dl (32.0-36.0); MEAN PLT VOLUME 8.2 fl (7.5-11.1); MONO % 1.3 % (3.8-10.2); NEUT % 89.3 % (42.8-82.8); PLATELET COUNT 306 10^3/uL (134-434); RBC 4.67 M/mm3 (3.60-5.2); RDW 14.9 % (11.6-15.6); WHITE BLOOD COUNT 13.6 K/mm3 (4.0-10.0)
[2024-03-28 08:34] LABS: POTASSIUM 4.3 mmol/L (3.5-5.1)
[2024-03-28 08:36] LABS: CALCIUM 9.1 mg/dL (8.5-10.1)
[2024-03-28 08:37] LABS: ALBUMIN 3.7 g/dl (3.4-5.0); BLOOD UREA NITROGEN 14.4 mg/dL (7-18); MAGNESIUM 2.4 mg/dL (1.8-2.4)
[2024-03-28 08:40] LABS: CREATININE 0.7 mg/dL (0.55-1.3)
[2024-03-28 08:41] LABS: BILIRUBIN,TOTAL 0.3 mg/dL (0.2-1); TOT PROT 7.1 g/dl (6.4-8.2)
[2024-03-28] MEDS: FAMOTIDINE 20 MG TABLET PO SCH (10:07)
[2024-03-28] MEDS: FLUTICASONE/UMECLIDIN/VILANTER(200-62.5-25 TRELEGY ELLIPTA) INAHLER IH SCH (10:08)
[2024-03-28] MEDS: methylPREDNISolone NA SUCC 40 MG/1 ML VIAL IVPUSH SCH (13:58)
[2024-03-28] MEDS ORDERED: ACETAMINOPHEN 325 MG TABLET (FP) PO PRN (15:00)
[2024-03-28 15:06] VITALS: RESP 18
[2024-03-28] MEDS ORDERED: PROPOFOL 20 ML ONE (16:29)
[2024-03-28] MEDS ORDERED: MIDAZOLAM HCL 2 MG/2 ML SINGLE DOSE VIAL ONE (16:29)
[2024-03-28] MEDS: CLINDAMYCIN 600 MG PREMIX BAG IVPB ONE (16:40)
[2024-03-28] MEDS ORDERED: ONDANSETRON 4 MG/2 ML VIAL IVPUSH PRN (17:06)
[2024-03-28] MEDS ORDERED: LACTATED RINGERS SOLUTION 1,000 ML IV SCH ×2 (17:15→17:25)
[2024-03-28] MEDS: ACETAMINOPHEN INJECTION 100 ML IVPB ONE (17:21)
[2024-03-28] MEDS ORDERED: ALBUTEROL SO4 0.083% IH SOL 2.5 MG/3 ML VIAL.NEB. NEB PRN (17:25)
[2024-03-28] MEDS: PATIENT'S OWN MEDICATION (NON-FORMULARY) (Cyclosporine [Restasis] 1 EACH Droperette) OP SCH (18:36)
[2024-03-28] MEDS: ALBUTEROL SO4 2.5/IPRATROPIUM 0.5 INH SOL 3 ML VIAL.NEB. NEB SCH (19:18)
[2024-03-28] MEDS: HYDROXYCHLOROQUINE SO4 200 MG TABLET (FP) PO SCH (21:37)
[2024-03-28] MEDS: TOBRAMYCIN/DEXAMETHASONE OPHTH. OINTMENT 1 TUBE OU SCH (21:37)
[2024-03-28] MEDS: ATORVASTATIN CA 20 MG TABLET (FP) PO SCH (21:37)
[2024-03-28] MEDS ORDERED: PATIENT'S OWN MEDICATION (NON-FORMULARY) (Cyclosporine [Restasis] 1 EACH) OP SCH (22:00)
[2024-03-29] MEDS: methylPREDNISolone NA SUCC 40 MG/1 ML VIAL IVPUSH SCH (00:05)
[2024-03-29] MEDS: LEVOTHYROXINE NA 112 MCG TABLET (FP) PO SCH (06:01)
[2024-03-29 08:48] LABS: HEMATOCRIT 36.4 % (32.4-45.2); HEMOGLOBIN 11.7 GM/dL (10.7-15.3); MCH 25.7 pg (25.7-33.7); MCHC 32.1 g/dl (32.0-36.0); MEAN CELL VOLUME 80.1 fl (80-96); MEAN PLT VOLUME 8.1 fl (7.5-11.1); PLATELET COUNT 344 10^3/uL (134-434); RBC 4.55 M/mm3 (3.60-5.2); RDW 15.7 % (11.6-15.6); WHITE BLOOD COUNT 19.7 K/mm3 (4.0-10.0)
[2024-03-29 09:07] LABS: POTASSIUM 4.4 mmol/L (3.5-5.1)
[2024-03-29 09:15] LABS: ALBUMIN 3.8 g/dl (3.4-5.0); BLOOD UREA NITROGEN 16.4 mg/dL (7-18)
[2024-03-29 09:16] LABS: CALCIUM 9.4 mg/dL (8.5-10.1); CREATININE 0.8 mg/dL (0.55-1.3)
[2024-03-29 09:18] LABS: BILIRUBIN,TOTAL 0.2 mg/dL (0.2-1); TOT PROT 7.2 g/dl (6.4-8.2)
[2024-03-29 09:23] LABS: N-TERMINAL BNP 351.6 pg/ml (5-125)
[2024-03-29] MEDS: FAMOTIDINE 20 MG TABLET PO SCH (09:39)
[2024-03-29] MEDS: ACETAMINOPHEN 325 MG TABLET (FP) PO PRN (09:40)
[2024-03-29] MEDS: FLUTICASONE/UMECLIDIN/VILANTER(200-62.5-25 TRELEGY ELLIPTA) INAHLER IH SCH (09:40)
[2024-03-29] MEDS: ENOXAPARIN NA (PORCINE) 40 MG/0.4 ML DISP.SYRIN SQ SCH (15:13)
[2024-03-29] MEDS: AZITHROMYCIN IVPB 500 MG/250 ML BAG IVPB ONE (23:32)
[2024-03-29] MEDS: MONTELUKAST NA 10 MG TABLET PO SCH (23:32)
[2024-03-30 09:10] LABS: HEMATOCRIT 35.2 % (32.4-45.2); HEMOGLOBIN 11.4 GM/dL (10.7-15.3); MCH 25.7 pg (25.7-33.7); MCHC 32.4 g/dl (32.0-36.0); MEAN CELL VOLUME 79.3 fl (80-96); MEAN PLT VOLUME 8.6 fl (7.5-11.1); PLATELET COUNT 290 10^3/uL (134-434); RBC 4.44 M/mm3 (3.60-5.2); RDW 14.9 % (11.6-15.6); WHITE BLOOD COUNT 11.6 K/mm3 (4.0-10.0)
[2024-03-30 09:31] LABS: POTASSIUM 4.3 mmol/L (3.5-5.1)
[2024-03-30 09:35] LABS: CALCIUM 9.1 mg/dL (8.5-10.1)
[2024-03-30 09:36] LABS: ALBUMIN 3.6 g/dl (3.4-5.0); BLOOD UREA NITROGEN 16.7 mg/dL (7-18)
[2024-03-30 09:39] LABS: CREATININE 0.7 mg/dL (0.55-1.3)
[2024-03-30 09:40] LABS: TOT PROT 6.8 g/dl (6.4-8.2)
[2024-03-30 09:41] LABS: BILIRUBIN,TOTAL 0.2 mg/dL (0.2-1)
[2024-03-30] MEDS: methylPREDNISolone NA SUCC 40 MG/1 ML VIAL IVPUSH SCH (12:08)
[2024-03-31 06:26] VITALS: BP 139/67; TEMP 98.5
[2024-03-31] MEDS: predniSONE 20 MG TABLET (UD) PO SCH (09:52)
[2024-03-31 09:55] LABS: HEMATOCRIT 37.2 % (32.4-45.2); HEMOGLOBIN 12.1 GM/dL (10.7-15.3); MCH 26.1 pg (25.7-33.7); MCHC 32.4 g/dl (32.0-36.0); MEAN CELL VOLUME 80.4 fl (80-96); RBC 4.63 M/mm3 (3.60-5.2); RDW 15.4 % (11.6-15.6)
[2024-03-31 10:09] LABS: POTASSIUM 3.1 mmol/L (3.5-5.1)
[2024-03-31 10:10] LABS: MEAN PLT VOLUME 8.1 fl (7.5-11.1); PLATELET COUNT 234 10^3/uL (134-434)
[2024-03-31 10:13] LABS: MAGNESIUM 2.1 mg/dL (1.8-2.4)
[2024-03-31 10:16] LABS: CREATININE 0.7 mg/dL (0.55-1.3)
[2024-03-31 11:17] VITALS: PULSE 114
== END 2024-03-31 15:21 | disposition home or self-care (01) | DRG 988 ==
LOC: JER 09:53 → JERBED 16:35 → J5S 20:08
PROVIDERS: ADMIT Internal Medicine; ATTEND Internal Medicine
PROC: 0T768DZ Dilation of Right Ureter with Intraluminal Device, Via Natural or Artificial Opening Endoscopic (ICD-10-PCS; principal; 2024-03-28 15:30)
PROC: BT1DYZZ Fluoroscopy of Right Kidney, Ureter and Bladder using Other Contrast (ICD-10-PCS; 2024-03-28 15:30)
DX: J44.1 Chronic obstructive pulmonary disease with (acute) exacerbation (principal); I50.32 Chronic diastolic (congestive) heart failure; J45.901 Unspecified asthma with (acute) exacerbation; N13.2 Hydronephrosis with renal and ureteral calculous obstruction; J96.11 Chronic respiratory failure with hypoxia; E78.5 Hyperlipidemia, unspecified; K21.9 Gastro-esophageal reflux disease without esophagitis; I11.0 Hypertensive heart disease with heart failure; I25.10 Atherosclerotic heart disease of native coronary artery without angina pectoris; H10.9 Unspecified conjunctivitis; E03.9 Hypothyroidism, unspecified; R31.9 Hematuria, unspecified
CPT/HCPCS: 36415; 71046-TC-FY; 74176-TC; 76000-TC-FY; 80048; 80053; 81003; 82550; 83735; 83880; 84100; 84443; 84484; 85025; 85027; 87086; 93005; 93010; 94150; 94640; 94760; 94761; 97116-GP; 97161-GP; 99285-25; C2617; J0131

== ENCOUNTER 2024-04-14 04:16 | Day surgery (SDC) | payer OTHER ==
[2024-03-20 09:42] VITALS: BMI 30.8
[2024-04-14 08:35] VITALS: RESP 18
[2024-04-14] MEDS ORDERED: ACETAMINOPHEN 500 MG TABLET (FP) PO PRN (09:15)
[2024-04-14] MEDS: LIDOCAINE HCL 1% PRESERVATIVE FREE - 30ML VIAL IJ ONE ×2 (11:06)
[2024-04-14] MEDS: LIDOCAINE HCL 2% 100 MG/5 ML DISP.SYRIN NR ONE ×2 (11:06)
[2024-04-14] MEDS: BUPIVACAINE 0.75% IN DEXTROSE/PF 2ML AMPULE NR ONE ×2 (11:06)
[2024-04-14] MEDS: DEXAMETHASONE SOD PHOSPHATE 10 MG/1 ML VIAL IVPUSH ONE ×2 (11:06)
[2024-04-14 12:22] VITALS: BP 140/80; PULSE 80; TEMP 97.2
[2024-04-20] MEDS ORDERED: MIDAZOLAM HCL 2 MG/2 ML SINGLE DOSE VIAL ONE (07:51)
[2024-04-20] MEDS ORDERED: PROPOFOL 20 ML ONE (08:02)
[2024-04-20] MEDS ORDERED: ONDANSETRON 4 MG/2 ML VIAL ONE (08:24)
[2024-04-20] MEDS ORDERED: DEXAMETHASONE SOD PHOSPHATE 4 MG/1 ML VIAL ONE (08:24)
== END 2024-04-14 12:22 | disposition home or self-care (01) ==
LOC: JASU-SURG 04:16
PROVIDERS: ATTEND Pain Medicine Pain Medicine
PROC: 015B3ZZ Destruction of Lumbar Nerve, Percutaneous Approach (ICD-10-PCS; principal; 2024-04-14 09:45)
DX: M47.816 Spondylosis without myelopathy or radiculopathy, lumbar region (principal)
CPT/HCPCS: 76000-TC-FY; J1100

== ENCOUNTER 2024-04-20 04:25 | Day surgery (SDC) | payer OTHER ==
[2024-04-17 12:54] VITALS: BMI 30.8
[2024-04-20] MEDS: ceFAZolin 2 GRAM PREMIX BAG IVPB ONE (08:05)
[2024-04-20] MEDS: IOHEXOL 300 MG/ML INFUS..BTL IV ONE ×3 (08:13)
[2024-04-20] MEDS ORDERED: ACETAMINOPHEN 325 MG TABLET (FP) PO PRN (08:35)
[2024-04-20] MEDS ORDERED: ONDANSETRON 4 MG/2 ML VIAL IVPUSH PRN (08:35)
[2024-04-20] MEDS ORDERED: LACTATED RINGERS SOLUTION 1,000 ML IV SCH (08:45)
[2024-04-20 10:34] VITALS: RESP 16; TEMP 97.2
[2024-04-20 12:51] VITALS: BP 122/72; PULSE 80
== END 2024-04-20 12:56 | disposition home or self-care (01) ==
LOC: JASU-SURG 04:25
PROVIDERS: ATTEND Urology
PROC: 0TC68ZZ Extirpation of Matter from Right Ureter, Via Natural or Artificial Opening Endoscopic (ICD-10-PCS; principal; 2024-04-20 07:30)
PROC: 0T768DZ Dilation of Right Ureter with Intraluminal Device, Via Natural or Artificial Opening Endoscopic (ICD-10-PCS; 2024-04-20 07:30)
DX: N20.1 Calculus of ureter (principal)
CPT/HCPCS: 76000-TC-FY; 94760; C1758; C2617

== ENCOUNTER 2024-08-10 05:24 | Day surgery (SDC) | payer OTHER ==
[2024-08-09 11:18] VITALS: BMI 29.5
[2024-08-10 12:29] VITALS: TEMP 98.3
[2024-08-10 15:15] VITALS: RESP 15
[2024-08-10 15:20] VITALS: BP 130/71; PULSE 68
== END 2024-08-10 13:08 | disposition home or self-care (01) ==
LOC: JASU-ENDO 05:24
PROVIDERS: ATTEND Internal Medicine Gastroenterology
PROC: 0DB68ZX Excision of Stomach, Via Natural or Artificial Opening Endoscopic, Diagnostic (ICD-10-PCS; 2024-08-10)
PROC: 0DB78ZX Excision of Stomach, Pylorus, Via Natural or Artificial Opening Endoscopic, Diagnostic (ICD-10-PCS; 2024-08-10)
PROC: 0DBM8ZX Excision of Descending Colon, Via Natural or Artificial Opening Endoscopic, Diagnostic (ICD-10-PCS; principal; 2024-08-10 11:30)
DX: Z12.11 Encounter for screening for malignant neoplasm of colon (principal); D12.4 Benign neoplasm of descending colon; K64.8 Other hemorrhoids; K29.50 Unspecified chronic gastritis without bleeding; B96.81 Helicobacter pylori [H. pylori] as the cause of diseases classified elsewhere; Z86.0100 Personal history of colon polyps, unspecified
CPT/HCPCS: 88305-TC; 88341-TC; 88342-TC

== ENCOUNTER 2024-11-17 09:42 | Day surgery (SDC) | payer OTHER ==
[2024-11-17] MEDS: IRON SUCROSE INJECTION 200 MG in SODIUM CHLORIDE 100 ML IVPB ONE (10:47)
[2024-11-17 14:09] VITALS: RESP 20; TEMP 98.7
[2024-11-17 14:19] VITALS: BP 108/75; PULSE 86
== END 2024-11-17 11:45 | disposition home or self-care (01) ==
LOC: JONCCHEMO 09:42 → J7W 10:29 → JONCCHEMO 11:45
PROVIDERS: ATTEND Internal Medicine Hematology & Oncology
PROC: 3E033GC Introduction of Other Therapeutic Substance into Peripheral Vein, Percutaneous Approach (ICD-10-PCS; principal; 2024-11-17)
DX: D50.9 Iron deficiency anemia, unspecified (principal)
CPT/HCPCS: 96365; J1756

== ENCOUNTER 2024-11-24 10:19 | Day surgery (SDC) | payer OTHER ==
[2024-11-24] MEDS: IRON SUCROSE INJECTION 200 MG in SODIUM CHLORIDE 100 ML IVPB ONE (10:19)
[2024-11-24 14:40] VITALS: RESP 20; TEMP 98.1
[2024-11-24 15:14] VITALS: BP 135/77; PULSE 81
== END 2024-11-24 12:30 | disposition home or self-care (01) ==
LOC: JONCCHEMO 10:19
PROVIDERS: ATTEND Internal Medicine Hematology & Oncology
PROC: 3E033GC Introduction of Other Therapeutic Substance into Peripheral Vein, Percutaneous Approach (ICD-10-PCS; principal; 2024-11-24)
DX: D50.9 Iron deficiency anemia, unspecified (principal)
CPT/HCPCS: 96365; J1756

== ENCOUNTER 2024-12-01 09:26 | Day surgery (SDC) | payer OTHER ==
[2024-12-01] MEDS: IRON SUCROSE INJECTION 200 MG in SODIUM CHLORIDE 100 ML IVPB ONE (09:57)
[2024-12-01 14:21] VITALS: TEMP 97.5
[2024-12-01 14:25] VITALS: BP 123/67; PULSE 77; RESP 18
== END 2024-12-01 10:50 | disposition home or self-care (01) ==
LOC: JONCCHEMO 09:26
PROVIDERS: ATTEND Internal Medicine Hematology & Oncology
PROC: 3E033GC Introduction of Other Therapeutic Substance into Peripheral Vein, Percutaneous Approach (ICD-10-PCS; principal; 2024-12-01)
DX: D50.9 Iron deficiency anemia, unspecified (principal)
CPT/HCPCS: 96365; J1756

== ENCOUNTER 2024-12-08 09:58 | Day surgery (SDC) | payer OTHER ==
[2024-12-08] MEDS: IRON SUCROSE INJECTION 200 MG in SODIUM CHLORIDE 100 ML IVPB ONE (10:34)
[2024-12-08 15:13] VITALS: RESP 22; TEMP 98.2
[2024-12-08 15:16] VITALS: BP 123/78; PULSE 86
== END 2024-12-08 11:30 | disposition home or self-care (01) ==
LOC: JONCCHEMO 09:58
PROVIDERS: ATTEND Internal Medicine Hematology & Oncology
PROC: 3E033GC Introduction of Other Therapeutic Substance into Peripheral Vein, Percutaneous Approach (ICD-10-PCS; principal; 2024-12-08)
DX: D50.9 Iron deficiency anemia, unspecified (principal)
CPT/HCPCS: 96360; J1756

== ENCOUNTER 2025-06-05 09:30 | Emergency (ER) | payer OTHER ==
[2025-06-05 09:43] VITALS: BMI 27.3
[2025-06-05] MEDS ORDERED: ONDANSETRON 4 MG/2 ML VIAL ONE (10:38)
[2025-06-05] MEDS ORDERED: FAMOTIDINE 20 MG/50 ML IVPB 20 MG/50 ML MG IVPB ONE (10:38)
[2025-06-05] MEDS ORDERED: ACETAMINOPHEN INJECTION 100 ML ONE (10:38)
[2025-06-05] MEDS ORDERED: MAG HYDROX/AL HYDROX/SIMETH 30 ML UNIT-DOSE CUP ONE (10:38)
[2025-06-05 10:47] LABS: ABSOLUTE IMMATURE GRANULOCYTES 0.03 x10^3/uL (0.0-0.031); BASOPHILS # 0.05 x10^3/uL (0.01-0.08); EOSINOPHIL % 1.7 % (0.7-5.8); EOSINOPHILS # 0.17 x10^3/uL (0.04-0.36); MCHC 31.4 g/dl (32.2-35.5); MEAN CELL VOLUME 85.7 fl (79.4-94.8); MEAN PLT VOLUME 10.8 fl (9.4-12.3); MONOCYTE # 0.86 x10^3/uL (0.24-0.86); MONOCYTE % 8.5 % (4.7-12.5); RDW 15.2 % (12.4-16.4)
[2025-06-05] MEDS: FAMOTIDINE 20 MG/50 ML IVPB 20 MG/50 ML MG IVPB ONE (10:47)
[2025-06-05] MEDS: MAG HYDROX/AL HYDROX/SIMETH 30 ML UNIT-DOSE CUP PO ONE (10:47)
[2025-06-05] MEDS: SODIUM CHLORIDE 1,000 ML IV STA (10:47)
[2025-06-05] MEDS: ACETAMINOPHEN 1000 MG/100 ML BAG IVPB ONE (10:48)
[2025-06-05] MEDS: ONDANSETRON 4 MG/2 ML VIAL IVPUSH ONE (10:48)
[2025-06-05 10:51] LABS: EPI CELLS 15 /uL (0-25.1); HYALINE CASTS 1 /uL (0-3.1); URINE APPEARANCE CLEAR; URINE BACTERIA 42 /uL (0-1359); URINE BILIRUBIN NEGATIVE (NEGATIVE); URINE COLOR YELLOW; URINE GLUCOSE (UA) NEGATIVE (NEGATIVE); URINE KETONE NEGATIVE (NEGATIVE); URINE LEUK ESTERASE TRACE (NEGATIVE); URINE NITRITE NEGATIVE (NEGATIVE); URINE PROTEIN TRACE (NEGATIVE); URINE RBC 39 /uL (0-23.9); URINE UROBILINOGEN 1.0 mg/dL (0.2-1.0); URINE WBC 15 /uL (0-25.8)
[2025-06-05 10:57] LABS: INR 1.08 (0.83-1.09); PROTHROMBIN TIME (PATIENT) 11.8 SEC (9.7-13.0)
[2025-06-05 11:00] LABS: ACTIVATED PTT 32.4 SECONDS (25.2-36.5)
[2025-06-05 11:28] LABS: GLUCOSE,RANDOM 92.0 mg/dL (74-106); TOT PROT 7.5 g/dl (6.4-8.2)
[2025-06-05 11:29] LABS: CO2 23.0 mmol/L (21-32)
[2025-06-05 11:31] LABS: ALK PHOS 56.0 U/L (40-150)
[2025-06-05 11:33] LABS: CREATININE 0.58 mg/dL (0.55-1.3); SGOT/AST 48.0 U/L (5-34); SGPT/ALT 28.0 U/L (0-55)
[2025-06-05 13:43] VITALS: BP 129/75; PULSE 83; RESP 17; TEMP 98.5
== END 2025-06-05 19:41 | disposition home or self-care (01) ==
LOC: JER 09:30
PROC: 3E033GC Introduction of Other Therapeutic Substance into Peripheral Vein, Percutaneous Approach (ICD-10-PCS; principal; 2025-06-05)
PROC: 3E033GC Introduction of Other Therapeutic Substance into Peripheral Vein, Percutaneous Approach (ICD-10-PCS; 2025-06-05)
PROC: 3E033NZ Introduction of Analgesics, Hypnotics, Sedatives into Peripheral Vein, Percutaneous Approach (ICD-10-PCS; 2025-06-05)
PROC: 3E0337Z Introduction of Electrolytic and Water Balance Substance into Peripheral Vein, Percutaneous Approach (ICD-10-PCS; 2025-06-05)
DX: M47.816 Spondylosis without myelopathy or radiculopathy, lumbar region (principal); M54.50 Low back pain, unspecified; R10.31 Right lower quadrant pain; R68.83 Chills (without fever); R53.83 Other fatigue; R11.2 Nausea with vomiting, unspecified; M79.651 Pain in right thigh; M79.652 Pain in left thigh; K59.00 Constipation, unspecified
CPT/HCPCS: 36415; 71045-TC-FY; 72131-TC; 72170-TC-FY; 73502-TC-RT-FY; 74177-TC; 80053; 81003; 83690; 83735; 84100; 85025; 85610; 85730; 86850; 86900; 86901; 87086; 99285-25